=== PATIENT | male | born 1960 | race African-American/Black ===

== ENCOUNTER 2024-02-09 13:51 | Outpatient (REF) | payer OTHER, SELFPAY ==
--- OUTSIDE RECORDS SUMMARY | 2024-02-15 02:42 | XMS_ITS | Continuity of Care Document ---
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 It does not include entries that were removed or entered in error. Problem Status Onset Date Problem Type Date of Resolution Comments Source Abdominal hernia Active Condition Dec 14, 2022 Entered By: BOY DELONG Comment: Umbilical Hernia; Newly Symptomatic DEC 27: Get US of ABD Dec Entered By: BOY DELONG Comment: Consider GEN SURG Referral After US CompleteJun 27, 2023 Entered By: BOY DELONG Comment: US, ABD JUN 28: +Fat-Containing Hernia;Jun 27, 2023 Entered By: BOY DELONG Comment: PtDeejay Flanagans GEN SURG al [place] Acute bronchitis Active Condition May 14, 2022 Entered By: BOY DELONG Comment: Seen SPOPC MAR 29: Dx Bronchitis; Rx'd Abx;May 14, 2022 Entered By: BOY DELONG Comment: CXR, MAR 29 No Acute Cardio-Pulmo Disease;Apr 05, 2022 Entered By: BOY DELONG Comment: Still Has Reactive Cough (after finishing abx); Tx Symptomatically Mar Entered By: BOY DELONG Comment: CT, Thorax MAY 27 at [facility]:May 21, 2022 Entered By: BOY DELONG Comment: No Acute Pumo Processes; Some Atelectasis Present;May 21, 2022 Entered By: BOY DELONG Comment: Some Mild Interstial Thickening RML & LingulaMay 21, 2022 Entered By: BOY DELONG Comment: He Declines PULMO Consult as of MAY 27: May Choose To Go Later [place] Ambulatory ECG normal Active Condition Oct 20, 2022 Entered By: BOY DELONG Comment: EKG, OCT 27: NSR (has chest wall pain)Jun 02, 2023 Entered By: BOY DELONG Comment: ECHO (TTE) MAY 28: EF 60%; Mild LVH, Moderate Pulmonic Regurg;Jan 06, 2024 Entered By: BOY DELONG Comment: +Aortic Sclerosis; But, w/o Stenosis [place] Benign hypertension Active Condition Apr 28, 2023 Entered By: BOY DELONG Comment: US, Carotids APR 30: No Hemodynamically Signif StenosisApr 2023 Entered By: BOY DELONG Comment: US, Aorta APR 30: no AAA [place] Chronic cough Active Condition Jan Entered By: BOY DELONG Comment: Some Associ SOB; CT Thorax, JAN 28: No Signs ILD or Pulmo FibrosissNov 2023 Entered By: BOY DELONG Comment: CT, Thorax [facility] JAN 28: Neg Signs of Interstitial Lung DiseaseNov 2023 Entered By: BOY DELONG Comment: Maxilo-Fac CT [facility] JAN 28: Minimal Ethmoid/Maxillary Mucosal Thickening [place] Dyspnea Active Condition Mar 27 Entered By: BOY DELONG Comment: CXR and PFT's Done 2020 NL per pt.Apr 28, 2021 Entered By: BOY DELONG Comment: See Report CT of Thorax APR 28: Mild Interstitial Findings Apr 28, 2021 Entered By: BOY DELONG Comment: Incidental Renal & Hepatic Cysts; Get US ABD NextJun 05, 2021 Entered By: BOY DELONG Comment: Interstitial Findings c/w Post - Inflamm/Infectiou s Etio [place] Femoral acetabular impingement Active Condition Jun 10, 2023 Entered By: BOY DELONG Comment: R Side [place] Foot pain Active Condition Oct 16 Entered By: BOY DELONG Comment: Bilat Plantar Fasciitis; Bilat Pes Planus [place] Gout Active Condition Jan 05 Entered By: BOY DELONG Comment: See PM&R Addendum Note Dated NOV 28; +Crystal on Aspiration L KneeSep 2023 Entered By: BOY DELONG Comment: Rx Colchicine; Check Ur Acid at Time of Next Routine LabsSep 2023 Entered By: BOY DELONG Comment: Ur Acid Historically WNL per Labs at [facility] Housing insecurity Active Condition [facility] Hyperglycemia Active Condition Jun Entered By: BOY DELONG Comment: A1C only 5.8 as of JUN 28 [place] Low back pain Active Condition Oct Entered By: BOY DELONG Comment: Recurrent x Yrs; Not RadicularSep 2021 Entered By: BOY DELONG Comment: X-Ray, L-Spine NOV 26: Multi-Level Degen Jt. Disease/OASep 2021 Entered By: BOY DELONG Comment: Doing PT NOV 26 [place] Multiple renal cysts Active Condition Jun 05, 2021 Entered By: BOY DELONG Comment: US, ABD MAY 26: Multiple Benign-Appearing Renal CystsJun 05, 2021 Entered By: BOY DELONG Comment: also; Small Benign Hepatic Lesions [place] Nocturia Active Condition Mar 27 Entered By: BOY DELONG Comment: Bladder Outlet Syndome; Saw [facility]RO approx 2019 [place] Pain in right hip joint Active Condition Oct 13, 2022 Entered By: BOY DELONG Comment: See X-Ray Report Dated OCT 27 from [facility]: Impingement Syndrome ? [place] Pain of bilateral knee regions Active Condition Mar 27, 2021 Entered By: BOY DELONG Comment: Bone on Bone OA B/LJan 2021 Entered By: BOY DELONG Comment: PSH: Arthroscopy, L Knee (early s?)Mar 27, 2021 Entered By: BOY DELONG Comment: Gets Knee Inj's via [facility]; last seen ep 2021 Entered By: BOY DELONG Comment: X-Rays, Both Knees NOV 26: Varying Degress of OA B/LApr 2023 Entered By: BOY DELONG Comment: See Med Rehab Note, [facility] Dated MAY 27 and MAY 28Nov 2023 Entered By: BOY DELONG Comment: pending Ortho Eval FEB 27 [place] Sciatica Active Condition Feb 02 Entered By: BOY DELONG Comment: Degen Arthritis, L-Spine (X Ray Valente 2021) [place] Screening for malignant neoplasm of colon done Active Condition Mar 27, 2021 Entered By: BOY DELONG Comment: Screen Colonoscopy 2019; No CRC; +Benign PolypsMar 27, 2021 Entered By: BOY DELONG Comment: repeat 2024 [place] Diagnosis: ICD-10-CM M54.30 Sciatica, unspecified side Active Diagnosis [facility] Diagnosis: ICD-10-CM M17.0 Bilateral primary osteoarthritis of knee Active Diagnosis [facility] Diagnosis: ICD-10-CM F32.1 Major depressive disorder, single episode, moderate Active Diagnosis [facility] Diagnosis: ICD-10-CM R73.9 Hyperglycemia, unspecified Active Diagnosis [place] Diagnosis: ICD-10-CM Z59.819 Housing instability, housed unspecified Active Diagnosis [facility] Diagnosis: ICD-10-CM Z59.811 Housing instability, housed, with risk of homelessness Active Diagnosis [id number] Diagnosis: ICD-10-CM M25.859 Other specified joint disorders, unspecified hip Active Diagnosis [facility] [place] [facility] Diagnosis: ICD-10-CM Z71.89 Other specified counseling Active Diagnosis [place] Diagnosis: ICD-10-CM M25.561 Pain in right knee Active Diagnosis [facility] [place] Diagnosis: ICD-10-CM I48.11 Longstanding persistent atrial fibrillation Active Diagnosis [facility] Diagnosis: ICD-10-CM I10 Essential (primary) hypertension Active Diagnosis [facility] Diagnosis: ICD-10-CM M16.11 Unilateral primary osteoarthritis, right hip Active Diagnosis [facility] Diagnosis: ICD-10-CM M25.551 Pain in right hip Active Diagnosis [facility] [place] [facility] Diagnosis: ICD-10-CM R07.9 Chest pain, unspecified Active Diagnosis [place] Diagnosis: ICD-10-CM Z13.6 Encounter for screening for cardiovascular disorders Active Diagnosis [facility] Diagnosis: ICD-10-CM M79.651 Pain in right thigh Active Diagnosis [place] Medications Combined list of outpatient medications from Department of Defense and [facility] Affairs facilities.Medications provided include 1) outpatient medications from the last 15 months, and 2) patient-reported medications. Medication Details Route Status Patient Instructions Prescription Expires Prescription Number Last Dispense Date Ordering Provider Order Date Order Qty Source ALBUTEROL 90MCG/ACTUA T (CFC-F) INHL,ORAL,8 .5GM DOSE COUNTER INHALE 1 PUFF BY MOUTH ONCE DAILY NEEDED FOR BRONCHOS PASM RESPIR ATORY (INHAL ATION) ACTIVE 06/10/2024 [id number] BENNY DELONG 2023 1 [place] AMLODIPINE BESYLATE 10MG TAB TAKE ONE TABLET BY MOUTH ONCE DAILY FOR BLOOD PRESSURE /HEART, DO NOT TAKE WITH GRAPEFRU IT JUICE ORAL ACTIVE 01/06/2025 [id number] 4 BENNY DELONG 2023 90 [place] AMLODIPINE BESYLATE 10MG TAB TAKE ONE TABLET BY MOUTH ONCE DAILY FOR BLOOD PRESSURE /HEART, DO NOT TAKE WITH GRAPEFRU IT JUICE ORAL DISCONT INUED 04/04/2024 [id number] BENNY DELONG 2023 90 [place] AMLODIPINE BESYLATE 10MG TAB TAKE ONE TABLET BY MOUTH ONCE DAILY FOR BLOOD PRESSURE /HEART, DO NOT TAKE WITH GRAPEFRU IT JUICE ORAL DISCONT INUED 12/15/2023 [id number] BENNY DELONG 2022 90 [place] CELECOXIB 200MG CAP TAKE ONE CAPSULE BY MOUTH TWICE DAILY NEEDED FOR RHEUMATO ID ARTHRITI S ORAL ACTIVE 08/09/2024 [id number] BENNY DELONG 2023 60 [facility] CETIRIZINE HCL 10MG TAB TAKE TWO TABLETS BY MOUTH ONCE DAILY FOR ALLERGIE S ORAL ACTIVE 02/03/2025 [id number] BENNY DELONG 2023 60 [place] COLCHICINE 0.6MG TAB TAKE 2 TABLETS AT ONSET BY MOUTH ONE TIME AND TAKE 1 TABLET ONE HOUR LATER ONE TIME FOR GOUT [MAY ONLY REPEAT COURSE ONCE EVERY TWO WEEKS][T OTAL OF TWO COURSES IN 30 DAYS][6 TABLETS PER 30 DAYS] FOR GOUT [MAY ONLY REPEAT COURSE ONCE EVERY TWO WEEKS][T OTAL OF TWO COURSES IN 30 DAYS][6 TABLETS PER 30 DAYS] ORAL ACTIVE 12/27/2024 [id number] BENNY DELONG 2023 6 [place] COLCHICINE 0.6MG TAB TAKE 2 TABLETS AT ONSET BY MOUTH ONE TIME AND TAKE 1 TABLET ONE HOUR LATER ONE TIME FOR GOUT [MAY ONLY REPEAT COURSE ONCE EVERY TWO WEEKS][T OTAL OF TWO COURSES IN 30 DAYS][6 TABLETS PER 30 DAYS] FOR GOUT [MAY ONLY REPEAT COURSE ONCE EVERY TWO WEEKS][T OTAL OF TWO COURSES IN 30 DAYS][6 TABLETS PER 30 DAYS] ORAL DISCONT INUED 11/23/2024 [id number] BENNY DELONG 2023 6 [place] DOXEPIN 3MG TAB TAKE ONE TABLET BY MOUTH AT BEDTIME NEEDED FOR INSOMNIA ORAL ACTIVE 09/09/2024 [id number] ASHOK MARION 2023 30 [facility] HYALURONATE NA (DUROLANE) 20MG/ML INJ,SYRINGE ,3ML INJECT 60MG INTRA-AR TICULAR ONE TIME OSTEOART HRITIS OF THE KNEE INTRA- ARTICU LAR ACTIVE 04/01/2024 [id number] JAM MCFADDEN 2023 2 [facility] HYDROCHLORO THIAZIDE 25MG TAB TAKE ONE-HALF TABLET BY MOUTH ONCE DAILY ORAL ACTIVE 01/06/2025 [id number] 4 BENNY DELONG 2023 45 [place] HYDROCHLORO THIAZIDE 25MG TAB TAKE ONE-HALF TABLET BY MOUTH ONCE DAILY ORAL DISCONT INUED 04/04/2024 [id number] BENNY DELONG 2023 45 [place] HYDROCHLORO THIAZIDE 25MG TAB TAKE ONE-HALF TABLET BY MOUTH ONCE DAILY ORAL DISCONT INUED 12/15/2023 [id number] BENNY DELONG 2022 45 [place] LORATADINE 10MG TAB TAKE ONE TABLET BY MOUTH ONCE DAILY FOR ALLERGY ORAL DISCONT INUED BY PROVIDE R 06/10/2024 [id number] BENNY DELONG 2023 30 [place] LOSARTAN 25MG TAB TAKE ONE TABLET BY MOUTH ONCE DAILY FOR BLOOD PRESSURE /HEART ORAL ACTIVE 04/05/2024 [id number] 4 BENNY DELONG 2023 90 [place] LOSARTAN 25MG TAB TAKE ONE TABLET BY MOUTH ONCE DAILY FOR BLOOD PRESSURE /HEART ORAL DISCONT INUED 09/08/2023 [id number] BENNY DELONG 2023 90 [place] LOSARTAN 25MG TAB TAKE ONE TABLET BY MOUTH ONCE DAILY FOR BLOOD PRESSURE /HEART ORAL DISCONT INUED 08/22/2023 [id number] BALJEETBENNY HN 2023 90 [facility] LOSARTAN 25MG TAB TAKE ONE TABLET BY MOUTH ONCE DAILY FOR BLOOD PRESSURE /HEART ORAL DISCONT INUED 04/04/2024 [id number] DELONGBENNY HN 2023 30 [place] MULTIVITAMI NS CAP/TAB TAKE 1 TABLET BY MOUTH ONCE DAILY FOR VITAMIN SUPPLEME NTATION ORAL ACTIVE 10/28/2024 [id number] 4 ASHOK MARION 2023 100 [facility] SERTRALINE HCL 100MG TAB TAKE ONE-HALF TABLET BY MOUTH ONCE DAILY FOR MAJOR DEPRESSI VE DISORDER ORAL ACTIVE 10/28/2024 [id number] ASHOK MARION 2023 45 [facility] SERTRALINE HCL 100MG TAB TAKE ONE-HALF TABLET BY MOUTH ONCE DAILY FOR MAJOR DEPRESSI VE DISORDER ORAL DISCONT INUED (EDIT) 09/09/2024 [id number] ASHOK MARION 2023 15 [facility] SERTRALINE HCL 50MG TAB TAKE ONE-HALF TABLET BY MOUTH ONCE DAILY FOR MAJOR DEPRESSI VE DISORDER ORAL DISCONT INUED (EDIT) 08/05/2024 [id number] ASHOK MARION 2023 15 [facility] SILDENAFIL CITRATE 100MG TAB TAKE ONE TABLET BY MOUTH DIRECTED TAKE 1 HOUR PRIOR TO SEXUAL ACTIVITY TRY ONE HALF PILL; IF ONE HALF DOES NOT WORK THEN MAY TAKE ONE WHOLE TABLET NEXT TIME; NEVER TAKE MORE THAN ONE TABLET AT ONE TIME TAKE 1 HOUR PRIOR TO SEXUAL ACTIVITY TRY ONE HALF PILL; IF ONE HALF DOES NOT WORK THEN MAY TAKE ONE WHOLE TABLET NEXT TIME; NEVER TAKE MORE THAN ONE TABLET AT ONE TIME ORAL ACTIVE 07/25/2024 [id number] BENNY DELONG 2023 6 [place] Immunizations Combined list of available immunizations from the Department of Defense and Veterans Affairs facilities. 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 COVID-19 (PFIZER), MRNA, LNP-S, PF, 30 MCG/0.3 ML DOSE 2 2020 208 complet ed [facility] COVID-19 (PFIZER), MRNA, LNP-S, PF, 30 MCG/0.3 ML DOSE 1 2020 208 complet ed [facility] Results Combined list of recent chemistry, hematology and other laboratory results from Department of Defense and Veterans Affairs, ranging from 15 months to all on record, depending upon the facility. Order Name Results Value Reference Range Date Interpretation Specimen Comments Source MICROALB UMIN CREATINI NE RATIO PANEL MICROALBUM IN/CREATIN INE [MASS RATIO] IN URINE 13.8 mg/g 0 - 29.9 01/05 Specimen Type: URINE No comment entered. Ordering Provider: BOY DELONG Report Released Date/Time: Nov 23, 2023 08:33 AM Reporting Lab[facility] [address] [facility] [address] Performing Lab: [address] [address] [employer] MICROALB UMIN CREATINI NE RATIO PANEL MICROALBUM IN [MASS/VOLU ME] IN URINE 2.5 mg/dL 01/05 Specimen Type: URINE No comment entered. Ordering Provider: BOY DELONG Report Released Date/Time: Nov 23, 2023 08:33 AM Reporting Lab: [address] [address] Performing Lab: [address] [address] [place] MICROALB UMIN CREATINI NE RATIO PANEL CREATININE [MASS/VOLU ME] IN URINE 180.82 mg/dL 01/05 Specimen Type: URINE No comment entered. Ordering Provider: BOY DELONG Report Released Date/Time: Nov 23, 2023 08:33 AM Reporting Lab: [address] [address] Performing Lab: [address] [address] [place] URINALYS IS COLOR OF URINE Light-Ye llow 01/05 Specimen Type: URINE Comment: If Glucose = >500 and Ketones are positive, please alert the Physician. Ordering Provider: BOY DELONG Report Released Date/Time: Nov 23, 2023 08:33 AM Reporting Lab: [address] [address] Performing Lab: [address] [address] [place] URINALYS IS APPEARANCE OF URINE Clear 01/05 Specimen Type: URINE Comment: If Glucose = >500 and Ketones are positive, please alert the Physician. Ordering Provider: BOY DELONG Report Released Date/Time: Nov 23, 2023 08:33 AM Reporting Lab: [address] [address] Performing Lab: [address] [address] [place] URINALYS IS GLUCOSE [MASS/VOLU ME] IN URINE Normalmg /dL 01/05 Specimen Type: URINE Comment: If Glucose = >500 and Ketones are positive, please alert the Physician. Ordering Provider: BOY DELONG Report Released Date/Time: Nov 23, 2023 08:33 AM Reporting Lab: [facility] [address] [facility] [address] Performing Lab: [facility]AMPUSUSE[address] [address] [place] URINALYS IS KETONES [MASS/VOLU ME] IN URINE BY TEST STRIP NEGATIVE mg/dL 01/05 Specimen Type: URINE Comment: If Glucose = >500 and Ketones are positive, please alert the Physician. Ordering Provider: BOY DELONG Report Released Date/Time: Nov 23, 2023 08:33 AM Reporting Lab: [facility] [address] [address] Performing Lab: [facility] [address] [address] [place] URINALYS IS ERYTHROCYT ES [PRESENCE] IN URINE SEDIMENT BY LIGHT MICROSCOPY NEGATIVE mg/dL 01/05 Specimen Type: URINE Comment: If Glucose = >500 and Ketones are positive, please alert the Physician. Ordering Provider: BOY DELONG Report Released Date/Time: Nov 23, 2023 08:33 AM Reporting Lab: [facility] CAMPUSUSETS [address] [address] Performing Lab: [facility] CAMPUSUSE[address] [address] [place] URINALYS IS PROTEIN [MASS/VOLU ME] IN URINE BY TEST STRIP 10 mg/dL 01/05 Specimen Type: URINE Comment: If Glucose = >500 and Ketones are positive, please alert the Physician. Ordering Provider: BOY DELONG Report Released Date/Time: Nov 23, 2023 08:33 AM Reporting Lab: [facility]AMPUSUSE[address] [address] Performing Lab: [facility]ITALN [facility]AMPUSUSE[address] [address] [place] URINALYS IS NITRITE [PRESENCE] IN URINE NEGATIVE mg/dL 01/05 Specimen Type: URINE Comment: If Glucose = >500 and Ketones are positive, please alert the Physician. Ordering Provider: BOY DELONG Report Released Date/Time: Nov 23, 2023 08:33 AM Reporting Lab: [address] [address] Performing Lab: [address] [address] [place] URINALYS IS BILIRUBIN. TOTAL [PRESENCE] IN URINE NEGATIVE mg/dL 01/05 Specimen Type: URINE Comment: If Glucose = >500 and Ketones are positive, please alert the Physician. Ordering Provider: BOY DELONG Report Released Date/Time: Nov 23, 2023 08:33 AM Reporting Lab: [address] [address] Performing Lab: [address] [address] [place] URINALYS IS SPECIFIC GRAVITY OF URINE BY REFRACTOME TRY 1.024 1.016 - 1.022 01/05 H Specimen Type: URINE Comment: If Glucose = >500 and Ketones are positive, please alert the Physician. Ordering Provider: BOY DELONG Report Released Date/Time: Nov 23, 2023 08:33 AM Reporting Lab: [address] [address] Performing Lab: [address] [address] [place] URINALYS IS PH OF URINE BY TEST STRIP 5.5 5.0 - 9.0 01/05 Specimen Type: URINE Comment: If Glucose = >500 and Ketones are positive, please alert the Physician. Ordering Provider: BOY DELONG Report Released Date/Time: Nov 23, 2023 08:33 AM Reporting Lab: [address] [address] Performing Lab: [address] [address] [place] URINALYS IS UROBILINOG EN [MASS/VOLU ME] IN URINE BY TEST STRIP Normalmg /dL <2.0 - 2.0 01/05 Specimen Type: URINE Comment: If Glucose = >500 and Ketones are positive, please alert the Physician. Ordering Provider: BOY DELONG Report Released Date/Time: Nov 23, 2023 08:33 AM Reporting Lab: [facility] [address] [facility] [address] Performing Lab: [facility] [address] [facility] [address] [employer] URINALYS IS LEUKOCYTE ESTERASE [PRESENCE] IN URINE BY TEST STRIP NEGATIVE 01/05 Specimen Type: URINE Comment: If Glucose = >500 and Ketones are positive, please alert the Physician. Ordering Provider: BOY DELONG Report Released Date/Time: Nov 23, 2023 08:33 AM Reporting Lab: [address] [address] Performing Lab: [address] [address] [employer] BASIC METABOLI C PANEL (fasting ) UREA NITROGEN [MASS/VOLU ME] IN SERUM OR PLASMA 18 mg/dL 7 - 25 01/05 Specimen Type: SERUM No comment entered. Ordering Provider: BOY DELONG Report Released Date/Time: Nov 23, 2023 08:33 AM Reporting Lab: [address] [address] Performing Lab: [address] [address] [employer] BASIC METABOLI C PANEL (fasting ) GLUCOSE [MASS/VOLU ME] IN SERUM OR PLASMA 108 mg/dL 65 - 100 01/05 H Specimen Type: SERUM No comment entered. Ordering Provider: BOY DELONG Report Released Date/Time: Nov 23, 2023 08:33 AM Reporting Lab: [facility] [address] [facility] [address] Performing Lab: [address] [address] [employer] BASIC METABOLI C PANEL (fasting ) SODIUM [MOLES/VOL UME] IN SERUM OR PLASMA 140 mmol/L 135 - 145 01/05 Specimen Type: SERUM No comment entered. Ordering Provider: BOY DELONG Report Released Date/Time: Nov 23, 2023 08:33 AM Reporting Lab: [facility] [address] [facility] [address] Performing Lab: [address] [address] [place] BASIC METABOLI C PANEL (fasting ) POTASSIUM [MOLES/VOL UME] IN SERUM OR PLASMA 3.9 mmol/L 3.5 - 5.0 01/05 Specimen Type: SERUM No comment entered. Ordering Provider: BOY DELONG Report Released Date/Time: Nov 23, 2023 08:33 AM Reporting Lab: [address] [address] Performing Lab: [address] [address] [place] BASIC METABOLI C PANEL (fasting ) CHLORIDE [MOLES/VOL UME] IN SERUM OR PLASMA 111 mmol/L 100 - 110 01/05 H Specimen Type: SERUM No comment entered. Ordering Provider: BOY DELONG Report Released Date/Time: Nov 23, 2023 08:33 AM Reporting Lab: [address] [address] Performing Lab: [address] [address] [place] BASIC METABOLI C PANEL (fasting ) CARBON DIOXIDE, TOTAL [MOLES/VOL UME] IN SERUM OR PLASMA 21 meq/L 20 - 30 01/05 Specimen Type: SERUM No comment entered. Ordering Provider: BOY DELONG Report Released Date/Time: Nov 23, 2023 08:33 AM Reporting Lab: [address] [address] Performing Lab: [address] [address] [place] BASIC METABOLI C PANEL (fasting ) CREATININE [MASS/VOLU ME] IN SERUM OR PLASMA 1.13 mg/dL 0.50 - 1.40 01/05 Specimen Type: SERUM No comment entered. Ordering Provider: BOY DELONG Report Released Date/Time: Nov 23, 2023 08:33 AM Reporting Lab: [facility] [address] [facility] [address] Performing Lab: [address] [address] [place] BASIC METABOLI C PANEL (fasting ) GLOMERULAR FILTRATION RATE/1.73 SQ M.PREDICTE D [VOLUME RATE/AREA] IN SERUM, PLASMA OR BLOOD BY CREATININE -BASED FORMULA (CKD-EPI 2020) 74 mL/min 60 01/05 Specimen Type: SERUM No comment entered. Ordering Provider: BOY DELONG Report Released Date/Time: Nov 23, 2023 08:33 AM Reporting Lab: [address] [address] Performing Lab: [address] [address] [place] CALCIUM CALCIUM [MASS/VOLU ME] IN SERUM OR PLASMA 9.0 mg/dL 8.5 - 10.2 01/05 Specimen Type: SERUM No comment entered. Ordering Provider: BOY DELONG Report Released Date/Time: Nov 23, 2023 08:33 AM Reporting Lab: [address] [address] Performing Lab: [address] [address] [place] FERRITIN FERRITIN [MASS/VOLU ME] IN SERUM OR PLASMA 214 ng/mL 20 - 300 01/05 Specimen Type: SERUM No comment entered. Ordering Provider: BOY DELONG Report Released Date/Time: Nov 23, 2023 08:33 AM Reporting Lab: [address] [address] Performing Lab: [address] [address] [place] LIPID PANEL FASTING CHOLESTERO L [MASS/VOLU ME] IN SERUM OR PLASMA 168 mg/dL 01/05 Specimen Type: SERUM No comment entered. Ordering Provider: BOY DELONG Report Released Date/Time: Nov 23, 2023 08:33 AM Reporting Lab: [facility] [address] [facility] [address] Performing Lab: [facility] [address] [address] [place] LIPID PANEL FASTING TRIGLYCERI DE [MASS/VOLU ME] IN SERUM OR PLASMA 70 mg/dL 0 - 150 01/05 Specimen Type: SERUM No comment entered. Ordering Provider: BOY DELONG Report Released Date/Time: Nov 23, 2023 08:33 AM Reporting Lab: [facility] [facility] [address] [address] Performing Lab: [address] [address] [place] LIPID PANEL FASTING CHOLESTERO L IN LDL [MASS/VOLU ME] IN SERUM OR PLASMA BY CALCULATIO N 115 mg/dL 0 - 129 01/05 Specimen Type: SERUM No comment entered. Ordering Provider: BOY DELONG Report Released Date/Time: Nov 23, 2023 08:33 AM Reporting Lab: [facility] [address] [address] Performing Lab: [facility] [address] [address] [place] LIPID PANEL FASTING CHOLESTERO L.TOTAL/CH OLESTEROL IN HDL [MASS RATIO] IN SERUM OR PLASMA 4.3 01/05 Specimen Type: SERUM No comment entered. Ordering Provider: BOY DELONG Report Released Date/Time: Nov 23, 2023 08:33 AM Reporting Lab: [facility] [address] [facility] [address] Performing Lab: [facility] [address] [address] [place] LIPID PANEL FASTING CHOLESTERO L IN HDL [MASS/VOLU ME] IN SERUM OR PLASMA 39 mg/dL 40 - 60 01/05 L Specimen Type: SERUM No comment entered. Ordering Provider: BOY DELONG Report Released Date/Time: Nov 23, 2023 08:33 AM Reporting Lab: [facility]N [facility] [address] [facility] [address] Performing Lab: [facility] [address] [facility] [address] [place] LIVER FUNCTION PROTEIN [MASS/VOLU ME] IN SERUM OR PLASMA 6.8 g/dL 6.0 - 8.3 01/05 Specimen Type: SERUM No comment entered. Ordering Provider: BOY DELONG Report Released Date/Time: Nov 23, 2023 08:33 AM Reporting Lab: [facility]USE[facility] [address] [facility] [address] Performing Lab: [facility] TRN [facility] CAMPUSUSE[address] [address] [place] LIVER FUNCTION ALBUMIN [MASS/VOLU ME] IN SERUM OR PLASMA 3.9 g/dL 3.5 - 5.0 01/05 Specimen Type: SERUM No comment entered. Ordering Provider: BOY DELONG Report Released Date/Time: Nov 23, 2023 08:33 AM Reporting Lab: [facility]USUSEED[facility] [address] [facility] [address] Performing Lab: [facility] TRN [facility] CAMPUSUSETS [address] [address] [place]IVER FUNCTION ALKALINE PHOSPHATAS E [ENZYMATIC ACTIVITY/V OLUME] IN SERUM OR PLASMA 66 U/L 40 - 150 01/05 Specimen Type: SERUM No comment entered. Ordering Provider: BOY DELONG Report Released Date/Time: Nov 23, 2023 08:33 AM Reporting Lab: [facility]N [facility] [address] [facility] [address] Performing Lab: [facility] TRN [facility] CAMPUSUSETS [address] [address] [place] LIVER FUNCTION ASPARTATE AMINOTRANS FERASE [ENZYMATIC ACTIVITY/V OLUME] IN SERUM OR PLASMA 21 U/L 5 - 34 01/05 Specimen Type: SERUM No comment entered. Ordering Provider: BOY DELONG Report Released Date/Time: Nov 23, 2023 08:33 AM Reporting Lab: [facility] [address] [facility] [address] Performing Lab: [facility] [address] [address] [place] LIVER FUNCTION ALANINE AMINOTRANS FERASE [ENZYMATIC ACTIVITY/V OLUME] IN SERUM OR PLASMA 34 U/L 01/05 Specimen Type: SERUM No comment entered. Ordering Provider: BOY DELONG Report Released Date/Time: Nov 23, 2023 08:33 AM Reporting Lab: [facility] [address] [facility] [address] Performing Lab: [address] [address] [place] LIVER FUNCTION BILIRUBIN. TOTAL [MASS/VOLU ME] IN SERUM OR PLASMA 0.4 mg/dL 0.2 - 1.2 01/05 Specimen Type: SERUM No comment entered. Ordering Provider: BOY DELONG Report Released Date/Time: Nov 23, 2023 08:33 AM Reporting Lab: [address] [address] Performing Lab: [address] [address] [place] URIC ACID URATE [MASS/VOLU ME] IN SERUM OR PLASMA 5.7 mg/dL 3.5 - 7.2 01/05 Specimen Type: SERUM No comment entered. Ordering Provider: BOY DELONG Report Released Date/Time: Nov 23, 2023 08:33 AM Reporting Lab: [facility] [address] [facility] [address] Performing Lab: [address] [address] [place] VITAMIN B12 COBALAMIN (VITAMIN B12) [MASS/VOLU ME] IN SERUM OR PLASMA 636 pg/mL 200 - 900 01/05 Specimen Type: SERUM No comment entered. Ordering Provider: BOY DELONG Report Released Date/Time: Nov 23, 2023 08:33 AM Reporting Lab: [facility] [place] [facility] [address] [facility] [address] Performing Lab: [facility] [place] [facility] [address] [facility] [address] RIKA DENNIS VITAMIN D (25-OH) 25-HYDROXY VITAMIN D3 [MASS/VOLU ME] IN SERUM OR PLASMA 23 ng/mL 20 - 50 01/05 Specimen Type: SERUM No comment entered. Ordering Provider: BOY DELONG Report Released Date/Time: Nov 23, 2023 08:33 AM Reporting Lab: [facility] [place] [facility] [address] [facility] [address] Performing Lab: [facility] [place] [facility] [address] [facility] [address] RIKA DENNIS Vital Signs Combined list of inpatient and outpatient Vital Signs from Department of Defense and Veterans Affairs, ranging from 12 months to all on record, depending upon the facility. Vital Sign Value Date Comments Source SYSTOLIC BLOOD PRESSURE 130 02/03/20 15:58:31 [place] DIASTOLIC BLOOD PRESSURE 88 15:58:31 [place] WEIGHT 245.6 02/03/2024 15:58:31 [place] BMI 33kg/m2 02/03/2024 15:58:31 [place] PAIN 1 02/03/2024 15:58:31 [place] HEIGHT 72 02/03/2024 15:58:31 [place] PULSE 78 02/03/2024 15:58:31 [place] RESPIRATION 20 02/03/2024 15:58:31 [place] SYSTOLIC BLOOD PRESSURE 124 01/13/20 13:11:51 [facility] [place] [facility] DIASTOLIC BLOOD PRESSURE 70 024 13:11:51 [facility] [place] PAIN 3 01/13/2024 13:11:51 [facility] [place] [facility] SYSTOLIC BLOOD PRESSURE 101 01/06/20 24 10:15:06 [place] DIASTOLIC BLOOD PRESSURE 80 024 10:15:06 [place] PULSE OXIMETRY 95 01/06/2024 10:15:06 [place] WEIGHT 244 01/06/2024 10:15:06 [place] BMI 33kg/m2 01/06/2024 10:15:06 [place] TEMPERATURE 97 01/06/2024 10:15:06 [place] PULSE 76 01/06/2024 10:15:06 [place] RESPIRATION 18 01/06/2024 10:15:06 [place] SYSTOLIC BLOOD PRESSURE 134 06/10/19 24 11:37:12 [place] DIASTOLIC BLOOD PRESSURE 84 024 11:37:12 [place] WEIGHT 239.4 06/10/2023 11:37:12 [place] BMI 33kg/m2 06/10/2023 11:37:12 [place] TEMPERATURE 96.8 06/10/2023 11:37:12 [place] PULSE 73 06/10/2023 11:37:12 [place] SYSTOLIC BLOOD PRESSURE 130 05/23/19 24 07:41:32 [facility] [place] DIASTOLIC BLOOD PRESSURE 80 024 07:41:32 [facility] PAIN 5 05/23/2023 07:41:32 [facility] Encounters Combined list of: 1) Encounters from Department of Veterans Affairs facilities going back up to thelast 18 months. 2) Encounters from the Department of Defense facilities going back up to 280 months. Location Location Details Encounter Type Encounter Number Reason For Visit Attending Provider ADM Date DC Date Status Disposition Source [facility] Encounter [id number] 08/30 [facility] En[facility] [id number] 08/30 [facility] [place] OFF/OP EST JULY X REQ PHY/QHP [id number] Diagnos is: ICD-10- CM M79.651 Pain in right thigh<b r/> KARLOS JUSTICE IC K 08/31 [place] [facility] Encounter [id number] 08/31 [facility] Encounter [id number] 09/29 [facility] [place] OFF[place]OP EST MAY X REQ PHY/QHP [id number] Diagnos is: ICD-10- CM M25.551 Pain in right hip<br/ > RESHMA,ER IC K 09/29 [place] [facility] Out[facility] Encounter [id number] 10/08 [facility] Encounter [id number] 10/08 [facility] Out[facility] Encounter [id number] 10/11 [facility] Out[facility] Encounter [id number] 10/11 [facility] Encounter [id number] 10/18 [facility] Out[facility] Encounter [id number] 10/19 [facility] [place] OFF[place]OP EST MAY X REQ PHY/QHP [id number] Diagnos is: ICD-10- CM R07.9 Chest pain, unspeci fied
RESHMA,ER IC K 10/20 [place] [facility] Out[facility] Encounter [id number] 10/20 [facility] ELECTROCAR DIOGRAM REPORT [id number] Diagnos is: ICD-10- CM Z13.6 Encount er for screeni ng for cardiov ascular disorde rs
NESTORROCÍO Anderson Himanshu 10/20 [facility] [place] OFFICE O/P EST MOD 30-39 MIN [id number] Diagnos is: ICD-10- CM R07.9 Chest pain, unspeci fied
JILL DELONG N 10/20 [facility] [place] [facility] Outpatient Encounter [id number] 12/02 [facility] OFFICE O/P EST LOW 20-29 MIN [id number] Diagnos is: ICD-10- CM M16.11 Unilate ral primary osteoar thritis , right hip<br/ > Karlos MCFADDEN 12/07 [facility] Outpatient Encounter [id number] 12/10 [facility] Outpatient Encounter [id number] 12/10 [facility] Outpatient Encounter [id number] 12/14 [facility] EST MOD 30-39 MIN [id number] Diagnos is: ICD-10- CM I10 Essenti al (primar y) hyperte nsion<b r/> JILL DELONG N 12/14 [place] [facility] Outpatient Encounter [id number] 12/27 [facility] [place] OFF/OP EST MAY X REQ PHY/QHP [id number] Diagnos is: ICD-10- CM I10 Essenti al (primar y) hyperte nsion<b r/> STEFANO GOMEZ N 01/07 [place] [facility] OFFICE O/P EST HI 40-54 MIN [id number] Diagnos is: ICD-10- CM M25.551 Pain in right hip<br/ > SONI SMITH THI 02/02 [facility] En[facility] [id number] 02/02 [facility] Encounter [id number] 02/04 [facility] Out[facility] Encounter [id number] 03/01 [facility] OFFICE O/P EST LOW 20 MIN [id number] Diagnos is: ICD-10- CM M16.11 Unilate ral primary osteoar thritis , right hip<br/ > Karlos MCFADDEN 04/01 [facility] QNHP OL DIG ASSMT&MGMT 11- [id number] Diagnos is: ICD-10- CM M17.0 Bilater al primary osteoar thritis of knee
CRISSY BYRNE 04/01 [facility] Out[facility] En[facility] [id number] GREGORIO 04/04 [facility]P EST LOW 20 MIN [id number] Diagnos is: ICD-10- CM I10 Essenti al (primar y) hyperte nsion<b r/> JILL DELONG 04/04 [place] [facility] Outpatient Encounter [id number] 04/15 [facility] TTE W/DOPPLER COMPLETE [id number] Diagnos is: ICD-10- CM I10 Essenti al (primar y) hyperte nsion<b r/> ABDIFATAH YOON 05/12 [facility] W/DOPPLER COMPLETE [id number] Diagnos is: ICD-10- CM I48.11 Longsta nding persist ent atrial fibrill ation<b r/> Leandro BYRNES 05/15 [facility] OFFICE O/P EST LOW 20 MIN [id number] Diagnos is: ICD-10- CM M25.561 Pain in right knee
Karlos MCFADDEN 05/22 [facility] Outpatient Encounter [id number] 05/22 [facility] Outpatient Encounter [id number] 06/01 [facility] OFFICE O/P EST MOD 30 MIN [id number] Diagnos is: ICD-10- CM R73.9 Hypergl ycemia, unspeci fied
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<br/ > GABI TUCKER LIBBY O 06/20 [facility] [place] [facility] OFFICE O/P EST LOW 20 MIN [id number] Diagnos is: ICD-10- CM M25.859 Other specifi ed joint disorde rs, unspeci fied hip<br/ > Karlos MCFADDEN 06/23 [facility] Outpatient Encounter [id number] 07/04 [facility] Outpatient Encounter [id number] 07/17 [facility] PSYCH DIAGNOSTIC EVALUATION [id number] Diagnos is: ICD-10- CM F32.1 Major depress jonny disorde r, single episode , moderat e
ASHLEYLJ K 07/21 [facility] [id number] Diagnos is: ICD-10- CM M17.0 Bilater al primary osteoar thritis of knee
ABIMAEL CALL 08/02 [place] [facility] ADDL 15 MIN [id number] Diagnos is: ICD-10- CM F32.1 Major depress jonny disorde r, single episode , moderat e
ASHOK MARION 08/04 [facility] En[facility] [id number] 08/04 [facility] Encounter [id number] 08/07 [facility] Out[facility] Encounter [id number] 08/09 [facility] Out[facility] Encounter [id number] 08/10 [facility] Encounter [id number] 08/11 [facility] SELF CARE MNGMENT TRAINING [id number] Diagnos is: ICD-10- CM M17.0 Bilater al primary osteoar thritis of knee
ABIMAEL CALL 08/18 [place] [facility] En[facility] [id number]/01 [facility] Encounter [id number] 09/01 [facility] Out[facility] Encounter [id number] 09/05 [facility] MTMS BY PHARM ADDL 15 MIN [id number] Diagnos is: ICD-10- CM F32.1 Major depress jonny disorde r, single episode , moderat e
ASHOK MARION 09/08 [facility] En[facility] [id number] 09/20 [facility] En[facility] [id number] 10/06 [facility] Out[facility] Encounter [id number] 10/13 [facility] Out[facility] Encounter [id number] 10/13 [facility] Out[facility] Encounter [id number] 10/13 [facility] Encounter [id number] 10/18 [facility]counter [id number] 10/20 [facility] Out[facility] Encounter [id number] 10/23 [facility] (6[facility] HC PRO PHONE CALL 5-10 MIN [id number] Diagnos is: ICD-10- CM Z59.811 Housing instabi lity, housed, with risk of homeles sness<b r/> DIAMOND DREW 10/25 [facility]89[facility] Out[facility] Encounter [id number] 10/26 [facility] MTMS BY PHARM ADDL 15 MIN [id number] Diagnos is: ICD-10- CM F32.1 Major depress jonny disorde r, single episode , moderat e
ASHOK MARION 10/27 [facility] PT EDUCATION NOC INDIVID [id number] Diagnos is: ICD-10- CM Z59.819 Housing instabi lity, housed unspeci fied
KRISTA HESS 10/27 [facility] Out[facility] Encounter [id number] [facility] Out[facility] Encounter [id number] [facility] Out[facility] Encounter [id number] 11/13 [facility] Out[facility] Encounter [id number] [facility] OFFICE O/P EST LOW 20 MIN [id number] Diagnos is: ICD-10- CM M17.0 Bilater al primary osteoar thritis of knee
Karlos MCFADDEN 11/16 [facility] En[facility] [id number] 11/16 [facility] Out[facility] Encounter [id number] 11/22 [facility] Out[facility] Encounter [id number] 12/01 [facility] HC PRO PHONE CALL 5-10 MIN [id number] Diagnos is: ICD-10- CM Z59.819 Housing instabi lity, housed unspeci fied
KRISTA HESS 12/06 [facility] En[facility] [id number] 12/25 [facility] HC PRO PHONE CALL 5-10 MIN [id number] Diagnos is: ICD-10- CM Z59.819 Housing instabi manday, housed unspeci fied
KRISTA HESS 01/02 [facility] Out[facility] Encounter [id number] RA MIRTHA BLUM 01/04 [facility] OFFICE O/P EST MOD 30 MIN [id number] Diagnos is: ICD-10- CM R73.9 Hypergl ycemia, unspeci fied
JILL DELONG 01/05 [place] [facility] MTMS BY PHARM ADDL 15 MIN [id number] Diagnos is: ICD-10- CM F32.1 Major depress jonny disorde r, single episode , moderat e
ASHOK MARION 01/12 [facility] OFFICE O/P EST LOW 20 MIN [id number] Diagnos is: ICD-10- CM M17.0 Bilater al primary osteoar thritis of knee
Karlos MCFADDEN 01/12 [facility] Outpatient Encounter [id number] 01/22 [facility] Outpatient Encounter [id number] 1.01/23 [facility] [place] OFFICE O/P EST MOD 30 MIN [id number] Diagnos is: ICD-10- CM M54.30 Sciatic a, unspeci fied side
JILL DELONG 02/02 [place] [facility] [place] Social History Combined list of available smoking, tobacco, and other social history from Department of Defense and Veterans Affairs facilities. Social History Type Response Date Comment Sourc e Tobacco smoking status [facility] NEVER USED 06/10/19 [place] History of tobacco use MA-TOBACCO NEVER USED 05/14/2022 [place] History of tobacco use MA-TOBACCO NEVER USED 03/27/2021 [place] Plan of Care List of future care activities from Department of Veterans Affairs facilities. Additional future care activities may be listed in the Assessment and Plan section. Date/Time Care Activity Care Activity Detail Facili ty 02/17/2024 AMBULATORY - REHAB MEDICINE AMBULATORY - REHAB MEDICINE [place] 03/01/2024 AMBULATORY - MEDICINE AMBULATORY - MEDICI [place] [facility] 04/06/2024 AMBULATORY - PSYCHIATRY AMBULATORY - PSYC HIATRY [facility] 05/14/2024 AMBULATORY - MEDICINE AMBULATORY - MEDICI [place] [facility] [place] 01/13/2024 Consult Order COMMUNITY CARE-O RTHO SURGICAL Cons Control Tower Operator's Choice [facility] 02/03/2024 Consult Order PHYSICAL THERAPY /SPOPC OUTPT Cons Control Tower Operator's Choice [place] 02/10/2024 Laboratory - Director Of Physician Practices ry Order RHEUMATOID FACTOR BLOOD (SST-SERUM) [facility] 02/10/2024 Laboratory - Director Of Physician Practices ry Order HLA-B27 (QU) BLOOD ([id number]) [facility] 02/10/2024 Laboratory - Director Of Physician Practices ry Order MICHA SCREEN/TITER BLOOD (SST-GOLD) [facility] 02/10/2024 Laboratory - Director Of Physician Practices ry Order C REACTIVE PROTEIN HS (WROX) BLOOD (SST-SERUM) [facility] 02/10/2024 Laboratory - Director Of Physician Practices ry Order SED RATE, AUTOMATED BLOOD (LAV-BLOOD) [facility]
--- OUTSIDE RECORDS SUMMARY | 2024-02-15 02:42 | XMS_ITS | Encounter Summary ---
Author Name [facility] [place] [facility] [place] Address [address] [place] [address] Care Team Providers Care Subpoena Server Name Role Phone BOY DELONG Primary Care Provider Unavailabl e Insurance Providers: All historical and current Section Date Range: From patient's date of to the date document was created. This section includes the names of all active insurance providers for the patient. Insurance Provider Type of Coverage Plan Name Start of Policy Coverage End of Policy Coverage Group Number Member ID Insurance Provider's Telephone Number Policy Canales's Name Patient's Relationship to Policy Canales [employer] RX PRESCRIPT ION HEALT H [place] [facility] Mar 07, 2020 [facility] [id number] MARGARETH HONG RRYL PATIENT Selected Encounter This section includes the information on record at [place] for the Encounter. Date/Time Encounter Type Encounter Description Reason Pro vider Source Mar 01, 2023 11:40 AM Outpatient Encounter TELEPHONE/REHAB AND SUPPORT IHE Encounter Template Text not used by [place] Plan of Treatment: Future Appointments (+ 6 months) and Future Tests (+/- 45 days) The Plan of Treatment section includes future care activities for the patient from all [place] treatmentfacilities. This section includes future appointments and future orders which are active, pending or scheduled. Future Appointments This section includes appointments that were scheduled to occur 6 months from the date of the Encounter, up to a maximum of 20 appointments. The data comes from all [place] treatment facilities. Appointment Date/Time Appointment Type Appointme nt Facility Name Apr 01, 2023 11:00 AM AMBULATORY - [facility] [place] [facility] Apr 04, 2023 03:00 PM [facility] Apr 15, 2023 01:30 PM [facility]ICINE [facility] Apr 22, 2023 12:30 PM AMBULATORY - NONE [facility] [place] [facility] May 13, 2023 11:00 AM AMBULATORY - NONE [facility] [place] [facility] May 23, 2023 07:30 AM AMBULATORY - REHAB MEDICIN [facility] [place] [facility] Jun 10, 2023 11:30 AM [facility] Jun 17, 2023 08:00 AM AMBULATORY - PSYCHIATRY [facility] Jun 21, 2023 08:00 AM AMBULATORY - PSYCHIATRY [facility] Jun 24, 2023 11:00 AM AMBULATORY - NONE [facility] [place] [facility] Jun 24, 2023 11:30 AM AMBULATORY - REHAB MEDICIN [facility] [place] [facility] July 22, 2023 01:00 PM AMBULATORY - PSYCHIATRY [facility] August 03, 2023 08:00 AM AMBULATORY - REHAB [facility]ICIN [facility] August 05, 2023 09:00 AM AMBULATORY - PS[facility]IATRY [facility] [place] [facility] August 05, 2023 03:00 PM AMBULATORY - PS[facility]AT[facility] [place] [facility] Aug 11, 2023 10:40 AM AM[facility]ULATORY [facility] [place] [facility] Aug 19, 2023 10:00 AM AMBULATORY - REHAB [facility] Radiology Reports: +/- 30 days of the encounter Radiology Reports For cases when an order for radiology services may have been completed prior to the date of the Encounter, the report list includes the Radiology Reports that were completed up to 30 days before dateof the Encounter. For cases when an order for radiology services may have been completed after the date of the Encounter, the report list also includes the Radiology Reports that were completed up to30 days after date of the Encounter. The data comes from all [place] treatment [facility]. Date/Time Radiology Report Provider Source Feb 02, 2023 02:49 PM FLUOROSCOPIC MIRELA NCE FOR NEEDLE PLACEMENT: LUPILLO HONG [id number] -1960 M Exm Date: FEB 02, 2023@14:49 Req Phys: SONI SMITH Pat Loc: CWM/NO/MED REHAB/SPINE INJ (Re Img Loc: MNM/BUILDING 1 Service: Unknown (Case [id number] COMPLETE) FLUOROSCOPIC GUIDANCE FOR NEEDLE (RAD Detailed) CPT:47022 Reason for Study: Hip joint inj Clinical History: Report Status: Verified Date Reported: FEB 03, 2023 Date Verified: FEB 03, 2023 Shale Planer Operator Helper E-Sig:/IVONE/LEORA STEINBERG JR Report: Study: Pain injection of the right hip. Findings: Fluoroscopic guidance was provided to Pain Management for interventional pain injection. No dictation provided for this study. Images captured for documentation only. Total fluoroscopy time used was 6.1 seconds. Total cumulative dose is 2.55 mGy. Impression: Fluoroscopic guidance for interventional pain injection. Primary Diagnostic Code: No immediate attention required Primary Interpreting Staff: LEORA STEINBERG JR, Radiologist (Shale Planer Operator Helper) /LEORA HANSON JR [facility] Encounter Notes: All associated encounter notes This section contains the clinical notes associated to the Encounter. Date/Time Encounter Note(s) Provider Source Mar 16, 2023 08:39 AM ADDENDUM: LOCAL TITLE: Addendum STANDARD TITLE: ADDENDUM DATE OF NOTE: MAR 16, 2023@08:39:43 ENTRY DATE: MAR 16, 2023@08:39:44 AUTHOR: SARITA GREWAL EXP COSIGNER: URGENCY: STATUS: COMPLETED RTC entered /ivone/ Sarita Grewal RN Med Rehab Signed: 03/16/2023 08:39 Receipt Acknowledged By: 03/16/2023 09:02 /barbara GABRIEL ADVANCED CONCESSION MANAGER ========= --- Original Document --- 03/01/23 TELEPHONE NOTE/SPECIALTY CLINIC: called stating he was waiting for a call to set up his next appointment. Please advise on scheduling. /ivone/ ABDI ARORA CONCESSION MANAGER Signed: 03/01/2023 11:41 Receipt Acknowledged By: * AWAITING SIGNATURE * SONI SMITH 03/14/2023 ADDENDUM STATUS: COMPLETED Carlin called again requesting guidance on how to proceed with his scheduling /es/ BEVERLY PEREZ ADVANCED CONCESSION MANAGER Signed: 03/14/2023 15:24 Receipt Acknowledged By: 03/16/2023 08:39 /barbara Grewal RN Med Rehab * AWAITING SIGNATURE * JAM MCFADDEN RACHAEL M [facility] [place] [facility] Mar 14, 2023 03:23 PM ADDENDUM: LOCAL TITLE: Addendum STANDARD TITLE: ADDENDUM DATE OF NOTE: MAR 14, 2023@15:23:31 ENTRY DATE: MAR 14, 2023@15:23:32 AUTHOR: BEVERLY PEREZ COSIGNER: URGENCY: STATUS: COMPLETED Carlin called again requesting guidance on how to proceed with his scheduling /es/ BEVERLY PEREZ ADVANCED CONCESSION MANAGER Signed: 03/14/2023 15:24 Receipt Acknowledged By: 03/16/2023 08:39 /barbara Grewal RN Med Rehab 03/24/2023 13:51 /ivone/ JAM MCFADDEN [facility] ========= --- Original Document --- 03/01/23 TELEPHONE NOTE/SPECIALTY CLINIC: Carlin called stating he was waiting for a call to set up his next appointment. Please advise on scheduling. /ivone/ ABDI ARORA CONCESSION MANAGER Signed: 03/01/2023 11:41 Receipt Acknowledged By: * AWAITING SIGNATURE * SONI SMITH 03/16/2023 ADDENDUM STATUS: COMPLETED RTC entered /ivone/ Sarita Grewal RN Med Rehab Signed: 03/16/2023 08:39 Receipt Acknowledged By: 03/16/2023 09:02 /ivone/ SABRINA GABRIEL ADVANCED CONCESSION MANAGER 03/24/2023 ADDENDUM STATUS: UNSIGNED You may not VIEW this UNSIGNED Addendum. BEVERLY PREEZ [facility] [place] [facility] Mar 01, 2023 11:40 AM TELEPHONE ENCOUNTE R NOTE: LOCAL TITLE: TELEPHONE NOTE/SPECIALTY CLINIC STANDARD TITLE: TELEPHONE ENCOUNTER NOTE DATE OF NOTE: MAR 01, 2023@11:40 ENTRY DATE: MAR 01, 2023@11:40:34 AUTHOR: ABDI ARORA EXP COSIGNER: URGENCY: STATUS: COMPLETED TELEPHONE NOTE/SPECIALTY CLINIC Has ADDENDA Carlin called stating he was waiting for a call to set up his next appointment. Please advise on scheduling. /ivone/ ABDI ARORA CONCESSION MANAGER Signed: 03/01/2023 11:41 Receipt Acknowledged By: 12/23/2023 23:29 /ivone/ SONI SMITH DO SECURITY INSTALLATION SALES TECHNICIAN 03/14/2023 ADDENDUM STATUS: COMPLETED Carlin called again requesting guidance on how to proceed with his scheduling /ivone/ BEVERLY PEREZ ADVANCED CONCESSION MANAGER Signed: 03/14/2023 15:24 Receipt Acknowledged By: 03/16/2023 08:39 /ivone/ Sarita Grewal RN Med Rehab 03/24/2023 13:51 /ivone/ JAM ESPINALJessica 03/16/2023 ADDENDUM STATUS: COMPLETED RTC entered /ivone/ Sarita Grewal RN Med Rehab Signed: 03/16/2023 08:39 Receipt Acknowledged By: 03/16/2023 09:02 /ivone/ SABRINA GABRIEL ADVANCED CONCESSION MANAGER 03/24/2023 ADDENDUM STATUS: COMPLETED VVC scheduled for 04/01/23 /barbara ESPINAL,P Signed: 03/24/2023 13:52 ABDI ARORA [facility] [place] [facility]
--- OUTSIDE RECORDS SUMMARY | 2024-02-15 02:43 | XMS_ITS | Encounter Summary ---
Author Name [facility] [place] [place] Address [address] [place] [address] Care Team Providers Care Fish Agent Name Role Phone BOY DELONG Primary Care [...] RX PRESCRIPT ION HEALT H NEW [place] [facility] Mar 07, 2020 [facility] [id number] MARGARETH HONG RRYL PATIENT Selected Encounter This section includes the information on record at [place] for the Encounter. Date/Time Encounter Type Encounter Description Reason Provider Source Apr 04, 2023 03:00 PM OFFICE O/P EST LOW 20 MIN PRIMARY CARE/MEDICINE ICD-10-CM I10 Essential (primary) hypertension BOY DELONG Encounter Template Text not used by CT Assessments - Encounter Diagnoses This section includes the primary and secondary diagnoses documented for the Encounter. Date/Time Primary/Secondary Diagnosis Diagnosis Name Provider Source Apr 04, 2023 04:33 PM PRIMARY Essential (primary) hypertension BOY DELONG Plan of Treatment: Future Appointments (+ 6 months) and Future Tests (+/- 45 days) The Plan of Treatment section includes future care activities for the patient from all [place] treatmentfacilities. This section includes future appointments and future orders which are active, pending or scheduled. Future Appointments This section includes appointments that were scheduled to occur 6 months from the date of the Encounter, up to a maximum of 20 appointments. The data comes from all [place] treatment [facility]. Appointment Date/Time Appointment Type Appointme nt Facility Name Apr 15, 2023 01:30 PM AMBULATORY - MEDICINE [facility] Apr 22, 2023 12:30 PM AMBULATORY - NONE [facility] [place] [facility] May 13, 2023 11:00 AM AMBULATORY - NONE [facility] [place] [facility] May 23, 2023 07:30 AM AMBULATORY - REHAB MEDICIN E [facility] [place] [facility] Jun 10, 2023 11:30 AM AMBULATORY - MEDICINE [facility] Jun 17, 2023 08:00 AM AMBULATORY - PSYCHIATRY [facility] Jun 21, 2023 08:00 AM AMBULATORY - PSYCHIATRY [facility] Jun 24, 2023 11:00 AM AMBULATORY - NONE [facility] [place] [facility] Jun 24, 2023 11:30 AM AMBULATORY - REHAB MEDICIN E [facility] [place] [facility] July 22, 2023 01:00 PM AMBULATORY - PSYCHIATRY [facility] August 03, 2023 08:00 AM AMBULATORY - REHAB MEDICIN [facility] August 05, 2023 09:00 AM AMBULATORY - PS[facility]CHIATRY [facility] [place] [facility] August 05, 2023 03:00 PM AMBULATORY - PS[facility]CHIATRY [facility] [place] [facility] Aug 11, 2023 10:40 AM AMBULATORY - MEDICINE [facility] [place] [facility] Aug 19, 2023 10:00 AM AMBULATORY - REHAB MEDICIN [facility] Sep 09, 2023 09:30 AM AMBULATORY - PSYCHIATRY [facility] [place] [facility] Vital Signs: All taken on the encounter date This section contains inpatient and outpatient Vital Signs collected on the date of the Encounter. Date/Time Temperature Pulse Blood Pressure Respiratory Rate SP02 Pain Height Weight Body Mass Index Source Apr 04, 2023 03:41 PM 68 138/82 18 97 240 33 [place] Social History: Smoking Status (Most current) and Tobacco Use (All prior to encounter date) This section includes the most current, and the historical, smoking and tobacco- related health factors from the [place] facility where the Encounter took place. Current Smoking Status This section includes the most current smoking, or tobacco-related health factor, from the [place] facility where the Encounter took place. Date/Time Current Smoking Status Comment Matthew blankenship May 14, 2022 11:[address]-TOBACCO NEVER USED [facility] Tobacco Use History This section includes a history of the smoking, or tobacco-related health factors, that were collected on or before the date of the Encounter. The data comes from the [place] facility where the Encounter took place. Date/Time Smoking Status/Tobacco Use Comment F sabrina Mar 27, 2021 11:[address]-TOBACCO NEVER USED [facility] Radiology Reports: +/- 30 days of the [...] the Encounter. The data comes from all [place] treatment facilities. Date/Time Radiology Report Provider Source Apr 22, 2023 12:32 PM NON-INVAS. CAROTID IMAGING: LUPILLO HONG [id number] -1960 M Exm Date: APR 22, 2023@12:32 Req Phys: BOY DELONG Loc: CWM/SO/PACT 3 WH (Req'g Loc) Img Loc: ULTRASOUND Service: Unknown (Case [id number] COMPLETE) NON-INVAS. CAROTID IMAGING (US Detailed) CPT:41810 Reason for Study: HTN Clinical History: screen Report Status: Verified Date Reported: APR 24, 2023 Date Verified: APR 24, 2023 Seam Feller E-Sig: Report: NON-INVAS. CAROTID IMAGING HISTORY: Reason for Study: HTN screen. COMPARISON: No prior exams for comparison TECHNIQUE: Duplex imaging of the carotid arteries was performed at the local [place] facility utilizing grayscale, color Doppler and spectral analysis. 31 images were received by the CT National Teleradiology Program (NTP) for interpretation. FINDINGS: Velocities reported as peak systolic velocity/end-diastolic velocity (PSV/EDV). RIGHT SIDE: Plaque: There appears be mild intimal hyperplasia of the right common carotid artery. Right Proximal CCA (cm/sec): 86/20 Right Distal CCA (cm/sec): 75/22 Right External CA (cm/sec): 58 Right Proximal ICA (cm/sec): 38/11 Right Distal ICA (cm/sec): 60/21 Right Vertebral Artery: Antegrade flow. Velocity (cm/sec) = 40/14 Right ICA/CCA Ratio: 0.69 LEFT SIDE: Plaque: There appears be mild interval hypoplasia of the left common carotid artery. Left Proximal CCA (cm/sec): 65/16 Left Distal CCA (cm/sec): 66/20 Left External CA (cm/sec): 63 Left Proximal ICA (cm/sec): 45/16 Left Distal ICA (cm/sec): 75/32 Left Vertebral Artery: Antegrade flow. Velocity (cm/sec)= 44/17 Left ICA/CCA Ratio: 1.13 Impression: 1. No evidence of hemodynamically significant stenosis in the bilateral carotid and vertebral arteries as described. Consensus Panel Lafleur-Scale and Doppler US Criteria for Diagnosis of ICA Stenosis (Toby, Radiology 01/2003) Normal ICA PSV < 125 cm/sec Plaque Estimate None ICA/CCA PSV Ratio < 2.0 ICA EDV < 40 cm/sec < 50% ICA PSV < 125 cm/sec Plaque Estimate < 50% ICA/CCA PSV Ratio < 2.0 ICA EDV < 40 cm/sec 50- 69% ICA PSV 125-230 cm/sec Plaque Estimate > or = 50% ICA/CCA PSV Ratio 2.0-4.0 ICA EDV 40-100 cm/sec > or = 70%, less than near occlusion ICA PSV > 230 cm/sec Plaque Estimate > or = 50% ICA/CCA Ratio > 4.0 ICA EDV > 100 cm/sec READING PHYSICIAN: Lloyd Sanchez M.D. -[id number] 04/23/2023 19:24 [facility] National Teleradiology Program [phone] (For Medical Practitioner Use Only) Attention Patients / Veterans: If you have questions or concerns about these test results, please contact your ordering provider or primary care team. Primary Diagnostic Code: NO ALERT REQUIRED Primary Interpreting Staff: RADIOLOGY,OUTSIDE SERVICE, Staff Physician / RADIOLOGY,OUTSIDE SERVICE [facility] [place] Apr 22, 2023 12:31 PM ULTRASOUND AAA SCREENING: LUPILLO HONG [id number] -1960 M Exm Date: APR 22, 2023@12:31 Req Phys: BOY DELONG Loc: CWM/SO/PACT 3 WH (Req'g Loc) Img Loc: ULTRASOUND Service: Unknown (Case [id number] COMPLETE) ULTRASOUND AAA SCREENING (US Detailed) CPT:34766 Reason for Study: HTN Clinical History: screen Report Status: Verified Date Reported: APR 23, 2023 Date Verified: APR 23, 2023 Seam Feller E-Sig: Report: ULTRASOUND AAA SCREENING PROVIDED CLINICAL INDICATION: Reason for Study: HTN screen TECHNIQUE: Grayscale, color Doppler ultrasound images submitted for review a total of 17 images are provided COMPARISON: No prior studies available. FINDINGS: Proximal abdominal aorta measures approximately 2.6 cm in AP dimension in the sagittal plane, 2.4 x 2.2 cm in transverse dimensions. Mid abdominal aorta measures approximately 2.3 cm in AP dimension in the sagittal plane, 2.1 x 2.4 cm in transverse dimensions. Distal abdominal aorta measures approximately 2.2 cm in AP dimension in the sagittal plane, 2.2 x 2.2 cm in transverse dimensions. The right and left common iliac artery measures up to approximately 1.3 cm in diameter and 1.4 cm in diameter respectively. Impression: No evidence of abdominal aortic aneurysm identified. READING PHYSICIAN: Lloyd Sanchez M.D. -[id number] 04/23/2023 16:56 [facility] National Teleradiology Program [phone] (For Medical Practitioner Use Only) Attention Patients / Veterans: If you have questions or concerns about these test results, please contact your ordering provider or primary care team. Primary Diagnostic Code: NO ALERT REQUIRED Primary Interpreting Staff: RADIOLOGY,OUTSIDE SERVICE, Staff Physician / RADIOLOGY,OUTSIDE SERVICE [facility] Encounter Notes: All associated encounter notes This section contains the clinical notes associated to the Encounter. Date/Time Encounter Note(s) Provider Source Apr 28, 2023 09:28 AM PHYSICIAN EVERARDO Cantu NOTE: LOCAL TITLE: PA NOTE STANDARD TITLE: PHYSICIAN WEIGHT CALLER NOTE DATE OF NOTE: APR 28, 2023@09:28 ENTRY DATE: APR 28, 2023@09:28:08 AUTHOR: BOY DELONG EXP COSIGNER: URGENCY: STATUS: COMPLETED i called spoke pt discused US carotids no sign stenosis echo TTT pending /ivone/ BOY DELONG PA-C STAFF PHYSICIAN WEIGHT CALLER Signed: 04/28/2023 09:28 DELONGBOY MILES Apr 04, 2023 03:44 PM PHYSICIAN EVERARDO Cantu NOTE: LOCAL TITLE: LEANDER CARRASQUILLO STANDARD TITLE: PHYSICIAN WEIGHT CALLER NOTE DATE OF NOTE: APR 04, 2023@15:44 ENTRY DATE: APR 04, 2023@15:44:52 AUTHOR: BOY DELONG EXP COSIGNER: URGENCY: STATUS: COMPLETED S - concerned about bp being high at home all of a sudden sometimes lightheaded sbp's range from 140 - 160's O - EYES: anicteric oU NECK: no bruits no NVD LUNGS: resp full reg unlabored; CTA b/l COR: RRR, no M EXT: no LLE A/P - HTN - BP 138/82; HR 68 - cont Norvasc and HCTZ - add ARB - RN: Re-Check BP Next Week - Investigations: ECHO US of Carotids and Aorta RTC and See PCP end MAY 28 - review all the above Medication Reconciliation: Outpatient: Has the patient been taking medications as documented in the EMLR? YES: The patient has been taking medications as documented in the EMLR. Essential Medication List for Review used to complete this medication reconciliation. INCLUDED IN THIS LIST: Alphabetical list of active outpatient prescriptions dispensed from this VA (local) and dispensed from another VA or DoD facility (remote) as well as inpatient orders (local, pending and active), local clinic medications, locally documented non-VA medications, and local prescriptions that have or been discontinued in the past 90 days. - All changes in medications, including all non-VA/Herbal/OTC medications were entered into CPRS. Changes: noter - If there were any medications the patient should no longer take, they were discontinued. - The patient/caregiver was instructed to update this list, discard old lists, and take this list to the next appointment, whether with a VA or non-VA provider. /ivone/ BOY DELONG PA-C STAFF PHYSICIAN WEIGHT CALLER Signed: 04/04/2023 16:33 [facility] Apr 04, 2023 03:41 PM PREVENTIVE MEDICIN E NURSING NOTE: LOCAL TITLE: CLINICAL REMINDERS/NURSING STANDARD TITLE: PREVENTIVE MEDICINE NURSING NOTE DATE OF NOTE: APR 04, 2023@15:41 ENTRY DATE: APR 04, 2023@15:41:19 AUTHOR: SUZETTE WOO EXP COSIGNER: URGENCY: STATUS: COMPLETED BMI>30/>24.99 High Risk: Patient declines to discuss weight management. Patient declined weight discussion. Discussed revisiting at a future visit. Tdap Immunization: The patient declines to receive the recommended dose of Tdap vaccine. Immunization: TDAP Refusal Reason: PATIENT DECISION Patient refuses all immunization(s) in the TDAP group Date Documented: 04/04/23 15:45 Herpes Zoster (Shingles) Vaccine: The patient declines to receive the recommended dose of zoster (shingles) vaccine. Immunization: ZOSTER RECOMBINANT Refusal Reason: PATIENT DECISION Patient refuses all immunization(s) in the ZOSTER group Comment: Not today Date Documented: 04/04/23 15:46 /ivone/ SUZETTE WOO LPN LICENSED PRACTICAL NURSE Signed: 04/04/2023 15:46 SUZETTE WOO [facility]
--- OUTSIDE RECORDS SUMMARY | 2024-02-15 02:43 | XMS_ITS | Encounter Summary ---
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 Date/Time Encounter Type Encounter Description Reason Provider Source Apr 04, 2023 11:06 AM Outpatient Encounter TELEPHONE TRIAGE SÁNCHEZ SANCHEZ Rosibel Encounter Template Text not used by [place] Plan of Treatment: Future Appointments (+ 6 months) and Future Tests (+/- 45 days) The Plan of Treatment section includes future care activities for the patient from all [place] treatmentfacilities. This section includes future appointments and future orders which are active, pending or scheduled. Future Appointments This section includes appointments that were scheduled to occur 6 months from the date of the Encounter, up to a maximum of 20 appointments. The data comes from all [place] treatment facilities. Appointment Date/Time Appointment Type Appointme nt Facility Name Apr 15, 2023 01:30 PM AMBULATORY - MEDICINE [facility] Apr 22, 2023 12:30 PM AMBULATORY - NONE [facility] [place] [facility] May 13, 2023 11:00 AM AMBULATORY - NONE [facility] [place] [facility] May 23, 2023 07:30 AM AMBULATORY - REHAB MEDICIN E [facility] [place] [facility] Jun 10, 2023 11:30 AM AMBULATORY - MEDICINE [facility] Jun 17, 2023 08:00 AM AMBULATORY - PSYCHIATRY [facility] Jun 21, 2023 08:00 AM AMBULATORY - PSYCHIATRY [facility] Jun 24, 2023 11:00 AM AMBULATORY - NONE [facility] [place] [facility] Jun 24, 2023 11:30 AM AMBULATORY - REHAB MEDICIN E [facility] [place] [facility] July 22, 2023 01:00 PM AMBULATORY - PSYCHIATRY [facility] August 03, 2023 08:00 AM AMBULATORY - REHAB MEDICIN E [place] August 05, 2023 09:00 AM AMBULATORY - [facility]AT[facility] [place] August 05, 2023 03:00 PM AMBULATORY - [facility]AT[facility] [place] [facility] Aug 11, 2023 10:40 AM AM[facility]ULATORY [facility]ICINE [facility] [place] [facility] Aug 19, 2023 10:00 AM AMBULATORY - REHAB MEDICIN E [place] Sep 09, 2023 09:30 AM AMBULATORY - PS[facility]IATRY [facility] [place] Radiology Reports: +/- 30 days of the [...] the Encounter. The data comes from all [place] treatment [facility]. Date/Time Radiology Report Provider Source Apr 22, 2023 12:32 PM NON-INVAS. CAROTID IMAGING: LUPILLO HONG [id number] -1960 M Exm Date: APR 22, 2023@12:32 Req Phys: BOY DELONG Loc: CWM/SO/PACT 3 WH (Req'g Loc) Img Loc: ULTRASOUND Service: Unknown (Case [id number] COMPLETE) NON-INVAS. CAROTID IMAGING (US Detailed) CPT:42520 Reason for Study: HTN Clinical History: screen Report Status: Verified Date Reported: APR 24, 2023 Date Verified: APR 24, 2023 Multigrapher E-Sig: Report: NON-INVAS. CAROTID IMAGING HISTORY: Reason for Study: HTN screen. COMPARISON: No prior exams for comparison TECHNIQUE: Duplex imaging of the carotid arteries was performed at the local [place] facility utilizing grayscale, color Doppler and spectral analysis. 31 images were received by the [place] National Teleradiology Program (NTP) for interpretation. FINDINGS: [...] 100 cm/sec READING PHYSICIAN: Lloyd Sanchez M.D. -[id number] 04/23/2023 19:24 [facility] National Teleradiology Program [phone] (For Medical Practitioner Use Only) Attention Patients / Veterans: If you have questions or concerns about these test results, please contact your ordering provider or primary care team. Primary Diagnostic Code: NO ALERT REQUIRED Primary Interpreting Staff: RADIOLOGY,OUTSIDE SERVICE, Staff Physician / RADIOLOGY,OUTSIDE SERVICE [facility] Apr 22, 2023 12:31 PM ULTRASOUND AAA SCREENING: JORDAN HONGL SMILEY [id number] -1960 M Exm Date: APR 22, 2023@12:31 Req Phys: BOY DELONG Loc: CWM/SO/PACT 3 WH (Req'g Loc) Img Loc: ULTRASOUND Service: Unknown (Case [id number] COMPLETE) ULTRASOUND AAA SCREENING (US Detailed) CPT:00719 Reason for Study: HTN Clinical History: screen Report Status: Verified Date Reported: APR 23, 2023 Date Verified: APR 23, 2023 Multigrapher E-Sig: Report: ULTRASOUND AAA SCREENING PROVIDED CLINICAL [...] aneurysm identified. READING PHYSICIAN: Lloyd Sanchez M.D. -[id number] 04/23/2023 16:56 [facility] National Teleradiology Program [phone] (For Medical Practitioner Use Only) Attention Patients / Veterans: If you have questions or concerns about these test results, please contact your ordering provider or primary care team. Primary Diagnostic Code: NO ALERT REQUIRED Primary Interpreting Staff: RADIOLOGY,OUTSIDE SERVICE, Staff Physician / RADIOLOGY,OUTSIDE SERVICE [facility] Encounter Notes: All associated encounter notes This section contains the clinical notes associated to the Encounter. Date/Time Encounter Note(s) Provider Source Apr 04, 2023 11:37 AM ADDENDUM: LOCAL TITLE: Addendum STANDARD TITLE: ADDENDUM DATE OF NOTE: APR 04, 2023@11:37:32 ENTRY DATE: APR 04, 2023@11:37:33 AUTHOR: TEJA LUTZ COSIGNER: URGENCY: STATUS: COMPLETED FYI---Amlodipine & HCTZ was last dispensed 12/14/2022 for 90 days, should have been out of these medications on or around 03/12/2023 if taking as prescribed, please discuss with at todays visit. Thanks /ivone/ Teja Lutz RN Registered Nurse (RN) Signed: 04/04/2023 11:41 Receipt Acknowledged By: 04/04/2023 12:46 /ivone/ BOY DELONG PA-C STAFF PHYSICIAN PLC TECHNICIAN --- Original Document --- 04/04/23 CCC: CLINICAL TRIAGE: Patient Demographics Patient Name: LUPILLO HONG Patient Primary Address: [address] [place] [address] Patient Primary Phone: [phone] Patient : 1960 Patient Age: 62 Caller/Recipient Relation to Patient: Self Emergency Contact: KB HONG Triage Summary Conducted triage/discussed symptoms Pain Score: 0 (No Pain) Utilized the Triage Tool: Yes Chief Complaint: Blood Pressure Check System WHEN: Within 3 Days Nurse's Recommendation / WHEN: Within 3 Days System WHERE: Clinic Nurse's Recommendation / WHERE: Clinic/[facility] Patient Disposition Patient/Caregiver agrees to plan of care: Yes Nursing Plan and Disposition Referred Patient for In-Person Appt Other course(s) of action Transferred patient to Sched & Admin-Apt Generated msg to PACT/Provider Provided guidance for worsening symptoms: *Caller/Patient* advised to call facilities [place] Clinical Contact Center or seek immediate medical attention for new or worsening symptoms Nurse Summary Nurse Summary: Elijah reports HTN with home bp monitoring for the past week or so. He has no symptoms at this time although has noted intermittent lightheadedness, headaches. He states that his most recent BP today was 165/97 with HR 71. When he has a headache caffeine from coffee seems to help however he finds himself then feeling a crash afterwards. Denies taking any known stimulants but does take OTC supplements. Marvat reports taking his blood pressure medications as prescribed daily. See [facility] Triage recommendation. Marvat agrees with plan to see provider within 3 days and was hoping for today. Will alert PACT Team at this time for review. Vet agrees to continue to monitor bp and bring a log to appt. Clinical Contact Center Codes Clinic/Location: V1 CWM PHONE CCC RN TXCC Triage Complete Triage Note: Phone Triage 04 Apr 2023 15:55:37 +0000 [facility] Demographics 62 y/o Male Results CC: Blood Pressure Check Software suggested: Within 3 Days Software suggested follow-up location: Clinic, consider [facility] care Values and Measures SBP: 165 mmHg DBP: 97 mmHg Pulse: 71 bpm Duration of CC: 1 Weeks Mean Arterial Pressure: 119.7 Pulse Pressure: 68 Modified Shock Index: 0.59 Alerts 1) Is this patient being treated for diastolic hypertension? 2) Is this patient being treated for systolic hypertension? 3) This Modified Shock Index should be brought to the attention of the provider. MSI in this range has been associated with increased morbidity and mortality. Positive Responses PMH: hypertension Negative Responses Denies: HPI: blurry vision, new Denies: HPI: dizziness, new or worsening Denies: HPI: dyspnea on exertion, worse than usual during normal activities Denies: HPI: headache, severe Denies: HPI: headaches, new or worsening Denies: HPI: high blood pressure associated with use of stimulants Denies: HPI: leg swelling, new or worsening Denies: MEDS: no antihypertensive medications have been prescribed Denies: MEDS: ran out of antihypertensive medication Denies: MEDS: stimulant, nonprescription Denies: MEDS: stopped taking antihypertensive medication Denies: PMH: aneurysm Denies: PMH: clotting disorder Denies: PMH: heart attack Denies: PMH: hypertension, prior hospitalization Denies: PMH: kidney failure, receiving dialysis Denies: PMH: stroke or TIA /es/ SÁNCHEZ SANCHEZ [id number] Signed: 04/04/2023 11:06 Receipt Acknowledged By: 04/04/2023 11:36 /es/ Teja Lutz RN Registered Nurse (RN) 04/04/2023 11:46 /es/ SUZETTE WOO LPN LICENSED PRACTICAL NURSE TEJA LUTZ [facility] Apr 04, 2023 11:06 AM RN PROGRESS NOTE: LOCAL TITLE: CCC: CLINICAL TRIAGE STANDARD TITLE: RN PROGRESS NOTE DATE OF NOTE: APR 04, 2023@11:06:26 ENTRY DATE: APR 04, 2023@11:06:26 AUTHOR: SÁNCHEZ SANCHEZ EXP COSIGNER: URGENCY: STATUS: COMPLETED CCC: CLINICAL TRIAGE Has ADDENDA Patient Demographics Patient Name: LUPILLO HONG Patient Primary Address: [address] [place] [address] Patient Primary Phone: [phone] Patient : 1960 Patient Age: 62 Caller/Recipient Relation to Patient: Self Emergency Contact: KBCAESAR HONG Triage Summary Conducted triage/discussed symptoms Pain Score: 0 (No Pain) Utilized the Triage Tool: Yes Chief Complaint: Blood Pressure Check System WHEN: Within 3 Days Nurse's Recommendation / WHEN: Within 3 Days System WHERE: Clinic Nurse's Recommendation / WHERE: Clinic/[facility] Patient Disposition Patient/Caregiver agrees to plan of care: Yes Nursing Plan and Disposition Referred Patient for In-Person Appt Other course(s) of action Transferred patient to Sched & Admin-Apt Generated msg to PACT/Provider Provided guidance for worsening symptoms: *Caller/Patient* advised to call facilities [place] Clinical Contact Center or seek immediate medical attention for new or worsening symptoms Nurse Summary Nurse Summary: Vet reports HTN with home bp monitoring for the past week or so. He has no symptoms at this time although has noted intermittent lightheadedness, headaches. He states that his most recent BP today was 165/97 with HR 71. When he has a headache caffeine from coffee seems to help however he finds himself then feeling a crash afterwards. Denies taking any known stimulants but does take OTC supplements. Vet reports taking his blood pressure medications as prescribed daily. See [facility] Triage recommendation. Vet agrees with plan to see provider within 3 days and was hoping for today. Will alert PACT Team at this time for review. Vet agrees to continue to monitor bp and bring a log to appt. Clinical Contact Center Codes Clinic/Location: V1 CWM PHONE CCC RN TXCC Triage Complete Triage Note: Phone Triage 04 Apr 2023 15:55:37 +0000 [facility] Demographics 62 y/o Male Results CC: Blood Pressure Check Software suggested: Within 3 Days Software suggested follow-up location: Clinic, consider [facility] care Values and Measures SBP: 165 mmHg DBP: 97 mmHg Pulse: 71 bpm Duration of CC: 1 Weeks Mean Arterial Pressure: 119.7 Pulse Pressure: 68 Modified Shock Index: 0.59 Alerts 1) Is this patient being treated for diastolic hypertension? 2) Is this patient being treated for systolic hypertension? 3) This Modified Shock Index should be brought to the attention of the provider. MSI in this range has been associated with increased morbidity and mortality. Positive Responses PMH: hypertension Negative Responses Denies: HPI: blurry vision, new Denies: HPI: dizziness, new or worsening Denies: HPI: dyspnea on exertion, worse than usual during normal activities Denies: HPI: headache, severe Denies: HPI: headaches, new or worsening Denies: HPI: high blood pressure associated with use of stimulants Denies: HPI: leg swelling, new or worsening Denies: MEDS: no antihypertensive medications have been prescribed Denies: MEDS: ran out of antihypertensive medication Denies: MEDS: stimulant, nonprescription Denies: MEDS: stopped taking antihypertensive medication Denies: PMH: aneurysm Denies: PMH: clotting disorder Denies: PMH: heart attack Denies: PMH: hypertension, prior hospitalization Denies: PMH: kidney failure, receiving dialysis Denies: PMH: stroke or TIA /es/ SÁNCHEZ RITESH SANCHEZ [id number] Signed: 04/04/2023 11:06 Receipt Acknowledged By: 04/04/2023 11:36 /ivone/ Teja Lutz RN Registered Nurse (RN) 04/04/2023 11:46 /ivone/ SUZETTE WOO LPN LICENSED PRACTICAL NURSE 04/04/2023 ADDENDUM STATUS: COMPLETED FYI---Amlodipine & HCTZ was last dispensed 12/14/2022 for 90 days, should have been out of these medications on or around 03/12/2023 if taking as prescribed, please discuss with at todays visit. Thanks /ivone/ Teja Lutz RN Registered Nurse (RN) Signed: 04/04/2023 11:41 Receipt Acknowledged By: * AWAITING SIGNATURE * BOY DELONG DENISE JEAN [facility]
--- OUTSIDE RECORDS SUMMARY | 2024-02-15 02:43 | XMS_ITS | Encounter Summary ---
Author Name [facility] [place] Organization [facility] [place] [facility] [place] Address [address] [place] [address] Care Team Providers Care Accounts Receivable Bookkeeper Name Role Phone BOY DELONG Primary Care [...] RX PRESCRIPT ION HEALT H NEW ENGL [facility] Mar 07, 2020 [facility] [id number] MARGARETH HONG RRYL PATIENT Selected Encounter This section includes the information on record at [place] for the Encounter. Date/Time Encounter Type Encounter Description Reason Provider Source Apr 01, 2023 11:00 AM OFFICE O/P EST LOW 20 MIN PM&RS PHYSICIAN ICD-10-CM M16.11 Unilateral primary osteoarthritis, right hip REESE MCFADDEN E Encounter Template Text not used by [place] Assessments - Encounter Diagnoses This section includes the primary and secondary diagnoses documented for the Encounter. Date/Time Primary/Secondary Diagnosis Diagnosis Name Provider Source Apr 04, 2023 09:40 AM PRIMARY Unilateral primary osteoarthritis, right hip [facility]MDI [facility]ADDEN [facility] [place] [facility] Apr 04, 2023 09:40 AM SECONDARY Bilateral primary osteoarthritis of knee NNAMDI MCFADDEN [facility] [place] [facility] Plan of Treatment: Future Appointments (+ 6 months) and Future Tests (+/- 45 days) The Plan of Treatment section includes future care activities for the patient from [facility] This section includes future appointments and future orders which are active, pending or scheduled. Future Appointments This section includes appointments that were scheduled to occur 6 months from the date of the Encounter, up to a maximum of 20 appointments. The data comes from all [place] treatment facilities. Appointment Date/Time Appointment Type Appointme nt Facility Name Apr 04, 2023 03:00 PM AMBULATORY - MEDICINE [facility] Apr 15, 2023 01:30 PM [facility]ATORY - MEDICINE [facility] Apr 22, 2023 12:30 PM AMBULATORY - NONE [place] [facility] [place] [facility] May 13, 2023 11:00 AM AMBULATORY - NONE [facility] [place] [facility] May 23, 2023 07:30 AM AMBULATORY - REHAB MEDICIN E [place] [facility] [place] [facility] Jun 10, 2023 11:30 AM [facility] Jun 17, 2023 08:00 AM AMBULATORY - PSYCHIATRY [facility] Jun 21, 2023 08:00 AM AMBULATORY - PSYCHIATRY [facility] Jun 24, 2023 11:00 AM AMBULATORY - NONE [place] [facility] [place] [facility] Jun 24, 2023 11:30 AM AMBULATORY - REHAB MEDICIN E [facility] [place] [facility] July 22, 2023 01:00 PM AMBULATORY - PSYCHIATRY [facility] August 03, 2023 08:00 AM AMBULATORY - REHAB [facility]ICIN [facility] [place] August 05, 2023 09:00 AM AMBULATORY - PSYCHIATRY [facility] [place] [facility] August 05, 2023 03:00 PM AMBULATORY - PSYCHIATRY [facility] [place] [facility] Aug 11, 2023 10:40 AM AMBULATORY - MEDICINE [place] [facility] [place] [facility] Aug 19, 2023 10:00 AM AMBULATORY - REHAB MEDICIN [facility] Sep 09, 2023 09:30 AM AMBULATORY - PSYCHIATRY [place] [facility] [place] [facility] Radiology Reports: +/- 30 days of [...] the Encounter. The data comes from all [place] treatment facilities. Date/Time Radiology Report Provider Source Apr 22, 2023 12:32 PM NON-INVAS. CAROTID IMAGING: LUPILLO HONG [id number] -1960 M Exm Date: APR 22, 2023@12:32 Req Phys: DELONG,BOY [place] Loc: CWM/SO/PACT 3 WH (Req'g Loc) Img Loc: ULTRASOUND Service: Unknown (Case [id number] COMPLETE) NON-INVAS. CAROTID IMAGING (US Detailed) CPT:44757 Reason for Study: HTN Clinical History: screen Report Status: Verified Date Reported: APR 24, 2023 Date Verified: APR 24, 2023 Staff Physician E-Sig: Report: NON-INVAS. CAROTID IMAGING HISTORY: Reason for Study: HTN screen. COMPARISON: No prior exams for comparison TECHNIQUE: Duplex imaging of the carotid arteries was performed at the local [place] facility utilizing grayscale, color Doppler and spectral analysis. 31 images were received by the [facility] National Teleradiology Program (NTP) for interpretation. FINDINGS: [...] 100 cm/sec READING PHYSICIAN: Lloyd Sanchez M.D. -[phone] 04/23/2023 19:24 [facility] National Teleradiology Program [phone] (For Medical Practitioner Use Only) Attention Patients / Veterans: If you have questions or concerns about these test results, please contact your ordering provider or primary care team. Primary Diagnostic Code: NO ALERT REQUIRED Primary Interpreting Staff: RADIOLOGY,OUTSIDE SERVICE, Staff Physician / RADIOLOGY,OUTSIDE SERVICE [place] [facility] [place] [facility] Apr 22, 2023 12:31 PM ULTRASOUND AAA SCREENING: LUPILLO HONG [id number] -1960 M Ex Date: APR 22, 2023@12:31 Req Phys: BOY DELONG Loc: CWM/SO/PACT 3 WH (Req'g Loc) Img Loc: ULTRASOUND Service: Unknown (Case [id number] COMPLETE) ULTRASOUND AAA SCREENING (US Detailed) CPT:24125 Reason for Study: HTN Clinical History: screen Report Status: Verified Date Reported: APR 23, 2023 Date Verified: APR 23, 2023 Staff Physician E-Sig: Report: ULTRASOUND AAA SCREENING PROVIDED CLINICAL [...] aneurysm identified. READING PHYSICIAN: Lloyd Sanchez M.D. -[id number] 04/23/2023 16:56 [facility] National Teleradiology Program [phone] (For Medical Practitioner Use Only) Attention Patients / Veterans: If you have questions or concerns about these test results, please contact your ordering provider or primary care team. Primary Diagnostic Code: NO ALERT REQUIRED Primary Interpreting Staff: RADIOLOGY,OUTSIDE SERVICE, Staff Physician / RADIOLOGY,OUTSIDE SERVICE [facility] Encounter Notes: All associated encounter notes This section contains the clinical notes associated to the Encounter. Date/Time Encounter Note(s) Provider Source Apr 01, 2023 02:49 PM PHYSICAL MEDICINE REHAB PHYSICIAN NOTE: LOCAL TITLE: PM&R FOLLOW-UP STANDARD TITLE: PHYSICAL MEDICINE REHAB PHYSICIAN NOTE DATE OF NOTE: APR 01, 2023@14:49 ENTRY DATE: APR 01, 2023@14:49:39 AUTHOR: JAM MCFADDEN EXP COSIGNER: URGENCY: STATUS: COMPLETED PM&R FOLLOW-UP Has ADDENDA APR 01, 2023 GELYLUPILLO SMILEY is a 62 y/o MALE who presents today for follow-up of right intra-articular hip injection. [place] reports that the right hip injection was very helpful. He is not experiencing nearly the same degree of discomfort. His current pain levels are no greater than 4 out of 10 on an analog scale. He feels that he is much more capable. He is able to do his activities without a great deal of discomfort. Even finds that the knee pain due to the fairly advanced osteoarthritis is not quite as bad. His pain levels are moderate and knees. He has had partial temporary relief with corticosteroid injections for less than 2 months. He has pursued physical therapy and additionally has had bracing in the past without a great deal of relief. He went through physical therapy in the past but the majority of this was for his low back issues. We had discussed possible facet injections but he feels that he is doing quite well at current time. Knee pain comes on with walking and stair climbing. He gets an aching sensation in the parapatellar region as well as into the joint line. He occasionally will get some swelling. PMHx as obtained from Chart: Active problems - Computerized Problem List is the source for the followin. Abdominal hernia 2. Ambulatory ECG normal 3. Pain in right hip joint 4. Acute bronchitis 5. Low back pain 6. Foot pain 7. Hyperglycemia 8. Benign hypertension 9. Multiple renal cysts 10. Screening for malignant neoplasm of colon done 11. Pain of bilateral knee regions 12. Nocturia 13. Dyspnea Soc Hx: MARITAL STATUS - NEVER Spontacts FROM Oct TO Oct ALL: Patient has answered NKA MEDS: Reviewed and Reconciled ROS: Constitutional - Denies fever or chills, night sweats, or unexplained weight loss. Head/Eyes/Ears/Neck- Denies headaches, visual changes. Cardiovascular - Denies chest pain/tightness, lower extremity swelling. Respiratory - Denies shortness of breath, or cough. GI - Denies nausea, vomiting, or loss of bowel fx/control. - Denies pelvic pain or loss of bladder function. Musculoskeletal - See HPI. Neuro - Denies numbness or tingling of the extremities. Skin/integuments - Denies rashes, lesions, or skin breakdown in the extremities. All other systems reviewed and are negative. PHYSICAL EXAMINATION: Vitals in chart. GEN: WD, WN. Awake, alert, cooperative with exam. PSYCH: Good eye contact. Appropriate affect and social interaction. MUSCULOSKELETAL EXAM: [place] was seen today via video communication. He was able to arise without a great deal of difficulty. He has an antalgic gait. His lumbar extension did not seem to bother him greatly. Diagnostic Studies: X-rays available through [facility] ASSESSMENT/PLAN: Patient is a 62-year-old [place] with osteoarthritis of the right hip and bilateral knees. Given his only partial improvement with corticosteroid injections, consideration to JASSO injection will be given. He ultimately will likely require total joint replacement but does not feel ready for this at this time. Repeat intra- articular hip injection may be provided if symptoms worsen once again. Ideally injections will be no greater than every 4 months. -Submitted for dural vein to be provided to bilateral knees for moderate to severe osteoarthritis. FOLLOW-UP: Potential risks and side effects of any medication(s) prescribed today was reviewed with . Patient had many excellent questions, which I answered to the best of my ability and to patient's apparent satisfaction. MDM: _20 minutes which includes reviewing records, evaluating patient, documenting in medical record, educating, counseling and coordinating care. Medication Reconciliation: Outpatient: Has the patient been taking medications as documented in the EMLR? YES: The patient has been taking medications as documented in the EMLR. Essential Medication List for Review used to complete this medication reconciliation. INCLUDED IN THIS LIST: Alphabetical list of active outpatient prescriptions dispensed from this VA (local) and dispensed from another [place] or DoD facility (remote) as well as inpatient orders (local, pending and active), local clinic medications, locally documented non-VA medications, and local prescriptions that have or been discontinued in the past 90 days. - All changes in medications, including all non-VA/Herbal/OTC medications were entered into CPRS. - If there were any medications the patient should no longer take, they were discontinued. - The patient/caregiver was instructed to update this list, discard old lists, and take this list to the next appointment, whether with a VA or non-VA provider. Must See [place] (VV) Standard Documentation VV Clinician Resources Only: E911 (Emergency Call Relay Center): [phone] National Veterans Crisis Line - 988 then press #1. PHIL Suicide Coordinator [phone], Ext. [phone]; Back-up Ext. [phone] [address] Police, Valente VILLARREAL [phone] Introduction: Visit is being conducted by [facility]. identified with 2 identifiers: [X] Full Name [X] Date of [ ] VA ID Card Emergency Plan: confirmed and/or provided the following information in case of emergency or technology failure. PATIENT PHONE - PHONE NUMBER [CELLULAR] - NONE FOUND Is patient phone number correct, if not, enter below: 's phone number: LUPILLO HONG [address], [place], [address] [place]'s present location and address for appointment: home [place]'s emergency contact name and phone number: on file reported that location is private and safe: Yes Informed Consent: [place] informed of the risks and benefits of Telehealth video care. has the right to refuse video services. If refuses video visit, a [id number] visit will be scheduled. verbalized consent for this video visit: Yes provided consent for any other persons present for visit: N/A If yes, who and relationship to patient: Secure visit: Visit was locked for security and privacy:Yes /HIEN Vickers Signed: 04/01/2023 15:15 04/06/2023 ADDENDUM STATUS: COMPLETED JASSO used will be Dash /HIEN Vickers Signed: 04/06/2023 12:12 JAM MCFADDEN [facility]
--- OUTSIDE RECORDS SUMMARY | 2024-02-15 02:43 | XMS_ITS ---
Author Name [facility] [place] Organization [facility] [place] Address [address] [place] [address] Care Team Providers Care Director Of Business Operations Name Role Phone BOY DELONG Primary Care [...] RX PRESCRIPT ION HEALT H NEW ENGL [facility] Mar 07, 2020 [facility] [id number] MARGARETH HONG RRYL PATIENT Selected Encounter This section includes the information on record at [place] for the Encounter. Date/Time Encounter Type Encounter Description Reason Provider Source Apr 01, 2023 03:42 PM QNHP OL DIG ASSMT&MGMT 11-20 CLINICAL PHARMACY ICD-10-CM M17.0 Bilateral primary osteoarthritis of knee TEP,[place] SHANKAR IHE Encounter Template Text not used by [place] Assessments - Encounter Diagnoses This section includes the primary and secondary diagnoses documented for the Encounter. Date/Time Primary/Secondary Diagnosis Diagnosis Name Provider Source Apr 01, 2023 03:53 PM PRIMARY Bilateral primary osteoarthritis of knee TEP,[place] SHANKAR [place] [facility] [place] [facility] Plan of Treatment: Future Appointments (+ 6 months) and Future Tests (+/- 45 days) The Plan of Treatment section includes future care activities for the patient [facility] [place] [facility] This section includes future appointments and future orders which are active, pending or scheduled. Future Appointments This section includes appointments that were scheduled to occur 6 months from the date of the Encounter, up to a maximum of 20 appointments. The data comes from all [place] treatment [facility]. Appointment Date/Time Appointment Type Appointme nt Facility Name Apr 04, 2023 03:00 PM [facility]ULATORY [facility] MEDICINE [facility] Apr 15, 2023 01:30 PM AMBULATORY [facility] MEDICINE [facility] Apr 22, 2023 12:30 PM AMBULATORY - NONE [facility] [place] [facility] May 13, 2023 11:00 AM AMBULATORY - NONE [facility] [place] [facility] May 23, 2023 07:30 AM AMBULATORY - REHAB MEDICIN E [facility] [place] [facility] Jun 10, 2023 11:30 AM AMBULATORY - MEDICINE [facility] Jun 17, 2023 08:00 AM AMBULATORY - PSYCHIATRY [facility] Jun 21, 2023 08:00 AM AMBULATORY - PSYCHIATRY [facility] Jun 24, 2023 11:00 AM AMBULATORY - NONE [facility] [place] [facility] Jun 24, 2023 11:30 AM AMBULATORY - REHAB MEDICIN E [facility] [place] [facility] July 22, 2023 01:00 PM AMBULATORY - PSYCHIATRY [facility] August 03, 2023 08:00 AM [facility] August 05, 2023 09:00 AM AMBULATORY - PSYCHIATRY [facility] [place] [facility] August 05, 2023 03:00 PM AMBULATORY - PSYCHIATRY [facility] [place] [facility] Aug 11, 2023 10:40 AM AMBULATORY - MEDICINE [facility] [place] [facility] Aug 19, 2023 10:00 AM AMBULATORY - REHAB MEDICIN [facility] Sep 09, 2023 09:30 AM AMBULATORY - PSYCHIATRY [place] [facility] [place] [facility] Radiology Reports: +/- 30 days of [...] the Encounter. The data comes from all [place] treatment facilities. Date/Time Radiology Report Provider Source Apr 22, 2023 12:32 PM NON-INVAS. CAROTID IMAGING: LUPILLO HONG [id number] -1960 M Exm Date: APR 22, 2023@12:32 Req Phys: BOY DELONG Loc: CWM/SO/PACT 3 WH (Req'g Loc) Img Loc: ULTRASOUND Service: Unknown (Case [id number] COMPLETE) NON-INVAS. CAROTID IMAGING (US Detailed) CPT:78901 Reason for Study: HTN Clinical History: screen Report Status: Verified Date Reported: APR 24, 2023 Date Verified: APR 24, 2023 Forge Tender E-Sig: Report: NON-INVAS. CAROTID IMAGING HISTORY: Reason for Study: HTN screen. COMPARISON: No prior exams for comparison TECHNIQUE: Duplex imaging of the carotid arteries was performed at the local [place] facility utilizing grayscale, color Doppler and spectral analysis. 31 images were received by the [place] National Teleradiology Program (NTP) for interpretation. FINDINGS: [...] 100 cm/sec READING PHYSICIAN: Lloyd Sanchez M.D. -[id number] 04/23/2023 19:24 [facility] National Teleradiology Program [phone] (For Medical Practitioner Use Only) Attention Patients / Veterans: If you have questions or concerns about these test results, please contact your ordering provider or primary care team. Primary Diagnostic Code: NO ALERT REQUIRED Primary Interpreting Staff: RADIOLOGY,OUTSIDE SERVICE, Staff Physician / RADIOLOGY,OUTSIDE SERVICE [facility] Apr 22, 2023 12:31 PM ULTRASOUND AAA SCREENING: JORDAN HONGJoey REIS [id number] -1960 M Ex Date: APR 22, 2023@12:31 Req Phys: BOY DELONG Loc: CWM/SO/PACT 3 WH (Req'g Loc) Img Loc: ULTRASOUND Service: Unknown (Case 459 COMPLETE) ULTRASOUND AAA SCREENING (US Detailed) CPT:77021 Reason for Study: HTN Clinical History: screen Report Status: Verified Date Reported: APR 23, 2023 Date Verified: APR 23, 2023 Forge Tender E-Sig: Report: ULTRASOUND AAA SCREENING PROVIDED CLINICAL [...] aneurysm identified. READING PHYSICIAN: Lloyd Sanchez M.D. -[id number] 04/23/2023 16:56 [facility] National Teleradiology Program [phone] (For Medical Practitioner Use Only) Attention Patients / Veterans: If you have questions or concerns about these test results, please contact your ordering provider or primary care team. Primary Diagnostic Code: NO ALERT REQUIRED Primary Interpreting Staff: RADIOLOGY,OUTSIDE SERVICE, Staff Physician / RADIOLOGY,OUTSIDE SERVICE [facility] [place] Encounter Notes: All associated encounter notes This section contains the clinical notes associated to the Encounter. Date/Time Encounter Note(s) Provider Source Apr 01, 2023 03:43 PM MEDICATION MGT CONSULT: LOCAL TITLE: CONSULT REPORT/NON FORMULARY PADR STANDARD TITLE: MEDICATION MGT CONSULT DATE OF NOTE: APR 01, 2023@15:43 ENTRY DATE: APR 01, 2023@15:43:12 AUTHOR: LEELEE BYRNE EXP COSIGNER: URGENCY: STATUS: COMPLETED The medical record has been reviewed with regard to this restricted drug request. Medication requested: HYALURONATE NA (DUROLANE)20MG/ML SYR 3ML Medication indication: Bilateral Primary Osteoarthritis of Knee Medical history relevant to this request: He has left greater than right knee pain and has had it for several years. He was previously treated with intra-articular injections both of corticosteroid as well as hyaluronic acid. He continues to try to exercise and work on weight reduction. He is lost a total of 7 pounds and is doing quite nicely with that. Currently on diclofenac 1% topical gel. Previously trialed of Celebrex 200mg daily. Had PT in [place] but was mostly for lumbar pain and hip pain on 10/30/2021 but also did some knee ROM. He wears knee braces. He has advanced osteoarthritis bilaterally of the knees and even upwards of 8 years ago was told that knee replacement may be beneficial. He did have hyaluronic acid injections provided 8 years ago and then had an insurance change. The request is approved: - A documented therapeutic failure of the preferred formulary alternative(s) exists - Non-john source (e.g., bacterial fermentation): Durolane and euflexxa are not derived from john sources and can be used in patients with an allergy to john proteins - There is some evidence to suggest that patients with more advanced stages of OA and near complete loss of joint space may be less likely to benefit from this therapy CFU for Durolane: Exclusion Criteria: If the answer to ANY item below is met, then the patient should NOT receive viscosupplementation. [ ] Known hypersensitivity or allergy to hyaluronate or hylan preparations (see supplementary information) [ ] Knee joint infection, skin disease or infection in the area of the injection site Inclusion Criteria: The answers to all of the following must be fulfilled in order to meet criteria. [x] Documented symptomatic (pain/stiffness) OA of the knee which interferes with functional activities (e.g. ambulation, prolonged standing, etc.) and/or is associated with significant pain. [x] Adequate trial (e.g. 2 to 3 months) of non-pharmacologic measures, as appropriate, (e.g. cane/crutches, bracing/orthotics, weight loss, physical therapy/exercise) has not resulted in adequate improvement in pain/function. [x] Therapeutic trial of at least 3 analgesics (e.g. acetaminophen, topical capsaicin or topical NSAIDs, oral NSAIDs or duloxetine) has not resulted in adequate improvement in pain/function; or patient is unable to tolerate or is not a candidate for NSAIDs or other oral therapies. [x] Patient and/or provider have elected to continue conservative (nonsurgical) treatment for OA. /ivone/ LEELEE BYRNE, PHARM.D CLINICAL PHARMACIST PRACTITIONER Signed: 04/01/2023 15:53 LEELEE BYRNE [facility]L [facility] [place]
--- OUTSIDE RECORDS SUMMARY | 2024-02-15 02:44 | XMS_ITS ---
Author Name [facility] [place] Organization [facility] [place] [facility] [place] Address [address] [place] [address] Care Team Providers Care Manager Therapy Name Role Phone BOY DELONG Primary Care [...] RX PRESCRIPT ION HEALT H NEW ENGL [facility] Mar 07, 2020 [facility] [id number] MARGARETH HONG RRYL PATIENT Selected Encounter This section includes the information on record at [place] for the Encounter. Date/Time Encounter Type Encounter Description Reason Pro vider Source Apr 15, 2023 03:36 PM Outpatient Encounter PRIMARY CARE/MEDICINE IHE Encounter Template Text not used by [place] Plan of Treatment: Future Appointments (+ 6 months) and Future Tests (+/- 45 days) The Plan of Treatment section includes future care activities for the patient from all [place] treatmentfacilities. This section includes future appointments and future orders which are active, pending or scheduled. Future Appointments This section includes appointments that were scheduled to occur 6 months from the date of the Encounter, up to a maximum of 20 appointments. The data comes from all [place] treatment facilities. Appointment Date/Time Appointment Type Appointme nt Facility Name Apr 22, 2023 12:30 PM AMBULATORY - NONE [facility] [facility] May 13, 2023 11:00 AM AMBULATORY - NONE [facility] [place] [facility] May 23, 2023 07:30 AM AMBULATORY - REHAB MEDICIN E [facility] [place] [facility] Jun 10, 2023 11:30 AM AMBULATORY - MEDICINE [facility] Jun 17, 2023 08:00 AM AMBULATORY - PSYCHIATRY [facility] Jun 21, 2023 08:00 AM AMBULATORY - PSYCHIATRY [facility] Jun 24, 2023 11:00 AM AMBULATORY - NONE [facility] [place] [facility] Jun 24, 2023 11:30 AM AMBULATORY - REHAB MEDICIN E [facility] [place] [facility] July 22, 2023 01:00 PM AMBULATORY - PSYCHIATRY [facility] August 03, 2023 08:00 AM AMBULATORY - REHAB MEDICIN E [place] August 05, 2023 09:00 AM AMBULATORY - [facility] [place] [facility] August 05, 2023 03:00 PM AMBULATORY - PS[facility]IATRY [facility] [place] [facility] Aug 11, 2023 10:40 AM AM[facility]UL[facility] [place] [facility] Aug 19, 2023 10:00 AM AMBULATORY - REHAB [facility]IN [facility] [place] Sep 09, 2023 09:30 AM AMBULATORY - PS[facility]IATRY [facility] [place] [facility] Oct 14, 2023 09:30 AM AMBULATORY - PS[facility]CHIATRY [facility] [place] [facility] Radiology Reports: +/- 30 days of [...] the Encounter. The data comes from all [place] treatment [facility]. Date/Time Radiology Report Provider Source Apr 22, 2023 12:32 PM NON-INVAS. CAROTID IMAGING: LUPILLO HONG [id number] -1960 M Exm Date: APR 22, 2023@12:32 Req Phys: BOY DELONG Loc: CWM/SO/PACT 3 WH (Req'g Loc) Img Loc: ULTRASOUND Service: Unknown (Case [id number] COMPLETE) NON-INVAS. CAROTID IMAGING (US Detailed) CPT:87975 Reason for Study: HTN Clinical History: screen Report Status: Verified Date Reported: APR 24, 2023 Date Verified: APR 24, 2023 Bow[place] Floor Manager E-Sig: Report: NON-INVAS. CAROTID IMAGING HISTORY: Reason for Study: HTN screen. COMPARISON: No prior exams for comparison TECHNIQUE: Duplex imaging of the carotid arteries was performed at the local [place] facility utilizing grayscale, color Doppler and spectral analysis. 31 images were received by the [place] National Teleradiology Program (NTP) for interpretation. FINDINGS: [...] 100 cm/sec READING PHYSICIAN: Lloyd Sanchez M.D. -[id number] 04/23/2023 19:24 [facility] National Teleradiology Program [phone] (For Medical Practitioner Use Only) Attention Patients / Veterans: If you have questions or concerns about these test results, please contact your ordering provider or primary care team. Primary Diagnostic Code: NO ALERT REQUIRED Primary Interpreting Staff: RADIOLOGY,OUTSIDE SERVICE, Staff Physician / RADIOLOGY,OUTSIDE SERVICE [place] [facility] [place] [facility] Apr 22, 2023 12:31 PM ULTRASOUND AAA SCREENING: LUPILLO HONG [id number] -1960 M Ex Date: APR 22, 2023@12:31 Req Phys: BOY DELONG Loc: CWM/SO/PACT 3 WH (Req'g Loc) Img Loc: ULTRASOUND Service: Unknown (Case [id number] COMPLETE) ULTRASOUND AAA SCREENING (US Detailed) CPT:14157 Reason for Study: HTN Clinical History: screen Report Status: Verified Date Reported: APR 23, 2023 Date Verified: APR 23, 2023 [place] Floor Manager E-Sig: Report: ULTRASOUND AAA SCREENING PROVIDED CLINICAL [...] aneurysm identified. READING PHYSICIAN: Lloyd Sanchez M.D. -[id number] 04/23/2023 16:56 [facility] National Teleradiology Program [phone] (For Medical Practitioner Use Only) Attention Patients / Veterans: If you have questions or concerns about these test results, please contact your ordering provider or primary care team. Primary Diagnostic Code: NO ALERT REQUIRED Primary Interpreting Staff: RADIOLOGY,OUTSIDE SERVICE, Staff Physician / RADIOLOGY,OUTSIDE SERVICE [facility] Encounter Notes: All associated encounter notes This section contains the clinical notes associated to the Encounter. Date/Time Encounter Note(s) Provider Source Apr 15, 2023 03:36 PM CLERICAL NOTE: LOCAL TITLE: APPOINTMENT NO SHOW STANDARD TITLE: CLERICAL NOTE DATE OF NOTE: APR 15, 2023@15:36 ENTRY DATE: APR 15, 2023@15:36:43 AUTHOR: ANITA MANUEL COSIGNER: URGENCY: STATUS: COMPLETED Patient Name: LUPILLO HONG Patient SSN: [id number] Date and time of Appointment No show : 04/15/23 15:36 PATIENT PHONE - PHONE NUMBER [CELLULAR] - NONE FOUND Patient's medical record was reviewed. Follow-up actions were determined and initiated: Please check/complete as applies: [X]Telephoned Directly [ ]Re-scheduled for next available appt [X]Sent a N0-show letter ( must call for appointment) [ ]Other (Emergent/Overbook, etc.): Additional Comments: NO SHOW FOR NURSING APPT BP check Future Clinic Visits 04/22/2023 12:30 CWM/NO/ULTRASOUND 04/22/2023 13:00 CWM-V01 [facility] ECHO SFT PT A 05/12/2023 15:00 CWM/NO/MEDICAL REHAB B 06/10/2023 11:30 CWM/SO/PACT 3 WH 07/08/2023 11:00 CWM/SO/PACT 3 WH 09/02/2023 09:00 NHM/OPTOMETRY/BORASKI /es/ JT MANUEL [employer] Photograph Signed: 04/15/2023 15:37 JT MANUEL [place]
--- OUTSIDE RECORDS SUMMARY | 2024-02-15 02:44 | XMS_ITS | Encounter Summary ---
Author Name [facility] [place] Organization [facility] [place] Address [address] [place] [address] Care Team Providers Care Clothes Ironer Name Role Phone BOY DELONG Primary Care [...] RX PRESCRIPT ION HEALT H NEW ENGL [facility] Mar 07, 2020 [facility] [id number] MARGARETH HONG RRYL PATIENT Selected Encounter This section includes the information on record at [place] for the Encounter. Date/Time Encounter Type Encounter Description Reason Pro vider Source May 23, 2023 07:58 AM Outpatient Encounter EVENT (HISTORICAL) IHE Encounter Template Text not used by [facility] Plan of Treatment: Future Appointments (+ 6 [...] 20 appointments. The data comes from all [place] treatment facilities. Appointment Date/Time Appointment Type Appointme nt Facility Name Jun 10, 2023 11:30 AM AMBULATORY - MEDICINE [facility] Jun 17, 2023 08:00 AM AMBULATORY - PSYCHIATRY [facility] Jun 21, 2023 08:00 AM AMBULATORY - PSYCHIATRY [facility] Jun 24, 2023 11:00 AM AMBULATORY - NONE [facility] [place] [facility] Jun 24, 2023 11:30 AM AMBULATORY - REHAB MEDICIN E [facility] [place] [facility] July 22, 2023 01:00 PM AMBULATORY - PSYCHIATRY [facility] August 03, 2023 08:00 AM AMBULATORY - REHAB MEDICIN [place] August 05, 2023 09:00 AM AMBULATORY - [facility]AT[facility] [place] [facility] August 05, 2023 03:00 PM AMBULATORY - PS[facility]CHIATRY [facility] [place] [facility] Aug 11, 2023 10:40 AM AMBULATORY [facility]IC[facility] [place] [facility] Aug 19, 2023 10:00 AM AMBULATORY - REHAB MEDICIN E [place] Sep 09, 2023 09:30 AM AMBULATORY - PS[facility]IATRY [facility] [place] [facility] Oct 14, 2023 09:30 AM AMBULATORY - PS[facility]CHIATRY [facility] [place] [facility] Oct 28, 2023 10:00 AM AMBULATORY - PS[facility]CHIATRY [facility] [place] [facility] Nov 11, 2023 11:00 AM AMBULATORY - PS[facility]CHIATRY [facility] [place] [facility] Nov 14, 2023 03:00 PM AMBULATORY [facility] MEDICINE [facility] [place] [facility] Nov 17, 2023 08:00 AM AMBULATORY - MEDICINE [facility] [place] [facility] Lab Results: +/- 30 days of the encounter This section includes the Chemistry and Hematology Lab Results on record with [place] for the patient. Radiology Reports and Pathology Reports are provided separately, in subsequent sections. Lab Results This section contains the Chemistry/Hematology Results that were resulted 30 days before or 30 daysafter the date of the Encounter. Date/Time Source Result Type Result - Unit Interpretation Reference Range Comment Jun 09, 2023 08:32 AM [place] VITAMIN D (25-OH) Specimen Type: SERUM No comment entered. Ordering Provider: BOY DELONG Report Released Date/Time: Dec 14, 2022 10:56 AM Reporting Lab: [facility] [id number] [address] Performing Lab: [address] [address] VITAMIN D (25-OH) 21 ng/mL 20-50 Jun 09, 2023 08:32 AM [place] URINALYSIS Specimen Type: URINE Comment: If Glucose = >500 and Ketones are positive, please alert the Physician. Ordering Provider: BOY DELONG Report Released Date/Time: Dec 14, 2022 10:56 AM Reporting Lab: [address] [address] Performing Lab: [address] [address] UA COLOR Light-Yellow Yellow UA APPEARANCE Clear Clear UA GLUCOSE NEGATIVE mg/dL Negative UA KETONES NEGATIVE mg/dL Negative UA BLOOD NEGATIVE mg/dL Negative UA PROTEIN NEGATIVE mg/dL Negative UA NITRITE NEGATIVE mg/dL Negative UA BILIRUBIN NEGATIVE mg/dL Negative UA SPECIFIC GRAVITY 1.015 L 1.016-1.02 2 UA pH 5.5 5.0-9.0 UA UROBILINOGEN <2.0 mg/dL <2.0 UA LEUKOCYTE NEGATIVE Negative Jun 09, 2023 08:32 AM [place] VITAMIN B12 Specimen Type: SERUM No comment entered. Ordering Provider: BOY DELONG Report Released Date/Time: Dec 14, 2022 10:56 AM Reporting Lab: [address] [address] Performing Lab: [address] [address] VITAMIN B12 580 pg/mL 200-900 Jun 09, 2023 08:32 AM [place] FERRITIN Specimen Type: SERUM No comment entered. Ordering Provider: BOY DELONG Report Released Date/Time: Dec 14, 2022 10:56 AM Reporting Lab: [address] [address] Performing Lab: [address] [address] FERRITIN 199 ng/mL 20-300 Jun 09, 2023 08:32 AM [place] CBC AND DIFF (AUTO) Specimen Type: BLOOD No comment entered. Ordering Provider: BOY DELONG Report Released Date/Time: Dec 14, 2022 10:56 AM Reporting Lab: [address] [address] Performing Lab: [address] [address] WBC 4.38 10*3/uL L 4.50-11.00 RBC 5.42 10*6/uL 4.23-5.66 HGB 15.0 g/dL 12.8-17 HCT 44.9 39.2-50.4 MCV 82.8 fL 82-99 MCHC 33.4 g/dL 30.8-35.1 PLT 265 10*3/uL 140-360 RDW-CV 12.8 12.0-16.0 Butts, Abs 0.37 10*3/uL 0.30-1.10 MCH 27.7 pg 26.2-32.6 Neut % 56.0 43.7-75.8 Lymph % 31.7 14.0-42.3 Butts % 8.4 5.1-13.7 Eos % 3.0 0.4-6.8 Baso % 0.7 0.1-2.0 Neut, Abs 2.45 10*3/uL 2.20-7.60 Lymph, Abs 1.39 10*3/uL 1.00-3.20 Eos, Abs 0.13 10*3/uL 0.03-0.44 Baso, Abs 0.03 10*3/uL 0.01-0.13 Immature Gran % 0.2 0.0-0.7 Immature Gran, Abs 0.01 10*3/uL 0.00-0.06 Jun 09, 2023 08:32 AM [place] RETICULOCYTES Specimen Type: BLOOD No comment entered. Ordering Provider: BOY DELONG Report Released Date/Time: Dec 14, 2022 10:56 AM Reporting Lab: [facility] [address] [address] Performing Lab: [address] [address] RETIC % 1.1 0.6-2.0 RETIC, ABS 61.8 10*3/uL 30.0-90.0 Ret-He % 31.3 27.9-42.0 Jun 09, 2023 08:32 AM [place] HEMOGLOBIN A1C PANEL Specimen Type: BLOOD Comment: Values obtained from A1C measurements can vary. For atypical A1C assays, a reported value of 7.0 could actually be between 6.72 and 7.28 if measured by a reference method. A reported value of 9.0 could actually be between 8.73 and 9.27. Ref: http://www.ngs p.org/CAPdata. asp Ordering Provider: BOY DELONG Report Released Date/Time: Dec 14, 2022 10:56 AM Reporting Lab: [facility] [place] [address] [address] Performing Lab: [facility] [address] HEMOGLOBIN A1C 5.8 H 4.0-5.6 Jun 09, 2023 08:32 AM [place] TSH Specimen Type: SERUM No comment entered. Ordering Provider: BOY DELONG Report Released Date/Time: Dec 14, 2022 10:56 AM Reporting Lab: [place] [facility] [place] [address] [address] Performing Lab: [facility] [address] [address] TSH 2.27 u[IU]/mL 0.35-5.00 Jun 09, 2023 08:32 AM [place] PSA Specimen Type: SERUM No comment entered. Ordering Provider: BOY DELONG Report Released Date/Time: Dec 14, 2022 10:56 AM Reporting Lab: [facility] [place] [address] [address] Performing Lab: [facility] [address] PSA 2.13 ng/mL 0.00-4.00 Jun 09, 2023 08:32 AM [place] BASIC METABOLIC PANEL (fasting) Specime n Type: SERUM No comment entered. Ordering Provider: BOY DELONG Report Released Date/Time: Dec 14, 2022 10:56 AM Reporting Lab: [facility] [place] [address] [address] Performing Lab: [facility] [address] [facility] [address] UREA NITROGEN 15 mg/dL 7-25 GLUCOSE 113 mg/dL H 65-100 SODIUM 141 mmol/L 135-145 POTASSIUM 3.9 mmol/L 3.5-5.0 CHLORIDE 108 mmol/L 100-110 CO2 24 meq/L 20-30 CREATININE, Serum 1.17 mg/dL 0.50-1.40 eGFR(CKD-EPI 2020) 71 mL/min >60 Jun 09, 2023 08:32 AM [place] LIVER FUNCTION Specimen Type: SERUM No comment entered. Ordering Provider: BOY DELONG Report Released Date/Time: Dec 14, 2022 10:56 AM Reporting Lab: [address] [address] Performing Lab: [address] [address] PROTEIN,TOTAL 6.9 g/dL 6.0-8.3 ALBUMIN 4.0 g/dL 3.5-5.0 ALKALINE PHOSPHATASE 66 U/L 40-150 AST 19 U/L 5-34 ALT 27 U/L BILIRUBIN, TOTAL 0.5 mg/dL 0.2-1.2 Jun 09, 2023 08:32 AM [place] LIPID PANEL FASTING Specimen Type: SERUM No comment entered. Ordering Provider: BOY DELONG Report Released Date/Time: Dec 14, 2022 10:56 AM Reporting Lab: [address] [address] Performing Lab: [address] [address] CHOLESTEROL 173 mg/dL TRIGLYCERIDE 81 mg/dL 0-150 LDL calculated 118 mg/dL 0-129 CHOL/HDL 4.4 HDL CHOLESTEROL 39 mg/dL L 40-60 Jun 09, 2023 08:32 AM [place] CALCIUM Specimen Type: SERUM No comment entered. Ordering Provider: BOY DELONG Report Released Date/Time: Dec 14, 2022 10:56 AM Reporting Lab: [address] [address] Performing Lab: [address] [place] [address] CALCIUM 8.8 mg/dL 8.5-10.2 Jun 09, 2023 08:32 AM [place] URIC ACID Specimen Type: SERUM No comment entered. Ordering Provider: BOY DELONG Report Released Date/Time: Dec 14, 2022 10:56 AM Reporting Lab: [facility] [address] [facility] [address] Performing Lab: [address] [address] URIC ACID 5.6 mg/dL 3.5-7.2 Vital Signs: All taken on the encounter date This section contains inpatient and outpatient Vital Signs collected on the date of the Encounter. Date/Time Temperature Pulse Blood Pressure Respiratory Rate SP02 Pain Height Weight Body Mass Index Source May 23, 2023 07:41 AM 130/80 5 [facility]
--- OUTSIDE RECORDS SUMMARY | 2024-02-15 02:44 | XMS_ITS | Encounter Summary ---
Author Name [facility] [place] [facility] [place] [facility] [facility] [place] Address [address] [place] [address] Care Team Providers Care Adjunct Instructor In Economics Name Role Phone BOY DELONG Primary Care [...] OPTUM RX PRESCRIPT ION [facility]ALT [facility] Mar 07, 2020 [facility] [id number] MARGARETH HONG RRYL PATIENT Selected Encounter This section includes the information on record at [place] for the Encounter. Date/Time Encounter Type Encounter Description Reason Provider Source May 13, 2023 11:00 AM TTE W/DOPPLER COMPLETE CARDIAC ECHO ICD-10-CM I10 Essential (primary) hypertension SJ YOON Rosibel Encounter Template Text not used by [place] Assessments - Encounter Diagnoses This section includes the primary and secondary diagnoses documented for the Encounter. Date/Time Primary/Secondary Diagnosis Diagnosis Name Provider Source May 13, 2023 11:25 AM PRIMARY Essential (primary) hypertension [facility] Plan of Treatment: Future Appointments (+ 6 months) and Future Tests (+/- 45 days) The Plan of Treatment section includes future care activities for the [facility] [place] [facility] This section includes future appointments and future orders which are active, pending or scheduled. Future Appointments This section includes appointments that were scheduled to occur 6 months from the date of the Encounter, up to a maximum of 20 appointments. The data comes from all [place] treatment facilities. Appointment Date/Time Appointment Type Appointme nt Facility Name May 23, 2023 07:30 AM AMBULATORY - REHAB MEDICIN E [facility] Jun 10, 2023 11:30 AM AMBULATORY - MEDICINE [facility] Jun 17, 2023 08:00 AM AMBULATORY - PSYCHIATRY [facility] Jun 21, 2023 08:00 AM AMBULATORY - PSYCHIATRY [facility] Jun 24, 2023 11:00 AM AMBULATORY - NONE [facility] Jun 24, 2023 11:30 AM AMBULATORY - REHAB MEDICIN E [facility] July 22, 2023 01:00 PM AMBULATORY - PSYCHIATRY [facility] August 03, 2023 08:00 AM AMBULATORY - REHAB MEDICIN [facility] August 05, 2023 09:00 AM AMBULATORY - PS[facility]IATRY [facility] August 05, 2023 03:00 PM AMBULATORY - PS[facility]CHIATRY [facility] Aug 11, 2023 10:40 AM AM[facility]UL[facility]ORY [facility] Aug 19, 2023 10:00 AM AMBULATORY - REHAB MEDICIN [facility] Sep 09, 2023 09:30 AM AMBULATORY - PS[facility]CHIATRY [facility] Oct 14, 2023 09:30 AM AMBULATORY - PS[facility]CHIATRY [facility] Oct 28, 2023 10:00 AM AMBULATORY - PS[facility]IATRY [facility] Nov 11, 2023 11:00 AM AMBULATORY - PSYCHIATRY [facility] Lab Results: +/- 30 days of the encounter This section includes the Chemistry and Hematology Lab Results on record with [place] for the patient. Radiology Reports and Pathology Reports are provided separately, in subsequent sections. Lab Results This section contains the Chemistry/Hematology Results that were resulted 30 days before or 30 daysafter the date of the Encounter. Date/Time Source Result Type Result - Unit Interpretation Reference Range Comment Jun 09, 2023 08:32 AM [facility] VITAMIN D (25-OH) Specimen Type: SERUM No comment entered. Ordering Provider: BOY DELONG Report Released Date/Time: Dec 14, 2022 10:56 AM Reporting [facility] [address] [address] Performing Lab: [address] [address] VITAMIN D (25-OH) 21 ng/mL 20-50 Jun 09, 2023 08:32 AM [facility] VITAMIN B12 Specimen Type: SERUM No comment entered. Ordering Provider: BOY DELONG Report Released Date/Time: Dec 14, 2022 10:56 AM Reporting Lab: [address] [address] Performing Lab: [address] [address] VITAMIN B12 580 pg/mL 200-900 Jun 09, 2023 08:32 AM [facility] URINALYSIS Specimen Type: URINE Comment: If Glucose = >500 and Ketones are positive, please alert the Physician. Ordering Provider: BOY DELONG Report Released Date/Time: Dec 14, 2022 10:56 AM Reporting Lab: [address] [address] Performing Lab: [address] [address] UA COLOR Light-Yellow Yellow UA APPEARANCE Clear Clear UA GLUCOSE NEGATIVE mg/dL Negative UA KETONES NEGATIVE mg/dL Negative UA BLOOD NEGATIVE mg/dL Negative UA PROTEIN NEGATIVE mg/dL Negative UA NITRITE NEGATIVE mg/dL Negative UA BILIRUBIN NEGATIVE mg/dL Negative UA SPECIFIC GRAVITY 1.015 L 1.016-1.02 2 UA pH 5.5 5.0-9.0 UA UROBILINOGEN <2.0 mg/dL <2.0 UA LEUKOCYTE NEGATIVE Negative Jun 09, 2023 08:32 AM [facility] FERRITIN Specimen Type: SERUM No comment entered. Ordering Provider: BOY DELONG Report Released Date/Time: Dec 14, 2022 10:56 AM Reporting Lab: [address] [address] Performing Lab: [address] [address] FERRITIN 199 ng/mL 20-300 Jun 09, 2023 08:32 AM [facility] CBC AND DIFF (AUTO) Specimen Type: BLOOD No comment entered. Ordering Provider: BOY DELONG Report Released Date/Time: Dec 14, 2022 10:56 AM Reporting Lab: [address] [address] Performing Lab: [address] [address] WBC 4.38 10*3/uL L 4.50-11.00 RBC 5.42 10*6/uL 4.23-5.66 HGB 15.0 g/dL 12.8-17 HCT 44.9 39.2-50.4 MCV 82.8 fL 82-99 MCHC 33.4 g/dL 30.8-35.1 PLT 265 10*3/uL 140-360 RDW-CV 12.8 12.0-16.0 [place], Abs 0.37 10*3/uL 0.30-1.10 MCH 27.7 pg 26.2-32.6 Neut % 56.0 43.7-75.8 Lymph % 31.7 14.0-42.3 [place] % 8.4 5.1-13.7 Eos % 3.0 0.4-6.8 Baso % 0.7 0.1-2.0 Neut, Abs 2.45 10*3/uL 2.20-7.60 Lymph, Abs 1.39 10*3/uL 1.00-3.20 Eos, Abs 0.13 10*3/uL 0.03-0.44 Baso, Abs 0.03 10*3/uL 0.01-0.13 Immature Gran % 0.2 0.0-0.7 Immature Gran, Abs 0.01 10*3/uL 0.00-0.06 Jun 09, 2023 08:32 AM [facility] RETICULOCYTES Specimen Type: BLOOD No comment entered. Ordering Provider: BOY DELONG Report Released Date/Time: Dec 14, 2022 10:56 AM Reporting Lab: [facility] [address] Performing Lab: [facility] [address] [address] RETIC % 1.1 0.6-2.0 RETIC, ABS 61.8 10*3/uL 30.0-90.0 Ret-He % 31.3 27.9-42.0 Jun 09, 2023 08:32 AM [facility] HEMOGLOBIN A1C PANEL Specimen Type: BLOOD Comment: [...] Dec 14, 2022 10:56 AM Reporting Lab: [facility] [address] [address] Performing Lab: [facility] [address] [address] HEMOGLOBIN A1C 5.8 H 4.0-5.6 Jun 09, 2023 08:32 AM [facility] PSA Specimen Type: SERUM No comment entered. Ordering Provider: BOY DELONG Report Released Date/Time: Dec 14, 2022 10:56 AM Reporting Lab: [facility] [address] [address] Performing Lab: [facility] [address] [address] PSA 2.13 ng/mL 0.00-4.00 Jun 09, 2023 08:32 AM [facility] TSH Specimen Type: SERUM No comment entered. Ordering Provider: BOY DELONG Report Released Date/Time: Dec 14, 2022 10:56 AM Reporting Lab: [facility] [address] [address] Performing Lab: [facility] [address] [address] TSH 2.27 u[IU]/mL 0.35-5.00 Jun 09, 2023 08:32 AM [facility] BASIC METABOLIC PANEL (fasting) Specime n Type: SERUM No comment entered. Ordering Provider: BOY DELONG Report Released Date/Time: Dec 14, 2022 10:56 AM Reporting Lab: [facility] [address] [facility] [address] Performing Lab: [address] [address] UREA NITROGEN 15 mg/dL 7-25 GLUCOSE 113 mg/dL H 65-100 SODIUM 141 mmol/L 135-145 POTASSIUM 3.9 mmol/L 3.5-5.0 CHLORIDE 108 mmol/L 100-110 CO2 24 meq/L 20-30 CREATININE, Serum 1.17 mg/dL 0.50-1.40 eGFR(CKD-EPI 2020) 71 mL/min >60 Jun 09, 2023 08:32 AM [facility] LIVER FUNCTION Specimen Type: SERUM No comment entered. Ordering Provider: BOY DELONG Report Released Date/Time: Dec 14, 2022 10:56 AM Reporting Lab: [address] [address] Performing Lab: [address] [address] PROTEIN,TOTAL 6.9 g/dL 6.0-8.3 ALBUMIN 4.0 g/dL 3.5-5.0 ALKALINE PHOSPHATASE 66 U/L 40-150 AST 19 U/L 5-34 ALT 27 U/L BILIRUBIN, TOTAL 0.5 mg/dL 0.2-1.2 Jun 09, 2023 08:32 AM [facility] LIPID PANEL FASTING Specimen Type: SERUM No comment entered. Ordering Provider: BOY DELONG Report Released Date/Time: Dec 14, 2022 10:56 AM Reporting Lab: [facility] [address] [facility] [address] Performing Lab: [address] [address] CHOLESTEROL 173 mg/dL TRIGLYCERIDE 81 mg/dL 0-150 LDL calculated 118 mg/dL 0-129 CHOL/HDL 4.4 HDL CHOLESTEROL 39 mg/dL L 40-60 Jun 09, 2023 08:32 AM [facility] CALCIUM Specimen Type: SERUM No comment entered. Ordering Provider: BOY DELONG Report Released Date/Time: Dec 14, 2022 10:56 AM Reporting Lab: [address] [address] Performing Lab: [address] [address] CALCIUM 8.8 mg/dL 8.5-10.2 Jun 09, 2023 08:32 AM [facility] URIC ACID Specimen Type: SERUM No comment entered. Ordering Provider: BOY DELONG Report Released Date/Time: Dec 14, 2022 10:56 AM Reporting Lab: [address] [address] Performing Lab: [address] [address] URIC ACID 5.6 mg/dL 3.5-7.2 Radiology Reports: +/- 30 days of the [...] the Encounter. The data comes from all [facility] facilities. Date/Time Radiology Report Provider Source Apr 22, 2023 12:32 PM NON-INVAS. CAROTID IMAGING: GELYLUPILLO [id number] -1960 M Exm Date: APR 22, 2023@12:32 Req Phys: BOY DELONG Loc: CWM/SO/PACT 3 WH (Req'g Loc) Img Loc: ULTRASOUND Service: Unknown (Case [id number] COMPLETE) NON-INVAS. CAROTID IMAGING (US Detailed) CPT:77167 Reason for Study: HTN Clinical History: screen Report Status: Verified Date Reported: APR 24, 2023 Date Verified: APR 24, 2023 Procurement Specialist E-Sig: Report: NON-INVAS. CAROTID IMAGING HISTORY: Reason for Study: HTN screen. COMPARISON: No prior exams for comparison TECHNIQUE: Duplex imaging of the carotid arteries was performed at the local [place] facility utilizing grayscale, color Doppler and spectral analysis. 31 images were received by the [place] [facility] ([facility]) for interpretation. FINDINGS: [...] 100 cm/sec READING PHYSICIAN: Lloyd Sanchez M.D. -[id number] 04/23/2023 19:24 [facility] National Teleradiology Program [phone] (For Medical Practitioner Use Only) Attention Patients / Veterans: If you have questions or concerns about these test results, please contact your ordering provider or primary care team. Primary Diagnostic Code: NO ALERT REQUIRED Primary Interpreting Staff: RADIOLOGY,OUTSIDE SERVICE, Staff Physician / RADIOLOGY,OUTSIDE SERVICE [facility] Apr 22, 2023 12:31 PM ULTRASOUND AAA SCREENING: LUPILLO HONG [id number] -1960 M Exm Date: APR 22, 2023@12:31 Req Phys: BOY DELONG Loc: CWM/SO/PACT 3 WH (Req'g Loc) Img Loc: ULTRASOUND Service: Unknown (Case [id number] COMPLETE) ULTRASOUND AAA SCREENING (US Detailed) CPT:02073 Reason for Study: HTN Clinical History: screen Report Status: Verified Date Reported: APR 23, 2023 Date Verified: APR 23, 2023 Procurement Specialist E-Sig: Report: ULTRASOUND AAA SCREENING PROVIDED CLINICAL [...] aneurysm identified. READING PHYSICIAN: Lloyd Sanchez M.D. -[id number] 04/23/2023 16:56 [facility] National Teleradiology Program [phone] (For Medical Practitioner Use Only) Attention Patients / Veterans: If you have questions or concerns about these test results, please contact your ordering provider or primary care team. Primary Diagnostic Code: NO ALERT REQUIRED Primary Interpreting Staff: RADIOLOGY,OUTSIDE SERVICE, Staff Physician / RADIOLOGY,OUTSIDE SERVICE [facility] Encounter Notes: All associated encounter notes This section contains the clinical notes associated to the Encounter. Date/Time Encounter Note(s) Provider Source May 16, 2023 02:48 PM CARDIOLOGY PROCEDURE NOTE: LOCAL TITLE: CP CARDIOLOGY ECHO STANDARD TITLE: CARDIOLOGY PROCEDURE NOTE DATE OF NOTE: MAY 16, 2023@14:48:55 ENTRY DATE: MAY 16, 2023@14:48:55 AUTHOR: CLINICAL,DEVICE PRO EXP COSIGNER: URGENCY: STATUS: COMPLETED PROCEDURE SUMMARY CODE: Machine Resulted DATE/TIME PERFORMED: MAY 13, 2023@10:36:2 DOCUMENT IN VISTA IMAGING SEE FULL REPORT IN VISTA IMAGING SIGNATURE NOT REQUIRED SEE SIGNATURE IN VISTA IMAGING (XCELERA (ADULT)) AUTO-INSTRUMENT DIAGNOSIS Procedure: Interop Interop Administrative Closure: 05/16/2023 by: Clinical,Device Proxy Service CLINICAL,DEVICE PROXY SERVICE [facility] May 13, 2023 11:24 AM CARDIOLOGY DIAGNOSTIC STUDY NOTE: LOCAL TITLE: ECHOCARDIOGRAM REPORT STANDARD TITLE: CARDIOLOGY DIAGNOSTIC STUDY NOTE DATE OF NOTE: MAY 13, 2023@11:24 ENTRY DATE: MAY 13, 2023@11:24:58 AUTHOR: ABDIFATAH YOON EXP COSIGNER: URGENCY: STATUS: COMPLETED DATE ECHOCARDIOGRAM PERFOMED: May ECHOCARDIOLOGY UNDERWRITING SALES REPRESENTATIVE: HALEY Ruelas RCS Procedure was performed without incident. The Study transmitted to [facility] via DigitalChalk system for interpretation by soft sugar operator head. When interpretation is complete, results can be found under [facility]. /ivone/ TAMANNA ALLEN Signed: 05/13/2023 11:25 ABDIFATAH YOON [facility]
--- OUTSIDE RECORDS SUMMARY | 2024-02-15 02:44 | XMS_ITS | Encounter Summary ---
Author Name [facility] [place] [facility] [place] Address [address] [place] [id number] Care Team Providers Care Road Production General Manager Name Role Phone BOY DELONG Primary Care [...] [place] RX PRESCRIPT ION HEALT H [facility] Mar 07, 2020 [facility] [id number] MARGARETH HONG RRYL PATIENT Selected Encounter This section includes the information on record at [place] for the Encounter. Date/Time Encounter Type Encounter Description Reason Provider Source May 16, 2023 02:48 PM TTE W/DOPPLER COMPLETE CARDIAC ECHO ICD-10-CM I48.11 Longstanding persistent atrial fibrillation ZABRINA BYRNES IHRosibel Encounter Template Text not used by [place] Assessments - Encounter Diagnoses This section includes the primary and secondary diagnoses documented for the Encounter. Date/Time Primary/Secondary Diagnosis Diagnosis Name Provider Source May 24, 2023 10:03 AM PRIMARY Longstanding persistent atrial fibrillation DEMETRI DOSHI [facility] Plan of Treatment: Future Appointments (+ [...] 20 appointments. The data comes from all [place] treatment [facility]. Appointment Date/Time Appointment Type Appointme nt Facility Name May 23, 2023 07:30 AM AMBULATORY - REHAB MEDICIN [facility] [place] [facility] Jun 10, 2023 11:30 AM AMBULATORY - MEDICINE [facility] Jun 17, 2023 08:00 AM AMBULATORY - PSYCHIATRY [facility] Jun 21, 2023 08:00 AM AMBULATORY - PSYCHIATRY [facility] Jun 24, 2023 11:00 AM AMBULATORY - NONE [facility] [place] [facility] Jun 24, 2023 11:30 AM AMBULATORY - REHAB MEDICIN E [facility] [place] [facility] July 22, 2023 01:00 PM AMBULATORY - PSYCHIATRY [facility] August 03, 2023 08:00 AM AMBULATORY - REHAB MEDICIN [facility] August 05, 2023 09:00 AM AMBULATORY - PS[facility]CHIATRY [facility] [place] [facility] August 05, 2023 03:00 PM AMBULATORY - PSYCHIATRY [facility] [place] [facility] Aug 11, 2023 10:40 AM AMBULATORY - MEDICINE [facility] [place] [facility] Aug 19, 2023 10:00 AM AMBULATORY - REHAB MEDICIN [facility] Sep 09, 2023 09:30 AM AMBULATORY - PS[facility]IATRY [facility] [place] [facility] Oct 14, 2023 09:30 AM AMBULATORY - PS[facility]CHIATRY [facility] [place] [facility] Oct 28, 2023 10:00 AM AMBULATORY - PSYCHIATRY [facility] [place] [facility] Nov 11, 2023 11:00 AM AMBULATORY - PSYCHIATRY [facility] [place] [facility] Nov 14, 2023 03:00 PM AMBULATORY - MEDICINE [place] [facility] [place] [facility] Lab Results: +/- 30 days of the encounter This section includes the Chemistry and Hematology Lab Results on record with [place] for the patient. Radiology Reports and Pathology Reports are provided separately, in subsequent sections. Lab Results This section contains the Chemistry/Hematology Results that were resulted 30 days before or 30 daysafter the date of the Encounter. Date/Time Source Result Type Result - Unit Interpretation Reference Range Comment Jun 09, 2023 08:32 AM [facility] VITAMIN D (25-[place]) Specimen Type: SERUM No comment entered. Ordering Provider: BOY DELONG Report Released Date/Time: Dec 14, 2022 10:56 AM Reporting Lab: [address] [address] Performing Lab: [address] [address] VITAMIN D (25-OH) 21 ng/mL 20-50 Jun 09, 2023 08:32 AM [facility] URINALYSIS Specimen Type: URINE Comment: If Glucose = >500 and Ketones are positive, please alert the Physician. Ordering Provider: BOY DELONG Report Released Date/Time: Dec 14, 2022 10:56 AM Reporting Lab: [address] [address] Performing Lab: [address] [address] UA COLOR Light-Yellow Yellow UA APPEARANCE Clear Clear UA GLUCOSE NEGATIVE mg/dL Negative UA KETONES NEGATIVE mg/dL Negative UA BLOOD NEGATIVE mg/dL Negative UA PROTEIN NEGATIVE mg/dL Negative UA NITRITE NEGATIVE mg/dL Negative UA BILIRUBIN NEGATIVE mg/dL Negative UA SPECIFIC GRAVITY 1.015 L 1.016-1.02 2 UA pH 5.5 5.0-9.0 UA UROBILINOGEN <2.0 mg/dL <2.0 UA LEUKOCYTE NEGATIVE Negative Jun 09, 2023 08:32 AM [facility] VITAMIN B12 Specimen Type: SERUM No comment entered. Ordering Provider: BOY DELONG Report Released Date/Time: Dec 14, 2022 10:56 AM Reporting Lab: [address] [address] Performing Lab: [address] [address] VITAMIN B12 580 pg/mL 200-900 Jun 09, 2023 08:32 AM [facility] FERRITIN Specimen Type: SERUM No comment entered. Ordering Provider: BOY DELONG Report Released Date/Time: Dec 14, 2022 10:56 AM Reporting Lab: [facility] [address] [address] Performing Lab: [facility] [address] [address] FERRITIN 199 ng/mL 20-300 Jun 09, 2023 08:32 AM [facility] RETICULOCYTES Specimen Type: BLOOD No comment entered. Ordering Provider: BOY DELONG Report Released Date/Time: Dec 14, 2022 10:56 AM Reporting Lab: [facility] [address] [address] Performing Lab: [facility] [address] [address] RETIC % 1.1 0.6-2.0 RETIC, ABS 61.8 10*3/uL 30.0-90.0 Ret-He % 31.3 27.9-42.0 Jun 09, 2023 08:32 AM [facility] CBC AND DIFF (AUTO) Specimen Type: BLOOD No comment entered. Ordering Provider: BOY DELONG Report Released Date/Time: Dec 14, 2022 10:56 AM Reporting Lab: [facility] [address] [address] Performing Lab: [address] [address] WBC 4.38 10*3/uL L 4.50-11.00 RBC 5.42 10*6/uL 4.23-5.66 HGB 15.0 g/dL 12.8-17 HCT 44.9 39.2-50.4 MCV 82.8 fL 82-99 MCHC 33.4 g/dL 30.8-35.1 PLT 265 10*3/uL 140-360 RDW-CV 12.8 12.0-16.0 [place], Abs 0.37 10*3/uL 0.30-1.10 MCH 27.7 pg 26.2-32.6 Neut % 56.0 43.7-75.8 Lymph % 31.7 14.0-42.3 [place] % 8.4 5.1-13.7 Eos % 3.0 0.4-6.8 Baso % 0.7 0.1-2.0 Neut, Abs 2.45 10*3/uL 2.20-7.60 Lymph, Abs 1.39 10*3/uL 1.00-3.20 Eos, Abs 0.13 10*3/uL 0.03-0.44 Baso, Abs 0.03 10*3/uL 0.01-0.13 Immature Gran % 0.2 0.0-0.7 Immature Gran, Abs 0.01 10*3/uL 0.00-0.06 Jun 09, 2023 08:32 AM [facility] HEMOGLOBIN A1C PANEL Specimen Type: BLOOD Comment: Values obtained from A1C measurements can vary. For atypical A1C assays, a reported value of 7.0 could actually be between 6.72 and 7.28 if measured by a reference method. A reported value of 9.0 could actually be between 8.73 and 9.27. Ref: http://www.ngs p.org/CAPdata. asp Ordering Provider: BOY DLEONG Report Released Date/Time: Dec 14, 2022 10:56 AM Reporting Lab: [facility] [address] [address] Performing Lab: [facility] [address] HEMOGLOBIN A1C 5.8 H 4.0-5.6 Jun 09, 2023 08:32 AM [facility] PSA Specimen Type: SERUM No comment entered. Ordering Provider: BOY DELONG Report Released Date/Time: Dec 14, 2022 10:56 AM Reporting Lab: [facility] [address] [address] Performing Lab: [facility] [address] PSA 2.13 ng/mL 0.00-4.00 Jun 09, 2023 08:32 AM [facility] TSH Specimen Type: SERUM No comment entered. Ordering Provider: BOY DELONG Report Released Date/Time: Dec 14, 2022 10:56 AM Reporting Lab: [facility] [address] [address] Performing Lab: [facility] [address] [address] TSH 2.27 u[IU]/mL 0.35-5.00 Jun 09, 2023 08:32 AM [facility] LIVER FUNCTION Specimen Type: SERUM No comment entered. Ordering Provider: BOY DELONG Report Released Date/Time: Dec 14, 2022 10:56 AM Reporting Lab: [address] [address] Performing Lab: [address] [address] PROTEIN,TOTAL 6.9 g/dL 6.0-8.3 ALBUMIN 4.0 g/dL 3.5-5.0 ALKALINE PHOSPHATASE 66 U/L 40-150 AST 19 U/L 5-34 ALT 27 U/L BILIRUBIN, TOTAL 0.5 mg/dL 0.2-1.2 Jun 09, 2023 08:32 AM [facility] BASIC METABOLIC PANEL (fasting) Specime n Type: SERUM No comment entered. Ordering Provider: BOY DELONG Report Released Date/Time: Dec 14, 2022 10:56 AM Reporting Lab: [address] [address] Performing Lab: [address] [address] UREA NITROGEN 15 mg/dL 7-25 GLUCOSE 113 mg/dL H 65-100 SODIUM 141 mmol/L 135-145 POTASSIUM 3.9 mmol/L 3.5-5.0 CHLORIDE 108 mmol/L 100-110 CO2 24 meq/L 20-30 CREATININE, Serum 1.17 mg/dL 0.50-1.40 eGFR(CKD-EPI 2020) 71 mL/min >60 Jun 09, 2023 08:32 AM [facility] LIPID PANEL FASTING Specimen Type: SERUM No comment entered. Ordering Provider: BOY DELONG Report Released Date/Time: Dec 14, 2022 10:56 AM Reporting Lab: [address] [address] Performing Lab: [address] [address] CHOLESTEROL 173 mg/dL TRIGLYCERIDE 81 mg/dL 0-150 LDL calculated 118 mg/dL 0-129 CHOL/HDL 4.4 HDL CHOLESTEROL 39 mg/dL L 40-60 Jun 09, 2023 08:32 AM [facility] CALCIUM Specimen Type: SERUM No comment entered. Ordering Provider: OBY DELONG Report Released Date/Time: Dec 14, 2022 10:56 AM Reporting Lab: [address] [address] Performing Lab: [address] [address] CALCIUM 8.8 mg/dL 8.5-10.2 Jun 09, 2023 08:32 AM [facility] URIC ACID Specimen Type: SERUM No comment entered. Ordering Provider: BOY DELONG Report Released Date/Time: Dec 14, 2022 10:56 AM Reporting Lab: [address] [address] Performing Lab: [address] [address] URIC ACID 5.6 mg/dL 3.5-7.2 Radiology Reports: [...] the Encounter. The data comes from all [facility] facilities. Date/Time Radiology Report Provider Source Apr 22, 2023 12:32 PM NON-INVAS. CAROTID IMAGING: SAMEER HONGVIET REIS [id number] -1960 M Exm Date: APR 22, 2023@12:32 Req Phys: BOY DELONG Loc: CWM/SO/PACT 3 WH (Req'g Loc) Img Loc: ULTRASOUND Service: Unknown (Case [id number] COMPLETE) NON-INVAS. CAROTID IMAGING (US Detailed) CPT:63521 Reason for Study: HTN Clinical History: screen Report Status: Verified Date Reported: APR 24, 2023 Date Verified: APR 24, 2023 Precision Layout Worker E-Sig: Report: NON-INVAS. CAROTID IMAGING HISTORY: Reason for Study: HTN screen. COMPARISON: No prior exams for comparison TECHNIQUE: Duplex imaging of the carotid arteries was performed at the local [place] facility utilizing grayscale, color Doppler and spectral analysis. 31 images were received by the [place] National T[facility]ad[facility] (NTP) for interpretation. FINDINGS: [...] 100 cm/sec READING PHYSICIAN: Lloyd Sanchez M.D. -[id number] 04/23/2023 19:24 [facility] National Teleradiology Program [phone] (For Medical Practitioner Use Only) Attention Patients / Veterans: If you have questions or concerns about these test results, please contact your ordering provider or primary care team. Primary Diagnostic Code: NO ALERT REQUIRED Primary Interpreting Staff: RADIOLOGY,OUTSIDE SERVICE, Staff Physician / RADIOLOGY,OUTSIDE SERVICE [facility] Apr 22, 2023 12:31 PM ULTRASOUND AAA SCREENING: LUPILLO HONG [id number] -1960 M Exm Date: APR 22, 2023@12:31 Req Phys: BOY DELONG Loc: CWM/SO/PACT 3 WH (Req'g Loc) Img Loc: ULTRASOUND Service: Unknown (Case [id number] COMPLETE) ULTRASOUND AAA SCREENING (US Detailed) CPT:46259 Reason for Study: HTN Clinical History: screen Report Status: Verified Date Reported: APR 23, 2023 Date Verified: APR 23, 2023 Precision Layout Worker E-Sig: Report: ULTRASOUND AAA SCREENING PROVIDED CLINICAL [...] aneurysm identified. READING PHYSICIAN: Lloyd Sanchez M.D. -[id number] 04/23/2023 16:56 [facility] National Teleradiology Program [phone] (For Medical Practitioner Use Only) Attention Patients / Veterans: If you have questions or concerns about these test results, please contact your ordering provider or primary care team. Primary Diagnostic Code: NO ALERT REQUIRED Primary Interpreting Staff: RADIOLOGY,OUTSIDE SERVICE, Staff Physician / RADIOLOGY,OUTSIDE SERVICE [facility] Encounter Notes: All associated encounter notes This section contains the clinical notes associated to the Encounter. Date/Time Encounter Note(s) Provider Source May 16, 2023 02:48 PM CARDIOLOGY CONSULT : LOCAL TITLE: ECHO CONSULT STANDARD TITLE: CARDIOLOGY CONSULT DATE OF NOTE: MAY 16, 2023@14:48 ENTRY DATE: MAY 16, 2023@14:48:51 AUTHOR: Leandro BYRNES COSIGNER: URGENCY: STATUS: COMPLETED Remote echocardiogram read completed. Report available in [facility]. /[employer]one/ JAMAL STEVENSON Cardiology Attending Signed: 05/16/2023 14:49 JAMAL BYRNES [facility]
--- OUTSIDE RECORDS SUMMARY | 2024-02-15 02:44 | XMS_ITS | Encounter Summary ---
Author Name [facility] [facility] [place] Address [address] [place] [address] Care Team Providers Care Writer Editor Name Role Phone BOY DELONG Primary Care [...] OPTUM RX PRESCRIPT ION HEALT H [facility] Mar 07, 2020 [facility] [id number] MARGARETH HONG RRYL PATIENT Selected Encounter This section includes the information on record at [place] for the Encounter. Date/Time Encounter Type Encounter Description Reason Provider Source May 23, 2023 07:30 AM OFFICE O/P EST LOW 20 MIN PM&RS PHYSICIAN ICD-10-CM M25.561 Pain in right knee SOTERO EIRC E Encounter Template Text not used by [place] Assessments - Encounter Diagnoses This section includes the primary and secondary diagnoses documented for the Encounter. Date/Time Primary/Secondary Diagnosis Diagnosis Name Provider Source July 07, 2023 04:57 PM PRIMARY Pain in right knee REESE ERIC [place] [facility] [place] [facility] July 07, 2023 04:57 PM SECONDARY Pain in left knee REESE ERIC [place] [facility] [place] [facility] Plan of Treatment: Future Appointments (+ 6 months) and Future Tests (+/- 45 days) The Plan of Treatment section includes future care activities for the patient [facility] This section includes future appointments and future orders which are active, pending or scheduled. Future Appointments This section includes appointments that were scheduled to occur 6 months from the date of the Encounter, up to a maximum of 20 appointments. The data comes from all [place] treatment facilities. Appointment Date/Time Appointment Type Appointme nt Facility Name Jun 10, 2023 11:30 AM AMBULATORY - MEDICINE [facility] Jun 17, 2023 08:00 AM AMBULATORY - PSYCHIATRY [facility] Jun 21, 2023 08:00 AM AMBULATORY - PSYCHIATRY [facility] Jun 24, 2023 11:00 AM AMBULATORY - NONE [facility] [place] [facility] Jun 24, 2023 11:30 AM AMBULATORY - [facility]HAB MEDICIN [facility] [place] [facility] July 22, 2023 01:00 PM AMBULATORY - PSYCHIATRY [facility] August 03, 2023 08:00 AM AMBULATORY - REHAB MEDICIN [facility] [place] August 05, 2023 09:00 AM AMBULATORY [facility]IATRY [facility] [place] [facility] August 05, 2023 03:00 PM AMBULATORY - [facility]IATRY [facility] [place] [facility] Aug 11, 2023 10:40 AM AMBULATORY - MEDICINE [place] [facility] [place] [facility] Aug 19, 2023 10:00 AM AMBULATORY - REHAB MEDICIN [facility] Sep 09, 2023 09:30 AM AMBULATORY - PS[facility]CHIATRY [facility] [place] [facility] Oct 14, 2023 09:30 AM AMBULATORY - PS[facility]CHIATRY [facility] [place] [facility] Oct 28, 2023 10:00 AM AMBULATORY - PS[facility]CHIATRY [facility] [place] [facility] Nov 11, 2023 11:00 AM AMBULATORY - PS[facility]CHIATRY [facility] [place] [facility] Nov 14, 2023 03:00 PM AMBULATORY - MEDICINE [facility] [place] [facility] Nov 17, 2023 08:00 AM AMBULATORY - MEDICINE [place] [facility] [place] [facility] Lab Results: +/- 30 days of the encounter This section includes the Chemistry and Hematology Lab Results on record with [place] for the patient. Radiology Reports and Pathology Reports are provided separately, in subsequent sections. Lab Results This section contains the Chemistry/Hematology Results that were resulted 30 days before or 30 daysafter the date of the Encounter. Date/Time Source Result Type Result - Unit Interpretation Reference Range Comment Jun 09, 2023 08:32 AM [place] VITAMIN D (25-OH) Specimen Type: SERUM No comment entered. Ordering Provider: BOY DELONG Report Released Date/Time: Dec 14, 2022 10:56 AM Reporting Lab: [address] [address] Performing Lab: [address] [address] VITAMIN D (25-OH) 21 ng/mL 20-50 Jun 09, 2023 08:32 AM [place] URINALYSIS Specimen Type: URINE Comment: If Glucose = >500 and Ketones are positive, please alert the Physician. Ordering Provider: BOY DELONG Report Released Date/Time: Dec 14, 2022 10:56 AM Reporting Lab: [address] [address] Performing Lab: [address] [address] UA COLOR Light-Yellow Yellow UA APPEARANCE Clear Clear UA GLUCOSE NEGATIVE mg/dL Negative UA KETONES NEGATIVE mg/dL Negative UA BLOOD NEGATIVE mg/dL Negative UA PROTEIN NEGATIVE mg/dL Negative UA NITRITE NEGATIVE mg/dL Negative UA BILIRUBIN NEGATIVE mg/dL Negative UA SPECIFIC GRAVITY 1.015 L 1.016-1.02 2 UA pH 5.5 5.0-9.0 UA UROBILINOGEN <2.0 mg/dL <2.0 UA LEUKOCYTE NEGATIVE Negative Jun 09, 2023 08:32 AM [place] VITAMIN B12 Specimen Type: SERUM No comment entered. Ordering Provider: BOY DELONG Report Released Date/Time: Dec 14, 2022 10:56 AM Reporting Lab: [address] [address] Performing Lab: [address] [address] VITAMIN B12 580 pg/mL 200-900 Jun 09, 2023 08:32 AM [place] CBC AND DIFF (AUTO) Specimen Type: BLOOD No comment entered. Ordering Provider: BOY DELONG Report Released Date/Time: Dec 14, 2022 10:56 AM Reporting Lab: [facility] [address] [facility] [address] Performing Lab: [address] [address] WBC 4.38 10*3/uL L 4.50-11.00 RBC 5.42 10*6/uL 4.23-5.66 HGB 15.0 g/dL 12.8-17 HCT 44.9 39.2-50.4 MCV 82.8 fL 82-99 MCHC 33.4 g/dL 30.8-35.1 PLT 265 10*3/uL 140-360 RDW-CV 12.8 12.0-16.0 [place], Abs 0.37 10*3/uL 0.30-1.10 MCH 27.7 pg 26.2-32.6 Neut % 56.0 43.7-75.8 Lymph % 31.7 14.0-42.3 [place] % 8.4 5.1-13.7 Eos % 3.0 0.4-6.8 Baso % 0.7 0.1-2.0 Neut, Abs 2.45 10*3/uL 2.20-7.60 Lymph, Abs 1.39 10*3/uL 1.00-3.20 Eos, Abs 0.13 10*3/uL 0.03-0.44 Baso, Abs 0.03 10*3/uL 0.01-0.13 Immature Gran % 0.2 0.0-0.7 Immature Gran, Abs 0.01 10*3/uL 0.00-0.06 Jun 09, 2023 08:32 AM [place] FERRITIN Specimen Type: SERUM No comment entered. Ordering Provider: BOY DELONG Report Released Date/Time: Dec 14, 2022 10:56 AM Reporting Lab: [facility] [address] [facility] [address] Performing Lab: [address] [address] FERRITIN 199 ng/mL 20-300 Jun 09, 2023 08:32 AM [place] RETICULOCYTES Specimen Type: BLOOD No comment entered. Ordering Provider: BOY DELONG Report Released Date/Time: Dec 14, 2022 10:56 AM Reporting Lab: [facility] [address] [facility] [address] Performing Lab: [facility] [address] [address] RETIC % 1.1 0.6-2.0 RETIC, ABS 61.8 10*3/uL 30.0-90.0 Ret-He % 31.3 27.9-42.0 Jun 09, 2023 08:32 AM [place] HEMOGLOBIN A1C PANEL Specimen Type: BLOOD Comment: Values obtained from A1C measurements can vary. For atypical A1C assays, a reported value of 7.0 could actually be between 6.72 and 7.28 if measured by a reference method. A reported value of 9.0 could actually be between 8.73 and 9.27. Ref: http://www.ngs p.org/CAPdata. asp Ordering Provider: BOY DELOGN Report Released Date/Time: Dec 14, 2022 10:56 AM Reporting Lab: [facility] [address] Performing Lab: [facility] [address] [address] HEMOGLOBIN A1C 5.8 H 4.0-5.6 Jun 09, 2023 08:32 AM [place] TSH Specimen Type: SERUM No comment entered. Ordering Provider: BOY DELONG Report Released Date/Time: Dec 14, 2022 10:56 AM Reporting Lab: [facility] [address] [address] Performing Lab: [facility] [address] TSH 2.27 u[IU]/mL 0.35-5.00 Jun 09, 2023 08:32 AM [place] PSA Specimen Type: SERUM No comment entered. Ordering Provider: BOY DELONG Report Released Date/Time: Dec 14, 2022 10:56 AM Reporting Lab: [facility] [address] [address] Performing Lab: [facility] [address] [facility] [address] PSA 2.13 ng/mL 0.00-4.00 Jun 09, 2023 08:32 AM [place] LIVER FUNCTION Specimen Type: SERUM No comment entered. Ordering Provider: BOY DELONG Report Released Date/Time: Dec 14, 2022 10:56 AM Reporting Lab: [facility] [address] [facility] [address] Performing Lab: [address] [address] PROTEIN,TOTAL 6.9 g/dL 6.0-8.3 ALBUMIN 4.0 g/dL 3.5-5.0 ALKALINE PHOSPHATASE 66 U/L 40-150 AST 19 U/L 5-34 ALT 27 U/L BILIRUBIN, TOTAL 0.5 mg/dL 0.2-1.2 Jun 09, 2023 08:32 AM [place] LIPID PANEL FASTING Specimen Type: SERUM No comment entered. Ordering Provider: BOY DELONG Report Released Date/Time: Dec 14, 2022 10:56 AM Reporting Lab: [address] [address] Performing Lab: [address] [address] CHOLESTEROL 173 mg/dL TRIGLYCERIDE 81 mg/dL 0-150 LDL calculated 118 mg/dL 0-129 CHOL/HDL 4.4 HDL CHOLESTEROL 39 mg/dL L 40-60 Jun 09, 2023 08:32 AM [place] BASIC METABOLIC PANEL (fasting) Specime n Type: SERUM No comment entered. Ordering Provider: BOY DELONG Report Released Date/Time: Dec 14, 2022 10:56 AM Reporting Lab: [address] [address] Performing Lab: [address] [address] UREA NITROGEN 15 mg/dL 7-25 GLUCOSE 113 mg/dL H 65-100 SODIUM 141 mmol/L 135-145 POTASSIUM 3.9 mmol/L 3.5-5.0 CHLORIDE 108 mmol/L 100-110 CO2 24 meq/L 20-30 CREATININE, Serum 1.17 mg/dL 0.50-1.40 eGFR(CKD-EPI 2020) 71 mL/min >60 Jun 09, 2023 08:32 AM [place] CALCIUM Specimen Type: SERUM No comment entered. Ordering Provider: BOY DELONG Report Released Date/Time: Dec 14, 2022 10:56 AM Reporting Lab: [address] [address] Performing Lab: [address] [address] CALCIUM 8.8 mg/dL 8.5-10.2 Jun 09, 2023 08:32 AM [place] URIC ACID Specimen Type: SERUM No comment entered. Ordering Provider: BOY DELONG Report Released Date/Time: Dec 14, 2022 10:56 AM Reporting Lab: [address] [address] Performing Lab: [address] [address] URIC ACID 5.6 mg/dL 3.5-7.2 Vital Signs: All taken on the encounter date This section contains inpatient and outpatient Vital Signs collected on the date of the Encounter. Date/Time Temperature Pulse Blood Pressure Respiratory Rate SP02 Pain Height Weight Body Mass Index Source May 23, 2023 07:41 AM 130/80 5 [facility] Encounter Notes: All associated encounter notes This section contains the clinical notes associated to the Encounter. Date/Time Encounter Note(s) Provider Source May 23, 2023 08:02 AM PHYSICAL MEDICINE REHAB NOTE: LOCAL TITLE: PM&R BACK/JOINT PROCEDURE NOTE STANDARD TITLE: PHYSICAL MEDICINE REHAB NOTE DATE OF NOTE: MAY 23, 2023@08:02 ENTRY DATE: MAY 23, 2023@08:02:33 AUTHOR: SOTERO ERIC COSIGNER: URGENCY: STATUS: COMPLETED PROCEDURE: Bilateral intra-articular knee injection with hyluronic Acid, INDICATION: Knee pain.Osteoarthritis ANESTHESIA: None. INFORMED CONSENT: Obtained verbally, and through [facility]. [place] states the knees continue to be achy when standing for long periods of time as well as when sitting. He continues to feel crepitus at times. Pain levels can be 5 out of 10 but can also escalate to 8 out of 10. He is not doing any leg strengthening at this time. He was awaiting physical therapy but was not contacted. He is using ibuprofen as well as Celebrex and was counseled against this. He is able to use his Tylenol and Celebrex. He finds this only modestly helpful. Exam shows no effusion redness or warmth. Limited space within the medial compartment. Varus alignment. Parapatellar tenderness bilaterally left greater than right. No tenderness over the pes anserinus. Tightness within the hamstrings identified bilaterally. Range of motion is 130 degrees of flexion with terminal extension. The steps of the procedure, potential risks and benefits of the intra-articular knee injection, as well as alternatives were discussed with patient. The potential risks include, but not limited to: local injection reaction, pain, bruising/hematoma, nerve damage, adverse side effects to hyaluronic acid, infection, and swelling of the knee. Patient agreed to proceed with the injection. TIME OUT NOTE TIME:May@07:40 [place] correctly stated: [X]Full name: LUPILLO HONG [X]Last 4 of #: [id number] [X]: Oct PROVIDER NAME: Sotero Eric PA-c STAFF NAME: Mya Grewal RN Lot #: [id number] Exp: 2025-08-04 The procedure was performed with the patient in the seated position. The left knee was flexed . The anteromedial approach was performed and sterile techniques were utilized throughout today's procedure. Landmarks were palpated and the area of interest was marked. After cleaning the area with Povidone-iodine x 3, a 23G 1.5 needle and attached syringe were introduced superolaterally with 2cc of 0.9% normal saline until loss of resistance. After negative aspiration for heme, 60 mg of Durolane was injected without difficulties. The needle was withdrawn and light compression was applied with a 2x2 gauze until bleeding stopped. A band-aid was applied. The procedure was then repeated on the right knee No complications. No blood loss. The patient tolerated the procedure well without any immediate adverse side effects. Patient was instructed on the use of ice prn post injection pain/swelling. The patient was able to ambulate out of the office today, and was discharged home with instructions to monitor for any adverse reactions/side effects, and to contact me with any issues. Pre-procedure pain level: 5/10 Post-procedure pain level: 3/10 Assessment and plan: 62-year-old [place] with bilateral osteoarthritis of the knees. Durolane injected to both knees. Risks and benefits discussed prior to injection. We will reduce his activities over the next several weeks. Icing was recommended. He will inform us in the event that there is any redness swelling or warmth to the knees. He understands that it may take 4 to 6 weeks before symptoms significantly improve and it does take some time for the hyaluronic acid to be effective. VVc follow-up in 4 weeks to determine efficacy. MDM: 25 minutes Suicide Screen: C-SSRS Screening [place]-Suicide Severity Rating Scale (C-SSRS Screener) 1. Over the past month, have you wished you were or wished you could go to sleep and not wake up? No 2. Over the past month, have you had any actual thoughts of killing yourself? No 3. Over the past month, have you been thinking about how you might do this? Response not required due to responses to other questions. 4. Over the past month, have you had these thoughts and had some intention of acting on them? Response not required due to responses to other questions. 5. Over the past month, have you started to work out or worked out the details of how to kill yourself? Response not required due to responses to other questions. 6. If yes, at any time in the past month did you intend to carry out this plan? Response not required due to responses to other questions. 7. In your lifetime, have you ever done anything, started to do anything, or prepared to do anything to end your life (for example, collected pills, obtained a gun, gave away valuables, went to the roof but didn't jump)? No 8. If YES, was this within the past 3 months? Response not required due to responses to other questions. /ivone/ [facility] Signed: 05/23/2023 08:09 [facility]
--- OUTSIDE RECORDS SUMMARY | 2024-02-15 02:46 | XMS_ITS ---
Author Name [facility] [facility] [place] Address [address] [place] [address] Care Team Providers Care [employer] Manager Name Role Phone BOY DELONG Primary [...] OPTUM RX PRESCRIPT ION HEALT H [facility] Mar 07, 2020 [facility] [id number] MARGARETH HONG RRYL PATIENT Selected Encounter This section includes the information on record at [place] for the Encounter. Date/Time Encounter Type Encounter Description Reason Provider Source Jan 13, 2024 10:00 AM MTMS BY PHARM ADDL 15 [facility] - IND ICD-10-CM F32.1 Major depressive disorder, single episode, moderate PRETTY MEEHAN Rosibel Encounter Template Text not used by [place] Assessments - Encounter Diagnoses This section includes the primary and secondary diagnoses documented for the Encounter. Date/Time Primary/Secondary Diagnosis Diagnosis Name Provider Source Jan 13, 2024 10:27 AM PRIMARY Major depressive disorder, single episode, moderate PRETTY MEEHAN [facility] Plan of Treatment: Future Appointments (+ 6 months) and Future Tests (+/- 45 days) The Plan of Treatment section includes future care activities for the patient [facility] [place] [facility] This section includes future appointments and future orders which are active, pending or scheduled. Future Appointments This section includes appointments that were scheduled to occur 6 months from the date of the Encounter, up to a maximum of 20 appointments. The data comes from all [facility]. Appointment Date/Time Appointment Type Appointme nt Facility Name Feb 03, 2024 03:30 PM [facility] Feb 17, 2024 11:00 AM AMBULATORY - REHAB MEDICIN [facility] [place] Mar 01, 2024 11:00 AM [facility] Apr 06, 2024 10:00 AM AMBULATORY - PSYCHIATRY [facility] May 14, 2024 10:30 AM AMBULATORY - MEDICINE [facility] Active, Pending, and Scheduled Orders This section includes a listing of several types of active, pending, and scheduled orders, including clinic medications orders, diagnostic test orders, procedure orders and consult orders; where the start date of the order is 45 days before the date of the Encounter or 45 days after the date of theEncounter. The data comes from all [facility]. Test Date/Time Test Type Test Details Facility Name Jan 13, 2024 01:37 PM Consult Order COMMUNITY CARE-ORTHO SURGICAL Cons Research And Development Technician's Choice [facility] Feb 03, 2024 03:52 PM Consult Order PHYSICAL THERAPY/SPOPC OUTPT Cons Research And Development Technician's Choice [place] Feb 10, 2024 12:00 AM Laboratory - Chemistry Order RHEUMATOID FACTOR BLOOD (SST-SERUM) [facility] Feb 10, 2024 12:00 AM Laboratory - Chemistry Order HLA-B27 (QU) BLOOD (OOKTT-UjOsk-UCQVV) [facility] Feb 10, 2024 12:00 AM Laboratory - Chemistry Order MICHA SCREEN/TITER BLOOD (SST-GOLD) SERUM [facility] Feb 10, 2024 12:00 AM Laboratory - Chemistry Order C REACTIVE PROTEIN HS (WROX) BLOOD (SST-SERUM) [facility] Feb 10, 2024 12:00 AM Laboratory - Chemistry Order SED RATE, AUTOMATED BLOOD (LAV-BLOOD) [facility] Lab Results: +/- 30 days of the encounter This section includes the Chemistry and Hematology Lab Results on record with [place] for the patient. Radiology Reports and Pathology Reports are provided separately, in subsequent sections. Lab Results This section contains the Chemistry/Hematology Results that were resulted 30 days before or 30 daysafter the date of the Encounter. Date/Time Source Result Type Result - Unit Interpretation Reference Range Comment Jan 06, 2024 10:11 AM [place] MICROALBUMIN CREATININE RATIO PANEL Spe cimen Type: URINE No comment entered. Ordering Provider: BOY DELONG Report Released Date/Time: Nov 23, 2023 08:33 AM Reporting Lab: [address] [address] Performing Lab: [address] [address] MICROALBUMIN/C REATININE RATIO 13.8 mg/g 0-29.9 MICROALBUMIN,Q UANTITATIVE 2.5 mg/dL RR UNAVAIL CREATININE URINE 180.82 mg/dL Jan 06, 2024 10:11 AM [place] URINALYSIS Specimen Type: URINE Comment: If Glucose = >500 and Ketones are positive, please alert the Physician. Ordering Provider: BOY DELONG Report Released Date/Time: Nov 23, 2023 08:33 AM Reporting Lab: [facility] [id number] [address] Performing Lab: [address] [address] UA COLOR Light-Yellow Yellow UA APPEARANCE Clear Clear UA GLUCOSE Normal mg/dL Negative UA KETONES NEGATIVE mg/dL Negative UA BLOOD NEGATIVE mg/dL Negative UA PROTEIN 10 mg/dL Negative UA NITRITE NEGATIVE mg/dL Negative UA BILIRUBIN NEGATIVE mg/dL Negative UA SPECIFIC GRAVITY 1.024 H 1.016-1.022 UA pH 5.5 5.0-9.0 UA UROBILINOGEN Normal mg/dL <2.0 UA LEUKOCYTE NEGATIVE Negative Jan 06, 2024 09:55 AM [place] URIC ACID Specimen Type: SERUM No comment entered. Ordering Provider: BOY DELONG Report Released Date/Time: Nov 23, 2023 08:33 AM Reporting Lab: [facility] [employer] [address] Performing Lab: [address] [address] URIC ACID 5.7 mg/dL 3.5-7.2 Jan 06, 2024 09:55 AM [place] CALCIUM Specimen Type: SERUM No comment entered. Ordering Provider: BOY DELONG Report Released Date/Time: Nov 23, 2023 08:33 AM Reporting Lab: [address] [address] Performing Lab: [address] [address] CALCIUM 9.0 mg/dL 8.5-10.2 Jan 06, 2024 09:55 AM [place] BASIC METABOLIC PANEL (fasting) Specime n Type: SERUM No comment entered. Ordering Provider: BOY DELONG Report Released Date/Time: Nov 23, 2023 08:33 AM Reporting Lab: [address] [address] Performing Lab: [address] [address] UREA NITROGEN 18 mg/dL 7-25 GLUCOSE 108 mg/dL H 65-100 SODIUM 140 mmol/L 135-145 POTASSIUM 3.9 mmol/L 3.5-5.0 CHLORIDE 111 mmol/L H 100-110 CO2 21 meq/L 20-30 CREATININE, Serum 1.13 mg/dL 0.50-1.40 eGFR(CKD-EPI 2020) 74 mL/min >60 Jan 06, 2024 09:55 AM [place] LIVER FUNCTION Specimen Type: SERUM No comment entered. Ordering Provider: BOY DELONG Report Released Date/Time: Nov 23, 2023 08:33 AM Reporting Lab: [address] [address] Performing Lab: [address] [address] PROTEIN,TOTAL 6.8 g/dL 6.0-8.3 ALBUMIN 3.9 g/dL 3.5-5.0 ALKALINE PHOSPHATASE 66 U/L 40-150 AST 21 U/L 5-34 ALT 34 U/L BILIRUBIN, TOTAL 0.4 mg/dL 0.2-1.2 Jan 06, 2024 09:55 AM [place] LIPID PANEL FASTING Specimen Type: SERUM No comment entered. Ordering Provider: BOY DELONG Report Released Date/Time: Nov 23, 2023 08:33 AM Reporting Lab: [facility] [place] [facility] [address] [facility] [address] Performing Lab: [facility] [address] [facility] [address] CHOLESTEROL 168 mg/dL TRIGLYCERIDE 70 mg/dL 0-150 LDL calculated 115 mg/dL 0-129 CHOL/HDL 4.3 HDL CHOLESTEROL 39 mg/dL L 40-60 Jan 06, 2024 09:55 AM [place] VITAMIN D (25-OH) Specimen Type: SERUM No comment entered. Ordering Provider: BOY DELONG Report Released Date/Time: Nov 23, 2023 08:33 AM Reporting Lab: [facility] [address] [facility] [address] Performing Lab: [facility] [place] [facility] [address] [address] VITAMIN D (25-OH) 23 ng/mL 20-50 Jan 06, 2024 09:55 AM [place] FERRITIN Specimen Type: SERUM No comment entered. Ordering Provider: BOY DELONG Report Released Date/Time: Nov 23, 2023 08:33 AM Reporting Lab: [facility] [address] [facility] [address] Performing Lab: [facility] [address] [address] FERRITIN 214 ng/mL 20-300 Jan 06, 2024 09:55 AM [place] VITAMIN B12 Specimen Type: SERUM No comment entered. Ordering Provider: BOY DELONG Report Released Date/Time: Nov 23, 2023 08:33 AM Reporting Lab: [facility] [place] [facility] [address] [facility] [address] Performing Lab: [facility] [address] [address] VITAMIN B12 636 pg/mL 200-900 Jan 06, 2024 09:55 AM [place] PSA Specimen Type: SERUM No comment entered. Ordering Provider: BOY DELONG Report Released Date/Time: Nov 23, 2023 08:33 AM Reporting Lab: [facility] [address] [facility] [address] Performing Lab: [facility] [address] [address] PSA 1.09 ng/mL 0.00-4.00 Jan 06, 2024 09:55 AM [place] HEMOGLOBIN A1C PANEL Specimen Type: BLOOD Comment: [...] Nov 23, 2023 08:33 AM Reporting Lab: [address] [address] Performing Lab: [address] [address] HEMOGLOBIN A1C 5.5 4.0-5.6 Jan 06, 2024 09:55 AM [place] TSH Specimen Type: SERUM No comment entered. Ordering Provider: BOY DELONG Report Released Date/Time: Nov 23, 2023 08:33 AM Reporting Lab: [facility] [address] [address] Performing Lab: [address] [address] TSH 3.01 u[IU]/mL 0.35-5.00 Jan 06, 2024 09:55 AM [place] CBC AND DIFF (AUTO) Specimen Type: BLOOD No comment entered. Ordering Provider: BOY DELONG Report Released Date/Time: Nov 23, 2023 08:33 AM Reporting Lab: [facility] [address] [address] Performing Lab: [facility] [place] [id number] WBC 3.76 10*3/uL L 4.50-11.00 RBC 5.35 10*6/uL 4.23-5.66 HGB 14.6 g/dL 12.8-17 HCT 43.7 39.2-50.4 MCV 81.7 fL L 82-99 MCHC 33.4 g/dL 30.8-35.1 PLT 261 10*3/uL 140-360 RDW-CV 12.8 12.0-16.0 MONO, ABS 0.38 10*3/uL 0.30-1.10 MCH 27.3 pg 26.2-32.6 NEUT % 47.3 43.7-75.8 LYMPH % 37.2 14.0-42.3 MONO % 10.1 5.1-13.7 EOS % 4.3 0.4-6.8 BASO % 0.8 0.1-2.0 NEUT, ABS 1.78 10*3/uL L 2.20-7.60 LYMPH, ABS 1.40 10*3/uL 1.00-3.20 EOS, ABS 0.16 10*3/uL 0.03-0.44 BASO, ABS 0.03 10*3/uL 0.01-0.13 IMMATURE GRAN % 0.3 0.0-0.7 IMMATURE GRAN, ABS 0.01 10*3/uL 0.00-0.06 NRBC % 0.0 0.0-0.0 NRBC, ABS 0.00 10*3/uL 0.00-0.00 Vital Signs: All taken on the encounter date This section contains inpatient and outpatient Vital Signs collected on the date of the Encounter. Date/Time Temperature Pulse Blood Pressure Respiratory Rate SP02 Pain Height Weight Body Mass Index Source Jan 13, 2024 01:11 PM 124/70 3 [place] [facility] [facility] Radiology Reports: +/- 30 days of the [...] the Encounter. The data comes from all [place] treatment facilities. Date/Time Radiology Report Provider Source Jan 10, 2024 11:27 AM KNEE 3 VIEWS (LEFT): LUPILLO HONG [id number] -1960 M Exm Date: JAN 10, 2024@11:27 Req Phys: BALJEETBOY Azalea Loc: CWM/SO/PACT 3 WH (Req'g Loc) Img Loc: [facility]/BUILDING 1 Service: Unknown [place] [facility] [place] [address] (Case [id number] COMPLETE) KNEE 3 VIEWS (LEFT) (RAD Detailed) CPT:67475 Reason for Study: left knee pain Clinical History: any OA or joint erosions? did have gout L knee Report Status: Verified Date Reported: JAN 10, 2024 Date Verified: JAN 10, 2024 Log Driver E-Sig: Report: KNEE 3 VIEWS (LEFT) COMPARISON: Knee radiographs 11/27/2021 CLINICAL HISTORY: Left knee pain FINDINGS: Standing frontal view of bilateral knees as well as lateral and sunrise patellar views of the left knee are provided. LEFT KNEE: Moderate to severe joint space loss of the lateral portion of the patellofemoral compartment with marginal osteophytosis. Severe medial and mild lateral tibiofemoral compartment joint degeneration. No acute fracture or dislocation. No significant joint effusion. At least moderate superior and inferior patellar enthesophytes. 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 Moderate to severe proximal tib-fib joint degeneration. Overall appearance of the knee is similar to prior. RIGHT KNEE: Single frontal view of the right knee demonstrates severe medial and fwfw-wj-arwvufim lateral tibiofemoral compartment joint degeneration, similar to prior. Prominent marginal osteophytosis of the medial tibial plateau, femoral condyles and patella. There also appears to be degeneration of the proximal tib-fib joint, incompletely assessed given single view. Overall appearance of the right knee is similar to prior exam. 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 Overall findings are similar to prior. READING PHYSICIAN: Karon Blount M.D. -[phone] 01/10/2024 11:58 EST [facility] Quant the Newsradiology Program [phone] (For Medical Practitioner Use Only) Attention Patients / Veterans: If you have questions or concerns about these test results, please contact your ordering provider or primary care team. Primary Diagnostic Code: NO ALERT REQUIRED Primary Interpreting Staff: RADIOLOGY,OUTSIDE SERVICE, Staff Physician / RADIOLOGY,OUTSIDE SERVICE [facility] Jan 10, 2024 11:[address] MAXILLOFACIAL W/O CONT: LUPILLO HONG [id number] -1960 M Exm Date: JAN 10, 2024@11:15 Req Phys: BOY DELONG Loc: CWM/SO/PACT 3 WH (Req'g Loc) Img Loc: NHM/CT Service: Unknown [facility] [place], [place] [address] (Case [id number] COMPLETE) CT MAXILLOFACIAL W/O CONT (CT Detailed) CPT:35114 Reason for Study: post nasal drip Clinical History: always cleasring thraot Report Status: Verified Date Reported: JAN 10, 2024 Date Verified: JAN 10, 2024 Log Driver E-Sig: Report: MAXILLOFACIAL CT WITHOUT IV CONTRAST/CT OF THE PARANASAL SINUSES WITHOUT IV CONTRAST: INDICATION: Post nasal drip. Patient reportedly always clearing throat. TECHNIQUE: Volumetric CT acquisition through the maxillofacial structures/paranasal sinuses, with axial, coronal and sagittal reformats, was performed at the local [place] facility. 159 images were received by the [place] National Teleradiology Program (NTP) for interpretation. RADIATION DOSE (mGy*cm): 313.90 IV CONTRAST: None. COMPARISON: None relevant available. FINDINGS: Right: The right frontal sinus is hypoplastic but essentially clear. There is a probable small agger nasi cell which somewhat narrows the right frontal recess which is otherwise essentially patent. There is minimal mucosal thickening in the right ethmoid air cells. There is minimal mucosal thickening in the right maxillary sinus. The right maxillary sinus ostium and infundibulum are essentially patent. The right middle meatus and right middle nasal turbinate are unremarkable. The dominant right chamber of the sphenoid sinus and right sphenoethmoidal recess are essentially clear. The right nasal cavity is unremarkable. Left: The left frontal sinus is markedly hypoplastic but essentially clear. There is a probable small agger nasi cell which somewhat narrows the left frontal recess which is otherwise essentially patent. There is minimal mucosal thickening in the left ethmoid air cells. There is minimal mucosal thickening in the left maxillary sinus. The left maxillary sinus ostium and infundibulum are essentially patent. The left middle meatus and left middle nasal turbinate are unremarkable. The nondominant left chamber of the sphenoid sinus and left sphenoethmoidal recess are essentially clear. The left nasal cavity is unremarkable. No definite acute fracture is demonstrated in the imaged facial bones. The depth of the right olfactory fossa is approximately 5-6 mm. The depth of the left olfactory fossa is approximately 4-5 mm. The lamina papyracea, roof of the ethmoids, and planum sphenoidale are intact. There is pneumatization of the bilateral petrous apices. The included bilateral mastoid air cells are predominantly clear. The nasopharynx is unremarkable. Limited intracranial images show no hydrocephalus. Impression: Minimal mucosal thickening in the bilateral ethmoid air cells and bilateral maxillary sinuses. No definite air-fluid levels are demonstrated. Other commentary as above. READING PHYSICIAN: Boy Sun -[phone] 01/10/2024 16:06 EST [facility] Quant the Newsradiology Program [phone] (For Medical Practitioner Use Only) Attention Patients / Veterans: If you have questions or concerns about these test results, please contact your ordering provider or primary care team. Primary Diagnostic Code: NO ALERT REQUIRED Primary Interpreting Staff: RADIOLOGY,OUTSIDE SERVICE, Staff Physician / RADIOLOGY,OUTSIDE SERVICE [facility] Jan 10, 2024 11:[address] THORAX W/O CONT: LUPILLO HONG [id number] -1960 M Ex Date: JAN 10, 2024@11:15 Req Phys: BOY DELONG Loc: CWM/SO/PACT 3 WH (Req'g Loc) Img Loc: NHM/CT Service: [place] [address] (Case 84 COMPLETE) CT THORAX W/O CONT (CT Detailed) CPT:54416 Reason for Study: chest tightness Clinical History: post nasal drip coughing echo and ekg of heart neg for cardiac pathology back in may 2023 any signs interstitial lung disease? Report Status: Verified Date Reported: JAN 10, 2024 Date Verified: JAN 10, 2024 Log Driver E-Sig: Report: CT OF THE CHEST WITHOUT IV CONTRAST INDICATION: Chest tightness, post nasal drip, coughing. Assess for signs of interstitial lung disease. TECHNIQUE: Volumetric CT acquisition through the chest, with axial, coronal and sagittal reformats, was performed at the local [place] facility. 1194 images were received by the [place] National Teleradiology Program (NTP) for interpretation. RADIATION DOSE (mGy*cm): 220.70 IV CONTRAST: None. COMPARISON: Correlation is made with the abdominal sonogram on 06/24/2023, carotid Doppler ultrasound and abdominal aortic ultrasound on 04/22/2023, chest CT on 05/21/2022, plain films of the lumbosacral spine on 11/06/2021, abdominal sonogram on 05/29/[address] on 04/17/2021. FINDINGS: Minimal calcified atherosclerotic plaque is again noted in the thoracic aorta. There is ectasia/borderline fusiform aneurysmal dilatation of the ascending thoracic aorta measuring approximately 4.1 cm in AP dimension which is grossly stable since 04/17/2021. Dilatation of the main pulmonary artery is again noted measuring approximately 3.6 cm in diameter which can be seen in the setting of pulmonary arterial hypertension. Clinical correlation is recommended. There is a probable mildly enlarged para-aortic mediastinal lymph node measuring approximately 1.1 cm in short axis diameter. This is grossly similar in appearance since 04/17/2021 and is probably reactive in nature although indeterminate. There are several scattered subcentimeter mediastinal lymph nodes otherwise again identified which are entirely nonspecific but probably are reactive in nature. Evaluation for hilar lymphadenopathy is limited given the lack of administration of intravenous contrast. There is otherwise no definite bulky axillary, mediastinal, or hilar lymphadenopathy. There is no significant pericardial effusion. There is probable minimal to mild bilateral gynecomastia again noted. There is a nonspecific 5 mm pulmonary nodule in the right lower lobe along the right major fissure as seen on axial image #208 of series 8 which is essentially stable since 04/17/2021. There is a nonspecific pulmonary micronodule in the left lower lobe along the left major fissure as seen on axial image #198 of series 8 which is essentially stable since 04/17/2021. There is probable minimal to mild scattered bibasilar and peripheral bilateral subsegmental atelectasis and/or scarring again noted. There however are no definite prominent pulmonary reticular opacities with peripheral basilar predominance, peripheral traction bronchiectasis/bronchiolec tasis, groundglass pulmonary opacities, or stacked subpleural cystic spaces suggestive of honeycombing that would be highly indicative of interstitial lung disease and/or pulmonary fibrosis. There is no definite discrete pulmonary parenchymal mass or consolidation. There are no pleural effusions. There is no pneumothorax. There is a rounded fluid attenuation lesion in the right hepatic lobe measuring approximately 2.0 cm in transaxial dimension as seen on axial image #134 of series 3 which is compatible with a cyst. There is a rounded fluid attenuation lesion in the left hepatic lobe measuring approximately 1.5 cm in transaxial dimension as seen on axial image #117 of series 3 which is compatible with a cyst. These have been present since the CT of 04/17/2021. There also is a partially imaged rounded fluid attenuation lesion again noted in the upper pole of the left kidney which also probably reflects a cyst. Limited images of the upper abdomen otherwise demonstrate no gross focal abnormality. Mild generalized osteopenia is noted. Multilevel spinal degenerative change is again noted. Impression: No definite evidence for interstitial lung disease and/or pulmonary fibrosis. Minimal thoracic aortic atherosclerosis with ectasia/borderline fusiform aneurysmal dilatation of the ascending thoracic aorta measuring approximately 4.1 cm in AP dimension which is grossly stable since 04/17/2021. Dilatation of the main pulmonary artery which can be seen in the setting of pulmonary arterial hypertension. Clinical correlation is recommended. Probable mildly enlarged para-aortic mediastinal lymph node which is grossly similar in appearance since 04/17/2021 and is probably reactive in nature although indeterminate. Other findings and commentary as detailed above. READING PHYSICIAN: Boy Sun -[phone] 01/10/2024 17:01 [facility] National Teleradiology Program [phone] (For Medical Practitioner Use Only) Attention Patients / Veterans: If you have questions or concerns about these test results, please contact your ordering provider or primary care team. Primary Diagnostic Code: SIGNIFICANT ABNORMALITY, ATTN NEEDED Primary Interpreting Staff: RADIOLOGY,OUTSIDE SERVICE, Staff Physician / RADIOLOGY,OUTSIDE SERVICE [place] [facility] [place] Encounter Notes: All associated encounter notes This section contains the clinical notes associated to the Encounter. Date/Time Encounter Note(s) Provider Source Jan 13, 2024 10:07 AM PHARMACY MEDICATION MGT NOTE: LOCAL TITLE: CLINICAL PHARMACIST F/U NOTE STANDARD TITLE: PHARMACY MEDICATION MGT NOTE DATE OF NOTE: JAN 13, 2024@10:07 ENTRY DATE: JAN 13, 2024@10:08:01 AUTHOR: DIEUDONNE MEEHAN COSIGNER: URGENCY: STATUS: COMPLETED CLINICAL PHARMACIST F/U NOTE Has ADDENDA [place] [facility] (VVC) Standard Documentation [facility] Clinician Resources Only: E911 (Emergency Call Relay Center): [phone] National Veterans Crisis Line - 988 then press #1. [facility] Suicide Coordinator [phone], Ext. [phone]; Back-up Ext. [phone] [place] [employer], [place], [place] [phone] Introduction: Visit is being conducted by [place] [employer]. Marlette identified with 2 identifiers: [X] Full Name [X] Date of [ ] [place] ID Card Emergency Plan: Marlette confirmed and/or provided the following information in case of emergency or technology failure. PATIENT PHONE - PHONE NUMBER [CELLULAR] - NONE FOUND Is patient phone number correct, if not, enter below: Marlette's phone number: LUPILLO HONG [address], [place], [address] 's present location and address for appointment: at home Marlette's emergency contact name and phone number: on file Marlette reported that location is private and safe: Yes Informed Consent: Marlette informed of the risks and benefits of Telehealth video care. Marlette has the right to refuse video services. If refuses video visit, a [id number] visit will be scheduled. Marlette verbalized consent for this video visit: Yes Marlette provided consent for any other persons present for visit: No If yes, who and relationship to patient: Secure visit: Visit was locked for security and privacy:Yes -=-=-=-=-=-=-=-=-=-=-=-=-=-=- =-=-=-=-=-==-=-=-=-=-=-=-=-=- =-=-=-=-=-=-=-=-=-=-=- -=-=-=-=-=-=-=-=-=-=-=-=-=-=- =-=-=-=-=-==-=-=-=-=-=-=-=-=- =-=-=-=-=-=-=-=-=-=-=- Program: Clinical Pharmacy Provider/Medication Management Speciality: Mental Health ATTENDED BY: [X] Patient [ ] Spouse/Caregiver LENGTH OF SESSION: 30minutes -=-=-=-=-=-=-=-=-=-=-=-=-=-=- =-=-=-=-=-==-=-=-=-=-=-=-=-=- =-=-=-=-=-=-=-=-=-=-=- Name: LUPILLO HONG : Oct ID: 63yo BLACK OR MALE -=-=-=-=-=-=-=-=-=-=-=-=-=-=- =-=-=-=-=-==-=-=-=-=-=-=-=-=- =-=-=-=-=-=Subjective- Marlette was last seen on [id number] with the following pharmacotherapeutic plan: [X] No changes [ ] Discontinue: [ ] Initiate: [ ] Change the following: Treating Dx(s): MDD INTERIM HISTORY noted that pt was having difficulties w/ connecting to C appt; thus, appt was conducted via TELE. reports to be doing well. mentions that he had recently been working towardsa dress his knee pain. medications reviewed. states I feel pretty even keeled...not too high, and not too long. 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 states I want to uplift mu life...I part of my depression was working in [employer] for 25yrs. reports sleep has improved since last seeing this blog writer. endorses utilizing doxepin 3-4x/wk. agreed to completed PHQ9 screen, to be sent later today. Marlette reports the following regarding medications: -N--Y- [X][ ] Adherence/Compliance - reports that he may miss 1-2 doses of medications per week. agreed to utilizing am edication organizer [ ][X] Adverse Drug Reactions > diarrhea w/ celecoxib [ ][X] New OTC/Herbal/Supplement(s) - seamoss - black seed oil - creatine SUBSTANCE USE ASSESSMENT [ ] Denies All [ ] Nicotine [ ] Caffeine > 1/d [X] Alcohol > very infrequent d/t FH of alcoholism [X] Cannabis > slowly starting to smoke more cannabis a few puffs here and there, or edibles. 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 Chronic cough 2. Gout 3. Housing insecurity 4. Femoral acetabular impingement 5. Abdominal hernia 6. Ambulatory ECG normal 7. Pain in right hip joint 8. Acute bronchitis 9. Low back pain 10. Foot pain 11. Hyperglycemia 12. Benign hypertension 13. Multiple renal cysts 14. Screening for malignant neoplasm of colon done 15. Pain of bilateral knee regions 16. Nocturia 17. Dyspnea ALLERGIES: Patient has answered NKA Active Outpatient Medications (including Supplies): Active Outpatient Medications Status 1) ALBUTEROL 90MCG (CFC-F) 200D ORAL INHL INHALE 1 PUFF ACTIVE BY MOUTH ONCE DAILY NEEDED FOR BRONCHOSPASM 2) AMLODIPINE BESYLATE 10MG TAB TAKE ONE TABLET BY MOUTH ACTIVE (S) ONCE DAILY FOR BLOOD PRESSURE/HEART, DO NOT TAKE WITH GRAPEFRUIT JUICE 3) CELECOXIB 200MG CAP TAKE ONE CAPSULE BY MOUTH TWICE ACTIVE DAILY NEEDED FOR RHEUMATOID ARTHRITIS 4) COLCHICINE 0.6MG TAB TAKE 2 TABLETS AT ONSET BY MOUTH ACTIVE (S) ONE TIME AND TAKE 1 TABLET ONE HOUR LATER ONE TIME FOR GOUT [MAY ONLY REPEAT COURSE ONCE EVERY TWO WEEKS][TOTAL OF TWO COURSES IN 30 DAYS][6 TABLETS PER 30 DAYS] 5) DOXEPIN 3MG TAB TAKE ONE TABLET BY MOUTH AT BEDTIME ACTIVE NEEDED FOR INSOMNIA 6) HYALURONATE NA (DUROLANE)20MG/ML SYR 3ML INJECT 60MG ACTIVE INTRA-ARTICULAR ONE TIME OSTEOARTHRITIS OF THE KNEE 7) HYDROCHLOROTHIAZIDE 25MG TAB TAKE ONE-HALF TABLET BY ACTIVE MOUTH ONCE DAILY 8) LORATADINE 10MG TAB TAKE ONE TABLET BY MOUTH ONCE ACTIVE DAILY FOR ALLERGY 9) LOSARTAN 25MG TAB TAKE ONE TABLET BY MOUTH ONCE DAILY ACTIVE FOR BLOOD PRESSURE/HEART 10) MULTIVITAMIN CAP/TAB TAKE 1 TABLET BY MOUTH ONCE ACTIVE DAILY FOR VITAMIN SUPPLEMENTATION 11) SERTRALINE HCL 100MG TAB TAKE ONE-HALF TABLET BY ACTIVE MOUTH ONCE DAILY FOR MAJOR DEPRESSIVE DISORDER 12) SILDENAFIL CITRATE 100MG TAB TAKE ONE TABLET BY MOUTH ACTIVE DIRECTED TAKE 1 HOUR PRIOR TO SEXUAL ACTIVITY TRY ONE HALF PILL; IF ONE HALF DOES NOT WORK THEN MAY TAKE ONE WHOLE TABLET NEXT TIME; NEVER TAKE MORE THAN ONE TABLET AT ONE TIME Past psychiatric medications include the following: [X] Per CPRS: - sertraline (2023-current) - doxepin (2023-current) [ ] Per Patient: Vitals: Ht: 72 in [182.9 cm] (01/07/2023 13:49) Wt: 244 lb [110.68 kg] (01/06/2024 10:15) BMI: 33.2 BP: 101/80 (01/06/2024 10:15) HR: 76 (01/06/2024 10:15) Labs: CHEM 7 TREND LAB CUMULATIVE SELECTED Collection DT Spec GLUCOSE BUN CREATIN Sodium K+/Pot CL CO2 01/06/2024 09:55 SERUM 108 H 18 1.13 140 3.9 111 H 21 06/09/2023 08:32 SERUM 113 H 15 1.17 141 3.9 108 24 12/14/2022 10:25 SERUM 97 14 1.23 141 3.8 107 25 05/14/2022 09:39 SERUM 102 H 18 1.25 140 3.8 108 24 09/11/2021 12:15 SERUM 107 H 16 1.14 139 4.2 106 26 LIVER PANEL TREND Collection DT Spec AST ALT T BILI ALK TAMMIE T. PROT ALBUMIN 01/06/2024 09:55 SERUM 21 34 0.4 66 6.8 3.9 06/09/2023 08:32 SERUM 19 27 0.5 66 6.9 4.0 12/14/2022 10:25 SERUM 22 30 0.6 68 7.0 4.1 05/14/2022 09:39 SERUM 24 34 0.4 57 6.9 4.0 09/11/2021 12:15 SERUM 29 CBC TREND Collection DT Spec WBC RBC HGB HCT MCV MCH PLT 01/06/2024 09:55 BLOOD 3.76 L 5.35 14.6 43.7 81.7 L 27.3 261 11/17/2023 08:30 SYNOV 350 <3000 06/09/2023 08:32 BLOOD 4.38 L 5.42 15.0 44.9 82.8 27.7 265 12/14/2022 10:25 BLOOD 4.11 L 5.49 14.9 45.2 82.3 27.1 275 05/14/2022 09:39 BLOOD 4.02 L 5.27 14.4 43.2 82.0 27.3 248 LIPID PANEL TREND Collection DT Spec CHOL HDL CHO/HDL LDL-c TRIG 01/06/2024 09:55 SERUM 168 39 L 4.3 115 70 06/09/2023 08:32 SERUM 173 39 L 4.4 118 81 12/14/2022 10:25 SERUM 165 36 L 4.6 104 127 05/14/2022 09:39 SERUM 173 36 L 4.8 120 86 05/29/2021 10:34 SERUM 190 34 L 5.6 134 H 111 HEMOGLOBIN A1C TREND Collection DT Spec HGBA1c 01/06/2024 09:55 BLOOD 5.5 06/09/2023 08:32 BLOOD 5.8 H 12/14/2022 10:25 BLOOD 5.7 H 09/11/2021 12:15 BLOOD 5.9 H EK QTc = 433ms; NSR Estimated CrCl (based on IBW): ~73mL/min -=-=-=-=-=-=-=-=-=-=-=-=-=-=- =-=-=-=-=-==-=-=-=-=-=-=-=-=- =-=-=-=-=-=-=-=-=-=-=- ASSESSMENT The following review of all active psychotropic and PATCH WORKER-active agents is to ensure pharmacotherapy is evaluated for safety and efficacy as they relate to behaviorial and physiological changes and outcomes Pt is stable on the following regimen and requires no changes at this time MDD - sertraline 50mg daily - doxepin 3mg hs prn for sleep PLAN 1. Pharmacotherapy [X] No changes [ ] Discontinue: [ ] Initiate: [ ] Change the followin. Labs/tests: n/a 3. Consult(s) or Coordination of care: n/a 4. Other: n/a Education was provided to the regarding the above medication(s) risks, benefits, and alternatives; adverse drug reactions; expectations; and instructions for use. Findings/Plan was discussed with the patient and/or caregiver(s) whom provided verbal acknowledgement that the findings/plan was understood. The following counseling was specifically provided: [ ] Lab tests reviewed with patient [X] Instruction for management/treatment and/or follow-up [X] Importance of compliance with chosen treatment options [X] Risk Factor Reduction [ ] Other: RTC Interval: every 12weeks Next Apt: [id number] Marlette was provided blog writer's contact information and instructed to contact blog writer as needed for any changes to scheduling or concerns otherwise. Marlette is aware of actions to take if they feel unsafe, including calling the 's Crisis Line (#287); calling 911; or going to the nearest urgent care or emergency room. The is also aware of how to contact the clinic should the require additional services prior to the next appointment. Time spent on chart review, session, and documentation: 30minutes /es/ Dieudonne Meehan PharmD Clinical Pharmacist Practitioner Signed: 01/13/2024 10:54 01/17/2024 ADDENDUM STATUS: COMPLETED Assessments were sent to the via text/email. These assessments were completed by LUPILLO HONG on their own device on 01/14/2024 2:06:37 PM. PATIENT HEALTH QUESTIONNAIRE-9 (PHQ-9) The patient reported symptoms consistent with a major depressive episode. Patient reported being bothered by the following over the last 2 weeks: 1. Little interest or pleasure: More than half the days 2. Feeling down, depressed or hopeless: More than half the days 3. Trouble sleeping: More than half the days 4. Tired, low energy: More than half the days 5. Poor appetite, over-eating: More than half the days 6. Feelings of failure, guilt: More than half the days 7. Trouble concentrating: More than half the days 8. Motor retardation, agitation: Several Days 9. Thoughts better off /hurting self: Not at all PHQ-9 total score = 15 1-4 = minimal symptoms 5-9= mild symptoms 10-14= moderate symptoms 15-19= moderately severe symptoms 20-27= severe depressive symptoms The patient stated that the depressive symptoms made it somewhat difficult to work, take care of things at home, or get along with others. /ivone/ Dieudonne Everett. Aleena Meehan Clinical Pharmacist Practitioner Signed: 01/29/2024 22:37 DIEUDONNE MEEHNA [place] [facility]
--- OUTSIDE RECORDS SUMMARY | 2024-02-15 02:46 | XMS_ITS ---
Author Name [facility] Organization [facility] [place] Address [address] [place] [address] Care Team Providers Care Dye Maker Name Role Phone BOY DELONG Primary Care [...] RX PRESCRIPT ION HEALT H [facility] Mar 07, 2020 [facility] [id number] MARGARETH HONG RRYL PATIENT Selected Encounter This section includes the information on record at [place] for the Encounter. Date/Time Encounter Type Encounter Description Reason Pro vider Source Nov 11, 2023 12:00 AM Outpatient Encounter COMMUNITY CARE CONSULT IHE Encounter Template Text not used by [...] 20 appointments. The data comes from all [place] treatment facilities. Appointment Date/Time Appointment Type Appointme nt Facility Name Nov 14, 2023 03:00 PM [facility] [place] [facility] Nov 17, 2023 08:00 AM [facility] [place] [facility] Jan 06, 2024 10:00 AM [facility]UL[facility]ORY - MEDICINE [facility] Jan 10, 2024 11:15 AM AMBULATORY - NONE [facility] [place] [facility] Jan 10, 2024 11:30 AM AMBULATORY - NONE [facility] [place] [facility] Jan 13, 2024 10:00 AM AMBULATORY - PSYCHIATRY [facility] [place] [facility] Jan 13, 2024 01:00 PM [facility] MEDICINE [facility] [place] [facility] Feb 03, 2024 03:30 PM AMBULATORY - MEDICINE [facility] Feb 17, 2024 11:00 AM AMBULATORY - REHAB [facility] Mar 01, 2024 11:00 AM [facility] MEDICINE [facility] [place] [facility] Apr 06, 2024 10:00 AM AMBULATORY - [place]ATRY [place] [facility] [place] [facility] Lab Results: +/- 30 days of the encounter This section includes the Chemistry and Hematology Lab Results on record with [place] for the patient. Radiology Reports and Pathology Reports are provided separately, in subsequent sections. Lab Results This section contains the Chemistry/Hematology Results that were resulted 30 days before or 30 daysafter the date of the Encounter. Date/Time Source Result Type Result - Unit Interpretation Reference Range Comment Nov 17, 2023 08:30 AM [facility] [place] [facility] CULTURE,BODY FLUID PANEL(C.D.H) Specimen Type: SYNOVIAL FLUID Comment: Refer to CPRS: [place] Im[employer]. Display for Lab Results Ordering Provider: REESE MCFADDEN Report Released Date/Time: Nov 17, 2023 09:15 AM Reporting Lab: [place] [facility] [place] [facility] [address] [facility] [address] Performing Lab: [place] [facility] [place] [facility] [address] [facility] [address] GRAM STAIN(cdh) comment ANAEROBIC CULTURE(cdh) comment CULTURE,BODY FLUID(cdh) comment Nov 17, 2023 08:30 AM [facility] [place] [facility] GLUCOSE, SYNOVIAL (q) Specimen Type: SYNOVIAL FLUID Comment: Synovial fluid glucose values are equivalent to plasma values if obtained from a fasting patient. The difference between the plasma glucose and synovial fluid glucose value should be <10 mg/dL. Test Performed by [employer], [employer] [facility], [address] [place] [address] Rajesh Doss M.D., Ph.D., Director of Laboratories , CLIA [id number] TEST PERFORMED AT: , Ordering Provider: REESE MCFADDEN Report Released Date/Time: Nov 17, 2023 09:15 AM Reporting Lab: [facility] [address] [facility] [address] Performing Lab: [facility] [address] [address] GLUCOSE, SYNOVIAL (q) 145 mg/dL Nov 17, 2023 08:30 AM [facility] SYNOVIAL FLUID CRYSTALS PANEL Specimen Type: SYNOVIAL FLUID No comment entered. Ordering Provider: REESE MCFADDEN Report Released Date/Time: Nov 17, 2023 09:24 AM Reporting Lab: [facility] [address] [facility] [address] Performing Lab: [facility] [address] [facility] [address] CRYSTALS,BF Positive Negative MSU CRYSTALS,BF Present Negative MSU CRYSTAL EXTRA,BF Present Negative MSU CRYSTAL INTRA,BF Present Negative Nov 17, 2023 08:30 AM [facility] CELL COUNT (SYNOVIAL FLUID) Specimen Type: SYNOVIAL FLUID Comment: *CRYSTALS Not Performed: Nov 17, 2023@09:25 by [id number] *CONTRACT RUNNER Reason: see wrled [id number] for results Ordering Provider: REESE MCFADDEN Report Released Date/Time: Nov 17, 2023 09:15 AM Reporting Lab: [facility] [address] [facility] [address] Performing Lab: [facility] [address] [facility] [address] WBC 350 RBC <3000 COLOR Y VOLUME 2ml mL APPEARANCE C NUCLEATED CELL # comment 0-200 Encounter Notes: All associated encounter notes This section contains the clinical notes associated to the Encounter. Date/Time Encounter Note(s) Provider Source Nov 11, 2023 12:00 AM NONVA CONSULT: LOCAL TITLE: COMMUNITY CARE-CONSULT RESULT NOTE STANDARD TITLE: NONVA CONSULT DATE OF NOTE: NOV 11, 2023 ENTRY DATE: JAN 19, 2024@13:55:40 AUTHOR: LYNDA HUNTER EXP COSIGNER: URGENCY: STATUS: COMPLETED VistA Imaging - Scanned Document SCANNED DOCUMENT SIGNATURE NOT REQUIRED Electronically Filed: 01/19/2024 by: LYNDA GODOY [place] [facility]
--- OUTSIDE RECORDS SUMMARY | 2024-02-15 02:46 | XMS_ITS | Encounter Summary ---
Author Name [facility] [facility] [place] [facility] [place] Address [address] [place] [id number] Care Team Providers Care Head Orthopedic Team Physician Name Role Phone BOY DELONG Primary Care [...] RX PRESCRIPT ION [facility]ALT [facility] Mar 07, 2020 [facility] [id number] MARGARETH HONG RRYL PATIENT Selected Encounter This section includes the information on record at [place] for the Encounter. Date/Time Encounter Type Encounter Description Reason Provider Source Jun 10, 2023 11:30 AM OFFICE O/P EST MOD 30 MIN PRIMARY CARE/MEDICINE ICD-10-CM R73.9 Hyperglycemia, unspecified BOY DELONG Encounter Template Text not used by [place] Assessments - Encounter Diagnoses This section includes the primary and secondary diagnoses documented for the Encounter. Date/Time Primary/Secondary Diagnosis Diagnosis Name Provider Source Jun 10, 2023 01:02 PM PRIMARY Hyperglycemia, unspecified BOY DELONG Jun 10, 2023 01:02 PM SECONDARY Essential (primary) hypertension BOY DELONG Jun 10, 2023 01:02 PM SECONDARY Unspecified abdominal hernia without obstruction or gangrene BOY DELONG Plan of Treatment: Future Appointments (+ 6 months) and Future Tests (+/- 45 days) The Plan of Treatment section includes future care activities for the [facility] This section includes future appointments and future orders which are active, pending or scheduled. Future Appointments This section includes appointments that were scheduled to occur 6 months from the date of the Encounter, up to a maximum of 20 appointments. The data comes from all [facility]. Appointment Date/Time Appointment Type Appointme nt Facility Name Jun 17, 2023 08:00 AM AMBULATORY - PSYCHIATRY [facility] Jun 21, 2023 08:00 AM AMBULATORY - PSYCHIATRY [facility] Jun 24, 2023 11:00 AM AMBULATORY - NONE [facility] [place] [facility] Jun 24, 2023 11:30 AM AMBULATORY - REHAB MEDICIN E [facility] [place] [facility] July 22, 2023 01:00 PM AMBULATORY - PSYCHIATRY [facility] August 03, 2023 08:00 AM AMBULATORY - REHAB MEDICIN [facility] August 05, 2023 09:00 AM AMBULATORY - PSYCHIATRY [facility] [place] [facility] August 05, 2023 03:00 PM AMBULATORY - PSYCHIATRY [facility] [place] [facility] Aug 11, 2023 10:40 AM AMBULATORY - MEDICINE [facility] [place] [facility] Aug 19, 2023 10:00 AM AMBULATORY - REHAB MEDICIN [facility] Sep 09, 2023 09:30 AM AMBULATORY - PSYCHIATRY [facility] [place] [facility] Oct 14, 2023 09:30 AM AMBULATORY - PSYCHIATRY [facility] [place] [facility] Oct 28, 2023 10:00 AM AMBULATORY - PS[facility]IATRY [facility] [place] [facility] Nov 11, 2023 11:00 AM AMBULATORY - PSYCHIATRY [facility] [place] [facility] Nov 14, 2023 03:00 PM AMBULATORY - MEDICINE [facility] [place] [facility] Nov 17, 2023 08:00 AM AMBULATORY - MEDICINE [place] [facility] [place] [facility] Lab Results: +/- 30 days of the encounter This section includes the Chemistry and Hematology Lab Results on record with [place] for the patient. Radiology Reports and Pathology Reports are provided separately, in subsequent sections. Lab Results This section contains the Chemistry/Hematology Results that were resulted 30 days before or 30 daysafter the date of the Encounter. Date/Time Source Result Type Result - Unit Interpretation Reference Range Comment Jun 09, 2023 08:32 AM [facility] VITAMIN D (25-OH) Specimen Type: SERUM No comment entered. Ordering Provider: BOY DELONG Report Released Date/Time: Dec 14, 2022 10:56 AM Reporting Lab: [address] [address] Performing Lab: [address] [address] VITAMIN D (25-OH) 21 ng/mL 20-50 Jun 09, 2023 08:32 AM [facility] URINALYSIS Specimen Type: URINE Comment: If Glucose = >500 and Ketones are positive, please alert the Physician. Ordering Provider: BOY DELONG Report Released Date/Time: Dec 14, 2022 10:56 AM Reporting Lab: [address] [address] Performing Lab: [address] [address] UA COLOR Light-Yellow Yellow UA APPEARANCE Clear Clear UA GLUCOSE NEGATIVE mg/dL Negative UA KETONES NEGATIVE mg/dL Negative UA BLOOD NEGATIVE mg/dL Negative UA PROTEIN NEGATIVE mg/dL Negative UA NITRITE NEGATIVE mg/dL Negative UA BILIRUBIN NEGATIVE mg/dL Negative UA SPECIFIC GRAVITY 1.015 L 1.016-1.02 2 UA pH 5.5 5.0-9.0 UA UROBILINOGEN <2.0 mg/dL <2.0 UA LEUKOCYTE NEGATIVE Negative Jun 09, 2023 08:32 AM [facility] VITAMIN B12 Specimen Type: SERUM No comment entered. Ordering Provider: BOY DELONG Report Released Date/Time: Dec 14, 2022 10:56 AM Reporting Lab: [address] [address] Performing Lab: [address] [address] VITAMIN B12 580 pg/mL 200-900 Jun 09, 2023 08:32 AM [facility] CBC AND DIFF (AUTO) Specimen Type: BLOOD No comment entered. Ordering Provider: BOY DELONG Report Released Date/Time: Dec 14, 2022 10:56 AM Reporting Lab: [facility] [address] [facility] [address] Performing Lab: [facility] [address] [address] WBC 4.38 10*3/uL L 4.50-11.00 RBC 5.42 10*6/uL 4.23-5.66 HGB 15.0 g/dL 12.8-17 HCT 44.9 39.2-50.4 MCV 82.8 fL 82-99 MCHC 33.4 g/dL 30.8-35.1 PLT 265 10*3/uL 140-360 RDW-CV 12.8 12.0-16.0 Kimble, Abs 0.37 10*3/uL 0.30-1.10 MCH 27.7 pg 26.2-32.6 Neut % 56.0 43.7-75.8 Lymph % 31.7 14.0-42.3 Kimble % 8.4 5.1-13.7 Eos % 3.0 0.4-6.8 Baso % 0.7 0.1-2.0 Neut, Abs 2.45 10*3/uL 2.20-7.60 Lymph, Abs 1.39 10*3/uL 1.00-3.20 Eos, Abs 0.13 10*3/uL 0.03-0.44 Baso, Abs 0.03 10*3/uL 0.01-0.13 Immature Gran % 0.2 0.0-0.7 Immature Gran, Abs 0.01 10*3/uL 0.00-0.06 Jun 09, 2023 08:32 AM [facility] FERRITIN Specimen Type: SERUM No comment entered. Ordering Provider: BOY DELONG Report Released Date/Time: Dec 14, 2022 10:56 AM Reporting Lab: [facility] [address] [facility] [address] Performing Lab: [address] [address] FERRITIN 199 ng/mL 20-300 Jun 09, 2023 08:32 AM [facility] RETICULOCYTES Specimen Type: BLOOD No comment entered. Ordering Provider: BOY DELONG Report Released Date/Time: Dec 14, 2022 10:56 AM Reporting Lab: [facility] [address] [facility] [address] Performing [facility]: [facility] [address] [address] RETIC % 1.1 0.6-2.0 RETIC, ABS 61.8 10*3/uL 30.0-90.0 Ret-He % 31.3 27.9-42.0 Jun 09, 2023 08:32 AM [facility] HEMOGLOBIN A1C PANEL Specimen Type: BLOOD Comment: [...] Dec 14, 2022 10:56 AM Reporting Lab: [facility] [address] [address] Performing Lab: [facility] [address] HEMOGLOBIN A1C 5.8 H 4.0-5.6 Jun 09, 2023 08:32 AM [facility] TSH Specimen Type: SERUM No comment entered. Ordering Provider: BOY DELONG Report Released Date/Time: Dec 14, 2022 10:56 AM Reporting Lab: [facility] [address] [address] Performing Lab: [facility] [address] TSH 2.27 u[IU]/mL 0.35-5.00 Jun 09, 2023 08:32 AM [facility] PSA Specimen Type: SERUM No comment entered. Ordering Provider: BOY DELONG Report Released Date/Time: Dec 14, 2022 10:56 AM Reporting Lab: [facility] [address] Performing Lab: [facility] [address] PSA 2.13 ng/mL 0.00-4.00 Jun 09, 2023 08:32 AM [facility] LIVER FUNCTION Specimen Type: SERUM No comment entered. Ordering Provider: BOY DELONG Report Released Date/Time: Dec 14, 2022 10:56 AM Reporting Lab: [address] [address] Performing Lab: [address] [address] PROTEIN,TOTAL 6.9 g/dL 6.0-8.3 ALBUMIN 4.0 g/dL 3.5-5.0 ALKALINE PHOSPHATASE 66 U/L 40-150 AST 19 U/L 5-34 ALT 27 U/L BILIRUBIN, TOTAL 0.5 mg/dL 0.2-1.2 Jun 09, 2023 08:32 AM [facility] LIPID PANEL FASTING Specimen Type: SERUM No comment entered. Ordering Provider: BOY DELONG Report Released Date/Time: Dec 14, 2022 10:56 AM Reporting Lab: [address] [address] Performing Lab: [address] [address] CHOLESTEROL 173 mg/dL TRIGLYCERIDE 81 mg/dL 0-150 LDL calculated 118 mg/dL 0-129 CHOL/HDL 4.4 HDL CHOLESTEROL 39 mg/dL L 40-60 Jun 09, 2023 08:32 AM [facility] BASIC METABOLIC PANEL (fasting) Specime n Type: SERUM No comment entered. Ordering Provider: BOY DELONG Report Released Date/Time: Dec 14, 2022 10:56 AM Reporting Lab: [address] [address] Performing Lab: [address] [address] UREA NITROGEN 15 mg/dL 7-25 GLUCOSE 113 mg/dL H 65-100 SODIUM 141 mmol/L 135-145 POTASSIUM 3.9 mmol/L 3.5-5.0 CHLORIDE 108 mmol/L 100-110 CO2 24 meq/L 20-30 CREATININE, Serum 1.17 mg/dL 0.50-1.40 eGFR(CKD-EPI 2020) 71 mL/min >60 Jun 09, 2023 08:32 AM [facility] CALCIUM Specimen Type: SERUM No comment entered. Ordering Provider: BOY DELONG Report Released Date/Time: Dec 14, 2022 10:56 AM Reporting Lab: [facility] [address] [facility] [address] Performing Lab: [address] [address] CALCIUM 8.8 mg/dL 8.5-10.2 Jun 09, 2023 08:32 AM [facility] URIC ACID Specimen Type: SERUM No comment entered. Ordering Provider: BOY DELONG Report Released Date/Time: Dec 14, 2022 10:56 AM Reporting Lab: [address] [address] Performing Lab: [address] [address] URIC ACID 5.6 mg/dL 3.5-7.2 Vital Signs: All taken on the encounter date This section contains inpatient and outpatient Vital Signs collected on the date of the Encounter. Date/Time Temperature Pulse Blood Pressure Respiratory Rate SP02 Pain Height Weight Body Mass Index Source Jun 10, 2023 11:38 AM [address] [place] Jun 10, 2023 11:37 AM 96.8 73 134/84 239.4 33 [facility] Social History: Smoking Status (Most current) and Tobacco Use (All prior to encounter date) This section includes the most current, and the historical, smoking and tobacco- related health factors from the [place] facility where the Encounter took place. Current Smoking Status This section includes the most current smoking, or tobacco-related health factor, from the [place] facility where the Encounter took place. Date/Time Current Smoking Status Comment Matthew blankenship Jun 10, 2023 11:30 AM [place]-TOBACCO NEVER USED [facility] Tobacco Use History This section includes a history of the smoking, or tobacco-related health factors, that were collected on or before the date of the Encounter. The data comes from the [place] facility where the Encounter took place. Date/Time Smoking Status/Tobacco Use Comment F acility May 14, 2022 11:30 AM [place]-TOBACCO NEVER USED [facility] Mar 27, 2021 11:00 AM [facility]-TOBACCO NEVER USED [facility] Radiology Reports: +/- 30 days of the [...] the Encounter. The data comes from all [place] treatment facilities. Date/Time Radiology Report Provider Source Jun 24, 2023 10:59 AM ABDOMINAL ULTRASOUND: LUPILLO HONG [id number] -1960 M Exm Date: JUN 24, 2023@10:59 Req Phys: BOY DELONG Loc: CWM/SO/PACT 3 WH (Req'g Loc) Img Loc: ULTRASOUND Service: Unknown (Case [id number] COMPLETE) [employer] [facility] [place] ([place] Detailed) CPT:44974 Reason for Study: umbilical hernia Clinical History: need views before seeing karen trujillo Report Status: Verified Date Reported: JUN 25, 2023 Date Verified: JUN 25, 2023 Nuclear Engineer E-Sig: Report: [employer] [facility] [place] [[place]] Clinical History: Umbilical hernia. Comparison: None available. Technique: Ultrasound imaging of the umbilicus. A total of 3 Series and 9 Images are available for review. Please note that the radiologist could not be present at the examination as the study was read remotely. Findings: Targeted ultrasound was performed at the region of the umbilicus. There is a 4.5 x 4.6 x 2.6 cm oval mass in the underlying soft tissue which appears isoechoic to the adjacent fat. No internal vascularity is identified. Impression: 4.5 x 4.6 x 2.6 cm oval mass in the underlying soft tissue which appears isoechoic to the adjacent fat, suggesting a fat containing hernia. READING PHYSICIAN: Mikhail Andrews MD -[id number] 06/24/2023 23:15 PDT [facility] National Teleradiology Program [phone] (For Medical Practitioner Use Only) Attention Patients / Veterans: If you have questions or concerns about these test results, please contact your ordering provider or primary care team. Primary Diagnostic Code: NO ALERT REQUIRED Primary Interpreting Staff: RADIOLOGY,OUTSIDE SERVICE, Staff Physician / RADIOLOGY,OUTSIDE SERVICE [facility] [place] [facility] Encounter Notes: All associated encounter notes This section contains the clinical notes associated to the Encounter. Date/Time Encounter Note(s) Provider Source Jun 10, 2023 11:33 AM PHYSICIAN EVERARDO Cantu NOTE: LOCAL TITLE: LEANDER CARRASQUILLO STANDARD TITLE: PHYSICIAN BUSINESS OPERATIONS MANAGER NOTE DATE OF NOTE: JUN 10, 2023@11:33 ENTRY DATE: JUN 10, 2023@11:33:44 AUTHOR: BOY DELONG EXP COSIGNER: URGENCY: STATUS: COMPLETED S - routine re-eval O - coop A&Ox3 NAD W-N/H/D HEENT: benign NECK: no bruits not tender and no adeno LUNGS: resp full reg unlabored; CTA b/l COR: RRR, no M ABD: +umbilical hernia not tender or pustulant EXT: no LLE LABS: reviewed w/ pt A/P - 1) Hyperglycemic - FBS 113 and A1C 5.8 in JUN 28 DM II - CON: Guest Service Aide - may need meds later - eye and foot care - diet, wt 2) HTN - BP 134/84; HR 74 3) Renals Intact - eGFR 71 in JUN 28 - cont Cozaar - cont Norvasc - may use HCTZ as well 4) Arthridities, Low Back, Both Knees - uses Celebrex - saw Med Rehab MAY 28 for Knee Inj - he desires referral to PT 5) Umbilical Hernia - RADS: US of ABD - CON: GEN SURG after US Completed RTC JAN 28 - labs before Depression Screening: Perform PHQ-2 A PHQ-2 screen was performed. The score was 0 which is a negative screen for depression. Over the past two weeks, how often have you been bothered by the following problems? 1. Little interest or pleasure in doing things Not at all 2. Feeling down, depressed, or hopeless Not at all Homelessness/Food Insecurity Screen: In the past 2 months, have you been living in stable housing that you own, rent, or stay in as part of a household? Yes - Living in stable housing. Are you worried or concerned that in the next 2 months you may NOT have stable housing that you own, rent, or stay in as part of a household? No - Not worried about housing near future The [facility] reports the following: Within the past 12 months, you worried whether your food would run out before you got money to buy more. Never true Within the past 12 months, the food you bought just didn't last and you didn't have money to get more. Never true Medication Reconciliation: Outpatient: Has the patient been [...] non-VA/Herbal/OTC medications were entered into CPRS. Changes: nt - If there were any medications the patient should no longer take, they were discontinued. - The patient/caregiver was instructed to update this list, discard old lists, and take this list to the next appointment, whether with a VA or non-VA provider. Alcohol Use Screen (AUDIT-C): Alcohol Screen: SCREEN FOR ALCOHOL (AUDIT-C) An alcohol screening test (AUDIT-C) was negative (score=1). 1. How often did you have a drink containing alcohol in the past year? Consider a drink to be a 12 ounce can or bottle of regular beer, 8 ounces of malt liquor, a 5 ounce glass of table wine, or a 1.5 ounce shot of liquor (like scotch, gin, or vodka). Monthly or less 2. How many drinks containing alcohol did you have on a typical day when you were drinking in the past year? One or two drinks 3. How often did you have six or more drinks on one occasion in the past year? Never Depression Screening: Perform PHQ-2 A PHQ-2 screen was performed. The score was 0 which is a negative screen for depression. Over the past two weeks, how often have you been bothered by the following problems? 1. Little interest or pleasure in doing things Not at all 2. Feeling down, depressed, or hopeless Not at all Tobacco Use Screening: The patient has never used tobacco. /ivone/ BOY DELONG PA-C STAFF PHYSICIAN BUSINESS OPERATIONS MANAGER Signed: 06/10/2023 13:02 BOY DELONG
--- OUTSIDE RECORDS SUMMARY | 2024-02-15 02:46 | XMS_ITS ---
Author Name [facility] Address [address] [place] [address] Care Team Providers Care C.O.D. Biller Name Role Phone BOY DELONG Primary Care [...] RX PRESCRIPT ION HEALT H [facility] Mar 07, 2020 [facility] [id number] MARGARETH HONG RRYL PATIENT Selected Encounter This section includes the information on record at [place] for the Encounter. Date/Time Encounter Type Encounter Description Reason Pro vider Source Jun 02, 2023 09:34 AM Outpatient Encounter ADMIN PAT ACTIVTIES (MASNONCT) IHE Encounter Template Text not used by [place] Plan of Treatment: Future Appointments (+ 6 [...] 20 appointments. The data comes from all [place] treatment facilities. Appointment Date/Time Appointment Type Appointme nt Facility Name Jun 10, 2023 11:30 AM AMBULATORY - MEDICINE [facility] Jun 17, 2023 08:00 AM AMBULATORY - PSYCHIATRY [facility] Jun 21, 2023 08:00 AM AMBULATORY - PSYCHIATRY [facility] Jun 24, 2023 11:00 AM AMBULATORY - NONE [facility] [place] Jun 24, 2023 11:30 AM AMBULATORY - [facility]HAB MEDICIN [facility] [place] [facility] July 22, 2023 01:00 PM AMBULATORY - PSYCHIATRY [facility] August 03, 2023 08:00 AM AMBULATORY - REHAB MEDICIN E [place] August 05, 2023 09:00 AM AMBULATORY - [facility]IATRY [facility] [place] [facility] August 05, 2023 03:00 PM AMBULATORY - PSYCHIATRY [facility] [place] [facility] Aug 11, 2023 10:40 AM AM[facility]UL[facility] MEDICINE [facility] [place] [facility] Aug 19, 2023 10:00 AM AMBULATORY - REHAB MEDICIN E [place] Sep 09, 2023 09:30 AM AMBULATORY - PS[facility]CHIATRY [facility] [place] [facility] Oct 14, 2023 09:30 AM AMBULATORY - PS[facility]CHIATRY [facility] [place] [facility] Oct 28, 2023 10:00 AM AMBULATORY - PS[facility]CHIATRY [facility] [place] [facility] Nov 11, 2023 11:00 AM AMBULATORY - PS[facility]CHIATRY [facility] [place] [facility] Nov 14, 2023 03:00 PM AMBULATORY - MEDICINE [facility] [place] [facility] Nov 17, 2023 08:00 AM AMBULATORY - MEDICINE [facility] [place] [facility] Lab Results: +/- 30 days of the encounter This section includes the Chemistry and Hematology Lab Results on record with [place] for the patient. Radiology Reports and Pathology Reports are provided separately, in subsequent sections. Lab Results This section contains the Chemistry/Hematology Results that were resulted 30 days before or 30 daysafter the date of the Encounter. Date/Time Source Result Type Result - Unit Interpretation Reference Range Comment Jun 09, 2023 08:32 AM [place] VITAMIN D (25-OH) Specimen Type: SERUM No comment entered. Ordering Provider: BOY DELONG Report Released Date/Time: Dec 14, 2022 10:56 AM Reporting Lab: [address] [address] Performing Lab: [address] [address] VITAMIN D (25-OH) 21 ng/mL 20-50 Jun 09, 2023 08:32 AM [place] URINALYSIS Specimen Type: URINE Comment: If Glucose = >500 and Ketones are positive, please alert the Physician. Ordering Provider: BOY DELONG Report Released Date/Time: Dec 14, 2022 10:56 AM Reporting Lab: [address] [address] Performing Lab: [address] [address] UA COLOR Light-Yellow Yellow UA APPEARANCE Clear Clear UA GLUCOSE NEGATIVE mg/dL Negative UA KETONES NEGATIVE mg/dL Negative UA BLOOD NEGATIVE mg/dL Negative UA PROTEIN NEGATIVE mg/dL Negative UA NITRITE NEGATIVE mg/dL Negative UA BILIRUBIN NEGATIVE mg/dL Negative UA SPECIFIC GRAVITY 1.015 L 1.016-1.02 2 UA pH 5.5 5.0-9.0 UA UROBILINOGEN <2.0 mg/dL <2.0 UA LEUKOCYTE NEGATIVE Negative Jun 09, 2023 08:32 AM [place] VITAMIN B12 Specimen Type: SERUM No comment entered. Ordering Provider: BOY DELONG Report Released Date/Time: Dec 14, 2022 10:56 AM Reporting Lab: [address] [address] Performing Lab: [address] [address] VITAMIN B12 580 pg/mL 200-900 Jun 09, 2023 08:32 AM [place] CBC AND DIFF (AUTO) Specimen Type: BLOOD No comment entered. Ordering Provider: BOY DELONG Report Released Date/Time: Dec 14, 2022 10:56 AM Reporting Lab: [address] [address] Performing Lab: [address] [address] WBC 4.38 10*3/uL L 4.50-11.00 RBC 5.42 10*6/uL 4.23-5.66 HGB 15.0 g/dL 12.8-17 HCT 44.9 39.2-50.4 MCV 82.8 fL 82-99 MCHC 33.4 g/dL 30.8-35.1 PLT 265 10*3/uL 140-360 RDW-CV 12.8 12.0-16.0 Haines, Abs 0.37 10*3/uL 0.30-1.10 MCH 27.7 pg 26.2-32.6 Neut % 56.0 43.7-75.8 Lymph % 31.7 14.0-42.3 Haines % 8.4 5.1-13.7 Eos % 3.0 0.4-6.8 Baso % 0.7 0.1-2.0 Neut, Abs 2.45 10*3/uL 2.20-7.60 Lymph, Abs 1.39 10*3/uL 1.00-3.20 Eos, Abs 0.13 10*3/uL 0.03-0.44 Baso, Abs 0.03 10*3/uL 0.01-0.13 Immature Gran % 0.2 0.0-0.7 Immature Gran, Abs 0.01 10*3/uL 0.00-0.06 Jun 09, 2023 08:32 AM [place] FERRITIN Specimen Type: SERUM No comment entered. Ordering Provider: BOY DELONG Report Released Date/Time: Dec 14, 2022 10:56 AM Reporting Lab: [address] [address] Performing Lab: [address] [address] FERRITIN 199 ng/mL 20-300 Jun 09, 2023 08:32 AM [place] RETICULOCYTES Specimen Type: BLOOD No comment entered. Ordering Provider: BOY DELONG Report Released Date/Time: Dec 14, 2022 10:56 AM Reporting Lab: [address] [address] Performing Lab: [address] [address] RETIC % 1.1 0.6-2.0 RETIC, ABS 61.8 10*3/uL 30.0-90.0 Ret-He % 31.3 27.9-42.0 Jun 09, 2023 08:32 AM [place] HEMOGLOBIN A1C PANEL Specimen Type: BLOOD Comment: [...] Dec 14, 2022 10:56 AM Reporting Lab: [facility] [place] [address] [address] Performing Lab: [facility]USE[address] [address] HEMOGLOBIN A1C 5.8 H 4.0-5.6 Jun 09, 2023 08:32 AM [place] TSH Specimen Type: SERUM No comment entered. Ordering Provider: BOY DELONG Report Released Date/Time: Dec 14, 2022 10:56 AM Reporting Lab: [facility] [place] [facility] [address] [facility] [address] Performing Lab: [facility] TRN [facility]ITAL[facility] [address] [address] TSH 2.27 u[IU]/mL 0.35-5.00 Jun 09, 2023 08:32 AM [place] PSA Specimen Type: SERUM No comment entered. Ordering Provider: BOY DELONG Report Released Date/Time: Dec 14, 2022 10:56 AM Reporting Lab: [facility] [place] [facility] [address] [facility] [address] Performing Lab: [facility]ITALTRN [facility]ITALCHUSETS [address] [address] PSA 2.13 ng/mL 0.00-4.00 Jun 09, 2023 08:32 AM [place] LIVER FUNCTION Specimen Type: SERUM No comment entered. Ordering Provider: BOY DELONG Report Released Date/Time: Dec 14, 2022 10:56 AM Reporting Lab: [place] [facility] [address] [address] Performing Lab: [address] [address] PROTEIN,TOTAL 6.9 g/dL 6.0-8.3 ALBUMIN 4.0 g/dL 3.5-5.0 ALKALINE PHOSPHATASE 66 U/L 40-150 AST 19 U/L 5-34 ALT 27 U/L BILIRUBIN, TOTAL 0.5 mg/dL 0.2-1.2 Jun 09, 2023 08:32 AM [place] LIPID PANEL FASTING Specimen Type: SERUM No comment entered. Ordering Provider: BOY DELONG Report Released Date/Time: Dec 14, 2022 10:56 AM Reporting Lab: [address] [address] Performing Lab: [address] [address] CHOLESTEROL 173 mg/dL TRIGLYCERIDE 81 mg/dL 0-150 LDL calculated 118 mg/dL 0-129 CHOL/HDL 4.4 HDL CHOLESTEROL 39 mg/dL L 40-60 Jun 09, 2023 08:32 AM [place] BASIC METABOLIC PANEL (fasting) Specime n Type: SERUM No comment entered. Ordering Provider: BOY DELONG Report Released Date/Time: Dec 14, 2022 10:56 AM Reporting Lab: [address] [address] Performing Lab: [address] [address] UREA NITROGEN 15 mg/dL 7-25 GLUCOSE 113 mg/dL H 65-100 SODIUM 141 mmol/L 135-145 POTASSIUM 3.9 mmol/L 3.5-5.0 CHLORIDE 108 mmol/L 100-110 CO2 24 meq/L 20-30 CREATININE, Serum 1.17 mg/dL 0.50-1.40 eGFR(CKD-EPI 2020) 71 mL/min >60 Jun 09, 2023 08:32 AM [place] CALCIUM Specimen Type: SERUM No comment entered. Ordering Provider: BOY DELONG Report Released Date/Time: Dec 14, 2022 10:56 AM Reporting Lab: [address] [address] Performing Lab: [facility] [address] [facility] [address] CALCIUM 8.8 mg/dL 8.5-10.2 Jun 09, 2023 08:32 AM [place] URIC ACID Specimen Type: SERUM No comment entered. Ordering Provider: BOY DELONG Report Released Date/Time: Dec 14, 2022 10:56 AM Reporting Lab: [facility] [address] [facility] [address] Performing Lab: [address] [address] URIC ACID 5.6 mg/dL 3.5-7.2 Radiology Reports: [...] the Encounter. The data comes from all [facility] facilities. 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 Comparison: None [...] containing hernia. READING PHYSICIAN: Mikhail Andrews MD -[id number] 06/24/2023 23:15 PDT [facility] National Teleradiology Program [phone] (For Medical Practitioner Use Only) Attention Patients / Veterans: If you have questions or concerns about these test results, please contact your ordering provider or primary care team. Primary Diagnostic Code: NO ALERT REQUIRED Primary Interpreting Staff: RADIOLOGY,OUTSIDE SERVICE, Staff Physician / RADIOLOGY,OUTSIDE SERVICE [facility] [place] [facility] Encounter Notes: All associated encounter notes This section contains the clinical notes associated to the Encounter. Date/Time Encounter Note(s) Provider Source Jun 02, 2023 09:34 AM ADMINISTRATIVE NOT E: LOCAL TITLE: CCC: SCHEDULING ADMINISTRATION STANDARD TITLE: ADMINISTRATIVE NOTE DATE OF NOTE: JUN 02, 2023@09:34:48 ENTRY DATE: JUN 02, 2023@09:34:48 AUTHOR: JESSEE PABLO EXP COSIGNER: URGENCY: STATUS: COMPLETED CCC: SCHEDULING ADMINISTRATION Has ADDENDA Patient Demographics Patient Name: LUPILLO HONG Patient Primary Phone: [phone] Patient Primary [address] [address] [place] [address] Patient : 1960 Patient Age: 62 Call Back Number: [phone] Caller/Recipient Relation to Patient: Self Administrative Administrative Note Reason: Lab / Imaging Results Administrative Note Comments: 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 Thanks /ivone/ Imelda Lutz RN Registered Nurse (RN) Signed: 06/02/2023 10:06 JESSEE PABLO [facility]
--- OUTSIDE RECORDS SUMMARY | 2024-02-15 02:46 | XMS_ITS | Encounter Summary ---
Author Name [facility] Organization [facility] [place] Address [address] [place] [address] Care Team Providers Care Bulb Brander Name Role Phone BOY DELONG Primary Care [...] RX PRESCRIPT ION HEALT H NEW ENGL [facility] Mar 07, [address] [facility] [id number] MARAGRETH HONG RRYL PATIENT Selected Encounter This section includes the information on record at [place] for the Encounter. Date/Time Encounter Type Encounter Description Reason Pro vider Source Jan 24, 2024 08:49 AM Outpatient Encounter PRIMARY CARE/MEDICINE IHE Encounter Template Text not used by [place] Plan of Treatment: Future Appointments (+ 6 months) and Future Tests (+/- 45 days) The Plan of Treatment section includes future care activities for the patient from all [place] treatmentfacilities. This section includes future appointments and future orders which are active, pending or scheduled. Future Appointments This section includes appointments that were scheduled to occur 6 months from the date of the Encounter, up to a maximum of 20 appointments. The data comes from all [place] treatment facilities. Appointment Date/Time Appointment Type Appointme nt Facility Name Feb 03, 2024 03:30 PM AMBULATORY - MEDICINE [facility] Feb 17, 2024 11:00 AM AMBULATORY - REHAB MEDICIN E [place] Mar 01, 2024 11:00 AM AMBULATORY - MEDICINE [facility] Apr 06, 2024 10:00 AM [facility] May 14, 2024 10:30 AM AMBULATORY - MEDICINE [facility] Active, Pending, and Scheduled Orders This section includes a listing of several types of active, pending, and scheduled orders, including clinic medications orders, diagnostic test orders, procedure orders and consult orders; where the start date of the order is 45 days before the date of the Encounter or 45 days after the date of theEncounter. The data comes from all [place] treatment facilities. Test Date/Time Test Type Test Details Facility Name Jan 13, 2024 01:37 PM Consult Order COMMUNITY CARE-ORTHO SURGICAL Cons [facility] [facility] Feb 03, 2024 03:52 PM Consult Order PHYSICAL THERAPY/SPOPC OUTPT Cons [employer] [facility] [place] Feb 10, 2024 12:00 AM Laboratory - Chemistry Order RHEUMATOID FACTOR BLOOD (SST-SERUM) [facility] Feb 10, 2024 12:00 AM Laboratory - Chemistry Order MICHA SCREEN/TITER BLOOD (SST-GOLD) SERUM [facility] Feb 10, 2024 12:00 AM Laboratory - Chemistry Order HLA-B27 (QU) BLOOD (OJAQS-AiJlc-OHGBW) [facility] Feb 10, 2024 12:00 AM Laboratory - Chemistry Order C REACTIVE PROTEIN HS (WROX) BLOOD (SST-SERUM) [facility] Feb 10, 2024 12:00 AM Laboratory - Chemistry Order SED RATE, AUTOMATED BLOOD (LAV-BLOOD) [facility] Lab Results: +/- 30 days of the encounter This section includes the Chemistry and Hematology Lab Results on record with [place] for the patient. Radiology Reports and Pathology Reports are provided separately, in subsequent sections. Lab Results This section contains the Chemistry/Hematology Results that were resulted 30 days before or 30 daysafter the date of the Encounter. Date/Time Source Result Type Result - Unit Interpretation Reference Range Comment Jan 06, 2024 10:11 AM [facility] MICROALBUMIN CREATININE RATIO PANEL Spe cimen Type: URINE No comment entered. Ordering Provider: BOY DELONG Report Released Date/Time: Nov 23, 2023 08:33 AM Reporting Lab: [address] [address] Performing Lab: [address] [address] MICROALBUMIN/C REATININE RATIO 13.8 mg/g 0-29.9 MICROALBUMIN,Q UANTITATIVE 2.5 mg/dL RR UNAVAIL CREATININE URINE 180.82 mg/dL Jan 06, 2024 10:11 AM [facility] URINALYSIS Specimen Type: URINE Comment: If Glucose = >500 and Ketones are positive, please alert the Physician. Ordering Provider: BOY DELONG Report Released Date/Time: Nov 23, 2023 08:33 AM Reporting Lab: [address] [address] Performing Lab: [address] [address] UA COLOR Light-Yellow Yellow UA APPEARANCE Clear Clear UA GLUCOSE Normal mg/dL Negative UA KETONES NEGATIVE mg/dL Negative UA BLOOD NEGATIVE mg/dL Negative UA PROTEIN 10 mg/dL Negative UA NITRITE NEGATIVE mg/dL Negative UA BILIRUBIN NEGATIVE mg/dL Negative UA SPECIFIC GRAVITY 1.024 H 1.016-1.022 UA pH 5.5 5.0-9.0 UA UROBILINOGEN Normal mg/dL <2.0 UA LEUKOCYTE NEGATIVE Negative Jan 06, 2024 09:55 AM [place] CALCIUM Specimen Type: SERUM No comment entered. Ordering Provider: BOY DELONG Report Released Date/Time: Nov 23, 2023 08:33 AM Reporting Lab: [address] [address] Performing Lab: [address] [address] CALCIUM 9.0 mg/dL 8.5-10.2 Jan 06, 2024 09:55 AM [place] URIC ACID Specimen Type: SERUM No comment entered. Ordering Provider: BOY DELONG Report Released Date/Time: Nov 23, 2023 08:33 AM Reporting Lab: [address] [address] Performing Lab: [facility] [address] [facility] [address] URIC ACID 5.7 mg/dL 3.5-7.2 Jan 06, 2024 09:55 AM [place] BASIC METABOLIC PANEL (fasting) Specime n Type: SERUM No comment entered. Ordering Provider: BOY DELONG Report Released Date/Time: Nov 23, 2023 08:33 AM Reporting Lab: [facility] [address] [facility] [address] Performing Lab: [address] [address] UREA NITROGEN 18 mg/dL 7-25 GLUCOSE 108 mg/dL H 65-100 SODIUM 140 mmol/L 135-145 POTASSIUM 3.9 mmol/L 3.5-5.0 CHLORIDE 111 mmol/L H 100-110 CO2 21 meq/L 20-30 CREATININE, Serum 1.13 mg/dL 0.50-1.40 eGFR(CKD-EPI 2020) 74 mL/min >60 Jan 06, 2024 09:55 AM [place] LIPID PANEL FASTING Specimen Type: SERUM No comment entered. Ordering Provider: BOY DELONG Report Released Date/Time: Nov 23, 2023 08:33 AM Reporting Lab: [address] [address] Performing Lab: [address] [address] CHOLESTEROL 168 mg/dL TRIGLYCERIDE 70 mg/dL 0-150 LDL calculated 115 mg/dL 0-129 CHOL/HDL 4.3 HDL CHOLESTEROL 39 mg/dL L 40-60 Jan 06, 2024 09:55 AM [place] LIVER FUNCTION Specimen Type: SERUM No comment entered. Ordering Provider: BOY DELONG Report Released Date/Time: Nov 23, 2023 08:33 AM Reporting Lab: [address] [address] Performing Lab: [address] [address] PROTEIN,TOTAL 6.8 g/dL 6.0-8.3 ALBUMIN 3.9 g/dL 3.5-5.0 ALKALINE PHOSPHATASE 66 U/L 40-150 AST 21 U/L 5-34 ALT 34 U/L BILIRUBIN, TOTAL 0.4 mg/dL 0.2-1.2 Jan 06, 2024 09:55 AM [place] VITAMIN D (25-OH) Specimen Type: SERUM No comment entered. Ordering Provider: BOY DELONG Report Released Date/Time: Nov 23, 2023 08:33 AM Reporting Lab: [facility] [address] Performing Lab: [facility] [address] VITAMIN D (25-OH) 23 ng/mL 20-50 Jan 06, 2024 09:55 AM [place] FERRITIN Specimen Type: SERUM No comment entered. Ordering Provider: BOY DELONG Report Released Date/Time: Nov 23, 2023 08:33 AM Reporting Lab: [facility] [address] [address] Performing Lab: [facility] [address] [address] FERRITIN 214 ng/mL 20-300 Jan 06, 2024 09:55 AM [place] VITAMIN B12 Specimen Type: SERUM No comment entered. Ordering Provider: BOY DELONG Report Released Date/Time: Nov 23, 2023 08:33 AM Reporting Lab: [facility] [address] [address] Performing Lab: [address] [address] VITAMIN B12 636 pg/mL 200-900 Jan 06, 2024 09:55 AM [place] PSA Specimen Type: SERUM No comment entered. Ordering Provider: BOY DELONG Report Released Date/Time: Nov 23, 2023 08:33 AM Reporting Lab: [facility] [address] Performing Lab: [facility] [address] [address] PSA 1.09 ng/mL 0.00-4.00 Jan 06, 2024 09:55 AM [place] HEMOGLOBIN A1C PANEL Specimen Type: BLOOD Comment: [...] Nov 23, 2023 08:33 AM Reporting Lab: [address] [address] Performing Lab: [address] [address] HEMOGLOBIN A1C 5.5 4.0-5.6 Jan 06, 2024 09:55 AM [place] TSH Specimen Type: SERUM No comment entered. Ordering Provider: BOY DELONG Report Released Date/Time: Nov 23, 2023 08:33 AM Reporting Lab: [address] [address] Performing Lab: [address] [address] TSH 3.01 u[IU]/mL 0.35-5.00 Jan 06, 2024 09:55 AM [place] CBC AND DIFF (AUTO) Specimen Type: BLOOD No comment entered. Ordering Provider: BOY DELONG Report Released Date/Time: Nov 23, 2023 08:33 AM Reporting Lab: [address] [address] Performing Lab: [address] [address] WBC 3.76 10*3/uL L 4.50-11.00 RBC 5.35 [...] 0.0 0.0-0.0 NRBC, ABS 0.00 10*3/uL 0.00-0.00 Radiology Reports: +/- 30 days of the [...] the Encounter. The data comes from all [place] treatment facilities. Date/Time Radiology Report Provider Source Jan 10, 2024 11:27 AM KNEE 3 VIEWS (LEFT): LUPILLO HONG [id number] -1960 M Ex Date: JAN 10, 2024@11:27 Req Phys: BOY DELONG Loc: CWM/SO/PACT 3 WH (Req'g Loc) Img Loc: [facility] 1 Service: Unknown [facility] [place] [address] (Case [id number] COMPLETE) KNEE 3 VIEWS (LEFT) (RAD Detailed) CPT:36004 Reason for Study: left knee pain Clinical History: any OA or joint erosions? did have gout L knee Report Status: Verified Date Reported: JAN 10, 2024 Date Verified: JAN 10, 2024 Multiple Spindle Screw Machine Operator E-Sig: Report: KNEE 3 VIEWS (LEFT) COMPARISON: [...] the right knee demonstrates severe medial and [id number] lateral tibiofemoral compartment joint degeneration, similar to [...] to prior. READING PHYSICIAN: Karon Blount M.D. -[phone] 01/10/2024 11:58 EST [facility] National Teleradiology Program [phone] (For Medical Practitioner Use Only) Attention Patients / Veterans: If you have questions or concerns about these test results, please contact your ordering provider or primary care team. Primary Diagnostic Code: NO ALERT REQUIRED Primary Interpreting Staff: RADIOLOGY,OUTSIDE SERVICE, Staff Physician / RADIOLOGY,OUTSIDE SERVICE [facility] Jan 10, 2024 11:[address] MAXILLOFACIAL W/O CONT: GELYLUPILLOJoey REIS [id number] -1960 M [facility] Date: JAN 10, 2024@11:15 Req Phys: BOY DELONG Loc: CWM/SO/PACT 3 WH (Req'g Loc) Img Loc: [facility]/CT Service: Unknown [facility] [place], [place] [address] (Case 85 COMPLETE) CT MAXILLOFACIAL W/O CONT (CT Detailed) CPT:43408 Reason for Study: post nasal drip Clinical History: always cleasring thraot Report Status: Verified Date Reported: JAN 10, 2024 Date Verified: JAN 10, 2024 Multiple Spindle Screw Machine Operator E-Sig: Report: MAXILLOFACIAL CT WITHOUT IV CONTRAST/CT OF THE PARANASAL SINUSES WITHOUT IV CONTRAST: INDICATION: Post nasal drip. Patient reportedly always clearing throat. TECHNIQUE: Volumetric CT acquisition through the maxillofacial structures/paranasal sinuses, with axial, coronal and sagittal reformats, was performed at the local [place] facility. 159 images were received by the [place] National Teleradiology Program (NTP) for interpretation. RADIATION [...] commentary as above. READING PHYSICIAN: Boy Sun -[phone] 01/10/2024 16:06 [facility] National Teleradiology Program [phone] (For Medical Practitioner Use Only) Attention Patients / Veterans: If you have questions or concerns about these test results, please contact your ordering provider or primary care team. Primary Diagnostic Code: NO ALERT REQUIRED Primary Interpreting Staff: RADIOLOGY,OUTSIDE SERVICE, Staff Physician / RADIOLOGY,OUTSIDE SERVICE [facility] Jan 10, 2024 11:[address] THORAX W/O CONT: JORDAN HONGJoey REIS [id number] -1960 M Ex Date: JAN 10, 2024@11:15 Req Phys: BOY DELONG Loc: CWM/SO/PACT 3 WH (Req'g Loc) Img Loc: [facility]/CT Service: [place] [address] (Case 84 COMPLETE) CT THORAX W/O CONT (CT Detailed) CPT:54808 Reason for Study: chest tightness Clinical History: post nasal drip coughing echo and ekg of heart neg for cardiac pathology back in may 2023 any signs interstitial lung disease? Report Status: Verified Date Reported: JAN 10, 2024 Date Verified: JAN 10, 2024 Multiple Spindle Screw Machine Operator E-Sig: Report: CT OF THE CHEST WITHOUT IV CONTRAST INDICATION: Chest tightness, post nasal drip, coughing. Assess for signs of interstitial lung disease. TECHNIQUE: Volumetric CT acquisition through the chest, with axial, coronal and sagittal reformats, was performed at the local [place] facility. 1194 images were received by the [place] National Teleradiology Program (NTP) for interpretation. RADIATION [...] as detailed above. READING PHYSICIAN: Boy Sun -[phone] 01/10/2024 17:01 [facility] National Teleradiology Program [phone] (For Medical Practitioner Use Only) Attention Patients / Veterans: If you have questions or concerns about these test results, please contact your ordering provider or primary care team. Primary Diagnostic Code: SIGNIFICANT ABNORMALITY, ATTN NEEDED Primary Interpreting Staff: RADIOLOGY,OUTSIDE SERVICE, Staff Physician / RADIOLOGY,OUTSIDE SERVICE [place] [facility] Encounter Notes: All associated encounter notes This section contains the clinical notes associated to the Encounter. Date/Time Encounter Note(s) Provider Source Jan 24, 2024 09:40 AM ADDENDUM: LOCAL TITLE: Addendum STANDARD TITLE: ADDENDUM DATE OF NOTE: JAN 24, 2024@09:40:57 ENTRY DATE: JAN 24, 2024@09:40:58 AUTHOR: TEJA LUTZ EXP COSIGNER: URGENCY: STATUS: COMPLETED PCP would like to discuss in person, please schedule with PCP /ivone/ Teja Lutz RN Registered Nurse (RN) Signed: 01/24/2024 09:41 Receipt Acknowledged By: 01/25/2024 09:08 /ivone/ JT MANUEL Advanced Product Marketing Coordinator ========= --- Original Document --- 01/24/24 PRIMARY CARE SECURE MESSAGING: ------Original Message -------- Sent: 01/23/2024 11:16 AM ET From: LUPILLO HONG To: Chelsea DELONG_PRIMARY CARE_SPO Subject: General:cat scan hello, i would like to find out the results from my recent cat scans /ivone/ JT MANUEL Advanced Product Marketing Coordinator Signed: 01/24/2024 08:49 01/24/2024 ADDENDUM STATUS: COMPLETED Adjustment Clerk called pt to R/S f/u 01/13/24 appt which pt cxl. Patient is requesting a telephone call (instead of a F2F appt) from PCP to discuss CT Scan results and Lab work done on 01/06/24 at time of routine appt. Adjustment Clerk stated this would be up to the PCP /ivone/ JT MANUEL Advanced Product Marketing Coordinator Signed: 01/24/2024 08:58 Receipt Acknowledged By: 01/24/2024 09:42 /barbara Lutz RN Registered Nurse (RN) 01/25/2024 ADDENDUM STATUS: UNSIGNED You may not VIEW this UNSIGNED Addendum. TEJA LUTZ [place] [facility] [place] [facility] Jan 24, 2024 08:55 AM ADDENDUM: LOCAL TITLE: Addendum STANDARD TITLE: ADDENDUM DATE OF NOTE: JAN 24, 2024@08:55:04 ENTRY DATE: JAN 24, 2024@08:55:04 AUTHOR: ANITA MANUEL EXP COSIGNER: URGENCY: STATUS: COMPLETED Adjustment Clerk called pt to R/S f/u 01/13/24 appt which pt cxl. Patient is requesting a telephone call (instead of a F2F appt) from PCP to discuss CT Scan results and Lab work done on 01/06/24 at time of routine appt. Adjustment Clerk stated this would be up to the PCP /ivone/ JT MANUEL Advanced Product Marketing Coordinator Signed: 01/24/2024 08:58 Receipt Acknowledged By: 01/24/2024 09:42 /es/ Teja Lutz RN Registered Nurse (RN) ========= --- Original Document --- 01/24/24 PRIMARY CARE SECURE MESSAGING: ------Original Message -------- Sent: 01/23/2024 11:16 AM ET From: LUPILLO HONG To: Breann DELONGPRIMARY CARE_SPOPC Subject: General:cat scan [facility], i would like to find out the results from my recent cat scans /ivone/ JT MANUEL Advanced Product Marketing Coordinator Signed: 01/24/2024 08:49 01/24/2024 ADDENDUM STATUS: COMPLETED PCP would like to discuss in person, please schedule with PCP /ivone/ Teja Lutz RN Registered Nurse (RN) Signed: 01/24/2024 09:41 Receipt Acknowledged By: * AWAITING SIGNATURE * JT MANUEL CHRISTIN E S [facility] [place] [facility] Jan 24, 2024 08:49 AM PRIMARY CARE SECUR E MESSAGING: LOCAL TITLE: PRIMARY CARE SECURE MESSAGING STANDARD TITLE: PRIMARY CARE SECURE MESSAGING DATE OF NOTE: JAN 24, 2024@08:49 ENTRY DATE: JAN 24, 2024@08:49:29 AUTHOR: ANITA MANUEL EXP COSIGNER: URGENCY: STATUS: COMPLETED PRIMARY CARE SECURE MESSAGING Has ADDENDA ------Original Message -------- Sent: 01/23/2024 11:16 AM ET From: LUPILLO HONG To: Breann DELONGPRIMARY CARE_SPOPC Subject: General:cat scan [facility], i would like to find out the results from my recent cat scans /ivone/ JT MANUEL Advanced Product Marketing Coordinator Signed: 01/24/2024 08:49 01/24/2024 ADDENDUM STATUS: COMPLETED Adjustment Clerk called pt to R/S f/u 01/13/24 appt which pt cxl. Patient is requesting a telephone call (instead of a F2F appt) from PCP to discuss CT Scan results and Lab work done on 01/06/24 at time of routine appt. Adjustment Clerk stated this would be up to the PCP /ivone/ JT MANUEL Advanced Product Marketing Coordinator Signed: 01/24/2024 08:58 Receipt Acknowledged By: 01/24/2024 09:42 /ivone/ Teja Lutz, RN Registered Nurse (RN) 01/24/2024 ADDENDUM STATUS: COMPLETED PCP would like to discuss in person, please schedule with PCP /ivone/ Teja Lutz, RN Registered Nurse (RN) Signed: 01/24/2024 09:41 Receipt Acknowledged By: 01/25/2024 09:08 /ivone/ JT MANUEL Advanced Product Marketing Coordinator 01/25/2024 ADDENDUM STATUS: COMPLETED Appt scheduled 02/03/24 /ivone/ JT MANUEL Advanced Product Marketing Coordinator Signed: 01/25/2024 09:08 ANITA MANUEL CNTRL [facility]ISLAINETRHaydee [facility]
--- OUTSIDE RECORDS SUMMARY | 2024-02-15 02:46 | XMS_ITS | Encounter Summary ---
Author Name [facility] Organization [facility] [place] Address [address] [place] [address] Care Team Providers Care Track Helper Name Role Phone BOY TRUONG Primary Care Provider Unavailabl e Insurance Providers: [...] RX PRESCRIPT ION HEALT H NEW ENGL [facility] Mar 07, 2020 [facility] [id number] MARGARETH HONG RRYL PATIENT Selected Encounter This section includes the information on record at [place] for the Encounter. Date/Time Encounter Type Encounter Description Reason Pro vider Source Jan 23, 2024 03:24 PM Outpatient Encounter PRIMARY CARE/MEDICINE IHE Encounter Template Text not used by [place] Plan of Treatment: Future Appointments (+ 6 months) and Future Tests (+/- 45 days) The Plan of Treatment section includes future care activities for the patient from all [place] treatmentfacilities. This section includes future appointments and future orders which are active, pending or scheduled. Future Appointments This section includes appointments that were scheduled to occur 6 months from the date of the Encounter, up to a maximum of 20 appointments. The data comes from all [place] treatment facilities. Appointment Date/Time Appointment Type Appointme nt Facility Name Feb 03, 2024 03:30 PM AMBULATORY [facility] MEDICINE [facility] Feb 17, 2024 11:00 AM AMBULATORY - REHAB MEDICIN [facility] Mar 01, 2024 11:00 AM [place] [facility] Apr 06, 2024 10:00 AM [facility] May 14, 2024 10:30 AM AMBULATORY - MEDICINE [facility] Active, Pending, and Scheduled Orders This section includes a listing of several types of active, pending, and scheduled orders, including clinic medications orders, diagnostic test orders, procedure orders and consult orders; where the start date of the order is 45 days before the date of the Encounter or 45 days after the date of theEncounter. The data comes from all [place] treatment facilities. Test Date/Time Test Type Test Details Facility Name Jan 13, 2024 01:37 PM Consult Order COMMUNITY CARE-[facility]THO SURGICAL Cons Handtools Rep[facility] Feb 03, 2024 03:52 PM Consult Order PHYSICAL THERAPY/SPOPC OUTPT Cons [facility] Feb 10, 2024 12:00 AM Laboratory - Chemistry Order RHEUMATOID FACTOR BLOOD (SST-SERUM) [facility] Feb 10, 2024 12:00 AM Laboratory - Chemistry Order MICHA SCREEN/TITER BLOOD (SST-GOLD) SERUM [facility] Feb 10, 2024 12:00 AM Laboratory - Chemistry Order HLA-B27 (QU) BLOOD (ZKHNR-KyDaq-KDGRB) [facility] Feb 10, 2024 12:00 AM Laboratory - Chemistry Order C REACTIVE PROTEIN HS (WROX) BLOOD (SST-SERUM) [facility] Feb 10, 2024 12:00 AM Laboratory - Chemistry Order SED RATE, AUTOMATED BLOOD (LAV-BLOOD) [facility] Lab Results: +/- 30 days of the encounter This section includes the Chemistry and Hematology Lab Results on record with [place] for the patient. Radiology Reports and Pathology Reports are provided separately, in subsequent sections. Lab Results This section contains the Chemistry/Hematology Results that were resulted 30 days before or 30 daysafter the date of the Encounter. Date/Time Source Result Type Result - Unit Interpretation Reference Range Comment Jan 06, 2024 10:11 AM [facility] MICROALBUMIN CREATININE RATIO PANEL Spe cimen Type: URINE No comment entered. Ordering Provider: BOY TRUONG Report Released Date/Time: Nov 23, 2023 08:33 AM Reporting Lab: [address] [address] Performing Lab: [address] [address] MICROALBUMIN/C REATININE RATIO 13.8 mg/g 0-29.9 MICROALBUMIN,Q UANTITATIVE 2.5 mg/dL RR UNAVAIL CREATININE URINE 180.82 mg/dL Jan 06, 2024 10:11 AM [facility] URINALYSIS Specimen Type: URINE Comment: If Glucose = >500 and Ketones are positive, please alert the Physician. Ordering Provider: BOY TRUONG Report Released Date/Time: Nov 23, 2023 08:33 AM Reporting Lab: [address] [address] Performing Lab: [address] [address] UA COLOR Light-Yellow Yellow UA APPEARANCE Clear Clear UA GLUCOSE Normal mg/dL Negative UA KETONES NEGATIVE mg/dL Negative UA BLOOD NEGATIVE mg/dL Negative UA PROTEIN 10 mg/dL Negative UA NITRITE NEGATIVE mg/dL Negative UA BILIRUBIN NEGATIVE mg/dL Negative UA SPECIFIC GRAVITY 1.024 H 1.016-1.022 UA pH 5.5 5.0-9.0 UA UROBILINOGEN Normal mg/dL <2.0 UA LEUKOCYTE NEGATIVE Negative Jan 06, 2024 09:55 AM [facility] URIC ACID Specimen Type: SERUM No comment entered. Ordering Provider: BOY TRUONG Report Released Date/Time: Nov 23, 2023 08:33 AM Reporting Lab: [address] [address] Performing Lab: [address] [address] URIC ACID 5.7 mg/dL 3.5-7.2 Jan 06, 2024 09:55 AM [facility] CALCIUM Specimen Type: SERUM No comment entered. Ordering Provider: BOY TRUONG Report Released Date/Time: Nov 23, 2023 08:33 AM Reporting Lab: [address] [address] Performing Lab: [facility] [address] [facility] [address] CALCIUM 9.0 mg/dL 8.5-10.2 Jan 06, 2024 09:55 AM [facility] BASIC METABOLIC PANEL (fasting) Specime n Type: SERUM No comment entered. Ordering Provider: BOY TRUONG Report Released Date/Time: Nov 23, 2023 08:33 AM Reporting Lab: [address] [address] Performing Lab: [address] [address] UREA NITROGEN 18 mg/dL 7-25 GLUCOSE 108 mg/dL H 65-100 SODIUM 140 mmol/L 135-145 POTASSIUM 3.9 mmol/L 3.5-5.0 CHLORIDE 111 mmol/L H 100-110 CO2 21 meq/L 20-30 CREATININE, Serum 1.13 mg/dL 0.50-1.40 eGFR(CKD-EPI 2020) 74 mL/min >60 Jan 06, 2024 09:55 AM [facility] LIVER FUNCTION Specimen Type: SERUM No comment entered. Ordering Provider: BOY TRUONG Report Released Date/Time: Nov 23, 2023 08:33 AM Reporting Lab: [address] [address] Performing Lab: [address] [address] PROTEIN,TOTAL 6.8 g/dL 6.0-8.3 ALBUMIN 3.9 g/dL 3.5-5.0 ALKALINE PHOSPHATASE 66 U/L 40-150 AST 21 U/L 5-34 ALT 34 U/L BILIRUBIN, TOTAL 0.4 mg/dL 0.2-1.2 Jan 06, 2024 09:55 AM [facility] LIPID PANEL FASTING Specimen Type: SERUM No comment entered. Ordering Provider: BOY TRUONG Report Released Date/Time: Nov 23, 2023 08:33 AM Reporting Lab: [address] [address] Performing Lab: [address] [address] CHOLESTEROL 168 mg/dL TRIGLYCERIDE 70 mg/dL 0-150 LDL calculated 115 mg/dL 0-129 CHOL/HDL 4.3 HDL CHOLESTEROL 39 mg/dL L 40-60 Jan 06, 2024 09:55 AM [facility] VITAMIN D (25-OH) Specimen Type: SERUM No comment entered. Ordering Provider: BOY TRUONG Report Released Date/Time: Nov 23, 2023 08:33 AM Reporting Lab: [facility] [address] [facility] [address] Performing Lab: [facility] [address] VITAMIN D (25-OH) 23 ng/mL 20-50 Jan 06, 2024 09:55 AM [facility] FERRITIN Specimen Type: SERUM No comment entered. Ordering Provider: BOY TRUONG Report Released Date/Time: Nov 23, 2023 08:33 AM Reporting Lab: [facility] [address] [address] Performing Lab: [facility] [address] [address] FERRITIN 214 ng/mL 20-300 Jan 06, 2024 09:55 AM [facility] VITAMIN B12 Specimen Type: SERUM No comment entered. Ordering Provider: BOY TRUONG Report Released Date/Time: Nov 23, 2023 08:33 AM Reporting Lab: [facility] [address] [address] Performing Lab: [address] [address] VITAMIN B12 636 pg/mL 200-900 Jan 06, 2024 09:55 AM [facility] PSA Specimen Type: SERUM No comment entered. Ordering Provider: BOY TRUONG Report Released Date/Time: Nov 23, 2023 08:33 AM Reporting Lab: [facility] [address] Performing Lab: [facility] [address] [address] PSA 1.09 ng/mL 0.00-4.00 Jan 06, 2024 09:55 AM [facility] HEMOGLOBIN A1C PANEL Specimen Type: BLOOD Comment: Values obtained from A1C measurements can vary. For atypical A1C assays, a reported value of 7.0 could actually be between 6.72 and 7.28 if measured by a reference method. A reported value of 9.0 could actually be between 8.73 and 9.27. Ref: http://www.ngs p.org/CAPdata. asp Ordering Provider: BOY TRUONG Report Released Date/Time: Nov 23, 2023 08:33 AM Reporting Lab: [address] [address] Performing Lab: [address] [address] HEMOGLOBIN A1C 5.5 4.0-5.6 Jan 06, 2024 09:55 AM [facility] TSH Specimen Type: SERUM No comment entered. Ordering Provider: BOY TRUONG Report Released Date/Time: Nov 23, 2023 08:33 AM Reporting Lab: [address] [address] Performing Lab: [address] [address] TSH 3.01 u[IU]/mL 0.35-5.00 Jan 06, 2024 09:55 AM [facility] CBC AND DIFF (AUTO) Specimen Type: BLOOD No comment entered. Ordering Provider: BOY TRUONG Report Released Date/Time: Nov 23, 2023 08:33 AM Reporting Lab: [address] [address] Performing Lab: [address] [address] WBC 3.76 10*3/uL L 4.50-11.00 RBC 5.35 [...] the Encounter. The data comes from all [place] treatment facilities. Date/Time Radiology Report Provider Source Jan 10, 2024 11:27 AM KNEE 3 VIEWS (LEFT): LUPILLO HONG [id number] -1960 M Ex Date: JAN 10, 2024@11:27 Req Phys: BOY TRUONG Loc: CWM/SO/PACT 3 WH (Req'g Loc) Img Loc: [facility] 1 Service: Unknown [place] [facility] [place] [address] (Case [id number] COMPLETE) KNEE 3 VIEWS (LEFT) (RAD Detailed) CPT:93203 Reason for Study: left knee pain Clinical History: any OA or joint erosions? did have gout L knee Report Status: Verified Date Reported: JAN 10, 2024 Date Verified: JAN 10, 2024 Checker Cashier E-Sig: Report: KNEE 3 VIEWS (LEFT) COMPARISON: [...] the right knee demonstrates severe medial and rfbr-bq-tgruekyt lateral tibiofemoral compartment joint degeneration, similar to [...] to prior. READING PHYSICIAN: Karon Blount M.D. -[id number] 01/10/2024 11:58 EST [facility] National Teleradiology Program [phone] (For Medical Practitioner Use Only) Attention Patients / Veterans: If you have questions or concerns about these test results, please contact your ordering provider or primary care team. Primary Diagnostic Code: NO ALERT REQUIRED Primary Interpreting Staff: RADIOLOGY,OUTSIDE SERVICE, Staff Physician / RADIOLOGY,OUTSIDE SERVICE [facility] Jan 10, 2024 11:[address] MAXILLOFACIAL W/O CONT: GELYLUPILLOJoey REIS [id number] -1960 M [facility] Date: JAN 10, 2024@11:15 Req Phys: BOY TRUONG Loc: CWM/SO/PACT 3 WH (Req'g Loc) Img Loc: [facility]/CT Service: Unknown [facility] [place], [place] [address] (Case [id number] COMPLETE) CT MAXILLOFACIAL W/O CONT (CT Detailed) CPT:58055 Reason for Study: post nasal drip Clinical History: always cleasring thraot Report Status: Verified Date Reported: JAN 10, 2024 Date Verified: JAN 10, 2024 Checker Cashier E-Sig: Report: MAXILLOFACIAL CT WITHOUT IV CONTRAST/CT OF THE PARANASAL SINUSES WITHOUT IV CONTRAST: INDICATION: Post nasal drip. Patient reportedly always clearing throat. TECHNIQUE: Volumetric CT acquisition through the maxillofacial structures/paranasal sinuses, with axial, coronal and sagittal reformats, was performed at the local [place] facility. 159 images were received by the [place] National Teleradiology Program (NTP) for interpretation. RADIATION [...] demonstrated. Other commentary as above. READING PHYSICIAN: oBy Sun -[phone] 01/10/2024 16:06 [facility] National Teleradiology Program [phone] (For Medical Practitioner Use Only) Attention Patients / Veterans: If you have questions or concerns about these test results, please contact your ordering provider or primary care team. Primary Diagnostic Code: NO ALERT REQUIRED Primary Interpreting Staff: RADIOLOGY,OUTSIDE SERVICE, Staff Physician / RADIOLOGY,OUTSIDE SERVICE [facility] Jan 10, 2024 11:[address] THORAX W/O CONT: JORDAN HONGJoey REIS [id number] -1960 M Ex Date: JAN 10, 2024@11:15 Req Phys: BOY TRUONG Loc: CWM/SO/PACT 3 WH (Req'g Loc) Img Loc: [facility]/CT Service: [place] [address] (Case 84 COMPLETE) CT THORAX W/O CONT (CT Detailed) CPT:61612 Reason for Study: chest tightness Clinical History: post nasal drip coughing echo and ekg of heart neg for cardiac pathology back in may 2023 any signs interstitial lung disease? Report Status: Verified Date Reported: JAN 10, 2024 Date Verified: JAN 10, 2024 Checker Cashier E-Sig: Report: CT OF THE CHEST WITHOUT IV CONTRAST INDICATION: Chest tightness, post nasal drip, coughing. Assess for signs of interstitial lung disease. TECHNIQUE: Volumetric CT acquisition through the chest, with axial, coronal and sagittal reformats, was performed at the local [place] facility. 1194 images were received by the [place] National Teleradiology Program (NTP) for interpretation. RADIATION [...] as detailed above. READING PHYSICIAN: Boy Sun -[phone] 01/10/2024 17:01 [facility] National Teleradiology Program [phone] (For Medical Practitioner Use Only) Attention Patients / Veterans: If you have questions or concerns about these test results, please contact your ordering provider or primary care team. Primary Diagnostic Code: SIGNIFICANT ABNORMALITY, ATTN NEEDED Primary Interpreting Staff: RADIOLOGY,OUTSIDE SERVICE, Staff Physician / RADIOLOGY,OUTSIDE SERVICE [place] [facility] Encounter Notes: All associated encounter notes This section contains the clinical notes associated to the Encounter. Date/Time Encounter Note(s) Provider Source Jan 23, 2024 03:24 PM LETTERS: LOCAL TITLE: PATIENT LETTER (T) STANDARD TITLE: LETTERS DATE OF NOTE: JAN 23, 2024@15:24 ENTRY DATE: JAN 23, 2024@15:24:24 AUTHOR: ANITA MANUEL EXP COSIGNER: URGENCY: STATUS: COMPLETED DEPARTMENT OF [facility] [place] Toll Free Number Primary Care Telephone Assistance can be reached at extension [phone] [facility] scheduling can be reached at extension [phone] [facility] scheduling can be reached at ext [phone] January 23, 2024 LUPILLO HONG [address], [place], [address] [place], Our goal at the [facility] is to provide you with quality medical care. Our records indicate that you cancelled an appointment January 13, 2024 with your Primary Care Provider Boy Truong PA-C. Please call to reschedule this appointment at: [phone] Tuesday through Tuesday 8:00 am to 4:00 pm. We look forward to seeing you at your next appointment. Sincerly, Office Staff for: BOY TRUONG Primary Care Provider [facility] [address] [place] [address] T [phone] F [phone] Sincerely, Your Primary Care Team [facility] [address] [address] [place] [address] [facility] [address] [place] [address] [place] [address] [phone] [facility] [address] [facility] [place] [address] [place] [address] JT MANUEL [facility]
--- OUTSIDE RECORDS SUMMARY | 2024-02-15 02:46 | XMS_ITS ---
Author Name [facility] [place] [facility] [place] [facility] [place] Address [address] [place] [address] Care Team Providers Care Concert Pianist Name Role Phone BOY DELONG Primary Care [...] OPTUM RX PRESCRIPT ION HEALT H [facility] Mar 07, 2020 [facility] [id number] MARGARETH HONG RRYL PATIENT Selected Encounter This section includes the information on record at [place] for the Encounter. Date/Time Encounter Type Encounter Description Reason Provider Source Jan 13, 2024 01:00 PM OFFICE O/P EST LOW 20 MIN PM&RS PHYSICIAN ICD-10-CM M17.0 Bilateral primary osteoarthritis of knee NNAMDI MCFADDEN E Encounter Template Text not used by [place] Assessments - Encounter Diagnoses This section includes the primary and secondary diagnoses documented for the Encounter. Date/Time Primary/Secondary Diagnosis Diagnosis Name Provider Source Jan 13, 2024 01:46 PM PRIMARY Bilateral primary osteoarthritis of knee NNAMDI MCFADDEN [place] [facility] [place] [facility] Jan 13, 2024 01:46 PM SECONDARY Gout, unspecified NNAMDI MCFADDEN [facility] Plan of Treatment: Future Appointments (+ 6 months) and Future Tests (+/- 45 days) The Plan of Treatment section includes future care activities for the patient [facility] [place] [facility] This section includes future appointments and future orders which are active, pending or scheduled. Future Appointments This section includes appointments that were scheduled to occur 6 months from the date of the Encounter, up to a maximum of 20 appointments. The data comes from all [facility]. Appointment Date/Time Appointment Type Appointme nt Facility Name Feb 03, 2024 03:30 PM AMBULATORY - MEDICINE [facility] Feb 17, 2024 11:00 AM AMBULATORY - REHAB MEDICIN [facility] Mar 01, 2024 11:00 AM AMBULATORY - MEDICINE [facility] Apr 06, 2024 10:00 AM AMBULATORY - PSYCHIATRY [facility] May 14, 2024 10:30 AM AMBULATORY - MEDICINE [facility] Active, Pending, and Scheduled Orders This section includes a listing of several types of active, pending, and scheduled orders, including clinic medications orders, diagnostic test orders, procedure orders and consult orders; where the start date of the order is 45 days before the date of the Encounter or 45 days after the date of theEncounter. The data comes from all [facility]. Test Date/Time Test Type Test Details Facility Name Jan 13, 2024 01:37 PM Consult Order COMMUNITY CARE-ORTHO SURGICAL Cons Web Assistant's [facility] Feb 03, 2024 03:52 PM Consult Order PHYSICAL THERAPY/SPOPC OUTPT Cons Web Assistant's Choice [facility] Feb 10, 2024 12:00 AM Laboratory - Chemistry Order RHEUMATOID FACTOR BLOOD (SST-SERUM) [facility] Feb 10, 2024 12:00 AM Laboratory - Chemistry Order MICHA SCREEN/TITER BLOOD (SST-GOLD) SERUM [facility] Feb 10, 2024 12:00 AM Laboratory - Chemistry Order HLA-B27 (QU) BLOOD (WOXFU-[id number]) [facility] Feb 10, 2024 12:00 AM Laboratory - Chemistry Order C REACTIVE PROTEIN HS (WROX) BLOOD (SST-SERUM) [facility] Feb 10, 2024 12:00 AM Laboratory - Chemistry Order SED RATE, AUTOMATED BLOOD (LAV-BLOOD) [facility] Lab Results: +/- 30 days of the encounter This section includes the Chemistry and Hematology Lab Results on record with [place] for the patient. Radiology Reports and Pathology Reports are provided separately, in subsequent sections. Lab Results This section contains the Chemistry/Hematology Results that were resulted 30 days before or 30 daysafter the date of the Encounter. Date/Time Source Result Type Result - Unit Interpretation Reference Range Comment Jan 06, 2024 10:11 AM [facility] MICROALBUMIN CREATININE RATIO PANEL Spe cimen Type: URINE No comment entered. Ordering Provider: BOY DELONG Report Released Date/Time: Nov 23, 2023 08:33 AM Reporting Lab: [address] [address] Performing Lab: [address] [address] MICROALBUMIN/C REATININE RATIO 13.8 mg/g 0-29.9 MICROALBUMIN,Q UANTITATIVE 2.5 mg/dL RR UNAVAIL CREATININE URINE 180.82 mg/dL Jan 06, 2024 10:11 AM [facility] URINALYSIS Specimen Type: URINE Comment: If Glucose = >500 and Ketones are positive, please alert the Physician. Ordering Provider: BOY DELONG Report Released Date/Time: Nov 23, 2023 08:33 AM Reporting Lab: [address] [address] Performing Lab: [address] [address] UA COLOR Light-Yellow Yellow UA APPEARANCE Clear Clear UA GLUCOSE Normal mg/dL Negative UA KETONES NEGATIVE mg/dL Negative UA BLOOD NEGATIVE mg/dL Negative UA PROTEIN 10 mg/dL Negative UA NITRITE NEGATIVE mg/dL Negative UA BILIRUBIN NEGATIVE mg/dL Negative UA SPECIFIC GRAVITY 1.024 H 1.016-1.022 UA pH 5.5 5.0-9.0 UA UROBILINOGEN Normal mg/dL <2.0 UA LEUKOCYTE NEGATIVE Negative Jan 06, 2024 09:55 AM [facility] URIC ACID Specimen Type: SERUM No comment entered. Ordering Provider: BOY DELONG Report Released Date/Time: Nov 23, 2023 08:33 AM Reporting Lab: [address] [address] Performing Lab: [facility] [address] [facility] [address] URIC ACID 5.7 mg/dL 3.5-7.2 Jan 06, 2024 09:55 AM [facility] CALCIUM Specimen Type: SERUM No comment entered. Ordering Provider: BOY DELONG Report Released Date/Time: Nov 23, 2023 08:33 AM Reporting Lab: [facility] [address] [facility] [address] Performing Lab: [facility] [address] [address] CALCIUM 9.0 mg/dL 8.5-10.2 Jan 06, 2024 09:55 AM [facility] BASIC METABOLIC PANEL (fasting) Specime n Type: SERUM No comment entered. Ordering Provider: BOY DELONG Report Released Date/Time: Nov 23, 2023 08:33 AM Reporting Lab: [facility] [address] [address] Performing Lab: [facility] [address] [address] UREA NITROGEN 18 mg/dL 7-25 GLUCOSE 108 mg/dL H 65-100 SODIUM 140 mmol/L 135-145 POTASSIUM 3.9 mmol/L 3.5-5.0 CHLORIDE 111 mmol/L H 100-110 CO2 21 meq/L 20-30 CREATININE, Serum 1.13 mg/dL 0.50-1.40 eGFR(CKD-EPI 2020) 74 mL/min >60 Jan 06, 2024 09:55 AM [facility] LIVER FUNCTION Specimen Type: SERUM No comment entered. Ordering Provider: BOY DELONG Report Released Date/Time: Nov 23, 2023 08:33 AM Reporting Lab: [address] [address] Performing Lab: [address] [address] PROTEIN,TOTAL 6.8 g/dL 6.0-8.3 ALBUMIN 3.9 g/dL 3.5-5.0 ALKALINE PHOSPHATASE 66 U/L 40-150 AST 21 U/L 5-34 ALT 34 U/L BILIRUBIN, TOTAL 0.4 mg/dL 0.2-1.2 Jan 06, 2024 09:55 AM [facility] LIPID PANEL FASTING Specimen Type: SERUM No comment entered. Ordering Provider: BOY DELONG Report Released Date/Time: Nov 23, 2023 08:33 AM Reporting Lab: [facility] [address] [facility] [address] Performing Lab: [facility] [address] [facility] [address] CHOLESTEROL 168 mg/dL TRIGLYCERIDE 70 mg/dL 0-150 LDL calculated 115 mg/dL 0-129 CHOL/HDL 4.3 HDL CHOLESTEROL 39 mg/dL L 40-60 Jan 06, 2024 09:55 AM [facility] VITAMIN D (25-OH) Specimen Type: SERUM No comment entered. Ordering Provider: BOY DELONG Report Released Date/Time: Nov 23, 2023 08:33 AM Reporting Lab: [facility] [address] [facility] [address] Performing Lab: [facility]ITAL[facility]ETS [address] [address] VITAMIN D (25-OH) 23 ng/mL 20-50 Jan 06, 2024 09:55 AM [facility] FERRITIN Specimen Type: SERUM No comment entered. Ordering Provider: BOY DELONG Report Released Date/Time: Nov 23, 2023 08:33 AM Reporting Lab: [facility] [address] [facility] [address] Performing Lab: [facility]USE[address] [address] FERRITIN 214 ng/mL 20-300 Jan 06, 2024 09:55 AM [facility] VITAMIN B12 Specimen Type: SERUM No comment entered. Ordering Provider: BOY DELONG Report Released Date/Time: Nov 23, 2023 08:33 AM Reporting Lab: [facility] [address] [facility] [address] Performing Lab: [facility]USE[address] [address] VITAMIN B12 636 pg/mL 200-900 Jan 06, 2024 09:55 AM [facility] PSA Specimen Type: SERUM No comment entered. Ordering Provider: BOY DELONG Report Released Date/Time: Nov 23, 2023 08:33 AM Reporting Lab: [facility] [address] [address] Performing Lab: [address] [address] PSA 1.09 ng/mL 0.00-4.00 Jan 06, 2024 09:55 AM [facility] HEMOGLOBIN A1C PANEL Specimen Type: BLOOD Comment: [...] 23, 2023 08:33 AM Reporting Lab: [address] [address] Performing Lab: [address] [address] HEMOGLOBIN A1C 5.5 4.0-5.6 Jan 06, 2024 09:55 AM [facility] TSH Specimen Type: SERUM No comment entered. Ordering Provider: BOY EDLONG Report Released Date/Time: Nov 23, 2023 08:33 AM Reporting Lab: [address] [address] Performing Lab: [address] [address] TSH 3.01 u[IU]/mL 0.35-5.00 Jan 06, 2024 09:55 AM [facility] CBC AND DIFF (AUTO) Specimen Type: BLOOD No comment entered. Ordering Provider: BOY DELONG Report Released Date/Time: Nov 23, 2023 08:33 AM Reporting Lab: [address] [address] Performing Lab: [address] [address] WBC 3.76 10*3/uL L 4.50-11.00 RBC 5.35 [...] Jan 13, 2024 01:11 PM 124/70 3 [place] [facility] [place] [facility] [facility] Radiology Reports: +/- 30 days of the [...] the Encounter. The data comes from all [place] treatment facilities. Date/Time Radiology Report Provider Source Jan 10, 2024 11:27 AM KNEE 3 VIEWS (LEFT): LUPILLO HONG [id number] -1960 M Exm Date: JAN 10, 2024@11:27 Req Phys: BOY DELONG [place] Loc: CWM/SO/PACT 3 WH (Req'g Loc) Img Loc: [facility]/BUILDING 1 Service: Unknown [place] [facility] [place] [place] [facility] [place] [address] (Case 87 COMPLETE) KNEE 3 VIEWS (LEFT) (RAD Detailed) CPT:88188 Reason for Study: left knee pain Clinical History: any OA or joint erosions? did have gout L knee Report Status: Verified Date Reported: JAN 10, 2024 Date Verified: JAN 10, 2024 Compliance Technician E-Sig: Report: KNEE 3 VIEWS (LEFT) COMPARISON: [...] the right knee demonstrates severe medial and [id number] lateral tibiofemoral compartment joint degeneration, similar to [...] to prior. READING PHYSICIAN: Karon Blount M.D. -[phone] 01/10/2024 11:58 EST [facility] PumpUpiology Program [phone] (For Medical Practitioner Use Only) Attention Patients / Veterans: If you have questions or concerns about these test results, please contact your ordering provider or primary care team. Primary Diagnostic Code: NO ALERT REQUIRED Primary Interpreting Staff: RADIOLOGY,OUTSIDE SERVICE, Staff Physician / RADIOLOGY,OUTSIDE SERVICE [facility] Jan 10, 2024 11:[address] MAXILLOFACIAL W/O CONT: LUPILLO HONG [id number] -1960 M Exm Date: JAN 10, 2024@11:15 Req Phys: BOY DELONG Loc: CWM/SO/PACT 3 WH (Req'g Loc) Img Loc: NHM/CT Service: Unknown [facility] [place] [address] (Case 85 COMPLETE) CT MAXILLOFACIAL W/O CONT (CT Detailed) CPT:69052 Reason for Study: post nasal drip Clinical History: always cleasring thraot Report Status: Verified Date Reported: JAN 10, 2024 Date Verified: JAN 10, 2024 Compliance Technician E-Sig: Report: MAXILLOFACIAL CT WITHOUT IV CONTRAST/CT OF THE PARANASAL SINUSES WITHOUT IV CONTRAST: INDICATION: Post nasal drip. Patient reportedly always clearing throat. TECHNIQUE: Volumetric CT acquisition through the maxillofacial structures/paranasal sinuses, with axial, coronal and sagittal reformats, was performed at the local [place] facility. 159 images were received by the [place] National Teleradiology Program (NTP) for interpretation. RADIATION [...] commentary as above. READING PHYSICIAN: Boy Sun -[phone] 01/10/2024 16:06 [facility] [employer] Teleradiology Program [phone] (For Medical Practitioner Use Only) Attention Patients / Veterans: If you have questions or concerns about these test results, please contact your ordering provider or primary care team. Primary Diagnostic Code: NO ALERT REQUIRED Primary Interpreting Staff: RADIOLOGY,OUTSIDE SERVICE, Staff Physician / RADIOLOGY,OUTSIDE SERVICE [facility] Jan 10, 2024 11:[address] THORAX W/O CONT: LUPILLO HONG [id number] -1960 M Exm Date: JAN 10, 2024@11:15 Req Phys: BOY DELONG Loc: CWM/SO/PACT 3 WH (Req'g Loc) Img Loc: NHM/CT Service: Unknown [facility] [place] [address] (Case 84 COMPLETE) CT THORAX W/O CONT (CT Detailed) CPT:13562 Reason for Study: chest tightness Clinical History: post nasal drip coughing echo and ekg of heart neg for cardiac pathology back in may 2023 any signs interstitial lung disease? Report Status: Verified Date Reported: JAN 10, 2024 Date Verified: JAN 10, 2024 Compliance Technician E-Sig: Report: CT OF THE CHEST WITHOUT IV CONTRAST INDICATION: Chest tightness, post nasal drip, coughing. Assess for signs of interstitial lung disease. TECHNIQUE: Volumetric CT acquisition through the chest, with axial, coronal and sagittal reformats, was performed at the local [place] facility. 1194 images were received by the [place] National Teleradiology Program (NTP) for interpretation. RADIATION [...] as detailed above. READING PHYSICIAN: Boy Sun -[phone] 01/10/2024 17:01 [facility] National Teleradiology Program [phone] (For Medical Practitioner Use Only) Attention Patients / Veterans: If you have questions or concerns about these test results, please contact your ordering provider or primary care team. Primary Diagnostic Code: SIGNIFICANT ABNORMALITY, ATTN NEEDED Primary Interpreting Staff: RADIOLOGY,OUTSIDE SERVICE, Staff Physician / RADIOLOGY,OUTSIDE SERVICE [place] [facility] [place] [facility] Encounter Notes: All associated encounter notes This section contains the clinical notes associated to the Encounter. Date/Time Encounter Note(s) Provider Source Jan 13, 2024 01:38 PM PHYSICAL MEDICINE REHAB PHYSICIAN NOTE: LOCAL TITLE: PM&R FOLLOW-UP STANDARD TITLE: PHYSICAL MEDICINE REHAB PHYSICIAN NOTE DATE OF NOTE: JAN 13, 2024@13:38 ENTRY DATE: JAN 13, 2024@13:39:04 AUTHOR: JAM MCFADDEN COSIGNER: URGENCY: STATUS: COMPLETED PM&R FOLLOW-UP Has ADDENDA JAN 13, 2024 LUPILLO HONG is a 63 y/o MALE who presents today for follow-up of bilateral knee pain left greater than right. has significant gouty arthritis. He has taken colchicine with good effect but he continues to have a great deal of pain and stiffness in the knees. He does use Celebrex 200 mg twice daily but still has difficult time moving the knees. His range of motion continues to be more limited. His knee pain is daily. He is finding himself quite frustrated. He had suboptimal results with corticosteroid and we elected to trial Durolane. The first time seem to be helpful but the second time he did not see the same relief in fact he felt that his knee pain increased. It has been slowly getting better. He did not have any large effusion or pseudo septic reaction. Pain levels currently are 3 out of 10 but his functional levels are grossly limited. He is able to walk but rather rigidly. Physical therapy has not been terribly helpful. He is at the point that he is considering joint replacement. PMHx as obtained from Chart: Active problems [...] bilateral knee regions 16. Nocturia 17. Dyspnea Soc Hx: MARITAL STATUS - NEVER [facility] FROM Oct TO Oct ALL: Patient has [...] eye contact. Appropriate affect and social interaction. HEENT: Normocephalic, atraumatic. CVS: Extremities warm/well perfused. No lower extremity edema. PULM: Breathing unlabored, no accessory muscle use. ABD: Nondistended. EXTREMITIES: No cyanosis or edema of bilateral upper and lower extremities. MUSCULOSKELETAL EXAM: There is some femoral acetabular impingement at the hip but pain does not radiate into the knee. He has limitation in range of motion to 100 degrees of flexion with terminal extension. There is not a large effusion present. No Elias's cyst present. He has crepitus in the parapatellar region tenderness in the medial joint line. Varus alignment. No instability. Calves are soft and nontender. Diagnostic Studies: X-rays from 01/10/2024 were reviewed demonstrating severe tricompartmental arthritis. ASSESSMENT/PLAN: Patient is a previously very active 63-year-old male with tricompartmental arthritis of the knees bilaterally. Left is greater than right. Have encouraged him to avoid further injections for the time being and will refer to Dr. Urbina who had operated on the left knee in the past. He will be considered for total joint replacement. We did discuss [facility] of [facility] versus [facility] [place] would like to stay within the community. Does have family that will be available to assist in rehabilitation. FOLLOW-UP: Potential risks and side effects of any medication(s) prescribed today was reviewed with . Patient had many excellent questions, which I answered to the best of my ability and to patient's apparent satisfaction. MDM: minutes which includes reviewing records, evaluating patient, documenting in medical record, educating, counseling and coordinating care. /barbara ESPINALJessica Signed: 01/13/2024 13:46 01/13/2024 ADDENDUM STATUS: COMPLETED total time spent 25 minutes /barbara ESPINALP Signed: 01/13/2024 13:48 JAM MCFADDEN [facility]
--- OUTSIDE RECORDS SUMMARY | 2024-02-15 02:46 | XMS_ITS | Encounter Summary ---
Author Name [facility] [place] Organization [facility] [place] Address [address] [place] [address] Care Team Providers Care Outsole Flexer Name Role Phone BOY DELONG Primary Care [...] RX PRESCRIPT ION HEALT H [facility] Mar 07, 2020 [facility] [id number] MARGARETH HONG RRYL PATIENT Selected Encounter This section includes the information on record at [place] for the Encounter. Date/Time Encounter Type Encounter Description Reason Pro vider Source Jun 10, 2023 11:38 AM Outpatient Encounter PRIMARY CARE/MEDICINE IHE Encounter Template Text not used by [place] Plan of Treatment: Future Appointments (+ 6 months) and Future Tests (+/- 45 days) The Plan of Treatment section includes future care activities for the patient from all [place] treatmentfacilities. This section includes future appointments and [...] 17, 2023 08:00 AM AMBULATORY - PSYCHIATRY [facility] Jun 21, 2023 08:00 AM AMBULATORY - PSYCHIATRY [facility] Jun 24, 2023 11:00 AM AM[facility]UL[facility]ORY [facility] NONE [facility] [place] [facility] Jun 24, 2023 11:30 AM AMBULATORY - REHAB MEDICIN [facility] [place] [facility] July 22, 2023 01:00 PM AMBULATORY - PSYCHIATRY [facility] August 03, 2023 08:00 AM AMBULATORY - REHAB MEDICIN E [place] August 05, 2023 09:00 AM AMBULATORY [facility]AT[facility] [place] [facility] August 05, 2023 03:00 PM AMBULATORY [facility] PS[facility]IATRY [facility] [place] [facility] Aug 11, 2023 10:40 AM AM[facility]ULATORY [facility]ICINE [facility] [place] [facility] Aug 19, 2023 10:00 AM AMBULATORY - REHAB MEDICIN E [place] Sep 09, 2023 09:30 AM AMBULATORY - PS[facility]IAT[facility] [place] [facility] Oct 14, 2023 09:30 AM AMBULATORY [facility] PS[facility]AT[facility] [place] [facility] Oct 28, 2023 10:00 AM AMBULATORY - PS[facility]IATRY [facility] [place] [facility] Nov 11, 2023 11:00 AM AMBULATORY - PS[facility]CHIATRY [facility] [place] [facility] Nov 14, 2023 03:00 PM AMBULATORY - MEDICINE [facility] [place] [facility] Nov 17, 2023 08:00 AM AMBULATORY - MEDICINE [place] [facility] [place] [facility] Lab Results: +/- 30 days of the encounter This section includes the Chemistry and Hematology Lab Results on record with [place] for the patient. Radiology Reports and Pathology Reports are provided separately, in subsequent sections. Lab Results This section contains the Chemistry/Hematology Results that were resulted 30 days before or 30 daysafter the date of the Encounter. Date/Time Source Result Type Result - Unit Interpretation Reference Range Comment Jun 09, 2023 08:32 AM [place] VITAMIN D (25-OH) Specimen Type: SERUM No comment entered. Ordering Provider: BOY DELONG Report Released Date/Time: Dec 14, 2022 10:56 AM Reporting Lab: [facility] [place] [address] [address] Performing Lab: [address] [address] VITAMIN D (25-OH) 21 ng/mL 20-50 Jun 09, 2023 08:32 AM [place] URINALYSIS Specimen Type: URINE Comment: If Glucose = >500 and Ketones are positive, please alert the Physician. Ordering Provider: BOY DELONG Report Released Date/Time: Dec 14, 2022 10:56 AM Reporting Lab: [address] [address] Performing Lab: [address] [address] UA COLOR Light-Yellow Yellow UA APPEARANCE Clear Clear UA GLUCOSE NEGATIVE mg/dL Negative UA KETONES NEGATIVE mg/dL Negative UA BLOOD NEGATIVE mg/dL Negative UA PROTEIN NEGATIVE mg/dL Negative UA NITRITE NEGATIVE mg/dL Negative UA BILIRUBIN NEGATIVE mg/dL Negative UA SPECIFIC GRAVITY 1.015 L 1.016-1.02 2 UA pH 5.5 5.0-9.0 UA UROBILINOGEN <2.0 mg/dL <2.0 UA LEUKOCYTE NEGATIVE Negative Jun 09, 2023 08:32 AM [place] VITAMIN B12 Specimen Type: SERUM No comment entered. Ordering Provider: BOY DELONG Report Released Date/Time: Dec 14, 2022 10:56 AM Reporting Lab: [address] [address] Performing Lab: [address] [address] VITAMIN B12 580 pg/mL 200-900 Jun 09, 2023 08:32 AM [place] CBC AND DIFF (AUTO) Specimen Type: BLOOD No comment entered. Ordering Provider: BOY DELONG Report Released Date/Time: Dec 14, 2022 10:56 AM Reporting Lab: [address] [address] Performing Lab: [address] [address] WBC 4.38 10*3/uL L 4.50-11.00 RBC 5.42 10*6/uL 4.23-5.66 HGB 15.0 g/dL 12.8-17 HCT 44.9 39.2-50.4 MCV 82.8 fL 82-99 MCHC 33.4 g/dL 30.8-35.1 PLT 265 10*3/uL 140-360 RDW-CV 12.8 12.0-16.0 Finney, Abs 0.37 10*3/uL 0.30-1.10 MCH 27.7 pg 26.2-32.6 Neut % 56.0 43.7-75.8 Lymph % 31.7 14.0-42.3 Finney % 8.4 5.1-13.7 Eos % 3.0 0.4-6.8 Baso % 0.7 0.1-2.0 Neut, Abs 2.45 10*3/uL 2.20-7.60 Lymph, Abs 1.39 10*3/uL 1.00-3.20 Eos, Abs 0.13 10*3/uL 0.03-0.44 Baso, Abs 0.03 10*3/uL 0.01-0.13 Immature Gran % 0.2 0.0-0.7 Immature Gran, Abs 0.01 10*3/uL 0.00-0.06 Jun 09, 2023 08:32 AM [place] FERRITIN Specimen Type: SERUM No comment entered. Ordering Provider: BOY DELONG Report Released Date/Time: Dec 14, 2022 10:56 AM Reporting Lab: [address] [address] Performing Lab: [address] [address] FERRITIN 199 ng/mL 20-300 Jun 09, 2023 08:32 AM [place] RETICULOCYTES Specimen Type: BLOOD No comment entered. Ordering Provider: BOY DELONG Report Released Date/Time: Dec 14, 2022 10:56 AM Reporting Lab: [address] [address] Performing Lab: [address] [address] RETIC % 1.1 0.6-2.0 RETIC, ABS 61.8 10*3/uL 30.0-90.0 Ret-He % 31.3 27.9-42.0 Jun 09, 2023 08:32 AM [place] HEMOGLOBIN A1C PANEL Specimen Type: BLOOD Comment: [...] Dec 14, 2022 10:56 AM Reporting Lab: [facility] [place] [facility] [address] [facility] [address] Performing Lab: [facility] [place] [address] [address] HEMOGLOBIN A1C 5.8 H 4.0-5.6 Jun 09, 2023 08:32 AM [place] TSH Specimen Type: SERUM No comment entered. Ordering Provider: BOY DELONG Report Released Date/Time: Dec 14, 2022 10:56 AM Reporting Lab: [facility] [place] [facility] [address] [facility] [address] Performing Lab: [facility] [place] [facility] [address] [facility] [address] TSH 2.27 u[IU]/mL 0.35-5.00 Jun 09, 2023 08:32 AM [place] PSA Specimen Type: SERUM No comment entered. Ordering Provider: BOY DELONG Report Released Date/Time: Dec 14, 2022 10:56 AM Reporting Lab: [facility] [place] [facility] [address] [facility] [address] Performing Lab: [facility] [place] [address] [address] PSA 2.13 ng/mL 0.00-4.00 Jun 09, 2023 08:32 AM [place] LIVER FUNCTION Specimen Type: SERUM No comment entered. Ordering Provider: BOY DELONG Report Released Date/Time: Dec 14, 2022 10:56 AM Reporting Lab: [facility] [place] [address] [address] Performing Lab: [place] [facility] [address] [address] PROTEIN,TOTAL 6.9 g/dL 6.0-8.3 ALBUMIN 4.0 g/dL 3.5-5.0 ALKALINE PHOSPHATASE 66 U/L 40-150 AST 19 U/L 5-34 ALT 27 U/L BILIRUBIN, TOTAL 0.5 mg/dL 0.2-1.2 Jun 09, 2023 08:32 AM [place] LIPID PANEL FASTING Specimen Type: SERUM No comment entered. Ordering Provider: BOY DELONG Report Released Date/Time: Dec 14, 2022 10:56 AM Reporting Lab: [address] [address] Performing Lab: [address] [address] CHOLESTEROL 173 mg/dL TRIGLYCERIDE 81 mg/dL 0-150 LDL calculated 118 mg/dL 0-129 CHOL/HDL 4.4 HDL CHOLESTEROL 39 mg/dL L 40-60 Jun 09, 2023 08:32 AM [place] BASIC METABOLIC PANEL (fasting) Specime n Type: SERUM No comment entered. Ordering Provider: BOY DELONG Report Released Date/Time: Dec 14, 2022 10:56 AM Reporting Lab: [address] [address] Performing Lab: [address] [address] UREA NITROGEN 15 mg/dL 7-25 GLUCOSE 113 mg/dL H 65-100 SODIUM 141 mmol/L 135-145 POTASSIUM 3.9 mmol/L 3.5-5.0 CHLORIDE 108 mmol/L 100-110 CO2 24 meq/L 20-30 CREATININE, Serum 1.17 mg/dL 0.50-1.40 eGFR(CKD-EPI 2020) 71 mL/min >60 Jun 09, 2023 08:32 AM [place] CALCIUM Specimen Type: SERUM No comment entered. Ordering Provider: BOY DELONG Report Released Date/Time: Dec 14, 2022 10:56 AM Reporting Lab: [address] [address] Performing Lab: [address] [address] CALCIUM 8.8 mg/dL 8.5-10.2 Jun 09, 2023 08:32 AM [place] URIC ACID Specimen Type: SERUM No comment entered. Ordering Provider: BOY DELONG Report Released Date/Time: Dec 14, 2022 10:56 AM Reporting Lab: [facility] [address] [facility] [address] Performing Lab: [facility] [address] [facility] [address] URIC ACID 5.6 mg/dL 3.5-7.2 Radiology Reports: [...] 2023 10:59 AM ABDOMINAL ULTRASOUND: LUPILLO HONG SMILEY [id number] -1960 M Exm Date: JUN 24, 2023@10:59 Req Phys: BOY DELONG Loc: CWM/SO/PACT 3 WH (Req'g Loc) Img Loc: ULTRASOUND Service: Unknown (Case [id number] COMPLETE) Affymax ABDOMEN LTD (US Detailed) CPT:24579 Reason for Study: umbilical hernia Clinical History: need views before seeing karen trujillo Report Status: Verified Date Reported: JUN 25, 2023 Date Verified: JUN 25, 2023 Top Ironer E-Sig: Report: Affymax ABDOMEN L[employer] [PRINTSET] Clinical History: Umbilical hernia. Comparison: None [...] containing hernia. READING PHYSICIAN: Mikhail Andrews MD -[id number] 06/24/2023 23:15 PDT [facility] National Teleradiology Program [phone] (For Medical Practitioner Use Only) Attention Patients / Veterans: If you have questions or concerns about these test results, please contact your ordering provider or primary care team. Primary Diagnostic Code: NO ALERT REQUIRED Primary Interpreting Staff: RADIOLOGY,OUTSIDE SERVICE, Staff Physician / RADIOLOGY,OUTSIDE SERVICE [place] [facility] [place] [facility] Encounter Notes: All associated encounter notes This section contains the clinical notes associated to the Encounter. Date/Time Encounter Note(s) Provider Source Jun 10, 2023 11:38 AM PREVENTIVE MEDICIN E NURSING NOTE: LOCAL TITLE: CLINICAL REMINDERS/NURSING STANDARD TITLE: PREVENTIVE MEDICINE NURSING NOTE DATE OF NOTE: JUN 10, 2023@11:38 ENTRY DATE: JUN 10, 2023@11:38:44 AUTHOR: TAYLA HURD COSIGNER: URGENCY: STATUS: COMPLETED RHS Screen: RHS Screen Environmental Check Upon inquiry, the individual reports that the environment is safe to proceed. Informed Consent to Screen and Document The individual consents to proceed with screening. The individual consents to documentation of responses. PRIMARY SCREEN: In the past 12 months, how often did a current or former intimate partner (e.g., boyfriend, girlfriend, , , sexual partner): 1. Scream or curse at you Never 2. Insult or talk down to you Never 3. Threaten you with harm Never 4. Physically hurt you Never 5. Force or pressure you to have sexual contact against your will, or when you were unable to say no Never ?? The HITS tool (items 1-4 above) is US copyright protected by Emanuel Carvalho MD, and the user has full rights to use it throughout the [place] system. PRIMARY SCREEN RESULT: The Primary Screen is NEGATIVE. The individual answered never to all forms of IPV above (i.e., answered never to all 5 items) The individual accepts education and/or resources: No EDUCATION: The individual indicated readiness to learn. Education offered during this session as noted above. The individual indicated understanding by asking relevant questions and making appropriate comments. No barriers to learning were observed or identified. /ivone/ TAYLA HURD LPN LPN Signed: 06/10/2023 11:40 TAYLA HURD
--- OUTSIDE RECORDS SUMMARY | 2024-02-15 02:48 | XMS_ITS ---
Author Name [facility] [place] [facility] [place] Address [address] [place] [address] Care Team Providers Care Executive Sales Manager Name Role Phone BOY DELONG Primary [...] OPTUM RX PRESCRIPT ION HEALT H [facility] Mar 07, 2020 [facility] [id number] MARGARETH HONG RRYL PATIENT Selected Encounter This section includes the information on record at [place] for the Encounter. Date/Time Encounter Type Encounter Description Reason Provider Source August 05, 2023 09:00 AM MTMS BY PHARM ADDL 15 MIN [facility] - IND ICD-10-CM F32.1 Major depressive disorder, single episode, moderate PRETTY MEEHAN Rosibel Encounter Template Text not used by [place] Assessments - Encounter Diagnoses This section includes the primary and secondary diagnoses documented for the Encounter. Date/Time Primary/Secondary Diagnosis Diagnosis Name Provider Source August 05, 2023 09:59 AM PRIMARY Major depressive disorder, single episode, moderate [facility]EE[facility] Plan of Treatment: Future Appointments (+ 6 months) and Future Tests (+/- 45 days) The Plan of Treatment section includes future care activities for the patient from all [place] [facility]. This section includes future appointments and future orders which are active, pending or scheduled. Future Appointments This section includes appointments that were scheduled to occur 6 months from the date of the Encounter, up to a maximum of 20 appointments. The data comes from all [place] treatment facilities. Appointment Date/Time Appointment Type Appointme nt Facility Name Aug 11, 2023 10:40 AM AMBULATORY [facility] MEDICINE [facility] [place] [facility] Aug 19, 2023 10:00 [facility] Sep 09, 2023 09:30 AM AMBULATORY - PS[facility]CHIATRY [facility] [place] [facility] Oct 14, 2023 09:30 AM AMBULATORY - PS[facility]CHIATRY [facility] [place] [facility] Oct 28, 2023 10:00 AM AMBULATORY - PS[facility]CHIATRY [facility] [place] [facility] Nov 11, 2023 11:00 AM AMBULATORY - PS[facility]CHIATRY [facility] [place] [facility] Nov 14, 2023 03:00 PM AMBULATORY - MEDICINE [facility] [place] [facility] Nov 17, 2023 08:00 AM AMBULATORY - MEDICINE [place] [facility] [place] [facility] Jan 06, 2024 10:00 AM [facility]ICINE [facility] Jan 10, 2024 11:15 AM AMBULATORY - NONE [facility] [place] [facility] Jan 10, 2024 11:30 AM AMBULATORY - NONE [facility] [place] [facility] Jan 13, 2024 10:00 AM AMBULATORY - PS[facility]CHIATRY [facility] [place] [facility] Jan 13, 2024 01:00 PM AMBULATORY - MEDICINE [facility] [place] [facility] Feb 03, 2024 03:30 PM [facility] Encounter Notes: All associated encounter notes This section contains the clinical notes associated to the Encounter. Date/Time Encounter Note(s) Provider Source August 05, 2023 09:15 AM MENTAL HEALTH CONSULT: LOCAL TITLE: MENTAL HEALTH CONSULT NOTE STANDARD TITLE: MENTAL HEALTH CONSULT DATE OF NOTE: AUGUST 05, 2023@09:15 ENTRY DATE: AUGUST 05, 2023@09:16:03 AUTHOR: DIEUDONNE MEEHAN COSIGNER: URGENCY: STATUS: COMPLETED Program: Clinical Pharmacy Provider/Medication Management Speciality: Mental Health ATTENDED BY: [X] Patient [ ] Spouse/Caregiver LENGTH OF SESSION: 60minutes -=-=-=-=-=-=-=-=-=-=-=-=-=-=- =-=-=-=-=-==-=-=-=-=-=-=-=-=- =-=-=-=-=-=-=-=-=-=-=- Name: LUPILLO HONG : Oct ID: 62yo BLACK OR MALE -=-=-=-=-=-=-=-=-=-=-=-=-=-=- =-=-=-=-=-==-=-=-=-=-=-=-=-=- =-=-=-=-=-=Subjective- Treating Dx(s): MDD Interview Summary: pt w/ CC of I am a single nissa and life is stressful...the older I get, the more difficult it becomes. endorsed multiple stressors, including, job, financial, and pain all over. endorses minimal socialization. states I am trying to get my self healthier and is working towards making significant changes in his life, including better sleep and working out more again to achieve his weight goals. states I just want to feel more motivated. noted that pt is planning to begin therapy soon, but despite all the improvements he has recently made he is interested in trialing medications. mentions that he has never trialed any medications for MH in the past. discussed SSRIs and specifically sertraline. medication education provided, to which pt provided verbal understanding and agreed to the plan. Mood: down Sleep: difficulty with sleep maintenance 2/2 to stress and bladder; ~2-4 awakenings per night, most of the time does not feel rested; avg 4hrs Apetite: okay Clive reports the following regarding medications: -N--Y- [ ][X] Adherence/Compliance [ ][X] Adverse Drug Reactions > diarrhea w/ celecoxib [ ][X] New OTC/Herbal/Supplement(s) - seamoss - black seed oi - creatine SUBSTANCE USE ASSESSMENT [ ] Denies All [ ] Nicotine [ ] Caffeine > 1/d [X] Alcohol > very infrequent d/t FH of alcoholism [X] Cannabis > slowly starting to smoke more cannabis a few puffs here and there, or edibles. > 30+yrs ago, I was a pothead [ ] Other Illicit Substances -=-=-=-=-=-=-=-=-=-=-=-=-=-=- =-=-=-=-=-==-=-=-=-=-=-=-=-=- =-=-=-=-=-=-Objective- Mental Status Exam Appearance: [X] Unremarkable [X] Appropriate to season [ ] Neatly groomed [ ] Somewhat disheveled [ ] Other: Behavior Mood/Affect: [X] Appropriate [ ] Irritable [X] Normal [ ] Euphoric [ ] Pleasant [ ] Provocative [ ] Bright [ ] Depressed [ ] Anxious [ ] Frustrated [ ] Anxious [ ] Frustrated [ ] Maintained good eye contact [ ] Restricted [ ] Flat [ ] Other: [ ] Subdued [ ] Unremarkable [ ] Responsive & Congruent w/mood Energy: [ ] Other: [X] Normal [ ] Excessive [ ] Lethargic [ ] Variable Sleep: [ ] Other: [X] Normal [ ] Early awakening [ ] Sleep onset insomnia -N--Y- Orientation to: [ ] Frequent disruption [ ][X] Person [ ][X] Place Speech: [ ][X] Time [X] Normal [ ] Rapid [ ] Loud [ ] Flat [ ] Slow [ ] Soft Stream of thought: [ ] Other: [X] Normal [ ] Confused [ ] Tangential [ ] Derailed Insight/Judgment: [ ] Vague [ ] Repetitive [X] Normal [ ] Impaired [ ] No evidence of thought disorder [ ] No overt psychosis Other cognitive problems: [ ] Denies Flashbacks [X] Cognition intact [ ] Denies AH/VH [X] Logical and Linear [ ] Obsessions [ ] Paranoid/Delusions [X] Memory sufficient for interview [ ] Hallucinations: [ ] None [ ] Visuospatial [ ] Flashbacks: [ ] Attention [ ] Judgment [ ] Other: [ ] Abstraction Active problems - Computerized Problem List is the source for the followin. Femoral acetabular impingement 2. Abdominal hernia 3. Ambulatory ECG normal 4. Pain in right hip joint 5. Acute bronchitis 6. Low back pain 7. Foot pain 8. Hyperglycemia 9. Benign hypertension 10. Multiple renal cysts 11. Screening for malignant neoplasm of colon done 12. Pain of bilateral knee regions 13. Nocturia 14. Dyspnea ALLERGIES: Patient has answered NKA Active Outpatient Medications (including Supplies): Active Outpatient Medications Status 1) ALBUTEROL 90MCG (CFC-F) 200D ORAL INHL INHALE 1 PUFF ACTIVE BY MOUTH ONCE DAILY NEEDED FOR BRONCHOSPASM 2) AMLODIPINE BESYLATE 10MG TAB TAKE ONE TABLET BY MOUTH ACTIVE ONCE DAILY FOR BLOOD PRESSURE/HEART, DO NOT TAKE WITH GRAPEFRUIT JUICE 3) HYALURONATE NA (DUROLANE)20MG/ML SYR 3ML INJECT 60MG ACTIVE INTRA-ARTICULAR ONE TIME OSTEOARTHRITIS OF THE KNEE 4) HYDROCHLOROTHIAZIDE 25MG TAB TAKE ONE-HALF TABLET BY ACTIVE MOUTH ONCE DAILY 5) LORATADINE 10MG TAB TAKE ONE TABLET BY MOUTH ONCE ACTIVE DAILY FOR ALLERGY 6) LOSARTAN 25MG TAB TAKE ONE TABLET BY MOUTH ONCE DAILY ACTIVE (S) FOR BLOOD PRESSURE/HEART 7) SILDENAFIL CITRATE 100MG TAB TAKE ONE TABLET BY MOUTH ACTIVE DIRECTED TAKE 1 HOUR PRIOR TO SEXUAL ACTIVITY TRY ONE HALF PILL; IF ONE HALF DOES NOT WORK THEN MAY TAKE ONE WHOLE TABLET NEXT TIME; NEVER TAKE MORE THAN ONE TABLET AT ONE TIME Past psychiatric medications include the following: [X] Per CPRS: n/a [X] Per Patient: n/a Vitals: Ht: 72 in [182.9 cm] (01/07/2023 13:49) Wt: 239.4 lb [108.59 kg] (06/10/2023 11:37) BMI: 32.5 BP: 134/84 (06/10/2023 11:37) HR: 73 (06/10/2023 11:37) Labs: CHEM 7 TREND LAB CUMULATIVE SELECTED Collection DT Spec GLUCOSE BUN CREATIN Sodium K+/Pot CL CO2 06/09/2023 08:32 SERUM 113 H 15 1.17 141 3.9 108 24 12/14/2022 10:25 SERUM 97 14 1.23 141 3.8 107 25 05/14/2022 09:39 SERUM 102 H 18 1.25 140 3.8 108 24 09/11/2021 12:15 SERUM 107 H 16 1.14 139 4.2 106 26 05/29/2021 10:34 SERUM 118 H 14 1.27 139 3.9 106 25 LIVER PANEL TREND Collection DT Spec AST ALT T BILI ALK TAMMIE T. PROT ALBUMIN 06/09/2023 08:32 SERUM 19 27 0.5 66 6.9 4.0 12/14/2022 10:25 SERUM 22 30 0.6 68 7.0 4.1 05/14/2022 09:39 SERUM 24 34 0.4 57 6.9 4.0 09/11/2021 12:15 SERUM 29 05/29/2021 10:34 SERUM 22 29 0.7 62 7.3 4.1 CBC TREND Collection DT Spec WBC RBC HGB HCT MCV MCH PLT 06/09/2023 08:32 BLOOD 4.38 L 5.42 15.0 44.9 82.8 27.7 265 12/14/2022 10:25 BLOOD 4.11 L 5.49 14.9 45.2 82.3 27.1 275 05/14/2022 09:39 BLOOD 4.02 L 5.27 14.4 43.2 82.0 27.3 248 09/11/2021 12:15 BLOOD 3.10 L 5.24 14.1 43.0 82.1 26.9 237 05/29/2021 10:34 BLOOD 3.79 L 5.43 14.9 45.0 82.9 27.4 244 LIPID PANEL TREND Collection DT Spec CHOL HDL CHO/HDL LDL-c TRIG 06/09/2023 08:32 SERUM 173 39 L 4.4 118 81 12/14/2022 10:25 SERUM 165 36 L 4.6 104 127 05/14/2022 09:39 SERUM 173 36 L 4.8 120 86 05/29/2021 10:34 SERUM 190 34 L 5.6 134 H 111 HEMOGLOBIN A1C TREND Collection DT Spec HGBA1c 06/09/2023 08:32 BLOOD 5.8 H 12/14/2022 10:25 BLOOD 5.7 H 09/11/2021 12:15 BLOOD 5.9 H EK QTc = 433ms; NSR Estimated CrCl (based on IBW): ~73mL/min -=-=-=-=-=-=-=-=-=-=-=-=-=-=- =-=-=-=-=-==-=-=-=-=-=-=-=-=- =-=-=-=-=-=-=-=-=-=-=- ASSESSMENT The following review of all active psychotropic and GRE TUTOR-active agents is to ensure pharmacotherapy is evaluated for safety and efficacy as they relate to behaviorial and physiological changes and outcomes MDD - no previous antidepressant trials; will trial sertraline at this time PLAN 1. Pharmacotherapy [ ] No changes [ ] Discontinue: [X] Initiate: sertraline 25mg daily [ ] Change the followin. Labs/tests: n/a 3. Consult(s) or Coordination of care: n/a 4. Other: Education was provided to the regarding the [...] Reduction [ ] Other: RTC Interval: every 4-6weeks Next Apt: [id number] Clive was provided jingle writer's contact information and instructed to contact jingle writer as needed for any changes to scheduling or concerns otherwise. Clive is aware of actions to take if they feel unsafe, including calling the 's Crisis Line (#[phone]); calling 911; or going to the nearest urgent care or emergency room. The is also aware of how to contact the clinic should the require additional services prior to the next appointment. Time spent on chart review, session, and documentation: 60minutes /ivone/ Dieudonne Meehan PharmD Clinical Pharmacist Practitioner Signed: 08/12/2023 16:28 DIEUDONNE MEEHAN [place] [facility]
--- OUTSIDE RECORDS SUMMARY | 2024-02-15 02:48 | XMS_ITS ---
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 Date/Time Encounter Type Encounter Description Reason Pro vider Source Aug 08, 2023 08:09 PM Outpatient Encounter ADMIN PAT ACTIVTIES (MASNONCT) IHE [...] - MEDICINE [facility] [place] [facility] Aug 19, 2023 10:00 AM [facility] Sep 09, 2023 09:30 AM AMBULATORY - [facility]CHIATRY [facility] [place] [facility] Oct 14, 2023 09:30 AM AMBULATORY - PS[facility]CHIATRY [facility] [place] [facility] Oct 28, 2023 10:00 AM AMBULATORY - PS[facility]CHIATRY [facility] [place] [facility] Nov 11, 2023 11:00 AM AMBULATORY - PS[facility]CHIATRY [facility] [place] [facility] Nov 14, 2023 03:00 PM AMBULATORY - MEDICINE [facility] [place] [facility] Nov 17, 2023 08:00 AM AMBULATORY - MEDICINE [facility] [place] [facility] Jan 06, 2024 10:00 AM AMBULATORY - [place]IC[place] Jan 10, 2024 11:15 AM AMBULATORY - NONE [facility] [place] [facility] Jan 10, 2024 11:30 AM AMBULATORY - NONE [facility] [place] [facility] Jan 13, 2024 10:00 AM AMBULATORY - PS[facility]CHIATRY [facility] [place] [facility] Jan 13, 2024 01:00 PM AMBULATORY - MEDICINE [facility] [place] [facility] Feb 03, 2024 03:30 PM AMBULATORY - [facility]IC[place] Encounter Notes: All associated encounter notes This section contains the clinical notes associated to the Encounter. Date/Time Encounter Note(s) Provider Source Aug 08, 2023 08:09 PM PHARMACY NOTE: LOCAL TITLE: PHARMACY CUSTOMER CARE MEDICATION RENEWAL STANDARD TITLE: PHARMACY NOTE DATE OF NOTE: AUG 08, 2023@20:09 ENTRY DATE: AUG 08, 2023@20:10:06 AUTHOR: ISIS RAMOS COSIGNER: URGENCY: STATUS: COMPLETED Date: Aug Division: [facility] referred by Pharmacy Call Center for medication renewal: Non-controlled/maintenan ce medication Medications requested: [id number] CELECOXIB 200MG CAP Defer to primary care provider To be mailed . Please review and renew if appropriate. *This note was generated by [facility]/[place] [facility] Customer [facility]. If you have any questions or need assistance, do not contact this author. Please refer all questions to your local, on-site pharmacy departments. /ivone/ ISIS RAMOS CPhT Silk Washing Machine Operator, MS/Pharmacy Customer Care Signed: 08/08/2023 20:10 Receipt Acknowledged By: 08/09/2023 08:10 /es/ BOY DELONG PA-C STAFF PHYSICIAN INTEGRATION ARCHITECT 08/09/2023 09:45 /ivone/ Imelda Lutz RN Registered Nurse (RN) ISIS RAMOS [facility]
--- OUTSIDE RECORDS SUMMARY | 2024-02-15 02:48 | XMS_ITS | Encounter Summary ---
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 Date/Time Encounter Type Encounter Description Reason Pro vider Source July 18, 2023 02:26 PM Outpatient Encounter PRIMARY CARE/MEDICINE IHE Encounter Template Text not used by [place] Plan of Treatment: Future Appointments (+ 6 months) and Future Tests (+/- 45 days) The Plan of Treatment section includes future care activities for the patient from all [place] treatmentfacilities. This section includes future appointments and future orders which are active, pending or scheduled. Future Appointments This section includes appointments that were scheduled to occur 6 months from the date of the Encounter, up to a maximum of 20 appointments. The data comes from all [place] treatment facilities. Appointment Date/Time Appointment Type Appointme nt Facility Name July 22, 2023 01:00 PM AMBULATORY - [facility]ATRY [facility] August 03, 2023 08:00 AM [facility] [place] [facility] [place] August 05, 2023 09:00 AM AMBULATORY [facility]AT[facility] [place] [facility] August 05, 2023 03:00 PM AMBULATORY - [facility]IATRY [facility] [place] [facility] Aug 11, 2023 10:40 AM AMBULATORY - MEDICINE [facility] [place] [facility] Aug 19, 2023 10:00 AM [facility] [place] [facility] [place] Sep 09, 2023 09:30 AM AMBULATORY - [facility]IATRY [facility] [place] [facility] Oct 14, 2023 09:30 AM AMBULATORY - PS[facility]CHIATRY [facility] [place] [facility] Oct 28, 2023 10:00 AM AMBULATORY - PS[facility]CHIATRY [facility] [place] [facility] Nov 11, 2023 11:00 AM AMBULATORY - PS[facility]CHIATRY [facility] [place] [facility] Nov 14, 2023 03:00 PM AMBULATORY - MEDICINE [facility] [place] [facility] Nov 17, 2023 08:00 AM AMBULATORY - MEDICINE [facility] [place] [facility] Jan 06, 2024 10:00 AM AMBULATORY - MEDICINE [place] Jan 10, 2024 11:15 AM AMBULATORY - NONE [facility] [place] [facility] Jan 10, 2024 11:30 AM AMBULATORY - NONE [facility] [place] [facility] Jan 13, 2024 10:00 AM AMBULATORY - PS[facility]CHIATRY [facility] [place] [facility] Jan 13, 2024 01:00 PM AMBULATORY - MEDICINE [facility] [place] [facility] Radiology Reports: +/- 30 days of [...] the Encounter. The data comes from all [place] treatment facilities. Date/Time Radiology Report Provider Source Jun 24, 2023 10:59 AM ABDOMINAL ULTRASOUND: LUPILLO HONG [id number] -[id number] M Exm Date: JUN 24, 2023@10:59 Req Phys: BOY TRUONG Loc: CWM/SO/PACT 3 WH (Req'g Loc) Img Loc: ULTRASOUND Service: Unknown (Case [id number] COMPLETE) [facility] [employer] ([place] Detailed) CPT:10268 Reason for Study: umbilical hernia Clinical History: need views before seeing karen trujillo Report Status: Verified Date Reported: JUN 25, 2023 Date Verified: JUN 25, 2023 Athletic Trainer E-Sig: Report: [email or web address] [PRINTSET] Clinical History: Umbilical hernia. Comparison: None [...] containing hernia. READING PHYSICIAN: Mikhail Andrews MD -[id number] 06/24/2023 23:15 PDT [facility] National Teleradiology Program [phone] (For Medical Practitioner Use Only) Attention Patients / Veterans: If you have questions or concerns about these test results, please contact your ordering provider or primary care team. Primary Diagnostic Code: NO ALERT REQUIRED Primary Interpreting Staff: RADIOLOGY,OUTSIDE SERVICE, Staff Physician / RADIOLOGY,OUTSIDE SERVICE [place] [facility] Encounter Notes: All associated encounter notes This section contains the clinical notes associated to the Encounter. Date/Time Encounter Note(s) Provider Source July 25, 2023 07:04 AM PRIMARY CARE SECUR E MESSAGING: LOCAL TITLE: PRIMARY CARE SECURE MESSAGING STANDARD TITLE: PRIMARY CARE SECURE MESSAGING DATE OF NOTE: JULY 25, 2023@07:04 ENTRY DATE: JULY 25, 2023@08:04:49 AUTHOR: ANITA MANUEL COSIGNER: URGENCY: STATUS: COMPLETED ------Original Message -------- Sent: 07/22/2023 11:44 AM ET From: TEJA LUTZ To: LUPILLO HONG Subject: Medication:confidential Hi Mr Baljeet Irvin would like to speak with you before prescribing, he did leave you a message earlier this week, please let me know when you are available to talk to Mr Truong. Thanks ------Original Message -------- Sent: 07/23/2023 09:26 AM ET From: LUPILLO HONG To: BALJEETChelsea_PRIMARY CARE_[facility] Subject: Medication:confidential i am available all day on any week day. i do not have any messages from dr. truong /ivone/ JT MANUEL Advanced Fur Cutting Machine Operator Signed: 07/25/2023 08:04 Receipt Acknowledged By: 07/25/2023 08:27 /ivone/ HALEY AVILEZN,RN-BC REGISTERED NURSE (RN) for TEJA LUTZ 07/25/2023 09:02 /ivone/ BOY TRUONG PA-C STAFF PHYSICIAN LIME SLUDGE MIXER ANITA MANUEL [place] [facility] [place] [facility] July 19, 2023 03:34 PM ADDENDUM: LOCAL TITLE: Addendum STANDARD TITLE: ADDENDUM DATE OF NOTE: JULY 19, 2023@15:34:30 ENTRY DATE: JULY 19, 2023@15:34:31 AUTHOR: TEJA LUTZ EXP COSIGNER: URGENCY: STATUS: COMPLETED PCP--[place] would like you to prescribe Sildenafil for erectile dysfunction, he has not been prescribed this before. Is he a candidate? Please advise. Thanks /ivone/ Teja Lutz RN Registered Nurse (RN) Signed: 07/19/2023 15:37 Receipt Acknowledged By: 07/19/2023 15:41 /ivone/ BOY TRUONG PA-C STAFF PHYSICIAN LIME SLUDGE MIXER ========= --- Original Document --- 07/19/23 PRIMARY CARE SECURE MESSAGING: ------Original Message -------- Sent: 07/18/2023 03:35 PM ET From: TEJA LUTZ To: GELY LUPILLO REIS Subject: Medication:confidential Good Afternoon [place], [place] does carry this medication, however the Rx is usually dispensed for 6 tablets a month for 90 days, #18, so if you have a copay it would be times 3 once dispensed. Also, not everyone can take this medication. If you are interested in taking this medication I can send to Mr Truong to see if it is safe to prescribe to you. Please let me know how you wnat to procede. Thank you for your service. Teja GONSALES 3 RN ------Original Message -------- Sent: 07/19/2023 01:54 PM ET From: LUPILLO HONG To: Chelsea TRUONG_PRIMARY CARE_[facility] Subject: Medication:confidential yes i would like to procede /ivone/ JT MANUEL Advanced Fur Cutting Machine Operator Signed: 07/19/2023 15:02 Receipt Acknowledged By: * AWAITING SIGNATURE * TEJA LUTZ [place] [facility] [place] [facility] July 19, 2023 02:02 PM PRIMARY CARE SECUR E MESSAGING: LOCAL TITLE: PRIMARY CARE SECURE MESSAGING STANDARD TITLE: PRIMARY CARE SECURE MESSAGING DATE OF NOTE: JULY 19, 2023@14:02 ENTRY DATE: JULY 19, 2023@15:02:59 AUTHOR: ANITA MANUELIGNER: URGENCY: STATUS: COMPLETED PRIMARY CARE SECURE MESSAGING Has ADDENDA ------Original Message -------- Sent: 07/18/2023 03:35 PM ET From: TEJA LUTZ To: LUPILLO HONG Subject: Medication:confidential Good Afternoon [facility], [place] does carry this medication, however the Rx is usually dispensed for 6 tablets a month for 90 days, #18, so if you have a copay it would be times 3 once dispensed. Also, not everyone can take this medication. If you are interested in taking this medication I can send to Mr Truong to see if it is safe to prescribe to you. Please let me know how you wnat to procede. Thank you for your service. Teja GONSALES 3 RN ------Original Message -------- Sent: 07/19/2023 01:54 PM ET From: GELY LUPILLO REIS To: [place] TRUONG_PRIMARY CARE_[facility] Subject: Medication:confidential yes i would like to procede /ivone/ JT MANUEL Advanced Fur Cutting Machine Operator Signed: 07/19/2023 15:02 Receipt Acknowledged By: 07/22/2023 15:12 /ivone/ Teja Lutz RN Registered Nurse (RN) 07/19/2023 ADDENDUM STATUS: COMPLETED PCP-- would like you to prescribe Sildenafil for erectile dysfunction, he has not been prescribed this before. Is he a candidate? Please advise. Thanks /ivone/ Teja Lutz RN Registered Nurse (RN) Signed: 07/19/2023 15:37 Receipt Acknowledged By: 07/19/2023 15:41 /ivone/ BOY TRUONG PA-C STAFF PHYSICIAN LIME SLUDGE MIXER ANITA MANUEL [place] [facility] [place] [facility] July 18, 2023 02:26 PM PRIMARY CARE SECUR E MESSAGING: LOCAL TITLE: PRIMARY CARE SECURE MESSAGING STANDARD TITLE: PRIMARY CARE SECURE MESSAGING DATE OF NOTE: JULY 18, 2023@14:26 ENTRY DATE: JULY 18, 2023@15:26:11 AUTHOR: ANITA MANUEL EXP COSIGNER: URGENCY: STATUS: COMPLETED PRIMARY CARE SECURE MESSAGING Has ADDENDA ------Original Message -------- Sent: 07/18/2023 02:51 PM ET From: LUPILLO HONG To: [place] TRUONG_PRIMARY CARE_[facility] Subject: Medication:confidential [facility] equivalent [facility] ? /ivone/ JT MANUEL Advanced Fur Cutting Machine Operator Signed: 07/18/2023 15:26 Receipt Acknowledged By: 07/18/2023 15:37 /ivone/ Teja Lutz RN Registered Nurse (RN) 07/18/2023 ADDENDUM STATUS: COMPLETED [facility] message sent to [facility] Dipak Irvin, [place] does carry this medication, however the Rx is usually dispensed for 6 tablets a month for 90 days, #18, so if you have a copay it would be times 3 once dispensed. Also, not everyone can take this medication. If you are interested in taking this medication I can send to Mr Truong to see if it is safe to prescribe to you. Please let me know how you wnat to procede. Thank you for your service. /ivone/ Teja Lutz RN Registered Nurse (RN) Signed: 07/18/2023 15:36 [facility]EL [facility]
--- OUTSIDE RECORDS SUMMARY | 2024-02-15 02:48 | XMS_ITS | Encounter Summary ---
Author Name [facility] Organization [facility] Address [address] [place] [address] Care Team Providers Care Tobacco Blender Name Role Phone BOY DELONG Primary Care [...] RX PRESCRIPT ION HEALT H [place] Mar 07, 2020 [facility] [id number] MARGARETH HONG RRYL PATIENT Selected Encounter This section includes the information on record at ID for the Encounter. Date/Time Encounter Type Encounter Description Reason Pro vider Source Jun 17, 2023 08:00 AM Outpatient Encounter [facility] Encounter Template Text not used by ID Plan of Treatment: Future Appointments (+ 6 months) and Future Tests (+/- 45 days) The Plan of Treatment section includes future care activities for the patient from all ID treatmentfacilities. This section includes future appointments and future orders which are active, pending or scheduled. Future Appointments This section includes appointments that were scheduled to occur 6 months from the date of the Encounter, up to a maximum of 20 appointments. The data comes from all ID treatment facilities. Appointment Date/Time Appointment Type Appointme nt Facility Name Jun 21, 2023 08:00 AM AMBULATORY - PSYCHIATRY [facility] Jun 24, 2023 11:00 AM AMBULATORY - NONE [facility] [place] [facility] Jun 24, 2023 11:30 AM AMBULATORY - REHAB MEDICIN E [facility] [place] [facility] July 22, 2023 01:00 PM AMBULATORY - PSYCHIATRY [facility] August 03, 2023 08:00 AM AMBULATORY - REHAB MEDICIN E [facility] August 05, 2023 09:00 AM AMBULATORY - PS[facility]AT[facility] [place] [facility] August 05, 2023 03:00 PM AMBULATORY - PS[facility]IAT[facility] [place] [facility] Aug 11, 2023 10:40 AM AM[facility]ULATORY [facility]INE [facility] [place] [facility] Aug 19, 2023 10:00 AM AMBULATORY - REHAB MEDICIN E [facility] Sep 09, 2023 09:30 AM AMBULATORY - PS[facility]IAT[facility] [place] [facility] Oct 14, 2023 09:30 AM AMBULATORY - [facility] [place] [facility] Oct 28, 2023 10:00 AM AMBULATORY - [facility] [place] [facility] Nov 11, 2023 11:00 AM AMBULATORY - PS[facility] [place] [facility] Nov 14, 2023 03:00 PM AM[facility]ULATORY - [facility]ICINE [facility] [place] [facility] Nov 17, 2023 08:00 AM AM[facility]ULATORY - [facility]ICINE [facility] [place] [facility] Lab Results: +/- 30 days of the encounter This section includes the Chemistry and Hematology Lab Results on record with ID for the patient. Radiology Reports and Pathology Reports are provided separately, in subsequent sections. Lab Results This section contains the Chemistry/Hematology Results that were resulted 30 days before or 30 daysafter the date of the Encounter. Date/Time Source Result Type Result - Unit Interpretation Reference Range Comment Jun 09, 2023 08:32 AM [facility] VITAMIN D (25-OH) Specimen Type: SERUM No comment entered. Ordering Provider: BOY DELONG Report Released Date/Time: Dec 14, 2022 10:56 AM Reporting [facility] [address] [address] Performing Lab: [facility] [address] [address] VITAMIN D (25-OH) 21 ng/mL 20-50 Jun 09, 2023 08:32 AM [facility] URINALYSIS Specimen Type: URINE Comment: If Glucose = >500 and Ketones are positive, please alert the Physician. Ordering Provider: BOY DELONG Report Released Date/Time: Dec 14, 2022 10:56 AM Reporting Lab: [address] [address] Performing Lab: [address] [address] UA COLOR Light-Yellow Yellow UA APPEARANCE Clear Clear UA GLUCOSE NEGATIVE mg/dL Negative UA KETONES NEGATIVE mg/dL Negative UA BLOOD NEGATIVE mg/dL Negative UA PROTEIN NEGATIVE mg/dL Negative UA NITRITE NEGATIVE mg/dL Negative UA BILIRUBIN NEGATIVE mg/dL Negative UA SPECIFIC GRAVITY 1.015 L 1.016-1.02 2 UA pH 5.5 5.0-9.0 UA UROBILINOGEN <2.0 mg/dL <2.0 UA LEUKOCYTE NEGATIVE Negative Jun 09, 2023 08:32 AM [place] VITAMIN B12 Specimen Type: SERUM No comment entered. Ordering Provider: BOY DELONG Report Released Date/Time: Dec 14, 2022 10:56 AM Reporting Lab: [address] [address] Performing Lab: [place] [address] VITAMIN B12 580 pg/mL 200-900 Jun 09, 2023 08:32 AM [facility] FERRITIN Specimen Type: SERUM No comment entered. Ordering Provider: BOY DELONG Report Released Date/Time: Dec 14, 2022 10:56 AM Reporting Lab: [address] [address] Performing Lab: [address] [address] FERRITIN 199 ng/mL 20-300 Jun 09, 2023 08:32 AM [facility] [facility] CBC AND DIFF (AUTO) Specimen Type: BLOOD No comment entered. Ordering Provider: BOY DELONG Report Released Date/Time: Dec 14, 2022 10:56 AM Reporting Lab: [address] [place] [address] Performing Lab: [address] [address] WBC 4.38 10*3/uL L 4.50-11.00 RBC 5.42 10*6/uL 4.23-5.66 HGB 15.0 g/dL 12.8-17 HCT 44.9 39.2-50.4 MCV 82.8 fL 82-99 MCHC 33.4 g/dL 30.8-35.1 PLT 265 10*3/uL 140-360 RDW-CV 12.8 12.0-16.0 [place], Abs 0.37 10*3/uL 0.30-1.10 MCH 27.7 pg 26.2-32.6 Neut % 56.0 43.7-75.8 Lymph % 31.7 14.0-42.3 [place] % 8.4 5.1-13.7 Eos % 3.0 0.4-6.8 Baso % 0.7 0.1-2.0 Neut, Abs 2.45 10*3/uL 2.20-7.60 Lymph, Abs 1.39 10*3/uL 1.00-3.20 Eos, Abs 0.13 10*3/uL 0.03-0.44 Baso, Abs 0.03 10*3/uL 0.01-0.13 Immature Gran % 0.2 0.0-0.7 Immature Gran, Abs 0.01 10*3/uL 0.00-0.06 Jun 09, 2023 08:32 AM [place] RETICULOCYTES Specimen Type: BLOOD No comment entered. Ordering Provider: BOY DELONG Report Released Date/Time: Dec 14, 2022 10:56 AM Reporting Lab: [facility] [address] [facility] [address] Performing Lab: [address] [address] RETIC % 1.1 0.6-2.0 RETIC, ABS 61.8 10*3/uL 30.0-90.0 Ret-He % 31.3 27.9-42.0 Jun 09, 2023 08:32 AM [place] HEMOGLOBIN A1C PANEL Specimen Type: BLOOD Comment: [...] Dec 14, 2022 10:56 AM Reporting [facility]: [facility] [place] [address] [address] Performing Lab: [facility] [place] [address] [address] HEMOGLOBIN A1C 5.8 H 4.0-5.6 Jun 09, 2023 08:32 AM [place] TSH Specimen Type: SERUM No comment entered. Ordering Provider: BOY DELONG Report Released Date/Time: Dec 14, 2022 10:56 AM Reporting Lab: [facility] [place] [address] [address] Performing Lab: [facility] [place] [address] [address] TSH 2.27 u[IU]/mL 0.35-5.00 Jun 09, 2023 08:32 AM [place] PSA Specimen Type: SERUM No comment entered. Ordering Provider: BOY DELONG Report Released Date/Time: Dec 14, 2022 10:56 AM Reporting Lab: [facility] [place] [address] [address] Performing Lab: [facility] [place] [address] [address] PSA 2.13 ng/mL 0.00-4.00 Jun 09, 2023 08:32 AM [place] BASIC METABOLIC PANEL (fasting) Specime n Type: SERUM No comment entered. Ordering Provider: BOY DELONG Report Released Date/Time: Dec 14, 2022 10:56 AM Reporting Lab: [facility] [place] [address] [address] [facility]forming Lab: [facility] [address] UREA NITROGEN 15 mg/dL 7-25 GLUCOSE 113 mg/dL H 65-100 SODIUM 141 mmol/L 135-145 POTASSIUM 3.9 mmol/L 3.5-5.0 CHLORIDE 108 mmol/L 100-110 CO2 24 meq/L 20-30 CREATININE, Serum 1.17 mg/dL 0.50-1.40 eGFR(CKD-EPI 2020) 71 mL/min >60 Jun 09, 2023 08:32 AM [place] LIVER FUNCTION Specimen Type: SERUM No comment entered. Ordering Provider: BOY DELONG Report Released Date/Time: Dec 14, 2022 10:56 AM Reporting Lab: [facility] [address] [facility] [address] Performing Lab: [address] [address] PROTEIN,TOTAL 6.9 g/dL 6.0-8.3 ALBUMIN 4.0 g/dL 3.5-5.0 ALKALINE PHOSPHATASE 66 U/L 40-150 AST 19 U/L 5-34 ALT 27 U/L BILIRUBIN, TOTAL 0.5 mg/dL 0.2-1.2 Jun 09, 2023 08:32 AM [place] LIPID PANEL FASTING Specimen Type: SERUM No comment entered. Ordering Provider: BOY DELONG Report Released Date/Time: Dec 14, 2022 10:56 AM Reporting Lab: [facility] [address] [facility] [address] Performing Lab: [address] [address] CHOLESTEROL 173 mg/dL TRIGLYCERIDE 81 mg/dL 0-150 LDL calculated 118 mg/dL 0-129 CHOL/HDL 4.4 HDL CHOLESTEROL 39 mg/dL L 40-60 Jun 09, 2023 08:32 AM [place] CALCIUM Specimen Type: SERUM No comment entered. Ordering Provider: BOY DELONG Report Released Date/Time: Dec 14, 2022 10:56 AM Reporting Lab: [facility] [address] [facility] [address] Performing Lab: [address] [address] CALCIUM 8.8 mg/dL 8.5-10.2 Jun 09, 2023 08:32 AM [place] URIC ACID Specimen Type: SERUM No comment entered. Ordering Provider: BOY DELONG Report Released Date/Time: Dec 14, 2022 10:56 AM Reporting Lab: [facility] [address] [facility] [address] Performing Lab: [facility] [address] [facility] [address] URIC ACID 5.6 mg/dL 3.5-7.2 Social History: Smoking Status (Most current) and Tobacco Use (All prior to encounter date) This section includes the most current, and the historical, smoking and tobacco- related health factors from the ID facility where the Encounter took place. Current Smoking Status This section includes the most current smoking, or tobacco-related health factor, from the ID facility where the Encounter took place. Date/Time Current Smoking Status Comment Facil ity Jun 10, 2023 11:30 AM ID-TOBACCO NEVER USED [facility] Tobacco Use History This section includes a history of the smoking, or tobacco-related health factors, that were collected on or before the date of the Encounter. The data comes from the ID facility where the Encounter took place. Date/Time Smoking Status/Tobacco Use Comment F acility May 14, 2022 11:30 AM ID-TOBACCO NEVER USED [facility] [facility] Mar 27, 2021 11:00 AM ID-TOBACCO NEVER USED [facility] Radiology Reports: +/- 30 days of the [...] the Encounter. The data comes from all ID treatment facilities. Date/Time Radiology Report Provider Source Jun 24, 2023 10:59 AM ABDOMINAL ULTRASOUND: LUPILLO HONG [id number] -[id number] M Exm Date: JUN 24, 2023@10:59 Req Phys: BOY DELONG Loc: CWM/SO/PACT 3 [facility] (Req'g Loc) Img Loc: ULTRASOUND Service: Unknown (Case [id number] COMPLETE) ECHOGRAM ABDOMEN LTD (US Detailed) CPT:70052 Reason for Study: umbilical hernia Clinical History: need views before seeing karen trujillo Report Status: Verified Date Reported: JUN 25, 2023 Date Verified: JUN 25, 2023 Gluing Machine Offbearer E-Sig: Report: ECHOGRAM ABDOMEN LTD [PRINTSET] Clinical History: Umbilical hernia. [...] containing hernia. READING PHYSICIAN: Mikhail Andrews MD -[id number] 06/24/2023 23:15 PDT [facility] National Teleradiology Program [phone] (For Medical Practitioner Use Only) Attention Patients / Veterans: If you have questions or concerns about these test results, please contact your ordering provider or primary care team. Primary Diagnostic Code: NO ALERT REQUIRED Primary Interpreting Staff: RADIOLOGY,OUTSIDE SERVICE, Staff Physician / RADIOLOGY,OUTSIDE SERVICE [facility] Encounter Notes: All associated encounter notes This section contains the clinical notes associated to the Encounter. Date/Time Encounter Note(s) Provider Source Jun 20, 2023 09:32 AM ADDENDUM: LOCAL TITLE: Addendum STANDARD TITLE: ADDENDUM DATE OF NOTE: JUN 20, 2023@09:32:11 ENTRY DATE: JUN 20, 2023@09:32:11 AUTHOR: RAQUEL HANSEN EXP COSIGNER: URGENCY: STATUS: COMPLETED Appt marked NS and Letter Sent alerting consult accounting reconciliation clerk. /ivone/ RAQUEL HANSEN ADVANCED SENIOR PYTHON DEVELOPER Signed: 06/20/2023 09:32 Receipt Acknowledged By: 06/20/2023 10:05 /ivone/ NELLI NGUYEN Advanced Superintendent Recreation ======== --- Original Document --- 06/17/23 APPOINTMENT NO SHOW: Patient Name: LUPILLO HONG Patient SSN: [id number] Date and time of Appointment No show : 06/17/23 08:00 PATIENT PHONE - PHONE NUMBER [CELLULAR] - NONE FOUND Patient's medical record was reviewed. Follow-up actions were determined and initiated: Please check/complete as applies: [X]Telephoned Directly [ ]Re-scheduled for next available appt [X]Sent a N0-show letter ( must call for appointment) [ ]Other (Emergent/Overbook, etc.): Additional Comments: 3 VM's left regarding missed appt. He was asked to either contact the clinic or this worker if he wanted to r/s Please NS this appt and send a letter, thanks. Future Clinic Visits 06/24/2023 11:00 CWM/NO/ULTRASOUND 06/24/2023 11:30 CWM/NO/VVC/MED REHAB PROV 07/08/2023 11:00 CWM/SO/PACT 3 WH 09/02/2023 09:00 NHM/OPTOMETRY/[place] 01/06/2024 10:00 CWM/SO/PACT 3 WH /ivone/ GALILEA Guevara PILL PACKER Signed: 06/17/2023 12:45 Receipt Acknowledged By: 06/20/2023 09:32 /ivone/ RAUQEL HANSEN ADVANCED SENIOR PYTHON DEVELOPER RAQUEL HANSEN Jun 17, 2023 12:43 PM CLERICAL NOTE: LOCAL TITLE: APPOINTMENT NO SHOW STANDARD TITLE: CLERICAL NOTE DATE OF NOTE: JUN 17, 2023@12:43 ENTRY DATE: JUN 17, 2023@12:44 AUTHOR: MCKENZIE TUCKER EXP COSIGNER: URGENCY: STATUS: COMPLETED APPOINTMENT NO SHOW Has ADDENDA Patient Name: LUPILLO HONG Patient SSN: [id number] Date and time of Appointment No show : 06/17/23 08:00 PATIENT PHONE - PHONE NUMBER [CELLULAR] - NONE FOUND Patient's medical record was reviewed. Follow-up actions were determined and initiated: Please check/complete as applies: [X]Telephoned Directly [ ]Re-scheduled for next available appt [X]Sent a N0-show letter ( must call for appointment) [ ]Other (Emergent/Overbook, etc.): Additional Comments: 3 VM's left regarding missed appt. He was asked to either contact the clinic or this worker if he wanted to r/s Please NS this appt and send a letter, thanks. Future Clinic Visits 06/24/2023 11:00 CWM/NO/ULTRASOUND 06/24/2023 11:30 CWM/NO/VVC/MED REHAB PROV 07/08/2023 11:00 CWM/SO/PACT 3 WH 09/02/2023 09:00 NHM/OPTOMETRY/[place] 01/06/2024 10:00 CWM/SO/PACT 3 /ivone/ GALILEA Guevara PILL PACKER Signed: 06/17/2023 12:45 Receipt Acknowledged By: 06/20/2023 09:32 /ivone/ RAQUEL HANSEN ADVANCED SENIOR PYTHON DEVELOPER 06/20/2023 ADDENDUM STATUS: COMPLETED Appt marked NS and Letter Sent alerting consult accounting reconciliation clerk. /ivone/ RAQUEL HANSEN ADVANCED SENIOR PYTHON DEVELOPER Signed: 06/20/2023 09:32 Receipt Acknowledged By: * AWAITING SIGNATURE * NELLI NGUYEN,MCKENZIE TIDWELLFIELD
--- OUTSIDE RECORDS SUMMARY | 2024-02-15 02:48 | XMS_ITS | Encounter Summary ---
Author Name [facility] [place] [facility] [place] Address [address] [place] [address] Care Team Providers Care Survey Researcher Name Role Phone BOY DELONG Primary Care [...] OPTUM RX PRESCRIPT ION [facility]ALT [facility] Mar 07, 2020 [facility] [place] [id number] MARGARETH HONG RRYL PATIENT Selected Encounter This section includes the information on record at [place] for the Encounter. Date/Time Encounter Type Encounter Description Reason Provider Source Jun 21, 2023 08:00 AM OFF/OP EST JULY X REQ PHY/Q [facility] - IND ICD-10-CM Z71.89 Other specified counseling MCKENZIE TUCKER Encounter Template Text not used by [place] Assessments - Encounter Diagnoses This section includes the primary and secondary diagnoses documented for the Encounter. Date/Time Primary/Secondary Diagnosis Diagnosis Name Provider Source Jun 21, 2023 08:55 AM PRIMARY Other specified counseling MCKENZIE TUCKER Plan of Treatment: Future Appointments (+ 6 months) and Future Tests (+/- 45 days) The Plan of Treatment section includes future care activities for the patient [facility] [place] [facility] This section includes future appointments and future orders which are active, pending or scheduled. Future Appointments This section includes appointments that were scheduled to occur 6 months from the date of the Encounter, up to a maximum of 20 appointments. The data comes from all [place] treatment facilities. Appointment Date/Time Appointment Type Appointme nt Facility Name Jun 24, 2023 11:00 AM AMBULATORY - NONE [facility] [place] [facility] Jun 24, 2023 11:30 AM AMBULATORY - REHAB MEDICIN E [facility] [place] [facility] July 22, 2023 01:00 PM AMBULATORY - PSYCHIATRY [facility] August 03, 2023 08:00 AM AMBULATORY - REHAB MEDICIN E [place] August 05, 2023 09:00 AM AMBULATORY [facility] PS[facility]IATRY [facility] [place] [facility] August 05, 2023 03:00 PM AMBULATORY [facility]AT[facility] [place] [facility] Aug 11, 2023 10:40 AM [place] [facility] [place] [facility] Aug 19, 2023 10:00 AM AMBULATORY - REHAB MEDICIN E [place] Sep 09, 2023 09:30 AM AMBULATORY [facility] PS[facility]IATRY [facility] [place] [facility] Oct 14, 2023 09:30 AM AMBULATORY - PS[facility]IATRY [facility] [place] [facility] Oct 28, 2023 10:00 AM AMBULATORY - [facility]IATRY [facility] [place] [facility] Nov 11, 2023 11:00 AM AMBULATORY [facility]ATRY [facility] [place] [facility] Nov 14, 2023 03:00 PM AM[place] [facility] [place] [facility] Nov 17, 2023 08:00 AM AM[place]UL[place]ORY [place]INE [place] [facility] [place] [facility] Lab Results: +/- 30 days of the encounter This section includes the Chemistry and Hematology Lab Results on record with [place] for the patient. Radiology Reports and Pathology Reports are provided separately, in subsequent sections. Lab Results This section contains the Chemistry/Hematology Results that were resulted 30 days before or 30 daysafter the date of the Encounter. Date/Time Source Result Type Result - Unit Interpretation Reference Range Comment Jun 09, 2023 08:32 AM [place] VITAMIN D (25-OH) Specimen Type: SERUM No comment entered. Ordering Provider: BOY DELONG Report Released Date/Time: Dec 14, 2022 10:56 AM Reporting Lab: [address] [address] Performing Lab: [address] [address] VITAMIN D (25-OH) 21 ng/mL 20-50 Jun 09, 2023 08:32 AM [place] URINALYSIS Specimen Type: URINE Comment: If Glucose = >500 and Ketones are positive, please alert the Physician. Ordering Provider: BOY DELONG Report Released Date/Time: Dec 14, 2022 10:56 AM Reporting Lab: [address] [address] Performing Lab: [address] [address] UA COLOR Light-Yellow Yellow UA APPEARANCE Clear Clear UA GLUCOSE NEGATIVE mg/dL Negative UA KETONES NEGATIVE mg/dL Negative UA BLOOD NEGATIVE mg/dL Negative UA PROTEIN NEGATIVE mg/dL Negative UA NITRITE NEGATIVE mg/dL Negative UA BILIRUBIN NEGATIVE mg/dL Negative UA SPECIFIC GRAVITY 1.015 L 1.016-1.02 2 UA pH 5.5 5.0-9.0 UA UROBILINOGEN <2.0 mg/dL <2.0 UA LEUKOCYTE NEGATIVE Negative Jun 09, 2023 08:32 AM [place] VITAMIN B12 Specimen Type: SERUM No comment entered. Ordering Provider: BOY DELONG Report Released Date/Time: Dec 14, 2022 10:56 AM Reporting Lab: [address] [address] Performing Lab: [address] [address] VITAMIN B12 580 pg/mL 200-900 Jun 09, 2023 08:32 AM [place] CBC AND DIFF (AUTO) Specimen Type: BLOOD No comment entered. Ordering Provider: BOY DELONG Report Released Date/Time: Dec 14, 2022 10:56 AM Reporting Lab: [address] [address] Performing Lab: [address] [address] WBC 4.38 10*3/uL L 4.50-11.00 RBC 5.42 10*6/uL 4.23-5.66 HGB 15.0 g/dL 12.8-17 HCT 44.9 39.2-50.4 MCV 82.8 fL 82-99 MCHC 33.4 g/dL 30.8-35.1 PLT 265 10*3/uL 140-360 RDW-CV 12.8 12.0-16.0 Prentiss, Abs 0.37 10*3/uL 0.30-1.10 MCH 27.7 pg 26.2-32.6 Neut % 56.0 43.7-75.8 Lymph % 31.7 14.0-42.3 Prentiss % 8.4 5.1-13.7 Eos % 3.0 0.4-6.8 Baso % 0.7 0.1-2.0 Neut, Abs 2.45 10*3/uL 2.20-7.60 Lymph, Abs 1.39 10*3/uL 1.00-3.20 Eos, Abs 0.13 10*3/uL 0.03-0.44 Baso, Abs 0.03 10*3/uL 0.01-0.13 Immature Gran % 0.2 0.0-0.7 Immature Gran, Abs 0.01 10*3/uL 0.00-0.06 Jun 09, 2023 08:32 AM [place] RETICULOCYTES Specimen Type: BLOOD No comment entered. Ordering Provider: BOY DELONG Report Released Date/Time: Dec 14, 2022 10:56 AM Reporting Lab: [address] [address] [facility]: [facility] [address] [address] RETIC % 1.1 0.6-2.0 RETIC, ABS 61.8 10*3/uL 30.0-90.0 Ret-He % 31.3 27.9-42.0 Jun 09, 2023 08:32 AM [place] FERRITIN Specimen Type: SERUM No comment entered. Ordering Provider: BOY DELONG Report Released Date/Time: Dec 14, 2022 10:56 AM Reporting Lab: [facility] [address] [facility] [address] Performing Lab: [place] [facility] [place] [address] [address] FERRITIN 199 ng/mL 20-300 Jun 09, 2023 08:32 AM [place] HEMOGLOBIN A1C PANEL Specimen Type: BLOOD Comment: [...] Dec 14, 2022 10:56 AM Reporting Lab: [facility] [address] [address] Performing Lab: [facility] [address] [address] HEMOGLOBIN A1C 5.8 H 4.0-5.6 Jun 09, 2023 08:32 AM [place] TSH Specimen Type: SERUM No comment entered. Ordering Provider: BOY DELONG Report Released Date/Time: Dec 14, 2022 10:56 AM Reporting Lab: [facility] [address] Performing Lab: [facility] [address] TSH 2.27 u[IU]/mL 0.35-5.00 Jun 09, 2023 08:32 AM [place] PSA Specimen Type: SERUM No comment entered. Ordering Provider: BOY DELONG Report Released Date/Time: Dec 14, 2022 10:56 AM Reporting Lab: [facility] [address] [address] Performing Lab: [facility] [address] PSA 2.13 ng/mL 0.00-4.00 Jun 09, 2023 08:32 AM [place] LIVER FUNCTION Specimen Type: SERUM No comment entered. Ordering Provider: BOY DELONG Report Released Date/Time: Dec 14, 2022 10:56 AM Reporting Lab: [address] [address] Performing Lab: [address] [address] PROTEIN,TOTAL 6.9 g/dL 6.0-8.3 ALBUMIN 4.0 g/dL 3.5-5.0 ALKALINE PHOSPHATASE 66 U/L 40-150 AST 19 U/L 5-34 ALT 27 U/L BILIRUBIN, TOTAL 0.5 mg/dL 0.2-1.2 Jun 09, 2023 08:32 AM [place] LIPID PANEL FASTING Specimen Type: SERUM No comment entered. Ordering Provider: BOY DELONG Report Released Date/Time: Dec 14, 2022 10:56 AM Reporting Lab: [address] [address] Performing Lab: [address] [address] CHOLESTEROL 173 mg/dL TRIGLYCERIDE 81 mg/dL 0-150 LDL calculated 118 mg/dL 0-129 CHOL/HDL 4.4 HDL CHOLESTEROL 39 mg/dL L 40-60 Jun 09, 2023 08:32 AM [place] BASIC METABOLIC PANEL (fasting) Specime n Type: SERUM No comment entered. Ordering Provider: BOY DELONG Report Released Date/Time: Dec 14, 2022 10:56 AM Reporting Lab: [address] [address] Performing Lab: [address] [address] UREA NITROGEN 15 mg/dL 7-25 GLUCOSE 113 mg/dL H 65-100 SODIUM 141 mmol/L 135-145 POTASSIUM 3.9 mmol/L 3.5-5.0 CHLORIDE 108 mmol/L 100-110 CO2 24 meq/L 20-30 CREATININE, Serum 1.17 mg/dL 0.50-1.40 eGFR(CKD-EPI 2020) 71 mL/min >60 Jun 09, 2023 08:32 AM [place] CALCIUM Specimen Type: SERUM No comment entered. Ordering Provider: BOY DELONG Report Released Date/Time: Dec 14, 2022 10:56 AM Reporting Lab: [facility] [address] [facility] [address] Performing Lab: [facility] [address] [facility] [address] CALCIUM 8.8 mg/dL 8.5-10.2 Jun 09, 2023 08:32 AM [place] URIC ACID Specimen Type: SERUM No comment entered. Ordering Provider: BOY DELONG Report Released Date/Time: Dec 14, 2022 10:56 AM Reporting Lab: [facility] [address] [facility] [address] Performing Lab: [facility] [address] [facility] [address] URIC ACID 5.6 mg/dL 3.5-7.2 Social History: Smoking Status (Most current) and Tobacco Use (All prior to encounter date) This section includes the most current, and the historical, smoking and tobacco- related health factors from the [place] facility where the Encounter took place. Current Smoking Status This section includes the most current smoking, or tobacco-related health factor, from the [place] facility where the Encounter took place. Date/Time Current Smoking Status Comment Matthew ity Jun 10, 2023 11:30 [facility] [place] Tobacco Use History This section includes a history of the smoking, or tobacco-related health factors, that were collected on or before the date of the Encounter. The data comes from the [place] facility where the Encounter took place. Date/Time Smoking Status/Tobacco Use Comment F acility May 14, 2022 11:30 AM [place]-TOBACCO NEVER USED [place] Mar 27, 2021 11:00 [facility] [place] Radiology Reports: +/- 30 days of the [...] the Encounter. The data comes from all [place] treatment facilities. 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 Comparison: None [...] containing hernia. READING PHYSICIAN: Mikhail Andrews MD -[id number] 06/24/2023 23:15 PDT [facility] National Teleradiology Program [phone] (For Medical Practitioner Use Only) Attention Patients / Veterans: If you have questions or concerns about these test results, please contact your ordering provider or primary care team. Primary Diagnostic Code: NO ALERT REQUIRED Primary Interpreting Staff: RADIOLOGY,OUTSIDE SERVICE, Staff Physician / RADIOLOGY,OUTSIDE SERVICE [place] [facility] Encounter Notes: All associated encounter notes This section contains the clinical notes associated to the Encounter. Date/Time Encounter Note(s) Provider Source Jun 21, 2023 08:56 AM SOCIAL WORK CONSUL T: LOCAL TITLE: CONSULT REPORT/SOCIAL WORK STANDARD TITLE: SOCIAL WORK CONSULT DATE OF NOTE: JUN 21, 2023@08:56 ENTRY DATE: JUN 21, 2023@08:56:17 AUTHOR: MCKENZIE TUCKER EXP COSIGNER: URGENCY: STATUS: COMPLETED Please see note dated 06/20. /ivone/ GALILEA Guevara APPLIER Signed: 06/21/2023 08:56 MCKENZIE TUCKER CAROL Jun 21, 2023 08:30 AM TELEHEALTH NOTE: LOCAL TITLE: [place] [facility] CONNECT SOCIAL WORK NOTE STANDARD TITLE: TELEHEALTH NOTE DATE OF NOTE: JUN 21, 2023@08:30 ENTRY DATE: JUN 21, 2023@08:30:30 AUTHOR: MCKENZIE TUCKER EXP COSIGNER: URGENCY: STATUS: COMPLETED [facility] ([facility]) Standard Documentation [facility] Clinician Resources Only: E911 (Emergency Call Relay Center): [phone] [place] [employer] Crisis Line - 988 then press #1. [facility] Suicide Coordinator [phone], Ext. [phone]; Back-up Ext. [place] Police, PHIL Valente [phone] Introduction: Visit is being conducted by [place] [employer] [facility]. [place] identified with 2 identifiers: [X] Full Name [X] Date of [ ] [facility] ID Card Emergency Plan: [place] confirmed and/or provided the following information in case of emergency or technology failure. PATIENT PHONE - PHONE NUMBER [CELLULAR] - NONE FOUND Is patient phone number correct, if not, enter below: [place]'s phone number: s/p LUPILLO HONG [address], [place], [address] [place]'s present location and address for appointment: s/a [place]'s emergency contact name and phone number: as in chart reported that location is private and safe: Yes Informed Consent: [place] informed of the risks and benefits of Telehealth video care. [place] has the right to refuse video services. If refuses video visit, a [id number] visit will be scheduled. [place] verbalized consent for this video visit: Yes [place] provided consent for any other persons present for visit: N/A If yes, who and relationship to patient: Secure visit: Visit was locked for security and privacy: Yes Purpose of today's appt is to clarify MH request and to gather some information. I think it may be good for me to speak w someone just about what is going on, I really think that'd help me. 62 y/o, AA/m, single, employed, [employer], noncombat, . He is rated at 10% for tinnitus. 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 Financially things have been difficult, he recently fell behind 3mo in his rent and had to take from his 401K. 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 Work has been a lot more stressful. He has children (did not ask the ages), one daughter he has not spoken to for 6mos, he did not share why. Physically he has ongoing and newly developing conditions that interfere w his daily activities- now my hips are hurting, my back and knees, I don't sleep through the night bc I need to use the restroom... . The job has become more challenging bc of this. I just don't feel like doing anything, some days I have called out of work bc I was feeling depressed, I think it's depression, I am really not sure. I used to love going fishing, I haven't gone in over a year. I just started going back to the gym, I hadn't gone for a while. denies any substance abuse or addictions, but does wander if he spends too much at the [employer]. was polite and cooperative, clean cut, wearing his work shirt. Leading questions needed to be asked, he did not speak easily about himself or his situation. This is his first experience w . He is unsure about psych medications at this time- I am on so many right now I just don't know . consult placed. /ivone/ GALILEA Guevara APPLIER Signed: 06/21/2023 08:55 MCKENZIE TUCKER [place]
--- OUTSIDE RECORDS SUMMARY | 2024-02-15 02:48 | XMS_ITS | Encounter Summary ---
Author Name [facility] [place] [facility] [place] Address [address] [place] [address] Care Team Providers Care Spa Attendant Name Role Phone BOY DELONG Primary Care [...] RX PRESCRIPT ION HEALT H [place] [facility] Mar 07, 2020 [facility] [id number] MARGARETH HONG RRYL PATIENT Selected Encounter This section includes the information on record at [place] for the Encounter. Date/Time Encounter Type Encounter Description Reason Provider Source August 03, 2023 08:00 AM SELF CARE MNGMENT TRAINING PHYSICAL THERAPY ICD-10-CM M17.0 Bilateral primary osteoarthritis of knee LUISANA CHINO IHRosibel Encounter Template Text not used by [place] Assessments - Encounter Diagnoses This section includes the primary and secondary diagnoses documented for the Encounter. Date/Time Primary/Secondary Diagnosis Diagnosis Name Provider Source Aug 26, 2023 03:13 PM PRIMARY Bilateral primary osteoarthritis of knee FLETCHER CHINO Plan of Treatment: Future Appointments (+ 6 [...] Date/Time Appointment Type Appointme nt Facility Name August 05, 2023 09:00 AM AM[facility]ULATORY [facility] [place] [facility] August 05, 2023 03:00 PM AM[facility]ULATORY [facility] [place] [facility] Aug 11, 2023 10:40 AM [facility] [place] [facility] Aug 19, 2023 10:00 AM AMBULATORY - RE[facility]AB [facility] Sep 09, 2023 09:30 AM AMBULATORY [facility] [place] [facility] Oct 14, 2023 09:30 AM AMBULATORY [facility] [place] [facility] Oct 28, 2023 10:00 AM AMBUL[facility] [place] [facility] Nov 11, 2023 11:00 AM AM[facility]UL[facility] [place] [facility] Nov 14, 2023 03:00 PM [facility] [place] [facility] [facility] [place] [facility] Nov 17, 2023 08:00 AM [facility] [place] [facility] [place] [facility] Jan 06, 2024 10:00 AM AMBULATORY - MEDICINE [facility] Jan 10, 2024 11:15 AM AMBULATORY - NONE [facility] [place] [facility] Jan 10, 2024 11:30 AM AMBULATORY - NONE [facility] [place] [facility] Jan 13, 2024 10:00 AM AMBUL[facility]ORY [facility] [place] [facility] Jan 13, 2024 01:00 PM [facility] [place] [facility] [place] [facility] Feb 03, 2024 03:30 PM AMBULATORY - MEDICINE [facility] Social History: Smoking Status (Most current) and Tobacco Use (All prior to encounter date) This section includes the most current, and the historical, smoking and tobacco- related health factors from the [place] facility where the Encounter took place. Current Smoking Status This section includes the most current smoking, or tobacco-related health factor, from the [place] facility where the Encounter took place. Date/Time Current Smoking Status Comment Facil [facility]y Jun 10, 2023 11:30 AM VA-TOBACCO NEVER USED [facility] Tobacco Use History This section includes a history of the smoking, or tobacco-related health factors, that were collected on or before the date of the Encounter. The data comes from the [place] facility where the Encounter took place. Date/Time Smoking Status/Tobacco Use Comment Abi bennett May 14, 2022 11:30 AM VA-TOBACCO NEVER USED [facility] Mar 27, 2021 11:00 AM VA-TOBACCO NEVER USED [facility] Encounter Notes: All associated encounter notes This section contains the clinical notes associated to the Encounter. Date/Time Encounter Note(s) Provider Source August 03, 2023 07:23 AM PHYSICAL THERAPY C ONSULT: LOCAL TITLE: PHYSICAL THERAPY CONSULT STANDARD TITLE: PHYSICAL THERAPY CONSULT DATE OF NOTE: AUGUST 03, 2023@07:23 ENTRY DATE: AUGUST 03, 2023@07:23:40 AUTHOR: FLETCHER CHINO COSIGNER: URGENCY: STATUS: COMPLETED Initial Evaluation date: 08/03/23 Progress Note Date: 09/03/23 Treatment #: eval Treatment time: 45 Diagnosis:Bilateral Primary Osteoarthritis of Knee(ICD-10-CM M17.0) Provider:BOY DELONG PT Treatment Precautions: Patient identified by full name and date of SUBJECTIVE: History of Current injury: Patient states the they have bilateral chronic knee pain. Notes the L knee is worse than the R knee. Patient states the pain in the L knee is around the medial and lateral joint lines. Has trialed gel injections without much improvement. Patient states they have diffiulty with prolonged standing, prolonged walking, walking after sitting for longer periods of time, ascending and descending stairs. Tylenol and celebrex help with pain. Has not tried ice or heat. Patient states hx of L knee menisectomy in 20yrs ago. Patient notes a hx of R hip impingement, and some R sided sciatica symptoms primarily in the R glute. Denies majory trauma or other surgical procedures to the knees or hips. 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[id number] Patient Goal: work on exercises to avoid knee replacements, improve strength in the knees Number of days per week with pain: 09/10 SANE report Please rate your ability to use your injured area on a 0% to 100% scale, with 0% being unable to use the injured area and 100% being normal use of injured area in your daily activity: L: 60% R: 70% OBJECTIVE: Red flags: Recent Trauma - Age (50+) + Hx of Cancer - Fever/chills/night sweats - Unexplained weight loss - Recent infection - Immunosuppression- Night pain- Saddle anesthesia - Bowel/bladder dysfunction - LE neurological deficit- Psychosocial flags: mental health dx - entrenched/unhelpful beliefs about pain- clinically relevant catastrophization- signs of kinesiophobia- Gait: antalgic with decreased stance time LLE, decreased terminal knee extension in stance bilateral, L >R ROM: Knee flexion AROM L: 110* R: 120* Knee flexion PROM L: 112* R: 125* Knee Extension AROM L: -8* R: -5* Knee Extension PROM L: -5* R: -3* Ankle Dorsiflexion L: 10 R: 10 Strength: Hip flexion L: 5/5 R: 5/5 Knee extension L: 5/5 R: 5/5 Knee flexion L: 4/5 R: 4/5 Ankle DF L: 5/5 R: 5/5 Ankle INV L: 5/5 R: 5/5 Ankle EV L: 5/5 R: 5/5 Hip ER L: /5 R: /5 Hip ABD L: 4/5 R: 4/5 Hip Extension L: /5 R: /5 Glute Max: L: /5 R: /5 Hip Special Tests: SLR Sign of the Buttock SHAHRIAR Scour FADDIR ANALISA RAMON + 90/90 HS + LEG LENGTH MELE + Symptomatic knee OA: + - Age 50-58 AND BMI >/= 30 AND varus/valgus alignment OR limited passive knee extension o Strong when ruling in Palpation: mod TTP medial joint line bilateral knees Joint Mobility: Measurements for KNEE BRACE: UPPER LEin LOWER LE.5in INTERVENTIONS: Therapeutic Exercise: Mins: Manual therapy: Mins: Neuro re-ed: Mins: Other: Mins: Modalities: Mins: [] contraindication screen completed prior to modality [] skin intact pre/post modality Access Code: [email or web address] URL: [email or web address] Date: 08/03/2023 Prepared by: Fletcher Chino Exercises - Supine Hamstring Stretch with Strap - 1 x daily - 7 x weekly - 3 sets - 30 hold - Gastroc Stretch on Wall - 1 x daily - 7 x weekly - 3 sets - 30 hold - Soleus Stretch on Wall - 1 x daily - 7 x weekly - 3 sets - 30 hold - Active Straight Leg Raise with Quad Set - 1 x daily - 7 x weekly - 2-3 sets - 15-20 reps - Clamshell with Resistance - 1 x daily - 7 x weekly - 2-3 sets - 15-20 reps - Sidelying Bent Knee Lift at 45 Degrees - 1 x daily - 7 x weekly - 2-3 sets - 10-15 reps - Heat - 1-2 x daily - 7 x weekly Patient education: Mins: 25 Discussed potential etiology of symptoms with patient including potential structures involved and how this relates to exercises prescribed and POC discussing frequency and duration of services to be provided with patient verbalizing good understanding and agreement with POC. Provided written HEP to patient with therex from today reviewing proper form sets reps and frequency and safety precautions with patient verbalizing and demonstrating good understanding in clinic. Provided hinged knee brace from stock ensuring proper fit, provided verbal instruciton and demonstration for donning and doffing the brace, as well as wear schedule and care of brace. Patient verbalizes good understanding. Also discussed other options for knee braces that are more low profile with patient verbalizing interest in the bauerfiend genutrain arthritis knee brace. Measurements for this brace taken and order will be placed today. Discussed use of heat to manage their knee pain provide microwavable hot pack today. Discussed parameters and safety precautions and provided written instruction for carryover. Discussed activity/exercise recommendations discussing importance of light cardiovascular activity riding a bike or exercise bike, or using eliptical for low impact cardiovascular exercise. Discussed benefits from foam rolling and self massage with massage roller, muscle groups that would liekly be helpful to focus on. ASSESSMENT: Patient is a 62yo seen for physical therapy evaluation following referral for bilateral knee pain L > R. PMH significant for Pain in right hip joint, Acute bronchitis, Low back pain, Foot pain, Hyperglycemia, Benign hypertension, Multiple renal cysts, Pain of bilateral knee regions, Dyspnea. Patient presents with primary complaint of bilateral knee pain L > R. Pain rated 1/10 at best and current, 7/10 at worst on NPRS. Pain reported to be primarily located around the joint lines of both knees. Primary aggravating factors include prolonged standing an walking, waking on uneven surfaces, ascending/descending stairs, walking after prolonged sitting. On physical assessment, patient primary symptoms reproduced with medial joint line palpation in both knees, knee extension > flexion PROM. Additional impairments that may contribute to condition include impaired knee ROM, most notable with knee extension in both knees, impaired gluteal strength, impaired LE flexibility (quad, hip flexor, hamstring, gastroc/soleus). Based on patient hx and findings of assessment, symptoms appear most consistent with bilateral knee OA. Patient reports these symptoms impact their ability to complete their normal daily tasks like prolonged standing an walking, waking on uneven surfaces, ascending/descending stairs, walking after prolonged sitting. Patient requires skilled physical therapy services in order to address these impairments ad activity limitations and to achieve patient goal of work on exercises to avoid knee replacements, improve strength in the knees . GOALS: in 4-6weeks, patient will demonstrate: consistent carryover of HEP 5/7 days per week with patient able to independently teach back 75% of exercises 2pt decrease in pain level at worst to improve patient ability to complete most symptomatic tasks 10% improvement on SANE score to improve patient ability to complete typical daily tasks decrease in total days with pain by 2 days to improve patient QOL 5deg improvement in L knee extension ROm 10deg improvement in L knee flexion ROM 1/2 grade improvement in L hip ABD MMT PLAN: Discussed POC with patient who verbalizes agreement with skilled PT services biweekly for 4 weeks focusing on improving knee ROM, LE flexibility (quad, hip flexor, hamstring, gastroc/soleus), LE strengthening with focus on quads, hamstrings, glutes, HEP teaching and progression [x]Low impact cardio: [x]Nustep []Recumbent bike []Recumbent elliptical []TM []Manual: []STM/DTM []METs/SCS []IASTM []Joint mobilizations [x]Therex: []Progressive UQ [x]Progressive Core [x]Progressive LQ []UQ flex [] Lumbar flex [x]LQ flex [x]Foam rolling [x]Proprioception []Neuro Re-education: []Static []Dynamic []Dual-Task [x]Education: []Posture []Ergonomics [x]Bodymechanics [x]Self-care strategies [] PNE []Modalities(PRN): []Heat/Ice []Estim/Tens []Mechanical traction []K-tape [] Biofreeze /es/ FLETCHER CHINO PT, DPT PHYSICAL THERAPIST Signed: 08/03/2023 09:13 FLETCHER CHINO [facility]
--- OUTSIDE RECORDS SUMMARY | 2024-02-15 02:48 | XMS_ITS | Encounter Summary ---
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 Date/Time Encounter Type Encounter Description Reason Provider Source Jun 24, 2023 11:30 AM OFFICE O/P EST LOW 20 MIN PM&RS PHYSICIAN ICD-10-CM M25.859 Other specified joint disorders, unspecified hip REESE MCFADDEN E Encounter Template Text not used by [place] Assessments - Encounter Diagnoses This section includes the primary and secondary diagnoses documented for the Encounter. Date/Time Primary/Secondary Diagnosis Diagnosis Name Provider Source Jun 25, 2023 09:58 AM PRIMARY Other specified joint disorders, unspecified hip NNAMDI MCFADDEN [facility] Jun 25, 2023 09:58 AM SECONDARY Bilateral primary osteoarthritis of knee NNAMDI MCFADDEN [place] [facility] [place] [facility] Jun 25, 2023 09:58 AM SECONDARY Pain in left knee NNAMDI MCFADDEN [place] [facility] [place] [facility] Jun 25, 2023 09:58 AM SECONDARY Pain in right knee NNAMDI MCFADDEN [place] [facility] [place] [facility] Plan of Treatment: Future Appointments (+ 6 months) and Future Tests (+/- 45 days) The Plan of Treatment section includes future care activities for the patient [facility] [place] [facility] This section includes future appointments and future orders which are active, pending or scheduled. Future Appointments This section includes appointments that were scheduled to occur 6 months from the date of the Encounter, up to a maximum of 20 appointments. The data comes from all [place] treatment facilities. Appointment Date/Time Appointment Type Appointme nt Facility Name July 22, 2023 01:00 PM AMBULATORY - PSYCHIATRY [facility] August 03, 2023 08:00 AM AMBULATORY - REHAB [facility] August 05, 2023 09:00 AM AM[place]UL[place] [facility] [place] [facility] August 05, 2023 03:00 PM AMBULATORY [place] [facility] [place] [facility] Aug 11, 2023 10:40 AM AMBULATORY - MEDICINE [place] [facility] [place] [facility] Aug 19, 2023 10:00 AM AMBULATORY - REHAB [facility] Sep 09, 2023 09:30 AM AMBULATORY [place] [facility] [place] [facility] Oct 14, 2023 09:30 AM AMBULATORY [place] [facility] [place] [facility] Oct 28, 2023 10:00 AM AMBULATORY - [place] [facility] [place] [facility] Nov 11, 2023 11:00 AM AMBULATORY - [place] [facility] [place] [facility] Nov 14, 2023 03:00 PM AMBULATORY - [place]ICINE [place] [facility] [place] [facility] Nov 17, 2023 08:00 AM AMBULATORY [place]ICINE [place] [facility] [place] [facility] Lab Results: +/- 30 days of the encounter This section includes the Chemistry and Hematology Lab Results on record with [place] for the patient. Radiology Reports and Pathology Reports are provided separately, in subsequent sections. Lab Results This section contains the Chemistry/Hematology Results that were resulted 30 days before or 30 daysafter the date of the Encounter. Date/Time Source Result Type Result - Unit Interpretation Reference Range Comment Jun 09, 2023 08:32 AM [facility] VITAMIN D (25-OH) Specimen Type: SERUM No comment entered. Ordering Provider: BOY DELONG Report Released Date/Time: Dec 14, 2022 10:56 AM Reporting Lab: [address] [address] Performing Lab: [address] [address] VITAMIN D (25-OH) 21 ng/mL 20-50 Jun 09, 2023 08:32 AM [facility] URINALYSIS Specimen Type: URINE Comment: If Glucose = >500 and Ketones are positive, please alert the Physician. Ordering Provider: BOY DELONG Report Released Date/Time: Dec 14, 2022 10:56 AM Reporting Lab: [address] [address] Performing Lab: [address] [address] UA COLOR Light-Yellow Yellow UA APPEARANCE Clear Clear UA GLUCOSE NEGATIVE mg/dL Negative UA KETONES NEGATIVE mg/dL Negative UA BLOOD NEGATIVE mg/dL Negative UA PROTEIN NEGATIVE mg/dL Negative UA NITRITE NEGATIVE mg/dL Negative UA BILIRUBIN NEGATIVE mg/dL Negative UA SPECIFIC GRAVITY 1.015 L 1.016-1.02 2 UA pH 5.5 5.0-9.0 UA UROBILINOGEN <2.0 mg/dL <2.0 UA LEUKOCYTE NEGATIVE Negative Jun 09, 2023 08:32 AM [facility] VITAMIN B12 Specimen Type: SERUM No comment entered. Ordering Provider: BOY DELONG Report Released Date/Time: Dec 14, 2022 10:56 AM Reporting Lab: [address] [address] Performing Lab: [address] [address] VITAMIN B12 580 pg/mL 200-900 Jun 09, 2023 08:32 AM [facility] FERRITIN Specimen Type: SERUM No comment entered. Ordering Provider: BOY DELONG Report Released Date/Time: Dec 14, 2022 10:56 AM Reporting [facility]: [facility] [address] [address] Performing Lab: [facility] [address] [address] FERRITIN 199 ng/mL 20-300 Jun 09, 2023 08:32 AM [facility] RETICULOCYTES Specimen Type: BLOOD No comment entered. Ordering Provider: BOY DELONG Report Released Date/Time: Dec 14, 2022 10:56 AM Reporting Lab: [facility] [address] [address] Performing Lab: [address] [address] RETIC % 1.1 0.6-2.0 RETIC, ABS 61.8 10*3/uL 30.0-90.0 Ret-He % 31.3 27.9-42.0 Jun 09, 2023 08:32 AM [facility] CBC AND DIFF (AUTO) Specimen Type: BLOOD No comment entered. Ordering Provider: BOY DELONG Report Released Date/Time: Dec 14, 2022 10:56 AM Reporting Lab: [facility] [address] [address] Performing Lab: [address] [address] WBC 4.38 10*3/uL L 4.50-11.00 RBC 5.42 10*6/uL 4.23-5.66 HGB 15.0 g/dL 12.8-17 HCT 44.9 39.2-50.4 MCV 82.8 fL 82-99 MCHC 33.4 g/dL 30.8-35.1 PLT 265 10*3/uL 140-360 RDW-CV 12.8 12.0-16.0 Dixon, Abs 0.37 10*3/uL 0.30-1.10 MCH 27.7 pg 26.2-32.6 Neut % 56.0 43.7-75.8 Lymph % 31.7 14.0-42.3 Dixon % 8.4 5.1-13.7 Eos % 3.0 0.4-6.8 Baso % 0.7 0.1-2.0 Neut, Abs 2.45 10*3/uL 2.20-7.60 Lymph, Abs 1.39 10*3/uL 1.00-3.20 Eos, Abs 0.13 10*3/uL 0.03-0.44 Baso, Abs 0.03 10*3/uL 0.01-0.13 Immature Gran % 0.2 0.0-0.7 Immature Gran, Abs 0.01 10*3/uL 0.00-0.06 Jun 09, 2023 08:32 AM [facility] HEMOGLOBIN A1C PANEL Specimen Type: BLOOD Comment: [...] Dec 14, 2022 10:56 AM Reporting Lab: [facility] [address] [address] Performing Lab: [facility] [address] [address] HEMOGLOBIN A1C 5.8 H 4.0-5.6 Jun 09, 2023 08:32 AM [facility] PSA Specimen Type: SERUM No comment entered. Ordering Provider: BOY DELONG Report Released Date/Time: Dec 14, 2022 10:56 AM Reporting Lab: [facility] [address] [address] Performing Lab: [facility] [address] [facility] [address] PSA 2.13 ng/mL 0.00-4.00 Jun 09, 2023 08:32 AM [facility] TSH Specimen Type: SERUM No comment entered. Ordering Provider: BOY DELONG Report Released Date/Time: Dec 14, 2022 10:56 AM Reporting Lab: [facility] [address] [address] Performing Lab: [facility] [address] [address] TSH 2.27 u[IU]/mL 0.35-5.00 Jun 09, 2023 08:32 AM [facility] BASIC METABOLIC PANEL (fasting) Specime n Type: SERUM No comment entered. Ordering Provider: BOY DELONG Report Released Date/Time: Dec 14, 2022 10:56 AM Reporting Lab: [address] [address] Performing Lab: [address] [address] UREA NITROGEN 15 mg/dL 7-25 GLUCOSE 113 mg/dL H 65-100 SODIUM 141 mmol/L 135-145 POTASSIUM 3.9 mmol/L 3.5-5.0 CHLORIDE 108 mmol/L 100-110 CO2 24 meq/L 20-30 CREATININE, Serum 1.17 mg/dL 0.50-1.40 eGFR(CKD-EPI 2020) 71 mL/min >60 Jun 09, 2023 08:32 AM [facility] LIVER FUNCTION Specimen Type: SERUM No comment entered. Ordering Provider: BOY DELONG Report Released Date/Time: Dec 14, 2022 10:56 AM Reporting Lab: [address] [address] Performing Lab: [address] [address] PROTEIN,TOTAL 6.9 g/dL 6.0-8.3 ALBUMIN 4.0 g/dL 3.5-5.0 ALKALINE PHOSPHATASE 66 U/L 40-150 AST 19 U/L 5-34 ALT 27 U/L BILIRUBIN, TOTAL 0.5 mg/dL 0.2-1.2 Jun 09, 2023 08:32 AM [facility] LIPID PANEL FASTING Specimen Type: SERUM No comment entered. Ordering Provider: BOY DELONG Report Released Date/Time: Dec 14, 2022 10:56 AM Reporting Lab: [address] [address] Performing Lab: [address] [address] CHOLESTEROL 173 mg/dL TRIGLYCERIDE 81 mg/dL 0-150 LDL calculated 118 mg/dL 0-129 CHOL/HDL 4.4 HDL CHOLESTEROL 39 mg/dL L 40-60 Jun 09, 2023 08:32 AM [facility] CALCIUM Specimen Type: SERUM No comment entered. Ordering Provider: BOY DELONG Report Released Date/Time: Dec 14, 2022 10:56 AM Reporting Lab: [address] [address] Performing Lab: [address] [address] CALCIUM 8.8 mg/dL 8.5-10.2 Jun 09, 2023 08:32 AM [facility] URIC ACID Specimen Type: SERUM No comment entered. Ordering Provider: BOY DELONG Report Released Date/Time: Dec 14, 2022 10:56 AM Reporting Lab: [address] [address] Performing Lab: [address] [address] URIC ACID 5.6 mg/dL 3.5-7.2 Radiology Reports: [...] the Encounter. The data comes from all [facility] facilities. Date/Time Radiology Report Provider Source Jun 24, 2023 10:59 AM ABDOMINAL ULTRASOUND: LUPILLO HONG [id number] -[id number] M Exm Date: JUN 24, 2023@10:59 Req Phys: BOY DELONG Pat Loc: CWM/SO/PACT 3 WH (Req'g Loc) Img Loc: ULTRASOUND Service: Unknown (Case [id number] COMPLETE) [employer] (US Detailed) CPT:47562 Reason for Study: umbilical hernia Clinical History: need views before seeing karen trujillo Report Status: Verified Date Reported: JUN 25, 2023 Date Verified: JUN 25, 2023 Research Agricultural Engineer E-Sig: Report: [employer] [PR[place]] Clinical History: Umbilical hernia. [...] containing hernia. READING PHYSICIAN: Mikhail Andrews MD -[id number] 06/24/2023 23:15 PDT [facility] National Teleradiology Program [phone] (For Medical Practitioner Use Only) Attention Patients / Veterans: If you have questions or concerns about these test results, please contact your ordering provider or primary care team. Primary Diagnostic Code: NO ALERT REQUIRED Primary Interpreting Staff: RADIOLOGY,OUTSIDE SERVICE, Staff Physician / RADIOLOGY,OUTSIDE SERVICE [facility] Encounter Notes: All associated encounter notes This section contains the clinical notes associated to the Encounter. Date/Time Encounter Note(s) Provider Source Jun 24, 2023 02:18 PM PHYSICAL MEDICINE REHAB PHYSICIAN NOTE: LOCAL TITLE: PM&R FOLLOW-UP STANDARD TITLE: PHYSICAL MEDICINE REHAB PHYSICIAN NOTE DATE OF NOTE: JUN 24, 2023@14:18 ENTRY DATE: JUN 24, 2023@14:18:30 AUTHOR: JAM MCFADDEN COSIGNER: URGENCY: STATUS: COMPLETED [facility] ([facility]) Standard Documentation [facility] Clinician Resources Only: E911 (Emergency Call Relay Center): [phone] National Veterans Crisis Line - 988 then press #1. CW Suicide Coordinator [phone], Ext. [phone]; Back-up Ext. [phone] EDWARD Hoffman, Valente VILLARREAL [phone] Introduction: Visit is being conducted by [facility]. [place] identified with 2 identifiers: [X] Full Name [X] Date of [ ] VA ID Card Emergency Plan: [place] confirmed and/or provided the following information in case of emergency or technology failure. PATIENT PHONE - PHONE NUMBER [CELLULAR] - NONE FOUND Is patient phone number correct, if not, enter below: 's phone number: LUPILLO HONG [address], [place], [address] Holloway's present location and address for appointment: At [place] 's emergency contact name and phone number: on file reported that location is private and safe: Yes Informed Consent: informed of the risks and benefits of Telehealth video care. Holloway has the right to refuse video services. If refuses video visit, a arzh-ay-[id number] visit will be scheduled. Holloway verbalized consent for this video visit: Yes provided consent for any other persons present for visit: N/A If yes, who and relationship to patient: Secure visit: Visit was locked for security and privacy:Yes seen today for video communication. Reevaluation of Status post Hyaluronic injections. Hyaluronic acid injections did not provide a great deal of change in function. He was helping to have more painless days but still is experiencing discomfort with repeated activities. Sitting for long periods of time aggravates symptoms as does stair climbing and walking. Discussed goals which are to be able to finish and walk on uneven surfaces comfortably. 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 He has not been experiencing any effusions. He has ongoing aching sensation particularly with sitting for long periods of time. He has not attended physical therapy recently. We have discussed treatment options including use of off thermite bomb loader braces. He has bilateral medial compartment arthritis by x-ray which is fairly severe. He does use his neoprene brace which he finds to be helpful. Assessment and plan: Bilateral osteoarthritis of the knees. Will refer to physical therapy for strengthening of muscles around the pelvis as well as anterior tibialis. Optimize function about the ankles. Off thermite bomb loader braces to be provided by physical therapy. does not wish to consider surgical intervention as of yet. If he should decide to consider hyaluronic acid injections once again in 6 months, we can trial him with Euflexxa. Total time spent 20 minutes Medication Reconciliation: Outpatient: Has the patient been taking medications as documented in the EMLR? YES: The patient has been taking medications as documented in the EMLR. Essential Medication List for Review used to complete this medication reconciliation. INCLUDED IN THIS LIST: Alphabetical list of active outpatient prescriptions dispensed from this [place] (local) and dispensed from another VA or [...] whether with a VA or non-VA provider. Medication List: JLV Link Data on this list may not be complete. Please check JLV. Allergies/ADRs (Tool #5) FACILITY ALLERGY/ADR -------- No Remote Allergy/ADR Data available for this patient [place] [facility] [place] [facility] No Known Allergies Med. Reconciliation (Tool #1) INCLUDED IN THIS LIST: Alphabetical list of active outpatient prescriptions dispensed from this VA (local) and dispensed from another VA or DoD facility (remote) as well as inpatient orders (local pending and active), local clinic medications, locally documented non-VA medications, and local prescriptions that have or been discontinued in the past 90 days. Non-VA Meds Last Documented On: Jun 05, 2021 NOTE The display of VA prescriptions dispensed from another VA or DoD facility (remote) is limited to active outpatient prescription entries matched to National Drug File at the originating site and may not include some items such as investigational drugs, compounds, etc. NOT INCLUDED IN THIS LIST: Medications self-entered by the patient into personal health records (i.e. [employer]) are NOT included in this list. Non-VA medications documented outside this [place], remote inpatient orders (regardless of status) and remote clinic medications are NOT included in this list. The patient and provider must always discuss medications the patient is taking, regardless of where the medication was dispensed or obtained. OUTPT ALBUTEROL 90MCG (CFC-F) 200D ORAL INHL (Status = Active) INHALE 1 PUFF BY MOUTH ONCE DAILY NEEDED FOR BRONCHOSPASM Rx# [id number] Last Released: 06/10/23 Qty/Days Supply: 04/05 Rx Expiration Date: 06/10/24 Refills Remainin Indication: FOR BRONCHOSPASM OUTPT AMLODIPINE BESYLATE 10MG TAB (Status = Discontinued) TAKE ONE TABLET BY MOUTH ONCE DAILY FOR BLOOD PRESSURE/HEART, DO NOT TAKE WITH GRAPEFRUIT JUICE Rx# [id number] Last Released: 12/14/22 Qty/Days Supply: Rx Expiration Date: 12/15/23 Refills Remainin OUTPT AMLODIPINE BESYLATE 10MG TAB (Status = Active) TAKE ONE TABLET BY MOUTH ONCE DAILY FOR BLOOD PRESSURE/HEART, DO NOT TAKE WITH GRAPEFRUIT JUICE Rx# [id number] Last Released: 04/04/23 Qty/Days Supply: Rx Expiration Date: 04/04/24 Refills Remainin OUTPT DICLOFENAC NA 1% TOP GEL (Status = ) APPLY 4 GRAMS TOPICALLY FOUR TIMES A DAY FOR OSTEOARTHRITIS - USE DOSING CARD PROVIDED IN BOX Rx# [id number] Last Released: 10/13/22 Qty/Days Supply: Rx Expiration Date: 05/15/23 Refills Remainin Indication: FOR JOINT PAIN OUTPT HYALURONATE NA (DUROLANE)20MG/ML SYR 3ML (Status = Active) INJECT 60MG INTRA-ARTICULAR ONE TIME OSTEOARTHRITIS OF THE KNEE Rx# [id number] Last Released: 05/04/23 Qty/Days Supply: Rx Expiration Date: 04/01/24 Refills Remainin Indication: OSTEOARTHRITIS OF THE KNEE OUTPT HYDROCHLOROTHIAZIDE 25MG TAB (Status = Discontinued) TAKE ONE-HALF TABLET BY MOUTH ONCE DAILY Rx# [id number] Last Released: 12/14/22 Qty/Days Supply: Rx Expiration Date: 12/15/23 Refills Remainin Indication: FOR HIGH BLOOD PRESSURE OUTPT HYDROCHLOROTHIAZIDE 25MG TAB (Status = Active) TAKE ONE-HALF TABLET BY MOUTH ONCE DAILY Rx# [id number] Last Released: 04/04/23 Qty/Days Supply: Rx Expiration Date: 04/04/24 Refills Remainin Indication: FOR HIGH BLOOD PRESSURE OUTPT LORATADINE 10MG TAB (Status = Active) TAKE ONE TABLET BY MOUTH ONCE DAILY FOR ALLERGY Rx# [id number] Last Released: 06/10/23 Qty/Days Supply: Rx Expiration Date: 06/10/24 Refills Remainin Indication: FOR ALLERGY OUTPT LOSARTAN 25MG TAB (Status = Discontinued) TAKE ONE TABLET BY MOUTH ONCE DAILY FOR BLOOD PRESSURE/HEART Rx# [id number] Last Released: 05/12/23 Qty/Days Supply: Rx Expiration Date: 04/04/24 Refills Remainin Indication: FOR HIGH BLOOD PRESSURE OUTPT LOSARTAN 25MG TAB (Status = Discontinued) TAKE ONE TABLET BY MOUTH ONCE DAILY FOR BLOOD PRESSURE/HEART Rx# [id number] Last Released: 05/31/23 Qty/Days Supply: Rx Expiration Date: 08/22/23 Refills Remainin Indication: FOR HIGH BLOOD PRESSURE OUTPT LOSARTAN 25MG TAB (Status = Active/Suspended) TAKE ONE TABLET BY MOUTH ONCE DAILY FOR BLOOD PRESSURE/HEART Rx# [id number] Last Released: QtDays Supply: Rx Expiration Date: 09/08/23 Refills Remainin Indication: FOR HIGH BLOOD PRESSURE SUPPLIES PHARMACY TERMS AND POSSIBLE PATIENT ACTIONS INPT = [place] inpatient order IV = [place] intravenous medication OUTPT = [place] outpatient prescription PHARMACY POSSIBLE PATIENT TERMS EXPLANATION ACTIONS -------- --- ACTIVE A prescription that can be If you have refills, filled at the local [place] pharmacy. you may request a refill of this prescription from your VA pharmacy. CLINIC A medication you received during If you have questions a visit to a [place] clinic or about this medication emergency department. contact your [place] healthcare team. DISCONTINUED A prescription your provider has Contact your [place] stopped. It is no longer healthcare team if you available to be sent to you or need more of this picked up at the [place] pharmacy medication. window. A prescription which is too old Contact your VA to fill. This does not refer to healthcare team if you the expiration date of the need more of this medication in the container. medication. NON-VA A medication that came from If this medication someplace other than a VA information is pharmacy. This may be a incorrect or out of prescription from either the VA date, please tell your or non VA providers that was VA healthcare team. filled outside the VA. Or, it may be an [id number]-[id number] (OTC), herbal, dietary supplements or sample medication. ON HOLD An active prescription that will Contact your VA not be filled until pharmacy pharmacy when you need resolves the issue. more of this medication. PARKED An active prescription that will Contact your VA not be filled until the patient pharmacy when you need requests it. this medication. PENDING This prescription order has been If you have been sent to the pharmacy for review instructed to start and is not ready yet. this medication now, contact your VA pharmacy. SUSPENDED An active prescription that is Contact your [place] not scheduled to be filled yet. pharmacy if you need You should receive it before this medication now. you run out. ======== /es/ JAM MCFADDEN [facility] Signed: 06/24/2023 14:37 JAM MCFADDEN [place] [facility]
--- OUTSIDE RECORDS SUMMARY | 2024-02-15 02:49 | XMS_ITS | Encounter Summary ---
Author Name [place] Address [address] [place] [address] Care Team Providers Care Body Hanger Name Role Phone BOY DELONG Primary Care [...] RX PRESCRIPT ION HEALT H [place] [facility] Mar 07, 2020 [facility] [id number] MARGARETH HONG RRYL PATIENT Selected Encounter This section includes the information on record at [place] for the Encounter. Date/Time Encounter Type Encounter Description Reason Provider Source Aug 19, 2023 10:00 AM SELF CARE MNGMENT TRAINING PHYSICAL THERAPY ICD-10-CM M17.0 Bilateral primary osteoarthritis of knee LUISANA CHINO IHRosibel Encounter Template Text not used by [place] Assessments - Encounter Diagnoses This section includes the primary and secondary diagnoses documented for the Encounter. Date/Time Primary/Secondary Diagnosis Diagnosis Name Provider Source Aug 19, 2023 10:35 AM PRIMARY Bilateral primary osteoarthritis of knee FLETCHER [...] 20 appointments. The data comes from all [place] treatment facilities. Appointment Date/Time Appointment Type Appointme nt Facility Name Sep 09, 2023 09:30 AM AMBULATORY [place]ATRY [facility] [place] [facility] Oct 14, 2023 09:30 AM AMBULATORY - [facility]IATRY [facility] [place] [facility] Oct 28, 2023 10:00 AM AMBULATORY - PS[facility]IATRY [facility] [place] [facility] Nov 11, 2023 11:00 AM AMBULATORY - PS[facility]CHIATRY [facility] [place] [facility] Nov 14, 2023 03:00 PM AMBULATORY - MEDICINE [facility] [place] [facility] Nov 17, 2023 08:00 AM AMBULATORY - MEDICINE [place] [facility] [facility] Jan 06, 2024 10:00 AM AMBULATORY - MEDICINE [facility] Jan 10, 2024 11:15 AM AMBULATORY - NONE [facility] [place] [facility] Jan 10, 2024 11:30 AM AMBULATORY - NONE [facility] [place] [facility] Jan 13, 2024 10:00 AM AMBULATORY - PS[facility]CHIATRY [facility] [place] [facility] Jan 13, 2024 01:00 PM AMBULATORY - MEDICINE [facility] [place] [facility] Feb 03, 2024 03:30 PM AMBULATORY - MEDICINE [facility] Feb 17, 2024 11:00 AM AMBULATORY - REHAB [facility] [place] Social History: Smoking Status (Most current) and Tobacco Use (All prior to encounter date) This section includes the most current, and the historical, smoking and tobacco- related health factors from the [place] facility where the Encounter took place. Current Smoking Status This section includes the most current smoking, or tobacco-related health factor, from the [place] facility where the Encounter took place. Date/Time Current Smoking Status Comment Matthew blankenship Jun 10, 2023 11:30 AM [place]-TOBACCO NEVER USED [place] Tobacco Use History This section includes a history of the smoking, or tobacco-related health factors, that were collected on or before the date of the Encounter. The data comes from the [place] facility where the Encounter took place. Date/Time Smoking Status/Tobacco Use Comment F acility May 14, 2022 11:30 AM [place]-TO[place]ACCO NEVER USED [place] Mar 27, 2021 11:00 AM [place]-TO[place]ACCO NEVER USED [place] Encounter Notes: All associated encounter notes This section contains the clinical notes associated to the Encounter. Date/Time Encounter Note(s) Provider Source Aug 19, 2023 07:24 AM PHYSICAL THERAPY N OTE: LOCAL TITLE: PHYSICAL THERAPY STANDARD TITLE: PHYSICAL THERAPY NOTE DATE OF NOTE: AUG 19, 2023@07:24 ENTRY DATE: AUG 19, 2023@07:24:27 AUTHOR: FLETCHER CHINO EXP COSIGNER: URGENCY: STATUS: COMPLETED Initial Evaluation date: 08/03/23 Progress Note Date: 09/03/23 Treatment #: 1 Treatment time: 30 Diagnosis:Bilateral Primary Osteoarthritis of Knee(ICD-10-CM M17.0) Provider:BOY DELONG PT Treatment Precautions: Patient identified by full name and date of SUBJECTIVE: Patient states the knee pain has improved since eval. Has not tried any of the knee exercises yet. OBJECTIVE: INTERVENTIONS: Therapeutic Exercise: Mins: 15 nustep 5mins Standing hip abduction red band 2x15 standing gastroc strtech 2x30s Hamstring stretch with strap 2x30s SLR 15 sidelying clamshell 15reps red band Manual therapy: Mins: Neuro re-ed: Mins: Other: Mins: Modalities: Mins: [] contraindication screen completed prior to modality [] skin intact pre/post modality Access Code: [email or web address] URL: [email or web address] Date: 08/03/2023 Prepared by: Fletcher Chino Exercises [...] 1-2 x daily - 7 x weekly PATIENT EDUCATION: Mins: 10 Patient education was provided for all aspects of care during this clinical encounter. Provided updated written HEP to patient reviewing proper form sets reps and frequency and safety precautions with patient verbalizing and demonstrating good understanding during visit. Provided patient with genutrain A3 knee brace that was ordered after previous visit. Ensure proper fit of device as well as provided education for donning and doffing of this deivce, wear and care. Patient verbalizes good understanding. ASSESSMENT: Patient seen for routine follow up. provided knee brace providing education as described above; good fit and function. Provided instruction through progressions in quad and glute strenghteing exercises which were tolerated well, provided updated written HEP for carryover. PLAN: Progress as tolerated focusing on improving knee ROM, LE flexibility [...] FLETCHER CHINO PT, DPT PHYSICAL THERAPIST Signed: 08/19/2023 10:35 FLETCHER CHINO [place]
--- OUTSIDE RECORDS SUMMARY | 2024-02-15 02:49 | XMS_ITS | Encounter Summary ---
Author Name [facility] [place] Organization [place] Address [address] [place] [address] Care Team Providers Care Digital X Ray Service Engineer Name Role Phone BOY DELONG Primary Care [...] RX PRESCRIPT ION HEALT H [place] [facility] Mar 07, 2020 [facility] [phone] MARGARETH HONG RRYL PATIENT Selected Encounter This section includes the information on record at [place] for the Encounter. Date/Time Encounter Type Encounter Description Reason Pro vider Source Sep 02, 2023 08:57 AM Outpatient Encounter OPTOMETRY IHE Encounter Template Text not used by [place] Plan of Treatment: Future Appointments (+ 6 months) and Future Tests (+/- 45 days) The Plan of Treatment section includes future care activities for the patient from all [place] treatmentfacilities. This section includes future appointments and [...] AMBULATORY - [facility]IATRY [facility] [place] [facility] Oct 14, 2023 09:30 AM AMBULATORY - PS[facility]CHIATRY [facility] [place] [facility] Oct 28, 2023 10:00 AM AMBULATORY - PS[facility]CHIATRY [facility] [place] [facility] Nov 11, 2023 11:00 AM AMBULATORY - PS[facility]CHIATRY [facility] [place] [facility] Nov 14, 2023 03:00 PM AMBULATORY - MEDICINE [facility] [place] [facility] Nov 17, 2023 08:00 AM AMBULATORY - MEDICINE [facility] [place] [facility] Jan 06, 2024 10:00 AM AMBULATORY - MEDICINE [facility] Jan 10, 2024 11:15 AM AMBULATORY - NONE [facility] [place] [facility] Jan 10, 2024 11:30 AM AMBULATORY - NONE [facility] [place] [facility] Jan 13, 2024 10:00 AM AMBULATORY - PS[facility]CHIATRY [facility] [place] [facility] Jan 13, 2024 01:00 PM AMBULATORY - MEDICINE [facility] [place] [facility] Feb 03, 2024 03:30 PM AMBULATORY - MEDICINE [facility] Feb 17, 2024 11:00 AM AMBULATORY - REHAB [facility] Mar 01, 2024 11:00 AM AMBULATORY - MEDICINE [place] [facility] [place] [facility] Encounter Notes: All associated encounter notes This section contains the clinical notes associated to the Encounter. Date/Time Encounter Note(s) Provider Source Sep 02, 2023 08:57 AM ADMINISTRATIVE NOT E: LOCAL TITLE: ADMINISTRATIVE RECALL NOTE STANDARD TITLE: ADMINISTRATIVE NOTE DATE OF NOTE: SEP 02, 2023@08:57 ENTRY DATE: SEP 02, 2023@08:57:45 AUTHOR: REMEDIOS DEL CASTILLO EXP COSIGNER: URGENCY: STATUS: COMPLETED ADMINISTRATIVE RECALL NOTE Has ADDENDA RTC orders: Unable to contact patient: Attempts to contact: 1st attempt: Left voicemail 2nd attempt: Letter mailedDisposition onSep 3rd attempt: 4th attempt: /ivone/ REMEDIOS DEL CASTILLO ADVANCED BANQUET DIRECTOR Signed: 09/02/2023 08:58 09/20/2023 ADDENDUM STATUS: COMPLETED RTC pid 09/02/2023 dispositioned due to veterans failure to respond to all contact efforts per department standards. /ivone/ REMEDIOS DEL CASTILLO ADVANCED BANQUET DIRECTOR Signed: 09/20/2023 09:33 REMEDIOS DEL CASTILLO [place] [facility]
--- OUTSIDE RECORDS SUMMARY | 2024-02-15 02:49 | XMS_ITS ---
Author Name [place] Address [address] [place] [address] Care Team Providers Care Country Printer Name Role Phone BOY DELONG Primary Care [...] [facility] Mar 07, 2020 [facility] [phone] MARGARETH HONG RRYL PATIENT Selected Encounter This section includes the information on record at [place] for the Encounter. Date/Time Encounter Type Encounter Description Reason Pro vider Source Oct 14, 2023 09:30 AM Outpatient Encounter MENTAL HEALTH [facility] IHE Encounter Template Text not used by [place] Plan of Treatment: Future Appointments (+ 6 months) and Future Tests (+/- 45 days) The Plan of Treatment section includes future care activities for the patient from all [place] treatmentfacilities. This section includes future appointments and future orders which are active, pending or scheduled. Future Appointments This section includes appointments that were scheduled to occur 6 months from the date of the Encounter, up to a maximum of 20 appointments. The data comes from all [place] treatment facilities. Appointment Date/Time Appointment Type Appointme nt Facility Name Oct 28, 2023 10:00 AM AMBULATORY - PS[facility]CHIATRY [facility] [place] [facility] Nov 11, 2023 11:00 AM AMBULATORY - PS[facility]CHIATRY [facility] [place] [facility] Nov 14, 2023 03:00 PM AMBULATORY - MEDICINE [facility] [place] [facility] Nov 17, 2023 08:00 AM AMBULATORY - MEDICINE [facility] [place] [facility] Jan 06, 2024 10:00 AM AMBULATORY - MEDICINE [facility] Jan 10, 2024 11:15 AM AMBULATORY - NONE [facility] [place] [facility] Jan 10, 2024 11:30 AM AMBULATORY - NONE [facility] [place] [facility] Jan 13, 2024 10:00 AM AMBULATORY - PSYCHIATRY [facility] [place] [facility] Jan 13, 2024 01:00 PM AMBULATORY - MEDICINE [facility] [place] [facility] Feb 03, 2024 03:30 PM AMBULATORY - MEDICINE [facility] Feb 17, 2024 11:00 AM AMBULATORY - REHAB MEDICIN [facility] Mar 01, 2024 11:00 AM AMBULATORY - MEDICINE [facility] [place] [facility] Apr 06, 2024 10:00 AM AMBULATORY - PSYCHIATRY [facility] [place] [facility] Encounter Notes: All associated encounter notes This section contains the clinical notes associated to the Encounter. Date/Time Encounter Note(s) Provider Source Oct 14, 2023 09:57 AM CLERICAL NOTE: LOCAL TITLE: APPOINTMENT NO SHOW STANDARD TITLE: CLERICAL NOTE DATE OF NOTE: OCT 14, 2023@09:57 ENTRY DATE: OCT 14, 2023@09:57:08 AUTHOR: DIEUDONNE MEEHAN COSIGNER: URGENCY: STATUS: COMPLETED Patient Name: LUPILLO HONG Patient SSN: [id number] Date and time of Appointment No show : 10/14/23 09:30 PATIENT PHONE - PHONE NUMBER [CELLULAR] - NONE FOUND Patient's medical record was reviewed. Follow-up actions were determined and initiated: Please check/complete as applies: [X]Telephoned Directly [ ]Re-scheduled for next available appt [X]Sent a N0-show letter ( must call for appointment) [ ]Other (Emergent/Overbook, etc.): Additional Comments: Vet did not connect to [address] appt. called, to which pt did not respond. vague VM left to return call at [phone]. no-show letter to be sent for rescheduling purposes. Future Clinic Visits 01/06/2024 10:00 CWM/SO/PACT 3 WH /es/ Dieudonne Meehan PharmD Clinical Pharmacist Practitioner Signed: 10/14/2023 09:57 DIEUDONNE MEEHAN [place] [facility]
--- OUTSIDE RECORDS SUMMARY | 2024-02-15 02:49 | XMS_ITS | Encounter Summary ---
Author Name [place] Organization [place] Address [address] [place] [address] Care Team Providers Care Anatomic Pathology Manager Name Role Phone BOY DELONG Primary [...] RX PRESCRIPT ION HEALT H [place] [facility] Mar 07, 2020 [facility] [id number] MARGARETH HONG RRYL PATIENT Selected Encounter This section includes the information on record at [place] for the Encounter. Date/Time Encounter Type Encounter Description Reason Pro vider Source Aug 12, 2023 07:30 AM Outpatient Encounter PM&RS PHYSICIAN IHE Encounter Template Text not used by [place] Plan of Treatment: Future Appointments (+ 6 months) and Future Tests (+/- 45 days) The Plan of Treatment section includes future care activities for the patient from all [place] treatmentfacilities. This section includes future appointments and future orders which are active, pending or scheduled. Future Appointments This section includes appointments that were scheduled to occur 6 months from the date of the Encounter, up to a maximum of 20 appointments. The data comes from all [place] treatment facilities. Appointment Date/Time Appointment Type Appointme nt Facility Name Aug 19, 2023 10:00 AM [facility] Sep 09, 2023 09:30 AM [facility]IAT[facility] [place] [facility] Oct 14, 2023 09:30 AM AMBULATORY - PS[facility]IATRY [facility] [place] [facility] Oct 28, 2023 10:00 AM AMBULATORY - PS[facility]CHIATRY [facility] [place] [facility] Nov 11, 2023 11:00 AM AMBULATORY - PS[facility]CHIATRY [facility] [place] [facility] Nov 14, 2023 03:00 PM AMBULATORY - MEDICINE [facility] [place] [facility] Nov 17, 2023 08:00 AM AMBULATORY - MEDICINE [facility] [place] [facility] Jan 06, 2024 10:00 AM AMBULATORY - MEDICINE [place] [place] Jan 10, 2024 11:15 AM AMBULATORY - NONE [facility] [place] [facility] Jan 10, 2024 11:30 AM AMBULATORY - NONE [facility] [facility] Jan 13, 2024 10:00 AM AMBULATORY - PSYCHIATRY [facility] [facility] Jan 13, 2024 01:00 PM AMBULATORY - MEDICINE [facility] [facility] Feb 03, 2024 03:30 PM AMBULATORY - MEDICINE [place] [place] Encounter Notes: All associated encounter notes This section contains the clinical notes associated to the Encounter. Date/Time Encounter Note(s) Provider Source Aug 15, 2023 07:53 AM ADDENDUM: LOCAL TITLE: Addendum STANDARD TITLE: ADDENDUM DATE OF NOTE: AUG 15, 2023@07:53:03 ENTRY DATE: AUG 15, 2023@07:53:04 AUTHOR: SARITA GREWAL EXP COSIGNER: URGENCY: STATUS: COMPLETED It appears vet hasn't gotten braces yet. Had Durolane 05/22. Do you want him to come in for visit, or vvc? /ivone/ Sarita Grewal RN Med Rehab Signed: 08/15/2023 07:54 Receipt Acknowledged By: 08/15/2023 15:17 /ivone/ JAM MCFADDEN [facility] === --- Original Document --- 08/12/23 ADMINISTRATIVE NOTE: leaving message on [facility] Call Center voicemail wanting to: [x] Speak to provider (name): Jeaneth wanting to know if he can get new injections for (B) knee pain [place] last Med Rehab visit by [facility] Jun [] Schedule a new appointment/ reschedule missed appt.: [] Cancelling an existing appt. [] Other: Department: [xx] Med Rehab Vet [xx] would like [] does not need a call back regarding this matter. Call back phone number left on confirmed same as phone contact on file: Phone: /ivone/ ALFREDO LOWE PHYSICAL THERAPIST Signed: 08/12/2023 17:26 Receipt Acknowledged By: 08/15/2023 07:55 /ivone/ Sarita Grewal RN Med Rehab * AWAITING SIGNATURE * JAM MCFADDEN RACHAEL M [facility] Aug 12, 2023 05:21 PM ADMINISTRATIVE NOTE: LOCAL TITLE: ADMINISTRATIVE NOTE STANDARD TITLE: ADMINISTRATIVE NOTE DATE OF NOTE: AUG 12, 2023@17:21 ENTRY DATE: AUG 12, 2023@17:21:15 AUTHOR: DEMETRI WARE EXP COSIGNER: URGENCY: STATUS: COMPLETED ADMINISTRATIVE NOTE Has ADDENDA leaving message on [facility] Call Center voicemail wanting to: [x] Speak to provider (name): Jeaneth wanting to know if he can get new injections for (B) knee pain last Med Rehab visit by [facility] Jun [] Schedule a new appointment/ reschedule missed appt.: [] Cancelling an existing appt. [] Other: Department: [xx] Med Rehab Vet [xx] would like [] does not need a call back regarding this matter. Call back phone number left on confirmed same as phone contact on file: Phone: /ALFREDO Soto PHYSICAL THERAPIST Signed: 08/12/2023 17:26 Receipt Acknowledged By: 08/15/2023 07:55 /barbara Grewal RN Med Rehab 08/15/2023 15:18 /barbara [facility] 08/15/2023 ADDENDUM STATUS: COMPLETED It appears vet hasn't gotten braces yet. Had Durolane 05/22. Do you want him to come in for visit, or vvc? /barbara Grewal RN Med Rehab Signed: 08/15/2023 07:54 Receipt Acknowledged By: 08/15/2023 15:17 /barbara [facility] 08/15/2023 ADDENDUM STATUS: COMPLETED VVC is adequate. /barbara [facility] Signed: 08/15/2023 15:19 DEMETRI [facility] [place] [facility]
--- OUTSIDE RECORDS SUMMARY | 2024-02-15 02:49 | XMS_ITS ---
Author Name [place] Address [address] [place] [id number] Care Team Providers Care Nurse Advocate Name Role Phone BOY DELONG Primary Care [...] [place] [facility] Mar 07, 2020 [facility] [phone] MARGARETH HONG RRYL PATIENT Selected Encounter This section includes the information on record at [place] for the Encounter. Date/Time Encounter Type Encounter Description Reason Pro vider Source Oct 07, 2023 03:41 PM Outpatient Encounter [facility] I[facility] Encounter Template Text not used by [place] Plan of Treatment: Future Appointments (+ 6 months) and Future Tests (+/- 45 days) The Plan of Treatment section includes future care activities for the patient from all [place] treatmentfacilities. This section includes future appointments and future orders which are active, pending or scheduled. Future Appointments This section includes appointments that were scheduled to occur 6 months from the date of the Encounter, up to a maximum of 20 appointments. The data comes from all [place] treatment facilities. Appointment Date/Time Appointment Type Appointme nt Facility Name Oct 14, 2023 09:30 AM AMBULATORY - PSYCHIATRY [facility] [place] [facility] Oct 28, 2023 10:00 AM AMBULATORY - PSYCHIATRY [facility] [place] [facility] Nov 11, 2023 11:00 AM AMBULATORY - PSYCHIATRY [facility] [place] [facility] Nov 14, 2023 03:00 PM AMBULATORY - MEDICINE [facility] [place] [facility] Nov 17, 2023 08:00 AM AMBULATORY - MEDICINE [facility] [facility] Jan 06, 2024 10:00 AM AMBULATORY - MEDICINE [facility] Jan 10, 2024 11:15 AM AMBULATORY - NONE [facility] [place] [facility] Jan 10, 2024 11:30 AM AMBULATORY - NONE [facility] [facility] Jan 13, 2024 10:00 AM AMBULATORY - PSYCHIATRY [facility] [facility] Jan 13, 2024 01:00 PM AMBULATORY - MEDICINE [facility] [place] [facility] Feb 03, 2024 03:30 PM AMBULATORY - MEDICINE [facility] Feb 17, 2024 11:00 AM AMBULATORY - REHAB MEDICIN [facility] Mar 01, 2024 11:00 AM AMBULATORY - MEDICINE [facility] [facility] Apr 06, 2024 10:00 AM AMBULATORY - PSYCHIATRY [facility] [place] [facility] Encounter Notes: All associated encounter notes This section contains the clinical notes associated to the Encounter. Date/Time Encounter Note(s) Provider Source Oct 07, 2023 03:41 PM ADMINISTRATIVE NOTE: LOCAL TITLE: ADMINISTRATIVE NOTE STANDARD TITLE: ADMINISTRATIVE NOTE DATE OF NOTE: OCT 07, 2023@15:41 ENTRY DATE: OCT 07, 2023@15:41:54 AUTHOR: BALJIT RON EXP COSIGNER: URGENCY: STATUS: COMPLETED ADMINISTRATIVE NOTE Has ADDENDA DAYANARA received a call from who needs help with a community care referral ( or [facility]) or rather consult - he'd like to see a different provider at this point at [facility] or within the community, which ever is more likely to get him seen sooner. He'd also like to see about setting up a comp and pen re-evaluation for MH issues (depression). DAYANARA reached out to MH Team via teams for help with these requests. /ivone/ BALJIT RON ADVANCED CUSTOMER ENGAGEMENT MANAGER Signed: 10/07/2023 15:49 10/07/2023 ADDENDUM STATUS: COMPLETED DAYANARA received information that was relayed to [place] that he could contact community care to be connected with a new therapist, that he can contact Community Care for a status update. Community Care contact information provided to [place]. Also that for the review of comp and pen information, he should contact his [place] provider. This information provided to DAYANARA via teams. /ivone/ BALJIT RON ADVANCED CUSTOMER ENGAGEMENT MANAGER Signed: 10/07/2023 16:26 BALJIT RON [place] [facility]
--- OUTSIDE RECORDS SUMMARY | 2024-02-15 02:49 | XMS_ITS ---
Author Name [facility] [place] Address [address] [place] [address] Care Team Providers Care Teacher Of The Deaf Name Role Phone BOY DLEONG Primary Care Provider Unavailabl e Insurance Providers: [...] RX PRESCRIPT ION HEALT H NEW ENGL [facility] Mar 07, 2020 [facility] [id number] MARGARETH HONG RRYL PATIENT Selected Encounter This section includes the information on record at [place] for the Encounter. Date/Time Encounter Type Encounter Description Reason Pro vider Source Aug 10, 2023 01:16 PM Outpatient Encounter PHYSICAL THERAPY IHE Encounter Template Text not used by [place] Plan of Treatment: Future Appointments (+ 6 months) and Future Tests (+/- 45 days) The Plan of Treatment section includes future care activities for the patient from all [place] treatmentfacilities. This section includes future appointments and future orders which are active, pending or scheduled. Future Appointments This section includes appointments that were scheduled to occur 6 months from the date of the Encounter, up to a maximum of 20 appointments. The data comes from all [place] treatment facilities. Appointment Date/Time Appointment Type Appointme nt Facility Name Aug 11, 2023 10:40 AM AMBULATORY - MEDICINE [facility] [place] [facility] Aug 19, 2023 10:00 AM [facility] [place] Sep 09, 2023 09:30 AM AMBULATORY - PSYCHIATRY [facility] [place] [facility] Oct 14, 2023 09:30 AM AMBULATORY - PSYCHIATRY [facility] [place] [facility] Oct 28, 2023 10:00 AM AMBULATORY - PSYCHIATRY [facility] [place] [facility] Nov 11, 2023 11:00 AM AMBULATORY - PSYCHIATRY [facility] [place] [facility] Nov 14, 2023 03:00 PM AMBULATORY - MEDICINE [facility] [place] [facility] Nov 17, 2023 08:00 AM AMBULATORY - MEDICINE [facility] [place] [facility] Jan 06, 2024 10:00 AM AM[facility]ATORY - [facility]ICINE [facility] Jan 10, 2024 11:15 AM AMBULATORY - NONE [facility] [place] [facility] Jan 10, 2024 11:30 AM AMBULATORY - NONE [facility] [place] [facility] Jan 13, 2024 10:00 AM AMBULATORY - PSYCHIATRY [facility] [place] [facility] Jan 13, 2024 01:00 PM AMBULATORY - MEDICINE [facility] [place] [facility] Feb 03, 2024 03:30 PM [facility] Encounter Notes: All associated encounter notes This section contains the clinical notes associated to the Encounter. Date/Time Encounter Note(s) Provider Source Aug 10, 2023 01:16 PM PHYSICAL MEDICINE REHAB SECURE MESSAGING: LOCAL TITLE: PHYSICAL THERAPY SECURE MESSAGING STANDARD TITLE: PHYSICAL MEDICINE REHAB SECURE MESSAGING DATE OF NOTE: AUG 10, 2023@13:16 ENTRY DATE: AUG 10, 2023@14:16:10 AUTHOR: BONI SEVILLA COSIGNER: URGENCY: STATUS: COMPLETED ------Original Message - Sent: 08/10/2023 11:23 AM ET From: LUPILLO HONG To: PHYSICAL THERAPY_SPOPC! Subject: General:knee sleeve hello, i would like to know if the knee sleeve that was ordered last tue has arrived. i cannot not get through via phone to ask. i would like to come pick it up at [facility] per my discussion with the therapist... thanks ------Original Message - Sent: 08/10/2023 02:15 PM ET From: BONI SEVILLA To: LUPILLO HONG Subject: General:knee sleeve Good afternoon Lupillo, I did get your phone message. I was just waiting for today's deliveries. Unfortunately, we have not received the knee brace yet. I will call you as soon as we receive it. Thanks, Rina /ivone/ BONI SEVILLA Signed: 08/10/2023 14:16 BONI SEVILLA [place]
--- OUTSIDE RECORDS SUMMARY | 2024-02-15 02:49 | XMS_ITS | Encounter Summary ---
Author Name Department of Vetera Affairs [place] Organization [place] Address [address] [place] [address] Care Team Providers Care Server Assistant Name Role Phone BOY DELONG Primary Care [...] RX PRESCRIPT ION HEALT H [place] ENGL [facility] Mar 07, 2020 [facility] [id number] 0701 MARGARETH HONG RRYL PATIENT Selected Encounter This section includes the information on record at [place] for the Encounter. Date/Time Encounter Type Encounter Description Reason Pro vider Source Sep 02, 2023 08:58 AM Outpatient Encounter OPTOMETRY IHE Encounter Template Text not used by ID [...] AMBULATORY - PSYCHIATRY [facility] [place] [facility] Oct 14, 2023 09:30 AM AMBULATORY - PSYCHIATRY [facility] [place] [facility] Oct 28, 2023 10:00 AM AMBULATORY - PSYCHIATRY [facility] [place] [facility] Nov 11, 2023 11:00 AM AMBULATORY - PSYCHIATRY [facility] [place] [facility] Nov 14, 2023 03:00 PM AMBULATORY - MEDICINE [facility] [place] [facility] Nov 17, 2023 08:00 AM AMBULATORY - MEDICINE [facility] [place] [facility] Jan 06, 2024 10:00 AM AMBULATORY - MEDICINE [facility] Jan 10, 2024 11:15 AM AMBULATORY - NONE [facility] [place] [facility] Jan 10, 2024 11:30 AM AMBULATORY - NONE [facility] [place] [facility] Jan 13, 2024 10:00 AM AMBULATORY - PSYCHIATRY [facility] [place] [facility] Jan 13, 2024 01:00 PM AMBULATORY - MEDICINE [facility] [place] [facility] Feb 03, 2024 03:30 PM AMBULATORY - MEDICINE [facility] Feb 17, 2024 11:00 AM AMBULATORY - REHAB [facility] Mar 01, 2024 11:00 AM AMBULATORY - MEDICINE [place] [facility] [place] [facility] Encounter Notes: All associated encounter notes This section contains the clinical notes associated to the Encounter. Date/Time Encounter Note(s) Provider Source Sep 02, 2023 08:58 AM LETTERS: LOCAL TITLE: PATIENT LETTER (B) STANDARD TITLE: LETTERS DATE OF NOTE: SEP 02, 2023@08:58 ENTRY DATE: SEP 02, 2023@08:58:29 AUTHOR: REMEDIOS DEL CASTILLO EXP COSIGNER: URGENCY: STATUS: COMPLETED [facility] Toll Free Number , ext [phone] SEP 02, 20[address] HONG [address] [place] [id number] Dear LUPILLO HONG Thank you for choosing the Department of [facility] ([place]) [facility] as your primary choice for health care. As a partner in your health care, we are contacting you in writing since we have been unsuccessful in our attempts to reach you to date. We want to assure you we are doing everything possible to schedule Veterans for their [place] medical care appointments. Our records indicate you are due for an appointment in OPTOMETRY Thank you for choosing [facility] ([place]) [facility] as your primary choice for health care. As a partner in your health care, we are contacting you in writing since we have been unsuccessful in our attempts to reach you to date. We want to assure you we are doing everything possible to schedule Veterans for their [place] medical care appointments. If you would like to be seen, please contact [facility] at [phone] Ext. [phone] to schedule an appointment. Thank you for your service to our nation, and we look forward to hearing from you soon. Sincerely, [facility] [address] [facility] [address] [place] [address] [place] [address] ext. [phone] [facility] [address] [facility] [address] [place] [address] [place] [address] [phone] [facility] [address] [address] [place] [address] ext. [phone] [facility] [address] [place] [address] ext. [phone] REMEDIOS DEL CASTILLO ID [facility]
--- OUTSIDE RECORDS SUMMARY | 2024-02-15 02:49 | XMS_ITS ---
Author Name [facility] [place] Address [address] [place] [address] Care Team Providers Care Director Online Marketing Name Role Phone BOY DELONG Primary Care [...] Member ID Insurance Provider's Telephone Number Policy Acnales's Name Patient's Relationship to Policy Canales [employer]UM RX PRESCRIPT ION HEALT H [place] [facility] Mar 07, 2020 [facility] [id number] 0701 MARGARETH HONG RRYL PATIENT Selected Encounter This section includes the information on record at [place] for the Encounter. Date/Time Encounter Type Encounter Description Reason Pro vider Source Sep 06, 2023 01:55 PM Outpatient Encounter PM&RS PHYSICIAN IHE Encounter Template Text not used by [place] Plan of Treatment: Future Appointments (+ 6 months) and Future Tests (+/- 45 days) The Plan of Treatment section includes future care activities for the patient from all [place] treatmentfacilities. This section includes future appointments and future orders which are active, pending or scheduled. Future Appointments This section includes appointments that were scheduled to occur 6 months from the date of the Encounter, up to a maximum of 20 appointments. The data comes from all [place] treatment facilities. Appointment Date/Time Appointment Type Appointme nt Facility Name Sep 09, 2023 09:30 AM AMBULATORY - PSYCHIATRY [facility] [place] [facility] Oct 14, 2023 09:30 AM AMBULATORY - PSYCHIATRY [facility] [place] [facility] Oct 28, 2023 10:00 AM AMBULATORY - PSYCHIATRY [facility] [place] [facility] Nov 11, 2023 11:00 AM AMBULATORY - PSYCHIATRY [facility] [place] [facility] Nov 14, 2023 03:00 PM AMBULATORY - MEDICINE [facility] [place] [facility] Nov 17, 2023 08:00 AM AMBULATORY - MEDICINE [facility] [place] [facility] Jan 06, 2024 10:00 AM AMBULATORY - MEDICINE [facility] Jan 10, 2024 11:15 AM AMBULATORY - NONE [facility] [place] [facility] Jan 10, 2024 11:30 AM AMBULATORY - NONE [facility] [place] [facility] Jan 13, 2024 10:00 AM AMBULATORY - PSYCHIATRY [facility] [place] [facility] Jan 13, 2024 01:00 PM AMBULATORY - MEDICINE [facility] [place] [facility] Feb 03, 2024 03:30 PM [facility] Feb 17, 2024 11:00 AM AMBULATORY - REHAB [facility] Mar 01, 2024 11:00 AM AMBULATORY - MEDICINE [place] [facility] [place] [facility] Encounter Notes: All associated encounter notes This section contains the clinical notes associated to the Encounter. Date/Time Encounter Note(s) Provider Source Sep 06, 2023 01:55 PM ADMINISTRATIVE NOT E: LOCAL TITLE: ADMINISTRATIVE RECALL NOTE STANDARD TITLE: ADMINISTRATIVE NOTE DATE OF NOTE: SEP 06, 2023@13:55 ENTRY DATE: SEP 06, 2023@13:55:25 AUTHOR: SABRINA GABRIEL EXP COSIGNER: URGENCY: STATUS: COMPLETED ADMINISTRATIVE RECALL NOTE Has ADDENDA RTC orders: Unable to contact patient: Attempts to contact: 1st attempt: WILL CB 2nd attempt: Letter mailedDisposition onSep 3rd attempt: 4th attempt: /ivone/ SABRINA GABRIEL ADVANCED BREAKDOWN MAN Signed: 09/06/2023 13:55 09/20/2023 ADDENDUM STATUS: COMPLETED RTC 09/21/2023 dispositioned due to veterans failure to respond to all contact efforts per department standards. Dispositioned on 09/21/2023. /ivone/ SABRINA GABRIEL ADVANCED BREAKDOWN MAN Signed: 09/20/2023 15:36 SABRINA GABRIEL [facility] [place] [facility] Sep 06, 2023 01:55 PM LETTERS: LOCAL TITLE: PATIENT LETTER (B) STANDARD TITLE: LETTERS DATE OF NOTE: SEP 06, 2023@13:55 ENTRY DATE: SEP 06, 2023@13:56:01 AUTHOR: SABRINA GABRIEL EXP COSIGNER: URGENCY: STATUS: COMPLETED SEP 06, 2023 LUPILLO HONG [address] [place], [place] [address] Dear LUPILLO HONG Thank you for choosing the Department of [facility] ([place]) [facility] as your primary choice for health care. As a partner in your health care, we are contacting you in writing since we have been unsuccessful in our attempts to reach you to date. We want to assure you we are doing everything possible to schedule Veterans for their [place] medical care appointments. Our records indicate you are due for an appointment in MEDICAL REHAB . If you would like to be seen, please contact [facility] at ext. [phone] to schedule an appointment. Thank you for your service to our nation, and we look forward to hearing from you soon. Sincerely, [facility] [address] [facility] [address] [place] [address] [place] [address] [facility] [address] [facility] [address] [place] [address] [place] [address] ext. [phone] [facility] [address] [facility] [address] [place] [address] [place] [address] ext. [phone] SABRINA GABRIEL [facility] [place] [facility]
--- OUTSIDE RECORDS SUMMARY | 2024-02-15 02:49 | XMS_ITS | Encounter Summary ---
Author Name [facility] [place] Organization [place] Address [address] [place] [address] Care Team Providers Care Facial Operator Name Role Phone BOY DELONG Primary Care [...] NEW ENGL [facility] Mar 07, 2020 [facility] [id number] MARGARETH HONG RRYL PATIENT Selected Encounter This section includes the information on record at [place] for the Encounter. Date/Time Encounter Type Encounter Description Reason Pro vider Source Sep 21, 2023 10:08 AM Outpatient Encounter PRIMARY CARE/MEDICINE IHE Encounter Template Text not used by [place] Plan of Treatment: Future Appointments (+ 6 months) and Future Tests (+/- 45 days) The Plan of Treatment section includes future care activities for the patient from all [place] treatmentfacilities. This section includes future appointments and future orders which are active, pending or scheduled. Future Appointments This section includes appointments that were scheduled to occur 6 months from the date of the Encounter, up to a maximum of 20 appointments. The data comes from all [place] treatment facilities. Appointment Date/Time Appointment Type Appointme nt Facility Name Oct 14, 2023 09:30 AM AMBULATORY - PSYCHIATRY [facility] [place] [facility] Oct 28, 2023 10:00 AM AMBULATORY - PSYCHIATRY [facility] [place] [facility] Nov 11, 2023 11:00 AM AMBULATORY - PSYCHIATRY [facility] [place] [facility] Nov 14, 2023 03:00 PM AMBULATORY - MEDICINE [facility] [place] [facility] Nov 17, 2023 08:00 AM AMBULATORY - MEDICINE [facility] [place] [facility] Jan 06, 2024 10:00 AM AMBULATORY - MEDICINE [facility] Jan 10, 2024 11:15 AM AMBULATORY - NONE [facility] [place] [facility] Jan 10, 2024 11:30 AM AMBULATORY - NONE [facility] [place] [facility] Jan 13, 2024 10:00 AM AMBULATORY - PSYCHIATRY [facility] [place] [facility] Jan 13, 2024 01:00 PM AMBULATORY - MEDICINE [facility] [place] [facility] Feb 03, 2024 03:30 PM AMBULATORY - MEDICINE [facility] Feb 17, 2024 11:00 AM [facility] Mar 01, 2024 11:00 AM AMBULATORY - MEDICINE [place] [facility] [facility] Encounter Notes: All associated encounter notes This section contains the clinical notes associated to the Encounter. Date/Time Encounter Note(s) Provider Source Sep 21, 2023 10:08 AM PRIMARY CARE SECUR E MESSAGING: LOCAL TITLE: PRIMARY CARE SECURE MESSAGING STANDARD TITLE: PRIMARY CARE SECURE MESSAGING DATE OF NOTE: SEP 21, 2023@10:08 ENTRY DATE: SEP 21, 2023@11:08:13 AUTHOR: ANITA MANUEL EXP COSIGNER: URGENCY: STATUS: COMPLETED ------Original Message -------- Sent: 09/21/2023 09:30 AM ET From: LUPILLO HONG To: Chelsea DELONG_PRIMARY CARE_SPOPC Subject: Appointment:Appointment Inquiry 1) i had to cancel my video conference for a benefit increase last teus but i have not been contacted for a new one, i would like to schedule another one 2) i would like to change my therapist with audie street /ivone/ JT MANUEL Advanced Mobile Ui Designer Signed: 09/21/2023 11:08 Receipt Acknowledged By: 09/21/2023 11:56 /ivone/ LJ ASHLEY PSYD Clinical Psychologist ANITA MANUEL [facility]
--- OUTSIDE RECORDS SUMMARY | 2024-02-15 02:49 | XMS_ITS ---
Author Name [place] Address [address] [place] [address] Care Team Providers Care Hog Feeder Name Role Phone BOY DELONG Primary Care [...] OPTUM RX PRESCRIPT ION HEALT H NEW [facility] Mar 07, 2020 [facility] [id number] MARGARETH HONG RRYL PATIENT Selected Encounter This section includes the information on record at [place] for the Encounter. Date/Time Encounter Type Encounter Description Reason Provider Source Sep 09, 2023 09:30 AM MTMS BY PHARM ADDL 15 MIN [facility] - IND ICD-10-CM F32.1 Major depressive disorder, single episode, moderate PRETTY MEEHAN Rosibel Encounter Template Text not used by [place] Assessments - Encounter Diagnoses This section includes the primary and secondary diagnoses documented for the Encounter. Date/Time Primary/Secondary Diagnosis Diagnosis Name Provider Source Sep 09, 2023 10:55 AM PRIMARY Major depressive disorder, single episode, moderate PRETTY MEEHAN [facility] Plan of Treatment: Future Appointments (+ 6 months) and Future Tests (+/- 45 days) The Plan of Treatment section includes future care activities for the patient from [facility] [place] [facility]. This section includes future appointments and future orders which are active, pending or scheduled. Future Appointments This section includes appointments that were scheduled to occur 6 months from the date of the Encounter, up to a maximum of 20 appointments. The data comes from all [place] treatment facilities. Appointment Date/Time Appointment Type Appointme nt Facility Name Oct 14, 2023 09:30 AM AMBULATORY - PS[facility]IATRY [facility] [place] [facility] Oct 28, 2023 10:00 AM AMBULATORY - PS[facility] [place] [facility] Nov 11, 2023 11:00 AM AMBULATORY - [facility]IATRY [facility] [place] [facility] Nov 14, 2023 03:00 PM AMBULATORY [place] MEDICINE [facility] [facility] [place] [facility] Nov 17, 2023 08:00 AM AMBULATORY [place]ICINE [place] [facility] [place] [facility] Jan 06, 2024 10:00 AM AMBULATORY - MEDICINE [facility] Jan 10, 2024 11:15 AM AMBULATORY - NONE [facility] [place] [facility] Jan 10, 2024 11:30 AM AMBULATORY - NONE [facility] [place] [facility] Jan 13, 2024 10:00 AM AMBULATORY - PS[facility]CHIATRY [facility] [place] [facility] Jan 13, 2024 01:00 PM AMBULATORY - MEDICINE [place] [facility] [place] [facility] Feb 03, 2024 03:30 PM AMBULATORY - MEDICINE [facility] Feb 17, 2024 11:00 AM [facility] Mar 01, 2024 11:00 AM AMBULATORY - [place]ICINE [place] [facility] [place] [facility] Encounter Notes: All associated encounter notes This section contains the clinical notes associated to the Encounter. Date/Time Encounter Note(s) Provider Source Sep 09, 2023 09:32 AM PHARMACY MEDICATION MGT NOTE: LOCAL TITLE: CLINICAL PHARMACIST F/U NOTE STANDARD TITLE: PHARMACY MEDICATION MGT NOTE DATE OF NOTE: SEP 09, 2023@09:32 ENTRY DATE: SEP 09, 2023@09:32:33 AUTHOR: DIEUDONNE MEEHAN COSIGNER: URGENCY: STATUS: COMPLETED [facility] ([facility]VC) Standard Documentation VVC Clinician Resources Only: E911 (Emergency Call Relay Center): [phone] National Veterans Crisis Line - 988 then press #1. NEVALeandro Suicide Coordinator [phone], Ext. [phone]; Back-up Ext. [phone] [place] Police, Valente VILLARREAL [phone] Introduction: Visit is being conducted by [place] [facility]. identified with 2 identifiers: [X] Full Name [X] Date of [ ] VA ID Card Emergency Plan: [place] confirmed and/or provided the following information in case of emergency or technology failure. PATIENT PHONE - PHONE NUMBER [CELLULAR] - NONE FOUND Is patient phone number correct, if not, enter below: 's phone number: LUPILLO HONG [address], [place], [address] 's present location and address for appointment: at home 's emergency contact name and phone number: on file [place] reported that location is private and safe: Yes Informed Consent: informed of the risks and benefits of Telehealth video care. has the right to refuse video services. If refuses video visit, a gxxa-vi-[id number] visit will be scheduled. [place] verbalized consent for this video visit: Yes [...] 62yo BLACK OR MALE -=-=-=-=-=-=-=-=-=-=-=-=-=-=- =-=-=-=-=-==-=-=-=-=-=-=-=-=- =-=-=-=-=-=Subjective- [place] was last seen on [id number] with the following pharmacotherapeutic plan: [ ] No changes [ ] Discontinue: [X] Initiate: sertraline 25mg daily [ ] Change the following: Treating Dx(s): MDD INTERIM HISTORY pt reports to be doing okay. states things are status quo. reports that he has found himself to be slightly more social and a little bit more motivated since initiating sertraline. states I do feel like I have had more good days than bad ones. additionally, he is engaging in therapy services. notes that he continues to have financial stressors that affects him. notes that sleep continues to be poor. states on days I get good sleep, I feel more refreshed and focused. denies any side effects since starting sertraline. discussed titration today, as well as trialing low dose doxepin for sleep. medication education provided, to which pt provided verbal understanding and agreed to the plan. Mood: down Sleep: difficulty with sleep maintenance 2/2 to stress and bladder; ~2-4 awakenings per night, most of the time does not feel rested; avg 4hrs Apetite: okay [place] reports the following regarding medications: -N--Y- [X][ [...] [ ] Variable Sleep: [ ] Other: [ ] Normal [ ] Early awakening [ ] Sleep onset insomnia -N--Y- Orientation to: [X] Frequent disruption [ ][X] Person [ ][X] [...] ACTIVE DAILY NEEDED FOR RHEUMATOID ARTHRITIS 4) HYALURONATE NA (DUROLANE)20MG/ML SYR 3ML INJECT 60MG ACTIVE INTRA-ARTICULAR ONE TIME OSTEOARTHRITIS OF THE KNEE 5) HYDROCHLOROTHIAZIDE 25MG TAB TAKE ONE-HALF TABLET BY ACTIVE MOUTH ONCE DAILY 6) LORATADINE 10MG TAB TAKE ONE TABLET BY MOUTH ONCE ACTIVE DAILY FOR ALLERGY 7) SERTRALINE HCL 50MG TAB TAKE ONE-HALF TABLET BY MOUTH ACTIVE ONCE DAILY FOR MAJOR DEPRESSIVE DISORDER 8) SILDENAFIL CITRATE 100MG TAB TAKE ONE TABLET BY MOUTH ACTIVE DIRECTED TAKE 1 HOUR PRIOR TO SEXUAL ACTIVITY TRY ONE HALF PILL; IF ONE HALF DOES NOT WORK THEN MAY TAKE ONE WHOLE TABLET NEXT TIME; NEVER TAKE MORE THAN ONE TABLET AT ONE TIME Past psychiatric medications include the following: [X] Per CPRS: - sertraline (2023-current) [ ] Per Patient: Vitals: Ht: [...] following review of all active psychotropic and [employer] MANAGER-active agents is to ensure pharmacotherapy is evaluated for safety and efficacy as they relate to behaviorial and physiological changes and outcomes MDD - sertraline 25mg daily > tolerating; will titrate to effect * continues to have disturbances in sleep that is contributing to overall mood and motivation; will trial improving sleep quality w/ addition of ld doxepin PLAN 1. Pharmacotherapy [ ] No changes [ ] Discontinue: [X] Initiate: doxepin 3mg hs prn sleep [X] Change the following: increase sertraline to 50mg daily 2. Labs/tests: n/a 3. Consult(s) or Coordination of care: n/a 4. Other: medication organizer to be provided Education was provided to the regarding the [...] Other: RTC Interval: every 4-6weeks Next Apt: [id number] [place] was provided tag writer's contact information and instructed to contact tag writer as needed for any changes to scheduling or concerns otherwise. is aware of actions to take if they feel unsafe, including calling the 's Crisis Line (#132); calling 911; or going to the nearest urgent care or emergency room. The is also aware of how to contact the clinic should the require additional services prior to the next appointment. Time spent on chart review, session, and documentation: 30minutes /es/ Dieudonne Meehan PharmD Clinical Pharmacist Practitioner Signed: 09/09/2023 11:28 DIEUDONNE MEEHAN [facility]
--- OUTSIDE RECORDS SUMMARY | 2024-02-15 02:50 | XMS_ITS ---
Author Name [place] Address [address] [place] [address] Care Team Providers Care Brush Trimming Machine Setter Name Role Phone BOY DELONG Primary Care [...] RX PRESCRIPT ION HEALT H NEW [facility] [place] Mar 07, 2020 [facility] [id number] MARGARETH HONG RRYL PATIENT Selected Encounter This section includes the information on record at [place] for the Encounter. Date/Time Encounter Type Encounter Description Reason Pro vider Source Oct 24, 2023 01:28 PM Outpatient Encounter COMMUNITY CARE CONSULT IHE Encounter [...] AMBULATORY - PSYCHIATRY [facility] [place] [facility] Nov 11, 2023 11:00 AM AMBULATORY - PS[facility]CHIATRY [facility] [place] [facility] Nov 14, 2023 03:00 PM AMBULATORY - MEDICINE [facility] [place] [facility] Nov 17, 2023 08:00 AM AMBULATORY - MEDICINE [facility] [place] [facility] Jan 06, 2024 10:00 AM AMBULATORY - MEDICINE [facility] Jan 10, 2024 11:15 AM AMBULATORY - NONE [facility] [place] [facility] Jan 10, 2024 11:30 AM AMBULATORY - NONE [facility] [place] [facility] Jan 13, 2024 10:00 AM AMBULATORY - PS[facility]CHIATRY [facility] [place] [facility] Jan 13, 2024 01:00 PM AMBULATORY - MEDICINE [facility] [place] [facility] Feb 03, 2024 03:30 PM AMBULATORY - MEDICINE [facility] Feb 17, 2024 11:00 AM [facility] Mar 01, 2024 11:00 AM AMBULATORY - MEDICINE [facility] [place] [facility] Apr 06, 2024 10:00 AM AMBULATORY - PSYCHIATRY [facility] [place] [facility] Lab Results: +/- 30 days [...] Range Comment Nov 17, 2023 08:30 AM [facility] [place] [facility] CULTURE,BODY FLUID PANEL(C.D.H) Specimen Type: SYNOVIAL FLUID Comment: Refer to CPRS: [place] Imag. Display for Lab Results Ordering Provider: REESE MCFADDEN Report Released Date/Time: Nov 17, 2023 09:15 AM Reporting [facility] [address] [facility] [address] Performing Lab: [facility] [address] [facility] [address] GRAM STAIN(cdh) comment ANAEROBIC CULTURE(cdh) comment CULTURE,BODY FLUID(cdh) comment Nov 17, 2023 08:30 AM [facility] GLUCOSE, SYNOVIAL (q) Specimen Type: SYNOVIAL FLUID Comment: Synovial fluid glucose values are equivalent to plasma values if obtained from a fasting patient. The difference between the plasma glucose and synovial fluid glucose value should be <10 mg/dL. Test Performed by [facility], [facility], [address] [place] [address] Rajesh Doss M.D., Ph.D., Director of Laboratories , CLIA [id number] TEST PERFORMED AT: , Ordering Provider: REESE MCFADDEN Report Released Date/Time: Nov 17, 2023 09:15 AM Reporting Lab: [address] [address] Performing Lab: [facility] [address] [address] GLUCOSE, SYNOVIAL (q) 145 mg/dL Nov 17, 2023 08:30 AM [facility] SYNOVIAL FLUID CRYSTALS PANEL Specimen Type: SYNOVIAL FLUID No comment entered. Ordering Provider: REESE MCFADDEN Report Released Date/Time: Nov 17, 2023 09:24 AM Reporting Lab: [address] [address] Performing Lab: [facility] [address] [facility] [address] CRYSTALS,BF Positive Negative MSU CRYSTALS,BF Present Negative MSU CRYSTAL EXTRA,BF Present Negative MSU CRYSTAL INTRA,BF Present Negative Nov 17, 2023 08:30 AM [facility] CELL COUNT (SYNOVIAL FLUID) Specimen Type: SYNOVIAL FLUID Comment: *CRYSTALS Not Performed: Nov 17, 2023@09:25 by [id number] *TABLE OPERATOR Reason: see wrled 1544 for results Ordering Provider: REESE MCFADDEN Report Released Date/Time: Nov 17, 2023 09:15 AM Reporting Lab: [address] [address] Performing Lab[facility] [place] [facility] [address] [facility] [address] WBC 350 RBC <3000 COLOR Y VOLUME 2ml mL APPEARANCE C NUCLEATED CELL # comment 0-200 Encounter Notes: All associated encounter notes This section contains the clinical notes associated to the Encounter. Date/Time Encounter Note(s) Provider Source Oct 24, 2023 01:28 PM ADMINISTRATIVE NOTE: LOCAL TITLE: ADMINISTRATIVE NOTE STANDARD TITLE: ADMINISTRATIVE NOTE DATE OF NOTE: OCT 24, 2023@13:28 ENTRY DATE: OCT 24, 2023@13:28:34 AUTHOR: SONU ALTAMIRANO EXP COSIGNER: URGENCY: STATUS: COMPLETED [place] requesting a new CC Provider for CC-Bh Psychotherapy, please enter a new referral for the following CC Provider which agrees to suggested Provider. The [facility] Cherryjose alberto GastelumLeena [address] [place] [id number] Ind /ivone/ SONU ALTAMIRANO Signed: 10/24/2023 13:30 Receipt Acknowledged By: 10/24/2023 15:18 /ivone/ LJ ASHLEY PSYD Clinical Psychologist SONU ALTAMIRANO [facility]
--- OUTSIDE RECORDS SUMMARY | 2024-02-15 02:50 | XMS_ITS | Encounter Summary ---
Author Name [place] Address [address] [place] [address] Care Team Providers Care Logger All Round Name Role Phone BOY DELONG Primary Care [...] RX PRESCRIPT ION HEALT H NEW ENGL [facility] Mar 07, 2020 [facility] [id number] MARGARETH HONG RRYL PATIENT Selected Encounter This section includes the information on record at [place] for the Encounter. Date/Time Encounter Type Encounter Description Reason Pro vider Source Oct 14, 2023 01:32 PM Outpatient Encounter TELEPHONE TRIAGE IHE Encounter Template Text not used by [...] AMBULATORY - PS[facility]CHIATRY [facility] [place] [facility] Nov 11, 2023 11:00 AM AMBULATORY - PSYCHIATRY [facility] [place] [facility] Nov 14, 2023 03:00 PM AMBULATORY - MEDICINE [facility] [place] [facility] Nov 17, 2023 08:00 AM AMBULATORY - MEDICINE [facility] [place] [facility] Jan 06, 2024 10:00 AM AMBULATORY - MEDICINE [facility] Jan 10, 2024 11:15 AM AMBULATORY - NONE [facility] [place] [facility] Jan 10, 2024 11:30 AM AMBULATORY - NONE [facility] [place] [facility] Jan 13, 2024 10:00 AM AMBULATORY - PSYCHIATRY [facility] [place] [facility] Jan 13, 2024 01:00 PM AMBULATORY - MEDICINE [facility] [place] [facility] Feb 03, 2024 03:30 PM AMBULATORY - MEDICINE [facility] Feb 17, 2024 11:00 AM AMBULATORY - REHAB [facility] Mar 01, 2024 11:00 AM AMBULATORY - MEDICINE [facility] [place] [facility] Apr 06, 2024 10:00 AM AMBULATORY - PSYCHIATRY [facility] [place] [facility] Encounter Notes: All associated encounter notes This section contains the clinical notes associated to the Encounter. Date/Time Encounter Note(s) Provider Source Oct 14, 2023 01:32 PM RN PROGRESS NOTE: LOCAL TITLE: CCC: CLINICAL TRIAGE STANDARD TITLE: RN PROGRESS NOTE DATE OF NOTE: OCT 14, 2023@13:32:48 ENTRY DATE: OCT 14, 2023@13:32:48 AUTHOR: ARIEL CABRAL EXP COSIGNER: URGENCY: STATUS: COMPLETED Patient Demographics Patient Name: LUPILLO HONG Patient Primary Address: [address] [place] [address] Patient Primary Phone: [phone] Patient : 1960 Patient Age: 62 Current Location: home Call Back Number: verified Caller/Recipient Relation to Patient: Self Emergency Contact: KB GELY Triage Summary Conducted triage/discussed symptoms Pain Score: 2 Utilized the Triage Tool: Yes Chief Complaint: Knee Pain (one knee) System WHEN: Within 24 Hours Nurse's Recommendation / WHEN: Within 24 Hours System WHERE: Clinic Nurse's Recommendation / WHERE: Clinic/[facility] Patient Disposition Patient/Caregiver agrees to plan of care: Yes Patient WHERE: Urgent Care non-[facility] Patient WHEN: Within 24 hours Other - Patient When Disposition: was not sure he would go in to be seen Nursing Plan and Disposition Referred patient to higher level of care Instructed to go to Urgent Care (UC) Provided location of Urgent Care Center Advised of [place] UC Benefits Nurse Summary Nurse Summary: is calling to state that he twisted his left knee this week when he startled out of a sleep and fell off of his bed during the night. States his left knee is not red but is swollen and stiff with limited range of motion and pain level of 1-2. is limping when walking and has been taking Celebrex and Tylenol with some relief. Advised to be seen at the [facility] urgent care using the [place] Act: [facility] [address] [place] [address] Main number: [phone] Clinical Contact Center Codes Clinic/Location: V1 CWM PHONE BAUDILIO RN Decision Support System Output: Triage Complete Triage Date: 10/14/2023, 01:26 PM Triage Note: Decision Support Tool Used: TXCC Phone Triage 14 Oct 2023 17:24:[address] [facility] Demographics 63 y/o Male Results CC: Knee Pain (one knee) Software suggested: Within 24 Hours Software suggested follow-up location: Clinic, consider [facility] care Values and Measures Duration of CC: 3 Days Positive Responses HPI: knee swelling, with knee pain PMH: rheumatoid arthritis PSH: knee surgery, within past week VS: temperature not taken Negative Responses Denies: HPI: knee injury, within past 2 days Denies: HPI: knee pain, moderate to severe Denies: HPI: knee pain, severe Denies: HPI: knee pain, worsening Denies: HPI: leg swelling, localized below the painful knee Denies: HPI: lymph node pain, lymph node swelling, inguinal Denies: HPI: red streaks, from a spot on the knee Denies: HPI: skin erythema, knee Denies: HPI: skin lump, swollen, painful, over the knee Denies: HPI: skin swelling, knee, worsening Denies: HPI: skin tenderness, knee, worsening Denies: PMH: gout /es/ ARIEL M VISHaydee 1 BAUDILIO RN Signed: 10/14/2023 13:32 Receipt Acknowledged By: 10/14/2023 13:54 /es/ Imelda Lutz, HERMINIA Registered Nurse (RN) 10/14/2023 14:13 /es/ SUZETTE WOO LPN LICENSED PRACTICAL NURSE ARIEL CABRAL [facility]
--- OUTSIDE RECORDS SUMMARY | 2024-02-15 02:50 | XMS_ITS ---
Author Name [facility] [place] [place] Organization [place] Address [address] [place] [address] Care Team Providers Care Business Performance Specialist Name Role Phone BOY DELONG Primary Care [...] RX PRESCRIPT ION HEALT H NEW ENGL [facility] Mar 07, [address] [facility] [id number] MARGARETH HONG RRYL PATIENT Selected Encounter This section includes the information on record at [place] for the Encounter. Date/Time Encounter Type Encounter Description Reason Pro vider Source Oct 21, 2023 04:04 PM Outpatient Encounter [facility] IHE Encounter Template Text not used [...] AMBULATORY - [facility]IATRY [facility] [place] [facility] Nov 11, 2023 11:00 AM AMBULATORY - PS[facility]IATRY [facility] [place] [facility] Nov 14, 2023 03:00 PM AMBULATORY - MEDICINE [facility] [place] [facility] Nov 17, 2023 08:00 AM AMBULATORY - MEDICINE [facility] [place] [facility] Jan 06, 2024 10:00 AM AMBULATORY - MEDICINE [facility] Jan 10, 2024 11:15 AM AMBULATORY - NONE [facility] [place] [facility] Jan 10, 2024 11:30 AM AMBULATORY - NONE [facility] [place] [facility] Jan 13, 2024 10:00 AM AMBULATORY - PSYCHIATRY [facility] [place] [facility] Jan 13, 2024 01:00 PM AMBULATORY - MEDICINE [facility] [place] [facility] Feb 03, 2024 03:30 PM AMBULATORY - MEDICINE [facility] Feb 17, 2024 11:00 AM [facility] Mar 01, 2024 11:00 AM AMBULATORY - MEDICINE [facility] [place] [facility] Apr 06, 2024 10:00 AM AMBULATORY - PSYCHIATRY [facility] [place] [facility] Lab Results: +/- 30 days of the encounter This section includes the Chemistry and Hematology Lab Results on record with [place] for the patient. Radiology Reports and Pathology Reports are provided separately, in subsequent sections. Lab Results This section contains the Chemistry/Hematology Results that were resulted 30 days before or 30 daysafter the date of the Encounter. Date/Time Source Result Type Result - Unit Interpretation Reference Range Comment Nov 17, 2023 08:30 AM [facility] [place] [facility] CULTURE,BODY FLUID PANEL(C.D.H) Specimen Type: SYNOVIAL FLUID Comment: Refer to CPRS: [place] Imag. Display for Lab Results Ordering Provider: REESE MCFADDEN Report Released Date/Time: Nov 17, 2023 09:15 AM Reporting Lab: [facility] [place] [facility] [address] [facility] [address] Performing Lab: [facility] [address] [facility] [address] GRAM STAIN(cdh) comment ANAEROBIC CULTURE(cdh) comment CULTURE,BODY FLUID(cdh) comment Nov 17, 2023 08:30 AM [facility] GLUCOSE, SYNOVIAL (q) Specimen Type: SYNOVIAL FLUID Comment: Synovial fluid glucose values are equivalent to plasma values if obtained from a fasting patient. The difference between the plasma glucose and synovial fluid glucose value should be <10 mg/dL. Test Performed by [facility], [employer] [facility], [address] [place] [address] Rajesh Doss M.D., Ph.D., Director of Laboratories , CLIA [id number] TEST PERFORMED AT: , Ordering Provider: REESE MCFADDEN Report Released Date/Time: Nov 17, 2023 09:15 AM Reporting Lab: [address] [address] Performing Lab: [facility] [address] [address] GLUCOSE, SYNOVIAL (q) 145 mg/dL Nov 17, 2023 08:30 AM [facility] SYNOVIAL FLUID CRYSTALS PANEL Specimen Type: SYNOVIAL FLUID No comment entered. Ordering Provider: REESE MCFADDEN Report Released Date/Time: Nov 17, 2023 09:24 AM Reporting Lab: [address] [address] Performing Lab: [facility] [address] [facility] [address] CRYSTALS,BF Positive Negative MSU CRYSTALS,BF Present Negative MSU CRYSTAL EXTRA,BF Present Negative MSU CRYSTAL INTRA,BF Present Negative Nov 17, 2023 08:30 AM [facility] CELL COUNT (SYNOVIAL FLUID) Specimen Type: SYNOVIAL FLUID Comment: *CRYSTALS Not Performed: Nov 17, 2023@09:25 by [id number] *PRODUCTION PLANNER Reason: see wrled 0832 for results Ordering Provider: REESE MCFADDEN Report Released Date/Time: Nov 17, 2023 09:15 AM Reporting Lab: [facility] [address] Performing Lab: [facility] [address] [facility] [address] WBC 350 RBC <3000 COLOR Y VOLUME 2ml mL APPEARANCE C NUCLEATED CELL # comment 0-200 Encounter Notes: All associated encounter notes This section contains the clinical notes associated to the Encounter. Date/Time Encounter Note(s) Provider Source Oct 21, 2023 04:04 PM ADMINISTRATIVE NOT E: LOCAL TITLE: ADMINISTRATIVE NOTE STANDARD TITLE: ADMINISTRATIVE NOTE DATE OF NOTE: OCT 21, 2023@16:04 ENTRY DATE: OCT 21, 2023@16:04:30 AUTHOR: AMADA JOSUE COSIGNER: URGENCY: STATUS: COMPLETED ADMINISTRATIVE NOTE Has ADDENDA [place] is inquiring whether it would be quicker to be seen by a psychotherapist in the [facility] or at the [facility]...Currently, there is only a Community Care consult (dated July 22, 2023), but prefers the soonest available apppointment whether it be in the [facility] or in [place]. can be reached at [phone]...Pizza Delivery Driver also sent a teams message to the [facility] and [place] Consult coordinators to advise as well. /barbara JOSUE ADVANCED STAFF PHYSICIAN Signed: 10/21/2023 16:13 Receipt Acknowledged By: 10/24/2023 07:23 /ivone/ NELLI NGUYEN Advanced Radiator Repairer 10/24/2023 08:54 /es/ TIMMY DONAHUE C[facility] IN THE COMM[facility] RELATIONS 10/24/2023 08:07 /es/ LJ ASHLEY PSYD Clinical Psychologist 10/24/2023 ADDENDUM STATUS: COMPLETED Patient has a community care consult in place. MSA placed comment on consult to call with status of new community care provider. /ivone/ NELLI NGUYEN Advanced Radiator Repairer Signed: 10/24/2023 07:25 AMADA JOSUE
--- OUTSIDE RECORDS SUMMARY | 2024-02-15 02:50 | XMS_ITS | Encounter Summary ---
Author Name [facility] [place] Organization [place] Address [address] [place] [address] Care Team Providers Care Cannon Pinion Adjuster Name Role Phone BOY DELONG Primary Care [...] RX PRESCRIPT ION HEALT H NEW ENGL [facility] Mar 07, 2020 [facility] [id number] MARGARETH HONG RRYL PATIENT Selected Encounter This section includes the information on record at [place] for the Encounter. Date/Time Encounter Type Encounter Description Reason Pro vider Source Aug 11, 2023 12:00 AM Outpatient Encounter COMMUNITY [...] 20 appointments. The data comes from all [place] treatment facilities. Appointment Date/Time Appointment Type Appointme nt Facility Name Aug 19, 2023 10:00 AM AM[facility]ULATORY - [facility] Sep 09, 2023 09:30 AM AMBULATORY - PS[facility]CHIATRY [facility] [place] [facility] Oct 14, 2023 09:30 AM AMBULATORY - PS[facility]CHIATRY [facility] [place] [facility] Oct 28, 2023 10:00 AM AMBULATORY - PS[facility]CHIATRY [facility] [place] [facility] Nov 11, 2023 11:00 AM AMBULATORY - PS[facility]CHIATRY [facility] [place] [facility] Nov 14, 2023 03:00 PM AMBULATORY - MEDICINE [facility] [place] [facility] Nov 17, 2023 08:00 AM AMBULATORY - MEDICINE [facility] [place] [facility] Jan 06, 2024 10:00 AM AMBULATORY - MEDICINE [place] [place] Jan 10, 2024 11:15 AM AMBULATORY - NONE [facility] [place] [facility] Jan 10, 2024 11:30 AM AMBULATORY - NONE [facility] [place] [facility] Jan 13, 2024 10:00 AM AMBULATORY - PS[facility]CHIATRY [facility] [place] [facility] Jan 13, 2024 01:00 PM AMBULATORY - MEDICINE [facility] [place] [facility] Feb 03, 2024 03:30 PM AMBULATORY - MEDICINE [place] [place] Encounter Notes: All associated encounter notes This section contains the clinical notes associated to the Encounter. Date/Time Encounter Note(s) Provider Source Aug 11, 2023 12:00 AM NONVA CONSULT: LOCAL TITLE: COMMUNITY CARE-CONSULT RESULT NOTE STANDARD TITLE: NONVA CONSULT DATE OF NOTE: AUG 11, 2023 ENTRY DATE: OCT 15, 2023@08:44:14 AUTHOR: CHIOMA ALMANZAR EXP COSIGNER: URGENCY: STATUS: COMPLETED VistA Imaging - Scanned Document SCANNED DOCUMENT SIGNATURE NOT REQUIRED Electronically Filed: 10/15/2023 by: CHIOMA LOWERY [facility] [place] [facility]
--- OUTSIDE RECORDS SUMMARY | 2024-02-15 02:50 | XMS_ITS | Encounter Summary ---
Author Name [facility] [place] Organization [place] Address [address] [place] [address] Care Team Providers Care Cpc Coder Name Role Phone BOY DELONG Primary Care [...] RX PRESCRIPT ION HEALT H NEW ENGL [facility] Mar 07, 2020 [facility] [id number] MARGARETH HONG RRYL PATIENT Selected Encounter This section includes the information on record at [place] for the Encounter. Date/Time Encounter Type Encounter Description Reason Pro vider Source Oct 19, 2023 09:08 AM Outpatient Encounter TELEPHONE/REHAB AND SUPPORT IHE Encounter Template Text not used by [place] Plan of Treatment: Future Appointments (+ 6 months) and Future Tests (+/- 45 days) The Plan of Treatment section includes future care activities for the patient from all [place] treatmentfacilities. This section includes future appointments and future orders which are active, pending or scheduled. Future Appointments This section includes appointments that were scheduled to occur 6 months from the date of the Encounter, up to a maximum of 20 appointments. The data comes from all [place] treatment facilities. Appointment Date/Time Appointment Type Appointme nt Facility Name Oct 28, 2023 10:00 AM AMBULATORY - PS[facility]CHIATRY [facility] [place] [facility] Nov 11, 2023 11:00 AM AMBULATORY - PSYCHIATRY [facility] [place] [facility] Nov 14, 2023 03:00 PM AMBULATORY - MEDICINE [facility] [place] [facility] Nov 17, 2023 08:00 AM AMBULATORY - MEDICINE [facility] [place] [facility] Jan 06, 2024 10:00 AM AMBULATORY - MEDICINE [facility] Jan 10, 2024 11:15 AM AMBULATORY - NONE [facility] [place] [facility] Jan 10, 2024 11:30 AM AMBULATORY - NONE [facility] [place] [facility] Jan 13, 2024 10:00 AM AMBULATORY - PSYCHIATRY [facility] [place] [facility] Jan 13, 2024 01:00 PM AMBULATORY - MEDICINE [facility] [place] [facility] Feb 03, 2024 03:30 PM AMBULATORY - MEDICINE [facility] Feb 17, 2024 11:00 AM AMBULATORY - [facility] Mar 01, 2024 11:00 AM AMBULATORY - MEDICINE [facility] [place] [facility] Apr 06, 2024 10:00 AM AMBULATORY - PSYCHIATRY [facility] [place] [facility] Lab Results: +/- 30 days of the encounter This section includes the Chemistry and Hematology Lab Results on record with [place] for the patient. Radiology Reports and Pathology Reports are provided separately, in subsequent sections. Lab Results This section contains the Chemistry/Hematology Results that were resulted 30 days before or 30 daysafter the date of the Encounter. Date/Time Source Result Type Result - Unit Interpretation Reference Range Comment Nov 17, 2023 08:30 AM [place] [facility] [place] [facility] CULTURE,BODY FLUID PANEL(C.D.H) Specimen Type: SYNOVIAL FLUID Comment: Refer to CPRS: [place] Imag. Display for Lab Results Ordering Provider: REESE MCFADDEN Report Released Date/Time: Nov 17, 2023 09:15 AM Reporting Lab: [facility] [address] [facility] [address] Performing Lab: [facility] [address] [facility] [address] GRAM STAIN(cdh) comment ANAEROBIC CULTURE(cdh) comment CULTURE,BODY FLUID(cdh) comment Nov 17, 2023 08:30 AM [facility] GLUCOSE, SYNOVIAL (q) Specimen Type: SYNOVIAL FLUID Comment: Synovial fluid glucose values are equivalent to plasma values if obtained from a fasting patient. The difference between the plasma glucose and synovial fluid glucose value should be <10 mg/dL. Test Performed by [facility], [employer] [facility], [address] [place] [address] Rajesh Doss M.D., Ph.D., Director of Laboratories , CLIA [id number] TEST PERFORMED AT: , Ordering Provider: REESE MCFADDEN Report Released Date/Time: Nov 17, 2023 09:15 AM Reporting Lab: [address] [address] Performing Lab: [facility] [address] [address] GLUCOSE, SYNOVIAL (q) 145 mg/dL Nov 17, 2023 08:30 AM [facility] SYNOVIAL FLUID CRYSTALS PANEL Specimen Type: SYNOVIAL FLUID No comment entered. Ordering Provider: REESE MCFADDEN Report Released Date/Time: Nov 17, 2023 09:24 AM Reporting Lab: [facility] [address] [facility] [address] Performing Lab: [facility] [address] [facility] [address] CRYSTALS,BF Positive Negative MSU CRYSTALS,BF Present Negative MSU CRYSTAL EXTRA,BF Present Negative MSU CRYSTAL INTRA,BF Present Negative Nov 17, 2023 08:30 AM [facility] CELL COUNT (SYNOVIAL FLUID) Specimen Type: SYNOVIAL FLUID Comment: *CRYSTALS Not Performed: Nov 17, 2023@09:25 by [id number] *CLINICAL RESEARCH ANALYST Reason: see wrled 8621 for results Ordering Provider: REESE MCFADDEN Report Released Date/Time: Nov 17, 2023 09:15 AM Reporting Lab: [facility] [address] Performing Lab: [facility] [address] [facility] [address] WBC 350 RBC <3000 COLOR Y VOLUME 2ml mL APPEARANCE C NUCLEATED CELL # comment 0-200 Encounter Notes: All associated encounter notes This section contains the clinical notes associated to the Encounter. Date/Time Encounter Note(s) Provider Source Oct 19, 2023 09:08 AM TELEPHONE ENCOUNTER NOTE: LOCAL TITLE: TELEPHONE NOTE/PM&R STANDARD TITLE: TELEPHONE ENCOUNTER NOTE DATE OF NOTE: OCT 19, 2023@09:08 ENTRY DATE: OCT 19, 2023@09:08:10 AUTHOR: JAM MCFADDEN EXP COSIGNER: URGENCY: STATUS: COMPLETED Spoek to . He had a twist and fall over the weekend. Injured {left?} knee and it is feeling better. Using brace. Had bilateral JASSO injections May 28. If pain does not subside sufficiently, corticosteroid injection may be scheduled. /ivone/ JAM MCFADDEN [facility] Signed: 10/19/2023 09:11 JAM MCFADDEN [facility]
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
--- OUTSIDE RECORDS SUMMARY | 2024-02-15 02:51 | XMS_ITS | Encounter Summary ---
Author Name [place] Address [address] [place] [address] Care Team Providers Care Financial Dealers Name Role Phone BOY DELONG Primary Care [...] RX PRESCRIPT ION HEALT H [place] [facility] Mar 07, 2020 [facility] [id number] MARGARETH HONG RRYL PATIENT Selected Encounter This section includes the information on record at [place] for the Encounter. Date/Time Encounter Type Encounter Description Reason Pro vider Source Nov 11, 2023 02:06 PM Outpatient Encounter HCHV/HCMI INDIV IHE Encounter Template Text not used by [place] Plan of Treatment: Future Appointments (+ 6 months) and Future Tests (+/- 45 days) The Plan of Treatment section includes future care activities for the patient from all [place] treatmentfacilities. This section includes future appointments and future orders which are active, pending or scheduled. Future Appointments This section includes appointments that were scheduled to occur 6 months from the date of the Encounter, up to a maximum of 20 appointments. The data comes from all [place] treatment facilities. Appointment Date/Time Appointment Type Appointme nt Facility Name Nov 14, 2023 03:00 PM AMBULATORY - MEDICINE [place] [facility] [place] [facility] Nov 17, 2023 08:00 AM AMBULATORY - MEDICINE [place] [facility] [facility] Jan 06, 2024 10:00 AM AMBULATORY - MEDICINE [facility] Jan 10, 2024 11:15 AM AMBULATORY - NONE [place] [facility] [place] [facility] Jan 10, 2024 11:30 AM AMBULATORY - NONE [place] [facility] [place] [facility] Jan 13, 2024 10:00 AM AMBULATORY - PSYCHIATRY [place] [facility] [place] [facility] Jan 13, 2024 01:00 PM AMBULATORY - MEDICINE [place] C [facility] [facility] Feb 03, 2024 03:30 PM AMBULATORY - MEDICINE [facility] Feb 17, 2024 11:00 AM [facility] Mar 01, 2024 11:00 AM AMBULATORY - MEDICINE [place] [facility] [facility] Apr 06, 2024 10:00 AM AMBULATORY - PSYCHIATRY [place] [facility] [place] [facility] Lab Results: +/- 30 days of the encounter This section includes the Chemistry and Hematology Lab Results on record with [place] for the patient. Radiology Reports and Pathology Reports are provided separately, in subsequent sections. Lab Results This section contains the Chemistry/Hematology Results that were resulted 30 days before or 30 daysafter the date of the Encounter. Date/Time Source Result Type Result - Unit Interpretation Reference Range Comment Nov 17, 2023 08:30 AM [facility] CULTURE,BODY FLUID PANEL(C.D.H) Specimen Type: SYNOVIAL FLUID Comment: Refer to CPRS: [place] Imag. Display for Lab Results Ordering Provider: REESE MCFADDEN Report Released Date/Time: Nov 17, 2023 09:15 AM Reporting Lab[facility] [place] [facility] [address] [facility] [address] Performing Lab: [place] [facility] [place] [facility] [address] [facility] [address] GRAM STAIN(cdh) comment ANAEROBIC CULTURE(cdh) comment CULTURE,BODY FLUID(cdh) comment Nov 17, 2023 08:30 AM [facility] [place] [facility] GLUCOSE, SYNOVIAL (q) Specimen Type: SYNOVIAL FLUID Comment: Synovial fluid glucose values are equivalent to plasma values if obtained from a fasting patient. The difference between the plasma glucose and synovial fluid glucose value should be <10 mg/dL. Test Performed by [employer], [employer] [facility], [address] [place] [address] Rajesh Doss M.D., Ph.D., Director of Laboratories , [facility] [id number] TEST PERFORMED AT: , Ordering Provider: REESE MCFADDEN Report Released Date/Time: Nov 17, 2023 09:15 AM Reporting Lab: [facility] [address] [facility] [address] Performing Lab: [facility] [address] [address] GLUCOSE, SYNOVIAL (q) 145 mg/dL Nov 17, 2023 08:30 AM [facility] SYNOVIAL FLUID CRYSTALS PANEL Specimen Type: SYNOVIAL FLUID No comment entered. Ordering Provider: REESE MCFADDEN Report Released Date/Time: Nov 17, 2023 09:24 AM Reporting Lab: [facility] [address] [facility] [address] Performing Lab: [facility] [address] [facility] [address] CRYSTALS,BF Positive Negative MSU CRYSTALS,BF Present Negative MSU CRYSTAL EXTRA,BF Present Negative MSU CRYSTAL INTRA,BF Present Negative Nov 17, 2023 08:30 AM [facility] CELL COUNT (SYNOVIAL FLUID) Specimen Type: SYNOVIAL FLUID Comment: *CRYSTALS Not Performed: Nov 17, 2023@09:25 by [id number] *SENIOR LOAN OFFICER Reason: see wrled 8464 for results Ordering Provider: REESE MCFADDEN Report Released Date/Time: Nov 17, 2023 09:15 AM Reporting Lab: [facility] [address] [facility] [address] Performing Lab: [facility] [address] [facility] [address] WBC 350 RBC <3000 COLOR Y VOLUME 2ml mL APPEARANCE C NUCLEATED CELL # comment 0-200 Encounter Notes: All associated encounter notes This section contains the clinical notes associated to the Encounter. Date/Time Encounter Note(s) Provider Source Nov 11, 2023 02:06 PM CLERICAL NOTE: LOCAL TITLE: APPOINTMENT NO SHOW STANDARD TITLE: CLERICAL NOTE DATE OF NOTE: NOV 11, 2023@14:06 ENTRY DATE: NOV 11, 2023@14:06:52 AUTHOR: AME HESS EXP COSIGNER: URGENCY: STATUS: COMPLETED APPOINTMENT NO SHOW Has ADDENDA Patient Name: LUPILLO HONG Patient SSN: [id number] Date and time of Appointment No show : 11/11/23 14:06 PATIENT PHONE - PHONE NUMBER [CELLULAR] - NONE FOUND Patient's medical record was reviewed. Follow-up actions were determined and initiated: Please check/complete as applies: [ ]Telephoned Directly [ ]Re-scheduled for next available appt [X]Sent a N0-show letter ( must call for appointment) [ ]Other (Emergent/Overbook, etc.): Additional Comments: Vet did not show for appointment today at 1400 in [facility]. This appeals writer had left a message for Roderick Hernandez of [facility] concerning [place] and will only hear back post-11/19. Will offer to meet [place] Dec 01 at 1400 in [facility]. Future Clinic Visits 11/14/2023 15:00 CWM/NO/MED REHAB 1 PA 01/06/2024 10:00 CWM/SO/PACT 3 WH 01/13/2024 10:00 CWM/NO/VVC/MHC/CLP2 /ivone/ Ame Hess [facility], S Signed: 11/11/2023 14:36 11/14/2023 ADDENDUM STATUS: COMPLETED this appeals writer had overbooked for 1400 at [facility] on 12/01 so this appeals writer wrote Vet another letter re: coming in to clinic at 1300 instead. /ivone/ Ame Hess [facility], [place] Signed: 11/14/2023 11:22 AME HESS [place] [facility]
--- OUTSIDE RECORDS SUMMARY | 2024-02-15 02:51 | XMS_ITS | Encounter Summary ---
Author Name Department of [place] Organization [place] Address [address] [place] [address] Care Team Providers Care Coating And Baking Operator Name Role Phone BOY DELONG Primary [...] RX PRESCRIPT ION HEALT H [place] [facility] Mar 07, 2020 [facility] [id number] MARGARETH HONG RRYL PATIENT Selected Encounter This section includes the information on record at [place] for the Encounter. Date/Time Encounter Type Encounter Description Reason Pro vider Source Oct 27, 2023 11:41 AM Outpatient Encounter HCHV/HCMI INDIV IHE Encounter Template [...] AMBULATORY - PSYCHIATRY [place] [facility] [place] [facility] Nov 11, 2023 11:00 AM AMBULATORY - PSYCHIATRY [place] [facility] [place] [facility] Nov 14, 2023 03:00 PM AMBULATORY - MEDICINE [place] C [facility] [place] [facility] Nov 17, 2023 08:00 AM AMBULATORY - MEDICINE [place] C [facility] [place] [facility] Jan 06, 2024 10:00 AM AMBULATORY - MEDICINE [facility] Jan 10, 2024 11:15 AM AMBULATORY - NONE [place] [facility] [place] [facility] Jan 10, 2024 11:30 AM AMBULATORY - NONE [place] [facility] [place] [facility] Jan 13, 2024 10:00 AM AMBULATORY - PSYCHIATRY [facility] [place] [facility] Jan 13, 2024 01:00 PM AMBULATORY - MEDICINE [place] C [facility] [place] [facility] Feb 03, 2024 03:30 PM AMBULATORY - MEDICINE [facility] Feb 17, 2024 11:00 AM [facility] Mar 01, 2024 11:00 AM AMBULATORY - MEDICINE [place] C [facility] [place] [facility] Apr 06, 2024 10:00 AM AMBULATORY - PSYCHIATRY [place] [facility] [place] [facility] Lab Results: +/- 30 days [...] Range Comment Nov 17, 2023 08:30 AM [place] [facility] [place] [facility] CULTURE,BODY FLUID PANEL(C.D.H) Specimen Type: SYNOVIAL FLUID Comment: Refer to CPRS: [place] Imag. Display for Lab Results Ordering Provider: REESE MCFADDEN Report Released Date/Time: Nov 17, 2023 09:15 AM Reporting Lab: [facility] WSN [facility] [address] [facility] [address] Performing Lab: [facility] [address] [facility] [address] GRAM STAIN([facility]) comment ANAEROBIC CULTURE(cdh) comment CULTURE,BODY FLUID(cdh) comment Nov 17, 2023 08:30 AM [facility] GLUCOSE, SYNOVIAL (q) Specimen Type: SYNOVIAL FLUID Comment: Synovial fluid glucose values are equivalent to plasma values if obtained from a fasting patient. The difference between the plasma glucose and synovial fluid glucose value should be <10 mg/dL. Test Performed by [facility], Location Labs [facility], [address] [place] [address] Rajesh Doss M.D., Ph.D., Director of Laboratories , CLIA [id number] TEST PERFORMED AT: , Ordering Provider: REESE MCFADDEN Report Released Date/Time: Nov 17, 2023 09:15 AM Reporting Lab: [facility] [address] [facility] [address] Performing Lab: [facility] [address] [address] GLUCOSE, SYNOVIAL (q) 145 mg/dL Nov 17, 2023 08:30 AM [facility] SYNOVIAL FLUID CRYSTALS PANEL Specimen Type: SYNOVIAL FLUID No comment entered. Ordering Provider: REESE MCFADEDN Report Released Date/Time: Nov 17, 2023 09:24 AM Reporting Lab: [facility] [address] [facility] [address] Performing Lab: [facility] [address] [facility] [address] CRYSTALS,BF Positive Negative MSU CRYSTALS,BF Present Negative MSU CRYSTAL EXTRA,BF Present Negative MSU CRYSTAL INTRA,BF Present Negative Nov 17, 2023 08:30 AM [facility] CELL COUNT (SYNOVIAL FLUID) Specimen Type: SYNOVIAL FLUID Comment: *CRYSTALS Not Performed: Nov 17, 2023@09:25 by [id number] *CASTINGS DRAFTER Reason: see wrled 8675 for results Ordering Provider: REESE MCFADDEN Report Released Date/Time: Nov 17, 2023 09:15 AM Reporting Lab: [facility] [address] [facility] [address] Performing Lab: [place] [facility] [place] [facility] [address] [facility] [address] WBC 350 RBC <3000 COLOR Y VOLUME 2ml mL APPEARANCE C NUCLEATED CELL # comment 0-200 Encounter Notes: All associated encounter notes This section contains the clinical notes associated to the Encounter. Date/Time Encounter Note(s) Provider Source Oct 27, 2023 11:41 AM ADMINISTRATIVE NOTE: LOCAL TITLE: ADMINISTRATIVE NOTE STANDARD TITLE: ADMINISTRATIVE NOTE DATE OF NOTE: OCT 27, 2023@11:41 ENTRY DATE: OCT 27, 2023@11:41:14 AUTHOR: TONY BORJA EXP COSIGNER: URGENCY: STATUS: COMPLETED called regarding arrears in rent for approximately 3 months. He stated he went to housing court and was put on a payment plan. he stated he is unable to maintain payment plan of $5000 rental arrears and is looking for assistance. He would like to apply for 117go but was told that would not cover past expenses. He will stop by [facility] for application /es/ TONY BORJA ADVANCED WATCH DIAL STONER Signed: 10/27/2023 11:42 TONY BORJA [facility]
--- OUTSIDE RECORDS SUMMARY | 2024-02-15 02:51 | XMS_ITS | Encounter Summary ---
Author Name Department [place] Organization [place] Address [address] [place] [address] Care Team Providers Care Tax Services Intern Name Role Phone BOY DELONG Primary Care [...] PRESCRIPT ION [facility]ALT [facility] Mar 07, 2020 [facility] [id number] MARGARETH HONG RRYL PATIENT Selected Encounter This section includes the information on record at [place] for the Encounter. Date/Time Encounter Type Encounter Description Reason Provider Source Oct 26, 2023 11:00 AM HC PRO PHONE CALL 5-10 MIN TELEPHONE HCMI ICD-10-CM Z59.811 Housing instability, housed, with risk of homelessness Himanshu CHAO Encounter Template Text not used by [place] Assessments - Encounter Diagnoses This section includes the primary and secondary diagnoses documented for the Encounter. Date/Time Primary/Secondary Diagnosis Diagnosis Name Provider Source Oct 26, 2023 11:00 AM PRIMARY Housing instability, housed, with risk of homelessness ROGER CHAO [facility] ([id number]) Plan of Treatment: Future Appointments (+ 6 months) and Future Tests (+/- 45 days) The Plan of Treatment section includes future care activities for the patient from all [place] treatment[place] [facility] hospital[facility]. This section includes future appointments and future orders which are active, pending or scheduled. Future Appointments This section includes appointments that were scheduled to occur 6 months from the date of the Encounter, up to a maximum of 20 appointments. The data comes from all [place] treatment facilities. Appointment Date/Time Appointment Type Appointme nt Facility Name Oct 28, 2023 10:00 AM AMBULATORY - [facility]ATRY [facility] [place] [facility] Nov 11, 2023 11:00 AM AMBULATORY - PS[place]IATRY [place] [facility] [place] [facility] Nov 14, 2023 03:00 PM AMBULATORY - MEDICINE [place] [facility] [place] [facility] Nov 17, 2023 08:00 AM AMBULATORY - MEDICINE [place] [facility] [place] [facility] Jan 06, 2024 10:00 AM AMBULATORY - MEDICINE [facility] Jan 10, 2024 11:15 AM AMBULATORY - NONE [place] [facility] [place] [facility] Jan 10, 2024 11:30 AM AMBULATORY - NONE [place] [facility] [place] [facility] Jan 13, 2024 10:00 AM AMBULATORY - PS[place]CHIATRY [place] [facility] [place] [facility] Jan 13, 2024 01:00 PM AMBULATORY - MEDICINE [place] [facility] [place] [facility] Feb 03, 2024 03:30 PM AMBULATORY - MEDICINE [facility] Feb 17, 2024 11:00 AM AMBULATORY - REHAB [facility] Mar 01, 2024 11:00 AM AMBULATORY - MEDICINE [place] [facility] [place] [facility] Apr 06, 2024 10:00 AM AMBULATORY - PS[place]CHIATRY [place] [facility] [place] [facility] Lab Results: +/- 30 days of the encounter This section includes the Chemistry and Hematology Lab Results on record with [place] for the patient. Radiology Reports and Pathology Reports are provided separately, in subsequent sections. Lab Results This section contains the Chemistry/Hematology Results that were resulted 30 days before or 30 daysafter the date of the Encounter. Date/Time Source Result Type Result - Unit Interpretation Reference Range Comment Nov 17, 2023 08:30 AM [place] [facility] [place] [facility] CULTURE,BODY FLUID PANEL(C.D.H) Specimen Type: SYNOVIAL FLUID Comment: Refer to CPRS: [place] Imag. Display for Lab Results Ordering Provider: REESE MCFADDEN Report Released Date/Time: Nov 17, 2023 09:15 AM Reporting Lab: [facility] [address] [facility] [address] Performing Lab: [facility] [address] [facility] [address] GRAM STAIN(cdh) comment ANAEROBIC CULTURE(cdh) comment CULTURE,BODY FLUID(cdh) comment Nov 17, 2023 08:30 AM [facility] GLUCOSE, SYNOVIAL (q) Specimen Type: SYNOVIAL FLUID Comment: Synovial fluid glucose values are equivalent to plasma values if obtained from a fasting patient. The difference between the plasma glucose and synovial fluid glucose value should be <10 mg/dL. Test Performed by [facility], [facility], [address] [place] [address] Rajesh Doss M.D., Ph.D., Director of Laboratories , [place] [id number] TEST PERFORMED AT: , Ordering Provider: REESE MCFADDEN Report Released Date/Time: Nov 17, 2023 09:15 AM Reporting Lab: [address] [address] Performing Lab: [facility] [address] [address] GLUCOSE, SYNOVIAL (q) 145 mg/dL Nov 17, 2023 08:30 AM [facility] SYNOVIAL FLUID CRYSTALS PANEL Specimen Type: SYNOVIAL FLUID No comment entered. Ordering Provider: REESE MCFADDEN Report Released Date/Time: Nov 17, 2023 09:24 AM Reporting Lab: [facility] [address] [facility] [address] Performing Lab: [facility] [address] [facility] [address] CRYSTALS,BF Positive Negative MSU CRYSTALS,BF Present Negative MSU CRYSTAL EXTRA,BF Present Negative MSU CRYSTAL INTRA,BF Present Negative Nov 17, 2023 08:30 AM [facility] CELL COUNT (SYNOVIAL FLUID) Specimen Type: SYNOVIAL FLUID Comment: *CRYSTALS Not Performed: Nov 17, 2023@09:25 by [id number] *DRAPERY OPERATOR Reason: see wrled [id number] for results Ordering Provider: REESE MCFADDEN Report Released Date/Time: Nov 17, 2023 09:15 AM Reporting Lab: [facility] [address] [facility] [address] Performing Lab: [facility] [address] [facility] [address] WBC 350 RBC <3000 COLOR Y VOLUME 2ml mL APPEARANCE C NUCLEATED CELL # comment 0-200 Encounter Notes: All associated encounter notes This section contains the clinical notes associated to the Encounter. Date/Time Encounter Note(s) Provider Source Oct 26, 2023 11:18 AM TELEPHONE ENCOUNTE R NOTE: LOCAL TITLE: HOMELESS TELEPHONE CONTACT STANDARD TITLE: TELEPHONE ENCOUNTER NOTE DATE OF NOTE: OCT 26, 2023@11:18 ENTRY DATE: OCT 26, 2023@11:19:05 AUTHOR: SHRUTHI CHAO EXP COSIGNER: URGENCY: STATUS: COMPLETED Printed Circuit Boards Solder Leveler notified contacted local homeless veterans hotline. Printed Circuit Boards Solder Leveler called at number provided. reported he was 3 months behind rent (approx 5k), over income for RAFT due to 50K income for this year, his income has dropped significantly. went to satellite office and assisted with VAS application. [place] informed of [employer] [employer] as well. provided with local [facility] after his visit with O [place] denied other issues to be addressed in the call encouraged to contact va provider if further assistance needed call time 5 minutes /ivone/ JOSIAS HONEYCUTT Manager Technical Support [employer]PD Program Signed: 10/26/2023 11:22 DIAMOND CHAO [facility] ([id number])
--- OUTSIDE RECORDS SUMMARY | 2024-02-15 02:51 | XMS_ITS | Encounter Summary ---
Author Name Department of [place]a [place] Organization [place] Address [address] [place] [address] Care Team Providers Care Jacquard Plate Maker Name Role Phone BOY DELONG Primary [...] RX PRESCRIPT ION HEALT H [place] [facility] Mar 07, 2020 [facility] [id number] MARGARETH HONG RRYL PATIENT Selected Encounter This section includes the information on record at [place] for the Encounter. Date/Time Encounter Type Encounter Description Reason Pro vider Source Nov 17, 2023 08:18 AM Outpatient Encounter EVENT (HISTORICAL) IHE Encounter Template Text not used by [place] Plan of Treatment: Future Appointments (+ 6 [...] Date/Time Appointment Type Appointme nt Facility Name Jan 06, 2024 10:00 AM [facility] Jan 10, 2024 11:15 AM AMBULATORY - NONE [facility] [place] [facility] Jan 10, 2024 11:30 AM AMBULATORY - NONE [facility] [facility] Jan 13, 2024 10:00 AM AMBULATORY - PSYCHIATRY [facility] [place] [facility] Jan 13, 2024 01:00 PM AMBULATORY - MEDICINE [facility] [place] [facility] Feb 03, 2024 03:30 PM [facility] Feb 17, 2024 11:00 AM AMBULATORY - REHAB [facility] [place] Mar 01, 2024 11:00 AM AMBULATORY - MEDICINE [facility] [facility] Apr 06, 2024 10:00 AM AMBULATORY - PSYCHIATRY [facility] [place] [facility] May 14, 2024 10:30 AM AMBULATORY - MEDICINE [place] [facility] [facility] Lab Results: +/- 30 days [...] Range Comment Nov 17, 2023 08:30 AM [facility] CULTURE,BODY FLUID PANEL(C.D.H) Specimen Type: SYNOVIAL FLUID Comment: Refer to CPRS: [place] Imag. Display for Lab Results Ordering Provider: REESE MCFADDEN Report Released Date/Time: Nov 17, 2023 09:15 AM Reporting Lab: [place] [facility] [place] [facility] [address] [facility] [address] Performing Lab: [place] [facility] [facility] 30 [facility] [address] GRAM STAIN(cdh) comment ANAEROBIC CULTURE(cdh) comment CULTURE,BODY FLUID(cdh) comment Nov 17, 2023 08:30 AM [facility] [place] [facility] GLUCOSE, SYNOVIAL (q) Specimen Type: SYNOVIAL FLUID Comment: Synovial fluid glucose values are equivalent to plasma values if obtained from a fasting patient. The difference between the plasma glucose and synovial fluid glucose value should be <10 mg/dL. Test Performed by [employer], [facility], [address] [place], [place] Rajesh Doss M.D., Ph.D., Director of Laboratories , CLIA [id number] TEST PERFORMED AT: , Ordering Provider: REESE MCFADDEN Report Released Date/Time: Nov 17, 2023 09:15 AM Reporting Lab: [facility] [address] [facility] [address] Performing Lab: [facility] [address] [address] GLUCOSE, SYNOVIAL (q) 145 mg/dL Nov 17, 2023 08:30 AM [facility] SYNOVIAL FLUID CRYSTALS PANEL Specimen Type: SYNOVIAL FLUID No comment entered. Ordering Provider: REESE MCFADDEN Report Released Date/Time: Nov 17, 2023 09:24 AM Reporting Lab: [facility] [address] [facility] [address] Performing Lab: [facility] [address] [facility] [address] CRYSTALS,BF Positive Negative MSU CRYSTALS,BF Present Negative MSU CRYSTAL EXTRA,BF Present Negative MSU CRYSTAL INTRA,BF Present Negative Nov 17, 2023 08:30 AM [facility] CELL COUNT (SYNOVIAL FLUID) Specimen Type: SYNOVIAL FLUID Comment: *CRYSTALS Not Performed: Nov 17, 2023@09:25 by [id number] *ART MODEL Reason: see wrleanne [id number] for results Ordering Provider: REESE MCFADDEN Report Released Date/Time: Nov 17, 2023 09:15 AM Reporting Lab: [facility] [address] [facility] [address] Performing Lab: [facility] [address] [facility] [address] WBC 350 RBC <3000 COLOR Y VOLUME 2ml mL APPEARANCE C NUCLEATED CELL # comment 0-200
--- OUTSIDE RECORDS SUMMARY | 2024-02-15 02:51 | XMS_ITS | Encounter Summary ---
Author Name Department of [place]a [place] Address [address] [place] [address] Care Team Providers Care Hand Tapper Name Role Phone BOY DELONG Primary Care [...] ION HEALT H [place] [facility] Mar 07, 2020 [facility] [id number] MARGARETH HONG RRYL PATIENT Selected Encounter This section includes the information on record at [place] for the Encounter. Date/Time Encounter Type Encounter Description Reason Pro vider Source Nov 14, 2023 03:51 PM Outpatient Encounter PM&RS PHYSICIAN IHE Encounter Template Text not used by [place] Plan of Treatment: Future Appointments (+ 6 months) and Future Tests (+/- 45 days) The Plan of Treatment section includes future care activities for the patient from all [place] treatmentfacilities. This section includes future appointments and future orders which are active, pending or scheduled. Future Appointments This section includes appointments that were scheduled to occur 6 months from the date of the Encounter, up to a maximum of 20 appointments. The data comes from all [place] treatment facilities. Appointment Date/Time Appointment Type Appointme nt Facility Name Nov 17, 2023 08:00 AM AMBULATORY - MEDICINE [facility] [place] [facility] Jan 06, 2024 10:00 AM [facility] Jan 10, 2024 11:15 AM AMBULATORY - NONE [facility] [place] [facility] Jan 10, 2024 11:30 AM AMBULATORY - NONE [facility] [place] [facility] Jan 13, 2024 10:00 AM AMBULATORY - PSYCHIATRY [facility] [place] [facility] Jan 13, 2024 01:00 PM AMBULATORY - MEDICINE [place] [facility] [place] [facility] Feb 03, 2024 03:30 PM AMBULATORY - MEDICINE [facility] Feb 17, 2024 11:00 AM AMBULATORY - [facility]AB [facility] Mar 01, 2024 11:00 AM AMBULATORY - MEDICINE [place] [facility] [place] [facility] Apr 06, 2024 10:00 AM [facility] Lab Results: +/- 30 days of the encounter This section includes the Chemistry and Hematology Lab Results on record with [place] for the patient. Radiology Reports and Pathology Reports are provided separately, in subsequent sections. Lab Results This section contains the Chemistry/Hematology Results that were resulted 30 days before or 30 daysafter the date of the Encounter. Date/Time Source Result Type Result - Unit Interpretation Reference Range Comment Nov 17, 2023 08:30 AM [facility] CULTURE,BODY FLUID PANEL(C.D.H) Specimen Type: SYNOVIAL FLUID Comment: Refer to CPRS: [place] Imag. Display for Lab Results Ordering Provider: REESE MCFADDEN Report Released Date/Time: Nov 17, 2023 09:15 AM Reporting Lab: [facility] [place] [place] [facility] [address] [facility] [address] Performing Lab: [facility] [place] [place] [facility] [address] [facility] [address] GRAM STAIN(cdh) comment ANAEROBIC CULTURE(cdh) comment CULTURE,BODY FLUID(cdh) comment Nov 17, 2023 08:30 AM [facility] GLUCOSE, SYNOVIAL (q) Specimen Type: SYNOVIAL FLUID Comment: Synovial fluid glucose values are equivalent to plasma values if obtained from a fasting patient. The difference between the plasma glucose and synovial fluid glucose value should be <10 mg/dL. Test Performed by [facility], [facility], [address] [place], [place] Rajesh Doss M.D., Ph.D., Director of Laboratories , CLIA [id number] TEST PERFORMED AT: , Ordering Provider: REESE MCFADDEN Report Released Date/Time: Nov 17, 2023 09:15 AM Reporting Lab: [facility] [address] [facility] [address] Performing Lab: [facility] [address] [address] GLUCOSE, SYNOVIAL (q) 145 mg/dL Nov 17, 2023 08:30 AM [facility] SYNOVIAL FLUID CRYSTALS PANEL Specimen Type: SYNOVIAL FLUID No comment entered. Ordering Provider: REESE MCFADDEN Report Released Date/Time: Nov 17, 2023 09:24 AM Reporting Lab: [facility] [address] [facility] [address] Performing Lab: [facility] [address] [facility] [address] CRYSTALS,BF Positive Negative MSU CRYSTALS,BF Present Negative MSU CRYSTAL EXTRA,BF Present Negative MSU CRYSTAL INTRA,BF Present Negative Nov 17, 2023 08:30 AM [facility] CELL COUNT (SYNOVIAL FLUID) Specimen Type: SYNOVIAL FLUID Comment: *CRYSTALS Not Performed: Nov 17, 2023@09:25 by [id number] *LOSS CONTROL TECHNICIAN Reason: see wrleanne [id number] for results Ordering Provider: REESE MCFADDEN Report Released Date/Time: Nov 17, 2023 09:15 AM Reporting Lab: [facility] [address] [facility] [address] Performing Lab: [address] [address] WBC 350 RBC <3000 COLOR Y VOLUME 2ml mL APPEARANCE C NUCLEATED CELL # comment 0-200 Encounter Notes: All associated encounter notes This section contains the clinical notes associated to the Encounter. Date/Time Encounter Note(s) Provider Source Nov 14, 2023 03:51 PM TELEPHONE ENCOUNTE R NOTE: LOCAL TITLE: TELEPHONE NOTE/SPECIALTY CLINIC STANDARD TITLE: TELEPHONE ENCOUNTER NOTE DATE OF NOTE: NOV 14, 2023@15:51 ENTRY DATE: NOV 14, 2023@15:51:30 AUTHOR: SABRINA GABRIEL EXP COSIGNER: URGENCY: STATUS: COMPLETED TELEPHONE NOTE/SPECIALTY CLINIC Has ADDENDA Called to [facility] no showed appt 11/13 at 3pm. Perry has his days mixed up, thought it was for tmrw. Over the weekend he isnt sure what he did but one of his knees is swollen. Wanted to know what to do, should he get it xrayed? Is there anything that should or shouldnt be done? Would like a call back regarding this. Primary number confirmed. /barbara GABRIEL ADVANCED SHAREPOINT NET DEVELOPER Signed: 11/14/2023 15:53 Receipt Acknowledged By: 11/15/2023 07:36 /barbara Orozco LPN LPN 11/15/2023 08:23 /barbara Grewal RN Med Rehab 11/15/2023 ADDENDUM STATUS: COMPLETED scheduled for November 17, 2023 @ 0800 - /barbara Orozco LPN LPN Signed: 11/15/2023 07:38 11/15/2023 ADDENDUM STATUS: COMPLETED Called , informed him provider will evaluate knee when he is here 11/16, for the next couple of days rest, elevate, and ice it, vet apprecitive for call. /barbara Grewal RN Med Rehab Signed: 11/15/2023 08:24 [facility]INA [facility]ABRIEL [facility]
--- OUTSIDE RECORDS SUMMARY | 2024-02-15 02:51 | XMS_ITS | Encounter Summary ---
Author Name [place] Organization [place] Address [address] [place] [address] Care Team Providers Care Orthotic Technician Name Role Phone BOY DELONG Primary Care [...] RX PRESCRIPT ION HEALT H [place] [facility] Mar 07, [address] [facility] [id number] MARGARETH HONG RRYL PATIENT Selected Encounter This section includes the information on record at [place] for the Encounter. Date/Time Encounter Type Encounter Description Reason Pro vider Source August 05, 2023 12:00 PM Outpatient Encounter COMMUNITY CARE CONSULT IHE [...] MEDICINE [facility] [place] [facility] Aug 19, 2023 10:00 AM AMBULATORY - REHAB [facility] [place] Sep 09, 2023 09:30 AM AMBULATORY - PSYCHIATRY [facility] [place] [facility] Oct 14, 2023 09:30 AM AMBULATORY - PSYCHIATRY [facility] [place] [facility] Oct 28, 2023 10:00 AM AMBULATORY - PSYCHIATRY [facility] [place] [facility] Nov 11, 2023 11:00 AM AMBULATORY - PSYCHIATRY [facility] [place] [facility] Nov 14, 2023 03:00 PM AMBULATORY - MEDICINE [facility] [place] [facility] Nov 17, 2023 08:00 AM AMBULATORY - MEDICINE [facility] [place] [facility] Jan 06, 2024 10:00 AM AMBULATORY - MEDICINE [place] Jan 10, 2024 11:15 AM AMBULATORY - NONE [facility] [facility] Jan 10, 2024 11:30 AM AMBULATORY - NONE [facility] [place] [facility] Jan 13, 2024 10:00 AM AMBULATORY - PSYCHIATRY [facility] [place] [facility] Jan 13, 2024 01:00 PM AMBULATORY - MEDICINE [facility] [place] [facility] Feb 03, 2024 03:30 PM [facility] Encounter Notes: All associated encounter notes This section contains the clinical notes associated to the Encounter. Date/Time Encounter Note(s) Provider Source August 05, 2023 12:00 PM NONVA CONSULT: LOCAL TITLE: COMMUNITY CARE-CONSULT RESULT NOTE STANDARD TITLE: NONVA CONSULT DATE OF NOTE: AUGUST 05, 2023@12:00 ENTRY DATE: NOV 01, 2023@14:27:14 AUTHOR: ROSHAN BAÑUELOS EXP COSIGNER: URGENCY: STATUS: COMPLETED VistA Imaging - Scanned Document SCANNED DOCUMENT SIGNATURE NOT REQUIRED Electronically Filed: 11/01/2023 by: ROSHAN UMANZOR [place] [facility] [facility]
--- OUTSIDE RECORDS SUMMARY | 2024-02-15 02:52 | XMS_ITS ---
Author Name [facility] [place] [facility] [place] Address [address] [place] [address] Care Team Providers Care Corporate Real Estate Specialist Name Role Phone BOY DELONG Primary [...] OPTUM RX PRESCRIPT ION HEALT H NEW [facility] Mar 07, 2020 [facility] [id number] MARGARETH HONG RRYL PATIENT Selected Encounter This section includes the information on record at [place] for the Encounter. Date/Time Encounter Type Encounter Description Reason Provider Source Nov 17, 2023 08:00 AM OFFICE O/P EST LOW 20 MIN PM&RS PHYSICIAN ICD-10-CM M17.0 Bilateral primary osteoarthritis of knee NNAMDI ERIC E Encounter Template Text not used by [place] Assessments - Encounter Diagnoses This section includes the primary and secondary diagnoses documented for the Encounter. Date/Time Primary/Secondary Diagnosis Diagnosis Name Provider Source Nov 17, 2023 08:46 AM PRIMARY Bilateral primary osteoarthritis of knee NNAMDI ERIC [place] [facility] Plan of Treatment: Future Appointments (+ 6 months) and Future Tests (+/- 45 days) The Plan of Treatment section includes future care activities for the patient from [facility] [place] [facility] This section includes future appointments and [...] 06, 2024 10:00 AM AMBULATORY - MEDICINE [facility] Jan 10, 2024 11:15 AM AMBULATORY - NONE [place] [facility] [place] [facility] Jan 10, 2024 11:30 AM AMBULATORY - NONE [place] [facility] [place] [facility] Jan 13, 2024 10:00 AM AMBULATORY - PSYCHIATRY [facility] [place] [facility] Jan 13, 2024 01:00 PM AMBULATORY - MEDICINE [facility] [place] [facility] Feb 03, 2024 03:30 PM AMBULATORY - MEDICINE [facility] Feb 17, 2024 11:00 AM AMBULATORY - REHAB [facility] Mar 01, 2024 11:00 AM AMBULATORY [place]ICINE [place] [facility] [place] [facility] Apr 06, 2024 10:00 AM AMBULATORY [place]IATRY [place] [facility] [place] [facility] May 14, 2024 10:30 AM AMBULATORY - [place]ICINE [place] [facility] [place] [facility] Lab Results: +/- 30 days of [...] Range Comment Nov 17, 2023 08:30 AM [place] [facility] [place] [facility] CULTURE,BODY FLUID PANEL(C.D.H) Specimen Type: SYNOVIAL FLUID Comment: Refer to CPRS: [facility] Display for Lab Results Ordering Provider: REESE ERIC Report Released Date/Time: Nov 17, 2023 09:15 AM Reporting Lab: [facility] [address] [facility] [address] Performing Lab: [facility] [address] [facility] [address] GRAM STAIN(cdh) comment ANAEROBIC CULTURE(cdh) comment CULTURE,BODY FLUID(cdh) comment Nov 17, 2023 08:30 AM [facility] GLUCOSE, SYNOVIAL (q) Specimen Type: SYNOVIAL FLUID Comment: Synovial fluid glucose values are equivalent to plasma values if obtained from a fasting patient. The difference between the plasma glucose and synovial fluid glucose value should be <10 mg/dL. Test Performed by [facility], [facility], [address] [place] [address] Rajesh Doss M.D., Ph.D., Director of Laboratories , [place] [id number] TEST PERFORMED AT: , Ordering Provider: REESE ERIC Report Released Date/Time: Nov 17, 2023 09:15 AM Reporting Lab: [facility] [address] [facility] [address] Performing Lab: [facility] [address] [address] GLUCOSE, SYNOVIAL (q) 145 mg/dL Nov 17, 2023 08:30 AM [facility] SYNOVIAL FLUID CRYSTALS PANEL Specimen Type: SYNOVIAL FLUID No comment entered. Ordering Provider: REESE ERIC Report Released Date/Time: Nov 17, 2023 09:24 AM Reporting Lab: [facility] [address] [facility] [address] Performing Lab: [facility] [address] [facility] [address] CRYSTALS,BF Positive Negative MSU CRYSTALS,BF Present Negative MSU CRYSTAL EXTRA,BF Present Negative MSU CRYSTAL INTRA,BF Present Negative Nov 17, 2023 08:30 AM [facility] CELL COUNT (SYNOVIAL FLUID) Specimen Type: SYNOVIAL FLUID Comment: *CRYSTALS Not Performed: Nov 17, 2023@09:25 [place] [id number] *[address] [facility] ASSOCIATE JUSTICE Reason: see wrled [id number] for results Ordering Provider: REESE ERIC Report Released Date/Time: Nov 17, 2023 09:15 AM Reporting Lab: [facility] [address] [facility] [address] Performing Lab: [place] [facility] [address] [facility] [address] WBC 350 RBC <3000 COLOR Y VOLUME 2ml mL APPEARANCE C NUCLEATED CELL # comment 0-200 Encounter Notes: All associated encounter notes This section contains the clinical notes associated to the Encounter. Date/Time Encounter Note(s) Provider Source Nov 23, 2023 08:00 AM ADDENDUM: LOCAL TITLE: Addendum STANDARD TITLE: ADDENDUM DATE OF NOTE: NOV 23, 2023@08:00:50 ENTRY DATE: NOV 23, 2023@08:00:51 AUTHOR: SOTERO ERIC EXP COSIGNER: URGENCY: STATUS: COMPLETED For PCP. Aspirated and results listed. Would suggest initiating standard gout protocol for acute and chronic treatment. /ivone/ SOTERO ESPINALP Signed: 11/23/2023 08:02 Receipt Acknowledged By: 11/23/2023 08:33 /ivone/ BOY DELONG PA-C STAFF PHYSICIAN QUALITY ASSURANCE SPECIALIST --- Original Document --- 11/17/23 PM&R BACK/JOINT PROCEDURE NOTE: PROCEDURE: Bilateral intra-articular knee injection with hyluronic Acid, Durolane INDICATION: Knee pain.Osteoarthritis ANESTHESIA: None. INFORMED CONSENT: Obtained verbally, and through IMED. [place] had 2 events over the past month that elicited a great deal of discomfort. He had a fall 3 weeks ago and developed some swelling swelling subsided. Pain was primarily in the left knee. There was no twisting involved but he simply fell to the side when he misstepped. Since that time he has been having some difficulties bending the knee. The left knee and yet another episode this past weekend after walking for extended period of time had another effusion. Exam demonstrates left knee effusion, moderate. He has discomfort in flexion with limitation to 100 degrees. He has terminal extension. No instability. Severe bilateral osteoarthritis noted by x-ray. Right knee shows no effusion 130 degrees of flexion with terminal extension. No instability. The steps of the procedure, potential risks and benefits of the intra-articular knee injection, as well as alternatives were discussed with patient. The potential risks include, but not limited to: local injection reaction, pain, bruising/hematoma, nerve damage, adverse side effects to hyaluronic acid, infection, and swelling of the knee. Patient agreed to proceed with the injection. TIME OUT NOTE TIME:Nov@08:15 correctly stated: [X]Full name: LUPILLO HONG [X]Last 4 of #: [id number] [X]: Oct PROVIDER NAME: Sotero Eric PA-c STAFF NAME: Mya Grewal RN Lot #: [id number] Exp: 2026-03-06 The procedure was performed with the patient in the seated position. The Right knee was flexed . The anteromedial approach was performed and sterile techniques were utilized throughout today's procedure. Landmarks were palpated and the area of interest was marked. After cleaning the area with Povidone-iodine x 3, a 25G 1.5 needle and attached syringe were introduced superolaterally with 2cc of 1% lidocaine into the subcutaneous tissues. Needle was removed and then the 23-gauge 1 1/2 inch needle until loss of resistance. After negative aspiration for heme, 60 mg Durolane was injected without difficulties. The needle was withdrawn and light compression was applied with a 2x2 gauze until bleeding stopped. A band-aid was applied. Attention was then paid to the left knee. Moderate effusion noted. Supine positioning. 30 cc of joint fluid was aspirated and yellow no haziness noted. The last 6 cc syringe was blood-tinged likely from the lateral geniculate vessels. Then injected with 60 mg Durolane. Needle was removed and pressure applied for 2 minutes. Band-Aid then applied No complications. No blood loss. The patient tolerated the procedure well without any immediate adverse side effects. Patient was instructed on the use of ice prn post injection pain/swelling. The patient was able to ambulate out of the office today, and was discharged home with instructions to monitor for any adverse reactions/side effects, and to contact me with any issues. Pre-procedure pain level: 6/10 Post-procedure pain level: 5/10 Assessment and plan: 62-year-old with bilateral severe lateral compartment arthritis. If he does not see any significant improvement x-rays demonstrate severe enough arthritis that joint replacement would be appropriate. Postinjection instructions provided including avoidance of anti-inflammatory for 3 days. Icing and reduced activity. Risks and benefits of pseudo septic reaction discussed. MDM: 25 minutes Medication Reconciliation: Outpatient: Has the patient been taking medications as documented in the EMLR? YES: The patient has been taking medications as documented in the EMLR. Essential Medication List for Review used to complete this medication reconciliation. INCLUDED IN THIS LIST: Alphabetical list of active outpatient prescriptions dispensed from this [place] (local) and dispensed from another [place] or [place] facility (remote) as well as [...] whether with a VA or non-VA provider. JLV Link Data on this list may not be complete. Please check [employer]. Allergies/ADRs (Tool #5) FACILITY ALLERGY/ADR -------- No Remote Allergy/ADR Data available for this patient [place] [facility] [facility] [facility] No Known Allergies Med Recon NoGlossary (Tool #1) INCLUDED IN THIS LIST: Alphabetical list of active outpatient prescriptions dispensed from this [place] (local) and dispensed from another [place] or [place] facility (remote) as well as inpatient orders (local pending and active), local clinic medications, locally documented non-VA medications, and local prescriptions that have or been discontinued in the past 90 days. Non-VA Meds Last Documented On: Jun 05, 2021 NOTE The display of VA prescriptions dispensed from another [place] or [facility] facility (remote) is limited to active outpatient prescription entries matched to National Drug File at the originating site and may not include some items such as investigational drugs, compounds, etc. NOT INCLUDED IN THIS LIST: Medications self-entered by the patient into personal health records (i.e. SnapUp) are NOT included in this list. Non-VA [...] MOUTH ONCE DAILY NEEDED FOR BRONCHOSPASM Rx# [id number] Last Released: 06/10/23 Qty/Days Supply: 04/05 Rx Expiration Date: 06/10/24 Refills Remainin Indication: FOR BRONCHOSPASM OUTPT AMLODIPINE BESYLATE 10MG TAB (Status = Active) TAKE ONE TABLET BY MOUTH ONCE DAILY FOR BLOOD PRESSURE/HEART, DO NOT TAKE WITH GRAPEFRUIT JUICE Rx# [id number] Last Released: 08/09/23 Qty/Days Supply: Rx Expiration Date: 04/04/24 Refills Remainin OUTPT CELECOXIB 200MG CAP (Status = Active) TAKE ONE CAPSULE BY MOUTH TWICE DAILY NEEDED FOR RHEUMATOID ARTHRITIS Rx# [id number] Last Released: 08/11/23 Qty/Days Supply: Rx Expiration Date: 08/09/24 Refills Remainin Indication: FOR RHEUMATOID ARTHRITIS OUTPT DOXEPIN 3MG TAB (Status = Active) TAKE ONE TABLET BY MOUTH AT BEDTIME NEEDED FOR INSOMNIA Rx# [id number] Last Released: 09/19/23 Qty/Days Supply: Rx Expiration Date: 09/09/24 Refills Remainin Indication: FOR CHRONIC TROUBLE SLEEPING OUTPT HYALURONATE NA (DUROLANE)20MG/ML SYR 3ML (Status = Active) INJECT 60MG INTRA-ARTICULAR ONE TIME OSTEOARTHRITIS OF THE KNEE Rx# [id number] Last Released: 11/09/23 Qty/Days Supply: Rx Expiration Date: 04/01/24 Refills Remainin Indication: OSTEOARTHRITIS OF THE KNEE OUTPT HYDROCHLOROTHIAZIDE 25MG TAB (Status = Active) TAKE ONE-HALF TABLET BY MOUTH ONCE DAILY Rx# [id number] Last Released: 04/04/23 Qty/Days Supply: Rx Expiration Date: 04/04/24 Refills Remainin Indication: FOR HIGH BLOOD PRESSURE OUTPT LORATADINE 10MG TAB (Status = Active) TAKE ONE TABLET BY MOUTH ONCE DAILY FOR ALLERGY Rx# [id number] Last Released: 09/30/23 Qty/Days Supply: Rx Expiration Date: 06/10/24 Refills Remainin Indication: FOR ALLERGY OUTPT LOSARTAN 25MG TAB (Status = ) TAKE ONE TABLET BY MOUTH ONCE DAILY FOR BLOOD PRESSURE/HEART Rx# [id number] Last Released: 08/20/23 Qty/Days Supply: Rx Expiration Date: 09/08/23 Refills Remainin Indication: FOR HIGH BLOOD PRESSURE OUTPT MULTIVITAMIN CAP/TAB (Status = Active) TAKE 1 TABLET BY MOUTH ONCE DAILY FOR VITAMIN SUPPLEMENTATION Rx# [id number] Last Released: 11/01/23 Qty/Days Supply: Rx Expiration Date: 10/28/24 Refills Remainin Indication: FOR VITAMIN SUPPLEMENTATION OUTPT SERTRALINE HCL 100MG TAB (Status = Discontinued) TAKE ONE-HALF TABLET BY MOUTH ONCE DAILY FOR MAJOR DEPRESSIVE DISORDER Rx# [id number] Last Released: 09/15/23 Qty/Days Supply: Rx Expiration Date: 09/09/24 Refills Remainin Indication: FOR MAJOR DEPRESSIVE DISORDER OUTPT SERTRALINE HCL 100MG TAB (Status = Active) TAKE ONE-HALF TABLET BY MOUTH ONCE DAILY FOR MAJOR DEPRESSIVE DISORDER Rx# [id number] Last Released: 11/01/23 Qty/Days Supply: Rx Expiration Date: 10/28/24 Refills Remainin Indication: FOR MAJOR DEPRESSIVE DISORDER OUTPT SERTRALINE HCL 50MG TAB (Status = Discontinued) TAKE ONE-HALF TABLET BY MOUTH ONCE DAILY FOR MAJOR DEPRESSIVE DISORDER Rx# [id number] Last Released: 08/11/23 Qty/Days Supply: Rx Expiration Date: 08/05/24 Refills Remainin Indication: FOR MAJOR DEPRESSIVE DISORDER OUTPT SILDENAFIL CITRATE 100MG TAB (Status = Active) TAKE ONE TABLET BY MOUTH DIRECTED TAKE 1 HOUR PRIOR TO SEXUAL ACTIVITY TRY ONE HALF PILL; IF ONE HALF DOES NOT WORK THEN MAY TAKE ONE WHOLE TABLET NEXT TIME; NEVER TAKE MORE THAN ONE TABLET AT ONE TIME Rx# [id number] Last Released: 07/27/23 Qty/Days Supply: 09/03 Rx Expiration Date: 07/25/24 Refills Remainin Indication: FOR ERECTILE DYSFUNCTION SUPPLIES OUTPT MEDICATION ORGANIZER 7DAY/2 SLOT (Status = Active) USE 1 ORGANIZER DIRECTED DIRECTED BY PROVIDER Rx# [id number] Last Released: 09/13/23 Qty/Days Supply: Rx Expiration Date: 12/08/23 Refills Remainin /ivone/ SOTERO ERIC [facility] [place] Signed: 11/17/2023 08:46 11/23/2023 ADDENDUM STATUS: COMPLETED Knee aspirate SYNOVIAL FLUID CRYSTALS PANEL SYNOVIAL SP LB #[id number] Collection time: Nov 17, 2023@08:30 Test Name Result Units Range --------- ------ ----- ----- CRYSTALS,BF Positive Ref: Negative MSU CRYSTALS,BF Present Ref: Negative MSU CRYSTAL EXTRA,BF Present Ref: Negative MSU CRYSTAL INTRA,BF Present Ref: Negative Will inform PCP to initiate treatment for gout. He does have tricompratmental arthritis secondarily. /es/ SOTERO ERIC [facility] [place] Signed: 11/23/2023 07:59 SOTERO ERIC [place] [facility] [place] [facility] Nov 17, 2023 08:36 AM PHYSICAL MEDICINE REHAB NOTE: LOCAL TITLE: PM&R BACK/JOINT PROCEDURE NOTE STANDARD TITLE: PHYSICAL MEDICINE REHAB NOTE DATE OF NOTE: NOV 17, 2023@08:36 ENTRY DATE: NOV 17, 2023@08:36:46 AUTHOR: SOTERO ERIC EXP COSIGNER: URGENCY: STATUS: COMPLETED PM&R BACK/JOINT PROCEDURE NOTE Has ADDENDA PROCEDURE: Bilateral intra-articular knee injection with hyluronic Acid, Durolane INDICATION: Knee pain.Osteoarthritis ANESTHESIA: None. INFORMED CONSENT: Obtained verbally, and through IMED. had 2 events over the past month that elicited a great deal of discomfort. He had a fall 3 weeks ago and developed some swelling swelling subsided. Pain was primarily in the left knee. There was no twisting involved but he simply fell to the side when he misstepped. Since that time he has been having some difficulties bending the knee. The left knee and yet another episode this past weekend after walking for extended period of time had another effusion. Exam demonstrates left knee effusion, moderate. He has discomfort in flexion with limitation to 100 degrees. He has terminal extension. No instability. Severe bilateral osteoarthritis noted by x-ray. Right knee shows no effusion 130 degrees of flexion with terminal extension. No instability. The steps of the procedure, potential risks and benefits of the intra-articular knee injection, as well as alternatives were discussed with patient. The potential risks include, but not limited to: local injection reaction, pain, bruising/hematoma, nerve damage, adverse side effects to hyaluronic acid, infection, and swelling of the knee. Patient agreed to proceed with the injection. TIME OUT NOTE TIME:Nov@08:15 [place] correctly stated: [X]Full name: LUPILLO HONG [X]Last of #: [id number] [X]: Oct PROVIDER NAME: Sotero Eric PA-c STAFF NAME: Mya Grewal RN Lot #: [id number] Exp: 2026-03-06 The procedure was performed with the patient in the seated position. The Right knee was flexed . The anteromedial approach was performed and sterile techniques were utilized throughout today's procedure. Landmarks were palpated and the area of interest was marked. After cleaning the area with Povidone-iodine x 3, a 25G 1.5 needle and attached syringe were introduced superolaterally with 2cc of 1% lidocaine into the subcutaneous tissues. Needle was removed and then the 23-gauge 1 1/2 inch needle until loss of resistance. After negative aspiration for heme, 60 mg Durolane was injected without difficulties. The needle was withdrawn and light compression was applied with a 2x2 gauze until bleeding stopped. A band-aid was applied. Attention was then paid to the left knee. Moderate effusion noted. Supine positioning. 30 cc of joint fluid was aspirated and yellow no haziness noted. The last 6 cc syringe was blood-tinged likely from the lateral geniculate vessels. Then injected with 60 mg Durolane. Needle was removed and pressure applied for 2 minutes. Band-Aid then applied No complications. No blood loss. The patient tolerated the procedure well without any immediate adverse side effects. Patient was instructed on the use of ice prn post injection pain/swelling. The patient was able to ambulate out of the office today, and was discharged home with instructions to monitor for any adverse reactions/side effects, and to contact me with any issues. Pre-procedure pain level: 6/10 Post-procedure pain level: 5/10 Assessment and plan: 62-year-old with bilateral severe lateral compartment arthritis. If he does not see any significant improvement x-rays demonstrate severe enough arthritis that joint replacement would be appropriate. Postinjection instructions provided including avoidance of anti-inflammatory for 3 days. Icing and reduced activity. Risks and benefits of pseudo septic reaction discussed. MDM: 25 minutes Medication Reconciliation: Outpatient: Has the patient [...] whether with a VA or non-VA provider. JLV Link Data on this list may not be complete. Please check [facility]. Allergies/ADRs (Tool #5) FACILITY ALLERGY/ADR -------- No Remote Allergy/ADR Data available for this patient [place] [facility] [facility] No Known Allergies Med Recon NoGloary (Tool #1) INCLUDED IN THIS LIST: Alphabetical list of active outpatient prescriptions dispensed from this [place] (local) and dispensed from another [place] or [facility] facility (remote) as well as inpatient orders [...] the patient into personal health records (i.e. SnapUp) are NOT included in this list. Non-VA [...] MOUTH ONCE DAILY NEEDED FOR BRONCHOSPASM Rx# [id number] Last Released: 06/10/23 Qty/Days Supply: 04/05 Rx Expiration Date: 06/10/24 Refills Remainin Indication: FOR BRONCHOSPASM OUTPT AMLODIPINE BESYLATE 10MG TAB (Status = Active) TAKE ONE TABLET BY MOUTH ONCE DAILY FOR BLOOD PRESSURE/HEART, DO NOT TAKE WITH GRAPEFRUIT JUICE Rx# [id number] Last Released: 08/09/23 Qty/Days Supply: Rx Expiration Date: 04/04/24 Refills Remainin OUTPT CELECOXIB 200MG CAP (Status = Active) TAKE ONE CAPSULE BY MOUTH TWICE DAILY NEEDED FOR RHEUMATOID ARTHRITIS Rx# [id number] Last Released: 08/11/23 Qty/Days Supply: Rx Expiration Date: 08/09/24 Refills Remainin Indication: FOR RHEUMATOID ARTHRITIS OUTPT DOXEPIN 3MG TAB (Status = Active) TAKE ONE TABLET BY MOUTH AT BEDTIME NEEDED FOR INSOMNIA Rx# [id number] Last Released: 09/19/23 Qty/Days Supply: Rx Expiration Date: 09/09/24 Refills Remainin Indication: FOR CHRONIC TROUBLE SLEEPING OUTPT HYALURONATE NA (DUROLANE)20MG/ML SYR 3ML (Status = Active) INJECT 60MG INTRA-ARTICULAR ONE TIME OSTEOARTHRITIS OF THE KNEE Rx# [id number] Last Released: 11/09/23 Qty/Days Supply: Rx Expiration Date: 04/01/24 Refills Remainin Indication: OSTEOARTHRITIS OF THE KNEE OUTPT HYDROCHLOROTHIAZIDE 25MG TAB (Status = Active) TAKE ONE-HALF TABLET BY MOUTH ONCE DAILY Rx# [id number] Last Released: 04/04/23 Qty/Days Supply: Rx Expiration Date: 04/04/24 Refills Remainin Indication: FOR HIGH BLOOD PRESSURE OUTPT LORATADINE 10MG TAB (Status = Active) TAKE ONE TABLET BY MOUTH ONCE DAILY FOR ALLERGY Rx# [id number] Last Released: 09/30/23 Qty/Days Supply: Rx Expiration Date: 06/10/24 Refills Remainin Indication: FOR ALLERGY OUTPT LOSARTAN 25MG TAB (Status = ) TAKE ONE TABLET BY MOUTH ONCE DAILY FOR BLOOD PRESSURE/HEART Rx# [id number] Last Released: 08/20/23 Qty/Days Supply: Rx Expiration Date: 09/08/23 Refills Remainin Indication: FOR HIGH BLOOD PRESSURE OUTPT MULTIVITAMIN CAP/TAB (Status = Active) TAKE 1 TABLET BY MOUTH ONCE DAILY FOR VITAMIN SUPPLEMENTATION Rx# [id number] Last Released: 11/01/23 Qty/Days Supply: Rx Expiration Date: 10/28/24 Refills Remainin Indication: FOR VITAMIN SUPPLEMENTATION OUTPT SERTRALINE HCL 100MG TAB (Status = Discontinued) TAKE ONE-HALF TABLET BY MOUTH ONCE DAILY FOR MAJOR DEPRESSIVE DISORDER Rx# [id number] Last Released: 09/15/23 Qty/Days Supply: Rx Expiration Date: 09/09/24 Refills Remainin Indication: FOR MAJOR DEPRESSIVE DISORDER OUTPT SERTRALINE HCL 100MG TAB (Status = Active) TAKE ONE-HALF TABLET BY MOUTH ONCE DAILY FOR MAJOR DEPRESSIVE DISORDER Rx# [id number] Last Released: 11/01/23 Qty/Days Supply: Rx Expiration Date: 10/28/24 Refills Remainin Indication: FOR MAJOR DEPRESSIVE DISORDER OUTPT SERTRALINE HCL 50MG TAB (Status = Discontinued) TAKE ONE-HALF TABLET BY MOUTH ONCE DAILY FOR MAJOR DEPRESSIVE DISORDER Rx# [id number] Last Released: 08/11/23 Qty/Days Supply: Rx Expiration Date: 08/05/24 Refills Remainin Indication: FOR MAJOR DEPRESSIVE DISORDER OUTPT SILDENAFIL CITRATE 100MG TAB (Status = Active) TAKE ONE TABLET BY MOUTH DIRECTED TAKE 1 HOUR PRIOR TO SEXUAL ACTIVITY TRY ONE HALF PILL; IF ONE HALF DOES NOT WORK THEN MAY TAKE ONE WHOLE TABLET NEXT TIME; NEVER TAKE MORE THAN ONE TABLET AT ONE TIME Rx# [id number] Last Released: 07/27/23 Qty/Days Supply: 09/03 Rx Expiration Date: 07/25/24 Refills Remainin Indication: FOR ERECTILE DYSFUNCTION SUPPLIES OUTPT MEDICATION ORGANIZER 7DAY/2 SLOT (Status = Active) USE 1 ORGANIZER DIRECTED DIRECTED BY PROVIDER Rx# [id number] Last Released: 09/13/23 Qty/Days Supply: Rx Expiration Date: 12/08/23 Refills Remainin /HIEN Vickers Signed: 11/17/2023 08:46 11/23/2023 ADDENDUM STATUS: COMPLETED Knee aspirate SYNOVIAL FLUID CRYSTALS PANEL SYNOVIAL SP LB #[id number] Collection time: Nov 17, 2023@08:30 Test Name Result Units Range --------- ------ ----- ----- CRYSTALS,BF Positive Ref: Negative MSU CRYSTALS,BF Present Ref: Negative MSU CRYSTAL EXTRA,BF Present Ref: Negative MSU CRYSTAL INTRA,BF Present Ref: Negative Will inform PCP to initiate treatment for gout. He does have tricompratmental arthritis secondarily. /HIEN Vickers Signed: 11/23/2023 07:59 11/23/2023 ADDENDUM STATUS: COMPLETED For PCP. Aspirated and results listed. Would suggest initiating standard gout protocol for acute and chronic treatment. /HIEN Vickers Signed: 11/23/2023 08:02 Receipt Acknowledged By: * AWAITING SIGNATURE * BOY DELONG DANIEL L [place] [facility]
--- OUTSIDE RECORDS SUMMARY | 2024-02-15 02:52 | XMS_ITS | Encounter Summary ---
Author Name [place] Address [address] [place] [address] Care Team Providers Care Fruit Checker Name Role Phone BOY DELONG Primary Care [...] RX PRESCRIPT ION HEALT H [facility] Mar 07, 2020 [facility] [id number] MARGARETH HONG RRYL PATIENT Selected Encounter This section includes the information on record at [place] for the Encounter. Date/Time Encounter Type Encounter Description Reason Pro vider Source Nov 17, 2023 12:00 AM Outpatient Encounter EVENT (HISTORICAL) IHE Encounter [...] 2024 10:00 AM AMBULATORY - MED[facility] Jan 10, 2024 11:15 AM AM[place]UL[place]ORY [place] NONE [place] [facility] [place] [facility] Jan 10, 2024 11:30 AM AMBULATORY - NONE [place] [facility] [place] [facility] Jan 13, 2024 10:00 AM AMBULATORY - PSYCHIATRY [place] [facility] [place] [facility] Jan 13, 2024 01:00 PM AMBULATORY - MEDICINE [place] [facility] [place] [facility] Feb 03, 2024 03:30 PM AMBULATORY - MEDICINE [facility] Feb 17, 2024 11:00 AM AMBULATORY - REHAB [facility]IC[facility] Mar 01, 2024 11:00 AM AMBULATORY - MEDICINE [place] [facility] [place] [facility] Apr 06, 2024 10:00 AM AMBULATORY - PSYCHIATRY [place] [facility] [place] [facility] May 14, 2024 10:30 AM AMBULATORY - MEDICINE [place] [facility] [place] [facility] Lab Results: +/- 30 days of the encounter This section includes the Chemistry and Hematology Lab Results on record with [place] for the patient. Radiology Reports and Pathology Reports are provided separately, in subsequent sections. Lab Results This section contains the Chemistry/Hematology Results that were resulted 30 days before or 30 daysafter the date of the Encounter. Date/Time Source Result Type Result - Unit Interpretation Reference Range Comment Nov 17, 2023 08:30 [facility] CULTURE,BODY FLUID PANEL(C.D.H) Specimen Type: SYNOVIAL FLUID Comment: Refer to CPRS: [place] Imag. Display for Lab Results Ordering Provider: REESE MCFADDEN Report Released Date/Time: Nov 17, 2023 09:15 AM Reporting Lab: [place] [facility] [place] [facility] [address] [facility] [address] Performing Lab: [place] [facility] [place] [facility] [address] [facility] [address] GRAM STAIN(cdh) comment ANAEROBIC CULTURE(cdh) comment CULTURE,BODY FLUID(cdh) comment Nov 17, 2023 08:30 AM [facility] [place] [facility] GLUCOSE, SYNOVIAL (q) Specimen Type: SYNOVIAL FLUID Comment: Synovial fluid glucose values are equivalent to plasma values if obtained from a fasting patient. The difference between the plasma glucose and synovial fluid glucose value should be <10 mg/dL. Test Performed by [employer], [employer] [facility], [address] [place], [place] Rajesh Doss M.D., Ph.D., Director of Laboratories , CLIA [id number] TEST PERFORMED AT: , Ordering Provider: REESE MCFADDEN Report Released Date/Time: Nov 17, 2023 09:15 AM Reporting Lab: [facility] [address] [facility] [address] Performing Lab: [facility] [address] [address] GLUCOSE, SYNOVIAL (q) 145 mg/dL Nov 17, 2023 08:30 AM [facility] SYNOVIAL FLUID CRYSTALS PANEL Specimen Type: SYNOVIAL FLUID No comment entered. Ordering Provider: REESE MCFADDEN Report Released Date/Time: Nov 17, 2023 09:24 AM Reporting Lab: [facility] [address] [facility] [address] Performing Lab: [facility] [address] [facility] [address] CRYSTALS,BF Positive Negative MSU CRYSTALS,BF Present Negative MSU CRYSTAL EXTRA,BF Present Negative MSU CRYSTAL INTRA,BF Present Negative Nov 17, 2023 08:30 AM [facility] CELL COUNT (SYNOVIAL FLUID) Specimen Type: SYNOVIAL FLUID Comment: *CRYSTALS Not Performed: Nov 17, 2023@09:25 by [id number] *BROKE BEATER Reason: see [email or web address] [id number] for results Ordering Provider: REESE MCFADDEN Report Released Date/Time: Nov 17, 2023 09:15 AM Reporting Lab: [facility] [address] [facility] [address] Performing Lab: [address] [address] WBC 350 RBC <3000 COLOR Y VOLUME 2ml mL APPEARANCE C NUCLEATED CELL # comment 0-200 Encounter Notes: All associated encounter notes This section contains the clinical notes associated to the Encounter. Date/Time Encounter Note(s) Provider Source Nov 17, 2023 12:00 AM NONVA DIAGNOSTIC S [place] REPORT: LOCAL TITLE: NON-VA DIAGNOSTICS STANDARD TITLE: NONVA DIAGNOSTIC STUDY REPORT DATE OF NOTE: NOV 17, 2023 ENTRY DATE: NOV 21, 2023@13:51:13 AUTHOR: CLAY REED MA COSIGNER: URGENCY: STATUS: COMPLETED VistA Imaging - Scanned Document SCANNED DOCUMENT SIGNATURE NOT REQUIRED Electronically Filed: 11/21/2023 by: CLAY REED OXYGRAPH OPERATOR CLAY REED [place] [facility]
--- OUTSIDE RECORDS SUMMARY | 2024-02-15 02:54 | XMS_ITS ---
Author Name [place] Address [address] [place] [address] Care Team Providers Care Dust Collector Ore Crushing Name Role Phone BOY DELONG Primary Care [...] OPTUM RX PRESCRIPT ION HEALT H [facility] Mar 07, 2020 [facility] [id number] MARGARETH HONG RRYL PATIENT Selected Encounter This section includes the information on record at [place] for the Encounter. Date/Time Encounter Type Encounter Description Reason Provider Source Dec 07, 2023 10:31 AM HC PRO PHONE CALL 5-10 MIN TELEPHONE HCMI ICD-10-CM Z59.819 Housing instability, housed unspecified AME HESS Rosibel Encounter Template Text not used by [place] Assessments - Encounter Diagnoses This section includes the primary and secondary diagnoses documented for the Encounter. Date/Time Primary/Secondary Diagnosis Diagnosis Name Provider Source Dec 07, 2023 10:31 AM PRIMARY Housing instability, housed unspecified [facility] Plan of Treatment: Future Appointments (+ 6 months) and Future Tests (+/- 45 days) The Plan of Treatment section includes future care activities for the patient from all [place] [facility]. This section includes future appointments and future orders which are active, pending or scheduled. Future Appointments This section includes appointments that were scheduled to occur 6 months from the date of the Encounter, up to a maximum of 20 appointments. The data comes from all [facility]. Appointment Date/Time Appointment Type Appointme nt Facility Name Jan 06, 2024 10:00 AM AMBULATORY - MEDICINE [facility] Jan 10, 2024 11:15 AM AMBULATORY - NONE [place] [facility] [place] [facility] Jan 10, 2024 11:30 AM AMBULATORY - NONE [place] [facility] [place] [facility] Jan 13, 2024 10:00 AM AMBULATORY - PSYCHIATRY [place] [facility] [place] [facility] Jan 13, 2024 01:00 PM AMBULATORY - MEDICINE [place] [facility] Feb 03, 2024 03:30 PM AMBULATORY - MEDICINE [facility] Feb 17, 2024 11:00 AM AMBULATORY - REHAB MEDICIN [facility] Mar 01, 2024 11:00 AM AMBULATORY - MEDICINE [place] [facility] Apr 06, 2024 10:00 AM AMBULATORY - PSYCHIATRY [place] [facility] [place] [facility] May 14, 2024 10:30 AM AMBULATORY - MEDICINE [place] [facility] Active, Pending, and Scheduled Orders This section includes a listing of several types of active, pending, and scheduled orders, including clinic medications orders, diagnostic test orders, procedure orders and consult orders; where the start date of the order is 45 days before the date of the Encounter or 45 days after the date of theEncounter. The data comes from all [facility]. Test Date/Time Test Type Test Details Facility Name Jan 13, 2024 01:37 PM Consult Order [facility] Cons Timing Machine Operator's Choice [place] [facility] [facility] Lab Results: +/- 30 [...] Range Comment Jan 06, 2024 10:11 AM [place] MICROALBUMIN CREATININE RATIO PANEL Spe cimen Type: URINE No comment entered. Ordering Provider: BOY DELONG Report Released Date/Time: Nov 23, 2023 08:33 AM Reporting Lab: [address] [address] Performing Lab: [address] [address] MICROALBUMIN/C REATININE RATIO 13.8 mg/g 0-29.9 MICROALBUMIN,Q UANTITATIVE 2.5 mg/dL RR UNAVAIL CREATININE URINE 180.82 mg/dL Jan 06, 2024 10:11 AM [place] URINALYSIS Specimen Type: URINE Comment: If Glucose = >500 and Ketones are positive, please alert the Physician. Ordering Provider: BOY DELONG Report Released Date/Time: Nov 23, 2023 08:33 AM Reporting Lab: [address] [address] Performing Lab: [address] [address] UA COLOR Light-Yellow Yellow UA APPEARANCE Clear Clear UA GLUCOSE Normal mg/dL Negative UA KETONES NEGATIVE mg/dL Negative UA BLOOD NEGATIVE mg/dL Negative UA PROTEIN 10 mg/dL Negative UA NITRITE NEGATIVE mg/dL Negative UA BILIRUBIN NEGATIVE mg/dL Negative UA SPECIFIC GRAVITY 1.024 H 1.016-1.02 2 UA pH 5.5 5.0-9.0 UA UROBILINOGEN Normal mg/dL <2.0 UA LEUKOCYTE NEGATIVE Negative Jan 06, 2024 09:55 AM [place] URIC ACID Specimen Type: SERUM No comment entered. Ordering Provider: BOY DELONG Report Released Date/Time: Nov 23, 2023 08:33 AM Reporting Lab: [address] [address] Performing Lab: [address] [address] URIC ACID 5.7 mg/dL 3.5-7.2 Jan 06, 2024 09:55 AM [place] CALCIUM Specimen Type: SERUM No comment entered. Ordering Provider: BOY DELONG Report Released Date/Time: Nov 23, 2023 08:33 AM Reporting Lab: [facility] [address] [facility] [address] Performing Lab: [facility] [address] [facility] [address] CALCIUM 9.0 mg/dL 8.5-10.2 Jan 06, 2024 09:55 AM [place] BASIC METABOLIC PANEL (fasting) Specime n Type: SERUM No comment entered. Ordering Provider: BOY DELONG Report Released Date/Time: Nov 23, 2023 08:33 AM Reporting Lab: [facility] [address] [facility] [address] Performing Lab: [facility] [address] [facility] [address] UREA NITROGEN 18 mg/dL 7-25 GLUCOSE 108 mg/dL H 65-100 SODIUM 140 mmol/L 135-145 POTASSIUM 3.9 mmol/L 3.5-5.0 CHLORIDE 111 mmol/L H 100-110 CO2 21 meq/L 20-30 CREATININE, Serum 1.13 mg/dL 0.50-1.40 eGFR(CKD-EPI 2020) 74 mL/min >60 Jan 06, 2024 09:55 AM [place] LIPID PANEL FASTING Specimen Type: SERUM No comment entered. Ordering Provider: BOY EDLONG Report Released Date/Time: Nov 23, 2023 08:33 AM Reporting Lab: [facility] [address] [facility] [address] Performing Lab: [facility] [address] [facility] [address] CHOLESTEROL 168 mg/dL TRIGLYCERIDE 70 mg/dL 0-150 LDL calculated 115 mg/dL 0-129 CHOL/HDL 4.3 HDL CHOLESTEROL 39 mg/dL L 40-60 Jan 06, 2024 09:55 AM [place] LIVER FUNCTION Specimen Type: SERUM No comment entered. Ordering Provider: BOY EDLONG Report Released Date/Time: Nov 23, 2023 08:33 AM Reporting Lab: [facility] [address] [facility] [address] Performing Lab: [facility] [address] [address] PROTEIN,TOTAL 6.8 g/dL 6.0-8.3 ALBUMIN 3.9 g/dL 3.5-5.0 ALKALINE PHOSPHATASE 66 U/L 40-150 AST 21 U/L 5-34 ALT 34 U/L BILIRUBIN, TOTAL 0.4 mg/dL 0.2-1.2 Jan 06, 2024 09:55 AM [place] VITAMIN D (25-OH) Specimen Type: SERUM No comment entered. Ordering Provider: BOY DELONG Report Released Date/Time: Nov 23, 2023 08:33 AM Reporting Lab: [place] [facility] [address] [facility] [address] Performing Lab: [facility] [address] VITAMIN D (25-OH) 23 ng/mL 20-50 Jan 06, 2024 09:55 AM [place] FERRITIN Specimen Type: SERUM No comment entered. Ordering Provider: BOY DELONG Report Released Date/Time: Nov 23, 2023 08:33 AM Reporting Lab: [facility] [place] [facility] [address] [facility] [address] Performing Lab: [facility] [address] [address] FERRITIN 214 ng/mL 20-300 Jan 06, 2024 09:55 AM [place] VITAMIN B12 Specimen Type: SERUM No comment entered. Ordering Provider: BOY DELONG Report Released Date/Time: Nov 23, 2023 08:33 AM Reporting Lab: [facility] TR[facility] [address] [facility] [address] Performing Lab: [facility] TRN [facility] [address] [address] VITAMIN B12 636 pg/mL 200-900 Jan 06, 2024 09:55 AM [place] PSA Specimen Type: SERUM No comment entered. Ordering Provider: BOY DELONG Report Released Date/Time: Nov 23, 2023 08:33 AM Reporting Lab: [place] [facility] [address] [facility] [address] Performing Lab: [facility]TRN [facility] [address] [address] PSA 1.09 ng/mL 0.00-4.00 Jan 06, 2024 09:55 AM [place] CBC AND DIFF (AUTO) Specimen Type: BLOOD No comment entered. Ordering Provider: BOY DELONG Report Released Date/Time: Nov 23, 2023 08:33 AM Reporting Lab: [facility] [address] [facility] [address] Performing Lab: [facility] [address] [facility] [address] WBC 3.76 10*3/uL L 4.50-11.00 RBC 5.35 [...] 0.0 0.0-0.0 NRBC, ABS 0.00 10*3/uL 0.00-0.00 Jan 06, 2024 09:55 AM [place] HEMOGLOBIN A1C PANEL Specimen Type: BLOOD Comment: [...] Nov 23, 2023 08:33 AM Reporting Lab: [address] [address] Performing Lab: [address] [address] HEMOGLOBIN A1C 5.5 4.0-5.6 Jan 06, 2024 09:55 AM [place] TSH Specimen Type: SERUM No comment entered. Ordering Provider: BOY DELONG Report Released Date/Time: Nov 23, 2023 08:33 AM Reporting Lab: [address] [address] Performing Lab: [address] [address] TSH 3.01 u[IU]/mL 0.35-5.00 Nov 17, 2023 08:30 AM [facility] CULTURE,BODY FLUID PANEL(C.D.H) Specimen Type: SYNOVIAL FLUID Comment: Refer to CPRS: [place] Imag. Display for Lab Results Ordering Provider: REESE MCFADDEN Report Released Date/Time: Nov 17, 2023 09:15 AM Reporting Lab: [address] [address] Performing Lab: [address] [address] GRAM STAIN(cdh) comment ANAEROBIC CULTURE(cdh) comment CULTURE,BODY FLUID(cdh) comment Nov 17, 2023 08:30 AM [facility] GLUCOSE, SYNOVIAL (q) Specimen Type: SYNOVIAL FLUID Comment: Synovial fluid glucose values are equivalent to plasma values if obtained from a fasting patient. The difference between the plasma glucose and synovial fluid glucose value should be <10 mg/dL. Test Performed by [employer], [employer] [facility], [address] [place] [address] Rajesh Doss M.D., Ph.D., Director of Laboratories , CLIA [id number] TEST PERFORMED AT: , Ordering Provider: REESE MCFADDEN Report Released Date/Time: Nov 17, 2023 09:15 AM Reporting Lab: [facility] [address] [facility] [address] Performing Lab: [facility] [address] [address] GLUCOSE, SYNOVIAL (q) 145 mg/dL Nov 17, 2023 08:30 AM [facility] SYNOVIAL FLUID CRYSTALS PANEL Specimen Type: SYNOVIAL FLUID No comment entered. Ordering Provider: REESE MCFADDEN Report Released Date/Time: Nov 17, 2023 09:24 AM Reporting Lab: [facility] [address] [facility] [address] Performing Lab: [facility] [address] [facility] [address] CRYSTALS,BF Positive Negative MSU CRYSTALS,BF Present Negative MSU CRYSTAL EXTRA,BF Present Negative MSU CRYSTAL INTRA,BF Present Negative Nov 17, 2023 08:30 AM [facility] CELL COUNT (SYNOVIAL FLUID) Specimen Type: SYNOVIAL FLUID Comment: *CRYSTALS Not Performed: Nov 17, 2023@09:25 by [id number] *MORTGAGE CLERK Reason: see wrled [id number] for results Ordering Provider: REESE MCFADDEN Report Released Date/Time: Nov 17, 2023 09:15 AM Reporting Lab: [facility] [address] [facility] [address] Performing Lab: [facility] [address] [facility] [address] WBC 350 RBC <3000 COLOR Y VOLUME 2ml mL APPEARANCE C NUCLEATED CELL # comment 0-200 Encounter Notes: All associated encounter notes This section contains the clinical notes associated to the Encounter. Date/Time Encounter Note(s) Provider Source Dec 07, 2023 10:31 AM TELEPHONE ENCOUNTE R NOTE: LOCAL TITLE: HOMELESS TELEPHONE CONTACT STANDARD TITLE: TELEPHONE ENCOUNTER NOTE DATE OF NOTE: DEC 07, 2023@10:31 ENTRY DATE: DEC 07, 2023@10:31:57 AUTHOR: AME HESS EXP COSIGNER: URGENCY: STATUS: COMPLETED HOMELESS TELEPHONE CONTACT Duration: 7 mins Reason for Contact: Outreach Diagnoses: Homelessness, Housing &/or Economic Circumstances NOS Spoke w/ Vet. Vet said that he had missed appt. He understood that he was not eligible for VASH. I said he'd have to verify with Roderick if he was eligible for SSVF. I told him about CHAMP and what would be the benefit for applying for such, even if he may be over 80% GAMI currently. He had asked if it was worth trying to apply for subsidized housing; I told him I would send him some information on housing search materials, particular property managers where he could receive applications from and find out about availability, and places to try for one time only financial assistance w/ moving expenses, first and last and security, etc. He understood, acknowledged and thanked me. No further social work intervention atthis time by this signwriter. This signwriter will remain available to assist Vet if indicated. /ivone/ Ame Hess [facility] [place] Signed: 12/07/2023 10:36 AME HESS [place] [facility]
--- OUTSIDE RECORDS SUMMARY | 2024-02-15 02:54 | XMS_ITS ---
Author Name [facility] Address [address] [place] [address] Care Team Providers Care Vice President Of Development Name Role Phone BOY DELONG Primary Care [...] RX PRESCRIPT ION HEALT H [facility] Mar 07, 2020 [place] [id number] MARGARETH HONG RRYL PATIENT Selected Encounter This section includes the information on record at [facility] for the Encounter. Date/Time Encounter Type Encounter Description Reason Pro vider Source Dec 02, 2023 02:24 PM Outpatient Encounter [facility] Encounter Template Text not used by [place] Plan of Treatment: Future Appointments (+ 6 months) and Future Tests (+/- 45 days) The Plan of Treatment section includes future care activities for the patient from all [facility] treatmentfacilities. This section includes future appointments and future orders which are active, pending or scheduled. Future Appointments This section includes appointments that were scheduled to occur 6 months from the date of the Encounter, up to a maximum of 20 appointments. The data comes from all [facility] treatment facilities. Appointment Date/Time Appointment Type Appointme nt Facility Name Jan 06, 2024 10:00 AM AMBULATORY - MEDICINE [facility] Jan 10, 2024 11:15 AM AMBULATORY - NONE [facility] [place] [facility] Jan 10, 2024 11:30 AM AMBULATORY - NONE [facility] [place] [facility] Jan 13, 2024 10:00 AM AMBULATORY - PSYCHIATRY [facility] [place] [facility] Jan 13, 2024 01:00 PM AMBULATORY - MEDICINE [facility] [place] [facility] Feb 03, 2024 03:30 PM [facility]BULATORY - MEDICINE [facility] Feb 17, 2024 11:00 AM AMBULATORY - REHAB MEDICIN [facility] Mar 01, 2024 11:00 AM AMBULATORY - MEDICINE [facility] [place] [facility] Apr 06, 2024 10:00 AM AMBULATORY - PSYCHIATRY [facility] [place] [facility] May 14, 2024 10:30 AM [facility] Active, Pending, and Scheduled Orders This section includes a listing of several types of active, pending, and scheduled orders, including clinic medications orders, diagnostic test orders, procedure orders and consult orders; where the start date of the order is 45 days before the date of the Encounter or 45 days after the date of theEncounter. The data comes from all [facility] treatment facilities. Test Date/Time Test Type Test Details Facility Name Jan 13, 2024 01:37 PM Consult Order [facility] Cons [facility] Lab Results: +/- 30 days of the encounter This section includes the Chemistry and Hematology Lab Results on record with [place] for the patient. Radiology Reports and Pathology Reports are provided separately, in subsequent sections. Lab Results This section contains the Chemistry/Hematology Results that were resulted 30 days before or 30 daysafter the date of the Encounter. Date/Time Source Result Type Result - Unit Interpretation Reference Range Comment Nov 17, 2023 08:30 AM [facility] CULTURE,BODY FLUID PANEL(C.D.H) Specimen Type: SYNOVIAL FLUID Comment: Refer to CPRS: [place] Imag. Display for Lab Results Ordering Provider: REESE MCFADDEN Report Released Date/Time: Nov 17, 2023 09:15 AM Reporting Lab: [facility] [address] [facility] [phone] Performing Lab: [facility] [address] [facility] [address] GRAM STAIN(cdh) comment ANAEROBIC CULTURE(cdh) comment CULTURE,BODY FLUID(cdh) comment Nov 17, 2023 08:30 AM [facility] GLUCOSE, SYNOVIAL (q) Specimen Type: SYNOVIAL FLUID Comment: Synovial fluid glucose values are equivalent to plasma values if obtained from a fasting patient. The difference between the plasma glucose and synovial fluid glucose value should be <10 mg/dL. Test Performed by [facility], [facility], [address] [place] [address] Rajesh Doss M.D., Ph.D., Director of Laboratories , CLIA [id number] TEST PERFORMED AT: , Ordering Provider: REESE MCFADDEN Report Released Date/Time: Nov 17, 2023 09:15 AM Reporting Lab: [facility] [address] [facility] [address] Performing Lab: [facility] [address] [address] GLUCOSE, SYNOVIAL (q) 145 mg/dL Nov 17, 2023 08:30 AM [facility] SYNOVIAL FLUID CRYSTALS PANEL Specimen Type: SYNOVIAL FLUID No comment entered. Ordering Provider: REESE MCFADDEN Report Released Date/Time: Nov 17, 2023 09:24 AM Reporting Lab: [facility] [address] [facility] [phone] Performing Lab: [facility] [address] [facility] [address] CRYSTALS,BF Positive Negative MSU CRYSTALS,BF Present Negative MSU CRYSTAL EXTRA,BF Present Negative MSU CRYSTAL INTRA,BF Present Negative Nov 17, 2023 08:30 AM [facility] CELL COUNT (SYNOVIAL FLUID) Specimen Type: SYNOVIAL FLUID Comment: *CRYSTALS Not Performed: Nov 17, 2023@09:25 by [id number] *DIGITAL FORENSICS EXAMINER Reason: see wrled [id number] for results Ordering Provider: REESE MCFADDEN Report Released Date/Time: Nov 17, 2023 09:15 AM Reporting Lab: [facility] [address] [facility] [address] Performing Lab: [facility] [address] [facility] [phone] WBC 350 RBC <3000 COLOR Y VOLUME 2ml mL APPEARANCE C NUCLEATED CELL # comment 0-200 Encounter Notes: All associated encounter notes This section contains the clinical notes associated to the Encounter. Date/Time Encounter Note(s) Provider Source Dec 02, 2023 09:24 AM HOMELESS PROGRAM N OTE: LOCAL TITLE: HOMELESS FOLLOW-UP OUTPATIENT NOTE STANDARD TITLE: HOMELESS PROGRAM NOTE DATE OF NOTE: DEC 02, 2023@09:24 ENTRY DATE: DEC 06, 2023@09:25:02 AUTHOR: AME HESS EXP COSIGNER: URGENCY: STATUS: COMPLETED HOMELESS FOLLOW UP OUTPATIENT NOTE Vet no showed for appt. This development writer will follow up with Roderick arias [employer]. and remain available to meet w/ him prn. /ivone/ Ame Hess [facility], [facility] Signed: 12/06/2023 09:30 AME HESS [facility]
--- OUTSIDE RECORDS SUMMARY | 2024-02-15 02:55 | XMS_ITS ---
Author Name [facility] [facility] [place] Address [address] [place] [address] Care Team Providers Care Manager Orange Name Role Phone BOY DELONG Primary Care [...] [facility] Mar 07, 2020 [facility] [id number] MARGARETH HONG RRYL PATIENT Selected Encounter This section includes the information on record at [place] for the Encounter. Date/Time Encounter Type Encounter Description Reason Provider Source Jan 03, 2024 11:15 AM HC PRO PHONE CALL 5-10 MIN TELEPHONE HCMI ICD-10-CM Z59.819 Housing instability, housed unspecified [facility] H[facility] [place] Encounter Template Text not used by [place] Assessments - Encounter Diagnoses This section includes the primary and secondary diagnoses documented for the Encounter. Date/Time Primary/Secondary Diagnosis Diagnosis Name Provider Source Jan 03, 2024 11:15 AM PRIMARY Housing instability, housed unspecified [facility] Plan of Treatment: Future Appointments (+ 6 months) and Future Tests (+/- 45 days) The Plan of Treatment section includes future care activities for the patient from all [place] [facility]. This section includes future appointments and future orders which are active, pending or scheduled. Future Appointments This section includes appointments that were scheduled to occur 6 months from the date of the Encounter, up to a maximum of 20 appointments. The data comes from all [facility]. Appointment Date/Time Appointment Type Appointme nt Facility Name Jan 06, 2024 10:00 AM AMBULATORY - MEDICINE [facility] Jan 10, 2024 11:15 AM AMBULATORY - NONE [facility] [place] [facility] Jan 10, 2024 11:30 AM AMBULATORY - NONE [facility] [place] [facility] Jan 13, 2024 10:00 AM AMBULATORY [place]CHIATRY [place] [facility] [place] [facility] Jan 13, 2024 01:00 PM AM[place]UL[place]ORY [place] [facility] [place] [facility] Feb 03, 2024 03:30 PM AMBULATORY - MEDICINE [facility] Feb 17, 2024 11:00 AM AMBULATORY - REHAB MEDICIN [facility] [place] Mar 01, 2024 11:00 AM [place] [facility] [place] [facility] Apr 06, 2024 10:00 AM AMBULATORY [place]IATRY [place] [facility] [place] [facility] May 14, 2024 10:30 AM [place]ORY [place] [facility] [place] [facility] Active, Pending, and Scheduled Orders This section includes a listing of several types of active, pending, and scheduled orders, including clinic medications orders, diagnostic test orders, procedure orders and consult orders; where the start date of the order is 45 days before the date of the Encounter or 45 days after the date of theEncounter. The data comes from all [facility]. Test Date/Time Test Type Test Details Facility Name Jan 13, 2024 01:37 PM Consult Order COMMUNITY CARE-ORTHO SURGICAL Cons [employer] [place] [facility] [place] [facility] Feb 03, 2024 03:52 PM Consult Order PHYSICAL THERAPY/SPOPC OUTPT [facility] [employer] [place] Feb 10, 2024 12:00 AM Laboratory - Chemistry Order RHEUMATOID FACTOR BLOOD (SST-SERUM) [facility] Feb 10, 2024 12:00 AM Laboratory - Chemistry Order MICHA SCREEN/TITER BLOOD (SST-GOLD) SERUM [facility] Feb 10, 2024 12:00 AM Laboratory - Chemistry Order HLA-B27 (QU) BLOOD (SPIGU-YxAhc-VDELB) [facility] Feb 10, 2024 12:00 AM Laboratory - Chemistry Order C REACTIVE PROTEIN HS (WROX) BLOOD (SST-SERUM) [facility] Feb 10, 2024 12:00 AM Laboratory - Chemistry Order SED RATE, AUTOMATED BLOOD (LAV-BLOOD) [facility] Lab Results: +/- 30 days of the encounter This section includes the Chemistry and Hematology Lab Results on record with [place] for the patient. Radiology Reports and Pathology Reports are provided separately, in subsequent sections. Lab Results This section contains the Chemistry/Hematology Results that were resulted 30 days before or 30 daysafter the date of the Encounter. Date/Time Source Result Type Result - Unit Interpretation Reference Range Comment Jan 06, 2024 10:11 AM [place] MICROALBUMIN CREATININE RATIO PANEL Spe cimen Type: URINE No comment entered. Ordering Provider: BOY DELONG Report Released Date/Time: Nov 23, 2023 08:33 AM Reporting Lab: [address] [address] Performing Lab: [address] [address] MICROALBUMIN/C REATININE RATIO 13.8 mg/g 0-29.9 MICROALBUMIN,Q UANTITATIVE 2.5 mg/dL RR UNAVAIL CREATININE URINE 180.82 mg/dL Jan 06, 2024 10:11 AM [place] URINALYSIS Specimen Type: URINE Comment: If Glucose = >500 and Ketones are positive, please alert the Physician. Ordering Provider: BOY DELONG Report Released Date/Time: Nov 23, 2023 08:33 AM Reporting Lab: [facility] [employer] [address] Performing Lab: [address] [address] UA COLOR Light-Yellow Yellow UA APPEARANCE Clear Clear UA GLUCOSE Normal mg/dL Negative UA KETONES NEGATIVE mg/dL Negative UA BLOOD NEGATIVE mg/dL Negative UA PROTEIN 10 mg/dL Negative UA NITRITE NEGATIVE mg/dL Negative UA BILIRUBIN NEGATIVE mg/dL Negative UA SPECIFIC GRAVITY 1.024 H 1.016-1.022 UA pH 5.5 5.0-9.0 UA UROBILINOGEN Normal mg/dL <2.0 UA LEUKOCYTE NEGATIVE Negative Jan 06, 2024 09:55 AM [place] URIC ACID Specimen Type: SERUM No comment entered. Ordering Provider: BOY DELONG Report Released Date/Time: Nov 23, 2023 08:33 AM Reporting Lab: [facility] [address] [address] Performing Lab: [address] [address] URIC ACID 5.7 mg/dL 3.5-7.2 Jan 06, 2024 09:55 AM [place] CALCIUM Specimen Type: SERUM No comment entered. Ordering Provider: BOY DELONG Report Released Date/Time: Nov 23, 2023 08:33 AM Reporting Lab: [address] [address] Performing Lab: [address] [address] CALCIUM 9.0 mg/dL 8.5-10.2 Jan 06, 2024 09:55 AM [place] BASIC METABOLIC PANEL (fasting) Specime n Type: SERUM No comment entered. Ordering Provider: BOY DELONG Report Released Date/Time: Nov 23, 2023 08:33 AM Reporting Lab: [address] [address] Performing Lab: [address] [address] UREA NITROGEN 18 mg/dL 7-25 GLUCOSE 108 mg/dL H 65-100 SODIUM 140 mmol/L 135-145 POTASSIUM 3.9 mmol/L 3.5-5.0 CHLORIDE 111 mmol/L H 100-110 CO2 21 meq/L 20-30 CREATININE, Serum 1.13 mg/dL 0.50-1.40 eGFR(CKD-EPI 2020) 74 mL/min >60 Jan 06, 2024 09:55 AM [place] LIVER FUNCTION Specimen Type: SERUM No comment entered. Ordering Provider: BOY DELONG Report Released Date/Time: Nov 23, 2023 08:33 AM Reporting Lab: [address] [address] Performing Lab: [facility] [address] [address] PROTEIN,TOTAL 6.8 g/dL 6.0-8.3 ALBUMIN 3.9 g/dL 3.5-5.0 ALKALINE PHOSPHATASE 66 U/L 40-150 AST 21 U/L 5-34 ALT 34 U/L BILIRUBIN, TOTAL 0.4 mg/dL 0.2-1.2 Jan 06, 2024 09:55 AM [place] LIPID PANEL FASTING Specimen Type: SERUM No comment entered. Ordering Provider: BOY DELONG Report Released Date/Time: Nov 23, 2023 08:33 AM Reporting Lab: [facility] [address] [address] Performing Lab: [facility] [address] CHOLESTEROL 168 mg/dL TRIGLYCERIDE 70 mg/dL 0-150 LDL calculated 115 mg/dL 0-129 CHOL/HDL 4.3 HDL CHOLESTEROL 39 mg/dL L 40-60 Jan 06, 2024 09:55 AM [place] VITAMIN D (25-OH) Specimen Type: SERUM No comment entered. Ordering Provider: BOY DELONG Report Released Date/Time: Nov 23, 2023 08:33 AM Reporting Lab: [facility] [address] Performing Lab: [facility] [address] VITAMIN D (25-OH) 23 ng/mL 20-50 Jan 06, 2024 09:55 AM [place] FERRITIN Specimen Type: SERUM No comment entered. Ordering Provider: BOY DELONG Report Released Date/Time: Nov 23, 2023 08:33 AM Reporting Lab: [facility] [address] [address] Performing Lab: [facility] [address] FERRITIN 214 ng/mL 20-300 Jan 06, 2024 09:55 AM [place] VITAMIN B12 Specimen Type: SERUM No comment entered. Ordering Provider: BOY DELONG Report Released Date/Time: Nov 23, 2023 08:33 AM Reporting Lab: [facility] [address] [address] Performing Lab: [facility] [address] [address] VITAMIN B12 636 pg/mL 200-900 Jan 06, 2024 09:55 AM [place] CBC AND DIFF (AUTO) Specimen Type: BLOOD No comment entered. Ordering Provider: BOY DELONG Report Released Date/Time: Nov 23, 2023 08:33 AM Reporting Lab: [facility] [address] [address] Performing Lab: [address] [address] WBC 3.76 10*3/uL L 4.50-11.00 RBC 5.35 [...] 10*3/uL 0.00-0.00 Jan 06, 2024 09:55 AM [place] PSA Specimen Type: SERUM No comment entered. Ordering Provider: BOY DELONG Report Released Date/Time: Nov 23, 2023 08:33 AM Reporting Lab: [facility] [address] [address] Performing Lab: [facility] [address] [address] PSA 1.09 ng/mL 0.00-4.00 Jan 06, 2024 09:55 AM [place] HEMOGLOBIN A1C PANEL Specimen Type: BLOOD Comment: [...] Nov 23, 2023 08:33 AM Reporting Lab: [facility] [address] Performing Lab: [facility] [address] [address] HEMOGLOBIN A1C 5.5 4.0-5.6 Jan 06, 2024 09:55 AM [place] TSH Specimen Type: SERUM No comment entered. Ordering Provider: BOY DELONG Report Released Date/Time: Nov 23, 2023 08:33 AM Reporting Lab: [facility] [address] Performing Lab: [facility] [address] TSH 3.01 u[IU]/mL 0.35-5.00 Radiology Reports: +/- 30 days of the [...] the Encounter. The data comes from all [facility]. Date/Time Radiology Report Provider Source Jan 10, 2024 11:27 AM KNEE 3 VIEWS (LEFT): LUPILLO HONG [id number] -1960 M Ex Date: JAN 10, 2024@11:27 Req Phys: BOY DELONG Loc: CWM/SO/PACT 3 WH (Req'g Loc) Img Loc: [facility]/BUILDING 1 Service: [facility] [place] [facility] [place] [address] (Case [id number] COMPLETE) KNEE 3 VIEWS (LEFT) (RAD Detailed) CPT:07196 Reason for Study: left knee pain Clinical History: any OA or joint erosions? did have gout L knee Report Status: Verified Date Reported: JAN 10, 2024 Date Verified: JAN 10, 2024 Driver Recruiter E-Sig: Report: KNEE 3 VIEWS (LEFT) COMPARISON: [...] the right knee demonstrates severe medial and tkan-km-drjkjdxl lateral tibiofemoral compartment joint degeneration, similar to [...] to prior. READING PHYSICIAN: Karon Blount M.D. -[phone] 01/10/2024 11:58 EST [facility] National [employer] Program [phone] (For Medical Practitioner Use Only) Attention Patients / Veterans: If you have questions or concerns about these test results, please contact your ordering provider or primary care team. Primary Diagnostic Code: NO ALERT REQUIRED Primary Interpreting Staff: RADIOLOGY,OUTSIDE SERVICE, Staff Physician / RADIOLOGY,OUTSIDE SERVICE [facility] Jan 10, 2024 11:[address] THORAX W/O CONT: LUPILLO HONG [id number] -1960 M Exm Date: JAN 10, 2024@11:15 Req Phys: BOY DELONG [place] Loc: CWM/SO/PACT 3 WH (Req'g Loc) Img Loc: [facility]/CT Service: [place] [address] (Case 84 COMPLETE) CT THORAX W/O CONT (CT Detailed) CPT:54459 Reason for Study: chest tightness Clinical History: post nasal drip coughing echo and ekg of heart neg for cardiac pathology back in may 2023 any signs interstitial lung disease? Report Status: Verified Date Reported: JAN 10, 2024 Date Verified: JAN 10, 2024 Driver Recruiter E-Sig: Report: CT OF THE CHEST WITHOUT IV CONTRAST INDICATION: Chest tightness, post nasal drip, coughing. Assess for signs of interstitial lung disease. TECHNIQUE: Volumetric CT acquisition through the chest, with axial, coronal and sagittal reformats, was performed at the local [place] facility. 1194 images were received by the [place] National Teleradiology Program (NTP) for interpretation. RADIATION [...] as detailed above. READING PHYSICIAN: Boy Sun -[phone] 01/10/2024 17:01 [facility] [employer]iology Program [phone] (For Medical Practitioner Use Only) Attention Patients / Veterans: If you have questions or concerns about these test results, please contact your ordering provider or primary care team. Primary Diagnostic Code: SIGNIFICANT ABNORMALITY, ATTN NEEDED Primary Interpreting Staff: RADIOLOGY,OUTSIDE SERVICE, Staff Physician / RADIOLOGY,OUTSIDE SERVICE [facility] Jan 10, 2024 11:[address] MAXILLOFACIAL W/O CONT: LUPILLO HONG [id number] -1960 M Exm Date: JAN 10, 2024@11:15 Req Phys: BOY DELONG Loc: CWM/SO/PACT 3 WH (Req'g Loc) Img Loc: [place]/CT Service: [place] [address] (Case [id number] COMPLETE) CT MAXILLOFACIAL W/O CONT (CT Detailed) CPT:27311 Reason for Study: post nasal drip Clinical History: always cleasring thraot Report Status: Verified Date Reported: JAN 10, 2024 Date Verified: JAN 10, 2024 Driver Recruiter E-Sig: Report: MAXILLOFACIAL CT WITHOUT IV CONTRAST/CT OF THE PARANASAL SINUSES WITHOUT IV CONTRAST: INDICATION: Post nasal drip. Patient reportedly always clearing throat. TECHNIQUE: Volumetric CT acquisition through the maxillofacial structures/paranasal sinuses, with axial, coronal and sagittal reformats, was performed at the local [place] facility. 159 images were received by the [place] National Teleradiology Program (NTP) for interpretation. RADIATION [...] commentary as above. READING PHYSICIAN: Boy Sun -[phone] 01/10/2024 16:06 EST [facility] National Teleradiology Program [phone] (For Medical Practitioner Use Only) Attention Patients / Veterans: If you have questions or concerns about these test results, please contact your ordering provider or primary care team. Primary Diagnostic Code: NO ALERT REQUIRED Primary Interpreting Staff: RADIOLOGY,OUTSIDE SERVICE, Staff Physician / RADIOLOGY,OUTSIDE SERVICE [facility] [facility] Encounter Notes: All associated encounter notes This section contains the clinical notes associated to the Encounter. Date/Time Encounter Note(s) Provider Source Jan 03, 2024 11:15 AM TELEPHONE ENCOUNTE R NOTE: LOCAL TITLE: HOMELESS TELEPHONE CONTACT STANDARD TITLE: TELEPHONE ENCOUNTER NOTE DATE OF NOTE: JAN 03, 2024@11:15 ENTRY DATE: JAN 03, 2024@11:15:09 AUTHOR: AME HESS EXP COSIGNER: URGENCY: STATUS: COMPLETED HOMELESS TELEPHONE CONTACT Patient identification verifiers used: last 4 of SSN Duration: 10 mins Reason for Contact: Outreach Diagnoses: Homelessness, Housing &/or Economic Circumstances NOS Spoke w/ Roderick Hernandez of [employer] [facility] last week. [employer] [facility] was able to cover all of Elijah's rental arrears to bring Vet back up to speed and squared w/ landlord. Roderick wanted to notify this public relations writer of this occurrence. Thanked Roderick for info. I was in a dark hole...it's not going to happen again... Spoke w/ Elijah to review; informed Vet that if there was anything further he needed from the [facility] as far as health care to address anything like mental health symptoms or substance use patterns that may contribute to difficulties with maintaining housing, to please not hesitate to contact this public relations writer; this public relations writer shared that with Vet already being involved with care through Dr. Bull that this was positive and that she may also be a resource for getting involved w/ other types of health care at [place]. Offered Vet information on community resources that might have options for tenancy skills and/or money management classes. Marvat declined at this point saying that there was just a lack of monies to draw from to get out of rental arrears and to pay on full amnt of rent. Reminded Vet that this had not been the first time, he said, of this situation occurring where he got behind on rent, but that he can reach out if he's interested in anything further and that if it should happen again that he gets an eviction notice. Vet and this public relations writer discussed [employer]: how it is beneficial and how it operates. Vet said that he's going to continue to monitor his [employer] application in the event that he qualifies for subsidies [facility] authorities. plan: no further social work intervention from this public relations writer at this time. /ivone/ Ame Hess, [facility], [facility] Signed: 01/03/2024 11:20 Receipt Acknowledged By: 01/03/2024 21:50 /es/ SONNY NAYAK,[facility] HIM CLERK [facility]
--- OUTSIDE RECORDS SUMMARY | 2024-02-15 02:55 | XMS_ITS | Encounter Summary ---
Author Name [facility] [place] Organization [facility] [place] Address [address] [place] [address] Care Team Providers Care Stitch Bonding Machine Tender Helper Name Role Phone BOY DELONG Primary Care [...] RX PRESCRIPT ION HEALT H [facility] Mar 07, 2020 [facility] [id number] MARGARETH HONG RRYL PATIENT Selected Encounter This section includes the information on record at [place] for the Encounter. Date/Time Encounter Type Encounter Description Reason Provider Source Jan 05, 2024 02:10 PM Outpatient Encounter PM&RS PHYSICIAN SARITA GREWAL Encounter Template Text not used by MS [...] 2024 10:00 AM AMBULATORY - MEDICINE [facility] Jan 10, 2024 11:15 AM AMBULATORY - NONE [facility] [place] [facility] Jan 10, 2024 11:30 AM AMBULATORY - NONE [facility] [place] [facility] Jan 13, 2024 10:00 AM AMBULATORY - PSYCHIATRY [facility] [place] [facility] Jan 13, 2024 01:00 PM AMBULATORY - MEDICINE [facility] [place] [facility] Feb 03, 2024 03:30 PM AM[facility]ATORY - MEDICINE [facility] Feb 17, 2024 11:00 AM AMBULATORY - REHAB MEDICIN E [facility] Mar 01, 2024 11:00 AM AMBULATORY - MEDICINE [facility] [place] [facility] Apr 06, 2024 10:00 AM AMBULATORY - PSYCHIATRY [facility] [place] [facility] May 14, 2024 10:30 AM AMBULATORY - MEDICINE [facility] [place] [facility] Active, Pending, and Scheduled Orders This section includes a listing of several types of active, pending, and scheduled orders, including clinic medications orders, diagnostic test orders, procedure orders and consult orders; where the start date of the order is 45 days before the date of the Encounter or 45 days after the date of theEncounter. The data comes from all [place] treatment facilities. Test Date/Time Test Type Test Details Facility Name Jan 13, 2024 01:37 PM Consult Order COMMUNITY CARE-ORTHO SURGICAL Cons Coagulating Bath Operator's Choice [facility] [place] [facility] Feb 03, 2024 03:52 PM Consult Order PHYSICAL THERAPY/SPOPC OUTPT Cons Coagulating Bath Operator's Choice [facility] Feb 10, 2024 12:00 AM Laboratory - Chemistry Order RHEUMATOID FACTOR BLOOD (SST-SERUM) [facility] Feb 10, 2024 12:00 AM Laboratory - Chemistry Order MICHA SCREEN/TITER BLOOD (SST-GOLD) SERUM [facility] Feb 10, 2024 12:00 AM Laboratory - Chemistry Order HLA-B27 (QU) BLOOD (EQICE-EuRcq-FTEGV) [facility] Feb 10, 2024 12:00 AM Laboratory - Chemistry Order C REACTIVE PROTEIN HS (WROX) BLOOD (SST-SERUM) [facility] Feb 10, 2024 12:00 AM Laboratory - Chemistry Order SED RATE, AUTOMATED BLOOD (LAV-BLOOD) [facility] Lab Results: +/- 30 days of the encounter This section includes the Chemistry and Hematology Lab Results on record with [place] for the patient. Radiology Reports and Pathology Reports are provided separately, in subsequent sections. Lab Results This section contains the Chemistry/Hematology Results that were resulted 30 days before or 30 daysafter the date of the Encounter. Date/Time Source Result Type Result - Unit Interpretation Reference Range Comment Jan 06, 2024 10:11 AM [facility] MICROALBUMIN CREATININE RATIO PANEL Spe cimen Type: URINE No comment entered. Ordering Provider: BOY DELONG Report Released Date/Time: Nov 23, 2023 08:33 AM Reporting Lab: [address] [address] Performing Lab: [address] [address] MICROALBUMIN/C REATININE RATIO 13.8 mg/g 0-29.9 MICROALBUMIN,Q UANTITATIVE 2.5 mg/dL RR UNAVAIL CREATININE URINE 180.82 mg/dL Jan 06, 2024 10:11 AM [facility] URINALYSIS Specimen Type: URINE Comment: If Glucose = >500 and Ketones are positive, please alert the Physician. Ordering Provider: BOY DELONG Report Released Date/Time: Nov 23, 2023 08:33 AM Reporting Lab: [address] [address] Performing Lab: [address] [address] UA COLOR Light-Yellow Yellow UA APPEARANCE Clear Clear UA GLUCOSE Normal mg/dL Negative UA KETONES NEGATIVE mg/dL Negative UA BLOOD NEGATIVE mg/dL Negative UA PROTEIN 10 mg/dL Negative UA NITRITE NEGATIVE mg/dL Negative UA BILIRUBIN NEGATIVE mg/dL Negative UA SPECIFIC GRAVITY 1.024 H 1.016-1.022 UA pH 5.5 5.0-9.0 UA UROBILINOGEN Normal mg/dL <2.0 UA LEUKOCYTE NEGATIVE Negative Jan 06, 2024 09:55 AM [facility] URIC ACID Specimen Type: SERUM No comment entered. Ordering Provider: BOY DELONG Report Released Date/Time: Nov 23, 2023 08:33 AM Reporting Lab: [address] [address] Performing Lab: [facility] [address] [facility] [address] URIC ACID 5.7 mg/dL 3.5-7.2 Jan 06, 2024 09:55 AM [facility] CALCIUM Specimen Type: SERUM No comment entered. Ordering Provider: BOY DELONG Report Released Date/Time: Nov 23, 2023 08:33 AM Reporting Lab: [facility] [address] [facility] [address] Performing Lab: [facility] [address] [address] CALCIUM 9.0 mg/dL 8.5-10.2 Jan 06, 2024 09:55 AM [facility] BASIC METABOLIC PANEL (fasting) Specime n Type: SERUM No comment entered. Ordering Provider: BOY DELONG Report Released Date/Time: Nov 23, 2023 08:33 AM Reporting Lab: [facility] [address] [address] Performing Lab: [facility] [address] UREA NITROGEN 18 mg/dL 7-25 GLUCOSE 108 mg/dL H 65-100 SODIUM 140 mmol/L 135-145 POTASSIUM 3.9 mmol/L 3.5-5.0 CHLORIDE 111 mmol/L H 100-110 CO2 21 meq/L 20-30 CREATININE, Serum 1.13 mg/dL 0.50-1.40 eGFR(CKD-EPI 2020) 74 mL/min >60 Jan 06, 2024 09:55 AM [facility] LIVER FUNCTION Specimen Type: SERUM No comment entered. Ordering Provider: BOY DELONG Report Released Date/Time: Nov 23, 2023 08:33 AM Reporting Lab: [facility] [address] [address] Performing Lab: [address] [address] PROTEIN,TOTAL 6.8 g/dL 6.0-8.3 ALBUMIN 3.9 g/dL 3.5-5.0 ALKALINE PHOSPHATASE 66 U/L 40-150 AST 21 U/L 5-34 ALT 34 U/L BILIRUBIN, TOTAL 0.4 mg/dL 0.2-1.2 Jan 06, 2024 09:55 AM [facility] LIPID PANEL FASTING Specimen Type: SERUM No comment entered. Ordering Provider: BOY DELONG Report Released Date/Time: Nov 23, 2023 08:33 AM Reporting Lab: [facility]TR[facility]ITAL[facility] [address] [facility] [address] Performing Lab: [facility]ITALR[facility]ITALUSETS [facility] [address] [facility] [address] CHOLESTEROL 168 mg/dL TRIGLYCERIDE 70 mg/dL 0-150 LDL calculated 115 mg/dL 0-129 CHOL/HDL 4.3 HDL CHOLESTEROL 39 mg/dL L 40-60 Jan 06, 2024 09:55 AM [facility] VITAMIN D (25-OH) Specimen Type: SERUM No comment entered. Ordering Provider: BOY DELONG Report Released Date/Time: Nov 23, 2023 08:33 AM Reporting Lab: [facility]ITALR[facility] [address] [address] Performing Lab: [facility]ITALR[facility]ITALUSE[address] [address] VITAMIN D (25-OH) 23 ng/mL 20-50 Jan 06, 2024 09:55 AM [facility] FERRITIN Specimen Type: SERUM No comment entered. Ordering Provider: BOY DELONG Report Released Date/Time: Nov 23, 2023 08:33 AM Reporting Lab: [facility]ITALR[facility]ITALUSE[facility] [address] [facility] [address] Performing Lab: [facility]ITALR[facility]ITALUSE[address] [address] FERRITIN 214 ng/mL 20-300 Jan 06, 2024 09:55 AM [facility] VITAMIN B12 Specimen Type: SERUM No comment entered. Ordering Provider: BOY DELONG Report Released Date/Time: Nov 23, 2023 08:33 AM Reporting Lab: [facility]ITALRBEAC[facility] HOSPITALTRN [facility]OS[facility]ITALUSETS [address] [address] Performing Lab: [facility]ITALRREG[facility]ITALUSE[address] [address] VITAMIN B12 636 pg/mL 200-900 Jan 06, 2024 09:55 AM [facility] PSA Specimen Type: SERUM No comment entered. Ordering Provider: BOY DELONG Report Released Date/Time: Nov 23, 2023 08:33 AM Reporting Lab: [address] [address] Performing Lab: [address] [address] PSA 1.09 ng/mL 0.00-4.00 Jan 06, 2024 09:55 AM [facility] HEMOGLOBIN A1C PANEL Specimen Type: BLOOD Comment: [...] Nov 23, 2023 08:33 AM Reporting Lab: [address] [address] Performing Lab: [address] [address] HEMOGLOBIN A1C 5.5 4.0-5.6 Jan 06, 2024 09:55 AM [facility] CBC AND DIFF (AUTO) Specimen Type: BLOOD No comment entered. Ordering Provider: BOY DELONG Report Released Date/Time: Nov 23, 2023 08:33 AM Reporting Lab: [address] [address] Performing Lab: [address] [address] WBC 3.76 10*3/uL L 4.50-11.00 RBC 5.35 [...] 10*3/uL 0.00-0.00 Jan 06, 2024 09:55 AM [facility] TSH Specimen Type: SERUM No comment entered. Ordering Provider: BOY DELONG Report Released Date/Time: Nov 23, 2023 08:33 AM Reporting Lab: [facility] [address] [facility] [address] Performing Lab: [address] [address] TSH 3.01 u[IU]/mL 0.35-5.00 Radiology Reports: +/- [...] data comes from all [place] treatment facilities. Date/Time Radiology Report Provider Source Jan 10, 2024 11:27 AM KNEE 3 VIEWS (LEFT): JORDAN HONGJoey REIS [id number] -1960 M Exm Date: JAN 10, 2024@11:27 Req Phys: BOY DELONG Pat Loc: CWM/SO/PACT 3 WH (Req'g Loc) Img Loc: [facility] Service: Unknown [facility] [address] (Case [id number] COMPLETE) KNEE 3 VIEWS (LEFT) (RAD Detailed) CPT:51473 Reason for Study: left knee pain Clinical History: any OA or joint erosions? did have gout L knee Report Status: Verified Date Reported: JAN 10, 2024 Date Verified: JAN 10, 2024 Manufacturing Development Engineer E-Sig: Report: KNEE 3 VIEWS (LEFT) COMPARISON: [...] the right knee demonstrates severe medial and blaa-yi-pckikwuo lateral tibiofemoral compartment joint degeneration, similar to [...] to prior. READING PHYSICIAN: Karon Blount M.D. -[id number] 01/10/2024 11:58 EST [facility] National Teleradiology Program [phone] (For Medical Practitioner Use Only) Attention Patients / Veterans: If you have questions or concerns about these test results, please contact your ordering provider or primary care team. Primary Diagnostic Code: NO ALERT REQUIRED Primary Interpreting Staff: RADIOLOGY,OUTSIDE SERVICE, Staff Physician / RADIOLOGY,OUTSIDE SERVICE [facility] Jan 10, 2024 11:[address] MAXILLOFACIAL W/O CONT: LUPILLO HONG [id number] -1960 M Exm Date: JAN 10, 2024@11:15 Req Phys: DELONG,BOY Azalea Loc: CWM/SO/PACT 3 WH (Req'g Loc) Img Loc: NHM/CT Service: Unknown [facility] [place] [address] (Case [id number] COMPLETE) CT MAXILLOFACIAL W/O CONT (CT Detailed) CPT:92705 Reason for Study: post nasal drip Clinical History: always cleasring thraot Report Status: Verified Date Reported: JAN 10, 2024 Date Verified: JAN 10, 2024 Manufacturing Development Engineer E-Sig: Report: MAXILLOFACIAL CT WITHOUT IV CONTRAST/CT OF THE PARANASAL SINUSES WITHOUT IV CONTRAST: INDICATION: Post nasal drip. Patient reportedly always clearing throat. TECHNIQUE: Volumetric CT acquisition through the maxillofacial structures/paranasal sinuses, with axial, coronal and sagittal reformats, was performed at the local [place] facility. 159 images were received by the [place] National Teleradiology Program (NTP) for interpretation. RADIATION [...] commentary as above. READING PHYSICIAN: Boy Sun -[phone] 01/10/2024 16:06 [facility] Tittatradiology Program [phone] (For Medical Practitioner Use Only) Attention Patients / Veterans: If you have questions or concerns about these test results, please contact your ordering provider or primary care team. Primary Diagnostic Code: NO ALERT REQUIRED Primary Interpreting Staff: RADIOLOGY,OUTSIDE SERVICE, Staff Physician / RADIOLOGY,OUTSIDE SERVICE [facility] Jan 10, 2024 11:[address] THORAX W/O CONT: JORDAN HONGL SMILEY [id number] -1960 M Exm Date: JAN 10, 2024@11:15 Req Phys: BOY DELONG Loc: CWM/SO/PACT 3 WH (Req'g Loc) Img Loc: NHM/CT Service: [place] [address] (Case [id number] COMPLETE) CT THORAX W/O CONT (CT Detailed) CPT:69428 Reason for Study: chest tightness Clinical History: post nasal drip coughing echo and ekg of heart neg for cardiac pathology back in may 2023 any signs interstitial lung disease? Report Status: Verified Date Reported: JAN 10, 2024 Date Verified: JAN 10, 2024 Manufacturing Development Engineer E-Sig: Report: CT OF THE CHEST WITHOUT IV CONTRAST INDICATION: Chest tightness, post nasal drip, coughing. Assess for signs of interstitial lung disease. TECHNIQUE: Volumetric CT acquisition through the chest, with axial, coronal and sagittal reformats, was performed at the local [place] facility. 1194 images were received by the [place] National Teleradiology Program (NTP) for interpretation. RADIATION [...] as detailed above. READING PHYSICIAN: Boy Sun -[phone] 01/10/2024 17:01 [facility] National Teleradiology Program [phone] (For Medical Practitioner Use Only) Attention Patients / Veterans: If you have questions or concerns about these test results, please contact your ordering provider or primary care team. Primary Diagnostic Code: SIGNIFICANT ABNORMALITY, ATTN NEEDED Primary Interpreting Staff: RADIOLOGY,OUTSIDE SERVICE, Staff Physician / RADIOLOGY,OUTSIDE SERVICE [facility] Encounter Notes: All associated encounter notes This section contains the clinical notes associated to the Encounter. Date/Time Encounter Note(s) Provider Source Jan 05, 2024 02:10 PM SECURE MESSAGING: LOCAL TITLE: BACK CLINIC SECURE MESSAGING STANDARD TITLE: SECURE MESSAGING DATE OF NOTE: JAN 05, 2024@14:10 ENTRY DATE: JAN 05, 2024@14:10:55 AUTHOR: SARITA GREWAL EXP COSIGNER: URGENCY: STATUS: COMPLETED ------Original Message --------- Sent: 01/04/2024 06:52 PM ET From: LUPILLO HONG To: [facility]! Subject: Appointment:LEFT KNEE My left knee is giving me more issues. I can not walk without a limp, the swelling never fully subsides after taking the medication for gout or any other nsaids. The pain level is 6-9, and at times very weak and unable to walk or stand . this msg is for mr murphy /ivone/ Sarita Grewal RN Med Rehab Signed: 01/05/2024 14:10 SARITA GREWAL [facility]
== END 2024-02-09 13:52 | disposition home or self-care (01) ==
LOC: CF 13:51
DX: Z13.89 Encounter for screening for other disorder (principal)

== ENCOUNTER 2024-03-01 08:42 | Outpatient (REF) | payer OTHER, SELFPAY ==
--- OUTSIDE RECORDS SUMMARY | 2024-03-02 08:56 | XMS_ITS ---
Author Name [facility] [facility] [place] [facility] [place] Address [address] [place] [address] Care Team Providers Care Digester Capper Name Role Phone BOY DELONG Primary Care [...] [facility] [place] Mar 07, 2020 [facility] [id number] MARGARETH HONG RRYL PATIENT Selected Encounter This section includes the information on record at [place] for the Encounter. Date/Time Encounter Type Encounter Description Reason Provider Source Apr 01, 2023 03:42 PM QNHP OL DIG ASSMT&MGMT 11-20 CLINICAL PHARMACY ICD-10-CM M17.0 Bilateral primary osteoarthritis of knee TEP,SOPHOUS SHANKAR IHE Encounter Template Text not used by [place] Assessments - Encounter Diagnoses This section includes the primary and secondary diagnoses documented for the Encounter. Date/Time Primary/Secondary Diagnosis Diagnosis Name Provider Source Apr 01, 2023 03:53 PM PRIMARY Bilateral primary osteoarthritis of knee TEP,SOPHOUS SHANKAR [place] [facility] [place] [facility] Plan of Treatment: Future Appointments (+ 6 months) and Future Tests (+/- 45 days) The Plan of Treatment section includes future care activities for the patient from all [place] [facility]. This section includes future appointments and future orders which are active, pending or scheduled. Future Appointments This section includes appointments that were scheduled to occur 6 months from the date of the Encounter, up to a maximum of 20 appointments. The data comes from all [place] treatment [facility]. Appointment Date/Time Appointment Type Appointme nt Facility Name Apr 04, 2023 03:00 PM AM[facility]ATORY - MEDICINE [facility] Apr 15, 2023 01:30 PM [facility]ORY - MEDICINE [facility] Apr 22, 2023 12:30 PM AMBULATORY - NONE [facility] [place] [facility] May 13, 2023 11:00 AM AMBULATORY - NONE [facility] [place] [facility] May 23, 2023 07:30 AM AMBULATORY - REHAB MEDICIN E [facility] [place] [facility] Jun 10, 2023 11:30 AM AMBULATORY - MEDICINE [facility] Jun 17, 2023 08:00 AM AMBULATORY - PSYCHIATRY [facility] Jun 21, 2023 08:00 AM AMBULATORY - PSYCHIATRY [facility] Jun 24, 2023 11:00 AM AMBULATORY - NONE [facility] [place] [facility] Jun 24, 2023 11:30 AM AMBULATORY - REHAB MEDICIN E [facility] [place] [facility] July 22, 2023 01:00 PM AMBULATORY - PSYCHIATRY [facility] August 03, 2023 08:00 AM [facility] August 05, 2023 09:00 AM AMBULATORY - PSYCHIATRY [facility] [place] [facility] August 05, 2023 03:00 PM AMBULATORY - PSYCHIATRY [facility] [place] [facility] Aug 11, 2023 10:40 AM AMBULATORY - MEDICINE [facility] [place] [facility] Aug 19, 2023 10:00 AM AMBULATORY - REHAB MEDICIN [facility] Sep 09, 2023 09:30 AM AMBULATORY - PSYCHIATRY [place] [facility] [place] [facility] Radiology Reports: +/- 30 days of the [...] the Encounter. The data comes from all [place] treatment facilities. Date/Time Radiology Report Provider Source Apr 22, 2023 12:32 PM NON-INVAS. CAROTID IMAGING: LUPILLO HONG [id number] -1960 M Exm Date: APR 22, 2023@12:32 Req Phys: BOY DELONG Loc: CWM/SO/PACT 3 WH (Req'g Loc) Img Loc: ULTRASOUND Service: Unknown (Case [id number] COMPLETE) NON-INVAS. CAROTID IMAGING (US Detailed) CPT:33570 Reason for Study: HTN Clinical History: screen Report Status: Verified Date Reported: APR 24, 2023 Date Verified: APR 24, 2023 Sap Director E-Sig: Report: NON-INVAS. CAROTID IMAGING HISTORY: Reason for Study: HTN screen. COMPARISON: No prior exams for comparison TECHNIQUE: Duplex imaging of the carotid arteries was performed at the local [place] facility utilizing grayscale, color Doppler and spectral analysis. 31 images were received by the [place] National Teleradiology Program (NTP) for interpretation. FINDINGS: [...] 100 cm/sec READING PHYSICIAN: Lloyd Sanchez M.D. -[id number] 04/23/2023 19:24 [facility] National Teleradiology Program [phone] (For Medical Practitioner Use Only) Attention Patients / Veterans: If you have questions or concerns about these test results, please contact your ordering provider or primary care team. Primary Diagnostic Code: NO ALERT REQUIRED Primary Interpreting Staff: RADIOLOGY,OUTSIDE SERVICE, Staff Physician / RADIOLOGY,OUTSIDE SERVICE [facility] Apr 22, 2023 12:31 PM ULTRASOUND AAA SCREENING: JORDAN HONGJoey REIS [id number] -1960 M Ex Date: APR 22, 2023@12:31 Req Phys: BOY DELONG Loc: CWM/SO/PACT 3 WH (Req'g Loc) Img Loc: ULTRASOUND Service: Unknown (Case [id number] COMPLETE) ULTRASOUND AAA SCREENING (US Detailed) CPT:19313 Reason for Study: HTN Clinical History: screen Report Status: Verified Date Reported: APR 23, 2023 Date Verified: APR 23, 2023 Sap Director E-Sig: Report: ULTRASOUND AAA SCREENING PROVIDED CLINICAL [...] aneurysm identified. READING PHYSICIAN: Lloyd Sanchez M.D. -[id number] 04/23/2023 16:56 [facility] National Teleradiology Program [phone] (For Medical Practitioner Use Only) Attention Patients / Veterans: If you have questions or concerns about these test results, please contact your ordering provider or primary care team. Primary Diagnostic Code: NO ALERT REQUIRED Primary Interpreting Staff: RADIOLOGY,OUTSIDE SERVICE, Staff Physician / RADIOLOGY,OUTSIDE SERVICE [facility] Encounter Notes: All associated encounter notes This [...] of Celebrex 200mg daily. Had PT in [place] but was mostly for lumbar pain and [...] Signed: 04/01/2023 15:53 [facility] BYRNE [facility]
--- OUTSIDE RECORDS SUMMARY | 2024-03-02 08:56 | XMS_ITS | Encounter Summary ---
Author Name [facility] [place] Organization [facility] [place] Address [address] [place] [address] Care Team Providers Care Wool Hat Hydraulicker Name Role Phone BOY DELONG Primary Care [...] PRESCRIPT ION HEALT H NEW ENGL [facility] Mar 07, 2020 [facility] [id number] MARGARETH HONG RRYL PATIENT Selected Encounter [...] 10, 2023 11:30 AM AMBULATORY - MEDICINE [facility] Jun 17, 2023 08:00 AM AMBULATORY - PSYCHIATRY [facility] Jun 21, 2023 08:00 AM AMBULATORY - PSYCHIATRY [facility] Jun 24, 2023 11:00 AM AMBULATORY - NONE [facility] [place] [facility] Jun 24, 2023 11:30 AM AMBULATORY - REHAB MEDICIN [facility] [place] [facility] July 22, 2023 01:00 PM AMBULATORY - PSYCHIATRY [facility] August 03, 2023 08:00 AM AMBULATORY - REHAB MEDICIN [place] August 05, 2023 09:00 AM AMBULATORY - [facility]IATRY [facility] [place] [facility] August 05, 2023 03:00 PM AMBULATORY - PS[facility]IATRY [facility] [place] [facility] Aug 11, 2023 10:40 AM AM[facility]ULAT[facility]ICINE [facility] [place] [facility] Aug 19, 2023 10:00 AM AMBULATORY - REHAB MEDICIN E [place] Sep 09, 2023 09:30 AM AMBULATORY - [facility]IATRY [facility] [place] [facility] Oct 14, 2023 09:30 AM AMBULATORY - [facility] [place] [facility] Oct 28, 2023 10:00 AM AMBULATORY - PS[facility]IATRY [facility] [place] [facility] Nov 11, 2023 11:00 AM AMBULATORY - PS[facility]IATRY [facility] [place] [facility] Nov 14, 2023 03:00 PM AMBULATORY - MEDICINE [facility] [place] [facility] Nov 17, 2023 08:00 AM AMBULATORY - MEDICINE [facility] [place] [facility] Lab Results: +/- 30 days [...] Range Comment Jun 09, 2023 08:32 AM [place] VITAMIN D (25-OH) Specimen Type: SERUM No comment entered. Ordering Provider: BOY DELONG Report Released Date/Time: Dec 14, 2022 10:56 AM Reporting Lab: [place] [address] [address] Performing Lab: [address] [address] VITAMIN D (25-OH) 21 ng/mL 20-50 Jun 09, 2023 08:32 AM [place] URINALYSIS Specimen Type: URINE Comment: If Glucose = >500 and Ketones are positive, please alert the Physician. Ordering Provider: BOY DELONG Report Released Date/Time: Dec 14, 2022 10:56 AM Reporting Lab: [address] [address] Performing Lab: [address] [address] UA COLOR Light-Yellow Yellow UA APPEARANCE Clear Clear UA GLUCOSE NEGATIVE mg/dL Negative UA KETONES NEGATIVE mg/dL Negative UA BLOOD NEGATIVE mg/dL Negative UA PROTEIN NEGATIVE mg/dL Negative UA NITRITE NEGATIVE mg/dL Negative UA BILIRUBIN NEGATIVE mg/dL Negative UA SPECIFIC GRAVITY 1.015 L 1.016-1.02 2 UA pH 5.5 5.0-9.0 UA UROBILINOGEN <2.0 mg/dL <2.0 UA LEUKOCYTE NEGATIVE Negative Jun 09, 2023 08:32 AM [place] VITAMIN B12 Specimen Type: SERUM No comment entered. Ordering Provider: BOY DELONG Report Released Date/Time: Dec 14, 2022 10:56 AM Reporting Lab: [address] [address] Performing Lab: [address] [address] VITAMIN B12 580 pg/mL 200-900 Jun 09, 2023 08:32 AM [place] FERRITIN Specimen Type: SERUM No comment entered. Ordering Provider: BOY DELONG Report Released Date/Time: Dec 14, 2022 10:56 AM Reporting Lab: [address] [address] Performing Lab: [address] [address] FERRITIN 199 ng/mL 20-300 Jun 09, 2023 08:32 AM [place] RETICULOCYTES Specimen Type: BLOOD No comment entered. Ordering Provider: BOY DELONG Report Released Date/Time: Dec 14, 2022 10:56 AM Reporting Lab: [address] [address] Performing Lab: [address] [address] RETIC % 1.1 0.6-2.0 RETIC, ABS 61.8 10*3/uL 30.0-90.0 Ret-He % 31.3 27.9-42.0 Jun 09, 2023 08:32 AM [place] CBC AND DIFF (AUTO) Specimen Type: BLOOD No comment entered. Ordering Provider: BOY DELONG Report Released Date/Time: Dec 14, 2022 10:56 AM Reporting Lab: [address] [address] Performing Lab: [address] [address] WBC 4.38 10*3/uL L 4.50-11.00 RBC 5.42 10*6/uL 4.23-5.66 HGB 15.0 g/dL 12.8-17 HCT 44.9 39.2-50.4 MCV 82.8 fL 82-99 MCHC 33.4 g/dL 30.8-35.1 PLT 265 10*3/uL 140-360 RDW-CV 12.8 12.0-16.0 [place], Abs 0.37 10*3/uL 0.30-1.10 MCH 27.7 pg 26.2-32.6 Neut % 56.0 43.7-75.8 Lymph % 31.7 14.0-42.3 [place] % 8.4 5.1-13.7 Eos % 3.0 0.4-6.8 Baso % 0.7 0.1-2.0 Neut, Abs 2.45 10*3/uL 2.20-7.60 Lymph, Abs 1.39 10*3/uL 1.00-3.20 Eos, Abs 0.13 10*3/uL 0.03-0.44 Baso, Abs 0.03 10*3/uL 0.01-0.13 Immature Gran % 0.2 0.0-0.7 Immature Gran, Abs 0.01 10*3/uL 0.00-0.06 Jun 09, 2023 08:32 AM [place] HEMOGLOBIN A1C PANEL Specimen Type: BLOOD Comment: [...] Dec 14, 2022 10:56 AM Reporting Lab: [place] [facility] [place] [address] [address] Performing Lab: [place] [facility] [address] [address] HEMOGLOBIN A1C 5.8 H 4.0-5.6 Jun 09, 2023 08:32 AM [place] PSA Specimen Type: SERUM No comment entered. Ordering Provider: BOY DELONG Report Released Date/Time: Dec 14, 2022 10:56 AM Reporting Lab: [place] [facility] [facility] [address] [address] Performing Lab: [place] [facility] [place] [address] [address] PSA 2.13 ng/mL 0.00-4.00 Jun 09, 2023 08:32 AM [place] TSH Specimen Type: SERUM No comment entered. Ordering Provider: BOY DELONG Report Released Date/Time: Dec 14, 2022 10:56 AM Reporting Lab: [place] [facility] [place] [address] [address] Performing Lab: [place] [facility] [place] [address] [address] TSH 2.27 u[IU]/mL 0.35-5.00 Jun 09, 2023 08:32 AM [place] LIVER FUNCTION Specimen Type: SERUM No comment entered. Ordering Provider: BOY DELONG Report Released Date/Time: Dec 14, 2022 10:56 AM Reporting Lab: [place] [facility] [place] [address] [address] Performing Lab: [facility] [address] [address] PROTEIN,TOTAL 6.9 g/dL 6.0-8.3 ALBUMIN 4.0 g/dL 3.5-5.0 ALKALINE PHOSPHATASE 66 U/L 40-150 AST 19 U/L 5-34 ALT 27 U/L BILIRUBIN, TOTAL 0.5 mg/dL 0.2-1.2 Jun 09, 2023 08:32 AM [place] BASIC METABOLIC PANEL (fasting) Specime n Type: SERUM No comment entered. Ordering Provider: BOY DELONG Report Released Date/Time: Dec 14, 2022 10:56 AM Reporting Lab: [address] [address] Performing Lab: [address] [address] UREA NITROGEN 15 mg/dL 7-25 GLUCOSE 113 mg/dL H 65-100 SODIUM 141 mmol/L 135-145 POTASSIUM 3.9 mmol/L 3.5-5.0 CHLORIDE 108 mmol/L 100-110 CO2 24 meq/L 20-30 CREATININE, Serum 1.17 mg/dL 0.50-1.40 eGFR(CKD-EPI 2020) 71 mL/min >60 Jun 09, 2023 08:32 AM [place] LIPID PANEL FASTING Specimen Type: SERUM No comment entered. Ordering Provider: BOY DELONG Report Released Date/Time: Dec 14, 2022 10:56 AM Reporting Lab: [address] [address] Performing Lab: [address] [address] CHOLESTEROL 173 mg/dL TRIGLYCERIDE 81 mg/dL 0-150 LDL calculated 118 mg/dL 0-129 CHOL/HDL 4.4 HDL CHOLESTEROL 39 mg/dL L 40-60 Jun 09, 2023 08:32 AM [place] CALCIUM Specimen Type: SERUM No comment entered. Ordering Provider: BOY DELONG Report Released Date/Time: Dec 14, 2022 10:56 AM Reporting Lab: [address] [address] Performing Lab: [address] [place] [address] CALCIUM 8.8 mg/dL 8.5-10.2 Jun 09, 2023 08:32 AM [place] URIC ACID Specimen Type: SERUM No comment entered. Ordering Provider: BOY DELONG Report Released Date/Time: Dec 14, 2022 10:56 AM Reporting Lab: [facility] [address] [address] Performing Lab: [address] [address] URIC ACID 5.6 mg/dL 3.5-7.2 Vital Signs: All taken on the encounter date This section contains inpatient and outpatient Vital Signs collected on the date of the Encounter. Date/Time Temperature Pulse Blood Pressure Respiratory Rate SP02 Pain Height Weight Body Mass Index Source May 23, 2023 07:41 AM 130/80 5 [facility]
--- OUTSIDE RECORDS SUMMARY | 2024-03-02 08:56 | XMS_ITS | Encounter Summary ---
Author Name [facility] [place] Organization [place] Address [address] [place] [address] Care Team Providers Care Child'S Nurse Name Role Phone BOY DELONG Primary Care [...] RX PRESCRIPT ION HEALT H NEW ENGL [facility] Mar 07, 2020 [facility] [id number] MARGARETH HONG RRYL PATIENT Selected Encounter This section includes the information on record at [place] for the Encounter. Date/Time Encounter Type Encounter Description Reason Pro vider Source Apr 15, 2023 03:36 PM Outpatient Encounter PRIMARY CARE/MEDICINE IHE Encounter Template Text not used by PA Plan of Treatment: Future Appointments (+ 6 months) and Future Tests (+/- 45 days) The Plan of Treatment section includes future care activities for the patient from all [place] treatmentfacilities. This section includes future appointments and future orders which are active, pending or scheduled. Future Appointments This section includes appointments that were scheduled to occur 6 months from the date of the Encounter, up to a maximum of 20 appointments. The data comes from all [place] treatment facilities. Appointment Date/Time Appointment Type Appointme nt Facility Name Apr 22, 2023 12:30 PM AMBULATORY - NONE [facility] [place] [facility] May 13, 2023 11:00 AM AMBULATORY - NONE [facility] [place] [facility] May 23, 2023 07:30 AM AMBULATORY - REHAB MEDICIN E [facility] [place] [facility] Jun 10, 2023 11:30 AM AMBULATORY - MEDICINE [facility] Jun 17, 2023 08:00 AM AMBULATORY - PSYCHIATRY [facility] Jun 21, 2023 08:00 AM AMBULATORY - PSYCHIATRY [facility] Jun 24, 2023 11:00 AM AMBULATORY - NONE [facility] [place] [facility] Jun 24, 2023 11:30 AM AMBULATORY - REHAB MEDICIN E [facility] [place] [facility] July 22, 2023 01:00 PM AMBULATORY - PSYCHIATRY [facility] August 03, 2023 08:00 AM AMBULATORY - REHAB MEDICIN [facility] [place] August 05, 2023 09:00 AM AMBULATORY - PS[facility]CHIATRY [facility] [place] [facility] August 05, 2023 03:00 PM AMBULATORY - PS[facility]CHIATRY [facility] [place] [facility] Aug 11, 2023 10:40 AM AMBULATORY - MEDICINE [facility] [place] [facility] Aug 19, 2023 10:00 AM AMBULATORY - REHAB MEDICIN E [place] Sep 09, 2023 09:30 AM AMBULATORY - PS[facility]CHIATRY [facility] [place] [facility] Oct 14, 2023 09:30 AM AMBULATORY - PSYCHIATRY [facility] [place] [facility] Radiology Reports: +/- 30 days [...] The data comes from all [place] treatment [facility]. Date/Time Radiology Report Provider Source Apr 22, 2023 12:32 PM NON-INVAS. CAROTID IMAGING: LUPILLO HONG [id number] -1960 M Exm Date: APR 22, 2023@12:32 Req Phys: BOY DELONG Loc: CWM/SO/PACT 3 WH (Req'g Loc) Img Loc: ULTRASOUND Service: Unknown (Case [id number] COMPLETE) NON-INVAS. CAROTID IMAGING (US Detailed) CPT:75364 Reason for Study: HTN Clinical History: screen Report Status: Verified Date Reported: APR 24, 2023 Date Verified: APR 24, 2023 Program Arranger E-Sig: Report: NON-INVAS. CAROTID IMAGING HISTORY: Reason [...] 100 cm/sec READING PHYSICIAN: Lloyd Sanchez M.D. -[id number] 04/23/2023 19:[facility] National Teleradiology Program [phone] (For Medical Practitioner Use Only) Attention Patients / Veterans: If you have questions or concerns about these test results, please contact your ordering provider or primary care team. Primary Diagnostic Code: NO ALERT REQUIRED Primary Interpreting Staff: RADIOLOGY,OUTSIDE SERVICE, Staff Physician / RADIOLOGY,OUTSIDE SERVICE [facility] Apr 22, 2023 12:31 PM ULTRASOUND AAA SCREENING: LUPILLO HONG [id number] -1960 M Ex Date: APR 22, 2023@12:31 Req Phys: BOY DELONG Loc: CWM/SO/PACT 3 WH (Req'g Loc) Img Loc: ULTRASOUND Service: Unknown (Case [id number] COMPLETE) ULTRASOUND AAA SCREENING (US Detailed) CPT:07705 Reason for Study: HTN Clinical History: screen Report Status: Verified Date Reported: APR 23, 2023 Date Verified: APR 23, 2023 Program Arranger E-Sig: Report: ULTRASOUND AAA SCREENING PROVIDED CLINICAL [...] aneurysm identified. READING PHYSICIAN: Lloyd Sanchez M.D. -[id number] 04/23/2023 16:56 [facility] National Teleradiology Program [phone] (For Medical Practitioner Use Only) Attention Patients / Veterans: If you have questions or concerns about these test results, please contact your ordering provider or primary care team. Primary Diagnostic Code: NO ALERT REQUIRED Primary Interpreting Staff: RADIOLOGY,OUTSIDE SERVICE, Staff Physician / RADIOLOGY,OUTSIDE SERVICE [facility] Encounter Notes: All associated encounter notes This section contains the clinical notes associated to the Encounter. Date/Time Encounter Note(s) Provider Source Apr 15, 2023 03:36 PM CLERICAL NOTE: LOCAL TITLE: APPOINTMENT NO SHOW STANDARD TITLE: CLERICAL NOTE DATE OF NOTE: APR 15, 2023@15:36 ENTRY DATE: APR 15, 2023@15:36:43 AUTHOR: ANITA MANUEL COSIGNER: URGENCY: STATUS: COMPLETED Patient Name: LUPILLO HONG Patient SSN: [id number] Date and time of Appointment No show [...] 09/02/2023 09:00 NHM/OPTOMETRY/BORASKI /es/ JT MANUEL [employer] Interviewer Signed: 04/15/2023 15:37 JT MANUEL [place]
--- OUTSIDE RECORDS SUMMARY | 2024-03-02 08:56 | XMS_ITS ---
Author Name [facility] [place] [facility] [facility] [place] Address [address] [place] [address] Care Team Providers Care Brick Kiln Worker Name Role Phone BOY DELONG Primary Care [...] OPTUM RX PRESCRIPT ION HEALT H [facility] [place] Mar 07, 2020 [facility] [id number] MARGARETH HONG RRYL PATIENT Selected Encounter This section includes the information on record at [place] for the Encounter. Date/Time Encounter Type Encounter Description Reason Provider Source May 13, 2023 11:00 AM TTE W/DOPPLER COMPLETE CARDIAC ECHO ICD-10-CM I10 Essential (primary) hypertension SJ YOON Rosibel Encounter Template Text not used by [place] Assessments - Encounter Diagnoses This section includes the primary and secondary diagnoses documented for the Encounter. Date/Time Primary/Secondary Diagnosis Diagnosis Name Provider Source May 13, 2023 11:25 AM PRIMARY Essential (primary) hypertension [facility] [place] [facility] Plan of Treatment: Future Appointments (+ 6 months) and Future Tests (+/- 45 days) The Plan of Treatment section includes future care activities for the patient [facility] [place] [facility] This section includes future appointments and future orders which are active, pending or scheduled. Future Appointments This section includes appointments that were scheduled to occur 6 months from the date of the Encounter, up to a maximum of 20 appointments. The data comes from all [place] treatment facilities. Appointment Date/Time Appointment Type Appointme nt Facility Name May 23, 2023 07:30 AM AMBULATORY - RE[facility]AB MEDICIN [facility] [place] [facility] Jun 10, 2023 11:30 AM AMBULATORY - MEDICINE [facility] Jun 17, 2023 08:00 AM AMBULATORY - PSYCHIATRY [facility] Jun 21, 2023 08:00 AM AMBULATORY - PSYCHIATRY [facility] Jun 24, 2023 11:00 AM AMBULATORY - NONE [facility] [place] [facility] Jun 24, 2023 11:30 AM AMBULATORY - REHAB MEDICIN [facility] [place] [facility] July 22, 2023 01:00 PM AMBULATORY - PSYCHIATRY [facility] August 03, 2023 08:00 AM AMBULATORY - RE[facility]AB MEDICIN [facility] August 05, 2023 09:00 AM AMBULATORY - PS[facility]IAT[facility] [place] [facility] August 05, 2023 03:00 PM AMBULATORY - PS[facility]CHIATRY [facility] [place] [facility] Aug 11, 2023 10:40 AM [facility]UL[facility]IC[facility] [place] [facility] Aug 19, 2023 10:00 AM AMBULATORY - [facility]IN [facility] Sep 09, 2023 09:30 AM AMBULATORY - PS[facility]CHIATRY [facility] [place] [facility] Oct 14, 2023 09:30 AM AMBULATORY - PS[facility]CHIATRY [facility] [place] [facility] Oct 28, 2023 10:00 AM AMBULATORY - PSYCHIATRY [facility] [place] [facility] Nov 11, 2023 11:00 AM AMBULATORY - PS[facility]CHIATRY [facility] [place] [facility] Lab Results: +/- 30 days of the encounter This section includes the Chemistry and Hematology Lab Results on record with [place] for the patient. Radiology Reports and Pathology Reports are provided separately, in subsequent sections. Lab Results This section contains the Chemistry/Hematology Results that were resulted 30 days before or 30 daysafter the date of the Encounter. Date/Time Source Result Type Result - Unit Interpretation Reference Range Comment Jun 09, 2023 08:32 AM [facility] VITAMIN D (25-[place]) Specimen Type: SERUM No comment entered. Ordering Provider: BOY DELONG Report Released Date/Time: Dec 14, 2022 10:56 AM Reporting Lab: [address] [address] Performing Lab: [address] [address] VITAMIN D (25-[place]) 21 ng/mL 20-50 Jun 09, 2023 08:32 AM [facility] URINALYSIS Specimen Type: URINE Comment: If Glucose = >500 and Ketones are positive, please alert the Physician. Ordering Provider: BOY DELONG Report Released Date/Time: Dec 14, 2022 10:56 AM Reporting Lab: [address] [address] Performing Lab: [address] [address] UA COLOR Light-Yellow Yellow UA APPEARANCE Clear Clear UA GLUCOSE NEGATIVE mg/dL Negative UA KETONES NEGATIVE mg/dL Negative UA BLOOD NEGATIVE mg/dL Negative UA PROTEIN NEGATIVE mg/dL Negative UA NITRITE NEGATIVE mg/dL Negative UA BILIRUBIN NEGATIVE mg/dL Negative UA SPECIFIC GRAVITY 1.015 L 1.016-1.02 2 UA pH 5.5 5.0-9.0 UA UROBILINOGEN <2.0 mg/dL <2.0 UA LEUKOCYTE NEGATIVE Negative Jun 09, 2023 08:32 AM [facility] VITAMIN B12 Specimen Type: SERUM No comment entered. Ordering Provider: BOY DELONG Report Released Date/Time: Dec 14, 2022 10:56 AM Reporting Lab: [address] [phone] Performing Lab: [address] [address] VITAMIN B12 580 pg/mL 200-900 Jun 09, 2023 08:32 AM [facility] FERRITIN Specimen Type: SERUM No comment entered. Ordering Provider: BOY DELONG Report Released Date/Time: Dec 14, 2022 10:56 AM Reporting Lab: [address] [address] Performing Lab: [address] [address] FERRITIN 199 ng/mL 20-300 Jun 09, 2023 08:32 AM [facility] CBC AND DIFF (AUTO) Specimen Type: BLOOD No comment entered. Ordering Provider: BOY DELONG Report Released Date/Time: Dec 14, 2022 10:56 AM Reporting Lab: [address] [address] Performing Lab: [address] [address] WBC 4.38 10*3/uL L 4.50-11.00 RBC 5.42 10*6/uL 4.23-5.66 HGB 15.0 g/dL 12.8-17 HCT 44.9 39.2-50.4 MCV 82.8 fL 82-99 MCHC 33.4 g/dL 30.8-35.1 PLT 265 10*3/uL 140-360 RDW-CV 12.8 12.0-16.0 Anson, Abs 0.37 10*3/uL 0.30-1.10 MCH 27.7 pg 26.2-32.6 Neut % 56.0 43.7-75.8 Lymph % 31.7 14.0-42.3 Anson % 8.4 5.1-13.7 Eos % 3.0 0.4-6.8 Baso % 0.7 0.1-2.0 Neut, Abs 2.45 10*3/uL 2.20-7.60 Lymph, Abs 1.39 10*3/uL 1.00-3.20 Eos, Abs 0.13 10*3/uL 0.03-0.44 Baso, Abs 0.03 10*3/uL 0.01-0.13 Immature Gran % 0.2 0.0-0.7 Immature Gran, Abs 0.01 10*3/uL 0.00-0.06 Jun 09, 2023 08:32 AM [facility] HEMOGLOBIN A1C PANEL Specimen Type: BLOOD Comment: [...] Dec 14, 2022 10:56 AM Reporting [facility]: [facility] [address] [address] Performing Lab: [facility] [address] HEMOGLOBIN A1C 5.8 H 4.0-5.6 Jun 09, 2023 08:32 AM [facility] RETICULOCYTES Specimen Type: BLOOD No comment entered. Ordering Provider: BOY DELONG Report Released Date/Time: Dec 14, 2022 10:56 AM Reporting Lab: [facility] [address] [address] Performing Lab: [facility] [address] [address] RETIC % 1.1 0.6-2.0 RETIC, ABS 61.8 10*3/uL 30.0-90.0 Ret-He % 31.3 27.9-42.0 Jun 09, 2023 08:32 AM [facility] PSA Specimen Type: SERUM No comment entered. Ordering Provider: BOY DELONG Report Released Date/Time: Dec 14, 2022 10:56 AM Reporting Lab: [facility] [address] [address] Performing Lab: [facility] [address] [address] PSA 2.13 ng/mL 0.00-4.00 Jun 09, 2023 08:32 AM [facility] TSH Specimen Type: SERUM No comment entered. Ordering Provider: BOY DELONG Report Released Date/Time: Dec 14, 2022 10:56 AM Reporting Lab: [facility] [address] Performing Lab: [facility] [address] [address] TSH 2.27 u[IU]/mL 0.35-5.00 Jun 09, 2023 08:32 AM [facility] LIVER FUNCTION Specimen Type: SERUM No comment entered. Ordering Provider: BOY DELONG Report Released Date/Time: Dec 14, 2022 10:56 AM Reporting Lab: [address] [address] Performing Lab: [address] [address] PROTEIN,TOTAL 6.9 g/dL 6.0-8.3 ALBUMIN 4.0 g/dL 3.5-5.0 ALKALINE PHOSPHATASE 66 U/L 40-150 AST 19 U/L 5-34 ALT 27 U/L BILIRUBIN, TOTAL 0.5 mg/dL 0.2-1.2 Jun 09, 2023 08:32 AM [facility] BASIC METABOLIC PANEL (fasting) Specime n Type: SERUM No comment entered. Ordering Provider: BOY DELONG Report Released Date/Time: Dec 14, 2022 10:56 AM Reporting Lab: [address] [address] Performing Lab: [address] [address] UREA NITROGEN 15 mg/dL 7-25 GLUCOSE 113 mg/dL H 65-100 SODIUM 141 mmol/L 135-145 POTASSIUM 3.9 mmol/L 3.5-5.0 CHLORIDE 108 mmol/L 100-110 CO2 24 meq/L 20-30 CREATININE, Serum 1.17 mg/dL 0.50-1.40 eGFR(CKD-EPI 2020) 71 mL/min >60 Jun 09, 2023 08:32 AM [facility] LIPID PANEL FASTING Specimen Type: SERUM No comment entered. Ordering Provider: BOY DELONG Report Released Date/Time: Dec 14, 2022 10:56 AM Reporting Lab: [address] [address] Performing Lab: [address] [address] CHOLESTEROL 173 mg/dL TRIGLYCERIDE 81 mg/dL 0-150 LDL calculated 118 mg/dL 0-129 CHOL/HDL 4.4 HDL CHOLESTEROL 39 mg/dL L 40-60 Jun 09, 2023 08:32 AM [facility] CALCIUM Specimen Type: SERUM No comment entered. Ordering Provider: BOY DELONG Report Released Date/Time: Dec 14, 2022 10:56 AM Reporting Lab: [address] [address] Performing Lab: [address] [address] CALCIUM 8.8 mg/dL 8.5-10.2 Jun 09, 2023 08:32 AM [facility] URIC ACID Specimen Type: SERUM No comment entered. Ordering Provider: BOY DELONG Report Released Date/Time: Dec 14, 2022 10:56 AM Reporting Lab: [address] [address] Performing Lab: [address] [address] URIC ACID 5.6 mg/dL 3.5-7.2 Radiology Reports: [...] the Encounter. The data comes from all [facility] facilities. Date/Time Radiology Report Provider Source Apr 22, 2023 12:32 PM NON-INVAS. CAROTID IMAGING: GELYLUPILLO [id number] -1960 M Exm Date: APR 22, 2023@12:32 Req Phys: BOY DELONG Loc: CWM/SO/PACT 3 WH (Req'g Loc) Img Loc: ULTRASOUND Service: Unknown (Case [id number] COMPLETE) NON-INVAS. CAROTID IMAGING (US Detailed) CPT:29968 Reason for Study: HTN Clinical History: screen Report Status: Verified Date Reported: APR 24, 2023 Date Verified: APR 24, 2023 Account Relationship Manager E-Sig: Report: NON-INVAS. CAROTID IMAGING HISTORY: Reason for Study: HTN screen. COMPARISON: No prior exams for comparison TECHNIQUE: Duplex imaging of the carotid arteries was performed at the local [place] facility utilizing grayscale, color Doppler and spectral analysis. 31 images were received by the [place] [facility] ([facility]) for interpretation. FINDINGS: [...] 100 cm/sec READING PHYSICIAN: Lloyd Sanchez M.D. -[id number] 04/23/2023 19:24 [facility] National Teleradiology Program [phone] (For Medical Practitioner Use Only) Attention Patients / Veterans: If you have questions or concerns about these test results, please contact your ordering provider or primary care team. Primary Diagnostic Code: NO ALERT REQUIRED Primary Interpreting Staff: RADIOLOGY,OUTSIDE SERVICE, Staff Physician / RADIOLOGY,OUTSIDE SERVICE [facility] Apr 22, 2023 12:31 PM ULTRASOUND AAA SCREENING: LUPILLO HONG [id number] -1960 M Exm Date: APR 22, 2023@12:31 Req Phys: BOY DELONG Loc: CWM/SO/PACT 3 WH (Req'g Loc) Img Loc: ULTRASOUND Service: Unknown (Case [id number] COMPLETE) ULTRASOUND AAA SCREENING (US Detailed) CPT:81562 Reason for Study: HTN Clinical History: screen Report Status: Verified Date Reported: APR 23, 2023 Date Verified: APR 23, 2023 Account Relationship Manager E-Sig: Report: ULTRASOUND AAA SCREENING PROVIDED [...] aneurysm identified. READING PHYSICIAN: Lloyd Sanchez M.D. -[id number] 04/23/2023 16:56 [facility] National Teleradiology Program [phone] (For Medical Practitioner Use Only) Attention Patients / Veterans: If you have questions or concerns about these test results, please contact your ordering provider or primary care team. Primary Diagnostic Code: NO ALERT REQUIRED Primary Interpreting Staff: RADIOLOGY,OUTSIDE SERVICE, Staff Physician / RADIOLOGY,OUTSIDE SERVICE [facility] Encounter Notes: All associated encounter notes [...] by: Clinical,Device Proxy Service CLINICAL,DEVICE PROXY SERVICE [facility] May 13, 2023 11:24 AM CARDIOLOGY DIAGNOSTIC STUDY NOTE: LOCAL TITLE: ECHOCARDIOGRAM REPORT STANDARD TITLE: CARDIOLOGY DIAGNOSTIC STUDY NOTE DATE OF NOTE: MAY 13, 2023@11:24 ENTRY DATE: MAY 13, 2023@11:24:58 AUTHOR: ABDIFATAH YOON EXP COSIGNER: URGENCY: STATUS: COMPLETED DATE ECHOCARDIOGRAM PERFOMED: May ECHOCARDIOLOGY PACKING INSPECTOR: HALEY Ruelas RCS Procedure was performed without incident. The Study transmitted to [facility] via [employer] [facility] system for interpretation by nitriles lab technician. When interpretation is complete, results can be found under [facility]. /ivone/ TAMANNA ALLEN Signed: 05/13/2023 11:25 ABDIFATAH YOON [facility]
--- OUTSIDE RECORDS SUMMARY | 2024-03-02 08:56 | XMS_ITS | Continuity of Care Document ---
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 Role Phone [facility] Unavailable Unavailable Problems Combined list of problems [...] DELONG Comment: PtDeejay Flanagans GEN SURG al [facility]OU Acute bronchitis Active Condition May 14, 2022 Entered By: BOY DELONG Comment: Seen SPOPC MAR 29: Dx Bronchitis; Rx'd Abx;May 14, 2022 Entered By: BOY DELONG Comment: CXR, MAR 29 No Acute Cardio-Pulmo Disease;Apr 05, 2022 Entered By: BOY DELONG Comment: Still Has Reactive Cough (after finishing abx); Tx Symptomatically Mar Entered By: BOY DELONG Comment: CT, Thorax MAY 27 at [facility]:May 21, 2022 Entered By: BOY DELONG Comment: No Acute Pumo Processes; Some Atelectasis Present;May 21, 2022 Entered By: BOY DELONG Comment: Some Mild Interstial Thickening RML & LingulaMay 21, 2022 Entered By: BOY DELONG Comment: He Declines PULMO Consult as of MAY 27: May Choose To Go Later MAN[facility]OU Ambulatory ECG normal Active Condition Oct 20, 2022 Entered By: BOY DELONG Comment: EKG, OCT 27: NSR (has chest wall pain)Jun 02, 2023 Entered By: BOY DELONG Comment: ECHO (TTE) MAY 28: EF 60%; Mild LVH, Moderate Pulmonic Regurg;Jan 06, 2024 Entered By: BOY DELONG Comment: +Aortic Sclerosis; But, w/o Stenosis MANITOU Benign hypertension Active Condition Apr 28, 2023 Entered By: BOY DELONG Comment: US, Carotids APR 30: No Hemodynamically Signif StenosisApr 2023 Entered By: BOY DELONG Comment: US, Aorta APR 30: no AAA [facility] Chronic cough Active Condition Jan Entered By: BOY DELONG Comment: Some Associ SOB; CT Thorax, JAN 28: No Signs ILD or Pulmo FibrosissNov 2023 Entered By: BOY DELONG Comment: CT, Thorax [facility] JAN 28: Neg Signs of Interstitial Lung DiseaseNov 2023 Entered By: BOY DELONG Comment: Maxilo-Fac CT Mart JAN 28: Minimal Ethmoid/Maxillary Mucosal Thickening MAN[facility]OU Dyspnea Active Condition Mar 27 Entered By: [...] Findings c/w Post - Inflamm/Infectiou s Etio MAN[facility]OU Femoral acetabular impingement Active Condition Jun 10, 2023 Entered By: BOY DELONG Comment: R Side MAN[facility]OU Foot pain Active Condition Oct 16 Entered By: BOY DELONG Comment: Bilat Plantar Fasciitis; Bilat Pes Planus MAN[facility]OU Gout Active Condition Jan 05 Entered By: BOY DELONG Comment: See PM&R Addendum Note Dated NOV 28; +Crystal on Aspiration L KneeSep 2023 Entered By: BOY DELONG Comment: Rx Colchicine; Check Ur Acid at Time of Next Routine LabsSep 2023 Entered By: BOY DELONG Comment: Ur Acid Historically WNL per Labs at [facility] Housing insecurity Active Condition [facility] Hyperglycemia Active Condition Jun Entered By: BOY DELONG Comment: A1C only 5.8 as of JUN 28 [facility] Low back pain Active Condition Oct Entered By: BOY DELONG Comment: Recurrent x Yrs; Not RadicularSep 2021 Entered By: BOY DELONG Comment: X-Ray, L-Spine NOV 26: Multi-Level Degen Jt. Disease/OASep 2021 Entered By: BOY DELONG Comment: Doing PT NOV 26 [facility] Multiple renal cysts Active Condition Jun 05, 2021 Entered By: BOY DELONG Comment: US, ABD MAY 26: Multiple Benign-Appearing Renal CystsJun 05, 2021 Entered By: BOY DELONG Comment: also; Small Benign Hepatic Lesions [facility] Nocturia Active Condition Mar 27 Entered By: BOY DELONG Comment: Bladder Outlet Syndome; Saw URO approx 2019 [facility] Pain in right hip joint Active Condition Oct 13, 2022 Entered By: BOY DELONG Comment: See X-Ray Report Dated OCT 27 from [facility]: Impingement Syndrome ? [facility] Pain of bilateral knee regions Active Condition Mar 27, 2021 Entered By: BOY DELONG Comment: Bone on Bone OA B/LJan 2021 Entered By: BOY DELONG Comment: PSH: Arthroscopy, L Knee (early s?)Mar 27, 2021 Entered By: OBY DELONG Comment: Gets Knee Inj's via [facility]; last seen ep 2021 Entered By: BOY DELONG Comment: X-Rays, Both Knees NOV 26: Varying Degress of OA B/LApr 2023 Entered By: BOY DELONG Comment: See Med Rehab Note, [facility] Dated MAY 27 and MAY 28Nov 2023 Entered By: BOY DELONG Comment: pending Ortho Eval FEB 27 [facility] Sciatica Active Condition Feb 02 Entered By: BOY DELONG Comment: Degen Arthritis, L-Spine (X Ray Carlin 2021) MAN[facility] Screening for malignant neoplasm of colon done Active Condition Mar 27, 2021 Entered By: BOY DELONG Comment: Screen Colonoscopy 2019; No CRC; +Benign PolypsMar 27, 2021 Entered By: BOY DELONG Comment: repeat 2024 [facility] Diagnosis: ICD-10-CM M54.30 Sciatica, unspecified side Active Diagnosis [facility] Diagnosis: ICD-10-CM M17.0 Bilateral primary osteoarthritis of knee Active Diagnosis [facility] Diagnosis: ICD-10-CM F32.1 Major depressive disorder, single episode, moderate Active [facility] [place] Diagnosis: ICD-10-CM R73.9 Hyperglycemia, unspecified Active Diagnosis [facility] Diagnosis: ICD-10-CM Z59.819 Housing instability, housed unspecified Active Diagnosis [facility] [place] [facility] Diagnosis: ICD-10-CM Z59.811 Housing instability, housed, with risk of homelessness Active Diagnosis [id number] Diagnosis: ICD-10-CM M25.859 Other specified joint disorders, unspecified hip Active Diagnosis [facility] [place] [facility] Diagnosis: ICD-10-CM Z71.89 Other specified counseling Active Diagnosis [facility] Diagnosis: ICD-10-CM M25.561 Pain in right knee [facility] Diagnosis: ICD-10-CM I48.11 Longstanding persistent atrial fibrillation Active Diagnosis [facility] Diagnosis: ICD-10-CM I10 Essential (primary) hypertension Active [facility] Diagnosis: ICD-10-CM M16.11 Unilateral primary osteoarthritis, right hip Active [facility] Diagnosis: ICD-10-CM M25.551 Pain in right hip Active Diagnosis [facility] [place] [facility] [facility] Diagnosis: ICD-10-CM R07.9 Chest pain, unspecified Active Diagnosis [facility] Diagnosis: ICD-10-CM Z13.6 Encounter for screening for cardiovascular disorders Active Diagnosis [facility] Diagnosis: ICD-10-CM M79.651 Pain in right thigh Active Diagnosis [facility] Medications Combined list of outpatient medications from Department of Defense and [facility] Affairs facilities.Medications provided include 1) outpatient medications from the last 15 months, and 2) patient-reported medications. Medication Details Route Status Patient Instructions Prescription Expires Prescription Number Last Dispense Date Ordering Provider Order Date Order Qty Source ALBUTEROL 90MCG/ACTUA T (CFC-F) INHL,ORAL,8 .5GM DOSE COUNTER INHALE 1 PUFF BY MOUTH ONCE DAILY NEEDED FOR BRONCHOS PASM RESPIR ATORY (INHAL ATION) ACTIVE 06/10/2024 [id number] BENNY DELONG 2023 1 [place] AMLODIPINE BESYLATE 10MG TAB TAKE ONE TABLET BY MOUTH ONCE DAILY FOR BLOOD PRESSURE /HEART, DO NOT TAKE WITH GRAPEFRU IT JUICE ORAL ACTIVE 01/06/2025 [id number] BENNY DELONG 2023 90 [place] AMLODIPINE BESYLATE 10MG TAB TAKE ONE TABLET BY MOUTH ONCE DAILY FOR BLOOD PRESSURE /HEART, DO NOT TAKE WITH GRAPEFRU IT JUICE ORAL DISCONT INUED 04/04/2024 [id number] BENNY DELONG 2023 90 [place] AMLODIPINE BESYLATE 10MG TAB TAKE ONE TABLET BY MOUTH ONCE DAILY FOR BLOOD PRESSURE /HEART, DO NOT TAKE WITH GRAPEFRU IT JUICE ORAL DISCONT INUED 12/15/2023 [id number] BENNY DELONG 2022 90 [place] CELECOXIB 200MG CAP TAKE ONE CAPSULE BY MOUTH TWICE DAILY NEEDED FOR RHEUMATO ID ARTHRITI S ORAL ACTIVE 08/09/2024 [id number] BENNY DELONG 2023 60 [facility] CETIRIZINE HCL 10MG TAB TAKE TWO TABLETS BY MOUTH ONCE DAILY FOR ALLERGIE S ORAL ACTIVE 02/03/2025 [id number] BENNY DELONG 2023 60 [place] [...] TABLETS PER 30 DAYS] ORAL ACTIVE 12/27/2024 [id number] BENNY DELONG 2023 6 [place] [...] PER 30 DAYS] ORAL DISCONT INUED 11/23/2024 [id number] BENNY DELONG 2023 6 [place] DOXEPIN 3MG TAB TAKE ONE TABLET BY MOUTH AT BEDTIME NEEDED FOR INSOMNIA ORAL ACTIVE 09/09/2024 [id number] ASHOK MARION 2023 30 [facility] HYALURONATE NA (DUROLANE) 20MG/ML INJ,SYRINGE ,3ML INJECT 60MG INTRA-AR TICULAR ONE TIME OSTEOART HRITIS OF THE KNEE INTRA- ARTICU LAR ACTIVE 04/01/2024 [id number] JAM MCFADDEN 2023 2 [facility] HYDROCHLORO THIAZIDE 25MG TAB TAKE ONE-HALF TABLET BY MOUTH ONCE DAILY ORAL ACTIVE 01/06/2025 [id number] 4 BENNY DELONG 2023 45 [place] HYDROCHLORO THIAZIDE 25MG TAB TAKE ONE-HALF TABLET BY MOUTH ONCE DAILY ORAL DISCONT INUED 04/04/2024 [id number] 4 BENNY DELONG 2023 45 [place] HYDROCHLORO THIAZIDE 25MG TAB TAKE ONE-HALF TABLET BY MOUTH ONCE DAILY ORAL DISCONT INUED 12/15/2023 [id number] BENNY DELONG 2022 45 [place] LORATADINE 10MG TAB TAKE ONE TABLET BY MOUTH ONCE DAILY FOR ALLERGY ORAL DISCONT INUED BY PROVIDE R 06/10/2024 [id number] BENNY DELONG 2023 30 [place] LOSARTAN 25MG TAB TAKE ONE TABLET BY MOUTH ONCE DAILY FOR BLOOD PRESSURE /HEART ORAL ACTIVE 04/05/2024 [id number] BENNY DELONG 2023 90 [place] LOSARTAN 25MG TAB TAKE ONE TABLET BY MOUTH ONCE DAILY FOR BLOOD PRESSURE /HEART ORAL DISCONT INUED 09/08/2023 [id number] 4 BENNY DELONG 2023 90 [place] LOSARTAN 25MG TAB TAKE ONE TABLET BY MOUTH ONCE DAILY FOR BLOOD PRESSURE /HEART ORAL DISCONT INUED 08/22/2023 [id number] BALJEETBENNY HN 2023 90 [facility] LOSARTAN 25MG TAB TAKE ONE TABLET BY MOUTH ONCE DAILY FOR BLOOD PRESSURE /HEART ORAL DISCONT INUED 04/04/2024 [id number] DELONGBENNY HN 2023 30 [place] MULTIVITAMI NS CAP/TAB TAKE 1 TABLET BY MOUTH ONCE DAILY FOR VITAMIN SUPPLEME NTATION ORAL ACTIVE 10/28/2024 [id number] 4 ASHOK MARION 2023 100 [facility] SERTRALINE HCL 100MG TAB TAKE ONE-HALF TABLET BY MOUTH ONCE DAILY FOR MAJOR DEPRESSI VE DISORDER ORAL ACTIVE 10/28/2024 [id number] ASHOK MARION 2023 45 [facility] SERTRALINE HCL 100MG TAB TAKE ONE-HALF TABLET BY MOUTH ONCE DAILY FOR MAJOR DEPRESSI VE DISORDER ORAL DISCONT INUED (EDIT) 09/09/2024 [id number] ASHOK MARION 2023 15 [facility] SERTRALINE HCL 50MG TAB TAKE ONE-HALF TABLET BY MOUTH ONCE DAILY FOR MAJOR DEPRESSI VE DISORDER ORAL DISCONT INUED (EDIT) 08/05/2024 [id number] ASHOK MARION 2023 15 [facility] SILDENAFIL CITRATE [...] TABLET AT ONE TIME ORAL ACTIVE 07/25/2024 [id number] BENNY DELONG 2023 6 [place] Immunizations Combined list of available immunizations from the Department of Defense and Veterans Affairs facilities. Immunization Series Date Given Administered By Site Reaction Lot Number CVX Code Drug Technical System Analyst Status Comments Source INFLUENZA, HIGH-DOSE, TRIVALENT, PF 2023 KATHLEEN WOO LEFT DELTO ID [id number] A 135 complet ed [place] INFLUENZA, INJECTABLE, QUADRIVALENT, PRESERVATIVE FREE 2022 KATHLEEN WOON F LEFT DELTO ID [id number] A 150 complet ed [place] INFLUENZA, INJECTABLE, QUADRIVALENT, PRESERVATIVE FREE 2021 150 complet ed [place] COVID-19 (PFIZER), MRNA, LNP-S, PF, 30 MCG/0.3 ML DOSE 3 2020 208 complet ed [facility] COVID-19 (PFIZER), MRNA, LNP-S, PF, 30 MCG/0.3 ML DOSE 2 2020 208 complet ed [facility] COVID-19 (PFIZER), MRNA, LNP-S, PF, 30 MCG/0.3 ML DOSE 1 2020 208 complet ed [facility] [place] [facility] Results Combined list of recent chemistry, hematology and other laboratory results from Department of Defense and Veterans Affairs, ranging from 15 months to all on record, depending upon the facility. Order Name Results Value Reference Range Date Interpretation Specimen Comments Source HLA-B27 (QU) HLA-B27 [PRESENCE] Negative 02/15 Specimen Type: BLOOD Comment: Test Performed by [facility], [address] [place] [address] Rajesh Doss M.D., Ph.D., Director of Laboratorie s , CLIA [id number] TEST PERFORMED AT: , Ordering Provider: BOY DELONG Report Released Date/Time: Feb 03, 2024 03:52 PM Reporting Lab: [facility] [address] Performing Lab: [facility] [address] [address] [place] RHEUMATO ID FACTOR RHEUMATOID FACTOR [UNITS/VOL UME] IN SERUM BY NEPHELOMET RY <15 0 - 15 02/15 Specimen Type: SERUM No comment entered. Ordering Provider: BOY DELONG Report Released Date/Time: Feb 03, 2024 03:52 PM Reporting Lab: [facility] [address] [facility] [address] Performing Lab: [facility] [address] [facility] [address] [place] MICHA SCREEN/T ITER NUCLEAR AB [PRESENCE] IN SERUM NEG NEG <1:40 - 140 02/15 Specimen Type: SERUM Comment: 2+ Cytoplasmic staining observed. Ordering Provider: BOY DELONG Report Released Date/Time: Feb 03, 2024 03:52 PM Reporting [facility]: [facility] [address] [address] Performing Lab: [facility] [address] [facility] [address] [place] C REACTIVE PROTEIN HS (WROX) C REACTIVE PROTEIN [MASS/VOLU ME] IN SERUM OR PLASMA BY HIGH SENSITIVIT Y METHOD 6.46 mg/L 02/15 Specimen Type: SERUM Comment: Reference range changed on 08/25/10 [facility] reference ranges for ages >17 years: hsCRP in mg/L Risk According to AHA/CDC Guidelines <1.0 Lower relative cardiovascu lar risk. 1.0-3.0 Average cardiovascu lar risk. 3.1-10.0 Higher cardiovascu lar risk. Consider retesting in two weeks to exclude a benign transient elevation in the baseline CRP value secondary to infection or inflammatio n. >10.0 Persistent elevation, upon retesting, may be associated with infection and inflammatio n. Ordering Provider: BOY DELONG Report Released Date/Time: Feb 03, 2024 03:52 PM Reporting Lab: [address] [address] Performing Lab: [facility] [place] [facility] [address] [facility] [address] [place] SED RATE, AUTOMATE D ERYTHROCYT E SEDIMENTAT ION RATE BY WESTERGREN METHOD 3 mm/h 0 - 20 02/15 Specimen Type: BLOOD No comment entered. Ordering Provider: BOY DELONG Report Released Date/Time: Feb 03, 2024 03:52 PM Reporting Lab: [facility] [place] [facility] [address] [facility] [address] Performing Lab: [facility] [place] [facility] [address] [facility] [address] [place] MICROALB UMIN CREATINI NE RATIO PANEL MICROALBUM IN/CREATIN INE [MASS RATIO] IN URINE 13.8 mg/g 0 - 29.9 01/05 Specimen Type: URINE No comment entered. Ordering Provider: BOY DELONG Report Released Date/Time: Nov 23, 2023 08:33 AM Reporting Lab: [facility] [address] [facility] [address] Performing Lab: [facility] [address] [facility] [address] [place] MICROALB UMIN CREATINI NE RATIO PANEL MICROALBUM IN [MASS/VOLU ME] IN URINE 2.5 mg/dL 01/05 Specimen Type: URINE No comment entered. Ordering Provider: BOY DELONG Report Released Date/Time: Nov 23, 2023 08:33 AM Reporting Lab: [facility] [place] [facility] [address] [facility] [address] Performing Lab: [facility] [address] [facility] [address] [place] MICROALB UMIN CREATINI NE RATIO PANEL CREATININE [MASS/VOLU ME] IN URINE 180.82 mg/dL 01/05 Specimen Type: URINE No comment entered. Ordering Provider: BOY DELONG Report Released Date/Time: Nov 23, 2023 08:33 AM Reporting Lab: [facility]PUSTRN [facility] [address] [facility] [address] Performing Lab: [facility] [address] [facility] [address] [place] URINALYS IS COLOR OF URINE Light-Ye llow 01/05 Specimen Type: URINE Comment: If Glucose = >500 and Ketones are positive, please alert the Physician. Ordering Provider: BOY DELONG Report Released Date/Time: Nov 23, 2023 08:33 AM Reporting Lab: [facility] [address] [address] Performing [facility]: [facility] [address] [address] [place] URINALYS IS APPEARANCE OF URINE Clear 01/05 Specimen Type: URINE Comment: If Glucose = >500 and Ketones are positive, please alert the Physician. Ordering Provider: BOY DELONG Report Released Date/Time: Nov 23, 2023 08:33 AM Reporting Lab: [facility] [address] [address] Performing Lab: [facility] [address] [place] URINALYS IS GLUCOSE [MASS/VOLU ME] IN URINE Normalmg /dL 01/05 Specimen Type: URINE Comment: If Glucose = >500 and Ketones are positive, please alert the Physician. Ordering Provider: BOY DELONG Report Released Date/Time: Nov 23, 2023 08:33 AM Reporting Lab: [facility] [address] Performing Lab: [facility] [address] [address] [place] URINALYS IS KETONES [MASS/VOLU ME] IN URINE BY TEST STRIP NEGATIVE mg/dL 01/05 Specimen Type: URINE Comment: If Glucose = >500 and Ketones are positive, please alert the Physician. Ordering Provider: BOY DELONG Report Released Date/Time: Nov 23, 2023 08:33 AM Reporting Lab: [facility] [address] Performing Lab: [facility] [address] [place] URINALYS IS ERYTHROCYT ES [PRESENCE] IN URINE SEDIMENT BY LIGHT MICROSCOPY NEGATIVE mg/dL 01/05 Specimen Type: URINE Comment: If Glucose = >500 and Ketones are positive, please alert the Physician. Ordering Provider: BOY DELONG Report Released Date/Time: Nov 23, 2023 08:33 AM Reporting Lab: [address] [address] Performing Lab: [facility] [address] [address] [place] URINALYS IS PROTEIN [MASS/VOLU ME] IN URINE BY TEST STRIP 10 mg/dL 01/05 Specimen Type: URINE Comment: If Glucose = >500 and Ketones are positive, please alert the Physician. Ordering Provider: BOY DELONG Report Released Date/Time: Nov 23, 2023 08:33 AM Reporting Lab: [address] [address] Performing Lab: [facility] [address] [address] [place] URINALYS IS NITRITE [PRESENCE] IN URINE NEGATIVE mg/dL 01/05 Specimen Type: URINE Comment: If Glucose = >500 and Ketones are positive, please alert the Physician. Ordering Provider: BOY DELONG Report Released Date/Time: Nov 23, 2023 08:33 AM Reporting Lab: [address] [address] Performing Lab: [address] [address] [place] URINALYS IS BILIRUBIN. TOTAL [PRESENCE] IN URINE NEGATIVE mg/dL 01/05 Specimen Type: URINE Comment: If Glucose = >500 and Ketones are positive, please alert the Physician. Ordering Provider: BOY DELONG Report Released Date/Time: Nov 23, 2023 08:33 AM Reporting Lab: [address] [address] Performing Lab: [address] [place] [address] [place] URINALYS IS SPECIFIC GRAVITY OF URINE BY REFRACTOME TRY 1.024 1.016 - 1.022 01/05 H Specimen Type: URINE Comment: If Glucose = >500 and Ketones are positive, please alert the Physician. Ordering Provider: BOY DELONG Report Released Date/Time: Nov 23, 2023 08:33 AM Reporting Lab: [address] [address] Performing Lab: [address] [address] [place] URINALYS IS PH OF URINE BY TEST STRIP 5.5 5.0 - 9.0 01/05 Specimen Type: URINE Comment: If Glucose = >500 and Ketones are positive, please alert the Physician. Ordering Provider: BOY DELONG Report Released Date/Time: Nov 23, 2023 08:33 AM Reporting Lab: [address] [address] Performing Lab: [address] [address] [place] URINALYS IS UROBILINOG EN [MASS/VOLU ME] IN URINE BY TEST STRIP Normalmg /dL <2.0 - 2.0 01/05 Specimen Type: URINE Comment: If Glucose = >500 and Ketones are positive, please alert the Physician. Ordering Provider: BOY DELONG Report Released Date/Time: Nov 23, 2023 08:33 AM Reporting Lab: [address] [address] Performing Lab: [address] [address] [place] URINALYS IS LEUKOCYTE ESTERASE [PRESENCE] IN URINE BY TEST STRIP NEGATIVE 01/05 Specimen Type: URINE Comment: If Glucose = >500 and Ketones are positive, please alert the Physician. Ordering Provider: BOY DELONG Report Released Date/Time: Nov 23, 2023 08:33 AM Reporting Lab: [place] [id number] Performing Lab: [facility] [place] [facility] [address] [facility] [address] [place] URIC ACID URATE [MASS/VOLU ME] IN SERUM OR PLASMA 5.7 mg/dL 3.5 - 7.2 01/05 Specimen Type: SERUM No comment entered. Ordering Provider: BOY DELONG Report Released Date/Time: Nov 23, 2023 08:33 AM Reporting Lab: [facility] [place] [facility] [address] [facility] [address] Performing Lab: [facility] [address] [facility] [address] [place] CALCIUM CALCIUM [MASS/VOLU ME] IN SERUM OR PLASMA 9.0 mg/dL 8.5 - 10.2 01/05 Specimen Type: SERUM No comment entered. Ordering Provider: BOY DELONG Report Released Date/Time: Nov 23, 2023 08:33 AM Reporting Lab: [facility] [place] [facility] [address] [facility] [address] Performing Lab: [facility] [place] [address] [address] [place] BASIC METABOLI C PANEL (fasting ) UREA NITROGEN [MASS/VOLU ME] IN SERUM OR PLASMA 18 mg/dL 7 - 25 01/05 Specimen Type: SERUM No comment entered. Ordering Provider: BOY DELONG Report Released Date/Time: Nov 23, 2023 08:33 AM Reporting Lab: [facility] [place] [facility] [address] [facility] [address] Performing Lab: [facility] [place] [address] [address] [place] BASIC METABOLI C PANEL (fasting ) GLUCOSE [MASS/VOLU ME] IN SERUM OR PLASMA 108 mg/dL 65 - 100 01/05 H Specimen Type: SERUM No comment entered. Ordering Provider: BOY DELONG Report Released Date/Time: Nov 23, 2023 08:33 AM Reporting Lab: [facility] [place] [address] [address] Performing Lab: [facility] [place] [facility] [address] [facility] [address] [place] BASIC METABOLI C PANEL (fasting ) SODIUM [MOLES/VOL UME] IN SERUM OR PLASMA 140 mmol/L 135 - 145 01/05 Specimen Type: SERUM No comment entered. Ordering Provider: BOY DELONG Report Released Date/Time: Nov 23, 2023 08:33 AM Reporting Lab: [facility] [address] [facility] [address] Per[facility]: [facility] [address] [facility] [address] [place] BASIC METABOLI C PANEL (fasting ) POTASSIUM [MOLES/VOL UME] IN SERUM OR PLASMA 3.9 mmol/L 3.5 - 5.0 01/05 Specimen Type: SERUM No comment entered. Ordering Provider: BOY DELONG Report Released Date/Time: Nov 23, 2023 08:33 AM Reporting Lab: [address] [address] Performing Lab: [address] [address] [place] BASIC METABOLI C PANEL (fasting ) CHLORIDE [MOLES/VOL UME] IN SERUM OR PLASMA 111 mmol/L 100 - 110 01/05 H Specimen Type: SERUM No comment entered. Ordering Provider: BOY DELONG Report Released Date/Time: Nov 23, 2023 08:33 AM Reporting Lab: [facility] [address] [facility] [address] [facility]: [facility] [address] [address] [employer] LD BASIC METABOLI C PANEL (fasting ) CARBON DIOXIDE, TOTAL [MOLES/VOL UME] IN SERUM OR PLASMA 21 meq/L 20 - 30 01/05 Specimen Type: SERUM No comment entered. Ordering Provider: BOY DELONG Report Released Date/Time: Nov 23, 2023 08:33 AM Reporting Lab: [address] [address] Performing [facility]: [facility] [address] [facility] [address] [employer] BASIC METABOLI C PANEL (fasting ) CREATININE [MASS/VOLU ME] IN SERUM OR PLASMA 1.13 mg/dL 0.50 - 1.40 01/05 Specimen Type: SERUM No comment entered. Ordering Provider: BOY DELONG Report Released Date/Time: Nov 23, 2023 08:33 AM Reporting Lab: [facility] [address] [facility] [address] Performing Lab: [facility] [address] [facility] [address] [employer] BASIC METABOLI C PANEL (fasting ) GLOMERULAR FILTRATION RATE/1.73 SQ M.PREDICTE D [VOLUME RATE/AREA] IN SERUM, PLASMA OR BLOOD BY CREATININE -BASED FORMULA (CKD-EPI 2020) 74 mL/min 60 01/05 Specimen Type: SERUM No comment entered. Ordering Provider: BOY DELONG Report Released Date/Time: Nov 23, 2023 08:33 AM Reporting Lab: [facility] [address] [facility] [address] Performing Lab: [facility] [address] [facility] [address] [employer]write Vital Signs Combined list of inpatient and outpatient Vital Signs from Department of Defense and Veterans Affairs, ranging from 12 months to all on record, depending upon the facility. Vital Sign Value Date Comments Source SYSTOLIC BLOOD PRESSURE 130 02/03/20 15:58:31 [facility] DIASTOLIC BLOOD PRESSURE 88 024 15:58:31 [facility] WEIGHT 245.6 02/03/2024 15:58:31 [facility] BMI 33kg/m2 02/03/2024 15:58:31 [facility] PAIN 1 02/03/2024 15:58:31 [facility] HEIGHT 72 02/03/2024 15:58:31 [facility] PULSE 78 02/03/2024 15:58:31 [facility] RESPIRATION 20 02/03/2024 15:58:31 [facility] SYSTOLIC BLOOD PRESSURE 124 01/13/20 24 13:11:51 [facility] DIASTOLIC BLOOD PRESSURE 70 11/08/2 024 13:11:51 [facility] PAIN 3 01/13/2024 13:11:51 [facility] SYSTOLIC BLOOD PRESSURE 101 01/06/20 24 10:15:06 [facility] DIASTOLIC BLOOD PRESSURE 80 024 10:15:06 [facility] PULSE OXIMETRY 95 01/06/2024 10:15:06 [facility] WEIGHT 244 01/06/2024 10:15:06 [facility] BMI 33kg/m2 01/06/2024 10:15:06 [facility] TEMPERATURE 97 01/06/2024 10:15:06 [facility] PULSE 76 01/06/2024 10:15:06 [facility] RESPIRATION 18 01/06/2024 10:15:06 [facility] SYSTOLIC BLOOD PRESSURE 134 06/10/19 24 11:37:12 [facility] DIASTOLIC BLOOD PRESSURE 84 024 11:37:12 [facility] WEIGHT 239.4 06/10/2023 11:37:12 [facility] BMI 33kg/m2 06/10/2023 11:37:12 [facility] TEMPERATURE 96.8 06/10/2023 11:37:12 [facility] PULSE 73 06/10/2023 11:37:12 [facility] SYSTOLIC BLOOD PRESSURE 130 05/23/19 24 07:41:32 [facility] DIASTOLIC BLOOD PRESSURE [...] ADM Date DC Date Status Disposition Source [facility] LD OFF/OP EST JULY X REQ PHY/QHP [id number] Diagnos is: ICD-10- CM M79.651 Pain in right thigh<b r/> KARLOS JUSTICE IC K 08/31 [facility] Out[facility] Encounter [id number] 08/31 [facility] Encounter [id number] 09/29 [facility] [place] OFF/OP EST MAY X REQ PHY/QHP [id number] [id number] Diagnos is: ICD-10- CM M25.551 Pain in right hip<br/ > RESHMA,ER IC K 09/29 [place] [facility] Out[facility] Encounter [id number] 10/08 [facility] Encounter [id number] 10/08 [facility] Outpatient Encounter [id number] 10/11 [facility] Outpatient Encounter [id number] 10/11 [facility] Out[facility]counter [id number] 10/18 [facility] Out[facility] Encounter [id number] 10/19 [facility] [place] OFF/OP EST MAY X REQ PHY/QHP [id number] [id number] Diagnos is: ICD-10- CM R07.9 Chest pain, unspeci fied
RESHMA,ER IC K 10/20 [place] [facility] Out[facility] Encounter [id number] 10/20 [facility] DIOGRAM REPORT [id number] Diagnos is: ICD-10- CM Z13.6 Encount er for screeni ng for cardiov ascular disorde rs
ROCÍO BAEZ 10/20 [facility] [place] OFFICE O/P EST MOD 30-39 MIN [id number] Diagnos is: ICD-10- CM R07.9 Chest pain, unspeci fied
JILL DELONG N 10/20 [place] [facility] Outpatient Encounter [id number] 12/02 [facility] OFFICE O/P EST LOW 20-29 MIN [id number] Diagnos is: ICD-10- CM M16.11 Unilate ral primary osteoar thritis , right hip<br/ > Karlos MCFADDEN 12/07 [facility] Outpatient Encounter [id number] 12/10 [facility] Outpatient Encounter [id number] 12/10 [facility] Outpatient Encounter [id number] 12/14 [facility] OFF[facility] O/P EST MOD 30-39 MIN [id number] Diagnos is: ICD-10- CM I10 Essenti al (primar y) hyperte nsion<b r/> JILL DELONG 12/14 [place] [facility] Outpatient Encounter [id number] 12/27 [facility] [place] OFF/OP EST JULY X REQ PHY/QHP [id number] Diagnos is: ICD-10- CM I10 Essenti al (primar y) hyperte nsion<b r/> STEFANO GOMEZ Y N 01/07 [place] [facility] OFFICE O/P EST HI 40-54 MIN [id number] Diagnos is: ICD-10- CM M25.551 Pain in right hip<br/ > SONI SMITH THI 02/02 [facility] En[facility] [id number] 02/02 [facility] Out[facility] Encounter [id number] 02/04 [facility] Out[facility] Encounter [id number] 03/01 [facility] OFFICE O/P EST LOW 20 MIN [id number] Diagnos is: ICD-10- CM M16.11 Unilate ral primary osteoar thritis , right hip<br/ > Karlos MCFADDEN 04/01 [facility] QNHP OL DIG ASSMT&MGMT 01-24 [id number] Diagnos is: ICD-10- CM M17.0 Bilater al primary osteoar thritis of knee
CRISSY BYRNE 04/01 [facility] Out[facility] Encounter [id number] LAURABLAKELY 04/04 [facility] OFFICE O/P EST LOW 20 MIN [id number] Diagnos is: ICD-10- CM I10 Essenti al (primar y) hyperte nsion<b r/> JILL DELONG Haydee 04/04 [place] [facility] Outpatient Encounter [id number] 04/15 [facility] TTE W/DOPPLER COMPLETE [id number] Diagnos is: ICD-10- CM I10 Essenti al (primar y) hyperte nsion<b r/> ABDIFATAH YOON 05/12 [facility] TTE W/DOPPLER COMPLETE [id number] Diagnos is: ICD-10- CM I48.11 Longsta nding persist ent atrial fibrill ation<b r/> Leandro BYRNES 05/15 [facility] OFFICE O/P EST LOW 20 MIN [id number] Diagnos is: ICD-10- CM M25.561 Pain in right knee
Karlos MCFADDEN 05/22 [facility] Outpatient Encounter [id number] 05/22 [facility] Outpatient Encounter [id number] 06/01 [facility] OFFICE O/P EST MOD 30 MIN [id number] [id number] Diagnos is: ICD-10- CM R73.9 Hypergl ycemia, unspeci fied
JILL DELONG N 06/09 [facility] Outpatient Encounter [id number] 06/09 [facility] [place] Outpatient Encounter [id number] 06/16 [facility] X REQ PHY/QHP [id number] [id number] Diagnos is: ICD-10- CM Z71.89 Other specifi ed summer counselor ing<br/ > GABI TUCKER 06/20 [facility] OFFICE O/P EST LOW 20 MIN [id number] Diagnos is: ICD-10- CM M25.859 Other specifi ed joint disorde rs, unspeci fied hip<br/ > Karlos MCFADDEN 06/23 [facility] Outpatient Encounter [id number] 07/04 [facility] Outpatient Encounter [id number] 07/17 [facility] [place] PSYCH DIAGNOSTIC EVALUATION [id number] [id number] Diagnos is: ICD-10- CM F32.1 Major depress jonny disorde r, single episode , moderat e
LJ ASHLEY [facility] [id number] Diagnos is: ICD-10- CM M17.0 Bilater al primary osteoar thritis of knee
ABIMAEL CALL 08/02 [facility] MTMS BY PHARM ADDL 15 MIN [id number] Diagnos is: ICD-10- CM F32.1 Major depress jonny disorde r, single episode , moderat e
ASHOK MARION 08/04 [facility] En[facility] [id number] 08/04 [facility] Out[facility] Encounter [id number] 08/07 [facility] Out[facility] Encounter [id number] 08/09 [facility] Out[facility] Encounter [id number] 08/10 [facility] Out[facility] Encounter [id number] 08/11 [facility] SELF CARE MNGMENT TRAINING [id number] [id number] Diagnos is: ICD-10- CM M17.0 Bilater al primary osteoar thritis of knee
ABIMAEL CALL 08/18 [place] [facility] Out[facility] Encounter [id number] 09/01 [facility] Encounter [id number] 09/01 [facility] Out[facility] Encounter [id number] 09/05 [facility] MTMS BY PHARM ADDL 15 MIN [id number] Diagnos is: ICD-10- CM F32.1 Major depress jonny disorde r, single episode , moderat e
ASHOK MARION 09/08 [facility] En[facility] [id number] 09/20 [facility] Encounter [id number] 10/06 [facility] Out[facility] Encounter [id number] 10/13 [facility] Out[facility]counter [id number] 10/13 [facility] Out[facility]counter [id number] 10/13 [facility] Out[facility] Encounter [id number] 10/18 [facility] Out[facility] Encounter [id number] 10/20 [facility] Out[facility] Encounter [id number] 10/23 [facility] ([id number] HC PRO PHONE CALL 5-10 MIN [id number] Diagnos is: ICD-10- CM Z59.811 Housing instabi lity, housed, with risk of homeles sness<b r/> DIAMOND DREW 10/25 [facility][id number] Outpatient Encounter [id number] 10/26 [facility] MTMS BY PHARM ADDL 15 MIN [id number] 1. Diagnos is: ICD-10- CM F32.1 Major depress jonny disorde r, single episode , moderat e
ASHOK MARION 10/27 [facility] PT EDUCATION NOC INDIVID [id number] Diagnos is: ICD-10- CM Z59.819 Housing instabi lity, housed unspeci fied
KRISTA HESS 10/27 [facility] Out[facility] Encounter [id number]/10 [facility] Out[facility] Encounter [id number] 1.11/10 [facility] Outpatient Encounter [id number] [facility] Out[facility] Encounter [id number] 1.11/16 [facility] OFFICE O/P EST LOW 20 MIN [id number] Diagnos is: ICD-10- CM M17.0 Bilater al primary osteoar thritis of knee
Karlos MCFADDEN 11/16 [facility] Out[facility] En[facility] [id number] 11/16 [facility] Out[facility] Encounter [id number] 11/22 [facility] Outpatient Encounter [id number] 12/01 [facility] HC PRO PHONE CALL 5-10 MIN [id number] Diagnos is: ICD-10- CM Z59.819 Housing instabi lity, housed unspeci fied
DESHAWNKRISTA JOSEPH 12/06 [facility] Out[facility] En[facility] [id number] 12/25 [facility] HC PRO PHONE CALL 5-10 MIN [id number] Diagnos is: ICD-10- CM Z59.819 Housing instabi nishi, housed unspeci fied
DESHAWNKRISTA JOSEPH 01/02 [facility] Out[facility] Encounter [id number] RA MIRTHA BLUM 01/04 [facility] OFFICE O/P EST MOD 30 MIN [id number] Diagnos is: ICD-10- CM R73.9 Hypergl ycemia, unspeci fied
JILL DELONG 01/05 [place] [facility] MTMS BY PHARM ADDL 15 MIN [id number] Diagnos is: ICD-10- CM F32.1 Major depress jonny disorde r, single episode , moderat e
ASHOK MARION 01/12 [facility] OFFICE O/P EST LOW 20 MIN [id number] Diagnos is: ICD-10- CM M17.0 Bilater al primary osteoar thritis of knee
Karlos MCFADDEN 01/12 [facility] Outpatient Encounter [id number] 01/22 [facility] Outpatient Encounter [id number] 01/23 [facility] [place] OFFICE O/P EST MOD 30 MIN [id number] Diagnos is: ICD-10- CM M54.30 Sciatic a, unspeci fied side
JILL DELONG 02/02 [place] [facility] Outpatient Encounter [id number] 03/01 [facility] Social History Combined list of available smoking, tobacco, and other social history from Department of Defense and Veterans Affairs facilities. Social History Type Response Date Comment Sourc e Tobacco smoking status [facility] VA-TOBACCO NEVER USED 06/10/19 [facility] History of tobacco use PR-TOBACCO NEVER USED 05/14/2022 [facility] History of tobacco use PR-TOBACCO NEVER USED 03/27/2021 [facility] Plan of Care List of future care activities from Department of Veterans Affairs facilities. Additional future care activities may be listed in the Assessment and Plan section. Date/Time Care Activity Care Activity Detail Facili ty 04/06/2024 AMBULATORY - PSYCHIATRY AMBULATORY - PSYC HIATRY [facility] 05/14/2024 AMBULATORY - MEDICINE AMBULATORY - MEDICI [place] [facility] 02/03/2024 Consult Order PHYSICAL THERAPY /SPOPC OUTPT Cons Manager Document's Choice [facility]
--- OUTSIDE RECORDS SUMMARY | 2024-03-02 08:56 | XMS_ITS | Encounter Summary ---
Author Name [facility] [place] [facility] [place] Organization [facility] [place] Address [address] [place] [id number] Care Team Providers Care Administration Professional Name Role Phone BOY DELONG Primary Care [...] OPTUM RX PRESCRIPT ION HEALT H [facility] Mar 07, [address] [facility] [id number] MARGARETH HONG RRYL PATIENT Selected Encounter This section includes the information on record at [place] for the Encounter. Date/Time Encounter Type Encounter Description Reason Provider Source May 16, 2023 02:48 PM TTE W/DOPPLER COMPLETE CARDIAC ECHO ICD-10-CM I48.11 Longstanding persistent atrial fibrillation ZABRINA BYRNES IHRosibel Encounter Template Text not used by [place] Assessments - Encounter Diagnoses This section includes the primary and secondary diagnoses documented for the Encounter. Date/Time Primary/Secondary Diagnosis Diagnosis Name Provider Source May 24, 2023 10:03 AM PRIMARY Longstanding persistent atrial fibrillation DEMETRI DOSHI [facility] Plan of Treatment: Future Appointments (+ [...] The data comes from all [place] treatment [facility]. Appointment Date/Time Appointment Type Appointme nt Facility Name May 23, 2023 07:30 AM AMBULATORY [facility] Jun 10, 2023 11:30 AM AMBULATORY - MEDICINE [facility] Jun 17, 2023 08:00 AM AMBULATORY - PSYCHIATRY [facility] Jun 21, 2023 08:00 AM AMBULATORY - PSYCHIATRY [facility] Jun 24, 2023 11:00 AM AMBULATORY - NONE [facility] Jun 24, 2023 11:30 AM AMBULATORY - REHAB MEDICIN [facility] July 22, 2023 01:00 PM AMBULATORY - PSYCHIATRY [facility] August 03, 2023 08:00 AM AMBULATORY - REHAB MEDICIN [facility] August 05, 2023 09:00 AM AMBULATORY [facility] August 05, 2023 03:00 PM AMBULATORY - PS[facility] Aug 11, 2023 10:40 AM [facility] Aug 19, 2023 10:00 AM AMBULATORY - REHAB MEDICIN [facility] Sep 09, 2023 09:30 AM AMBUL[facility] - [facility] Oct 14, 2023 09:30 AM AMBUL[facility]ORY - PS[facility] Oct 28, 2023 10:00 AM AMBULATORY - PS[facility]AT[facility] Nov 11, 2023 11:00 AM AMBULATORY - PS[facility] Nov 14, 2023 03:00 PM AM[facility]ULATORY - MEDICINE [facility] Lab Results: +/- 30 days of the encounter This section includes the Chemistry and Hematology Lab Results on record with [place] for the patient. Radiology Reports and Pathology Reports are provided separately, in subsequent sections. Lab Results This section contains the Chemistry/Hematology Results that were resulted 30 days before or 30 daysafter the date of the Encounter. Date/Time Source Result Type Result - Unit Interpretation Reference Range Comment Jun 09, 2023 08:32 AM [facility] URINALYSIS Specimen Type: URINE Comment: If Glucose = >500 and Ketones are positive, please alert the Physician. Ordering Provider: BOY DELONG Report Released Date/Time: Dec 14, 2022 10:56 AM Reporting Lab: [address] [address] Performing Lab: [address] [address] UA COLOR Light-Yellow Yellow UA APPEARANCE Clear Clear UA GLUCOSE NEGATIVE mg/dL Negative UA KETONES NEGATIVE mg/dL Negative UA BLOOD NEGATIVE mg/dL Negative UA PROTEIN NEGATIVE mg/dL Negative UA NITRITE NEGATIVE mg/dL Negative UA BILIRUBIN NEGATIVE mg/dL Negative UA SPECIFIC GRAVITY 1.015 L 1.016-1.02 2 UA pH 5.5 5.0-9.0 UA UROBILINOGEN <2.0 mg/dL <2.0 UA LEUKOCYTE NEGATIVE Negative Jun 09, 2023 08:32 AM [facility] VITAMIN D (25-OH) Specimen Type: SERUM No comment entered. Ordering Provider: BOY DELONG Report Released Date/Time: Dec 14, 2022 10:56 AM Reporting Lab: [address] [address] Performing Lab: [address] [address] VITAMIN D (25-OH) 21 ng/mL 20-50 Jun 09, 2023 08:32 AM [facility] FERRITIN Specimen Type: SERUM No comment entered. Ordering Provider: BOY DELONG Report Released Date/Time: Dec 14, 2022 10:56 AM Reporting Lab: [address] [address] Performing Lab: [address] [address] FERRITIN 199 ng/mL 20-300 Jun 09, 2023 08:32 AM [facility] VITAMIN B12 Specimen Type: SERUM No comment entered. Ordering Provider: BOY DELONG Report Released Date/Time: Dec 14, 2022 10:56 AM Reporting Lab: [address] [address] Performing Lab: [address] [address] VITAMIN B12 580 pg/mL 200-900 Jun 09, 2023 08:32 AM [facility] HEMOGLOBIN A1C PANEL Specimen Type: BLOOD Comment: [...] Dec 14, 2022 10:56 AM Reporting Lab: [address] [address] Performing Lab: [address] [address] HEMOGLOBIN A1C 5.8 H 4.0-5.6 Jun 09, 2023 08:32 AM [facility] CBC AND DIFF (AUTO) Specimen Type: BLOOD No comment entered. Ordering Provider: BOY DELONG Report Released Date/Time: Dec 14, 2022 10:56 AM Reporting Lab: [address] [address] Performing Lab: [address] [address] WBC 4.38 10*3/uL L 4.50-11.00 RBC 5.42 10*6/uL 4.23-5.66 HGB 15.0 g/dL 12.8-17 HCT 44.9 39.2-50.4 MCV 82.8 fL 82-99 MCHC 33.4 g/dL 30.8-35.1 PLT 265 10*3/uL 140-360 RDW-CV 12.8 12.0-16.0 [place], Abs 0.37 10*3/uL 0.30-1.10 MCH 27.7 pg 26.2-32.6 Neut % 56.0 43.7-75.8 Lymph % 31.7 14.0-42.3 [place] % 8.4 5.1-13.7 Eos % 3.0 0.4-6.8 Baso % 0.7 0.1-2.0 Neut, Abs 2.45 10*3/uL 2.20-7.60 Lymph, Abs 1.39 10*3/uL 1.00-3.20 Eos, Abs 0.13 10*3/uL 0.03-0.44 Baso, Abs 0.03 10*3/uL 0.01-0.13 Immature Gran % 0.2 0.0-0.7 Immature Gran, Abs 0.01 10*3/uL 0.00-0.06 Jun 09, 2023 08:32 AM [facility] RETICULOCYTES Specimen Type: BLOOD No comment entered. Ordering Provider: BOY DELONG Report Released Date/Time: Dec 14, 2022 10:56 AM Reporting Lab: [facility] [address] [address] Performing Lab: [facility] [address] [address] RETIC % 1.1 0.6-2.0 RETIC, ABS 61.8 10*3/uL 30.0-90.0 Ret-He % 31.3 27.9-42.0 Jun 09, 2023 08:32 AM [facility] PSA Specimen Type: SERUM No comment entered. Ordering Provider: BOY DELONG Report Released Date/Time: Dec 14, 2022 10:56 AM Reporting Lab: [facility] [address] [address] Performing Lab: [facility] [address] [address] PSA 2.13 ng/mL 0.00-4.00 Jun 09, 2023 08:32 AM [facility] TSH Specimen Type: SERUM No comment entered. Ordering Provider: BOY DELONG Report Released Date/Time: Dec 14, 2022 10:56 AM Reporting Lab: [facility] [address] [address] Performing Lab: [address] [address] TSH 2.27 u[IU]/mL 0.35-5.00 Jun 09, 2023 08:32 AM [facility] BASIC METABOLIC PANEL (fasting) Specime n Type: SERUM No comment entered. Ordering Provider: BOY DELONG Report Released Date/Time: Dec 14, 2022 10:56 AM Reporting Lab: [facility] [address] [facility] [address] Performing Lab: [facility] [address] [facility] [address] UREA NITROGEN 15 mg/dL 7-25 GLUCOSE 113 mg/dL H 65-100 SODIUM 141 mmol/L 135-145 POTASSIUM 3.9 mmol/L 3.5-5.0 CHLORIDE 108 mmol/L 100-110 CO2 24 meq/L 20-30 CREATININE, Serum 1.17 mg/dL 0.50-1.40 eGFR(CKD-EPI 2020) 71 mL/min >60 Jun 09, 2023 08:32 AM [facility] LIPID PANEL FASTING Specimen Type: SERUM No comment entered. Ordering Provider: BOY DELONG Report Released Date/Time: Dec 14, 2022 10:56 AM Reporting Lab: [facility] [address] [facility] [address] Performing Lab: [facility] [address] [address] CHOLESTEROL 173 mg/dL TRIGLYCERIDE 81 mg/dL 0-150 LDL calculated 118 mg/dL 0-129 CHOL/HDL 4.4 HDL CHOLESTEROL 39 mg/dL L 40-60 Jun 09, 2023 08:32 AM [facility] LIVER FUNCTION Specimen Type: SERUM No comment entered. Ordering Provider: BOY DELONG Report Released Date/Time: Dec 14, 2022 10:56 AM Reporting Lab: [facility] [address] [facility] [address] Performing Lab: [address] [address] PROTEIN,TOTAL 6.9 g/dL 6.0-8.3 ALBUMIN 4.0 g/dL 3.5-5.0 ALKALINE PHOSPHATASE 66 U/L 40-150 AST 19 U/L 5-34 ALT 27 U/L BILIRUBIN, TOTAL 0.5 mg/dL 0.2-1.2 Jun 09, 2023 08:32 AM [facility] CALCIUM Specimen Type: SERUM No comment entered. Ordering Provider: BOY DELONG Report Released Date/Time: Dec 14, 2022 10:56 AM Reporting Lab: [address] [address] Performing Lab: [address] [address] CALCIUM 8.8 mg/dL 8.5-10.2 Jun 09, 2023 08:32 AM [facility] URIC ACID Specimen Type: SERUM No comment entered. Ordering Provider: BOY DELONG Report Released Date/Time: Dec 14, 2022 10:56 AM Reporting Lab: [address] [address] Performing Lab: [address] [address] URIC ACID 5.6 mg/dL 3.5-7.2 Radiology Reports: [...] the Encounter. The data comes from all [facility] facilities. Date/Time Radiology Report Provider Source Apr 22, 2023 12:32 PM NON-INVAS. CAROTID IMAGING: SAMEER HONGVIET REIS [id number] -1960 M Exm Date: APR 22, 2023@12:32 Req Phys: BOY DEOLNG Loc: CWM/SO/PACT 3 WH (Req'g Loc) Img Loc: ULTRASOUND Service: Unknown (Case [id number] COMPLETE) NON-INVAS. CAROTID IMAGING (US Detailed) CPT:92076 Reason for Study: HTN Clinical History: screen Report Status: Verified Date Reported: APR 24, 2023 Date Verified: APR 24, 2023 Hydroblaster E-Sig: Report: NON-INVAS. CAROTID IMAGING HISTORY: Reason for Study: HTN screen. COMPARISON: No prior exams for comparison TECHNIQUE: Duplex imaging of the carotid arteries was performed at the local [place] facility utilizing grayscale, color Doppler and spectral analysis. 31 images were received by the [place] National Teleradiology Program (NTP) for interpretation. FINDINGS: [...] 100 cm/sec READING PHYSICIAN: Lloyd Sanchez M.D. -[id number] 04/23/2023 19:24 [facility] National Teleradiology Program [phone] (For Medical Practitioner Use Only) Attention Patients / Veterans: If you have questions or concerns about these test results, please contact your ordering provider or primary care team. Primary Diagnostic Code: NO ALERT REQUIRED Primary Interpreting Staff: RADIOLOGY,OUTSIDE SERVICE, Staff Physician / RADIOLOGY,OUTSIDE SERVICE [facility] Apr 22, 2023 12:31 PM ULTRASOUND AAA SCREENING: LUPILLO HONG [id number] -1960 M Exm Date: APR 22, 2023@12:31 Req Phys: BOY DELONG Loc: CWM/SO/PACT 3 WH (Req'g Loc) Img Loc: ULTRASOUND Service: Unknown (Case [id number] COMPLETE) ULTRASOUND AAA SCREENING (US Detailed) CPT:84157 Reason for Study: HTN Clinical History: screen Report Status: Verified Date Reported: APR 23, 2023 Date Verified: APR 23, 2023 Hydroblaster E-Sig: Report: ULTRASOUND AAA SCREENING PROVIDED CLINICAL [...] aneurysm identified. READING PHYSICIAN: Lloyd Sanchez M.D. -[id number] 04/23/2023 16:56 [facility] National Teleradiology Program [phone] (For Medical Practitioner Use Only) Attention Patients / Veterans: If you have questions or concerns about these test results, please contact your ordering provider or primary care team. Primary Diagnostic Code: NO ALERT REQUIRED Primary Interpreting Staff: RADIOLOGY,OUTSIDE SERVICE, Staff Physician / RADIOLOGY,OUTSIDE SERVICE [facility] Encounter Notes: All associated encounter notes This section contains the clinical notes associated to the Encounter. Date/Time Encounter Note(s) Provider Source May 16, 2023 02:48 PM CARDIOLOGY CONSULT : LOCAL TITLE: ECHO CONSULT STANDARD TITLE: CARDIOLOGY CONSULT DATE OF NOTE: MAY 16, 2023@14:48 ENTRY DATE: MAY 16, 2023@14:48:51 AUTHOR: Leandro BYRNES COSIGNER: URGENCY: STATUS: COMPLETED Remote echocardiogram read completed. Report available in [employer]. /ivone/ JAMAL STEVENSON Cardiology Attending Signed: 05/16/2023 14:49 JAMAL BYRNES [facility]
--- OUTSIDE RECORDS SUMMARY | 2024-03-02 08:56 | XMS_ITS ---
Author Name [facility] [place] Organization [place] Address [address] [place] [address] Care Team Providers Care Senior Benefits Specialist Name Role Phone BOY DELONG Primary [...] ION HEALT H [place] Mar 07, 2020 [facility] [id number] MARGARETH HONG RRYL PATIENT Selected Encounter This section includes the information on record at [place] for the Encounter. Date/Time Encounter Type Encounter Description Reason Provider Source Apr 04, 2023 11:06 AM Outpatient Encounter TELEPHONE TRIAGE SÁNCHEZ SANCHEZ Rosibel Encounter Template Text not used by [place] [...] 2023 01:30 PM AMBULATORY - MEDICINE [facility] Apr 22, 2023 12:30 PM AMBULATORY - NONE [facility] May 13, 2023 11:00 AM AMBULATORY - NONE [facility] [place] [facility] May 23, 2023 07:30 AM AMBULATORY - REHAB MEDICIN [facility] [place] Jun 10, 2023 11:30 AM [facility] - [facility]IC[facility] Jun 17, 2023 08:00 AM AMBULATORY - PSYCHIATRY [facility] Jun 21, 2023 08:00 AM AMBULATORY - PSYCHIATRY [facility] Jun 24, 2023 11:00 AM AMBULATORY - NONE [facility] [place] [facility] Jun 24, 2023 11:30 AM AMBULATORY - REHAB MEDICIN [facility] [place] [facility] July 22, 2023 01:00 PM AMBULATORY - PSYCHIATRY [facility] August 03, 2023 08:00 AM AMBULATORY - REHAB MEDICIN [facility] August 05, 2023 09:00 AM AMBULATORY - PS[facility]AT[facility] [place] [facility] August 05, 2023 03:00 PM AMBULATORY - PS[facility]IATRY [facility] [place] [facility] Aug 11, 2023 10:40 AM [facility]INE [facility] [place] [facility] Aug 19, 2023 10:00 AM AMBULATORY - REHAB MEDICIN [facility] [place] Sep 09, 2023 09:30 AM AMBULATORY - PS[facility]CHIATRY [facility] [place] Radiology Reports: +/- 30 days [...] the Encounter. The data comes from all [place] treatment [facility]. Date/Time Radiology Report Provider Source Apr 22, 2023 12:32 PM NON-INVAS. CAROTID IMAGING: LUPILLO HONG [id number] -1960 M Exm Date: APR 22, 2023@12:32 Req Phys: BOY DELONG Loc: CWM/SO/PACT 3 WH (Req'g Loc) Img Loc: ULTRASOUND Service: Unknown (Case 460 COMPLETE) NON-INVAS. CAROTID IMAGING (US Detailed) CPT:87096 Reason for Study: HTN Clinical History: screen Report Status: Verified Date Reported: APR 24, 2023 Date Verified: APR 24, 2023 Proctologist E-Sig: Report: NON-INVAS. CAROTID IMAGING HISTORY: Reason for Study: HTN screen. COMPARISON: No prior exams for comparison TECHNIQUE: Duplex imaging of the carotid arteries was performed at the local [place] facility utilizing grayscale, color Doppler and spectral analysis. 31 images were received by the [place] National Teleradiology Program (NTP) for interpretation. FINDINGS: [...] 100 cm/sec READING PHYSICIAN: Lloyd Sanchez M.D. -[id number] 04/23/2023 19:24 [facility] National Teleradiology Program [phone] (For Medical Practitioner Use Only) Attention Patients / Veterans: If you have questions or concerns about these test results, please contact your ordering provider or primary care team. Primary Diagnostic Code: NO ALERT REQUIRED Primary Interpreting Staff: RADIOLOGY,OUTSIDE SERVICE, Staff Physician / RADIOLOGY,OUTSIDE SERVICE [facility] [place] [facility] Apr 22, 2023 12:31 PM ULTRASOUND AAA SCREENING: JORDAN HONGL SMILEY [id number] -1960 M Exm Date: APR 22, 2023@12:31 Req Phys: BOY DELONG Loc: CWM/SO/PACT 3 WH (Req'g Loc) Img Loc: ULTRASOUND Service: Unknown (Case 459 COMPLETE) ULTRASOUND AAA SCREENING (US Detailed) CPT:58848 Reason for Study: HTN Clinical History: screen Report Status: Verified Date Reported: APR 23, 2023 Date Verified: APR 23, 2023 Proctologist E-Sig: Report: ULTRASOUND AAA SCREENING PROVIDED CLINICAL [...] aneurysm identified. READING PHYSICIAN: Lloyd Sanchez M.D. -[id number] 04/23/2023 16:56 [facility] National Teleradiology Program [phone] (For Medical Practitioner Use Only) Attention Patients / Veterans: If you have questions or concerns about these test results, please contact your ordering provider or primary care team. Primary Diagnostic Code: NO ALERT REQUIRED Primary Interpreting Staff: RADIOLOGY,OUTSIDE SERVICE, Staff Physician / RADIOLOGY,OUTSIDE SERVICE [facility] Encounter Notes: All associated encounter notes [...] 12:46 /ivone/ BOY DELONG PA-C STAFF PHYSICIAN SALARY AND WAGE ADMINISTRATOR --- Original Document --- 04/04/23 [facility]: CLINICAL TRIAGE: Patient Demographics Patient Name: LUPILLO HONG Patient Primary Address: [address] [place] [address] Patient Primary Phone: [phone] Patient : 1960 Patient Age: 62 Caller/Recipient Relation to Patient: Self Emergency Contact: KB HONG Triage Summary Conducted triage/discussed symptoms Pain Score: 0 (No Pain) Utilized the Triage Tool: Yes Chief Complaint: Blood Pressure Check System WHEN: Within 3 Days Nurse's Recommendation / WHEN: Within 3 Days System WHERE: Clinic Nurse's Recommendation / WHERE: [facility] Patient Disposition Patient/Caregiver agrees to plan of care: Yes Nursing Plan and Disposition Referred Patient for In-Person Appt Other course(s) of action Transferred patient to Sched & Admin-Apt Generated msg to PACT/Provider Provided guidance for worsening symptoms: *Caller/Patient* advised to call facilities [place] Clinical Contact Center or seek immediate medical [...] blood pressure medications as prescribed daily. See [facility] Triage recommendation. Marvat agrees with plan to see provider within 3 days and was hoping for today. Will alert PACT Team at this time for review. Vet agrees to continue to monitor bp and bring a log to appt. Clinical Contact Center Codes Clinic/Location: V1 CWM PHONE CCC RN TXCC Triage Complete Triage Note: Phone Triage 04 Apr 2023 15:55:37 +0000 [facility] Demographics 62 y/o Male Results CC: Blood Pressure Check Software suggested: Within 3 Days Software suggested follow-up location: Clinic[facility] Values and Measures SBP: 165 mmHg [...] PMH: stroke or TIA /es/ SÁNCHEZ SANCHEZ [id number] Signed: 04/04/2023 11:06 Receipt Acknowledged By: 04/04/2023 11:36 /es/ Teja Lutz RN Registered Nurse (RN) 04/04/2023 11:46 /es/ SUZETTE WOO LPN LICENSED PRACTICAL NURSE TEJA LUTZ [facility] Apr 04, 2023 11:06 AM RN PROGRESS NOTE: LOCAL TITLE: CCC: CLINICAL TRIAGE STANDARD TITLE: RN PROGRESS NOTE DATE OF NOTE: APR 04, 2023@11:06:26 ENTRY DATE: APR 04, 2023@11:06:26 AUTHOR: SÁNCHEZ SANCHEZ EXP COSIGNER: URGENCY: STATUS: COMPLETED CCC: CLINICAL TRIAGE Has ADDENDA Patient Demographics Patient Name: LUPILLO HONG Patient Primary Address: [address] [place] [address] Patient Primary Phone: [phone] Patient : 1960 Patient Age: 62 Caller/Recipient Relation to Patient: Self Emergency Contact: KBCAESAR HONG Triage Summary Conducted triage/discussed symptoms Pain Score: 0 (No Pain) Utilized the Triage Tool: Yes Chief Complaint: Blood Pressure Check System WHEN: Within 3 Days Nurse's Recommendation / WHEN: Within 3 Days System WHERE: Clinic Nurse's Recommendation / WHERE: [facility] Patient Disposition Patient/Caregiver agrees to plan of care: Yes Nursing Plan and Disposition Referred Patient for In-Person Appt Other course(s) of action Transferred patient to Sched & Admin-Apt Generated msg to PACT/Provider Provided guidance for worsening symptoms: *Caller/Patient* advised to call facilities [place] Clinical Contact Center or seek immediate medical [...] blood pressure medications as prescribed daily. See [facility] Triage recommendation. Vet agrees with plan to see provider within 3 days and was hoping for today. Will alert PACT Team at this time for review. Vet agrees to continue to monitor bp and bring a log to appt. Clinical Contact Center Codes Clinic/Location: V1 [facility]WM PHONE CCC RN TXCC Triage Complete Triage Note: Phone Triage 04 Apr 2023 15:55:37 +0000 [facility] Demographics 62 y/o Male Results CC: Blood Pressure Check Software suggested: Within 3 Days Software suggested follow-up location: [facility] Values and Measures SBP: 165 mmHg [...] stroke or TIA /es/ SÁNCHEZ RITESH SANCHEZ [id number] Signed: 04/04/2023 11:06 Receipt Acknowledged By: 04/04/2023 [...] SIGNATURE * BOY DELONG DENISE JEAN [facility]
--- OUTSIDE RECORDS SUMMARY | 2024-03-02 08:56 | XMS_ITS | Encounter Summary ---
Author Name [facility] [place] Address [address] [place] [address] Care Team Providers Care Trailer Tank Truck Driver Name Role Phone BOY DELONG Primary Care [...] RX PRESCRIPT ION HEALT H NEW [facility] Mar 07, 2020 [employer] [facility] [id number] MARGARETH HONG RRYL PATIENT Selected Encounter This section includes the information on record at [place] for the Encounter. Date/Time Encounter Type Encounter Description Reason Provider Source May 23, 2023 07:30 AM OFFICE O/P EST LOW 20 MIN PM&RS PHYSICIAN ICD-10-CM M25.561 Pain in right knee SOTERO ERIC E Encounter Template Text not used by [place] Assessments - Encounter Diagnoses This section includes the primary and secondary diagnoses documented for the Encounter. Date/Time Primary/Secondary Diagnosis Diagnosis Name Provider Source July 07, 2023 04:57 PM PRIMARY Pain in right knee REESE ERIC [place] [facility] [place] [facility] July 07, 2023 04:57 PM SECONDARY Pain in left knee REESE ERIC [place] [facility] [place] [facility] Plan of Treatment: Future Appointments (+ 6 months) and Future Tests (+/- 45 days) The Plan of Treatment section includes future care activities for the patient from [facility] [place] [facility]. This section includes future appointments and [...] 2023 08:00 AM AMBULATORY - PSYCHIATRY [facility] Jun 21, 2023 08:00 AM AMBULATORY - PSYCHIATRY [facility] Jun 24, 2023 11:00 AM AMBULATORY - NONE [facility] [place] [facility] Jun 24, 2023 11:30 AM AMBULATORY - REHAB MEDICIN E [facility] [place] [facility] July 22, 2023 01:00 PM AMBULATORY - PSYCHIATRY [facility] August 03, 2023 08:00 AM AMBULATORY - REHAB MEDICIN E [facility] August 05, 2023 09:00 AM AMBULATORY - PS[facility]IATRY [facility] [place] [facility] August 05, 2023 03:00 PM AMBULATORY - PS[facility]CHIATRY [facility] [place] [facility] Aug 11, 2023 10:40 AM AMBULATORY - MEDICINE [place] [facility] [place] [facility] Aug 19, 2023 10:00 AM AMBULATORY - REHAB MEDICIN [facility] Sep 09, 2023 09:30 AM AMBULATORY - PS[facility]CHIATRY [facility] [place] [facility] Oct 14, 2023 09:30 AM AMBULATORY - PS[facility]CHIATRY [facility] [place] [facility] Oct 28, 2023 10:00 AM AMBULATORY - PS[facility]CHIATRY [facility] [place] [facility] Nov 11, 2023 11:00 AM AMBULATORY - PS[facility]CHIATRY [facility] [place] [facility] Nov 14, 2023 03:00 PM AMBULATORY - MEDICINE [place] [facility] [place] [facility] Nov 17, 2023 08:00 AM AMBULATORY - MEDICINE [place] [facility] [place] [facility] Lab Results: +/- 30 days of the encounter This section includes the Chemistry and Hematology Lab Results on record with [place] for the patient. Radiology Reports and Pathology Reports are provided separately, in subsequent sections. Lab Results This section contains the Chemistry/Hematology Results that were resulted 30 days before or 30 daysafter the date of the Encounter. Date/Time Source Result Type Result - Unit Interpretation Reference Range Comment Jun 09, 2023 08:32 AM [facility] URINALYSIS Specimen Type: URINE Comment: If Glucose = >500 and Ketones are positive, please alert the Physician. Ordering Provider: BOY DELONG Report Released Date/Time: Dec 14, 2022 10:56 AM Reporting Lab: [address] [address] Performing Lab: [address] [address] UA COLOR Light-Yellow Yellow UA APPEARANCE Clear Clear UA GLUCOSE NEGATIVE mg/dL Negative UA KETONES NEGATIVE mg/dL Negative UA BLOOD NEGATIVE mg/dL Negative UA PROTEIN NEGATIVE mg/dL Negative UA NITRITE NEGATIVE mg/dL Negative UA BILIRUBIN NEGATIVE mg/dL Negative UA SPECIFIC GRAVITY 1.015 L 1.016-1.02 2 UA pH 5.5 5.0-9.0 UA UROBILINOGEN <2.0 mg/dL <2.0 UA LEUKOCYTE NEGATIVE Negative Jun 09, 2023 08:32 AM [facility] VITAMIN D (25-OH) Specimen Type: SERUM No comment entered. Ordering Provider: BOY DELONG Report Released Date/Time: Dec 14, 2022 10:56 AM Reporting Lab: [address] [address] Performing Lab: [address] [address] VITAMIN D (25-OH) 21 ng/mL 20-50 Jun 09, 2023 08:32 AM [facility] VITAMIN B12 Specimen Type: SERUM No comment entered. Ordering Provider: BOY DELONG Report Released Date/Time: Dec 14, 2022 10:56 AM Reporting Lab: [address] [address] Performing Lab: [address] [address] VITAMIN B12 580 pg/mL 200-900 Jun 09, 2023 08:32 AM [facility] FERRITIN Specimen Type: SERUM No comment entered. Ordering Provider: BOY DELONG Report Released Date/Time: Dec 14, 2022 10:56 AM Reporting Lab: [address] [address] Performing Lab: [address] [address] FERRITIN 199 ng/mL 20-300 Jun 09, 2023 08:32 AM [facility] RETICULOCYTES Specimen Type: BLOOD No comment entered. Ordering Provider: BOY DELONG Report Released Date/Time: Dec 14, 2022 10:56 AM Reporting Lab: [address] [address] Performing Lab: [address] [address] RETIC % 1.1 0.6-2.0 RETIC, ABS 61.8 10*3/uL 30.0-90.0 Ret-He % 31.3 27.9-42.0 Jun 09, 2023 08:32 AM [facility] CBC AND DIFF (AUTO) Specimen Type: BLOOD No comment entered. Ordering Provider: BOY DELONG Report Released Date/Time: Dec 14, 2022 10:56 AM Reporting [facility]: [facility] [address] [address] Performing Lab: [address] [address] WBC 4.38 10*3/uL L 4.50-11.00 RBC 5.42 10*6/uL 4.23-5.66 HGB 15.0 g/dL 12.8-17 HCT 44.9 39.2-50.4 MCV 82.8 fL 82-99 MCHC 33.4 g/dL 30.8-35.1 PLT 265 10*3/uL 140-360 RDW-CV 12.8 12.0-16.0 Lasalle, Abs 0.37 10*3/uL 0.30-1.10 MCH 27.7 pg 26.2-32.6 Neut % 56.0 43.7-75.8 Lymph % 31.7 14.0-42.3 Lasalle % 8.4 5.1-13.7 Eos % 3.0 0.4-6.8 Baso % 0.7 0.1-2.0 Neut, Abs 2.45 10*3/uL 2.20-7.60 Lymph, Abs 1.39 10*3/uL 1.00-3.20 Eos, Abs 0.13 10*3/uL 0.03-0.44 Baso, Abs 0.03 10*3/uL 0.01-0.13 Immature Gran % 0.2 0.0-0.7 Immature Gran, Abs 0.01 10*3/uL 0.00-0.06 Jun 09, 2023 08:32 AM [facility] PSA Specimen Type: SERUM No comment entered. Ordering Provider: BOY DELONG Report Released Date/Time: Dec 14, 2022 10:56 AM Reporting Lab: [address] [address] Performing Lab: [address] [address] PSA 2.13 ng/mL 0.00-4.00 Jun 09, 2023 08:32 AM [facility] HEMOGLOBIN A1C PANEL Specimen Type: BLOOD Comment: [...] Dec 14, 2022 10:56 AM Reporting Lab: [address] [address] Performing Lab: [address] [address] HEMOGLOBIN A1C 5.8 H 4.0-5.6 Jun 09, 2023 08:32 AM [facility] TSH Specimen Type: SERUM No comment entered. Ordering Provider: BOY DELONG Report Released Date/Time: Dec 14, 2022 10:56 AM Reporting Lab: [address] [address] [facility]forming [facility]: [facility] [address] [facility] [address] TSH 2.27 u[IU]/mL 0.35-5.00 Jun 09, 2023 08:32 AM [facility] BASIC METABOLIC PANEL (fasting) Specime n Type: SERUM No comment entered. Ordering Provider: BOY DELONG Report Released Date/Time: Dec 14, 2022 10:56 AM Reporting Lab: [facility] [address] [address] Performing Lab: [facility] [address] [address] UREA NITROGEN 15 mg/dL 7-25 GLUCOSE 113 mg/dL H 65-100 SODIUM 141 mmol/L 135-145 POTASSIUM 3.9 mmol/L 3.5-5.0 CHLORIDE 108 mmol/L 100-110 CO2 24 meq/L 20-30 CREATININE, Serum 1.17 mg/dL 0.50-1.40 eGFR(CKD-EPI 2020) 71 mL/min >60 Jun 09, 2023 08:32 AM [facility] LIPID PANEL FASTING Specimen Type: SERUM No comment entered. Ordering Provider: BOY DELONG Report Released Date/Time: Dec 14, 2022 10:56 AM Reporting Lab: [facility] [address] [address] Performing Lab: [facility] [address] [address] CHOLESTEROL 173 mg/dL TRIGLYCERIDE 81 mg/dL 0-150 LDL calculated 118 mg/dL 0-129 CHOL/HDL 4.4 HDL CHOLESTEROL 39 mg/dL L 40-60 Jun 09, 2023 08:32 AM [facility] CALCIUM Specimen Type: SERUM No comment entered. Ordering Provider: BOY DELONG Report Released Date/Time: Dec 14, 2022 10:56 AM Reporting Lab: [facility] [address] [address] Performing Lab: [facility] [address] CALCIUM 8.8 mg/dL 8.5-10.2 Jun 09, 2023 08:32 AM [facility] LIVER FUNCTION Specimen Type: SERUM No comment entered. Ordering Provider: BOY DELONG Report Released Date/Time: Dec 14, 2022 10:56 AM Reporting Lab: [address] [address] Performing Lab: [address] [address] PROTEIN,TOTAL 6.9 g/dL 6.0-8.3 ALBUMIN 4.0 g/dL 3.5-5.0 ALKALINE PHOSPHATASE 66 U/L 40-150 AST 19 U/L 5-34 ALT 27 U/L BILIRUBIN, TOTAL 0.5 mg/dL 0.2-1.2 Jun 09, 2023 08:32 AM [facility] URIC ACID Specimen Type: SERUM No comment entered. Ordering Provider: BOY DELONG Report Released Date/Time: Dec 14, 2022 10:56 AM Reporting Lab: [address] [address] Performing Lab: [address] [address] URIC ACID 5.6 mg/dL 3.5-7.2 Vital Signs: All taken on the encounter date This section contains inpatient and outpatient Vital Signs collected on the date of the Encounter. Date/Time Temperature Pulse Blood Pressure Respiratory Rate SP02 Pain Height Weight Body Mass Index Source May 23, 2023 07:41 AM 130/80 5 [facility] Encounter Notes: All associated encounter notes This section contains the clinical notes associated to the Encounter. Date/Time Encounter Note(s) Provider Source May 23, 2023 08:02 AM PHYSICAL MEDICINE REHAB NOTE: LOCAL TITLE: PM&R BACK/JOINT PROCEDURE NOTE STANDARD TITLE: PHYSICAL MEDICINE REHAB NOTE DATE OF NOTE: MAY 23, 2023@08:02 ENTRY DATE: MAY 23, 2023@08:02:33 AUTHOR: SOTERO ERIC EXP COSIGNER: URGENCY: STATUS: COMPLETED PROCEDURE: Bilateral intra-articular knee injection with hyluronic Acid, INDICATION: Knee pain.Osteoarthritis ANESTHESIA: None. INFORMED CONSENT: Obtained verbally, and through IMED. [place] states the knees continue to be achy [...] with the injection. TIME OUT NOTE TIME:May@07:40 [place] correctly stated: [X]Full name: LUPILLO HONG [X]Last 4 of #: [id number] [X]: Oct PROVIDER NAME: Sotero Eric PA-c STAFF NAME: Mya Grewal RN Lot #: [id number] Exp: 2025-08-04 The procedure was performed with [...] pain level: 3/10 Assessment and plan: 62-year-old [place] with bilateral osteoarthritis of the knees. Durolane [...] MDM: 25 minutes Suicide Screen: C-SSRS Screening [place]-Suicide Severity Rating Scale (C-SSRS Screener) 1. Over [...] responses to other questions. /ivone/ [facility] Signed: 05/23/2023 08:09 [facility] ERIC [place] [facility]
--- OUTSIDE RECORDS SUMMARY | 2024-03-02 08:56 | XMS_ITS | Encounter Summary ---
Author Name [facility] [place] Address [address] [place] [id number] Care Team Providers Care Deputy Sheriff Civil Division Name Role Phone BOY DELONG Primary Care [...] RX PRESCRIPT ION HEALT H [facility] Mar 07, 2020 [facility] [id number] MARGARETH HONG RRYL PATIENT Selected Encounter This section includes the information on record at [place] for the Encounter. Date/Time Encounter Type Encounter Description Reason Provider Source Apr 04, 2023 03:00 PM OFFICE O/P EST LOW 20 MIN PRIMARY CARE/MEDICINE ICD-10-CM I10 Essential (primary) hypertension BOY DELONG Encounter Template Text not used by [place] [...] The data comes from all [place] treatment [facility]. Appointment Date/Time Appointment Type Appointme nt Facility Name Apr 15, 2023 01:30 PM AMBULATORY - MEDICINE [facility] Apr 22, 2023 12:30 PM AMBULATORY - NONE [facility] [place] [facility] May 13, 2023 11:00 AM AMBULATORY - NONE [facility] [place] [facility] May 23, 2023 07:30 AM AMBULATORY - REHAB MEDICIN E [facility] [place] [facility] Jun 10, 2023 11:30 AM AMBULATORY - MEDICINE [facility] Jun 17, 2023 08:00 AM AMBULATORY - PSYCHIATRY [facility] Jun 21, 2023 08:00 AM AMBULATORY - PSYCHIATRY [facility] Jun 24, 2023 11:00 AM AMBULATORY - NONE [facility] [place] [facility] Jun 24, 2023 11:30 AM AMBULATORY - REHAB MEDICIN E [facility] [place] [facility] July 22, 2023 01:00 PM AMBULATORY - PSYCHIATRY [facility] August 03, 2023 08:00 AM AMBULATORY - REHAB MEDICIN [facility] August 05, 2023 09:00 AM AMBULATORY - PSYCHIATRY [facility] [place] [facility] August 05, 2023 03:00 PM AMBULATORY - PSYCHIATRY [facility] [place] [facility] Aug 11, 2023 10:40 AM AMBULATORY - MEDICINE [place] [facility] [place] [facility] Aug 19, 2023 10:00 AM AMBULATORY - REHAB MEDICIN E [place] Sep 09, 2023 09:30 AM AMBULATORY - PS[facility]CHIATRY [facility] [place] [facility] Vital Signs: All taken on the encounter [...] Matthew blankenship May 14, 2022 11:30 AM [place]-TO[place]AC[place] NEVER USED [place] Tobacco Use History This section includes a history of the smoking, or tobacco-related health factors, that were collected on or before the date of the Encounter. The data comes from the [place] facility where the Encounter took place. Date/Time Smoking Status/Tobacco Use Comment F sabrina Mar 27, 2021 11:00 AM [place]-TOBACCO NEVER USED [place] Radiology Reports: +/- 30 days of the [...] 12:32 PM NON-INVAS. CAROTID IMAGING: LUPILLO HONG [id number] -1960 M Exm Date: APR 22, 2023@12:32 Req Phys: BOY DELONG Loc: CWM/SO/PACT 3 WH (Req'g Loc) Img Loc: ULTRASOUND Service: Unknown (Case [id number] COMPLETE) NON-INVAS. CAROTID IMAGING (US Detailed) CPT:82482 Reason for Study: HTN Clinical History: screen Report Status: Verified Date Reported: APR 24, 2023 Date Verified: APR 24, 2023 Field Contractor E-Sig: Report: NON-INVAS. CAROTID IMAGING HISTORY: Reason for Study: HTN screen. COMPARISON: No prior exams for comparison TECHNIQUE: Duplex imaging of the carotid arteries was performed at the local [place] facility utilizing grayscale, color Doppler and spectral analysis. 31 images were received by the [place] National Teleradiology Program (NTP) for interpretation. FINDINGS: [...] 100 cm/sec READING PHYSICIAN: Lloyd Sanchez M.D. -[id number] 04/23/2023 19:24 [facility] National Teleradiology Program [phone] (For Medical Practitioner Use Only) Attention Patients / Veterans: If you have questions or concerns about these test results, please contact your ordering provider or primary care team. Primary Diagnostic Code: NO ALERT REQUIRED Primary Interpreting Staff: RADIOLOGY,OUTSIDE SERVICE, Staff Physician / RADIOLOGY,OUTSIDE SERVICE [place] [facility] [place] [facility] Apr 22, 2023 12:31 PM ULTRASOUND AAA SCREENING: LUPILLO HONG [id number] -1960 M Exm Date: APR 22, 2023@12:31 Req Phys: BOY DELONG Loc: CWM/SO/PACT 3 WH (Req'g Loc) Img Loc: ULTRASOUND Service: Unknown (Case [id number] COMPLETE) ULTRASOUND AAA SCREENING (US Detailed) CPT:99128 Reason for Study: HTN Clinical History: screen Report Status: Verified Date Reported: APR 23, 2023 Date Verified: APR 23, 2023 Field Contractor E-Sig: Report: ULTRASOUND AAA SCREENING PROVIDED CLINICAL [...] aneurysm identified. READING PHYSICIAN: Lloyd Sanchez M.D. -[id number] 04/23/2023 16:56 [facility] National Teleradiology Program [phone] (For Medical Practitioner Use Only) Attention Patients / Veterans: If you have questions or concerns about these test results, please contact your ordering provider or primary care team. Primary Diagnostic Code: NO ALERT REQUIRED Primary Interpreting Staff: RADIOLOGY,OUTSIDE SERVICE, Staff Physician / RADIOLOGY,OUTSIDE SERVICE [facility] Encounter Notes: All associated encounter notes This section contains the clinical notes associated to the Encounter. Date/Time Encounter Note(s) Provider Source Apr 28, 2023 09:28 AM PHYSICIAN EVERARDO Cantu NOTE: LOCAL TITLE: PA NOTE STANDARD TITLE: PHYSICIAN LABOR RELATIONS OFFICER NOTE DATE OF NOTE: APR 28, 2023@09:28 ENTRY DATE: APR 28, 2023@09:28:08 AUTHOR: BOY DELONG EXP COSIGNER: URGENCY: STATUS: COMPLETED i called spoke pt discused US carotids no sign stenosis echo TTT pending /ivone/ BOY DELONG PA-C STAFF PHYSICIAN LABOR RELATIONS OFFICER Signed: 04/28/2023 09:28 DELONGBOY MILES Apr 04, 2023 03:44 PM PHYSICIAN EVERARDO Cantu NOTE: LOCAL TITLE: LEANDER CARRASQUILLO STANDARD TITLE: PHYSICIAN LABOR RELATIONS OFFICER NOTE DATE OF NOTE: APR 04, 2023@15:44 [...] provider. /ivone/ BOY DELONG PA-C STAFF PHYSICIAN LABOR RELATIONS OFFICER Signed: 04/04/2023 16:33 BALJEETBOY Apr 04, 2023 03:41 PM PREVENTIVE MEDICIN [...] PRACTICAL NURSE Signed: 04/04/2023 15:46 SUZETTE WOO [place]
--- OUTSIDE RECORDS SUMMARY | 2024-03-02 08:56 | XMS_ITS ---
Author Name [facility] [place] Address [address] [place] [address] Care Team Providers Care Seat Pack Inspector Name Role Phone BOY DELONG Primary Care [...] RX PRESCRIPT ION HEALT H [facility] Mar 07, 2020 [facility] [id number] MARGARETH HONG RRYL PATIENT Selected Encounter This section includes the information on record at [place] for the Encounter. Date/Time Encounter Type Encounter Description Reason Provider Source Apr 01, 2023 11:00 AM OFFICE O/P EST LOW 20 MIN PM&RS PHYSICIAN ICD-10-CM M16.11 Unilateral primary osteoarthritis, right hip REESE MCFADDEN E Encounter Template Text not used by [place] Assessments - Encounter Diagnoses This section includes the primary and secondary diagnoses documented for the Encounter. Date/Time Primary/Secondary Diagnosis Diagnosis Name Provider Source Apr 04, 2023 09:40 AM PRIMARY Unilateral primary osteoarthritis, right hip NNAMDI MCFADDEN [facility] Apr 04, 2023 09:40 AM SECONDARY Bilateral primary osteoarthritis of knee NNAMDI MCFADDEN [facility] [place] [facility] Plan of Treatment: Future Appointments (+ 6 months) and Future Tests (+/- 45 days) The Plan of Treatment section includes future care [facility] This section includes future appointments and future orders which are active, pending or scheduled. Future Appointments This section includes appointments that were scheduled to occur 6 months from the date of the Encounter, up to a maximum of 20 appointments. The data comes from all [place] treatment facilities. Appointment Date/Time Appointment Type Appointme nt Facility Name Apr 04, 2023 03:00 PM [facility]ULATORY [facility]ICINE [facility] Apr 15, 2023 01:30 PM [facility]ORY - MEDICINE [facility] Apr 22, 2023 12:30 PM AMBULATORY - NONE [facility] [place] [facility] May 13, 2023 11:00 AM AMBULATORY - NONE [facility] [place] [facility] May 23, 2023 07:30 AM AMBULATORY - REHAB MEDICIN [facility] [place] [facility] Jun 10, 2023 11:30 AM [facility] Jun 17, 2023 08:00 AM AMBULATORY - PSYCHIATRY [facility] Jun 21, 2023 08:00 AM AMBULATORY - PSYCHIATRY [facility] Jun 24, 2023 11:00 AM AMBULATORY - NONE [facility] [place] [facility] Jun 24, 2023 11:30 AM AMBULATORY - REHAB MEDICIN [facility] [place] [facility] July 22, 2023 01:00 PM AMBULATORY - PSYCHIATRY [facility] August 03, 2023 08:00 AM AMBULATORY - REHAB MEDICIN [facility] August 05, 2023 09:00 AM AMBULATORY - PS[facility]CHIATRY [facility] [place] [facility] August 05, 2023 03:00 PM AMBULATORY - PSYCHIATRY [facility] [place] [facility] Aug 11, 2023 10:40 AM AMBULATORY - MEDICINE [facility] [place] [facility] Aug 19, 2023 10:00 AM AMBULATORY - REHAB MEDICIN [facility] Sep 09, 2023 09:30 AM AMBULATORY - PS[facility]CHIATRY [facility] [place] [facility] Radiology Reports: +/- 30 days of [...] the Encounter. The data comes from all [place] treatment facilities. Date/Time Radiology Report Provider Source Apr 22, 2023 12:32 PM NON-INVAS. CAROTID IMAGING: LUPILLO HONG [id number] -1960 M Exm Date: APR 22, 2023@12:32 Req Phys: DELONG,BOY [place] Loc: CWM/SO/PACT 3 WH (Req'g Loc) Img Loc: ULTRASOUND Service: Unknown (Case [id number] COMPLETE) NON-INVAS. CAROTID IMAGING (US Detailed) CPT:51939 Reason for Study: HTN Clinical History: screen Report Status: Verified Date Reported: APR 24, 2023 Date Verified: APR 24, 2023 Medical Engineer E-Sig: Report: NON-INVAS. CAROTID IMAGING HISTORY: Reason for Study: HTN screen. COMPARISON: No prior exams for comparison TECHNIQUE: Duplex imaging of the carotid arteries was performed at the local [place] facility utilizing grayscale, color Doppler and spectral [...] 100 cm/sec READING PHYSICIAN: Lloyd Sanchez M.D. -[id number] 04/23/2023 19:24 [facility] National Teleradiology Program [phone] (For Medical Practitioner Use Only) Attention Patients / Veterans: If you have questions or concerns about these test results, please contact your ordering provider or primary care team. Primary Diagnostic Code: NO ALERT REQUIRED Primary Interpreting Staff: RADIOLOGY,OUTSIDE SERVICE, Staff Physician / RADIOLOGY,OUTSIDE SERVICE [facility] [place] [facility] Apr 22, 2023 12:31 PM ULTRASOUND AAA SCREENING: LUPILLO HONG [id number] -1960 M Ex Date: APR 22, 2023@12:31 Req Phys: BOY DELONG Loc: CWM/SO/PACT 3 WH (Req'g Loc) Img Loc: ULTRASOUND Service: Unknown (Case [id number] COMPLETE) ULTRASOUND AAA SCREENING (US Detailed) CPT:29066 Reason for Study: HTN Clinical History: screen Report Status: Verified Date Reported: APR 23, 2023 Date Verified: APR 23, 2023 Medical Engineer E-Sig: Report: ULTRASOUND AAA SCREENING PROVIDED CLINICAL [...] aneurysm identified. READING PHYSICIAN: Lloyd Sanchez M.D. -[id number] 04/23/2023 16:56 [facility] National Teleradiology Program [phone] (For Medical Practitioner Use Only) Attention Patients / Veterans: If you have questions or concerns about these test results, please contact your ordering provider or primary care team. Primary Diagnostic Code: NO ALERT REQUIRED Primary Interpreting Staff: RADIOLOGY,OUTSIDE SERVICE, Staff Physician / RADIOLOGY,OUTSIDE SERVICE [facility] Encounter Notes: All associated encounter notes [...] for follow-up of right intra-articular hip injection. Edwards reports that the right hip injection was [...] Dyspnea Soc Hx: MARITAL STATUS - NEVER [id number].inc FROM Oct TO Oct ALL: Patient has [...] Appropriate affect and social interaction. MUSCULOSKELETAL EXAM: Edwards was seen today via video communication. He was able to arise without a great deal of difficulty. He has an antalgic gait. His lumbar extension did not seem to bother him greatly. Diagnostic Studies: X-rays available through [place] ASSESSMENT/PLAN: Patient is a 62-year-old Edwards with osteoarthritis of the right hip and [...] this [facility] (local) and dispensed from another [place] or [facility]D facility (remote) as well as [...] whether with a VA or non-VA provider. [employer] (VV) Standard Documentation VV Clinician Resources Only: E911 (Emergency Call Relay Center): [phone] National Veterans Crisis Line - 988 then press #1. PHIL Suicide Coordinator [phone], Ext. [phone]; Back-up Ext. [phone] [place] Police, Valente VILLARREAL [phone] Introduction: Visit is being conducted by [facility]. identified with 2 identifiers: [X] Full Name [X] Date of [ ] VA ID Card Emergency Plan: confirmed and/or provided the following information in case of emergency or technology failure. PATIENT PHONE - PHONE NUMBER [CELLULAR] - NONE FOUND Is patient phone number correct, if not, enter below: 's phone number: LUPILLO HONG [address], [place], [address] Edwards's present location and address for appointment: home Edwards's emergency contact name and phone number: on file reported that location is private and safe: Yes Informed Consent: Edwards informed of the risks and benefits of Telehealth video care. has the right to refuse video services. If refuses video visit, a [id number] visit will be scheduled. verbalized consent for this video visit: Yes provided consent for any other persons present for visit: N/A If yes, who and relationship to patient: Secure visit: Visit was locked for security and privacy:Yes /HIEN Vickers Signed: 04/01/2023 15:15 04/06/2023 ADDENDUM STATUS: COMPLETED JASSO used will be Dash /HIEN Vickers Signed: 04/06/2023 12:12 JAM MCFADDEN [facility] [place]
--- OUTSIDE RECORDS SUMMARY | 2024-03-02 08:57 | XMS_ITS ---
Author Name [facility] Organization [facility] [place] Address [address] [place] [address] Care Team Providers Care Senior Director Creative Services Name Role Phone BOY DELONG Primary Care [...] PRESCRIPT ION HEALT H [facility] Mar 07, 2020 [facility] [id number] MARGARETH HONG RRYL PATIENT Selected Encounter This section includes the information on record at [place] for the Encounter. Date/Time Encounter Type Encounter Description Reason Provider Source Jan 13, 2024 10:00 AM MTMS BY PHARM ADDL 15 [facility] - IND ICD-10-CM F32.1 Major depressive disorder, single episode, moderate PRETTY MEEHAN Rosibel Encounter Template Text not used by DC Assessments - Encounter Diagnoses This section includes the primary and secondary diagnoses documented for the Encounter. Date/Time Primary/Secondary Diagnosis Diagnosis Name Provider Source Jan 13, 2024 10:27 AM PRIMARY Major depressive disorder, single episode, moderate PRETTY MEEHAN [facility] Plan of Treatment: Future Appointments (+ 6 months) and Future Tests (+/- 45 days) The Plan of Treatment section includes future care activities for the [facility] This section includes future appointments and future orders which are active, pending or scheduled. Future Appointments This section includes appointments that were scheduled to occur 6 months from the date of the Encounter, up to a maximum of 20 appointments. The data comes from all [place] treatment facilities. Appointment Date/Time Appointment Type Appointme nt Facility Name Feb 03, 2024 03:30 PM AMBULATORY - MEDICINE [facility] Mar 01, 2024 11:00 AM AMBULATORY - MEDICINE [place] [facility] Apr 06, 2024 10:00 AM [facility] May 14, 2024 10:30 AM [facility] Active, Pending, and Scheduled Orders This section includes a listing of several types of active, pending, and scheduled orders, including clinic medications orders, diagnostic test orders, procedure orders and consult orders; where the start date of the order is 45 days before the date of the Encounter or 45 days after the date of theEncounter. The data comes from all [facility]. Test Date/Time Test Type Test Details Facility Name Jan 13, 2024 01:37 PM Consult Order COMMUNITY CARE-ORTHO SURGICAL Cons Barrel Charrer [facility] [facility] Feb 03, 2024 03:52 PM Consult Order PHYSICAL T HERAPY/SPOPC OUTPT Cons Barrel Char[facility] Lab Results: +/- 30 days of the encounter This section includes the Chemistry and Hematology Lab Results on record with DC for the patient. Radiology Reports and Pathology Reports are provided separately, in subsequent sections. Lab Results This section contains the Chemistry/Hematology Results that were resulted 30 days before or 30 daysafter the date of the Encounter. Date/Time Source Result Type Result - Unit Interpretation Reference Range Comment Jan 06, 2024 10:11 AM [facility] MICROALBUMIN CREATININE RATIO PANEL Spe cimen Type: URINE No comment entered. Ordering Provider: BOY DELONG Report Released Date/Time: Nov 23, 2023 08:33 AM Reporting Lab: [facility] [facility] [address] [facility] [address] Performing Lab: [facility] [address] [address] [address] MICROALBUMIN/C REATININE RATIO 13.8 mg/g 0-29.9 MICROALBUMIN,Q UANTITATIVE 2.5 mg/dL RR UNAVAIL CREATININE URINE 180.82 mg/dL Jan 06, 2024 10:11 AM [facility] URINALYSIS Specimen Type: URINE Comment: If Glucose = >500 and Ketones are positive, please alert the Physician. Ordering Provider: BOY DELONG Report Released Date/Time: Nov 23, 2023 08:33 AM Reporting Lab: [address] [address] Performing Lab: [address] [address] UA COLOR Light-Yellow Yellow UA APPEARANCE Clear Clear UA GLUCOSE Normal mg/dL Negative UA KETONES NEGATIVE mg/dL Negative UA BLOOD NEGATIVE mg/dL Negative UA PROTEIN 10 mg/dL Negative UA NITRITE NEGATIVE mg/dL Negative UA BILIRUBIN NEGATIVE mg/dL Negative UA SPECIFIC GRAVITY 1.024 H 1.016-1.022 UA pH 5.5 5.0-9.0 UA UROBILINOGEN Normal mg/dL <2.0 UA LEUKOCYTE NEGATIVE Negative Jan 06, 2024 09:55 AM [facility] URIC ACID Specimen Type: SERUM No comment entered. Ordering Provider: BOY DELONG Report Released Date/Time: Nov 23, 2023 08:33 AM Reporting Lab: [address] [address] Performing Lab: [address] [address] URIC ACID 5.7 mg/dL 3.5-7.2 Jan 06, 2024 09:55 AM [facility] BASIC METABOLIC PANEL (fasting) Specime n Type: SERUM No comment entered. Ordering Provider: BOY DELONG Report Released Date/Time: Nov 23, 2023 08:33 AM Reporting Lab: [address] [address] Performing Lab: [address] [address] UREA NITROGEN 18 mg/dL 7-25 GLUCOSE 108 mg/dL H 65-100 SODIUM 140 mmol/L 135-145 POTASSIUM 3.9 mmol/L 3.5-5.0 CHLORIDE 111 mmol/L H 100-110 CO2 21 meq/L 20-30 CREATININE, Serum 1.13 mg/dL 0.50-1.40 eGFR(CKD-EPI 2020) 74 mL/min >60 Jan 06, 2024 09:55 AM [facility] CALCIUM Specimen Type: SERUM No comment entered. Ordering Provider: BOY DELONG Report Released Date/Time: Nov 23, 2023 08:33 AM Reporting Lab: [facility] [address] [facility] [address] Performing Lab: [address] [address] CALCIUM 9.0 mg/dL 8.5-10.2 Jan 06, 2024 09:55 AM [facility] LIVER FUNCTION Specimen Type: SERUM No comment entered. Ordering Provider: BOY DELONG Report Released Date/Time: Nov 23, 2023 08:33 AM Reporting Lab: [address] [address] Performing Lab: [address] [address] PROTEIN,TOTAL 6.8 g/dL 6.0-8.3 ALBUMIN 3.9 g/dL 3.5-5.0 ALKALINE PHOSPHATASE 66 U/L 40-150 AST 21 U/L 5-34 ALT 34 U/L BILIRUBIN, TOTAL 0.4 mg/dL 0.2-1.2 Jan 06, 2024 09:55 AM [facility] LIPID PANEL FASTING Specimen Type: SERUM No comment entered. Ordering Provider: BOY DELONG Report Released Date/Time: Nov 23, 2023 08:33 AM Reporting Lab: [address] [address] Performing Lab: [address] [address] CHOLESTEROL 168 mg/dL TRIGLYCERIDE 70 mg/dL 0-150 LDL calculated 115 mg/dL 0-129 CHOL/HDL 4.3 HDL CHOLESTEROL 39 mg/dL L 40-60 Jan 06, 2024 09:55 AM [facility] VITAMIN D (25-OH) Specimen Type: SERUM No comment entered. Ordering Provider: BOY DELONG Report Released Date/Time: Nov 23, 2023 08:33 AM Reporting Lab: [facility] [address] [facility] [facility] [address] Performing Lab: [place] [facility] [address] [facility] [address] VITAMIN D (25-OH) 23 ng/mL 20-50 Jan 06, 2024 09:55 AM [facility] FERRITIN Specimen Type: SERUM No comment entered. Ordering Provider: BOY DELONG Report Released Date/Time: Nov 23, 2023 08:33 AM Reporting Lab: [facility] [address] [facility] [facility] [address] Performing Lab: [facility] [address] [address] FERRITIN 214 ng/mL 20-300 Jan 06, 2024 09:55 AM [facility] VITAMIN B12 Specimen Type: SERUM No comment entered. Ordering Provider: BOY DELONG Report Released Date/Time: Nov 23, 2023 08:33 AM Reporting Lab: [facility] [address] [facility] [address] Performing Lab: [facility] [address] [facility] [facility] [address] VITAMIN B12 636 pg/mL 200-900 Jan 06, 2024 09:55 AM [facility] PSA Specimen Type: SERUM No comment entered. Ordering Provider: BOY DELONG Report Released Date/Time: Nov 23, 2023 08:33 AM Reporting Lab: [facility] [address] [facility] [address] Performing Lab: [facility] [place] [address] [address] PSA 1.09 ng/mL 0.00-4.00 Jan 06, 2024 09:55 AM [facility] CBC AND DIFF (AUTO) Specimen Type: BLOOD No comment entered. Ordering Provider: BOY DELONG Report Released Date/Time: Nov 23, 2023 08:33 AM Reporting Lab: [place] [facility] [place] [address] [address] Performing Lab: [facility] [address] [facility] [facility] [address] WBC 3.76 10*3/uL L 4.50-11.00 RBC 5.35 [...] 10*3/uL 0.00-0.00 Jan 06, 2024 09:55 AM [facility] HEMOGLOBIN A1C PANEL Specimen Type: BLOOD Comment: [...] Nov 23, 2023 08:33 AM Reporting Lab: [address] [address] Performing Lab: [facility] [address] [facility] [address] HEMOGLOBIN A1C 5.5 4.0-5.6 Jan 06, 2024 09:55 AM [facility] TSH Specimen Type: SERUM No comment entered. Ordering Provider: BOY DELONG Report Released Date/Time: Nov 23, 2023 08:33 AM Reporting Lab: [address] [address] Performing Lab: [address] [address] TSH 3.01 u[IU]/mL 0.35-5.00 Vital Signs: All taken on the encounter date This section contains inpatient and outpatient Vital Signs collected on the date of the Encounter. Date/Time Temperature Pulse Blood Pressure Respiratory Rate SP02 Pain Height Weight Body Mass Index Source Jan 13, 2024 01:11 PM 124/70 3 [facility] Radiology Reports: +/- 30 days of [...] the Encounter. The data comes from all [place] treatment facilities. Date/Time Radiology Report Provider Source Jan 10, 2024 11:27 AM KNEE 3 VIEWS (LEFT): LUPILLO HONG [id number] -1960 M Exm Date: JAN 10, 2024@11:27 Req Phys: BOY DELONG Loc: CWM/SO/PACT 3 WH (Req'g Loc) Img Loc: [facility] [place] Service: [place] [address] (Case [id number] COMPLETE) KNEE 3 VIEWS (LEFT) (RAD Detailed) CPT:59786 Reason for Study: left knee pain Clinical History: any OA or joint erosions? did have gout L knee Report Status: Verified Date Reported: JAN 10, 2024 Date Verified: JAN 10, 2024 Bereavement Coordinator E-Sig: Report: KNEE 3 VIEWS (LEFT) COMPARISON: [...] the right knee demonstrates severe medial and vkog-ci-irdiakie lateral tibiofemoral compartment joint degeneration, similar to [...] to prior. READING PHYSICIAN: Karon Blount M.D. -[id number] 01/10/2024 11:58 EST [facility] National Teleradiology Program [phone] (For Medical Practitioner Use Only) Attention Patients / Veterans: If you have questions or concerns about these test results, please contact your ordering provider or primary care team. Primary Diagnostic Code: NO ALERT REQUIRED Primary Interpreting Staff: RADIOLOGY,OUTSIDE SERVICE, Staff Physician / RADIOLOGY,OUTSIDE SERVICE [facility] Jan 10, 2024 11:[address] THORAX W/O CONT: LUPILLO HONG [id number] -1960 M [facility] Date: JAN 10, 2024@11:15 Req Phys: BOY DELONG Loc: CWM/SO/PACT 3 WH (Req'g Loc) Img Loc: [facility]/CT Service: Unknown [facility] [place] [address] (Case 84 COMPLETE) CT THORAX W/O CONT (CT Detailed) CPT:13194 Reason for Study: chest tightness Clinical History: post nasal drip coughing echo and ekg of heart neg for cardiac pathology back in may 2023 any signs interstitial lung disease? Report Status: Verified Date Reported: JAN 10, 2024 Date Verified: JAN 10, 2024 Bereavement Coordinator E-Sig: Report: CT OF THE CHEST WITHOUT IV CONTRAST INDICATION: Chest tightness, post nasal drip, coughing. Assess for signs of interstitial lung disease. TECHNIQUE: Volumetric CT acquisition through the chest, with axial, coronal and sagittal reformats, was performed at the local [place] facility. 1194 images were received by the [place] National Teleradiology Program (NTP) for interpretation. RADIATION [...] as detailed above. READING PHYSICIAN: Boy Sun -[id number] 01/10/2024 17:01 [facility]iology Program [phone] (For Medical Practitioner Use Only) Attention Patients / Veterans: If you have questions or concerns about these test results, please contact your ordering provider or primary care team. Primary Diagnostic Code: SIGNIFICANT ABNORMALITY, ATTN NEEDED Primary Interpreting Staff: RADIOLOGY,OUTSIDE SERVICE, Staff Physician / RADIOLOGY,OUTSIDE SERVICE [facility] Jan 10, 2024 11:[address] MAXILLOFACIAL W/O CONT: LUPILLO HONG [id number] -1960 M Exm Date: JAN 10, 2024@11:15 Req Phys: BOY DELONG Loc: CWM/SO/PACT 3 WH (Req'g Loc) Img Loc: [facility]/CT Service: Unknown [facility] [place] [address] (Case 85 COMPLETE) CT MAXILLOFACIAL W/O CONT (CT Detailed) CPT:27228 Reason for Study: post nasal drip Clinical History: always cleasring thraot Report Status: Verified Date Reported: JAN 10, 2024 Date Verified: JAN 10, 2024 Bereavement Coordinator E-Sig: Report: MAXILLOFACIAL CT WITHOUT IV CONTRAST/CT OF THE PARANASAL SINUSES WITHOUT IV CONTRAST: INDICATION: Post nasal drip. Patient reportedly always clearing throat. TECHNIQUE: Volumetric CT acquisition through the maxillofacial structures/paranasal sinuses, with axial, coronal and sagittal reformats, was performed at the local [place] facility. 159 images were received by the [place] National Teleradiology Program (NTP) for interpretation. RADIATION [...] commentary as above. READING PHYSICIAN: Boy Sun -[id number] 01/10/2024 16:06 [facility] National Teleradiology Program [phone] (For Medical Practitioner Use Only) Attention Patients / Veterans: If you have questions or concerns about these test results, please contact your ordering provider or primary care team. Primary Diagnostic Code: NO ALERT REQUIRED Primary Interpreting Staff: RADIOLOGY,OUTSIDE SERVICE, Staff Physician / RADIOLOGY,OUTSIDE SERVICE [facility] Encounter Notes: All associated encounter [...] MEEHAN COSIGNER: URGENCY: STATUS: COMPLETED CLINICAL PHARMACIST ALEXIA F/U NOTE Has ADDENDA [employer] ([facility]) Standard Documentation [facility] Clinician Resources Only: E911 (Emergency Call Relay Center): [phone] [place] [facility] Crisis Line - 498 then press #1. PHIL Suicide Coordinator [phone], Ext. [phone]; Back-up Ext. [phone] PHIL Mejias Leeds [phone] Introduction: Visit is being conducted by [facility]. identified with 2 identifiers: [X] Full Name [X] Date of [ ] [facility] ID Card Emergency Plan: [facility] confirmed and/or provided the following information in case of emergency or technology failure. PATIENT PHONE - PHONE NUMBER [CELLULAR] - NONE FOUND Is patient phone number correct, if not, enter below: Preemption's phone number: LUPILLO HONG [address], [place], [address] 's present location and address for appointment: at home 's emergency contact name and phone number: on file Preemption reported that location is private and safe: Yes Informed Consent: informed of the risks and benefits of Telehealth video care. has the right to refuse video services. If refuses video visit, a [id number] visit will be scheduled. Preemption verbalized consent for this video visit: Yes [...] 63yo BLACK OR MALE -=-=-=-=-=-=-=-=-=-=-=-=-=-=- =-=-=-=-=-==-=-=-=-=-=-=-=-=- =-=-=-=-=-=Subjective- Preemption was last seen on [id number] with the following pharmacotherapeutic plan: [X] No changes [ ] Discontinue: [ ] Initiate: [ ] Change the following: Treating Dx(s): MDD INTERIM HISTORY noted that pt was having difficulties w/ connecting to [facility] appt; thus, appt was conducted via TELE. [...] part of my depression was working in [employer] for 25yrs. reports sleep has improved since last seeing this junior technical writer. endorses utilizing doxepin 3-4x/wk. agreed to completed PHQ9 screen, to be sent later today. reports the following regarding medications: -N--Y- [X][ [...] following review of all active psychotropic and LOGGER ALL ROUND-active agents is to ensure pharmacotherapy is evaluated [...] Other: RTC Interval: every 12weeks Next Apt: [id number]@1000 Preemption was provided junior technical writer's contact information and instructed to contact junior technical writer as needed for any changes to scheduling or concerns otherwise. Preemption is aware of actions to take if they feel unsafe, including calling the Pre[facility]'s Crisis Line (#006); calling 911; or going to the nearest urgent care or emergency room. The is also aware of how to contact the clinic should the require additional services prior to the next appointment. Time spent on chart review, session, and documentation: 30minutes /es/ Dieudonne Meehan, DianeD Clinical Pharmacist Practitioner Signed: 01/13/2024 10:54 01/17/2024 [...] or get along with others. /ivone/ Dieudonne Meehan PharmD Clinical Pharmacist Practitioner Signed: 01/29/2024 22:37 DIEUDONNE MEEHAN [facility]
--- OUTSIDE RECORDS SUMMARY | 2024-03-02 08:57 | XMS_ITS | Encounter Summary ---
Author Name [facility] [place] Organization [facility] [place] Address [address] [place] [address] Care Team Providers Care Historic Sites Registrar Name Role Phone BOY DELONG Primary Care [...] RX PRESCRIPT ION HEALT H [facility] Mar 07, 2020 [facility] [id number] MARGARETH HONG RRYL PATIENT Selected Encounter This section includes the information on record at [place] for the Encounter. Date/Time Encounter Type Encounter Description Reason Provider Source Feb 03, 2024 03:30 PM OFFICE O/P EST MOD 30 MIN PRIMARY CARE/MEDICINE ICD-10-CM M54.30 Sciatica, unspecified side BOY DELONG Encounter Template Text not used by [place] Assessments - Encounter Diagnoses This section includes the primary and secondary diagnoses documented for the Encounter. Date/Time Primary/Secondary Diagnosis Diagnosis Name Provider Source Feb 03, 2024 04:05 PM PRIMARY Sciatica, unspecified side BOY DELONG Feb 03, 2024 04:05 PM SECONDARY Bilateral primary osteoarthritis of knee BOY DELONG Feb 03, 2024 04:05 PM SECONDARY Chronic ethmoidal sinusitis BOY DELONG Plan of Treatment: Future Appointments (+ 6 months) and Future Tests (+/- 45 days) The Plan of Treatment section includes future care activities for the patient [facility] This section includes future appointments and future orders which are active, pending or scheduled. Future Appointments This section includes appointments that were scheduled to occur 6 months from the date of the Encounter, up to a maximum of 20 appointments. The data comes from all [facility]. Appointment Date/Time Appointment Type Appointme nt Facility Name Mar 01, 2024 11:00 AM AMBULATORY - MEDICINE [facility] Apr 06, 2024 10:00 AM AMBULATORY - PSYCHIATRY [facility] May 14, 2024 10:30 AM AMBULATORY MEDICINE [facility] Active, Pending, and Scheduled Orders This section includes a listing of several types of active, pending, and scheduled orders, including clinic medications orders, diagnostic test orders, procedure orders and consult orders; where the start date of the order is 45 days before the date of the Encounter or 45 days after the date of theEncounter. The data comes from all [facility]. Test Date/Time Test Type Test Details Facility Name Jan 13, 2024 01:37 PM Consult Order COMMUNITY CARE-ORTHO SURGICAL Cons Welfare [facility] Feb 03, 2024 03:52 PM Consult Order PHYSICAL T HERAPY/SPOPC OUTPT Cons Welfare [facility] Lab Results: +/- 30 days of the [...] Result - Unit Interpretation Reference Range Comment Feb 16, 2024 11:13 AM [place] HLA-B27 (QU) Specimen Type: BLOOD Comment: Test Performed by Keerthi Patricia, [facility], [address] [place] [address] Rajesh Doss M.D., Ph.D., Director of Laboratories , CLIA [id number] TEST PERFORMED AT: , Ordering Provider: BOY DELONG Report Released Date/Time: Feb 03, 2024 03:52 PM Reporting Lab: [facility]N [facility] [address] [facility] [address] Performing Lab: [facility]OSPITALN [facility]OSPITALUSETS [facility] [address] [address] HLA-B27 Negative Negative Feb 16, 2024 11:13 AM [place] RHEUMATOID FACTOR Specimen Type: SERUM No comment entered. Ordering Provider: BOY DELONG Report Released Date/Time: Feb 03, 2024 03:52 PM Reporting Lab: [facility] [address] [facility] [address] Performing Lab: [facility] [address] [facility] [address] RHEUMATOID FACTOR <15 0-15 Feb 16, 2024 11:13 AM [place] MICHA SCREEN/TITER Specimen Type: SERUM Comment: 2+ Cytoplasmic staining observed. Ordering Provider: BOY DELONG Report Released Date/Time: Feb 03, 2024 03:52 PM Reporting Lab: [facility] [address] [facility] [address] Performing Lab: [facility]USE[facility] [address] [facility] [address] MICHA SCREEN NEG NEG <1:40 Feb 16, 2024 11:13 AM [place] C REACTIVE PROTEIN HS (WROX) Specimen T ype: SERUM Comment: Reference range changed on 08/25/10 [facility] reference ranges for ages >17 years: hsCRP in mg/L Risk According to AHA/CDC Guidelines <1.0 Lower relative cardiovascular risk. 1.0-3.0 Average cardiovascular risk. 3.1-10.0 Higher cardiovascular risk. Consider retesting in two weeks to exclude a benign transient elevation in the baseline CRP value secondary to infection or inflammation. >10.0 Persistent elevation, upon retesting, may be associated with infection and inflammation. Ordering Provider: BOY DELONG Report Released Date/Time: Feb 03, 2024 03:52 PM Reporting Lab: [facility] [address] [facility] [address] Performing Lab: [facility] [address] [facility] [address] C REACTIVE PROTEIN HS (WROX) 6.46 mg/L See eval. Feb 16, 2024 11:13 AM [place] SED RATE, AUTOMATED Specimen Type: BLOOD No comment entered. Ordering Provider: BOY DELONG Report Released Date/Time: Feb 03, 2024 03:52 PM Reporting Lab: [address] [address] Performing Lab: [address] [address] SED RATE, AUTOMATED 3 mm/h 0-20 Jan 06, 2024 10:11 AM [place] MICROALBUMIN CREATININE RATIO PANEL Spe cimen Type: URINE No comment entered. Ordering Provider: BOY DELONG Report Released Date/Time: Nov 23, 2023 08:33 AM Reporting Lab: [address] [address] Performing Lab: [address] [address] MICROALBUMIN/C REATININE RATIO 13.8 mg/g 0-29.9 MICROALBUMIN,Q UANTITATIVE 2.5 mg/dL RR UNAVAIL CREATININE URINE 180.82 mg/dL Jan 06, 2024 10:11 AM [place] URINALYSIS Specimen Type: URINE Comment: If Glucose = >500 and Ketones are positive, please alert the Physician. Ordering Provider: BOY DELONG Report Released Date/Time: Nov 23, 2023 08:33 AM Reporting Lab: [address] [address] Performing Lab: [address] [address] UA COLOR Light-Yellow Yellow UA APPEARANCE Clear Clear UA GLUCOSE Normal mg/dL Negative UA KETONES NEGATIVE mg/dL Negative UA BLOOD NEGATIVE mg/dL Negative UA PROTEIN 10 mg/dL Negative UA NITRITE NEGATIVE mg/dL Negative UA BILIRUBIN NEGATIVE mg/dL Negative UA SPECIFIC GRAVITY 1.024 H 1.016-1.02 2 UA pH 5.5 5.0-9.0 UA UROBILINOGEN Normal mg/dL <2.0 UA LEUKOCYTE NEGATIVE Negative Jan 06, 2024 09:55 AM [place] URIC ACID Specimen Type: SERUM No comment entered. Ordering Provider: BOY DELONG Report Released Date/Time: Nov 23, 2023 08:33 AM Reporting Lab: [facility]ITALR[facility]OSPITALN [facility]ITALUSE[facility] [address] [facility] [address] Performing Lab: [facility]ITALR[facility]OS[facility]ITALN [facility]ITALUSE[facility] [address] [facility] [address] URIC ACID 5.7 mg/dL 3.5-7.2 Jan 06, 2024 09:55 AM [place] CALCIUM Specimen Type: SERUM No comment entered. Ordering Provider: BOY DELONG Report Released Date/Time: Nov 23, 2023 08:33 AM Reporting Lab: [facility]ITALUSE[facility] [address] [facility] [address] Performing Lab: [facility] [address] [address] CALCIUM 9.0 mg/dL 8.5-10.2 Jan 06, 2024 09:55 AM [place] BASIC METABOLIC PANEL (fasting) Specime n Type: SERUM No comment entered. Ordering Provider: BOY DELONG Report Released Date/Time: Nov 23, 2023 08:33 AM Reporting Lab: [facility] [address] [facility] [address] Performing Lab: [facility]ITALUSEST[facility] [address] [facility] [address] UREA NITROGEN 18 mg/dL 7-25 GLUCOSE 108 mg/dL H 65-100 SODIUM 140 mmol/L 135-145 POTASSIUM 3.9 mmol/L 3.5-5.0 CHLORIDE 111 mmol/L H 100-110 CO2 21 meq/L 20-30 CREATININE, Serum 1.13 mg/dL 0.50-1.40 eGFR(CKD-EPI 2020) 74 mL/min >60 Jan 06, 2024 09:55 AM [place] LIVER FUNCTION Specimen Type: SERUM No comment entered. Ordering Provider: BOY DELONG Report Released Date/Time: Nov 23, 2023 08:33 AM Reporting Lab: [facility] [address] [facility] [address] Performing Lab: [address] [address] PROTEIN,TOTAL 6.8 g/dL 6.0-8.3 ALBUMIN 3.9 g/dL 3.5-5.0 ALKALINE PHOSPHATASE 66 U/L 40-150 AST 21 U/L 5-34 ALT 34 U/L BILIRUBIN, TOTAL 0.4 mg/dL 0.2-1.2 Jan 06, 2024 09:55 AM [place] LIPID PANEL FASTING Specimen Type: SERUM No comment entered. Ordering Provider: BOY DELONG Report Released Date/Time: Nov 23, 2023 08:33 AM Reporting Lab: [place] [facility] [facility] [address] [facility] [address] Performing Lab: [facility]OSPITALRUAB HOSPITALTRN [facility] HOSPITALUSETS [address] [address] CHOLESTEROL 168 mg/dL TRIGLYCERIDE 70 mg/dL 0-150 LDL calculated 115 mg/dL 0-129 CHOL/HDL 4.3 HDL CHOLESTEROL 39 mg/dL L 40-60 Jan 06, 2024 09:55 AM [place] VITAMIN D (25-OH) Specimen Type: SERUM No comment entered. Ordering Provider: BOY DELONG Report Released Date/Time: Nov 23, 2023 08:33 AM Reporting Lab: [facility] HOSPITALRL TRN [facility] HOSPITALUSETS [facility] [address] [facility] [address] Performing Lab: [facility] HOSPITALRL TRN [facility] HOSPITALUSE[address] [address] VITAMIN D (25-OH) 23 ng/mL 20-50 Jan 06, 2024 09:55 AM [place] FERRITIN Specimen Type: SERUM No comment entered. Ordering Provider: BOY DELONG Report Released Date/Time: Nov 23, 2023 08:33 AM Reporting Lab: [facility]OSPITALRUAB HOSPITALTRN [facility] HOSPITALUSETS [facility] [address] [facility] [address] Performing Lab: [facility]PITALRUSA [facility] UN[facility]ITY HOSPITALN [facility] HOSPITALUSETS [address] [address] FERRITIN 214 ng/mL 20-300 Jan 06, 2024 09:55 AM [place] VITAMIN B12 Specimen Type: SERUM No comment entered. Ordering Provider: BOY DELONG Report Released Date/Time: Nov 23, 2023 08:33 AM Reporting Lab: [facility]OSPITALRUAB HOSPITALTRN [facility] HOSPITALUSETS [address] [address] Performing Lab: [facility] [address] [address] VITAMIN B12 636 pg/mL 200-900 Jan 06, 2024 09:55 AM [place] PSA Specimen Type: SERUM No comment entered. Ordering Provider: BOY DELONG Report Released Date/Time: Nov 23, 2023 08:33 AM Reporting Lab: [address] [address] Performing Lab: [address] [address] PSA 1.09 ng/mL 0.00-4.00 Jan 06, 2024 09:55 AM [place] CBC AND DIFF (AUTO) Specimen Type: BLOOD No comment entered. Ordering Provider: BOY DELONG Report Released Date/Time: Nov 23, 2023 08:33 AM Reporting Lab: [address] [address] Performing Lab: [address] [address] WBC 3.76 10*3/uL L 4.50-11.00 RBC 5.35 [...] 10*3/uL 0.00-0.00 Jan 06, 2024 09:55 AM [place] HEMOGLOBIN A1C PANEL Specimen Type: BLOOD Comment: Values obtained from A1C measurements can vary. For atypical A1C assays, a reported value of 7.0 could actually be between 6.72 and 7.28 if measured by a reference method. A reported value of 9.0 could actually be between 8.73 and 9.27. Ref: http://www.ngsp .org/CAPdata.as p Ordering Provider: BOY DELONG Report Released Date/Time: Nov 23, 2023 08:33 AM Reporting Lab: [address] [address] Performing Lab: [address] [address] HEMOGLOBIN A1C 5.5 4.0-5.6 Jan 06, 2024 09:55 AM [place] TSH Specimen Type: SERUM No comment entered. Ordering Provider: BOY DELONG Report Released Date/Time: Nov 23, 2023 08:33 AM Reporting Lab: [address] [address] Performing Lab: [address] [address] TSH 3.01 u[IU]/mL 0.35-5.00 Vital Signs: All taken on the encounter date This section contains inpatient and outpatient Vital Signs collected on the date of the Encounter. Date/Time Temperature Pulse Blood Pressure Respiratory Rate SP02 Pain Height Weight Body Mass Index Source Feb 03, 2024 03:59 PM 97 [place] Feb 03, 2024 03:58 PM 78 130/88 20 1 72 245.6 33 [place] Social History: Smoking Status (Most current) and Tobacco Use (All prior to encounter date) This section includes the most current, and the historical, smoking and tobacco- related health factors from the [place] facility where the Encounter took place. Current Smoking Status This section includes the most current smoking, or tobacco-related health factor, from the [place] facility where the Encounter took place. Date/Time Current Smoking Status Comment Matthew blankenship Jun 10, 2023 11:30 AM [facility] NEVER USED [place] Tobacco Use History This section includes a history of the smoking, or tobacco-related health factors, that were collected on or before the date of the Encounter. The data comes from the [place] facility where the Encounter took place. Date/Time Smoking Status/Tobacco Use Comment F acility May 14, 2022 11:30 AM [facility]-TO[facility] NEVER USED [place] Mar 27, 2021 11:00 AM [place]-TO[facility]ACCO NEVER USED [place] Radiology Reports: +/- 30 days of the [...] 2024 11:27 AM KNEE 3 VIEWS (LEFT): SAMEER HONGRYL SMILEY [id number] -1960 M Ex Date: JAN 10, 2024@11:27 Req Phys: BOY DELONG Loc: CWM/SO/PACT 3 WH (Req'g Loc) Im Loc: [facility] 1 Service: [place] [address] (Case [id number] COMPLETE) KNEE 3 VIEWS (LEFT) (RAD Detailed) CPT:28464 Reason for Study: left knee pain Clinical History: any OA or joint erosions? did have gout L knee Report Status: Verified Date Reported: JAN 10, 2024 Date Verified: JAN 10, 2024 [place] [employer] Supervisor E-Sig: Report: KNEE 3 VIEWS (LEFT) COMPARISON: [...] the right knee demonstrates severe medial and [id number] lateral tibiofemoral compartment joint degeneration, similar to [...] to prior. READING PHYSICIAN: Karon Blount M.D. -[phone] 01/10/2024 11:58 EST [facility] National Teleradiology Program [phone] (For Medical Practitioner Use Only) Attention Patients / Veterans: If you have questions or concerns about these test results, please contact your ordering provider or primary care team. Primary Diagnostic Code: NO ALERT REQUIRED Primary Interpreting Staff: RADIOLOGY,OUTSIDE SERVICE, Staff Physician / RADIOLOGY,OUTSIDE SERVICE [facility] Jan 10, 2024 11:[address] MAXILLOFACIAL W/O CONT: LUPILLO HONG [id number] -1960 M Ex Date: JAN 10, 2024@11:15 Req Phys: BOY DELONG Loc: CWM/SO/PACT 3 WH (Req'g Loc) Img Loc: [facility]/CT Service: [place] [facility] [place] [address] (Case [id number] COMPLETE) CT MAXILLOFACIAL W/O CONT (CT Detailed) CPT:61002 Reason for Study: post nasal drip Clinical History: always cleasring thraot Report Status: Verified Date Reported: JAN 10, 2024 Date Verified: JAN 10, 2024 [place] [employer] Supervisor E-Sig: Report: MAXILLOFACIAL CT WITHOUT IV CONTRAST/CT [...] commentary as above. READING PHYSICIAN: Boy Sun -[phone] 01/10/2024 16:06 [facility] National Teleradiology Program [phone] (For Medical Practitioner Use Only) Attention Patients / Veterans: If you have questions or concerns about these test results, please contact your ordering provider or primary care team. Primary Diagnostic Code: NO ALERT REQUIRED Primary Interpreting Staff: RADIOLOGY,OUTSIDE SERVICE, Staff Physician / RADIOLOGY,OUTSIDE SERVICE [facility] Jan 10, 2024 11:[address] THORAX W/O CONT: LUPILLO HONG [id number] -1960 M Exm Date: JAN 10, 2024@11:15 Req Phys: BALJEETBOY [place] Loc: CWM/SO/PACT 3 WH (Req'g Loc) Img Loc: [facility]/CT Service: Unknown [facility] [place] [address] (Case 84 COMPLETE) CT THORAX W/O CONT (CT Detailed) CPT:87313 Reason for Study: chest tightness Clinical History: post nasal drip coughing echo and ekg of heart neg for cardiac pathology back in may 2023 any signs interstitial lung disease? Report Status: Verified Date Reported: JAN 10, 2024 Date Verified: JAN 10, 2024 [place] [employer] Supervisor E-Sig: Report: CT OF THE CHEST WITHOUT [...] as detailed above. READING PHYSICIAN: Boy Sun -[phone] 01/10/2024 17:01 EST [facility] [employer] Teleradiology [facility] [phone] (For Medical Practitioner Use Only) Attention Patients / Veterans: If you have questions or concerns about these test results, please contact your ordering provider or primary care team. Primary Diagnostic Code: SIGNIFICANT ABNORMALITY, ATTN NEEDED Primary Interpreting Staff: RADIOLOGY,OUTSIDE SERVICE, Staff Physician / RADIOLOGY,OUTSIDE SERVICE [place] [facility] Encounter Notes: All associated encounter notes This section contains the clinical notes associated to the Encounter. Date/Time Encounter Note(s) Provider Source Feb 03, 2024 03:59 PM PREVENTIVE MEDICIN E NURSING NOTE: LOCAL TITLE: CLINICAL REMINDERS/NURSING STANDARD TITLE: PREVENTIVE MEDICINE NURSING NOTE DATE OF NOTE: FEB 03, 2024@15:59 ENTRY DATE: FEB 03, 2024@15:59:41 AUTHOR: DRE PEREIRA EXP KENNEDYIGNER: URGENCY: STATUS: COMPLETED Nursing Clinical Reminders not due this visit. /ivone/ DRE PEREIRA LPN LPN Signed: 02/03/2024 16:00 DRE PEREIRA [place] Feb 03, 2024 03:46 PM PHYSICIAN ASSISTAN T NOTE: LOCAL TITLE: PA NOTE STANDARD TITLE: PHYSICIAN TEXTILE BROKER NOTE DATE OF NOTE: FEB 03, 2024@15:46 ENTRY DATE: FEB 03, 2024@15:46:06 AUTHOR: BOY DELONG EXP KENNEDYIGNER: URGENCY: STATUS: COMPLETED S - here to review labs, rads O - LABS: reviewed w/ pt RADS: reviewed w/ pt A/P - Degen Arthritis L-Spine and Sciatica (X-Ray of L-Spine Done [place]2021) - CON: PT OA, Both Knees - CON: Ortho Eval pending Any Rheumatologic Reason for Diffuse Arthralgias? - LABS: Rheum-Oriented Labs Chronic Rhino-Sinusitis - RADS: Maxilo-Fac CT Valente DEC 28: Minimal Mucosal Thickening CT of Lungs DEC 28 [place] Neg for Intersitial Lung Disease or Identifiable Restrictive Processes - cont Anti-Histamine - cont Flonase Luis Felipe Inh RTC JULY 29 - labs before Medication Reconciliation: Outpatient: Has the patient been taking medications as documented in the EMLR? YES: The patient has been taking medications as documented in the EMLR. Essential Medication List for Review used to complete this medication reconciliation. INCLUDED IN THIS LIST: Alphabetical list of active outpatient prescriptions dispensed from this [place] (local) and dispensed from another [place] or [facility] facility (remote) as well as inpatient orders [...] provider. /ivone/ BOY DELONG PA-C STAFF PHYSICIAN TEXTILE BROKER Signed: 02/03/2024 16:07 BOY DELONG
--- OUTSIDE RECORDS SUMMARY | 2024-03-02 08:57 | XMS_ITS ---
Author Name [facility] [place] [facility] [place] Organization [facility] [place] Address [address] [place] [address] Care Team Providers Care Scenario Writer Name Role Phone BOY TRUONG Primary Care [...] [facility] Mar 07, 2020 [facility] [id number] MARGARETH HONG RRYL PATIENT Selected Encounter [...] 2024 03:30 PM AMBULATORY - MEDICINE [facility] Mar 01, 2024 11:00 AM [facility] [place] [facility] Apr 06, 2024 10:00 AM [facility] [place]I[facility] [facility] May 14, 2024 10:30 AM AMBULATORY - MEDICINE [facility] NTRL [facility] Active, Pending, and Scheduled Orders This section includes a listing of several types of active, pending, and scheduled orders, including clinic medications orders, diagnostic test orders, procedure orders and consult orders; where the start date of the order is 45 days before the date of the Encounter or 45 days after the date of theEncounter. The data comes from all [place] treatment facilities. Test Date/Time Test Type Test Details Facility Name Jan 13, 2024 01:37 PM Consult Order COMMUNITY CARE-ORTHO SURGICAL Cons Environmental Engineering Assistant's [facility] Feb 03, 2024 03:52 PM Consult Order PHYSICAL T HERAPY/SPOPC OUTPT Cons Environmental Engineering Assistant's Choice [facility] Lab Results: +/- 30 days of the [...] Range Comment Feb 16, 2024 11:13 AM [facility] HLA-B27 (QU) Specimen Type: BLOOD Comment: Test Performed by [facility], [facility], [address] [place] [address] Rajesh Doss M.D., Ph.D., Director of Laboratories , CLIA [id number] TEST PERFORMED AT: , Ordering Provider: BOY TRUONG Report Released Date/Time: Feb 03, 2024 03:52 PM Reporting Lab: [facility] [address] [facility] [address] Performing Lab: [facility] [address] [address] HLA-B27 Negative Negative Feb 16, 2024 11:13 AM [facility] RHEUMATOID FACTOR Specimen Type: SERUM No comment entered. Ordering Provider: BOY TRUONG Report Released Date/Time: Feb 03, 2024 03:52 PM Reporting Lab: [facility] [address] [facility] [address] Performing Lab: [facility] [address] [facility] [address] RHEUMATOID FACTOR <15 0-15 Feb 16, 2024 11:13 AM [facility] MICHA SCREEN/TITER Specimen Type: SERUM Comment: 2+ Cytoplasmic staining observed. Ordering Provider: BOY TRUONG Report Released Date/Time: Feb 03, 2024 03:52 PM Reporting Lab: [address] [address] Performing Lab: [address] [address] MICHA SCREEN NEG NEG <1:40 Feb 16, 2024 11:13 AM [facility] C REACTIVE PROTEIN HS (WROX) Specimen T ype: SERUM Comment: Reference range changed on 08/25/10 [facility] reference ranges for ages >17 years: hsCRP in mg/L Risk According to AHA/CDC Guidelines <1.0 Lower relative cardiovascular risk. 1.0-3.0 Average cardiovascular risk. 3.1-10.0 Higher cardiovascular risk. Consider retesting in two weeks to exclude a benign transient elevation in the baseline CRP value secondary to infection or inflammation. >10.0 Persistent elevation, upon retesting, may be associated with infection and inflammation. Ordering Provider: BOY TRUONG Report Released Date/Time: Feb 03, 2024 03:52 PM Reporting Lab: [address] [address] Performing Lab: [facility] [address] [facility] [address] C REACTIVE PROTEIN HS (WROX) 6.46 mg/L See eval. Feb 16, 2024 11:13 AM [facility] SED RATE, AUTOMATED Specimen Type: BLOOD No comment entered. Ordering Provider: BOY TRUONG Report Released Date/Time: Feb 03, 2024 03:52 PM Reporting Lab: [address] [address] Performing Lab: [address] [address] SED RATE, AUTOMATED 3 mm/h 0-20 Jan 06, 2024 10:11 AM [facility] MICROALBUMIN CREATININE RATIO PANEL Spe cimen Type: URINE No comment entered. Ordering Provider: BOY TRUONG Report Released Date/Time: Nov 23, 2023 08:33 AM Reporting Lab: [address] [address] Performing Lab: [address] [address] MICROALBUMIN/C REATININE RATIO 13.8 mg/g 0-29.9 MICROALBUMIN,Q UANTITATIVE 2.5 mg/dL RR UNAVAIL CREATININE URINE 180.82 mg/dL Jan 06, 2024 10:11 AM [facility] URINALYSIS Specimen Type: URINE Comment: If Glucose = >500 and Ketones are positive, please alert the Physician. Ordering Provider: BOY TRUONG Report Released Date/Time: Nov 23, 2023 08:33 AM Reporting Lab: [address] [address] Performing Lab: [address] [address] UA COLOR Light-Yellow Yellow UA APPEARANCE Clear Clear UA GLUCOSE Normal mg/dL Negative UA KETONES NEGATIVE mg/dL Negative UA BLOOD NEGATIVE mg/dL Negative UA PROTEIN 10 mg/dL Negative UA NITRITE NEGATIVE mg/dL Negative UA BILIRUBIN NEGATIVE mg/dL Negative UA SPECIFIC GRAVITY 1.024 H 1.016-1.02 2 UA pH 5.5 5.0-9.0 UA UROBILINOGEN Normal mg/dL <2.0 UA LEUKOCYTE NEGATIVE Negative Jan 06, 2024 09:55 AM [facility] URIC ACID Specimen Type: SERUM No comment entered. Ordering Provider: BOY TRUONG Report Released Date/Time: Nov 23, 2023 08:33 AM Reporting Lab: [address] [address] Performing Lab: [address] [address] URIC ACID 5.7 mg/dL 3.5-7.2 Jan 06, 2024 09:55 AM [facility] CALCIUM Specimen Type: SERUM No comment entered. Ordering Provider: BOY TRUONG Report Released Date/Time: Nov 23, 2023 08:33 AM Reporting Lab: [facility] [address] [facility] [address] Performing Lab: [facility] [address] [facility] [address] CALCIUM 9.0 mg/dL 8.5-10.2 Jan 06, 2024 09:55 AM [facility] BASIC METABOLIC PANEL (fasting) Specime n Type: SERUM No comment entered. Ordering Provider: BOY TRUONG Report Released Date/Time: Nov 23, 2023 08:33 AM Reporting Lab: [facility] [address] [facility] [address] Performing Lab: [address] [address] UREA NITROGEN 18 mg/dL 7-25 GLUCOSE 108 mg/dL H 65-100 SODIUM 140 mmol/L 135-145 POTASSIUM 3.9 mmol/L 3.5-5.0 CHLORIDE 111 mmol/L H 100-110 CO2 21 meq/L 20-30 CREATININE, Serum 1.13 mg/dL 0.50-1.40 eGFR(CKD-EPI 2020) 74 mL/min >60 Jan 06, 2024 09:55 AM [facility] LIPID PANEL FASTING Specimen Type: SERUM No comment entered. Ordering Provider: BOY TRUONG Report Released Date/Time: Nov 23, 2023 08:33 AM Reporting Lab: [facility] [address] [facility] [address] Performing Lab: [address] [address] CHOLESTEROL 168 mg/dL TRIGLYCERIDE 70 mg/dL 0-150 LDL calculated 115 mg/dL 0-129 CHOL/HDL 4.3 HDL CHOLESTEROL 39 mg/dL L 40-60 Jan 06, 2024 09:55 AM [facility] LIVER FUNCTION Specimen Type: SERUM No comment entered. Ordering Provider: BOY TRUONG Report Released Date/Time: Nov 23, 2023 08:33 AM Reporting Lab: [facility] [address] [facility] [address] Performing Lab: [facility] [address] [facility] [address] PROTEIN,TOTAL 6.8 g/dL 6.0-8.3 ALBUMIN 3.9 g/dL 3.5-5.0 ALKALINE PHOSPHATASE 66 U/L 40-150 AST 21 U/L 5-34 ALT 34 U/L BILIRUBIN, TOTAL 0.4 mg/dL 0.2-1.2 Jan 06, 2024 09:55 AM [facility] VITAMIN D (25-OH) Specimen Type: SERUM No comment entered. Ordering Provider: BOY TRUONG Report Released Date/Time: Nov 23, 2023 08:33 AM Reporting Lab: [facility] [address] Performing Lab: [facility] [address] [address] VITAMIN D (25-OH) 23 ng/mL 20-50 Jan 06, 2024 09:55 AM [facility] FERRITIN Specimen Type: SERUM No comment entered. Ordering Provider: BOY TRUONG Report Released Date/Time: Nov 23, 2023 08:33 AM Reporting Lab: [facility] [address] [facility] [address] Performing Lab: [facility] [address] [address] FERRITIN 214 ng/mL 20-300 Jan 06, 2024 09:55 AM [facility] VITAMIN B12 Specimen Type: SERUM No comment entered. Ordering Provider: BOY TRUONG Report Released Date/Time: Nov 23, 2023 08:33 AM Reporting Lab: [facility] [address] [facility] [address] Performing Lab: [facility]ITAL[facility]ITAL[facility]ETS [address] [address] VITAMIN B12 636 pg/mL 200-900 Jan 06, 2024 09:55 AM [facility] PSA Specimen Type: SERUM No comment entered. Ordering Provider: BOY TRUONG Report Released Date/Time: Nov 23, 2023 08:33 AM Reporting Lab: [facility] [address] [address] Performing Lab: [address] [address] PSA 1.09 ng/mL 0.00-4.00 Jan 06, 2024 09:55 AM [facility] CBC AND DIFF (AUTO) Specimen Type: BLOOD No comment entered. Ordering Provider: BOY TRUONG Report Released Date/Time: Nov 23, 2023 08:33 AM Reporting Lab: [address] [address] Performing Lab: [address] [address] WBC 3.76 10*3/uL L 4.50-11.00 RBC 5.35 [...] 10*3/uL 0.00-0.00 Jan 06, 2024 09:55 AM [facility] HEMOGLOBIN A1C PANEL Specimen Type: BLOOD Comment: Values obtained from A1C measurements can vary. For atypical A1C assays, a reported value of 7.0 could actually be between 6.72 and 7.28 if measured by a reference method. A reported value of 9.0 could actually be between 8.73 and 9.27. Ref: http://www.ngsp .org/CAPdata.as p Ordering Provider: BOY TRUONG Report Released Date/Time: Nov 23, 2023 08:33 AM Reporting Lab: [address] [address] Performing Lab: [address] [address] HEMOGLOBIN A1C 5.5 4.0-5.6 Jan 06, 2024 09:55 AM [facility] TSH Specimen Type: SERUM No comment entered. Ordering Provider: BOY TRUONG Report Released Date/Time: Nov 23, 2023 08:33 AM Reporting Lab: [address] [address] Performing Lab: [address] [address] TSH 3.01 u[IU]/mL 0.35-5.00 Radiology Reports: +/- [...] the Encounter. The data comes from all [place] treatment facilities. Date/Time Radiology Report Provider Source Jan 10, 2024 11:27 AM KNEE 3 VIEWS (LEFT): GELYLUPILLO [id number] -1960 M Ex Date: JAN 10, 2024@11:27 Req Phys: BOY TRUONG Loc: CWM/SO/PACT 3 WH (Req'g Loc) Img Loc: [facility]BUILDING 1 Service: [place] [address] (Case [id number] COMPLETE) KNEE 3 VIEWS (LEFT) (RAD Detailed) CPT:51370 Reason for Study: left knee pain Clinical History: any OA or joint erosions? did have gout L knee Report Status: Verified Date Reported: JAN 10, 2024 Date Verified: JAN 10, 2024 Community Health Educator E-Sig: Report: KNEE 3 VIEWS (LEFT) COMPARISON: [...] the right knee demonstrates severe medial and cxuc-io-icyjrggu lateral tibiofemoral compartment joint degeneration, similar to [...] are similar to prior. READING PHYSICIAN: Karon lBount M.D. -[phone] 01/10/2024 11:58 EST [facility] National Teleradiology Program [phone] (For Medical Practitioner Use Only) Attention Patients / Veterans: If you have questions or concerns about these test results, please contact your ordering provider or primary care team. Primary Diagnostic Code: NO ALERT REQUIRED Primary Interpreting Staff: RADIOLOGY,OUTSIDE SERVICE, Staff Physician / RADIOLOGY,OUTSIDE SERVICE [place] [facility] [facility] Jan 10, 2024 11:[address] MAXILLOFACIAL W/O CONT: LUPILLO HONG [id number] -1960 M Exm Date: JAN 10, 2024@11:15 Req Phys: BOY TRUONG Loc: CWM/SO/PACT 3 WH (Req'g Loc) Img Loc: [facility]/CT Service: Unknown [place] [facility] [place] [address] (Case [id number] COMPLETE) CT MAXILLOFACIAL W/O CONT (CT Detailed) CPT:07678 Reason for Study: post nasal drip Clinical History: always cleasring thraot Report Status: Verified Date Reported: JAN 10, 2024 Date Verified: JAN 10, 2024 Community Health Educator E-Sig: Report: MAXILLOFACIAL CT WITHOUT IV CONTRAST/CT OF THE PARANASAL SINUSES WITHOUT IV CONTRAST: INDICATION: Post nasal drip. Patient reportedly always clearing throat. TECHNIQUE: Volumetric CT acquisition through the maxillofacial structures/paranasal sinuses, with axial, coronal and sagittal reformats, was performed at the local [place] facility. 159 images were received by the [place] National Teleradiology Program (NTP) for interpretation. RADIATION [...] commentary as above. READING PHYSICIAN: Boy Sun -[phone] 01/10/2024 16:06 EST [facility] National Teleradiology Program [phone] (For Medical Practitioner Use Only) Attention Patients / Veterans: If you have questions or concerns about these test results, please contact your ordering provider or primary care team. Primary Diagnostic Code: NO ALERT REQUIRED Primary Interpreting Staff: RADIOLOGY,OUTSIDE SERVICE, Staff Physician / RADIOLOGY,OUTSIDE SERVICE [facility] Jan 10, 2024 11:[address] THORAX W/O CONT: LUPILLO HONG [id number] -1960 M Exm Date: JAN 10, 2024@11:15 Req Phys: BOY TURONG Loc: CWM/SO/PACT 3 WH (Req'g Loc) Img Loc: [facility]/CT Service: [place] [address] (Case 84 COMPLETE) CT THORAX W/O CONT (CT Detailed) CPT:94649 Reason for Study: chest tightness Clinical History: post nasal drip coughing echo and ekg of heart neg for cardiac pathology back in may 2023 any signs interstitial lung disease? Report Status: Verified Date Reported: JAN 10, 2024 Date Verified: JAN 10, 2024 Community Health Educator E-Sig: Report: CT OF THE CHEST WITHOUT IV CONTRAST INDICATION: Chest tightness, post nasal drip, coughing. Assess for signs of interstitial lung disease. TECHNIQUE: Volumetric CT acquisition through the chest, with axial, coronal and sagittal reformats, was performed at the local [place] facility. 1194 images were received by the [place] National Teleradiology Program (NTP) for interpretation. RADIATION [...] as detailed above. READING PHYSICIAN: Boy Sun -[phone] 01/10/2024 17:01 [facility] National Teleradiology Program [phone] (For Medical Practitioner Use Only) Attention Patients / Veterans: If you have questions or concerns about these test results, please contact your ordering provider or primary care team. Primary Diagnostic Code: SIGNIFICANT ABNORMALITY, ATTN NEEDED Primary Interpreting Staff: RADIOLOGY,OUTSIDE SERVICE, Staff Physician / RADIOLOGY,OUTSIDE SERVICE [facility] Encounter Notes: All associated encounter notes This section contains the clinical notes associated to the Encounter. Date/Time Encounter Note(s) Provider Source Jan 23, 2024 03:24 PM LETTERS: LOCAL TITLE: PATIENT LETTER (T) STANDARD TITLE: LETTERS DATE OF NOTE: JAN 23, 2024@15:24 ENTRY DATE: JAN 23, 2024@15:24:24 AUTHOR: ANITA MANUELIGNER: URGENCY: STATUS: COMPLETED [employer] [facility] Toll Free Number Primary Care Telephone Assistance can be reached at extension [phone] [facility] scheduling can be reached at extension [phone] [facility] scheduling can be reached at ext [phone] January 23, 2024 LUPILLO HONG [address] [place], [place], [address] [place], Our goal at the [facility] is to provide you with quality medical care. Our records indicate that you cancelled an appointment January 13, 2024 with your Primary Care Provider Boy Truong PA-C. Please call to reschedule this appointment at: [phone] Tuesday through Tuesday 8:00 am to 4:00 pm. We look forward to seeing you at your next appointment. Sincerly, Office Staff for: BOY TRUONG Primary Care Provider [facility] [address] [place] [address] T [phone] F [phone] Sincerely, Your Primary Care Team [facility] [address] [address] [place] [address] [facility] [address] [place] [address] [place] [address] [phone] [facility] [address] [facility] [place] [phone] [place] [address] JT MANUEL [facility]
--- OUTSIDE RECORDS SUMMARY | 2024-03-02 08:57 | XMS_ITS ---
Author Name [facility] [facility] [place] Address [address] [place] [address] Care Team Providers Care Manager Retirement Name Role Phone BOY DELONG Primary Care [...] RX PRESCRIPT ION HEALT H [facility] Mar 07, 2020 [facility] [id number] MARGARETH HONG RRYL PATIENT Selected Encounter This section includes the information on record at [place] for the Encounter. Date/Time Encounter Type Encounter Description Reason Pro vider Source Jun 02, 2023 09:34 AM Outpatient Encounter ADMIN PAT ACTIVTIES ([facility]) [facility] Encounter Template Text not used by [place] Plan of Treatment: Future Appointments (+ 6 [...] 17, 2023 08:00 AM AMBULATORY - PSYCHIATRY [facility] Jun 21, 2023 08:00 AM AMBULATORY - PSYCHIATRY [facility] Jun 24, 2023 11:00 AM AMBULATORY - NONE [facility] [place] [facility] Jun 24, 2023 11:30 AM AMBULATORY - [facility]AB [facility]IN [facility] [place] [facility] July 22, 2023 01:00 PM AMBULATORY - PSYCHIATRY [facility] August 03, 2023 08:00 AM AMBULATORY - REHAB MEDICIN [facility] [place] August 05, 2023 09:00 AM AMBUL[facility]ORY [facility] [place] [facility] August 05, 2023 03:00 PM AMBULAT[facility] [place] [facility] Aug 11, 2023 10:40 AM AMBULATORY - MEDICINE [facility] [place] [facility] Aug 19, 2023 10:00 AM AMBULATORY - REHAB MEDICIN E [place] Sep 09, 2023 09:30 AM AMBULATORY - [facility] [place] [facility] Oct 14, 2023 09:30 AM [...] [facility] [facility] Lab Results: +/- 30 days [...] Range Comment Jun 09, 2023 08:32 AM [place] VITAMIN D (25-OH) Specimen Type: SERUM No comment entered. Ordering Provider: BOY DELONG Report Released Date/Time: Dec 14, 2022 10:56 AM Reporting Lab: [address] [address] Performing Lab: [address] [address] VITAMIN D (25-OH) 21 ng/mL 20-50 Jun 09, 2023 08:32 AM [place] URINALYSIS Specimen Type: URINE Comment: If Glucose = >500 and Ketones are positive, please alert the Physician. Ordering Provider: BOY DELONG Report Released Date/Time: Dec 14, 2022 10:56 AM Reporting Lab: [address] [address] Performing Lab: [address] [address] UA COLOR Light-Yellow Yellow UA APPEARANCE Clear Clear UA GLUCOSE NEGATIVE mg/dL Negative UA KETONES NEGATIVE mg/dL Negative UA BLOOD NEGATIVE mg/dL Negative UA PROTEIN NEGATIVE mg/dL Negative UA NITRITE NEGATIVE mg/dL Negative UA BILIRUBIN NEGATIVE mg/dL Negative UA SPECIFIC GRAVITY 1.015 L 1.016-1.02 2 UA pH 5.5 5.0-9.0 UA UROBILINOGEN <2.0 mg/dL <2.0 UA LEUKOCYTE NEGATIVE Negative Jun 09, 2023 08:32 AM [place] VITAMIN B12 Specimen Type: SERUM No comment entered. Ordering Provider: BOY DELONG Report Released Date/Time: Dec 14, 2022 10:56 AM Reporting Lab: [address] [address] Performing Lab: [address] [address] VITAMIN B12 580 pg/mL 200-900 Jun 09, 2023 08:32 AM [place] FERRITIN Specimen Type: SERUM No comment entered. Ordering Provider: BOY DELONG Report Released Date/Time: Dec 14, 2022 10:56 AM Reporting Lab: [address] [address] Performing Lab: [address] [address] FERRITIN 199 ng/mL 20-300 Jun 09, 2023 08:32 AM [place] CBC AND DIFF (AUTO) Specimen Type: BLOOD No comment entered. Ordering Provider: BOY DELONG Report Released Date/Time: Dec 14, 2022 10:56 AM Reporting Lab: [address] [address] Performing Lab: [address] [address] WBC 4.38 10*3/uL L 4.50-11.00 RBC 5.42 10*6/uL 4.23-5.66 HGB 15.0 g/dL 12.8-17 HCT 44.9 39.2-50.4 MCV 82.8 fL 82-99 MCHC 33.4 g/dL 30.8-35.1 PLT 265 10*3/uL 140-360 RDW-CV 12.8 12.0-16.0 [place], Abs 0.37 10*3/uL 0.30-1.10 MCH 27.7 pg 26.2-32.6 Neut % 56.0 43.7-75.8 Lymph % 31.7 14.0-42.3 [place] % 8.4 5.1-13.7 Eos % 3.0 0.4-6.8 Baso % 0.7 0.1-2.0 Neut, Abs 2.45 10*3/uL 2.20-7.60 Lymph, Abs 1.39 10*3/uL 1.00-3.20 Eos, Abs 0.13 10*3/uL 0.03-0.44 Baso, Abs 0.03 10*3/uL 0.01-0.13 Immature Gran % 0.2 0.0-0.7 Immature Gran, Abs 0.01 10*3/uL 0.00-0.06 Jun 09, 2023 08:32 AM [place] RETICULOCYTES Specimen Type: BLOOD No comment entered. Ordering Provider: BOY DELONG Report Released Date/Time: Dec 14, 2022 10:56 AM Reporting Lab: [facility] [address] [facility] [address] Performing Lab: [address] [address] RETIC % 1.1 0.6-2.0 RETIC, ABS 61.8 10*3/uL 30.0-90.0 Ret-He % 31.3 27.9-42.0 Jun 09, 2023 08:32 AM [place] HEMOGLOBIN A1C PANEL Specimen Type: BLOOD Comment: [...] Dec 14, 2022 10:56 AM Reporting Lab: [facility] [address] Performing Lab: [facility] [address] [address] HEMOGLOBIN A1C 5.8 H 4.0-5.6 Jun 09, 2023 08:32 AM [place] TSH Specimen Type: SERUM No comment entered. Ordering Provider: BOY DELONG Report Released Date/Time: Dec 14, 2022 10:56 AM Reporting Lab: [facility] [address] Performing Lab: [facility] [address] [address] TSH 2.27 u[IU]/mL 0.35-5.00 Jun 09, 2023 08:32 AM [place] PSA Specimen Type: SERUM No comment entered. Ordering Provider: BOY DELONG Report Released Date/Time: Dec 14, 2022 10:56 AM Reporting Lab: [facility]ATRN [place] [address] Performing Lab: [facility] [address] PSA 2.13 ng/mL 0.00-4.00 Jun 09, 2023 08:32 AM [place] BASIC METABOLIC PANEL (fasting) Specime n Type: SERUM No comment entered. Ordering Provider: BOY DELONG Report Released Date/Time: Dec 14, 2022 10:56 AM Reporting Lab: [facility] [address] [address] Performing Lab: [address] [address] UREA NITROGEN 15 mg/dL 7-25 GLUCOSE 113 mg/dL H 65-100 SODIUM 141 mmol/L 135-145 POTASSIUM 3.9 mmol/L 3.5-5.0 CHLORIDE 108 mmol/L 100-110 CO2 24 meq/L 20-30 CREATININE, Serum 1.17 mg/dL 0.50-1.40 eGFR(CKD-EPI 2020) 71 mL/min >60 Jun 09, 2023 08:32 AM [place] LIPID PANEL FASTING Specimen Type: SERUM No comment entered. Ordering Provider: BOY DELONG Report Released Date/Time: Dec 14, 2022 10:56 AM Reporting Lab: [address] [address] Performing Lab: [address] [address] CHOLESTEROL 173 mg/dL TRIGLYCERIDE 81 mg/dL 0-150 LDL calculated 118 mg/dL 0-129 CHOL/HDL 4.4 HDL CHOLESTEROL 39 mg/dL L 40-60 Jun 09, 2023 08:32 AM [place] LIVER FUNCTION Specimen Type: SERUM No comment entered. Ordering Provider: BOY DELONG Report Released Date/Time: Dec 14, 2022 10:56 AM Reporting Lab: [address] [address] Performing Lab: [address] [address] PROTEIN,TOTAL 6.9 g/dL 6.0-8.3 ALBUMIN 4.0 g/dL 3.5-5.0 ALKALINE PHOSPHATASE 66 U/L 40-150 AST 19 U/L 5-34 ALT 27 U/L BILIRUBIN, TOTAL 0.5 mg/dL 0.2-1.2 Jun 09, 2023 08:32 AM [place] URIC ACID Specimen Type: SERUM No comment entered. Ordering Provider: BOY DELONG Report Released Date/Time: Dec 14, 2022 10:56 AM Reporting Lab: [address] [address] Performing Lab: [facility] [address] [facility] [address] URIC ACID 5.6 mg/dL 3.5-7.2 Jun 09, 2023 08:32 AM [place] CALCIUM Specimen Type: SERUM No comment entered. Ordering Provider: BOY DELONG Report Released Date/Time: Dec 14, 2022 10:56 AM Reporting Lab: [facility] [address] [facility] [address] Performing Lab: [address] [address] CALCIUM 8.8 mg/dL 8.5-10.2 Radiology Reports: +/- 30 days of the [...] the Encounter. The data comes from all [facility] facilities. Date/Time Radiology Report Provider Source Jun 24, 2023 10:59 AM ABDOMINAL ULTRASOUND: JORDAN HONGL SMILEY [id number] -1960 M Exm Date: JUN 24, 2023@10:59 Req Phys: BOY DELONG Loc: CWM/SO/PACT 3 WH (Req'g Loc) Img Loc: ULTRASOUND Service: Unknown (Case [id number] COMPLETE) [facility] ABDOMEN [facility] ([place] Detailed) CPT:86836 Reason for Study: umbilical hernia Clinical History: need views before seeing karen trujillo Report Status: Verified Date Reported: JUN 25, 2023 Date Verified: JUN 25, 2023 Echo Vasc Tech E-Sig: Report: [facility] ABDOMEN [facility] [[place]] Clinical History: Umbilical hernia. Comparison: None [...] containing hernia. READING PHYSICIAN: Mikhail Andrews MD -[id number] 06/24/2023 23:15 PDT [facility] National Teleradiology Program [phone] (For Medical Practitioner Use Only) Attention Patients / Veterans: If you have questions or concerns about these test results, please contact your ordering provider or primary care team. Primary Diagnostic Code: NO ALERT REQUIRED Primary Interpreting Staff: RADIOLOGY,OUTSIDE SERVICE, Staff Physician / RADIOLOGY,OUTSIDE SERVICE [place] [facility] [place] [facility] Encounter [...] Patient Name: LUPILLO HONG Patient Primary Phone: [phone] Patient Primary [address]: [address] [place] [address] Patient : 1960 Patient Age: 62 Call Back Number: [phone] Caller/Recipient Relation to Patient: Self Administrative Administrative Note Reason: Lab / Imaging Results Administrative Note Comments: Vet calling in requesting results from echo as he hasn't heard from anyone yet /ivone/ JESSEE VALDOVINOS 1 [facility] Signed: 06/02/2023 09:34 Receipt Acknowledged By: 06/02/2023 10:06 /ivone/ Imelda Lutz RN Registered Nurse (RN) 06/02/2023 10:45 /ivone/ SUZETTE WOO LPN LICENSED PRACTICAL NURSE 06/02/2023 ADDENDUM STATUS: COMPLETED Results printed, given to PCP to call with results. Thanks /ivone/ Imelda Lutz RN Registered Nurse (RN) Signed: 06/02/2023 10:06 JESSEE PALBO [facility]
--- OUTSIDE RECORDS SUMMARY | 2024-03-02 08:57 | XMS_ITS | Encounter Summary ---
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 May 14, 2024 10:30 AM AMBULATORY - MEDICINE [facility] NTRL WSN [facility] Active, Pending, and Scheduled Orders This section includes a listing of several types of active, pending, and scheduled orders, including clinic medications orders, diagnostic test orders, procedure orders and consult orders; where the start date of the order is 45 days before the date of the Encounter or 45 days after the date of theEncounter. The data comes from all [place] treatment facilities. Test Date/Time Test Type Test Details Facility Name Jan 13, 2024 01:37 PM Consult Order COMMUNITY CARE-ORTHO SURGICAL Cons Information Technology [facility] Feb 03, 2024 03:52 PM Consult Order PHYSICAL T HERAPY/SPOPC OUTPT Cons Information Technology Director's Choice [facility] Lab Results: +/- 30 days of the encounter This section includes the Chemistry and Hematology Lab Results on record with [place] for the patient. Radiology Reports and Pathology Reports are provided separately, in subsequent sections. Lab Results This section contains the Chemistry/Hematology Results that were resulted 30 days before or 30 daysafter the date of the Encounter. Date/Time Source Result Type Result - Unit Interpretation Reference Range Comment Feb 16, 2024 11:13 AM [facility] HLA-B27 (QU) Specimen Type: BLOOD Comment: Test Performed by [employer] [employer] [facility], [address] [place] [address] Rajesh Doss M.D., Ph.D., Director of Laboratories , CLIA [id number] TEST PERFORMED AT: , Ordering Provider: BOY DELONG Report Released Date/Time: Feb 03, 2024 03:52 PM Reporting Lab: [facility] [address] [facility] [address] Performing Lab: [facility] [address] [address] HLA-B27 Negative Negative Feb 16, 2024 11:13 AM [facility] RHEUMATOID FACTOR Specimen Type: SERUM No comment entered. Ordering Provider: BOY DELONG Report Released Date/Time: Feb 03, 2024 03:52 PM Reporting Lab: [facility] [address] [facility] [address] Performing Lab: [facility] [address] [facility] [address] RHEUMATOID FACTOR <15 0-15 Feb 16, 2024 11:13 AM [facility] MICHA SCREEN/TITER Specimen Type: SERUM Comment: 2+ Cytoplasmic staining observed. Ordering Provider: BOY DELONG Report Released Date/Time: Feb 03, 2024 03:52 PM Reporting Lab: [address] [address] Performing Lab: [address] [address] MICHA SCREEN NEG NEG <1:40 Feb 16, 2024 11:13 AM [facility] C REACTIVE PROTEIN HS (WROX) Specimen T ype: SERUM Comment: Reference range changed on 08/25/10 [facility] reference ranges for ages >17 years: [...] Feb 03, 2024 03:52 PM Reporting Lab: [address] [address] Performing Lab: [facility] [address] [facility] [address] C REACTIVE PROTEIN HS (WROX) 6.46 mg/L See eval. Feb 16, 2024 11:13 AM [facility] SED RATE, AUTOMATED Specimen Type: BLOOD No comment entered. Ordering Provider: OBY DELONG Report Released Date/Time: Feb 03, 2024 03:52 PM Reporting Lab: [address] [address] Performing Lab: [address] [address] SED RATE, AUTOMATED 3 mm/h 0-20 Jan 06, 2024 10:11 AM [facility] MICROALBUMIN CREATININE RATIO PANEL Spe cimen Type: URINE No comment entered. Ordering Provider: BOY DELONG Report Released Date/Time: Nov 23, 2023 08:33 AM Reporting Lab: [address] [address] Performing Lab: [address] [address] MICROALBUMIN/C REATININE RATIO 13.8 mg/g 0-29.9 MICROALBUMIN,Q UANTITATIVE 2.5 mg/dL RR UNAVAIL CREATININE URINE 180.82 mg/dL Jan 06, 2024 10:11 AM [facility] URINALYSIS Specimen Type: URINE Comment: If Glucose = >500 and Ketones are positive, please alert the Physician. Ordering Provider: BOY DELONG Report Released Date/Time: Nov 23, 2023 08:33 AM Reporting Lab: [address] [address] Performing Lab: [address] [address] UA COLOR Light-Yellow Yellow UA APPEARANCE Clear Clear UA GLUCOSE Normal mg/dL Negative UA KETONES NEGATIVE mg/dL Negative UA BLOOD NEGATIVE mg/dL Negative UA PROTEIN 10 mg/dL Negative UA NITRITE NEGATIVE mg/dL Negative UA BILIRUBIN NEGATIVE mg/dL Negative UA SPECIFIC GRAVITY 1.024 H 1.016-1.02 2 UA pH 5.5 5.0-9.0 UA UROBILINOGEN Normal mg/dL <2.0 UA LEUKOCYTE NEGATIVE Negative Jan 06, 2024 09:55 AM [facility] URIC ACID Specimen Type: SERUM No comment entered. Ordering Provider: BOY DELONG Report Released Date/Time: Nov 23, 2023 08:33 AM Reporting Lab: [address] [address] Performing Lab: [address] [address] URIC ACID 5.7 mg/dL 3.5-7.2 Jan 06, 2024 09:55 AM [facility] BASIC METABOLIC PANEL (fasting) Specime n Type: SERUM No comment entered. Ordering Provider: BOY DELONG Report Released Date/Time: Nov 23, 2023 08:33 AM Reporting Lab: [facility] [address] [facility] [address] Performing Lab: [facility] [address] [facility] [address] UREA NITROGEN 18 mg/dL 7-25 GLUCOSE 108 mg/dL H 65-100 SODIUM 140 mmol/L 135-145 POTASSIUM 3.9 mmol/L 3.5-5.0 CHLORIDE 111 mmol/L H 100-110 CO2 21 meq/L 20-30 CREATININE, Serum 1.13 mg/dL 0.50-1.40 eGFR(CKD-EPI 2020) 74 mL/min >60 Jan 06, 2024 09:55 AM [facility] CALCIUM Specimen Type: SERUM No comment entered. Ordering Provider: BOY DELONG Report Released Date/Time: Nov 23, 2023 08:33 AM Reporting Lab: [facility] [address] [facility] [address] Performing Lab: [facility] [address] [facility] [address] CALCIUM 9.0 mg/dL 8.5-10.2 Jan 06, 2024 09:55 AM [facility] LIVER FUNCTION Specimen Type: SERUM No comment entered. Ordering Provider: BOY DELONG Report Released Date/Time: Nov 23, 2023 08:33 AM Reporting Lab: [facility] [address] [facility] [address] Performing Lab: [facility] [address] [address] PROTEIN,TOTAL 6.8 g/dL 6.0-8.3 ALBUMIN 3.9 g/dL 3.5-5.0 ALKALINE PHOSPHATASE 66 U/L 40-150 AST 21 U/L 5-34 ALT 34 U/L BILIRUBIN, TOTAL 0.4 mg/dL 0.2-1.2 Jan 06, 2024 09:55 AM [facility] LIPID PANEL FASTING Specimen Type: SERUM No comment entered. Ordering Provider: BOY DELONG Report Released Date/Time: Nov 23, 2023 08:33 AM Reporting Lab: [place] [facility] [address] [facility] [address] Performing Lab: [place] [facility] [address] [facility] [address] CHOLESTEROL 168 mg/dL TRIGLYCERIDE 70 mg/dL 0-150 LDL calculated 115 mg/dL 0-129 CHOL/HDL 4.3 HDL CHOLESTEROL 39 mg/dL L 40-60 Jan 06, 2024 09:55 AM [facility] VITAMIN D (25-OH) Specimen Type: SERUM No comment entered. Ordering Provider: BOY DELONG Report Released Date/Time: Nov 23, 2023 08:33 AM Reporting Lab: [place] [facility] [address] [facility] [address] Per[facility]: [facility] [address] [address] VITAMIN D (25-OH) 23 ng/mL 20-50 Jan 06, 2024 09:55 AM [facility] FERRITIN Specimen Type: SERUM No comment entered. Ordering Provider: BOY DELONG Report Released Date/Time: Nov 23, 2023 08:33 AM Reporting Lab: [facility] [address] [facility] [address] Performing Lab: [facility] [address] [address] FERRITIN 214 ng/mL 20-300 Jan 06, 2024 09:55 AM [facility] VITAMIN B12 Specimen Type: SERUM No comment entered. Ordering Provider: BOY DELONG Report Released Date/Time: Nov 23, 2023 08:33 AM Reporting Lab: [place] [facility] [address] [facility] [address] Performing Lab: [facility] [address] [address] VITAMIN B12 636 pg/mL 200-900 Jan 06, 2024 09:55 AM [facility] PSA Specimen Type: SERUM No comment entered. Ordering Provider: BOY DELONG Report Released Date/Time: Nov 23, 2023 08:33 AM Reporting Lab: [place] [facility] [address] [address] Performing Lab: [address] [address] PSA 1.09 ng/mL 0.00-4.00 Jan 06, 2024 09:55 AM [facility] CBC AND DIFF (AUTO) Specimen Type: BLOOD No comment entered. Ordering Provider: BOY DELONG Report Released Date/Time: Nov 23, 2023 08:33 AM Reporting Lab: [address] [address] Performing Lab: [address] [address] WBC 3.76 10*3/uL L 4.50-11.00 RBC 5.35 [...] 10*3/uL 0.00-0.00 Jan 06, 2024 09:55 AM [facility] HEMOGLOBIN A1C PANEL Specimen Type: BLOOD Comment: [...] Nov 23, 2023 08:33 AM Reporting Lab: [address] [address] Performing Lab: [address] [address] HEMOGLOBIN A1C 5.5 4.0-5.6 Jan 06, 2024 09:55 AM [facility] TSH Specimen Type: SERUM No comment entered. Ordering Provider: BOY DELONG Report Released Date/Time: Nov 23, 2023 08:33 AM Reporting Lab: [address] [address] Performing Lab: [address] [address] TSH 3.01 u[IU]/mL 0.35-5.00 Radiology Reports: +/- [...] the Encounter. The data comes from all [place] treatment facilities. Date/Time Radiology Report Provider Source Jan 10, 2024 11:27 AM KNEE 3 VIEWS (LEFT): GELYLUPILLO [id number] -1960 M Ex Date: JAN 10, 2024@11:27 Req Phys: BOY DELONG Loc: CWM/SO/PACT 3 WH (Req'g Loc) Img Loc: [facility]/BUILDING 1 Service: [place] [address] (Case [id number] COMPLETE) KNEE 3 VIEWS (LEFT) (RAD Detailed) CPT:27664 Reason for Study: left knee pain Clinical History: any OA or joint erosions? did have gout L knee Report Status: Verified Date Reported: JAN 10, 2024 Date Verified: JAN 10, 2024 [employer] Technician E-Sig: Report: KNEE 3 VIEWS (LEFT) [...] the right knee demonstrates severe medial and [id number] lateral tibiofemoral compartment joint degeneration, similar to [...] to prior. READING PHYSICIAN: Karon Blount M.D. -[id number] 01/10/2024 11:58 EST [facility] National Teleradiology Program [phone] (For Medical Practitioner Use Only) Attention Patients / Veterans: If you have questions or concerns about these test results, please contact your ordering provider or primary care team. Primary Diagnostic Code: NO ALERT REQUIRED Primary Interpreting Staff: RADIOLOGY,OUTSIDE SERVICE, Staff Physician / RADIOLOGY,OUTSIDE SERVICE [place] [facility] Jan 10, 2024 11:[address] THORAX W/O CONT: LUPILLO HONG [id number] -1960 M Exm Date: JAN 10, 2024@11:15 Req Phys: BOY DELONG Loc: CWM/SO/PACT 3 WH (Req'g Loc) Img Loc: [facility]/CT Service: [place] [facility] [place] [address] (Case 84 COMPLETE) CT THORAX W/O CONT (CT Detailed) CPT:33367 Reason for Study: chest tightness Clinical History: post nasal drip coughing echo and ekg of heart neg for cardiac pathology back in may 2023 any signs interstitial lung disease? Report Status: Verified Date Reported: JAN 10, 2024 Date Verified: JAN 10, 2024 [employer]tron[employer] Technician E-Sig: Report: CT OF THE CHEST WITHOUT IV CONTRAST INDICATION: Chest tightness, post nasal drip, coughing. Assess for signs of interstitial lung disease. TECHNIQUE: Volumetric CT acquisition through the chest, with axial, coronal and sagittal reformats, was performed at the local [place] facility. 1194 images were received by the [place] National Teleradiology Program (NTP) for interpretation. RADIATION [...] as detailed above. READING PHYSICIAN: Boy Sun -[id number] 01/10/2024 17:01 National Teleradiology Program [phone] (For Medical Practitioner Use Only) Attention Patients / Veterans: If you have questions or concerns about these test results, please contact your ordering provider or primary care team. Primary Diagnostic Code: SIGNIFICANT ABNORMALITY, ATTN NEEDED Primary Interpreting Staff: RADIOLOGY,OUTSIDE SERVICE, Staff Physician / RADIOLOGY,OUTSIDE SERVICE [facility] Jan 10, 2024 11:[address] MAXILLOFACIAL W/O CONT: LUPILLO HONG [id number] -1960 M Exm Date: JAN 10, 2024@11:15 Req Phys: BOY DELONG Loc: CWM/SO/PACT 3 WH (Req'g Loc) Img Loc: [facility]/CT Service: Unknown [place] [address] (Case [id number] COMPLETE) CT MAXILLOFACIAL W/O CONT (CT Detailed) CPT:63804 Reason for Study: post nasal drip Clinical History: always cleasring thraot Report Status: Verified Date Reported: JAN 10, 2024 Date Verified: JAN 10, 2024 [employer]tron[employer] Technician E-Sig: Report: MAXILLOFACIAL CT WITHOUT IV CONTRAST/CT OF THE PARANASAL SINUSES WITHOUT IV CONTRAST: INDICATION: Post nasal drip. Patient reportedly always clearing throat. TECHNIQUE: Volumetric CT acquisition through the maxillofacial structures/paranasal sinuses, with axial, coronal and sagittal reformats, was performed at the local [place] facility. 159 images were received by the [place] National Teleradiology Program (NTP) for interpretation. RADIATION [...] commentary as above. READING PHYSICIAN: Boy Sun -[phone] 01/10/2024 16:06 National Teleradiology Program [phone] (For Medical Practitioner Use Only) Attention Patients / Veterans: If you have questions or concerns about these test results, please contact your ordering provider or primary care team. Primary Diagnostic Code: NO ALERT REQUIRED Primary Interpreting Staff: RADIOLOGY,OUTSIDE SERVICE, Staff Physician / RADIOLOGY,OUTSIDE SERVICE [facility] Encounter Notes: All associated encounter notes [...] 01/24/2024 09:41 Receipt Acknowledged By: 01/25/2024 09:08 /barbara MANUEL Advanced Answering Service Agent ========= --- Original Document --- 01/24/24 PRIMARY CARE SECURE MESSAGING: ------Original Message -------- Sent: 01/23/2024 11:16 AM ET From: LUPILLO HONG To: Chelsea DELONG_PRIMARY CARE_[facility] Subject: General:cat scan hello, i would like to find out the results from my recent cat scans /ivone/ JT MANUEL Advanced Answering Service Agent Signed: 01/24/2024 08:49 01/24/2024 ADDENDUM STATUS: COMPLETED Worm Sorter called pt to R/S f/u 01/13/24 appt which pt cxl. Patient is requesting a telephone call (instead of a F2F appt) from PCP to discuss CT Scan results and Lab work done on 01/06/24 at time of routine appt. Worm Sorter stated this would be up to the PCP /ivone/ JT MANUEL Advanced Answering Service Agent Signed: 01/24/2024 08:58 Receipt Acknowledged By: 01/24/2024 09:42 /ivone/ Teja Lutz RN Registered Nurse (RN) 01/25/2024 ADDENDUM STATUS: UNSIGNED You may not VIEW this UNSIGNED Addendum. TEJA LUTZ [facility] [place] [facility] Jan 24, 2024 08:55 AM ADDENDUM: LOCAL TITLE: Addendum STANDARD TITLE: ADDENDUM DATE OF NOTE: JAN 24, 2024@08:55:04 ENTRY DATE: JAN 24, 2024@08:55:04 AUTHOR: ANITA MANUEL COSIGNER: URGENCY: STATUS: COMPLETED Worm Sorter called pt to R/S f/u 01/13/24 appt which pt cxl. Patient is requesting a telephone call (instead of a F2F appt) from PCP to discuss CT Scan results and Lab work done on 01/06/24 at time of routine appt. Worm Sorter stated this would be up to the PCP /ivone/ JT MANUEL Advanced Answering Service Agent Signed: 01/24/2024 08:58 Receipt Acknowledged By: 01/24/2024 09:42 /ivone/ Teja Lutz RN Registered Nurse (RN) ========= --- Original Document --- 01/24/24 PRIMARY CARE SECURE MESSAGING: ------Original Message -------- Sent: 01/23/2024 11:16 AM ET From: LUPILLO HONG To: Chelsea DELONG_PRIMARY CARE_[facility] Subject: General:cat scan [facility], i would like to find out the results from my recent cat scans /ivone/ JT MANUEL Advanced Answering Service Agent Signed: 01/24/2024 08:49 01/24/2024 ADDENDUM STATUS: COMPLETED PCP would like to discuss in person, please schedule with PCP /ivone/ Teja Lutz RN Registered Nurse (RN) Signed: 01/24/2024 09:41 Receipt Acknowledged By: * AWAITING SIGNATURE * JT MANUEL CHRISTIN E S [place] [facility] [place] [facility] Jan 24, 2024 [...] LUPILLO HONG To: Chelsea DELONG_PRIMARY CARE_[facility] Subject: General:cat scan jasmyn, i would like to find out the results from my recent cat scans /ivone/ JT MANUEL Advanced Answering Service Agent Signed: 01/24/2024 08:49 01/24/2024 ADDENDUM STATUS: COMPLETED Worm Sorter called pt to R/S f/u 01/13/24 appt which pt cxl. Patient is requesting a telephone call (instead of a F2F appt) from PCP to discuss CT Scan results and Lab work done on 01/06/24 at time of routine appt. Worm Sorter stated this would be up to the PCP /ivone/ JT MANUEL Advanced Answering Service Agent Signed: 01/24/2024 08:58 Receipt Acknowledged By: 01/24/2024 09:42 /ivone/ Teja Lutz RN Registered Nurse (RN) 01/24/2024 ADDENDUM STATUS: COMPLETED PCP would like to discuss in person, please schedule with PCP /ivone/ Teja Lutz RN Registered Nurse (RN) Signed: 01/24/2024 09:41 Receipt Acknowledged By: 01/25/2024 09:08 /barbara MANUEL Advanced Answering Service Agent 01/25/2024 ADDENDUM STATUS: COMPLETED Appt scheduled 02/03/24 /barbara MANUEL Advanced Answering Service Agent Signed: 01/25/2024 09:08 ANITA MANUEL CNTRL [facility]
--- OUTSIDE RECORDS SUMMARY | 2024-03-02 08:57 | XMS_ITS | Encounter Summary ---
Author Name [facility] Organization [facility] [place] [facility] [place] Address [address] [place] [id number] Care Team Providers Care Color Repairer Name Role Phone BOY DELONG Primary [...] ION HEALT [facility] Mar 07, 2020 [facility] [id number] MARGARETH HONG RRYL PATIENT Selected Encounter This section includes the information on record at [place] for the Encounter. Date/Time Encounter Type Encounter Description Reason Provider Source Jun 10, 2023 11:30 AM OFFICE O/P EST MOD 30 MIN PRIMARY CARE/MEDICINE ICD-10-CM R73.9 Hyperglycemia, unspecified BOY DELONG Encounter Template Text not used by [place] Assessments - Encounter Diagnoses This section includes [...] care activities for the patient from all [place] [facility]. This section includes future appointments and future orders which are active, pending or scheduled. Future Appointments This section includes appointments that were scheduled to occur 6 months from the date of the Encounter, up to a maximum of 20 appointments. The data comes from all [facility]. Appointment Date/Time Appointment Type Appointme nt Facility Name Jun 17, 2023 08:00 AM AMBULATORY - PSYCHIATRY [facility] Jun 21, 2023 08:00 AM AMBULATORY - PSYCHIATRY [facility] Jun 24, 2023 11:00 AM AMBULATORY - NONE [facility] [place] [facility] Jun 24, 2023 11:30 AM AMBULATORY - REHAB MEDICIN E [facility] [place] [facility] July 22, 2023 01:00 PM AMBULATORY - PSYCHIATRY [facility] August 03, 2023 08:00 AM AMBULATORY - REHAB MEDICIN [facility] August 05, 2023 09:00 AM AMBULATORY - PS[facility]CHIATRY [facility] [place] [facility] August 05, 2023 03:00 PM AMBULATORY - PS[facility]CHIATRY [facility] [place] [facility] Aug 11, 2023 10:40 AM AMBULATORY - MEDICINE [place] [facility] [place] [facility] Aug 19, 2023 10:00 AM AMBULATORY - REHAB MEDICIN [facility] Sep 09, 2023 09:30 AM AMBULATORY - PS[facility]CHIATRY [facility] [place] [facility] Oct 14, 2023 09:30 AM AMBULATORY - PS[facility]CHIATRY [facility] [place] [facility] Oct 28, 2023 10:00 AM AMBULATORY - [facility]ATRY [facility] [place] [facility] Nov 11, 2023 11:00 AM AMBULATORY - PS[facility]CHIATRY [facility] [place] [facility] Nov 14, 2023 03:00 PM AMBULATORY - MEDICINE [place] [facility] [place] [facility] Nov 17, 2023 08:00 AM AMBULATORY - MEDICINE [place] [facility] [place] [facility] Lab Results: +/- 30 days of the encounter This section includes the Chemistry and Hematology Lab Results on record with [place] for the patient. Radiology Reports and Pathology Reports are provided separately, in subsequent sections. Lab Results This section contains the Chemistry/Hematology Results that were resulted 30 days before or 30 daysafter the date of the Encounter. Date/Time Source Result Type Result - Unit Interpretation Reference Range Comment Jun 09, 2023 08:32 AM REFORM VITAMIN D (25-OH) Specimen Type: SERUM No comment entered. Ordering Provider: BOY DELONG Report Released Date/Time: Dec 14, 2022 10:56 AM Reporting Lab: [address] [address] Performing Lab: [address] [phone] VITAMIN D (25-OH) 21 ng/mL 20-50 Jun 09, 2023 08:32 AM REFORM URINALYSIS Specimen Type: URINE Comment: If Glucose = >500 and Ketones are positive, please alert the Physician. Ordering Provider: BOY DELONG Report Released Date/Time: Dec 14, 2022 10:56 AM Reporting Lab: [address] [address] Performing Lab: [address] [address] UA COLOR Light-Yellow Yellow UA APPEARANCE Clear Clear UA GLUCOSE NEGATIVE mg/dL Negative UA KETONES NEGATIVE mg/dL Negative UA BLOOD NEGATIVE mg/dL Negative UA PROTEIN NEGATIVE mg/dL Negative UA NITRITE NEGATIVE mg/dL Negative UA BILIRUBIN NEGATIVE mg/dL Negative UA SPECIFIC GRAVITY 1.015 L 1.016-1.02 2 UA pH 5.5 5.0-9.0 UA UROBILINOGEN <2.0 mg/dL <2.0 UA LEUKOCYTE NEGATIVE Negative Jun 09, 2023 08:32 AM REFORM VITAMIN B12 Specimen Type: SERUM No comment entered. Ordering Provider: BOY DELONG Report Released Date/Time: Dec 14, 2022 10:56 AM Reporting Lab: [address] [phone] Performing Lab: [address] [address] VITAMIN B12 580 pg/mL 200-900 Jun 09, 2023 08:32 AM REFORM FERRITIN Specimen Type: SERUM No comment entered. Ordering Provider: BOY DELONG Report Released Date/Time: Dec 14, 2022 10:56 AM Reporting [facility] [address] [address] Performing Lab: [facility] [address] [address] FERRITIN 199 ng/mL 20-300 Jun 09, 2023 08:32 AM REFORM RETICULOCYTES Specimen Type: BLOOD No comment entered. Ordering Provider: BOY DELONG Report Released Date/Time: Dec 14, 2022 10:56 AM Reporting Lab: [facility] [address] [address] Performing Lab: [facility] [address] [address] RETIC % 1.1 0.6-2.0 RETIC, ABS 61.8 10*3/uL 30.0-90.0 Ret-He % 31.3 27.9-42.0 Jun 09, 2023 08:32 AM REFORM CBC AND DIFF (AUTO) Specimen Type: BLOOD No comment entered. Ordering Provider: BOY DELONG Report Released Date/Time: Dec 14, 2022 10:56 AM Reporting Lab: [facility] [address] [address] Performing Lab: [facility] [address] [address] WBC 4.38 10*3/uL L 4.50-11.00 RBC 5.42 10*6/uL 4.23-5.66 HGB 15.0 g/dL 12.8-17 HCT 44.9 39.2-50.4 MCV 82.8 fL 82-99 MCHC 33.4 g/dL 30.8-35.1 PLT 265 10*3/uL 140-360 RDW-CV 12.8 12.0-16.0 [place], Abs 0.37 10*3/uL 0.30-1.10 MCH 27.7 pg 26.2-32.6 Neut % 56.0 43.7-75.8 Lymph % 31.7 14.0-42.3 [place] % 8.4 5.1-13.7 Eos % 3.0 0.4-6.8 Baso % 0.7 0.1-2.0 Neut, Abs 2.45 10*3/uL 2.20-7.60 Lymph, Abs 1.39 10*3/uL 1.00-3.20 Eos, Abs 0.13 10*3/uL 0.03-0.44 Baso, Abs 0.03 10*3/uL 0.01-0.13 Immature Gran % 0.2 0.0-0.7 Immature Gran, Abs 0.01 10*3/uL 0.00-0.06 Jun 09, 2023 08:32 AM REFORM PSA Specimen Type: SERUM No comment entered. Ordering Provider: BOY DELONG Report Released Date/Time: Dec 14, 2022 10:56 AM Reporting Lab: [facility] [address] [address] Performing Lab: [address] [address] PSA 2.13 ng/mL 0.00-4.00 Jun 09, 2023 08:32 AM REFORM HEMOGLOBIN A1C PANEL Specimen Type: BLOOD Comment: [...] Dec 14, 2022 10:56 AM Reporting Lab: [facility] [address] [address] Performing Lab: [address] [address] HEMOGLOBIN A1C 5.8 H 4.0-5.6 Jun 09, 2023 08:32 AM REFORM TSH Specimen Type: SERUM No comment entered. Ordering Provider: BOY DELONG Report Released Date/Time: Dec 14, 2022 10:56 AM Reporting Lab: [address] [phone] Performing Lab: [address] [address] TSH 2.27 u[IU]/mL 0.35-5.00 Jun 09, 2023 08:32 AM REFORM BASIC METABOLIC PANEL (fasting) Specime n Type: SERUM No comment entered. Ordering Provider: BOY DELONG Report Released Date/Time: Dec 14, 2022 10:56 AM Reporting Lab: [address] [address] Performing Lab: [address] [address] UREA NITROGEN 15 mg/dL 7-25 GLUCOSE 113 mg/dL H 65-100 SODIUM 141 mmol/L 135-145 POTASSIUM 3.9 mmol/L 3.5-5.0 CHLORIDE 108 mmol/L 100-110 CO2 24 meq/L 20-30 CREATININE, Serum 1.17 mg/dL 0.50-1.40 eGFR(CKD-EPI 2020) 71 mL/min >60 Jun 09, 2023 08:32 AM REFORM LIVER FUNCTION Specimen Type: SERUM No comment entered. Ordering Provider: BOY DELONG Report Released Date/Time: Dec 14, 2022 10:56 AM Reporting Lab: [address] [address] Performing Lab: [address] [address] PROTEIN,TOTAL 6.9 g/dL 6.0-8.3 ALBUMIN 4.0 g/dL 3.5-5.0 ALKALINE PHOSPHATASE 66 U/L 40-150 AST 19 U/L 5-34 ALT 27 U/L BILIRUBIN, TOTAL 0.5 mg/dL 0.2-1.2 Jun 09, 2023 08:32 AM REFORM LIPID PANEL FASTING Specimen Type: SERUM No comment entered. Ordering Provider: BOY DELONG Report Released Date/Time: Dec 14, 2022 10:56 AM Reporting Lab: [address] [address] Performing Lab: [address] [address] CHOLESTEROL 173 mg/dL TRIGLYCERIDE 81 mg/dL 0-150 LDL calculated 118 mg/dL 0-129 CHOL/HDL 4.4 HDL CHOLESTEROL 39 mg/dL L 40-60 Jun 09, 2023 08:32 AM REFORM CALCIUM Specimen Type: SERUM No comment entered. Ordering Provider: OBY DELONG Report Released Date/Time: Dec 14, 2022 10:56 AM Reporting Lab: [address] [address] Performing Lab: [address] [address] CALCIUM 8.8 mg/dL 8.5-10.2 Jun 09, 2023 08:32 AM REFORM URIC ACID Specimen Type: SERUM No comment entered. Ordering Provider: BOY DELONG Report Released Date/Time: Dec 14, 2022 10:56 AM Reporting Lab: [address] [address] Performing Lab: [address] [address] URIC ACID 5.6 mg/dL 3.5-7.2 Vital Signs: All taken on the encounter date This section contains inpatient and outpatient Vital Signs collected on the date of the Encounter. Date/Time Temperature Pulse Blood Pressure Respiratory Rate SP02 Pain Height Weight Body Mass Index Source Jun 10, 2023 11:38 AM [address] [place] Jun 10, 2023 11:37 AM 96.8 73 134/84 239.4 33 [facility] Social History: Smoking Status (Most current) and Tobacco Use (All prior to encounter date) This section includes the most current, and the historical, smoking and tobacco- related health factors from the [place] facility where the Encounter took place. Current Smoking Status This section includes the most current smoking, or tobacco-related health factor, from the [place] facility where the Encounter took place. Date/Time Current Smoking Status Comment Matthew blankenship Jun 10, 2023 11:30 AM [place]-TOBACCO NEVER USED [facility] Tobacco Use History This section includes a history of the smoking, or tobacco-related health factors, that were collected on or before the date of the Encounter. The data comes from the [place] facility where the Encounter took place. Date/Time Smoking Status/Tobacco Use Comment F acility May 14, 2022 11:30 AM [place]-TOBACCO NEVER USED REFORM Mar 27, 2021 11:00 AM [facility]-TOBACCO NEVER USED [facility] Radiology Reports: +/- 30 days of the [...] the Encounter. The data comes from all [place] treatment facilities. Date/Time Radiology Report Provider Source Jun 24, 2023 10:59 AM ABDOMINAL ULTRASOUND: LUPILLO HONG [id number] -1960 M Exm Date: JUN 24, 2023@10:59 Req Phys: BOY DELONG Loc: CWM/SO/PACT 3 WH (Req'g Loc) Img Loc: ULTRASOUND Service: Unknown (Case [id number] COMPLETE) [employer] [facility] ([place] Detailed) CPT:20183 Reason for Study: umbilical hernia Clinical History: need views before seeing karen trujillo Report Status: Verified Date Reported: JUN 25, 2023 Date Verified: JUN 25, 2023 Typewriter Assembler E-Sig: Report: [employer] [facility] [[place]] Clinical History: Umbilical hernia. Comparison: None [...] containing hernia. READING PHYSICIAN: Mikhail Andrews MD -[id number] 06/24/2023 23:15 PDT [facility] National Telerad[facility] Program [phone] (For Medical Practitioner Use Only) Attention Patients / Veterans: If you have questions or concerns about these test results, please contact your ordering provider or primary care team. Primary Diagnostic Code: NO ALERT REQUIRED Primary Interpreting Staff: RADIOLOGY,OUTSIDE SERVICE, Staff Physician / RADIOLOGY,OUTSIDE SERVICE [place] [facility] [place] [facility] Encounter Notes: All associated encounter notes This section contains the clinical notes associated to the Encounter. Date/Time Encounter Note(s) Provider Source Jun 10, 2023 11:33 AM PHYSICIAN EVERARDO Cantu NOTE: LOCAL TITLE: LEANDER CARRASQUILLO STANDARD TITLE: PHYSICIAN RUNNING RIGGER NOTE DATE OF NOTE: JUN 10, 2023@11:33 [...] in JUN 28 DM II - CON: Cuffer - may need meds later - eye [...] Not worried about housing near future [facility] reports the following: Within the past 12 [...] tobacco. /ivone/ BOY DELONG PA-C STAFF PHYSICIAN RUNNING RIGGER Signed: 06/10/2023 13:02 BOY DELONG
--- OUTSIDE RECORDS SUMMARY | 2024-03-02 08:57 | XMS_ITS ---
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 Date/Time Encounter Type Encounter Description Reason Provider Source Jan 13, 2024 01:00 PM OFFICE O/P EST LOW 20 MIN PM&RS PHYSICIAN ICD-10-CM M17.0 Bilateral primary osteoarthritis of knee NNAMDI MCFADDEN E Encounter Template Text not used by [place] Assessments - Encounter Diagnoses This section includes the primary and secondary diagnoses documented for the Encounter. Date/Time Primary/Secondary Diagnosis Diagnosis Name Provider Source Jan 13, 2024 01:46 PM PRIMARY Bilateral primary osteoarthritis of knee NNAMDI MCFADDEN [place] [facility] [facility] Jan 13, 2024 01:46 PM SECONDARY Gout, unspecified NNAMDI MCFADDEN [facility] Plan of Treatment: Future Appointments (+ 6 months) and Future Tests (+/- 45 days) The Plan of Treatment section includes future care activities for the patient from all [place] [facility] This section includes future appointments and future orders which are active, pending or scheduled. Future Appointments This section includes appointments that were scheduled to occur 6 months from the date of the Encounter, up to a maximum of 20 appointments. The data comes from all [facility] facilities. Appointment Date/Time Appointment Type Appointme nt Facility Name Feb 03, 2024 03:30 PM [facility] Mar 01, 2024 11:00 AM AM[facility]ULATORY - MEDICINE [facility] Apr 06, 2024 10:00 AM AMBULATORY - PSYCHIATRY [facility] May 14, 2024 10:30 AM AMBULATORY [...] of theEncounter. The data comes from all [facility]. Test Date/Time Test Type Test Details Facility Name Jan 13, 2024 01:37 PM Consult Order COMMUNITY CARE-ORTHO SURGICAL Cons Rn [facility] Feb 03, 2024 03:52 PM Consult Order PHYSICAL T HERAPY/SPOPC OUTPT Cons Rn Appeals[facility] Choice [facility] Lab Results: +/- 30 days of the encounter This section includes the Chemistry and Hematology Lab Results on record with [place] for the patient. Radiology Reports and Pathology Reports are provided separately, in subsequent sections. Lab Results This section contains the Chemistry/Hematology Results that were resulted 30 days before or 30 daysafter the date of the Encounter. Date/Time Source Result Type Result - Unit Interpretation Reference Range Comment Jan 06, 2024 10:11 AM [facility] MICROALBUMIN CREATININE RATIO PANEL Spe cimen Type: URINE No comment entered. Ordering Provider: BOY DELONG Report Released Date/Time: Nov 23, 2023 08:33 AM Reporting Lab: [facility] [address] [address] Performing Lab: [facility] [address] [address] MICROALBUMIN/C REATININE RATIO 13.8 mg/g 0-29.9 MICROALBUMIN,Q UANTITATIVE 2.5 mg/dL RR UNAVAIL CREATININE URINE 180.82 mg/dL Jan 06, 2024 10:11 AM [facility] URINALYSIS Specimen Type: URINE Comment: If Glucose = >500 and Ketones are positive, please alert the Physician. Ordering Provider: BOY DELONG Report Released Date/Time: Nov 23, 2023 08:33 AM Reporting Lab: [address] [address] Performing Lab: [address] [address] UA COLOR Light-Yellow Yellow UA APPEARANCE Clear Clear UA GLUCOSE Normal mg/dL Negative UA KETONES NEGATIVE mg/dL Negative UA BLOOD NEGATIVE mg/dL Negative UA PROTEIN 10 mg/dL Negative UA NITRITE NEGATIVE mg/dL Negative UA BILIRUBIN NEGATIVE mg/dL Negative UA SPECIFIC GRAVITY 1.024 H 1.016-1.022 UA pH 5.5 5.0-9.0 UA UROBILINOGEN Normal mg/dL <2.0 UA LEUKOCYTE NEGATIVE Negative Jan 06, 2024 09:55 AM [facility] URIC ACID Specimen Type: SERUM No comment entered. Ordering Provider: BOY DELONG Report Released Date/Time: Nov 23, 2023 08:33 AM Reporting Lab: [address] [address] Performing Lab: [address] [address] URIC ACID 5.7 mg/dL 3.5-7.2 Jan 06, 2024 09:55 AM [facility] CALCIUM Specimen Type: SERUM No comment entered. Ordering Provider: BOY DELONG Report Released Date/Time: Nov 23, 2023 08:33 AM Reporting Lab: [address] [address] Performing Lab: [address] [address] CALCIUM 9.0 mg/dL 8.5-10.2 Jan 06, 2024 09:55 AM [facility] BASIC METABOLIC PANEL (fasting) Specime n Type: SERUM No comment entered. Ordering Provider: BOY DELONG Report Released Date/Time: Nov 23, 2023 08:33 AM Reporting Lab: [facility] [address] [address] Performing Lab: [address] [address] UREA NITROGEN 18 mg/dL 7-25 GLUCOSE 108 mg/dL H 65-100 SODIUM 140 mmol/L 135-145 POTASSIUM 3.9 mmol/L 3.5-5.0 CHLORIDE 111 mmol/L H 100-110 CO2 21 meq/L 20-30 CREATININE, Serum 1.13 mg/dL 0.50-1.40 eGFR(CKD-EPI 2020) 74 mL/min >60 Jan 06, 2024 09:55 AM [facility] LIVER FUNCTION Specimen Type: SERUM No comment entered. Ordering Provider: BOY DELONG Report Released Date/Time: Nov 23, 2023 08:33 AM Reporting Lab: [address] [address] Performing Lab: [address] [address] PROTEIN,TOTAL 6.8 g/dL 6.0-8.3 ALBUMIN 3.9 g/dL 3.5-5.0 ALKALINE PHOSPHATASE 66 U/L 40-150 AST 21 U/L 5-34 ALT 34 U/L BILIRUBIN, TOTAL 0.4 mg/dL 0.2-1.2 Jan 06, 2024 09:55 AM [facility] LIPID PANEL FASTING Specimen Type: SERUM No comment entered. Ordering Provider: BOY DELONG Report Released Date/Time: Nov 23, 2023 08:33 AM Reporting Lab: [address] [address] Performing Lab: [address] [address] CHOLESTEROL 168 mg/dL TRIGLYCERIDE 70 mg/dL 0-150 LDL calculated 115 mg/dL 0-129 CHOL/HDL 4.3 HDL CHOLESTEROL 39 mg/dL L 40-60 Jan 06, 2024 09:55 AM [facility] VITAMIN D (25-OH) Specimen Type: SERUM No comment entered. Ordering Provider: BOY DELONG Report Released Date/Time: Nov 23, 2023 08:33 AM Reporting Lab: [place] [facility] [address] [address] Performing [facility]: [facility] [place] [facility] [address] [address] VITAMIN D (25-OH) 23 ng/mL 20-50 Jan 06, 2024 09:55 AM [facility] FERRITIN Specimen Type: SERUM No comment entered. Ordering Provider: BOY DELONG Report Released Date/Time: Nov 23, 2023 08:33 AM Reporting Lab: [place] [facility] [address] [address] Performing [facility]: [facility] [place] [facility] [address] [address] FERRITIN 214 ng/mL 20-300 Jan 06, 2024 09:55 AM [facility] VITAMIN B12 Specimen Type: SERUM No comment entered. Ordering Provider: BOY DELONG Report Released Date/Time: Nov 23, 2023 08:33 AM Reporting Lab: [place] [facility] [address] [address] Performing [facility]: [facility] [address] [address] VITAMIN B12 636 pg/mL 200-900 Jan 06, 2024 09:55 AM [facility] PSA Specimen Type: SERUM No comment entered. Ordering Provider: BOY DELONG Report Released Date/Time: Nov 23, 2023 08:33 AM Reporting Lab: [place] [facility] [place] [facility] [address] [address] Performing [facility]: [facility] [place] [facility] [address] [address] PSA 1.09 ng/mL 0.00-4.00 Jan 06, 2024 09:55 AM [facility] HEMOGLOBIN A1C PANEL Specimen Type: BLOOD Comment: [...] Nov 23, 2023 08:33 AM Reporting Lab: [address] [address] Performing Lab: [address] [address] HEMOGLOBIN A1C 5.5 4.0-5.6 Jan 06, 2024 09:55 AM [facility] CBC AND DIFF (AUTO) Specimen Type: BLOOD No comment entered. Ordering Provider: BOY DELONG Report Released Date/Time: Nov 23, 2023 08:33 AM Reporting Lab: [address] [address] Performing Lab: [address] [address] WBC 3.76 10*3/uL L 4.50-11.00 RBC 5.35 [...] 10*3/uL 0.00-0.00 Jan 06, 2024 09:55 AM [facility] TSH Specimen Type: SERUM No comment entered. Ordering Provider: BOY DELONG Report Released Date/Time: Nov 23, 2023 08:33 AM Reporting Lab: [facility] [address] [address] Performing Lab: [address] [address] TSH 3.01 u[IU]/mL 0.35-5.00 Vital Signs: All taken on the encounter date This section contains inpatient and outpatient Vital Signs collected on the date of the Encounter. Date/Time Temperature Pulse Blood Pressure Respiratory Rate SP02 Pain Height Weight Body Mass Index Source Jan 13, 2024 01:11 PM 124/70 3 [facility] Radiology Reports: +/- 30 days of [...] AM KNEE 3 VIEWS (LEFT): LUPILLO HONG [id number] -1960 M Ex Date: JAN 10, 2024@11:27 Req Phys: BOY DELONG Pat Loc: CWM/SO/PACT 3 WH (Req'g Loc) Img Loc: [facility] 1 Service: [place] [address] (Case [id number] COMPLETE) KNEE 3 VIEWS (LEFT) (RAD Detailed) CPT:00053 Reason for Study: left knee pain Clinical History: any OA or joint erosions? did have gout L knee Report Status: Verified Date Reported: JAN 10, 2024 Date Verified: JAN 10, 2024 Pallet Stone Positioner E-Sig: Report: KNEE 3 VIEWS (LEFT) COMPARISON: [...] the right knee demonstrates severe medial and [id number] lateral tibiofemoral compartment joint degeneration, similar to [...] to prior. READING PHYSICIAN: Karon Blount M.D. -[id number] 01/10/2024 11:58 EST [facility] National Teleradiology Program [phone] (For Medical Practitioner Use Only) Attention Patients / Veterans: If you have questions or concerns about these test results, please contact your ordering provider or primary care team. Primary Diagnostic Code: NO ALERT REQUIRED Primary Interpreting Staff: RADIOLOGY,OUTSIDE SERVICE, Staff Physician / RADIOLOGY,OUTSIDE SERVICE [facility] Jan 10, 2024 11:[address] MAXILLOFACIAL W/O CONT: LUPILLO HONG [id number] -1960 M Exm Date: JAN 10, 2024@11:15 Req Phys: BOY DELONG Loc: CWM/SO/PACT 3 WH (Req'g Loc) Img Loc: [facility]/CT Service: Unknown [place] [address] (Case [id number] COMPLETE) CT MAXILLOFACIAL W/O CONT (CT Detailed) CPT:00801 Reason for Study: post nasal drip Clinical History: always cleasring thraot Report Status: Verified Date Reported: JAN 10, 2024 Date Verified: JAN 10, 2024 Pallet Stone Positioner E-Sig: Report: MAXILLOFACIAL CT WITHOUT IV CONTRAST/CT OF THE PARANASAL SINUSES WITHOUT IV CONTRAST: INDICATION: Post nasal drip. Patient reportedly always clearing throat. TECHNIQUE: Volumetric CT acquisition through the maxillofacial structures/paranasal sinuses, with axial, coronal and sagittal reformats, was performed at the local [place] facility. 159 images were received by the [place] National Teleradiology Program (NTP) for interpretation. RADIATION [...] commentary as above. READING PHYSICIAN: Boy Sun -[phone] 01/10/2024 16:06 [facility] National Teleradiology Program [phone] (For Medical Practitioner Use Only) Attention Patients / Veterans: If you have questions or concerns about these test results, please contact your ordering provider or primary care team. Primary Diagnostic Code: NO ALERT REQUIRED Primary Interpreting Staff: RADIOLOGY,OUTSIDE SERVICE, Staff Physician / RADIOLOGY,OUTSIDE SERVICE [facility] Jan 10, 2024 11:[address] THORAX W/O CONT: LUPILLO HONG [id number] -1960 M Exm Date: JAN 10, 2024@11:15 Req Phys: BOY DELONG Loc: CWM/SO/PACT 3 WH (Req'g Loc) Img Loc: [facility]/CT Service: [place] [address] (Case [id number] COMPLETE) CT THORAX W/O CONT (CT Detailed) CPT:67492 Reason for Study: chest tightness Clinical History: post nasal drip coughing echo and ekg of heart neg for cardiac pathology back in may 2023 any signs interstitial lung disease? Report Status: Verified Date Reported: JAN 10, 2024 Date Verified: JAN 10, 2024 Pallet Stone Positioner E-Sig: Report: CT OF THE CHEST WITHOUT IV CONTRAST INDICATION: Chest tightness, post nasal drip, coughing. Assess for signs of interstitial lung disease. TECHNIQUE: Volumetric CT acquisition through the chest, with axial, coronal and sagittal reformats, was performed at the local [place] facility. 1194 images were received by the [place] National Teleradiology Program (NTP) for interpretation. RADIATION [...] as detailed above. READING PHYSICIAN: Boy Sun -[phone] 01/10/2024 17:01 [facility] National Teleradiology Program [phone] (For Medical Practitioner Use Only) Attention Patients / Veterans: If you have questions or concerns about these test results, please contact your ordering provider or primary care team. Primary Diagnostic Code: SIGNIFICANT ABNORMALITY, ATTN NEEDED Primary Interpreting Staff: RADIOLOGY,OUTSIDE SERVICE, Staff Physician / RADIOLOGY,OUTSIDE SERVICE [facility] Encounter Notes: All associated encounter notes This section contains the clinical notes associated to the Encounter. Date/Time Encounter Note(s) Provider Source Jan 13, 2024 01:38 PM PHYSICAL MEDICINE REHAB PHYSICIAN NOTE: LOCAL TITLE: PM&R FOLLOW-UP STANDARD TITLE: PHYSICAL MEDICINE REHAB PHYSICIAN NOTE DATE OF NOTE: JAN 13, 2024@13:38 ENTRY DATE: JAN 13, 2024@13:39:04 AUTHOR: JAM MCFADDEN EXP COSIGNER: URGENCY: STATUS: COMPLETED PM&R FOLLOW-UP Has ADDENDA JAN 13, 2024 GELYLUPILLO SMILEY is a 63 y/o MALE who presents today for follow-up of bilateral knee pain left greater than right. [place] has significant gouty arthritis. He has taken [...] Dyspnea Soc Hx: MARITAL STATUS - NEVER indeni FROM Oct TO Oct ALL: Patient has [...] discuss option of community care versus [facility]. would like to stay within the community. [...] medical record, educating, counseling and coordinating care. /HIEN Vickers Signed: 01/13/2024 13:46 01/13/2024 ADDENDUM STATUS: COMPLETED total time spent 25 minutes /HIEN Vickers Signed: 01/13/2024 13:48 JAM MCFADDEN [place] [facility]
--- OUTSIDE RECORDS SUMMARY | 2024-03-02 08:57 | XMS_ITS | Encounter Summary ---
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 The data comes from all [place] treatment facilities. Appointment Date/Time Appointment Type Appointme nt Facility Name Nov 14, 2023 03:00 PM AMBULATORY [facility] MEDICINE [place] [facility] [place] [place] [facility] Nov 17, 2023 08:00 AM AMBULATORY - MEDICINE [place] [facility] [place] [place] [facility] Jan 06, 2024 10:00 AM [facility]UL[facility]ORY - MEDICINE [facility] Jan 10, 2024 11:15 [...] AMBULATORY - MEDICINE [facility] Mar 01, 2024 11:00 AM AMBULATORY - MEDICINE [place] [facility] Apr 06, 2024 10:00 AM AMBULATORY - PSYCHIATRY [place] [facility] [facility] Lab Results: +/- 30 days of [...] Range Comment Nov 17, 2023 08:30 AM [facility] CULTURE,BODY FLUID PANEL(C.D.H) Specimen Type: SYNOVIAL FLUID Comment: Refer to CPRS: [place] Imag. Display for Lab Results Ordering Provider: REESE MCFADDEN Report Released Date/Time: Nov 17, 2023 09:15 AM Reporting Lab: [place] [facility] [facility] [address] [address] Performing Lab: [place] [facility] [facility] [address] [facility] [address] GRAM STAIN(cdh) comment ANAEROBIC CULTURE(cdh) comment CULTURE,BODY FLUID(cdh) comment Nov 17, 2023 08:30 AM [facility] [place] [facility] GLUCOSE, SYNOVIAL (q) Specimen Type: SYNOVIAL FLUID Comment: Synovial fluid glucose values are equivalent to plasma values if obtained from a fasting patient. The difference between the plasma glucose and synovial fluid glucose value should be <10 mg/dL. Test Performed by [employer] [place], [employer] [facility], [address] [place] [address] Rajesh Doss M.D., Ph.D., Director of Laboratories , CLIA [id number] TEST PERFORMED AT: , Ordering Provider: REESE MCFADDEN Report Released Date/Time: Nov 17, 2023 09:15 AM Reporting Lab: [facility] [address] [address] Performing Lab: [facility] [address] [address] GLUCOSE, SYNOVIAL (q) 145 mg/dL Nov 17, 2023 08:30 AM [facility] SYNOVIAL FLUID CRYSTALS PANEL Specimen Type: SYNOVIAL FLUID No comment entered. Ordering Provider: REESE MCFADDEN Report Released Date/Time: Nov 17, 2023 09:24 AM Reporting Lab: [facility] [address] [facility] [address] Performing Lab: [facility] [address] [facility] [address] CRYSTALS,BF Positive Negative MSU CRYSTALS,BF Present Negative MSU CRYSTAL EXTRA,BF Present Negative MSU CRYSTAL INTRA,BF Present Negative Nov 17, 2023 08:30 AM [facility] CELL COUNT (SYNOVIAL FLUID) Specimen Type: SYNOVIAL FLUID Comment: *CRYSTALS Not Performed: Nov 17, 2023@09:25 by [id number] *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
--- OUTSIDE RECORDS SUMMARY | 2024-03-02 08:58 | XMS_ITS | Encounter Summary ---
Author Name [facility] [place] Organization [facility] [place] Address [address] [place] [address] Care Team Providers Care Scientific Programmer Analyst Name Role Phone BOY DELONG Primary Care [...] RX PRESCRIPT ION HEALT H NEW ENGL [facility] Mar 07, 2020 [facility] [id number] MARGARETH HONG RRYL PATIENT Selected Encounter This section includes the information on record at [place] for the Encounter. Date/Time Encounter Type Encounter Description Reason Pro vider Source Jul 05, 2023 06:53 AM Outpatient Encounter PRIMARY CARE/MEDICINE IHE Encounter [...] 08:00 AM AMBULATORY - REHAB MEDICIN E [place] August 05, 2023 09:00 AM [facility] [place] [facility] August 05, 2023 03:00 PM AMBULATORY [facility] [place] [facility] Aug 11, 2023 10:40 AM [facility] [place] [facility] Aug 19, 2023 10:00 AM AMBULATORY - REHAB MEDICIN E [place] Sep 09, 2023 09:30 AM AMBULATORY [facility] [place] [facility] Oct 14, 2023 09:30 AM AMBUL[facility]ORY [facility] [place] [facility] Oct 28, 2023 10:00 AM [facility] [place] [facility] Nov 11, 2023 11:00 AM [facility] Nov 14, 2023 03:00 PM [facility] Nov 17, 2023 08:00 AM [facility] [place] [facility] Lab Results: +/- 30 days [...] Range Comment Jun 09, 2023 08:32 AM [place] VITAMIN D (25-OH) Specimen Type: SERUM No comment entered. Ordering Provider: BOY DELONG Report Released Date/Time: Dec 14, 2022 10:56 AM Reporting Lab: [facility] [address] [address] Performing Lab: [facility] [address] [address] VITAMIN D (25-OH) 21 ng/mL 20-50 Jun 09, 2023 08:32 AM [place] URINALYSIS Specimen Type: URINE Comment: If Glucose = >500 and Ketones are positive, please alert the Physician. Ordering Provider: BOY DELONG Report Released Date/Time: Dec 14, 2022 10:56 AM Reporting Lab: [address] [address] Performing Lab: [address] [address] UA COLOR Light-Yellow Yellow UA APPEARANCE Clear Clear UA GLUCOSE NEGATIVE mg/dL Negative UA KETONES NEGATIVE mg/dL Negative UA BLOOD NEGATIVE mg/dL Negative UA PROTEIN NEGATIVE mg/dL Negative UA NITRITE NEGATIVE mg/dL Negative UA BILIRUBIN NEGATIVE mg/dL Negative UA SPECIFIC GRAVITY 1.015 L 1.016-1.02 2 UA pH 5.5 5.0-9.0 UA UROBILINOGEN <2.0 mg/dL <2.0 UA LEUKOCYTE NEGATIVE Negative Jun 09, 2023 08:32 AM [place] VITAMIN B12 Specimen Type: SERUM No comment entered. Ordering Provider: BOY DELONG Report Released Date/Time: Dec 14, 2022 10:56 AM Reporting Lab: [address] [address] Performing Lab: [address] [address] VITAMIN B12 580 pg/mL 200-900 Jun 09, 2023 08:32 AM [place] FERRITIN Specimen Type: SERUM No comment entered. Ordering Provider: BOY DELONG Report Released Date/Time: Dec 14, 2022 10:56 AM Reporting Lab: [address] [address] Performing Lab: [address] [address] FERRITIN 199 ng/mL 20-300 Jun 09, 2023 08:32 AM [place] CBC AND DIFF (AUTO) Specimen Type: BLOOD No comment entered. Ordering Provider: BOY DELONG Report Released Date/Time: Dec 14, 2022 10:56 AM Reporting Lab: [address] [address] Performing Lab: [address] [address] WBC 4.38 10*3/uL L 4.50-11.00 RBC 5.42 10*6/uL 4.23-5.66 HGB 15.0 g/dL 12.8-17 HCT 44.9 39.2-50.4 MCV 82.8 fL 82-99 MCHC 33.4 g/dL 30.8-35.1 PLT 265 10*3/uL 140-360 RDW-CV 12.8 12.0-16.0 Kershaw, Abs 0.37 10*3/uL 0.30-1.10 MCH 27.7 pg 26.2-32.6 Neut % 56.0 43.7-75.8 Lymph % 31.7 14.0-42.3 Kershaw % 8.4 5.1-13.7 Eos % 3.0 0.4-6.8 Baso % 0.7 0.1-2.0 Neut, Abs 2.45 10*3/uL 2.20-7.60 Lymph, Abs 1.39 10*3/uL 1.00-3.20 Eos, Abs 0.13 10*3/uL 0.03-0.44 Baso, Abs 0.03 10*3/uL 0.01-0.13 Immature Gran % 0.2 0.0-0.7 Immature Gran, Abs 0.01 10*3/uL 0.00-0.06 Jun 09, 2023 08:32 AM [place] HEMOGLOBIN A1C PANEL Specimen Type: BLOOD Comment: [...] Dec 14, 2022 10:56 AM Reporting Lab: [address] [address] Performing Lab: [address] [address] HEMOGLOBIN A1C 5.8 H 4.0-5.6 Jun 09, 2023 08:32 AM [place] RETICULOCYTES Specimen Type: BLOOD No comment entered. Ordering Provider: BOY DELONG Report Released Date/Time: Dec 14, 2022 10:56 AM Reporting Lab: [facility] [address] [address] Performing Lab: [facility] [address] [address] RETIC % 1.1 0.6-2.0 RETIC, ABS 61.8 10*3/uL 30.0-90.0 Ret-He % 31.3 27.9-42.0 Jun 09, 2023 08:32 AM [place] PSA Specimen Type: SERUM No comment entered. Ordering Provider: BOY DELONG Report Released Date/Time: Dec 14, 2022 10:56 AM Reporting Lab: [facility] [address] Performing Lab: [facility] [address] [address] PSA 2.13 ng/mL 0.00-4.00 Jun 09, 2023 08:32 AM [place] TSH Specimen Type: SERUM No comment entered. Ordering Provider: BOY DELONG Report Released Date/Time: Dec 14, 2022 10:56 AM Reporting Lab: [facility] [address] [address] Performing Lab: [facility] [address] TSH 2.27 u[IU]/mL 0.35-5.00 Jun 09, 2023 08:32 AM [place] LIVER FUNCTION Specimen Type: SERUM No comment entered. Ordering Provider: BOY DELONG Report Released Date/Time: Dec 14, 2022 10:56 AM Reporting Lab: [facility] [address] Performing Lab: [facility] [address] PROTEIN,TOTAL 6.9 g/dL 6.0-8.3 ALBUMIN 4.0 g/dL 3.5-5.0 ALKALINE PHOSPHATASE 66 U/L 40-150 AST 19 U/L 5-34 ALT 27 U/L BILIRUBIN, TOTAL 0.5 mg/dL 0.2-1.2 Jun 09, 2023 08:32 AM [place] BASIC METABOLIC PANEL (fasting) Specime n Type: SERUM No comment entered. Ordering Provider: BOY DELONG Report Released Date/Time: Dec 14, 2022 10:56 AM Reporting Lab: [facility] [address] [address] Performing Lab: [address] [address] UREA NITROGEN 15 mg/dL 7-25 GLUCOSE 113 mg/dL H 65-100 SODIUM 141 mmol/L 135-145 POTASSIUM 3.9 mmol/L 3.5-5.0 CHLORIDE 108 mmol/L 100-110 CO2 24 meq/L 20-30 CREATININE, Serum 1.17 mg/dL 0.50-1.40 eGFR(CKD-EPI 2020) 71 mL/min >60 Jun 09, 2023 08:32 AM [place] LIPID PANEL FASTING Specimen Type: SERUM No comment entered. Ordering Provider: BOY DELONG Report Released Date/Time: Dec 14, 2022 10:56 AM Reporting Lab: [facility] [address] [address] Performing Lab: [address] [address] CHOLESTEROL 173 mg/dL TRIGLYCERIDE 81 mg/dL 0-150 LDL calculated 118 mg/dL 0-129 CHOL/HDL 4.4 HDL CHOLESTEROL 39 mg/dL L 40-60 Jun 09, 2023 08:32 AM [place] CALCIUM Specimen Type: SERUM No comment entered. Ordering Provider: BOY DELONG Report Released Date/Time: Dec 14, 2022 10:56 AM Reporting Lab: [facility] [address] [address] Performing Lab: [address] [address] CALCIUM 8.8 mg/dL 8.5-10.2 Jun 09, 2023 08:32 AM [place] URIC ACID Specimen Type: SERUM No comment entered. Ordering Provider: BOY DELONG Report Released Date/Time: Dec 14, 2022 10:56 AM Reporting Lab: [facility] [address] [address] Performing Lab: [place] [facility] [address] [address] URIC ACID 5.6 mg/dL 3.5-7.2 Radiology Reports: [...] the Encounter. The data comes from all [place] treatment facilities. Date/Time Radiology Report Provider Source Jun 24, 2023 10:59 AM ABDOMINAL ULTRASOUND: GELYLUPILLO [id number] -[id number] M Exm Date: JUN 24, 2023@10:59 Req Phys: BOY DELONG Loc: CWM/SO/PACT 3 WH (Req'g Loc) Img Loc: ULTRASOUND Service: Unknown (Case [id number] COMPLETE) [facility] ([place] Detailed) CPT:92370 Reason for Study: umbilical hernia Clinical History: need views before seeing karen trujillo Report Status: Verified Date Reported: JUN 25, 2023 Date Verified: JUN 25, 2023 Seismic Survey Assistant E-Sig: Report: [facility] [PRINTSET] Clinical History: Umbilical hernia. Comparison: None [...] containing hernia. READING PHYSICIAN: Mikhail Andrews MD -[id number] 06/24/2023 23:15 PDT [facility] National Teleradiology Program [phone] (For Medical Practitioner Use Only) Attention Patients / Veterans: If you have questions or concerns about these test results, please contact your ordering provider or primary care team. Primary Diagnostic Code: NO ALERT REQUIRED Primary Interpreting Staff: RADIOLOGY,OUTSIDE SERVICE, Staff Physician / RADIOLOGY,OUTSIDE SERVICE [facility] Encounter Notes: All associated encounter notes This section contains the clinical notes associated to the Encounter. Date/Time Encounter Note(s) Provider Source Jul 05, 2023 06:53 AM PRIMARY CARE DovetailUR E MESSAGING: LOCAL TITLE: PRIMARY CARE SECURE MESSAGING STANDARD TITLE: PRIMARY CARE SECURE MESSAGING DATE OF NOTE: JUL 05, 2023@06:53 ENTRY DATE: JUL 05, 2023@07:53:02 AUTHOR: ANITA MANUEL EXP COSIGNER: URGENCY: STATUS: COMPLETED PRIMARY CARE SECURE MESSAGING Has ADDENDA ------Original Message -------- Sent: 07/04/2023 03:53 PM ET From: LUPILLO HONG To: Chelsea DELONG_PRIMARY CARE_SPOPC Subject: General:knee braces when will i receive the 2 knee braces i was prescribed by at the [facility] approx 2 weeks ago ? do i need to schedule a fitting first ? i have not been contacted about them. /ivone/ JT MANUEL Advanced Quality Control Inspector Heading Signed: 07/05/2023 07:53 Receipt Acknowledged By: 07/05/2023 08:53 /ivone/ Imelda Lutz RN Registered Nurse (RN) 07/05/2023 ADDENDUM STATUS: COMPLETED [facility] message sent to . Good Morning [place], The knee braces will be given to you by Physical Therapy at your appointment on 07/22/23 @ 10:30. If you think you need them sooner, you can call Physical Therapy to move your appointment up. [phone] ext [phone]. Thank you for your services. /ivone/ Imelda Lutz RN Registered Nurse (RN) Signed: 07/05/2023 08:53 ANITA MANUEL [facility]
--- OUTSIDE RECORDS SUMMARY | 2024-03-02 08:58 | XMS_ITS | Encounter Summary ---
Author Name [facility] [place] Organization [facility] [place] Address [address] [place] [address] Care Team Providers Care Supervisor Small Appliance Assembly Name Role Phone BOY DELONG Primary Care [...] ENGL [facility] Mar 07, 2020 [facility] [id number] MARGARETH HONG RRYL PATIENT Selected Encounter This section includes the information on record at [place] for the Encounter. Date/Time Encounter Type Encounter Description Reason Provider Source August 03, 2023 08:00 AM SELF CARE MNGMENT TRAINING PHYSICAL THERAPY ICD-10-CM M17.0 Bilateral primary osteoarthritis of knee LUISANA CHINO IHRosibel Encounter Template Text not used by [place] [...] - PSYCHIATRY [facility] [place] [facility] August 05, 2023 03:00 PM AMBULATORY - PS[facility]IATRY [facility] [place] [facility] Aug 11, 2023 10:40 AM AMBULATORY - MEDICINE [facility] [place] [facility] Aug 19, 2023 10:00 AM AMBULATORY - REHAB [facility] Sep 09, 2023 09:30 AM AMBULATORY - PS[facility]IATRY [facility] [place] [facility] Oct 14, 2023 09:30 AM AMBULATORY - PS[facility]IATRY [facility] [place] [facility] Oct 28, 2023 10:00 AM AMBULATORY - PS[facility]IATRY [facility] [place] [facility] Nov 11, 2023 11:00 AM AMBULATORY - PS[facility]IATRY [facility] [place] [facility] Nov 14, 2023 03:00 PM AMBULATORY - MEDICINE [place] [facility] [place] [facility] Nov 17, 2023 08:00 AM AMBULATORY - MEDICINE [place] [facility] [place] [facility] Jan 06, 2024 10:00 AM AMBULATORY - MEDICINE [facility] Jan 10, 2024 11:15 AM AMBULATORY - NONE [facility] [place] [facility] Jan 10, 2024 11:30 AM AMBULATORY - NONE [facility] [place] [facility] Jan 13, 2024 10:00 AM AMBULATORY - PS[facility]CHIATRY [facility] [place] [facility] Jan 13, 2024 01:00 PM AMBULATORY - MEDICINE [place] [facility] [place] [facility] Feb 03, 2024 03:30 PM AMBULATORY - MEDICINE [facility] Social History: Smoking Status (Most current) and Tobacco Use (All prior to encounter date) This section includes the most current, and the historical, smoking and tobacco- related health factors from the [place] facility where the Encounter took place. Current Smoking Status This section includes the most current smoking, or tobacco-related health factor, from the [place] facility where the Encounter took place. Date/Time Current Smoking Status Comment Facil ity Jun 10, 2023 11:30 AM VA-TOBACCO NEVER USED [place] Tobacco Use History This section includes a history of the smoking, or tobacco-related health factors, that were collected on or before the date of the Encounter. The data comes from the [place] facility where the Encounter took place. 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
--- OUTSIDE RECORDS SUMMARY | 2024-03-02 08:58 | XMS_ITS ---
Author Name [facility] [place] [facility] [place] Address [address] [place] [address] Care Team Providers Care Boarding Specialist Name Role Phone BOY DELONG Primary [...] RX PRESCRIPT ION HEALT H NEW ENGL [facility] Mar 07, 2020 [facility] [id number] MARGARETH HONG RRYL PATIENT Selected Encounter This section includes the information on record at [place] for the Encounter. Date/Time Encounter Type Encounter Description Reason Pro vider Source Aug 08, 2023 08:09 PM Outpatient Encounter ADMIN PAT ACTIVTIES (MASNONCT) IHE Encounter Template Text not used by [place] Plan of Treatment: Future Appointments (+ 6 [...] data comes from all [place] treatment facilities. Appointment Date/Time Appointment Type Appointme nt Facility Name Aug 11, 2023 10:40 AM AMBULATORY [facility] [place] [facility] Aug 19, 2023 10:00 AM [facility] Sep 09, 2023 09:30 AM [facility] [place] [facility] Oct 14, 2023 09:30 AM AMBULATORY [facility] [place] [facility] Oct 28, 2023 10:00 AM AM[facility]ULATORY [facility] [place] [facility] Nov 11, 2023 11:00 AM AMBULATORY [facility] [place] [facility] Nov 14, 2023 03:00 PM AM[facility]ULATORY [facility] [facility] Nov 17, 2023 08:00 AM AMBULATORY [facility] MED[facility] [facility] Jan 06, 2024 10:00 AM AMBULATORY - MEDICINE [place] Jan 10, 2024 11:15 AM AMBULATORY - NONE [facility] [place] [facility] Jan 10, 2024 11:30 AM AMBULATORY - NONE [facility] [place] [facility] Jan 13, 2024 10:00 AM AMBULATORY [facility]RY [facility] [place] [facility] Jan 13, 2024 01:00 PM AMBULATORY - MEDICINE [facility] [facility] Feb 03, 2024 03:30 PM [...] COSIGNER: URGENCY: STATUS: COMPLETED Date: Aug Division: [facility] referred by Pharmacy Call Center for medication renewal: Non-controlled/maintenan ce medication Medications requested: [id number] CELECOXIB 200MG CAP Defer to primary care provider To be mailed . Please review and renew if appropriate. *This note was generated by [facility] Customer Care. If you have any questions or need assistance, do not contact this author. Please refer all questions to your local, on-site pharmacy departments. /ivone/ ISIS RAMOS CPhT Loss Prevention Detective, [place]/Pharmacy Customer Care Signed: 08/08/2023 20:10 Receipt Acknowledged By: 08/09/2023 08:10 /es/ BOY DELONG PA-C STAFF PHYSICIAN BATTERY ASSEMBLER PLASTIC 08/09/2023 09:45 /ivone/ Imelda Lutz RN Registered Nurse (RN) [facility]
--- OUTSIDE RECORDS SUMMARY | 2024-03-02 08:58 | XMS_ITS | Encounter Summary ---
Author Name [facility] [place] Organization [facility] [place] Address [address] [place] [address] Care Team Providers Care Paper Bag Making Machinist Name Role Phone BOY TRUONG Primary Care [...] RX PRESCRIPT ION HEALT H [facility] Mar 07, 2020 [facility] [phone] MARGARETH HONG RRYL PATIENT Selected Encounter This section includes the information on record at [place] for the Encounter. Date/Time Encounter Type Encounter Description Reason Pro vider Source July 18, 2023 02:26 PM Outpatient Encounter PRIMARY CARE/MEDICINE IHE Encounter Template Text not used by [place] Plan of Treatment: Future Appointments (+ 6 months) and Future Tests (+/- 45 days) The Plan of Treatment section includes future care activities for the patient from all [place] treatmentfacilities. This section includes future appointments and future orders which are active, pending or scheduled. Future Appointments This section includes appointments that were scheduled to occur 6 months from the date of the Encounter, up to a maximum of 20 appointments. The data comes from all [place] treatment facilities. Appointment Date/Time Appointment Type Appointme nt Facility Name July 22, 2023 01:00 PM AMBULATORY - PSYCHIATRY [facility] August 03, 2023 08:00 AM AMBULATORY - REHAB [facility]IC[facility] [place] August 05, 2023 09:00 AM [facility] August 05, 2023 03:00 PM [facility] Aug 11, 2023 10:40 AM [facility] Aug 19, 2023 10:00 AM AMBULATORY - REHAB [facility]ICIN [facility] [place] Sep 09, 2023 09:30 AM AM[facility] Oct 14, 2023 09:30 AM [facility] Oct 28, 2023 10:00 AM [facility] Nov 11, 2023 11:00 AM AM[facility] Nov 14, 2023 03:00 PM [facility] Nov 17, 2023 08:00 AM [facility] Jan 06, 2024 10:00 AM AMBULATORY - MEDICINE [place] Jan 10, 2024 11:15 AM AMBULATORY - NONE [facility] Jan 10, 2024 11:30 AM [facility] NONE [facility] Jan 13, 2024 10:00 AM AM[facility] Jan 13, 2024 01:00 PM [facility] Radiology Reports: +/- 30 days of the [...] the Encounter. The data comes from all [place] treatment facilities. Date/Time Radiology Report Provider Source Jun 24, 2023 10:59 AM ABDOMINAL ULTRASOUND: LUPILLO HONG [id number] -1960 M Exm Date: JUN 24, 2023@10:59 Req Phys: BOY TRUONG Loc: CWM/SO/PACT 3 WH (Req'g Loc) Img Loc: ULTRASOUND Service: Unknown (Case 264 COMPLETE) [email or web address] ABDOMEN [place] [facility] ([place] Detailed) CPT:12611 Reason for Study: umbilical hernia Clinical History: need views before seeing karen trujillo Report Status: Verified Date Reported: JUN 25, 2023 Date Verified: JUN 25, 2023 Continuous Improvement Coordinator E-Sig: Report: Network Hardware Resale [PRINTSET] Clinical History: Umbilical hernia. Comparison: None [...] containing hernia. READING PHYSICIAN: Mikhail Andrews MD -[id number] 06/24/2023 23:15 PDT [facility] National Teleradiology Program [phone] (For Medical Practitioner Use Only) Attention Patients / Veterans: If you have questions or concerns about these test results, please contact your ordering provider or primary care team. Primary Diagnostic Code: NO ALERT REQUIRED Primary Interpreting Staff: RADIOLOGY,OUTSIDE SERVICE, Staff Physician / RADIOLOGY,OUTSIDE SERVICE [place] [facility] Encounter Notes: All associated [...] from dr. truong /ivone/ JT MANUEL Advanced Geophysics Teacher Signed: 07/25/2023 08:04 Receipt Acknowledged By: 07/25/2023 08:27 /ivone/ HALEY AVILEZN,RN-BC REGISTERED NURSE (RN) for TEJA LUTZ 07/25/2023 09:02 /ivone/ BOY TRUONG PA-C STAFF PHYSICIAN CRAYON SAWYER ANITA MANUEL [place] [facility] July 19, 2023 03:34 PM ADDENDUM: LOCAL TITLE: Addendum STANDARD TITLE: ADDENDUM DATE OF NOTE: JULY 19, 2023@15:34:30 ENTRY DATE: JULY 19, 2023@15:34:31 AUTHOR: TEJA LUTZ EXP COSIGNER: URGENCY: STATUS: COMPLETED PCP--[facility] would like you to prescribe Sildenafil for erectile dysfunction, he has not been prescribed this before. Is he a candidate? Please advise. Thanks /ivone/ Teja Lutz RN Registered Nurse (RN) Signed: 07/19/2023 15:37 Receipt Acknowledged By: 07/19/2023 15:41 /ivone/ BOY TRUONG PA-C STAFF PHYSICIAN CRAYON SAWYER ========= --- Original Document --- 07/19/23 PRIMARY CARE SECURE MESSAGING: ------Original Message -------- Sent: 07/18/2023 03:35 PM ET From: TEJA LUTZ To: GELY LUPILLO REIS Subject: Medication:confidential Good Afternoon [place], The [place] does carry this medication, however the Rx [...] ET From: LUPILLO HONG To: Chelsea TRUONG_PRIMARY CARE_[facility] Subject: Medication:confidential yes i would like to procede /ivone/ JT MANUEL Advanced Geophysics Teacher Signed: 07/19/2023 15:02 Receipt Acknowledged By: * AWAITING SIGNATURE * TEJA LUTZ [place] N [place] [facility] July 19, 2023 02:02 PM PRIMARY CARE [...] Subject: Medication:confidential Good Afternoon [facility], The [place] does carry this medication, however the Rx [...] From: GELY LUPILLO REIS To: Chelsea TRUONG_PRIMARY CARE_[facility] Subject: Medication:confidential yes i would like to procede /ivone/ JT MANUEL Advanced Geophysics Teacher Signed: 07/19/2023 15:02 Receipt Acknowledged By: 07/22/2023 [...] 15:41 /ivone/ BOY TRUONG PA-C STAFF PHYSICIAN CRAYON SAWYER ANITA MANUEL [place] [facility] July 18, 2023 02:26 PM PRIMARY CARE SECUR E MESSAGING: LOCAL TITLE: PRIMARY CARE SECURE MESSAGING STANDARD TITLE: PRIMARY CARE SECURE MESSAGING DATE OF NOTE: JULY 18, 2023@14:26 ENTRY DATE: JULY 18, 2023@15:26:11 AUTHOR: ANITA MANUEL EXP COSIGNER: URGENCY: STATUS: COMPLETED PRIMARY CARE SECURE MESSAGING Has ADDENDA ------Original Message -------- Sent: 07/18/2023 02:51 PM ET From: LUPILLO HONG To: Chelsea TRUONG_PRIMARY CARE_[facility] Subject: Medication:confidential [facility] equivalent med ? /ivone/ JT MANUEL Advanced Geophysics Teacher Signed: 07/18/2023 15:26 Receipt Acknowledged By: 07/18/2023 15:37 /ivone/ Teja Lutz RN Registered Nurse (RN) 07/18/2023 ADDENDUM STATUS: COMPLETED [facility] message sent to [facility] Dipak Irvin, The [place] does carry this medication, however the Rx [...] Nurse (RN) Signed: 07/18/2023 15:36 ANITA MANUEL [place] [facility]
--- OUTSIDE RECORDS SUMMARY | 2024-03-02 08:58 | XMS_ITS ---
Author Name [facility] [place] Organization [facility] [place] Address [address] [place] [address] Care Team Providers Care Pile Header Name Role Phone BOY DELONG Primary Care [...] OPTUM RX PRESCRIPT ION HEALT H [facility] Mar 07, 2020 [facility] [id number] MARGARETH HONG RRYL PATIENT Selected Encounter This section includes the information on record at [place] for the Encounter. Date/Time Encounter Type Encounter Description Reason Provider Source August 05, 2023 09:00 AM MTMS BY PHARM ADDL 15 MIN [facility] - IND ICD-10-CM F32.1 Major depressive disorder, single episode, moderate PRETTY MEEHAN Rosibel Encounter Template Text not used by [place] Assessments - Encounter Diagnoses This section includes the primary and secondary diagnoses documented for the Encounter. Date/Time Primary/Secondary Diagnosis Diagnosis Name Provider Source August 05, 2023 09:59 AM PRIMARY Major depressive disorder, single episode, moderate PRETTY MEEHAN [facility] Plan of Treatment: Future Appointments (+ 6 months) and Future Tests (+/- 45 days) The Plan of Treatment section includes future care activities for the patient from all [place] [facility] This section includes future appointments and future orders which are active, pending or scheduled. Future Appointments This section includes appointments that were scheduled to occur 6 months from the date of the Encounter, up to a maximum of 20 appointments. The data comes from all [place] treatment facilities. Appointment Date/Time Appointment Type Appointme nt Facility Name Aug 11, 2023 10:40 AM [facility]ORY [facility] Aug 19, 2023 10:00 AM [facility] Sep 09, 2023 09:30 AM [facility] Oct 14, 2023 09:30 AM AMBULATORY [facility] Oct 28, 2023 10:00 AM AMBULATORY - [facility] Nov 11, 2023 11:00 AM AMBULATORY - [facility] Nov 14, 2023 03:00 PM AMBULATORY [facility] MEDICINE [facility] Nov 17, 2023 08:00 AM AMBULATORY - MEDICINE [place] [facility] Jan 06, 2024 10:00 AM AM[facility]ULATORY - MEDICINE [facility] Jan 10, 2024 11:15 AM AMBULATORY - NONE [facility] Jan 10, 2024 11:30 AM AMBULATORY - NONE [facility] Jan 13, 2024 10:00 AM AMBULATORY - PS[facility]RY [facility] Jan 13, 2024 01:00 PM AMBULATORY [facility] MEDICINE [facility] Feb 03, 2024 03:30 PM AMBULATORY - MEDICINE [facility]NOTE 2[facility]I [facility] Encounter Notes: All associated encounter notes [...] not feel rested; avg 4hrs Apetite: okay [place] reports the following regarding medications: -N--Y- [ [...] following review of all active psychotropic and BODY SPECIALIST-active agents is to ensure pharmacotherapy is evaluated [...] Other: RTC Interval: every 4-6weeks Next Apt: [id number] [place] was provided creative services writer's contact information and instructed to contact creative services writer as needed for any changes to scheduling or concerns otherwise. [place] is aware of actions to take if they feel unsafe, including calling the 's Crisis Line (#775); calling 911; or going to the nearest urgent care or emergency room. The is also aware of how to contact the clinic should the require additional services prior to the next appointment. Time spent on chart review, session, and documentation: 60minutes /ivone/ Dieudonne Meehan PharmD Clinical Pharmacist Practitioner Signed: 08/12/2023 16:28 DIEUDONNE MEEHAN [place] [facility]
--- OUTSIDE RECORDS SUMMARY | 2024-03-02 08:58 | XMS_ITS | Encounter Summary ---
Author Name Department [place] Organization [place] Address [address] [place] [address] Care Team Providers Care In Home Caregiver Name Role Phone BOY DELONG Primary Care [...] OPTUM RX PRESCRIPT ION HEALT H [facility] Mar 07, 2020 [facility] [id number] MARGARETH HONG RRYL PATIENT Selected Encounter This section includes the information on record at [place] for the Encounter. Date/Time Encounter Type Encounter Description Reason Provider Source Jun 21, 2023 08:00 AM OFF/OP EST JULY X REQ PHY/Q [facility] - IND ICD-10-CM Z71.89 Other specified counseling MCKENZIE TUCKER Encounter Template Text not used by [place] Assessments - Encounter Diagnoses This section includes the primary and secondary diagnoses documented for the Encounter. Date/Time Primary/Secondary Diagnosis Diagnosis Name Provider Source Jun 21, 2023 08:55 AM PRIMARY Other specified counseling MCKENZIE TUCKER Plan of Treatment: Future Appointments (+ 6 months) and Future Tests (+/- 45 days) The Plan of Treatment section includes future care activities for the patient from all [place] [facility] This section includes future appointments [...] AMBULATORY - NONE [facility] [place] [facility] Jun 24, 2023 11:30 AM AMBULATORY - [facility]HAB MEDICIN [facility] [place] [facility] July 22, 2023 01:00 PM AMBULATORY - PSYCHIATRY [facility] August 03, 2023 08:00 AM AMBULATORY - REHAB MEDICIN E [place] August 05, 2023 09:00 AM AMBULATORY - PS[facility]CHIATRY [facility] [place] [facility] August 05, 2023 03:00 PM AMBULATORY - PS[facility]CHIATRY [facility] [place] [facility] Aug 11, 2023 10:40 AM AMBULATORY - MEDICINE [place] [facility] [place] [facility] Aug 19, 2023 10:00 AM AMBULATORY - REHAB MEDICIN E [place] Sep 09, 2023 09:30 AM AMBULATORY - PS[facility]CHIATRY [facility] [place] [facility] Oct 14, 2023 09:30 AM AMBULATORY - PS[facility]CHIATRY [facility] [place] [facility] Oct 28, 2023 10:00 AM AMBULATORY - PS[facility]CHIATRY [facility] [place] [facility] Nov 11, 2023 11:00 AM AMBULATORY - PS[facility]CHIATRY [facility] [place] [facility] Nov 14, 2023 03:00 PM AMBULATORY - MEDICINE [place] [facility] [place] [facility] Nov 17, 2023 08:00 AM AMBULATORY - MEDICINE [place] [facility] [place] [facility] Lab Results: +/- 30 days [...] Range Comment Jun 09, 2023 08:32 AM [place] VITAMIN D (25-OH) Specimen Type: SERUM No comment entered. Ordering Provider: BOY DELONG Report Released Date/Time: Dec 14, 2022 10:56 AM Reporting Lab: [address] [address] Performing Lab: [address] [address] VITAMIN D (25-OH) 21 ng/mL 20-50 Jun 09, 2023 08:32 AM [place] URINALYSIS Specimen Type: URINE Comment: If Glucose = >500 and Ketones are positive, please alert the Physician. Ordering Provider: BOY DELONG Report Released Date/Time: Dec 14, 2022 10:56 AM Reporting Lab: [address] [address] Performing Lab: [address] [address] UA COLOR Light-Yellow Yellow UA APPEARANCE Clear Clear UA GLUCOSE NEGATIVE mg/dL Negative UA KETONES NEGATIVE mg/dL Negative UA BLOOD NEGATIVE mg/dL Negative UA PROTEIN NEGATIVE mg/dL Negative UA NITRITE NEGATIVE mg/dL Negative UA BILIRUBIN NEGATIVE mg/dL Negative UA SPECIFIC GRAVITY 1.015 L 1.016-1.02 2 UA pH 5.5 5.0-9.0 UA UROBILINOGEN <2.0 mg/dL <2.0 UA LEUKOCYTE NEGATIVE Negative Jun 09, 2023 08:32 AM [place] VITAMIN B12 Specimen Type: SERUM No comment entered. Ordering Provider: BOY DELONG Report Released Date/Time: Dec 14, 2022 10:56 AM Reporting Lab: [address] [address] Performing Lab: [address] [address] VITAMIN B12 580 pg/mL 200-900 Jun 09, 2023 08:32 AM [place] FERRITIN Specimen Type: SERUM No comment entered. Ordering Provider: BOY DELONG Report Released Date/Time: Dec 14, 2022 10:56 AM Reporting Lab: [address] [address] Performing Lab: [address] [address] FERRITIN 199 ng/mL 20-300 Jun 09, 2023 08:32 AM [place] CBC AND DIFF (AUTO) Specimen Type: BLOOD No comment entered. Ordering Provider: BOY DELONG Report Released Date/Time: Dec 14, 2022 10:56 AM Reporting Lab: [facility] [address] [address] Performing Lab: [facility] [address] [address] WBC 4.38 10*3/uL L 4.50-11.00 RBC 5.42 10*6/uL 4.23-5.66 HGB 15.0 g/dL 12.8-17 HCT 44.9 39.2-50.4 MCV 82.8 fL 82-99 MCHC 33.4 g/dL 30.8-35.1 PLT 265 10*3/uL 140-360 RDW-CV 12.8 12.0-16.0 Sioux, Abs 0.37 10*3/uL 0.30-1.10 MCH 27.7 pg 26.2-32.6 Neut % 56.0 43.7-75.8 Lymph % 31.7 14.0-42.3 [place] % 8.4 5.1-13.7 Eos % 3.0 0.4-6.8 Baso % 0.7 0.1-2.0 Neut, Abs 2.45 10*3/uL 2.20-7.60 Lymph, Abs 1.39 10*3/uL 1.00-3.20 Eos, Abs 0.13 10*3/uL 0.03-0.44 Baso, Abs 0.03 10*3/uL 0.01-0.13 Immature Gran % 0.2 0.0-0.7 Immature Gran, Abs 0.01 10*3/uL 0.00-0.06 Jun 09, 2023 08:32 AM [place] RETICULOCYTES Specimen Type: BLOOD No comment entered. Ordering Provider: BOY DELONG Report Released Date/Time: Dec 14, 2022 10:56 AM Reporting Lab: [facility] [address] [address] Performing Lab: [facility] [address] [address] RETIC % 1.1 0.6-2.0 RETIC, ABS 61.8 10*3/uL 30.0-90.0 Ret-He % 31.3 27.9-42.0 Jun 09, 2023 08:32 AM [place] HEMOGLOBIN A1C PANEL Specimen Type: BLOOD Comment: [...] Dec 14, 2022 10:56 AM Reporting Lab: [place] [facility] [place] [id number] Performing Lab: [facility] [place] [address] HEMOGLOBIN A1C 5.8 H 4.0-5.6 Jun 09, 2023 08:32 AM [place] TSH Specimen Type: SERUM No comment entered. Ordering Provider: BOY DELONG Report Released Date/Time: Dec 14, 2022 10:56 AM Reporting Lab: [place] [facility] [address] Performing Lab: [place] [facility] TSH 2.27 u[IU]/mL 0.35-5.00 Jun 09, 2023 08:32 AM [place] PSA Specimen Type: SERUM No comment entered. Ordering Provider: BOY DELONG Report Released Date/Time: Dec 14, 2022 10:56 AM Reporting Lab: [place] [facility] [place] [phone] Performing Lab: [place] [facility] [place] [address] PSA 2.13 ng/mL 0.00-4.00 Jun 09, 2023 08:32 AM [place] BASIC METABOLIC PANEL (fasting) Specime n Type: SERUM No comment entered. Ordering Provider: BOY DELONG Report Released Date/Time: Dec 14, 2022 10:56 AM Reporting Lab: [address] [address] Performing Lab: [address] [address] UREA NITROGEN 15 mg/dL 7-25 GLUCOSE 113 mg/dL H 65-100 SODIUM 141 mmol/L 135-145 POTASSIUM 3.9 mmol/L 3.5-5.0 CHLORIDE 108 mmol/L 100-110 CO2 24 meq/L 20-30 CREATININE, Serum 1.17 mg/dL 0.50-1.40 eGFR(CKD-EPI 2020) 71 mL/min >60 Jun 09, 2023 08:32 AM [place] LIPID PANEL FASTING Specimen Type: SERUM No comment entered. Ordering Provider: BOY DELONG Report Released Date/Time: Dec 14, 2022 10:56 AM Reporting Lab: [address] [address] Performing Lab: [address] [address] CHOLESTEROL 173 mg/dL TRIGLYCERIDE 81 mg/dL 0-150 LDL calculated 118 mg/dL 0-129 CHOL/HDL 4.4 HDL CHOLESTEROL 39 mg/dL L 40-60 Jun 09, 2023 08:32 AM [place] LIVER FUNCTION Specimen Type: SERUM No comment entered. Ordering Provider: BOY DELONG Report Released Date/Time: Dec 14, 2022 10:56 AM Reporting Lab: [address] [address] Performing Lab: [address] [address] PROTEIN,TOTAL 6.9 g/dL 6.0-8.3 ALBUMIN 4.0 g/dL 3.5-5.0 ALKALINE PHOSPHATASE 66 U/L 40-150 AST 19 U/L 5-34 ALT 27 U/L BILIRUBIN, TOTAL 0.5 mg/dL 0.2-1.2 Jun 09, 2023 08:32 AM [place] URIC ACID Specimen Type: SERUM No comment entered. Ordering Provider: BOY DELONG Report Released Date/Time: Dec 14, 2022 10:56 AM Reporting Lab: [facility] [address] [address] Performing Lab: [facility] [address] [address] URIC ACID 5.6 mg/dL 3.5-7.2 Jun 09, 2023 08:32 AM [place] CALCIUM Specimen Type: SERUM No comment entered. Ordering Provider: BOY DELONG Report Released Date/Time: Dec 14, 2022 10:56 AM Reporting Lab: [facility] [address] [address] Performing Lab: [facility] [address] [address] CALCIUM 8.8 mg/dL 8.5-10.2 Social History: Smoking Status (Most current) and Tobacco Use (All prior to encounter date) This section includes the most current, and the historical, smoking and tobacco- related health factors from the [place] facility where the Encounter took place. Current Smoking Status This section includes the most current smoking, or tobacco-related health factor, from the [place] facility where the Encounter took place. Date/Time Current Smoking Status Comment Matthew ity Jun 10, 2023 11:30 [facility] [place] Tobacco Use History This section includes a history of the smoking, or tobacco-related health factors, that were collected on or before the date of the Encounter. The data comes from the [place] facility where the Encounter took place. Date/Time Smoking Status/Tobacco Use Comment F acility May 14, 2022 11:30 AM [place]-TOBACCO NEVER USED [place] Mar 27, 2021 11:00 AM [facility] [place] Radiology Reports: +/- 30 days of the [...] 2023 10:59 AM ABDOMINAL ULTRASOUND: LUPILLO HONG [id number] -1960 M Exm Date: JUN 24, 2023@10:59 Req Phys: BOY DELONG Loc: CWM/SO/PACT 3 WH (Req'g Loc) Img Loc: ULTRASOUND Service: Unknown (Case 264 COMPLETE) [employer] ABDOMEN [employer] ([place] Detailed) CPT:36987 Reason for Study: umbilical hernia Clinical History: need views before seeing karen trujillo Report Status: Verified Date Reported: JUN 25, 2023 Date Verified: JUN 25, 2023 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 Comparison: None [...] containing hernia. READING PHYSICIAN: Mikhail Andrews MD -[id number] 06/24/2023 23:15 PDT [facility] National Teleradiology Program [phone] (For Medical Practitioner Use Only) Attention Patients / Veterans: If you have questions or concerns about these test results, please contact your ordering provider or primary care team. Primary Diagnostic Code: NO ALERT REQUIRED Primary Interpreting Staff: RADIOLOGY,OUTSIDE SERVICE, Staff Physician / RADIOLOGY,OUTSIDE SERVICE [place] [facility] Encounter Notes: All associated encounter notes [...] see note dated 06/20. /ivone/ GALILEA Guevara ELEMENTARY VOCAL MUSIC TEACHER Signed: 06/21/2023 08:56 MCKENZIE TUCKER CAROL Jun 21, 2023 08:30 AM TELEHEALTH NOTE: LOCAL TITLE: [place] VIDEO CONNECT SOCIAL WORK NOTE STANDARD TITLE: TELEHEALTH NOTE DATE OF NOTE: JUN 21, 2023@08:30 ENTRY DATE: JUN 21, 2023@08:30:30 AUTHOR: MCKENZIE TUCKER EXP COSIGNER: URGENCY: STATUS: COMPLETED [facility] (VVC) Standard Documentation VVC Clinician Resources Only: E911 (Emergency Call Relay Center): [phone] [place] [employer] Crisis Line - 988 then press #1. [facility] Suicide Coordinator [phone], Ext. [phone]; Back-up Ext. [phone] [place] Police, [place] [phone] Introduction: Visit is being conducted by [place] [employer]. Bangs identified with 2 identifiers: [X] Full Name [X] Date of [ ] VA ID Card Emergency Plan: Bangs confirmed and/or provided the following information in case of emergency or technology failure. PATIENT PHONE - PHONE NUMBER [CELLULAR] - NONE FOUND Is patient phone number correct, if not, enter below: Bangs's phone number: s/p LUPILLO HONG [address], [place], [address] Bangs's present location and address for appointment: s/a Bangs's emergency contact name and phone number: as in chart reported that location is private and safe: Yes Informed Consent: Bangs informed of the risks and benefits of Telehealth video care. Bangs has the right to refuse video services. If refuses video visit, a [id number] visit will be scheduled. 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 Financially things have been difficult, he recently [...] if he spends too much at the cas[employer]igenta. was polite and cooperative, clean cut, wearing his work shirt. Leading questions needed to be asked, he did not speak easily about himself or his situation. This is his first experience w . He is unsure about psych medications at this time- I am on so many right now I just don't know . consult placed. /ivone/ GALILEA Guevara ELEMENTARY VOCAL MUSIC TEACHER Signed: 06/21/2023 08:55 MCKENZIE TUCKER [place]
--- OUTSIDE RECORDS SUMMARY | 2024-03-02 08:58 | XMS_ITS | Encounter Summary ---
Author Name [facility] [place] Address [address] [place] [address] Care Team Providers Care Tourist Home Keeper Name Role Phone BOY DELONG Primary Care [...] RX PRESCRIPT ION HEALT H NEW ENGL [facility] Mar 07, 2020 [facility] [id number] MARGARETH HONG RRYL PATIENT Selected Encounter This section includes the information on record at [place] for the Encounter. Date/Time Encounter Type Encounter Description Reason Pro vider Source Jun 17, 2023 08:00 AM Outpatient Encounter [facility] Encounter Template Text not used by [place] [...] AMBULATORY - NONE [facility] [place] [facility] Jun 24, 2023 11:30 AM AMBULATORY - [facility]AB MEDICIN [facility] [place] [facility] July 22, 2023 01:00 PM AMBULATORY - PS[facility]ATRY [facility] August 03, 2023 08:00 AM AMBULATORY - [facility]IC[facility] August 05, 2023 09:00 AM AM[facility] [place] [facility] August 05, 2023 03:00 PM AMBULATORY - PS[facility]ATRY [facility] [place] [facility] Aug 11, 2023 10:40 AM AM[facility]ULAT[facility]ICINE [facility] [place] [facility] Aug 19, 2023 10:00 AM AMBULATORY - REHAB MEDICIN E [facility] Sep 09, 2023 09:30 AM AMBULATORY [facility] [place] [facility] Oct 14, 2023 09:30 AM AMBULATORY [facility] PS[facility]IATRY [facility] [place] [facility] Oct 28, 2023 10:00 AM AMBULATORY - PS[facility]CHIATRY [facility] [place] [facility] Nov 11, 2023 11:00 AM AMBULATORY - PS[facility]IATRY [facility] [place] [facility] Nov 14, 2023 03:00 PM AMBULATORY [facility] MEDICINE [facility] [place] [facility] Nov 17, 2023 08:00 AM AMBULATORY - MEDICINE [facility] [place] [facility] Lab Results: +/- 30 days of the encounter This section includes the Chemistry and Hematology Lab Results on record with [place] for the patient. Radiology Reports and Pathology Reports are provided separately, in subsequent sections. Lab Results This section contains the Chemistry/Hematology Results that were resulted 30 days before or 30 daysafter the date of the Encounter. Date/Time Source Result Type Result - Unit Interpretation Reference Range Comment Jun 09, 2023 08:32 AM [facility] VITAMIN D (25-OH) Specimen Type: SERUM No comment entered. Ordering Provider: BOY DELONG Report Released Date/Time: Dec 14, 2022 10:56 AM Reporting Lab: [facility] [address] [address] Performing Lab: [facility] [address] [address] VITAMIN D (25-OH) 21 ng/mL 20-50 Jun 09, 2023 08:32 AM [facility] URINALYSIS Specimen Type: URINE Comment: If Glucose = >500 and Ketones are positive, please alert the Physician. Ordering Provider: BOY DELONG Report Released Date/Time: Dec 14, 2022 10:56 AM Reporting Lab: [address] [address] Performing Lab: [address] [address] UA COLOR Light-Yellow Yellow UA APPEARANCE Clear Clear UA GLUCOSE NEGATIVE mg/dL Negative UA KETONES NEGATIVE mg/dL Negative UA BLOOD NEGATIVE mg/dL Negative UA PROTEIN NEGATIVE mg/dL Negative UA NITRITE NEGATIVE mg/dL Negative UA BILIRUBIN NEGATIVE mg/dL Negative UA SPECIFIC GRAVITY 1.015 L 1.016-1.02 2 UA pH 5.5 5.0-9.0 UA UROBILINOGEN <2.0 mg/dL <2.0 UA LEUKOCYTE NEGATIVE Negative Jun 09, 2023 08:32 AM [facility] VITAMIN B12 Specimen Type: SERUM No comment entered. Ordering Provider: BOY DELONG Report Released Date/Time: Dec 14, 2022 10:56 AM Reporting Lab: [address] [address] Performing Lab: [place] [address] VITAMIN B12 580 pg/mL 200-900 Jun 09, 2023 08:32 AM [facility] FERRITIN Specimen Type: SERUM No comment entered. Ordering Provider: BOY DELONG Report Released Date/Time: Dec 14, 2022 10:56 AM Reporting Lab: [address] [address] Performing Lab: [address] [address] FERRITIN 199 ng/mL 20-300 Jun 09, 2023 08:32 AM [facility] CBC AND DIFF (AUTO) Specimen Type: BLOOD No comment entered. Ordering Provider: BOY DELONG Report Released Date/Time: Dec 14, 2022 10:56 AM Reporting Lab: [address] [place] [address] Performing Lab: [address] [address] WBC 4.38 10*3/uL L 4.50-11.00 RBC 5.42 10*6/uL 4.23-5.66 HGB 15.0 g/dL 12.8-17 HCT 44.9 39.2-50.4 MCV 82.8 fL 82-99 MCHC 33.4 g/dL 30.8-35.1 PLT 265 10*3/uL 140-360 RDW-CV 12.8 12.0-16.0 [place], Abs 0.37 10*3/uL 0.30-1.10 MCH 27.7 pg 26.2-32.6 Neut % 56.0 43.7-75.8 Lymph % 31.7 14.0-42.3 [place] % 8.4 5.1-13.7 Eos % 3.0 0.4-6.8 Baso % 0.7 0.1-2.0 Neut, Abs 2.45 10*3/uL 2.20-7.60 Lymph, Abs 1.39 10*3/uL 1.00-3.20 Eos, Abs 0.13 10*3/uL 0.03-0.44 Baso, Abs 0.03 10*3/uL 0.01-0.13 Immature Gran % 0.2 0.0-0.7 Immature Gran, Abs 0.01 10*3/uL 0.00-0.06 Jun 09, 2023 08:32 AM [facility] RETICULOCYTES Specimen Type: BLOOD No comment entered. Ordering Provider: BOY DELONG Report Released Date/Time: Dec 14, 2022 10:56 AM Reporting Lab: [facility] [address] [facility] [address] Performing Lab: [address] [address] RETIC % 1.1 0.6-2.0 RETIC, ABS 61.8 10*3/uL 30.0-90.0 Ret-He % 31.3 27.9-42.0 Jun 09, 2023 08:32 AM [facility] HEMOGLOBIN A1C PANEL Specimen Type: BLOOD Comment: [...] 14, 2022 10:56 AM Reporting Lab: [facility] [place] [address] [address] Performing [facility]: [facility] [place] [address] [address] HEMOGLOBIN A1C 5.8 H 4.0-5.6 Jun 09, 2023 08:32 AM [facility] TSH Specimen Type: SERUM No comment entered. Ordering Provider: BOY DELONG Report Released Date/Time: Dec 14, 2022 10:56 AM Reporting Lab: [facility] [place] [address] [address] Performing [facility]: [facility] [place] [address] [address] TSH 2.27 u[IU]/mL 0.35-5.00 Jun 09, 2023 08:32 AM [facility] PSA Specimen Type: SERUM No comment entered. Ordering Provider: BOY DELONG Report Released Date/Time: Dec 14, 2022 10:56 AM Reporting Lab: [facility] [place] [address] [address] Performing Lab: [facility] [place] [address] [address] PSA 2.13 ng/mL 0.00-4.00 Jun 09, 2023 08:32 AM [facility] BASIC METABOLIC PANEL (fasting) Specime n Type: SERUM No comment entered. Ordering Provider: BOY DELONG Report Released Date/Time: Dec 14, 2022 10:56 AM Reporting Lab: [facility] [place] [address] [address] Performing Lab: [facility] [address] UREA NITROGEN 15 mg/dL 7-25 GLUCOSE 113 mg/dL H 65-100 SODIUM 141 mmol/L 135-145 POTASSIUM 3.9 mmol/L 3.5-5.0 CHLORIDE 108 mmol/L 100-110 CO2 24 meq/L 20-30 CREATININE, Serum 1.17 mg/dL 0.50-1.40 eGFR(CKD-EPI 2020) 71 mL/min >60 Jun 09, 2023 08:32 AM [facility] LIPID PANEL FASTING Specimen Type: SERUM No comment entered. Ordering Provider: BOY DELONG Report Released Date/Time: Dec 14, 2022 10:56 AM Reporting Lab: [address] [address] Performing Lab: [address] [address] CHOLESTEROL 173 mg/dL TRIGLYCERIDE 81 mg/dL 0-150 LDL calculated 118 mg/dL 0-129 CHOL/HDL 4.4 HDL CHOLESTEROL 39 mg/dL L 40-60 Jun 09, 2023 08:32 AM [facility] LIVER FUNCTION Specimen Type: SERUM No comment entered. Ordering Provider: BOY DELONG Report Released Date/Time: Dec 14, 2022 10:56 AM Reporting Lab: [address] [address] Performing Lab: [address] [address] PROTEIN,TOTAL 6.9 g/dL 6.0-8.3 ALBUMIN 4.0 g/dL 3.5-5.0 ALKALINE PHOSPHATASE 66 U/L 40-150 AST 19 U/L 5-34 ALT 27 U/L BILIRUBIN, TOTAL 0.5 mg/dL 0.2-1.2 Jun 09, 2023 08:32 AM [facility] URIC ACID Specimen Type: SERUM No comment entered. Ordering Provider: BOY DELONG Report Released Date/Time: Dec 14, 2022 10:56 AM Reporting Lab: [address] [address] Performing Lab: [address] [address] URIC ACID 5.6 mg/dL 3.5-7.2 Jun 09, 2023 08:32 AM [facility] CALCIUM Specimen Type: SERUM No comment entered. Ordering Provider: BOY DELONG Report Released Date/Time: Dec 14, 2022 10:56 AM Reporting Lab: [facility] [address] [facility] [address] Performing Lab: [facility] [address] [facility] [address] CALCIUM 8.8 mg/dL 8.5-10.2 Social History: Smoking [...] Facil ity Jun 10, 2023 11:30 AM [place]-TOBACCO NEVER USED [facility] Tobacco Use History This section includes a history of the smoking, or tobacco-related health factors, that were collected on or before the date of the Encounter. The data comes from the [place] facility where the Encounter took place. Date/Time Smoking Status/Tobacco Use Comment F acility May 14, 2022 11:30 AM [place]-TOBACCO NEVER USED [facility] Mar 27, 2021 11:00 AM [place]-TOBACCO NEVER USED [facility] Radiology Reports: +/- 30 days of the [...] 2023 10:59 AM ABDOMINAL ULTRASOUND: LUPILLO HONG [id number] -1960 M Exm Date: JUN 24, 2023@10:59 Req Phys: BOY DELONG Loc: CWM/SO/PACT 3 WH (Req'g Loc) Img Loc: ULTRASOUND Service: Unknown (Case 264 COMPLETE) [employer] (US Detailed) CPT:96865 Reason for Study: umbilical hernia Clinical History: need views before seeing karen trujillo Report Status: Verified Date Reported: JUN 25, 2023 Date Verified: JUN 25, 2023 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 READING PHYSICIAN: Mikhail Andrews MD -[id number] 06/24/2023 23:[address] [facility] National Teleradiology Program [phone] (For Medical Practitioner Use Only) Attention Patients / Veterans: If you have questions or concerns about these test results, please contact your ordering provider or primary care team. Primary Diagnostic Code: NO ALERT REQUIRED Primary Interpreting Staff: RADIOLOGY,OUTSIDE SERVICE, Staff Physician / RADIOLOGY,OUTSIDE SERVICE [facility] Encounter Notes: All associated encounter notes This section contains the clinical notes associated to the Encounter. Date/Time Encounter Note(s) Provider Source Jun 20, 2023 09:32 AM ADDENDUM: LOCAL TITLE: Addendum STANDARD TITLE: ADDENDUM DATE OF NOTE: JUN 20, 2023@09:32:11 ENTRY DATE: JUN 20, 2023@09:32:11 AUTHOR: RAQUEL HANSEN EXP COSIGNER: URGENCY: STATUS: COMPLETED Appt marked NS and Letter Sent alerting consult layaway clerk. /ivone/ RAQUEL HANSEN ADVANCED COMPUTER FORENSIC SPECIALIST Signed: 06/20/2023 09:32 Receipt Acknowledged By: 06/20/2023 10:05 /ivone/ NELLI NGUYEN Advanced Patient Scheduler ======== --- Original Document --- 06/17/23 APPOINTMENT NO SHOW: Patient Name: LUPILLO HONG Patient SSN: [id number] Date and time of Appointment No show [...] 10:00 CWM/SO/PACT 3 WH /ivone/ GALILEA Guevara ART APPRAISER Signed: 06/17/2023 12:45 Receipt Acknowledged By: 06/20/2023 09:32 /ivone/ RAQUEL HANSEN ADVANCED COMPUTER FORENSIC SPECIALIST RAQUEL HANSEN Jun 17, 2023 12:43 PM CLERICAL NOTE: LOCAL TITLE: APPOINTMENT NO SHOW STANDARD TITLE: CLERICAL NOTE DATE OF NOTE: JUN 17, 2023@12:43 ENTRY DATE: JUN 17, 2023@12:44 AUTHOR: MCKENZIE TUCKER EXP COSIGNER: URGENCY: STATUS: COMPLETED APPOINTMENT NO SHOW Has ADDENDA Patient Name: LUPILLO HONG Patient SSN: [id number] Date and time of Appointment No show [...] 01/06/2024 10:00 CWM/SO/PACT 3 /ivone/ GALILEA Guevara ART APPRAISER Signed: 06/17/2023 12:45 Receipt Acknowledged By: 06/20/2023 09:32 /ivone/ RAQUEL HANSEN ADVANCED COMPUTER FORENSIC SPECIALIST 06/20/2023 ADDENDUM STATUS: COMPLETED Appt marked NS and Letter Sent alerting consult layaway clerk. /ivone/ RAQUEL HANSEN ADVANCED COMPUTER FORENSIC SPECIALIST Signed: 06/20/2023 09:32 Receipt Acknowledged By: * AWAITING SIGNATURE * NELLI GNUYEN,MCKENZIE TIDWELLFIELD
--- OUTSIDE RECORDS SUMMARY | 2024-03-02 08:58 | XMS_ITS | Encounter Summary ---
Author Name [place] Address [address] [place] [address] Care Team Providers Care Partner Alliance Manager Name Role Phone BOY DELONG Primary [...] RX PRESCRIPT ION HEALT H NEW ENGL [facility] Mar 07, 2020 [facility] [id number] MARGARETH HONG RRYL PATIENT Selected Encounter [...] activities for the patient from all [place] treatmentfacilities. This section includes future appointments and [...] 17, 2023 08:00 AM AMBULATORY - PSYCHIATRY [facility] Jun 21, 2023 08:00 AM AMBULATORY - PSYCHIATRY [facility] Jun 24, 2023 11:00 AM AMBULATORY - NONE [facility] [place] [facility] Jun 24, 2023 11:30 AM AMBULATORY - REHAB MEDICIN E [facility] [place] [facility] July 22, 2023 01:00 PM AMBULATORY - PSYCHIATRY [facility] August 03, 2023 08:00 AM AMBULATORY - [place] MEDICIN [place] August 05, 2023 09:00 AM AMBULATORY - PS[facility]IATRY [facility] [place] [facility] August 05, 2023 03:00 PM AMBULATORY - PS[facility]CHIATRY [facility] [place] [facility] Aug 11, 2023 10:40 AM AMBULATORY [facility] MEDICINE [facility] [place] [facility] Aug 19, 2023 10:00 AM AMBULATORY - REHAB MEDICIN E [place] Sep 09, 2023 09:30 AM AMBULATORY - PS[facility]IATRY [facility] [place] [facility] Oct 14, 2023 09:30 AM AMBULATORY - PS[facility]CHIATRY [facility] [place] [facility] Oct 28, 2023 10:00 AM AMBULATORY - PS[facility]CHIATRY [facility] [place] [facility] Nov 11, 2023 11:00 AM AMBULATORY - PS[facility]CHIATRY [facility] [place] [facility] Nov 14, 2023 03:00 PM AMBULATORY - MEDICINE [facility] [place] [facility] Nov 17, 2023 08:00 AM AMBULATORY - MEDICINE [facility] [place] [facility] Lab Results: +/- 30 days of [...] Range Comment Jun 09, 2023 08:32 AM [place] VITAMIN D (25-OH) Specimen Type: SERUM No comment entered. Ordering Provider: BOY DELONG Report Released Date/Time: Dec 14, 2022 10:56 AM Reporting Lab: [facility] [place] [address] [address] Performing Lab: [address] [address] VITAMIN D (25-OH) 21 ng/mL 20-50 Jun 09, 2023 08:32 AM [place] URINALYSIS Specimen Type: URINE Comment: If Glucose = >500 and Ketones are positive, please alert the Physician. Ordering Provider: BOY DELONG Report Released Date/Time: Dec 14, 2022 10:56 AM Reporting Lab: [address] [address] Performing Lab: [address] [address] UA COLOR Light-Yellow Yellow UA APPEARANCE Clear Clear UA GLUCOSE NEGATIVE mg/dL Negative UA KETONES NEGATIVE mg/dL Negative UA BLOOD NEGATIVE mg/dL Negative UA PROTEIN NEGATIVE mg/dL Negative UA NITRITE NEGATIVE mg/dL Negative UA BILIRUBIN NEGATIVE mg/dL Negative UA SPECIFIC GRAVITY 1.015 L 1.016-1.02 2 UA pH 5.5 5.0-9.0 UA UROBILINOGEN <2.0 mg/dL <2.0 UA LEUKOCYTE NEGATIVE Negative Jun 09, 2023 08:32 AM [place] VITAMIN B12 Specimen Type: SERUM No comment entered. Ordering Provider: BOY DELONG Report Released Date/Time: Dec 14, 2022 10:56 AM Reporting Lab: [address] [address] Performing Lab: [address] [address] VITAMIN B12 580 pg/mL 200-900 Jun 09, 2023 08:32 AM [place] FERRITIN Specimen Type: SERUM No comment entered. Ordering Provider: BOY DELONG Report Released Date/Time: Dec 14, 2022 10:56 AM Reporting Lab: [address] [address] Performing Lab: [address] [address] FERRITIN 199 ng/mL 20-300 Jun 09, 2023 08:32 AM [place] RETICULOCYTES Specimen Type: BLOOD No comment entered. Ordering Provider: BOY DELONG Report Released Date/Time: Dec 14, 2022 10:56 AM Reporting Lab: [address] [address] Performing Lab: [address] [address] RETIC % 1.1 0.6-2.0 RETIC, ABS 61.8 10*3/uL 30.0-90.0 Ret-He % 31.3 27.9-42.0 Jun 09, 2023 08:32 AM [place] CBC AND DIFF (AUTO) Specimen Type: BLOOD No comment entered. Ordering Provider: BOY DELONG Report Released Date/Time: Dec 14, 2022 10:56 AM Reporting Lab: [address] [address] Performing Lab: [address] [address] WBC 4.38 10*3/uL L 4.50-11.00 RBC 5.42 10*6/uL 4.23-5.66 HGB 15.0 g/dL 12.8-17 HCT 44.9 39.2-50.4 MCV 82.8 fL 82-99 MCHC 33.4 g/dL 30.8-35.1 PLT 265 10*3/uL 140-360 RDW-CV 12.8 12.0-16.0 [place], Abs 0.37 10*3/uL 0.30-1.10 MCH 27.7 pg 26.2-32.6 Neut % 56.0 43.7-75.8 Lymph % 31.7 14.0-42.3 [place] % 8.4 5.1-13.7 Eos % 3.0 0.4-6.8 Baso % 0.7 0.1-2.0 Neut, Abs 2.45 10*3/uL 2.20-7.60 Lymph, Abs 1.39 10*3/uL 1.00-3.20 Eos, Abs 0.13 10*3/uL 0.03-0.44 Baso, Abs 0.03 10*3/uL 0.01-0.13 Immature Gran % 0.2 0.0-0.7 Immature Gran, Abs 0.01 10*3/uL 0.00-0.06 Jun 09, 2023 08:32 AM [place] PSA Specimen Type: SERUM No comment entered. Ordering Provider: BOY DELONG Report Released Date/Time: Dec 14, 2022 10:56 AM Reporting Lab: [place] [facility] [place] [facility] [address] [facility] [address] Performing Lab: [facility] [address] [facility] [address] PSA 2.13 ng/mL 0.00-4.00 Jun 09, 2023 08:32 AM [place] HEMOGLOBIN A1C PANEL Specimen Type: BLOOD Comment: [...] Dec 14, 2022 10:56 AM Reporting Lab: [facility] [place] [address] [address] Performing Lab: [facility] [address] HEMOGLOBIN A1C 5.8 H 4.0-5.6 Jun 09, 2023 08:32 AM [place] TSH Specimen Type: SERUM No comment entered. Ordering Provider: BOY DEOLNG Report Released Date/Time: Dec 14, 2022 10:56 AM Reporting Lab: [facility] [place] [facility] [address] [facility] [address] Performing Lab: [facility] [address] [address] TSH 2.27 u[IU]/mL 0.35-5.00 Jun 09, 2023 08:32 AM [place] BASIC METABOLIC PANEL (fasting) Specime n Type: SERUM No comment entered. Ordering Provider: BOY DELONG Report Released Date/Time: Dec 14, 2022 10:56 AM Reporting Lab: [facility] [place] [address] [address] Performing Lab: [facility] [address] [facility] [address] UREA NITROGEN 15 mg/dL 7-25 GLUCOSE 113 mg/dL H 65-100 SODIUM 141 mmol/L 135-145 POTASSIUM 3.9 mmol/L 3.5-5.0 CHLORIDE 108 mmol/L 100-110 CO2 24 meq/L 20-30 CREATININE, Serum 1.17 mg/dL 0.50-1.40 eGFR(CKD-EPI 2020) 71 mL/min >60 Jun 09, 2023 08:32 AM [place] LIVER FUNCTION Specimen Type: SERUM No comment entered. Ordering Provider: BOY DELONG Report Released Date/Time: Dec 14, 2022 10:56 AM Reporting Lab: [address] [address] Performing Lab: [address] [address] PROTEIN,TOTAL 6.9 g/dL 6.0-8.3 ALBUMIN 4.0 g/dL 3.5-5.0 ALKALINE PHOSPHATASE 66 U/L 40-150 AST 19 U/L 5-34 ALT 27 U/L BILIRUBIN, TOTAL 0.5 mg/dL 0.2-1.2 Jun 09, 2023 08:32 AM [place] LIPID PANEL FASTING Specimen Type: SERUM No comment entered. Ordering Provider: BOY DELONG Report Released Date/Time: Dec 14, 2022 10:56 AM Reporting Lab: [address] [address] Performing Lab: [address] [address] CHOLESTEROL 173 mg/dL TRIGLYCERIDE 81 mg/dL 0-150 LDL calculated 118 mg/dL 0-129 CHOL/HDL 4.4 HDL CHOLESTEROL 39 mg/dL L 40-60 Jun 09, 2023 08:32 AM [place] CALCIUM Specimen Type: SERUM No comment entered. Ordering Provider: BOY DELONG Report Released Date/Time: Dec 14, 2022 10:56 AM Reporting Lab: [address] [address] Performing Lab: [address] [address] CALCIUM 8.8 mg/dL 8.5-10.2 Jun 09, 2023 08:32 AM [place] URIC ACID Specimen Type: SERUM No comment entered. Ordering Provider: BOY DELONG Report Released Date/Time: Dec 14, 2022 10:56 AM Reporting Lab: [facility] [address] [facility] [address] Performing Lab: [facility] [address] [facility] [address] URIC ACID 5.6 mg/dL 3.5-7.2 Radiology Reports: [...] the Encounter. The data comes from all [place] treatment facilities. Date/Time Radiology Report Provider Source Jun 24, 2023 10:59 AM ABDOMINAL ULTRASOUND: LUPILLO HONG SMILEY [id number] -1960 M Exm Date: JUN 24, 2023@10:59 Req Phys: BOY DELONG Loc: CWM/SO/PACT 3 WH (Req'g Loc) Img Loc: ULTRASOUND Service: Unknown (Case 264 COMPLETE) [employer] ([place] Detailed) CPT:48062 Reason for Study: umbilical hernia Clinical History: need views before seeing karen trujillo Report Status: Verified Date Reported: JUN 25, 2023 Date Verified: JUN 25, 2023 Tobacco Flavorer E-Sig: Report: [employer] [PRINTSET] Clinical History: Umbilical hernia. [...] containing hernia. READING PHYSICIAN: Mikhail Andrews MD -[id number] 06/24/2023 23:15 PDT [facility] National Teleradiology Program [phone] (For Medical Practitioner Use Only) Attention Patients / Veterans: If you have questions or concerns about these test results, please contact your ordering provider or primary care team. Primary Diagnostic Code: NO ALERT REQUIRED Primary Interpreting Staff: RADIOLOGY,OUTSIDE SERVICE, Staff Physician / RADIOLOGY,OUTSIDE SERVICE [place] [facility] [place] [facility] Encounter Notes: All associated encounter notes This [...] full rights to use it throughout the [place] system. PRIMARY SCREEN RESULT: The Primary Screen [...]
--- OUTSIDE RECORDS SUMMARY | 2024-03-02 08:58 | XMS_ITS | Encounter Summary ---
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 Date/Time Encounter Type Encounter Description Reason Provider Source July 22, 2023 01:00 PM PSYCH DIAGNOSTIC EVALUATION MENTAL [facility] - IND ICD-10-CM F32.1 Major depressive disorder, single episode, moderate LJ ASHLEY Rosibel Encounter Template Text not used by [place] Assessments - Encounter Diagnoses This section includes the primary and secondary diagnoses documented for the Encounter. Date/Time Primary/Secondary Diagnosis Diagnosis Name Provider Source July 22, 2023 01:53 PM PRIMARY Major depressive disorder, single episode, moderate LJ ASHLEY CAROL Plan of Treatment: Future Appointments (+ 6 months) and Future Tests (+/- 45 days) The Plan of Treatment section includes future care activities for the patient from all [place] treatmentfacilities. This section includes future appointments and future orders which are active, pending or scheduled. Future Appointments This section includes appointments that were scheduled to occur 6 months from the date of the Encounter, up to a maximum of 20 appointments. The data comes from all [place] treatment facilities. Appointment Date/Time Appointment Type Appointme nt Facility Name August 03, 2023 08:00 AM AMBULATORY - REHAB [facility] August 05, 2023 09:00 AM AMBULATORY - [place]IATRY [place] [facility] [place] [facility] August 05, 2023 03:00 PM AMBULATORY [place] [facility]ATRY [facility] [place] [facility] Aug 11, 2023 10:40 AM AMBULATORY - MEDICINE [place] [facility] [place] [facility] Aug 19, 2023 10:00 AM AMBULATORY - RE[facility]AB [facility] Sep 09, 2023 09:30 AM AMBULATORY - PS[facility]CHIATRY [facility] [place] [facility] Oct 14, 2023 09:30 AM AMBULATORY - PS[place]IATRY [place] [facility] [place] [facility] Oct 28, 2023 10:00 AM AMBULATORY - PS[facility]CHIATRY [facility] [place] [facility] Nov 11, 2023 11:00 AM AMBULATORY - PS[facility]CHIATRY [facility] [place] [facility] Nov 14, 2023 03:00 PM AMBULATORY - MEDICINE [place] [facility] [place] [facility] Nov 17, 2023 08:00 AM AMBULATORY - MEDICINE [place] [facility] [place] [facility] Jan 06, 2024 10:00 AM AMBULATORY - MEDICINE [facility] Jan 10, 2024 11:15 AM AMBULATORY - NONE [facility] [place] [facility] Jan 10, 2024 11:30 AM AMBULATORY - NONE [facility] [place] [facility] Jan 13, 2024 10:00 AM AMBULATORY - PS[facility]CHIATRY [facility] [place] [facility] Jan 13, 2024 01:00 PM AMBULATORY [place] MEDICINE [place] [facility] [place] [facility] Social History: Smoking Status (Most current) and Tobacco Use (All prior to encounter date) This section includes the most current, and the historical, smoking and tobacco- related health factors from the [place] facility where the Encounter took place. Current Smoking Status This section includes the most current smoking, or tobacco-related health factor, from the [place] facility where the Encounter took place. Date/Time Current Smoking Status Comment Matthew blankenship Jun 10, 2023 11:30 AM VA-TOBACCO NEVER USED [place] Tobacco Use History This section includes a history of the smoking, or tobacco-related health factors, that were collected on or before the date of the Encounter. The data comes from the [place] facility where the Encounter took place. Date/Time Smoking Status/Tobacco Use Comment F acility May 14, 2022 11:30 AM [place]-TOBACCO NEVER USED [place] Mar 27, 2021 11:00 AM [place]-TOBACCO NEVER USED [place] Radiology Reports: +/- 30 days of the [...] the Encounter. The data comes from all [place] treatment facilities. 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 Comparison: None [...] containing hernia. READING PHYSICIAN: Mikhail Andrews MD -[id number] 06/24/2023 23:15 PDT [facility] National Teleradiology Program [phone] (For Medical Practitioner Use Only) Attention Patients / Veterans: If you have questions or concerns about these test results, please contact your ordering provider or primary care team. Primary Diagnostic Code: NO ALERT REQUIRED Primary Interpreting Staff: RADIOLOGY,OUTSIDE SERVICE, Staff Physician / RADIOLOGY,OUTSIDE SERVICE [place] [facility] [place] [facility] Encounter Notes: All associated encounter notes This section contains the clinical notes associated to the Encounter. Date/Time Encounter Note(s) Provider Source July 22, 2023 01:26 PM PSYCHOLOGY NOTE: LOCAL TITLE: PSYCHOLOGY NOTE STANDARD TITLE: PSYCHOLOGY NOTE DATE OF NOTE: JULY 22, 2023@13:26 ENTRY DATE: JULY 22, 2023@13:26:58 AUTHOR: LJ ASHLEY COSIGNER: URGENCY: STATUS: COMPLETED Suicide Screen: C-SSRS Screening [place]-Suicide Severity Rating Scale (C-SSRS Screener) 1. Over [...] required due to responses to other questions. HOMICIDE ASSESSMENT I. SCREENING ASSESSMENT OF DANGER TO OTHERS: 1. Have you ever tried to seriously harm someone else in the past? No 2. During the past six months have you had any thoughts about harming someone else? No 3. NO significant current risk of harm to others (both items 1 and 2 no ). /es/ LJ ASHLEY PSYD Clinical Psychologist Signed: 07/22/2023 13:55 Receipt Acknowledged By: 08/08/2023 17:31 /es/ JOSIAS CARDONA Suicide Hazardous Materials Driver LJ ASHLEY [place] July 22, 2023 12:59 PM MENTAL HEALTH CONS ULT: LOCAL TITLE: CONSULT REPORT/UNIFORM OUTPATIENT MENTAL HEALTH ASS STANDARD TITLE: MENTAL HEALTH CONSULT DATE OF NOTE: JULY 22, 2023@12:59 ENTRY DATE: JULY 22, 2023@12:59:34 AUTHOR: LJ ASHLEY EXP COSIGNER: URGENCY: STATUS: COMPLETED [facility] [employer] (VVC) Standard Documentation [facility] Clinician Resources Only: E911 (Emergency Call Relay Center): [phone] National Veterans Crisis Line - 988 then press #1. [facility] Suicide Coordinator [phone], Ext. [phone]; Back-up Ext. [phone] [place] PHIL [place] [phone] Introduction: Visit is being conducted by [employer]. identified with 2 identifiers: [X] Full Name [X] Date of [ ] VA ID Card Emergency Plan: confirmed and/or provided the following information in case of emergency or technology failure. PATIENT PHONE - PHONE NUMBER [CELLULAR] - NONE FOUND Is patient phone number correct, if not, enter below: [place]'s phone number: LUPILLO MONROE [address], [place], [address] 's present location and address for appointment: Home [place]'s emergency contact name and phone number: see chart [place] reported that location is private and safe: Yes Informed Consent: informed of the risks and benefits of Telehealth video care. [place] has the right to refuse video services. If refuses video visit, a [id number] visit will be scheduled. [place] verbalized consent for this video visit: Yes [place] provided consent for any other persons present for visit: N/A If yes, who and relationship to patient: Secure visit: Visit was locked for security and privacy:Yes INFORMED CONSENT TO PARTICIPATE IN ASSESSMENT: At beginning of session reviewed rights and limits of confidentiality, mandatory reporting situations, duty to warn and protect, [place] Warning, (if treatment team finds patient to be an acute danger to himself or others, that this information could be relayed to a court of law and presented to a sexual health physician), and [facility] access for active duty service members. Provided Suicide Prevention Hotline number, and other contact numbers as necessary. Uniform Outpatient Mental Health Assessment I. IDENTIFYING INFORMATION: LUPILLO MONROE Oct [phone] SERVICE CONNECTED % - 10 MARITAL STATUS - NEVER Referral source: Dot Goetz Present at time of intake: [place] [X] Family member [ ] Supportive person(s) Name: Language Preference:Jordanian Language Spoken:Jordanian II. PRESENTING SITUATION: A. What brings you into Mental Health at this time: life in general is just a lot that I have to handle ; He reported that he would like to talk to someone about it He stated that he has been experiencing depression for the past 10 years. He endorsed experiencing a depressed mood, anhedonia, low energy/fatigue, hypersomnia, concentration issues, and feelings of worthlessness. He also stated that he has gained weight as a result of eating sweets, which he eats to cope with his mood. B. What are some of your goals for treatment: He indicated that he was interested in talking with someone about his stressors. C. What are some of your strengths: D. What are the obstacles or challenges preventing you from meeting your goals?: III: ASSESSMENT: A. Do you have concerns about past or current mental health symptoms or problems: Yes [X] No [ ] If yes, please describe: please see above How do you see these concerns impacting past and current quality of life (School, Work, Family, Housing, Finances, Social life, Legal): B. Have you previously been involved in Mental Health treatment: Yes [ ] No [X] If yes, please check all that apply and describe: [ ] Hospitalizations (when, where, etc.): Denied [ ] Medication trials (what, when, doses, etc.): Denied [ ] Therapy trials (type, when, etc.): Denied C. Do you have concerns about current or past substance use: Yes [ ] No [X] If yes, please identify 's primary and secondary substances of choice: ALCOHOL Age of onset: 17 Method of aquiring substance: Means of use: oral Pattern of use: Duration (how long have you been using for the most recent episode): Frequency: once or twice a month Amount: it might be a beer...it might be a mixed drink Last use: 3 weeks ago maybe What was you longest period of sobriety?: Check all that apply with respect to this substance: Depending on how many boxes were checked above, indicate the severity level: Regarding the motivation for treatment, estimate 's stage of change with respect to this substance: Which withdrawl symptoms have you had when you tried to stop using substance? CANNABIS Age of onset: 17 Method of aquiring substance: Means of use: Oral; inhalation Pattern of use: Duration (how long have you been using for the most recent episode): Frequency: once in a while every couple of months Amount: I only need a couple of puffs...maybe an edible Last use: two weeks ago maybe What was you longest period of sobriety?: Check all that apply with respect to this substance: Depending on how many boxes were checked above, indicate the severity level: Regarding the motivation for treatment, estimate 's stage of change with respect to this substance: Which withdrawl symptoms have you had when you tried to stop using substance? IV: PERSONAL HISTORY/INFORMATION: A. Biological/Social History (including: relevant developmental history, family of origin, sexual/physical/emotional traumas, cultural factors, applicable sexual history): He related that he was born in [place], [place] and raised primarily in [place], [place]. He stated that he was raised by his mother. He reported that he has a younger brother. He denied any history of sexual/physical/emotional abuse. He indicated that he has never been . He stated that he has 3 daughters. B. History (including actual duties, combat/war zone duty, trauma exposure, exposure to environmental contaminants): He related that he served in the [employer] from [id number]. 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 He denied serving in a combat/war zone. 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 C. What provides you with sense of value or quality of life: I try to be a good father; I just try to be a good person D. What are some accomplishments that you feel a sense of pride about: all my daughters are college graduates; I'm not homeless; I'm pretty self-sufficient E. What brings you enjoyment: I like to fish; I like to exercise; I like listening to music; I'm a person who likes to laugh F. Are you comfortable with your current living arrangement (Have you ever been homelessness or at risk for homelessness): He related that he is able to pay his rent, although it has been getting more financially difficult to do so G. What are your social or community Supports, your healthy or positive relationships: I know a lot of people I can talk to but I don't really talk to anyone. If I have to talk to someone it would be family members H: What is your educational history or current goals: high school grad I. 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 Do you have a legal history (incarcerations, probation, parole, divorce, child custody issues): I had a stint in penitentiary for lack of child support payment but that was 3 days, 2 days...probably in the K. What is your level of anabaptism or spiritual fulfillment: I'm Islam L. How do you culturally identify? Can you anticipate any particular cultural on treatment? M. Is there anybody you would like involved in the planning or delivery of your care: N. Do you have concerns for your safety or the safety of others (domestic violence, abuse/neglect, etc): Denied O. Have you ever been in a situation where you felt you were taken advantage of or exploited, particularly by someone in a position of power? P. Income source: He stated that he works a job, and he is 10% [place] V. PHYSICAL HEALTH SCREENING A. Do you have any past or current medical concerns: Yes [X] No [ ] Active Problem Femoral acetabular impingement M25. 06/10/2023 BOY DELONG Abdominal hernia K46.9 06/27/2023 BALJEETBOY Ambulatory ECG normal R69. 06/02/2023 DELONGBOY MILES Pain in right hip joint M25.551 10/13/2022 BALJEET,BOY Acute bronchitis J20.9 05/21/2022 BALJEET,BOY Low back pain M54.50 11/10/2021 BALJEET,BOY Foot pain M79.673 10/16/2021 BALJEET,BOY Hyperglycemia R73.9 06/10/2023 BALJEET,BOY Benign hypertension I10. 06/10/2023 BALJEET,BOY Multiple renal cysts R69. 06/05/2021 BOY DELONG Screening for malignant neoplasm of 03/27/2021 BALJEET,BOY Pain of bilateral knee regions M25. 06/10/2023 BALJEET,BOY Nocturia R35.1 03/27/2021 BALJEET,BOY Dyspnea R06.00 06/05/2021 BOY DELONG Other medical problems not listed above: B. 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 Nutritional screening - Have you experienced any of the following: Food Allergies? No, describe: Significant (+/- 10lbs) gain or loss in the last three months? Yes, describe: He stated that he has gained weight ( I tend to eat my feelings ) Decrease in food intake/appetite? No, describe: Notable Dental problems? No, describe: Significant change in eating habits (purging, restricting, etc.)? No, describe: E. How do you see these concerns impacting on past and current quality of life (School, Work, Family, Housing, Finances, Social life, Legal, etc): Active Outpatient Medications (including Supplies): ALBUTEROL 90MCG (CFC-F) 200D ORAL INHL INHALE 1 PUFF BY ACTIVE MOUTH ONCE DAILY NEEDED FOR BRONCHOSPASM AMLODIPINE BESYLATE 10MG TAB TAKE ONE TABLET BY MOUTH ONCE ACTIVE DAILY FOR BLOOD PRESSURE/HEART, DO NOT TAKE WITH GRAPEFRUIT JUICE HYALURONATE NA (DUROLANE)20MG/ML SYR 3ML INJECT 60MG ACTIVE INTRA-ARTICULAR ONE TIME OSTEOARTHRITIS OF THE KNEE HYDROCHLOROTHIAZIDE 25MG TAB TAKE ONE-HALF TABLET BY MOUTH ACTIVE ONCE DAILY LORATADINE 10MG TAB TAKE ONE TABLET BY MOUTH ONCE DAILY ACTIVE FOR ALLERGY LOSARTAN 25MG TAB TAKE ONE TABLET BY MOUTH ONCE DAILY FOR ACTIVE (S) BLOOD PRESSURE/HEART : MENTAL STATUS / SUBJECTIVE COMPLAINTS: (check all that apply): Appearance:Unremarkable, Neatly groomed Behavior:Appropriate, Maintained good eye contact Mood/Affect:Other: try to keep it at a baseline Energy:Normal Sleep:Frequent disruption Orientation: Oriented to person: Yes Oriented to place: Yes Oriented to time: Yes Stream of thought:Denies Auditory/Visual Hallucinations Speech:Normal Insight / Judgment:Normal Other cognitive problems:None Relevant Observations, other notes: : DSM5 DIAGNOSES: Major Depressive Disorder, Moderate (ICD-10-CM F32.1) VII: SUMMARY AND IMPRESSIONS: Mr. Monroe is a 62-year-old [employer] [place] who was referred to the clinic by Dot Goetz. It is likely that he meets criteria for Major Depressive Disorder at this time. [place] stated that he was interested in individual psychotherapy as well as scheduling a psychiatric medication evaluation. He was also provided with information regarding the Peer Support Group and encouraged to attend group when his work schedule allows. would benefit from psychotherapy to obtain support and coping skills (e.g., CBT interventions; behavioral activation; cognitive restructuring/reframing; mindfulness/relaxation exercises). IX: NEXT STEPS: A: How can we work to meet your goals: stated that he was interested in undersigned placing a CC consult for individual psychotherapy. He also indicated that he would like to schedule a psychiatric medication evaluation. B: What would you like to see happen next: He was informed that the consults will be placed. C: Recommendations: would benefit from psychotherapy to obtain support and coping skills (e.g., CBT interventions; behavioral activation; cognitive restructuring/reframing; mindfulness/relaxation exercises). /ivone/ LJ ASHLEY PSYD Clinical Psychologist Signed: 07/22/2023 13:54 LJ ASHLEY
--- OUTSIDE RECORDS SUMMARY | 2024-03-02 08:58 | XMS_ITS | Encounter Summary ---
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 Date/Time Encounter Type Encounter Description Reason Pro vider Source Aug 10, 2023 01:16 PM Outpatient Encounter PHYSICAL THERAPY IHE Encounter Template Text not used by [place] Plan of Treatment: Future Appointments (+ 6 months) and Future Tests (+/- 45 days) The Plan of Treatment section includes future care activities for the patient from all [place] treatmentfacilities. This section includes future appointments and future orders which are active, pending or scheduled. Future Appointments This section includes appointments that were scheduled to occur 6 months from the date of the Encounter, up to a maximum of 20 appointments. The data comes from all [place] treatment facilities. Appointment Date/Time Appointment Type Appointme nt Facility Name Aug 11, 2023 10:40 AM AMBULATORY - MEDICINE [facility] [place] [facility] Aug 19, 2023 10:00 [facility] Sep 09, 2023 09:30 AM AMBULATORY - PSYCHIATRY [facility] [place] [facility] Oct 14, 2023 09:30 AM AMBULATORY - PSYCHIATRY [facility] [place] [facility] Oct 28, 2023 10:00 AM AMBULATORY - PSYCHIATRY [facility] [place] [facility] Nov 11, 2023 11:00 AM AMBULATORY - PSYCHIATRY [facility] [place] [facility] Nov 14, 2023 03:00 PM AMBULATORY - MEDICINE [facility] [place] [facility] Nov 17, 2023 08:00 AM AMBULATORY - MEDICINE [facility] [place] [facility] Jan 06, 2024 10:00 AM AMBULATORY - MEDICINE [facility] Jan 10, 2024 11:15 AM AMBULATORY - NONE [facility] [place] [facility] Jan 10, 2024 11:30 AM AMBULATORY - NONE [facility] [place] [facility] Jan 13, 2024 10:00 AM AMBULATORY - PSYCHIATRY [facility] [place] [facility] Jan 13, 2024 01:00 PM AMBULATORY - MEDICINE [facility] [place] [facility] Feb 03, 2024 03:30 PM [facility] Encounter Notes: All associated encounter [...] BONI SEVILLA Signed: 08/10/2023 14:16 BONI SEVILLA CASSAN[place]A
--- OUTSIDE RECORDS SUMMARY | 2024-03-02 08:58 | XMS_ITS ---
Author Name [facility] [place] Organization [place] Address [address] [place] [address] Care Team Providers Care Manager Staffing Name Role Phone BOY DELONG Primary Care [...] PRESCRIPT ION HEALT H NEW [facility] Mar 07, [address] [facility] [id number] MARGARETH HONG RRYL PATIENT Selected Encounter This section includes the information on record at [place] for the Encounter. Date/Time Encounter Type Encounter Description Reason Provider Source Jun 24, 2023 11:30 AM OFFICE O/P EST LOW 20 MIN PM&RS PHYSICIAN ICD-10-CM M25.859 Other specified joint disorders, unspecified hip REESE MCFADDEN E Encounter Template Text not used by [place] Assessments - Encounter Diagnoses This section includes the primary and secondary diagnoses documented for the Encounter. Date/Time Primary/Secondary Diagnosis Diagnosis Name Provider Source Jun 25, 2023 09:58 AM PRIMARY Other specified joint disorders, unspecified hip [facility] Jun 25, 2023 09:58 AM SECONDARY Bilateral primary osteoarthritis of knee NNAMDI MCFADDEN [place] [facility] [place] [facility] Jun 25, 2023 09:58 AM SECONDARY Pain in left knee NNAMDI MCFADDEN [place] [facility] [place] [facility] Jun 25, 2023 09:58 AM SECONDARY Pain in right knee NNAMDI MCFADDEN [place] [facility] [place] [facility] Plan of Treatment: Future Appointments (+ 6 months) and Future Tests (+/- 45 days) The Plan of Treatment section includes future care activities for the patient from all [place] [facility] This section includes future appointments [...] 03, 2023 08:00 AM AMBULATORY - REHAB [facility] August 05, 2023 09:00 AM AMBULATORY - PSYCHIATRY [place] [facility] [place] [facility] August 05, 2023 03:00 PM AMBULATORY - PSYCHIATRY [place] [facility] [place] [facility] Aug 11, 2023 10:40 AM AMBULATORY - MEDICINE [place] [facility] [place] [facility] Aug 19, 2023 10:00 AM AMBULATORY - REHAB [facility] Sep 09, 2023 09:30 AM AMBULATORY - PSYCHIATRY [place] [facility] [place] [facility] Oct 14, 2023 09:30 AM AMBULATORY - PSYCHIATRY [place] [facility] [place] [facility] Oct 28, 2023 10:00 AM AMBULATORY - PSYCHIATRY [place] [facility] [place] [facility] Nov 11, 2023 11:00 AM AMBULATORY - PSYCHIATRY [facility] [place] [facility] Nov 14, 2023 03:00 PM AMBULATORY - MEDICINE [place] [facility] [place] [facility] Nov 17, 2023 08:00 AM AMBULATORY - MEDICINE [place] [facility] [place] [facility] Lab Results: +/- 30 days [...] Range Comment Jun 09, 2023 08:32 AM [facility] URINALYSIS Specimen Type: URINE Comment: If Glucose = >500 and Ketones are positive, please alert the Physician. Ordering Provider: BOY DELONG Report Released Date/Time: Dec 14, 2022 10:56 AM Reporting Lab: [address] [address] Performing Lab: [address] [address] UA COLOR Light-Yellow Yellow UA APPEARANCE Clear Clear UA GLUCOSE NEGATIVE mg/dL Negative UA KETONES NEGATIVE mg/dL Negative UA BLOOD NEGATIVE mg/dL Negative UA PROTEIN NEGATIVE mg/dL Negative UA NITRITE NEGATIVE mg/dL Negative UA BILIRUBIN NEGATIVE mg/dL Negative UA SPECIFIC GRAVITY 1.015 L 1.016-1.02 2 UA pH 5.5 5.0-9.0 UA UROBILINOGEN <2.0 mg/dL <2.0 UA LEUKOCYTE NEGATIVE Negative Jun 09, 2023 08:32 AM [facility] VITAMIN D (25-OH) Specimen Type: SERUM No comment entered. Ordering Provider: BOY DELONG Report Released Date/Time: Dec 14, 2022 10:56 AM Reporting Lab: [address] [address] Performing Lab: [address] [address] VITAMIN D (25-OH) 21 ng/mL 20-50 Jun 09, 2023 08:32 AM [facility] VITAMIN B12 Specimen Type: SERUM No comment entered. Ordering Provider: BOY DELONG Report Released Date/Time: Dec 14, 2022 10:56 AM Reporting Lab: [address] [address] Performing Lab: [address] [address] VITAMIN B12 580 pg/mL 200-900 Jun 09, 2023 08:32 AM [facility] FERRITIN Specimen Type: SERUM No comment entered. Ordering Provider: BOY DELONG Report Released Date/Time: Dec 14, 2022 10:56 AM Reporting [facility]: [facility] [address] [address] Performing Lab: [facility] [address] [address] FERRITIN 199 ng/mL 20-300 Jun 09, 2023 08:32 AM [facility] RETICULOCYTES Specimen Type: BLOOD No comment entered. Ordering Provider: BOY DELONG Report Released Date/Time: Dec 14, 2022 10:56 AM Reporting Lab: [facility] [address] [address] Performing Lab: [address] [address] RETIC % 1.1 0.6-2.0 RETIC, ABS 61.8 10*3/uL 30.0-90.0 Ret-He % 31.3 27.9-42.0 Jun 09, 2023 08:32 AM [facility] CBC AND DIFF (AUTO) Specimen Type: BLOOD No comment entered. Ordering Provider: BOY DELONG Report Released Date/Time: Dec 14, 2022 10:56 AM Reporting Lab: [facility] [address] [address] Performing Lab: [address] [address] WBC 4.38 10*3/uL L 4.50-11.00 RBC 5.42 [...] 10*3/uL 0.00-0.06 Jun 09, 2023 08:32 AM [facility] PSA Specimen Type: SERUM No comment entered. Ordering Provider: BOY DELONG Report Released Date/Time: Dec 14, 2022 10:56 AM Reporting Lab: [facility] [address] [address] Performing Lab: [address] [address] PSA 2.13 ng/mL 0.00-4.00 Jun 09, 2023 08:32 AM [facility] HEMOGLOBIN A1C PANEL Specimen Type: BLOOD Comment: [...] Dec 14, 2022 10:56 AM Reporting Lab: [facility] [address] [address] Performing Lab: [address] [address] HEMOGLOBIN A1C 5.8 H 4.0-5.6 Jun 09, 2023 08:32 AM [facility] TSH Specimen Type: SERUM No comment entered. Ordering Provider: BOY DELONG Report Released Date/Time: Dec 14, 2022 10:56 AM Reporting Lab: [facility] [address] [address] Performing Lab: [address] [address] TSH 2.27 u[IU]/mL 0.35-5.00 Jun 09, 2023 08:32 AM [facility] BASIC METABOLIC PANEL (fasting) Specime n Type: SERUM No comment entered. Ordering Provider: BOY DELONG Report Released Date/Time: Dec 14, 2022 10:56 AM Reporting Lab: [facility] [address] [facility] [address] Performing Lab: [facility] [address] [facility] [address] UREA NITROGEN 15 mg/dL 7-25 GLUCOSE 113 mg/dL H 65-100 SODIUM 141 mmol/L 135-145 POTASSIUM 3.9 mmol/L 3.5-5.0 CHLORIDE 108 mmol/L 100-110 CO2 24 meq/L 20-30 CREATININE, Serum 1.17 mg/dL 0.50-1.40 eGFR(CKD-EPI 2020) 71 mL/min >60 Jun 09, 2023 08:32 AM [facility] LIPID PANEL FASTING Specimen Type: SERUM No comment entered. Ordering Provider: BOY DELONG Report Released Date/Time: Dec 14, 2022 10:56 AM Reporting Lab: [facility] [address] [facility] [address] Performing Lab: [address] [address] CHOLESTEROL 173 mg/dL TRIGLYCERIDE 81 mg/dL 0-150 LDL calculated 118 mg/dL 0-129 CHOL/HDL 4.4 HDL CHOLESTEROL 39 mg/dL L 40-60 Jun 09, 2023 08:32 AM [facility] CALCIUM Specimen Type: SERUM No comment entered. Ordering Provider: BOY DELONG Report Released Date/Time: Dec 14, 2022 10:56 AM Reporting Lab: [address] [address] Performing Lab: [address] [address] CALCIUM 8.8 mg/dL 8.5-10.2 Jun 09, 2023 08:32 AM [facility] LIVER FUNCTION Specimen Type: SERUM No comment entered. Ordering Provider: BOY DELONG Report Released Date/Time: Dec 14, 2022 10:56 AM Reporting Lab: [address] [address] Performing Lab: [address] [address] PROTEIN,TOTAL 6.9 g/dL 6.0-8.3 ALBUMIN 4.0 g/dL 3.5-5.0 ALKALINE PHOSPHATASE 66 U/L 40-150 AST 19 U/L 5-34 ALT 27 U/L BILIRUBIN, TOTAL 0.5 mg/dL 0.2-1.2 Jun 09, 2023 08:32 AM [facility] URIC ACID Specimen Type: SERUM No comment entered. Ordering Provider: BOY DELONG Report Released Date/Time: Dec 14, 2022 10:56 AM Reporting Lab: [address] [address] Performing Lab: [address] [address] URIC ACID 5.6 mg/dL 3.5-7.2 Radiology Reports: [...] Encounter. The data comes from all [facility] facilities. Date/Time Radiology Report Provider Source Jun 24, 2023 10:59 AM ABDOMINAL ULTRASOUND: LUPILLO HONG [id number] -1960 M Exm Date: JUN 24, 2023@10:59 Req Phys: BOY DELONG Pat Loc: CWM/SO/PACT 3 WH (Req'g Loc) Img Loc: ULTRASOUND Service: Unknown (Case [id number] COMPLETE) [employer] (US Detailed) CPT:97815 Reason for Study: umbilical hernia Clinical History: need views before seeing karen trujillo Report Status: Verified Date Reported: JUN 25, 2023 Date Verified: JUN 25, 2023 Seed Cutter E-Sig: Report: [employer]BD[employer] [PRINTSET] Clinical History: Umbilical hernia. [...] containing hernia. READING PHYSICIAN: Mikhail Andrews MD -[id number] 06/24/2023 23:15 PDT [facility] National Teleradiology Program [phone] (For Medical Practitioner Use Only) Attention Patients / Veterans: If you have questions or concerns about these test results, please contact your ordering provider or primary care team. Primary Diagnostic Code: NO ALERT REQUIRED Primary Interpreting Staff: RADIOLOGY,OUTSIDE SERVICE, Staff Physician / RADIOLOGY,OUTSIDE SERVICE [facility] Encounter Notes: All associated encounter notes This section contains the clinical notes associated to the Encounter. Date/Time Encounter Note(s) Provider Source Jun 24, 2023 02:18 PM PHYSICAL MEDICINE REHAB PHYSICIAN NOTE: LOCAL TITLE: PM&R FOLLOW-UP STANDARD TITLE: PHYSICAL MEDICINE REHAB PHYSICIAN NOTE DATE OF NOTE: JUN 24, 2023@14:18 ENTRY DATE: JUN 24, 2023@14:18:30 AUTHOR: JAM MCFADDEN COSIGNER: URGENCY: STATUS: COMPLETED [facility] (VVC) Standard Documentation [facility] Clinician Resources Only: E911 (Emergency Call Relay Center): [phone] National Veterans Crisis Line - 988 then press #1. CW Suicide Coordinator [phone], Ext. [phone]; Back-up Ext. [phone] EDWARD Hoffman, Valente VILLARREAL [phone] Introduction: Visit is being conducted by [employer]. Kennard identified with 2 identifiers: [X] Full Name [X] Date of [ ] VA ID Card Emergency Plan: Kennard confirmed and/or provided the following information in case of emergency or technology failure. PATIENT PHONE - PHONE NUMBER [CELLULAR] - NONE FOUND Is patient phone number correct, if not, enter below: 's phone number: LUPILLO HNOG [address], [place], [address] Kennard's present location and address for appointment: At [place] 's emergency contact name and phone number: on file reported that location is private and safe: Yes Informed Consent: informed of the risks and benefits of Telehealth video care. Kennard has the right to refuse video services. If refuses video visit, a [id number] visit will be scheduled. Kennard verbalized consent for this video visit: Yes [...] discussed treatment options including use of off skip loader braces. He has bilateral medial compartment arthritis by x-ray which is fairly severe. He does use his neoprene brace which he finds to be helpful. Assessment and plan: Bilateral osteoarthritis of the knees. Will refer to physical therapy for strengthening of muscles around the pelvis as well as anterior tibialis. Optimize function about the ankles. Off skip loader braces to be provided by physical [...] of active outpatient prescriptions dispensed from this [place] (local) and dispensed from another VA or [...] Remote Allergy/ADR Data available for this patient [place] [facility] [place] [facility] No Known Allergies [...] the patient into personal health records (i.e. [employer]) are NOT included in this list. Non-VA medications documented outside this [place], remote inpatient orders (regardless of status) and remote clinic medications are NOT included in this list. The patient and provider must always discuss medications the patient is taking, regardless of where the medication was dispensed or obtained. OUTPT ALBUTEROL 90MCG (CFC-F) 200D ORAL INHL (Status = Active) INHALE 1 PUFF BY MOUTH ONCE DAILY NEEDED FOR BRONCHOSPASM Rx# [id number] Last Released: 06/10/23 Qty/Days Supply: 04/05 Rx Expiration Date: 06/10/24 Refills Remainin Indication: FOR BRONCHOSPASM OUTPT AMLODIPINE BESYLATE 10MG TAB (Status = Discontinued) TAKE ONE TABLET BY MOUTH ONCE DAILY FOR BLOOD PRESSURE/HEART, DO NOT TAKE WITH [employer] JUICE Rx# [id number] Last Released: 12/14/22 Qty/Days Supply: Rx Expiration Date: 12/15/23 Refills Remainin OUTPT AMLODIPINE BESYLATE 10MG TAB (Status = Active) TAKE ONE TABLET BY MOUTH ONCE DAILY FOR BLOOD PRESSURE/HEART, DO NOT TAKE WITH GRAPEFRUIT JUICE Rx# [id number] Last Released: 04/04/23 Qty/Days Supply: Rx Expiration Date: 04/04/24 Refills Remainin OUTPT DICLOFENAC NA 1% TOP GEL (Status = ) APPLY 4 GRAMS TOPICALLY FOUR TIMES A DAY FOR OSTEOARTHRITIS - USE DOSING CARD PROVIDED IN BOX Rx# [id number] Last Released: 10/13/22 Qty/Days Supply: Rx Expiration Date: 05/15/23 Refills Remainin Indication: FOR JOINT PAIN OUTPT HYALURONATE NA (DUROLANE)20MG/ML SYR 3ML (Status = Active) INJECT 60MG INTRA-ARTICULAR ONE TIME OSTEOARTHRITIS OF THE KNEE Rx# [id number] Last Released: 05/04/23 Qty/Days Supply: Rx Expiration Date: 04/01/24 Refills Remainin Indication: OSTEOARTHRITIS OF THE KNEE OUTPT HYDROCHLOROTHIAZIDE 25MG TAB (Status = Discontinued) TAKE ONE-HALF TABLET BY MOUTH ONCE DAILY Rx# [id number] Last Released: 12/14/22 Qty/Days Supply: Rx Expiration Date: 12/15/23 Refills Remainin Indication: FOR HIGH BLOOD PRESSURE OUTPT HYDROCHLOROTHIAZIDE 25MG TAB (Status = Active) TAKE ONE-HALF TABLET BY MOUTH ONCE DAILY Rx# [id number] Last Released: 04/04/23 Qty/Days Supply: Rx Expiration Date: 04/04/24 Refills Remainin Indication: FOR HIGH BLOOD PRESSURE OUTPT LORATADINE 10MG TAB (Status = Active) TAKE ONE TABLET BY MOUTH ONCE DAILY FOR ALLERGY Rx# [id number] Last Released: 06/10/23 Qty/Days Supply: Rx Expiration Date: 06/10/24 Refills Remainin Indication: FOR ALLERGY OUTPT LOSARTAN 25MG TAB (Status = Discontinued) TAKE ONE TABLET BY MOUTH ONCE DAILY FOR BLOOD PRESSURE/HEART Rx# [id number] Last Released: 05/12/23 Qty/Days Supply: Rx Expiration Date: 04/04/24 Refills Remainin Indication: FOR HIGH BLOOD PRESSURE OUTPT LOSARTAN 25MG TAB (Status = Discontinued) TAKE ONE TABLET BY MOUTH ONCE DAILY FOR BLOOD PRESSURE/HEART Rx# [id number] Last Released: 05/31/23 Qty/Days Supply: Rx Expiration Date: 08/22/23 Refills Remainin Indication: FOR HIGH BLOOD PRESSURE OUTPT LOSARTAN 25MG TAB (Status = Active/Suspended) TAKE ONE TABLET BY MOUTH ONCE DAILY FOR BLOOD PRESSURE/HEART Rx# [id number] Last Released: QtDays Supply: Rx Expiration Date: 09/08/23 Refills Remainin Indication: FOR HIGH BLOOD PRESSURE SUPPLIES PHARMACY TERMS AND POSSIBLE PATIENT ACTIONS INPT = [place] inpatient order IV = VA intravenous medication OUTPT = [place] outpatient prescription PHARMACY POSSIBLE PATIENT TERMS EXPLANATION ACTIONS -------- --- ACTIVE A prescription that can be If you have refills, filled at the local [place] pharmacy. you may request a refill of this prescription from your VA pharmacy. CLINIC A medication you received during If you have questions a visit to a [place] clinic or about this medication emergency department. contact your [place] healthcare team. DISCONTINUED A prescription your provider has Contact your [place] stopped. It is no longer healthcare team if you available to be sent to you or need more of this picked up at the [place] pharmacy medication. window. A prescription which is [...] the VA. Or, it may be an bunk-oge-kkmngck (OTC), herbal, dietary supplements or sample medication. [...] An active prescription that is Contact your [place] not scheduled to be filled yet. pharmacy if you need You should receive it before this medication now. you run out. ======== /es/ JAM MCFADDEN [facility] Signed: 06/24/2023 14:37 JAM MCFADDEN [facility]
--- OUTSIDE RECORDS SUMMARY | 2024-03-02 08:59 | XMS_ITS | Encounter Summary ---
Author Name Department of [place] Organization [place] Address [address] [place] [address] Care Team Providers Care Ash Handler Name Role Phone BOY DELONG Primary Care [...] PRESCRIPT ION HEALT H NEW ENGL [facility] Mar 07, 2020 [facility] [id number] MARGARETH HONG RRYL PATIENT Selected Encounter This section includes the information on record at [place] for the Encounter. Date/Time Encounter Type Encounter Description Reason Pro vider Source Sep 02, 2023 08:57 AM Outpatient Encounter OPTOMETRY IHE Encounter Template Text not used by [place] Plan of Treatment: Future Appointments (+ 6 months) and Future Tests (+/- 45 days) The Plan of Treatment section includes future care activities for the patient from all [place] treatmentfacilities. This section includes future appointments and future orders which are active, pending or scheduled. Future Appointments This section includes appointments that were scheduled to occur 6 months from the date of the Encounter, up to a maximum of 20 appointments. The data comes from all [place] treatment facilities. Appointment Date/Time Appointment Type Appointme nt Facility Name Sep 09, 2023 09:30 AM AMBULATORY - PSYCHIATRY [facility] [place] [facility] Oct 14, 2023 09:30 AM AMBULATORY - PSYCHIATRY [facility] [place] [facility] Oct 28, 2023 10:00 AM AMBULATORY - PSYCHIATRY [facility] [place] [facility] Nov 11, 2023 11:00 AM AMBULATORY - PSYCHIATRY [facility] [place] [facility] Nov 14, 2023 03:00 PM AMBULATORY - MEDICINE [facility] [place] [facility] Nov 17, 2023 08:00 AM AMBULATORY - MEDICINE [facility] [place] [facility] Jan 06, 2024 10:00 AM AMBULATORY - MEDICINE [facility] Jan 10, 2024 11:15 AM AMBULATORY - NONE [facility] [place] [facility] Jan 10, 2024 11:30 AM AMBULATORY - NONE [facility] [place] [facility] Jan 13, 2024 10:00 AM AMBULATORY - PSYCHIATRY [facility] [place] [facility] Jan 13, 2024 01:00 PM AMBULATORY - MEDICINE [facility] [place] [facility] Feb 03, 2024 03:30 PM AMBULATORY - MEDICINE [facility] Mar 01, 2024 11:00 AM AMBULATORY - MEDICINE [facility] [place] [facility] Encounter Notes: All associated encounter [...] Letter mailedDisposition onSep 3rd attempt: 4th attempt: /barbara DEL CASTILLO [employer] Signed: 09/02/2023 08:58 09/20/2023 ADDENDUM STATUS: COMPLETED RTC pid 09/02/2023 dispositioned due to veterans failure to respond to all contact efforts per department standards. /barbara DEL CASTILLO [employer] Signed: 09/20/2023 09:33 REMEDIOS DEL CASTILLO [place] [facility]
--- OUTSIDE RECORDS SUMMARY | 2024-03-02 08:59 | XMS_ITS | Encounter Summary ---
Author Name [facility] [place] Organization [place] Address [address] [place] [address] Care Team Providers Care Tilt Tray Driver Name Role Phone BOY DELONG Primary [...] RX PRESCRIPT ION HEALT H [place] [facility] Mar 07, 2020 [facility] [id number] MARGARETH HONG RRYL PATIENT Selected Encounter [...] activities for the patient from all [place] treatmentfacilities. This section includes future appointments and [...] 19, 2023 10:00 [facility] Sep 09, 2023 09:30 AM AMBULATORY - [...] [facility] [place] [facility] Nov 17, 2023 08:00 AM AMBULATORY - MEDICINE [facility] [place] [facility] Jan 06, 2024 10:00 AM AMBULATORY - MEDICINE [place] [place] Jan 10, 2024 11:15 AM AMBULATORY - NONE [facility] [place] [facility] Jan 10, 2024 11:30 AM AMBULATORY - NONE [facility] [place] [facility] Jan 13, 2024 10:00 AM AMBULATORY - PSYCHIATRY [facility] [place] [facility] Jan 13, 2024 01:00 PM AMBULATORY - MEDICINE [facility] [place] [facility] Feb 03, 2024 03:30 PM [...] Acknowledged By: 08/15/2023 15:17 /ivone/ JAM MCFADDEN [facility] === --- Original Document --- 08/12/23 ADMINISTRATIVE NOTE: leaving message on [facility] Call Center voicemail wanting to: [x] Speak to provider (name): Jeaneth wanting to know if he can get new injections for (B) knee pain [place] last Med Rehab visit by [facility] Jun [] Schedule a new [...] JAM MCFADDEN RACHAEL M [facility] Aug 12, 2023 05:21 PM ADMINISTRATIVE NOTE: LOCAL TITLE: ADMINISTRATIVE NOTE STANDARD TITLE: ADMINISTRATIVE NOTE DATE OF NOTE: AUG 12, 2023@17:21 ENTRY DATE: AUG 12, 2023@17:21:15 AUTHOR: DEMETRI WARE EXP COSIGNER: URGENCY: STATUS: COMPLETED ADMINISTRATIVE NOTE Has ADDENDA leaving message on [facility] Call Center voicemail wanting to: [x] Speak to provider (name): Jeaneth wanting to know if he can get new injections for (B) knee pain last Med Rehab visit by [facility] Jun [] Schedule a new [...] Grewal RN Med Rehab 08/15/2023 15:18 /barbara ESPINAL,[facility] 08/15/2023 ADDENDUM STATUS: COMPLETED It appears vet hasn't gotten braces yet. Had Durolane 05/22. Do you want him to come in for visit, or vvc? /barbara Grewal RN Med Rehab Signed: 08/15/2023 07:54 Receipt Acknowledged By: 08/15/2023 15:17 /barbara ESPINAL,[facility] 08/15/2023 ADDENDUM STATUS: COMPLETED VVC is adequate. /barbara ESPINAL,[facility] Signed: 08/15/2023 15:19 DEMETRI WARE [facility] [place] [facility]
--- OUTSIDE RECORDS SUMMARY | 2024-03-02 08:59 | XMS_ITS | Encounter Summary ---
Author Name Department of Vetera Affairs ([place]) Organization Department of Vetera Affairs ([place]) Address [address] [place] [address] Care Team Providers Care Amortization Schedule Clerk Name Role Phone BOY DELONG Primary Care [...] [facility] Mar 07, 2020 [facility] [id number] MARGARETH HONG RRYL PATIENT Selected Encounter This section includes the information on record at MD for the Encounter. Date/Time Encounter Type Encounter Description Reason Provider Source Aug 19, 2023 10:00 AM SELF CARE MNGMENT TRAINING PHYSICAL THERAPY ICD-10-CM M17.0 Bilateral primary osteoarthritis of knee LUISANA CHINO IHRosibel Encounter Template Text not used by MD Assessments - Encounter Diagnoses This section includes the primary and secondary diagnoses documented for the Encounter. Date/Time Primary/Secondary Diagnosis Diagnosis Name Provider Source Aug 19, 2023 10:35 AM PRIMARY Bilateral primary osteoarthritis of knee FLETCHRE CHINO Plan of Treatment: Future Appointments (+ [...] 20 appointments. The data comes from all MD treatment facilities. Appointment Date/Time Appointment Type Appointme nt Facility Name Sep 09, 2023 09:30 AM AMBULATORY - PS[facility]CHIATRY [facility] [place] [facility] Oct 14, 2023 09:30 AM AMBULATORY - PSYCHIATRY [facility] [place] [facility] Oct 28, 2023 10:00 AM AMBULATORY - PSYCHIATRY [facility] [place] [facility] Nov 11, 2023 11:00 AM AMBULATORY - PSYCHIATRY [facility] [place] [facility] Nov 14, 2023 03:00 PM AMBULATORY - MEDICINE [place] [facility] [place] [facility] Nov 17, 2023 08:00 AM AMBULATORY - MEDICINE [place] [facility] [place] [facility] Jan 06, 2024 10:00 AM AMBULATORY - MEDICINE [facility] Jan 10, 2024 11:15 AM AMBULATORY - NONE [facility] [place] [facility] Jan 10, 2024 11:30 AM AMBULATORY - NONE [facility] [place] [facility] Jan 13, 2024 10:00 AM AMBULATORY - PSYCHIATRY [facility] [place] [facility] Jan 13, 2024 01:00 PM AMBULATORY - MEDICINE [place] [facility] [place] [facility] Feb 03, 2024 03:30 PM AMBULATORY - MEDICINE [facility] Social History: Smoking Status (Most current) and Tobacco Use (All prior to encounter date) This section includes the most current, and the historical, smoking and tobacco- related health factors from the MD facility where the Encounter took place. Current Smoking Status This section includes the most current smoking, or tobacco-related health factor, from the MD facility where the Encounter took place. Date/Time Current Smoking Status Comment Matthew dongy Jun 10, 2023 11:30 AM MD-TOBACCO NEVER USED [facility] Tobacco Use History This section includes a history of the smoking, or tobacco-related health factors, that were collected on or before the date of the Encounter. The data comes from the MD facility where the Encounter took place. Date/Time Smoking Status/Tobacco Use Comment F acility May 14, 2022 11:30 AM VA-TOBACCO NEVER USED [facility] Mar 27, 2021 11:00 AM VA-TOBACCO NEVER USED [facility] Encounter Notes: All associated encounter notes This [...] [] skin intact pre/post modality Access Code: [email or web address] URL: [email or web address] Date: 08/03/2023 Prepared by: Fletcher Chino Exercises [...] PHYSICAL THERAPIST Signed: 08/19/2023 10:35 FLETCHER CHINO [facility]
--- OUTSIDE RECORDS SUMMARY | 2024-03-02 08:59 | XMS_ITS | Encounter Summary ---
Author Name Department [place] Organization [place] Address [address] [place] [address] Care Team Providers Care An/Ssn 2 4 Operator Name Role Phone BOY DELONG Primary [...] RX PRESCRIPT ION HEALT H NEW ENGL [facility] Mar 07, 2020 [facility] [id number] MARGARETH HONG RRYL PATIENT Selected Encounter This section includes the information on record at [place] for the Encounter. Date/Time Encounter Type Encounter Description Reason Pro vider Source Sep 02, 2023 08:58 AM Outpatient Encounter OPTOMETRY IHE Encounter Template Text not used by [place] Plan of Treatment: Future Appointments (+ 6 months) and Future Tests (+/- 45 days) The Plan of Treatment section includes future care activities for the patient from all [place] treatmentfacilities. This section includes future appointments and [...] AMBULATORY - PS[facility]CHIATRY [facility] [place] [facility] Oct 14, 2023 09:30 AM AMBULATORY - PSYCHIATRY [facility] [place] [facility] Oct 28, 2023 10:00 AM AMBULATORY - PSYCHIATRY [facility] [place] [facility] Nov 11, 2023 11:00 AM AMBULATORY - PSYCHIATRY [facility] [place] [facility] Nov 14, 2023 03:00 PM AMBULATORY - MEDICINE [facility] [place] [facility] Nov 17, 2023 08:00 AM AMBULATORY - MEDICINE [facility] [place] [facility] Jan 06, 2024 10:00 AM AM[facility]ULATORY [facility]INE [facility] Jan 10, 2024 11:15 AM AMBULATORY - NONE [facility] [place] [facility] Jan 10, 2024 11:30 AM AMBULATORY - NONE [facility] [place] [facility] Jan 13, 2024 10:00 AM AMBULATORY - PSYCHIATRY [facility] [place] [facility] Jan 13, 2024 01:00 PM AMBULATORY - MEDICINE [facility] [place] [facility] Feb 03, 2024 03:30 PM [facility] Mar 01, 2024 11:00 AM AMBULATORY - MEDICINE [place] [facility] [place] [facility] Encounter Notes: All associated encounter notes This section contains the clinical notes associated to the Encounter. Date/Time Encounter Note(s) Provider Source Sep 02, 2023 08:58 AM LETTERS: LOCAL TITLE: PATIENT LETTER (B) STANDARD TITLE: LETTERS DATE OF NOTE: SEP 02, 2023@08:58 ENTRY DATE: SEP 02, 2023@08:58:29 AUTHOR: REMEDIOS DEL CASTILLO EXP COSIGNER: URGENCY: STATUS: COMPLETED [facility] Toll Free Number , ext [phone] SEP 02, 2023 LUPILLO HONG [address] [place] [place] [address] Dear LUPILLO HONG Thank you for choosing the Department of [facility] ([place]) [facility] as your primary choice for health care. As a partner in your health care, we are contacting you in writing since we have been unsuccessful in our attempts to reach you to date. We want to assure you we are doing everything possible to schedule Veterans for their [place] medical care appointments. Our records indicate you are due for an appointment in OPTOMETRY Thank you for choosing [facility] ([place]) [facility] as your primary choice for health care. As a partner in your health care, we are contacting you in writing since we have been unsuccessful in our attempts to reach you to date. We want to assure you we are doing everything possible to schedule Veterans for their [place] medical care appointments. If you would like to be seen, please contact [facility] at [phone] Ext. [phone] to schedule an appointment. Thank you for your service to our nation, and we look forward to hearing from you soon. Sincerely, [facility] [address] [facility] [address] [place] [address] [place] [address] ext. [phone] [facility] [address] [facility] [address] [place] [address] [place] [address] [phone] [facility] [address] [address] [place] [address] ext. [phone] [facility] [address] [place] [address] ext. [phone] [facility]EDIOS DEL [facility]STILL[facility] [place] [facility]
--- OUTSIDE RECORDS SUMMARY | 2024-03-02 09:00 | XMS_ITS | Encounter Summary ---
Author Name Department of Vetera Affairs ([place]) Organization Department of [place] ([place] Address [address] [place] [address] Care Team Providers Care Garment Mender Name Role Phone BOY DELONG Primary Care [...] PRESCRIPT ION HEALT H NEW ENGL [facility] Mar 07, 2020 [facility] [id number] 0701 MARGARETH HONG RRYL PATIENT Selected Encounter This section includes the information on record at [place] for the Encounter. Date/Time Encounter Type Encounter Description Reason Pro vider Source Oct 14, 2023 01:17 PM Outpatient Encounter PM&RS PHYSICIAN IHE Encounter Template Text not used by VA Plan of Treatment: Future Appointments (+ 6 months) and Future Tests (+/- 45 days) The Plan of Treatment section includes future care activities for the patient from all [place] treatmentfacilities. This section includes future appointments and future orders which are active, pending or scheduled. Future Appointments This section includes appointments that were scheduled to occur 6 months from the date of the Encounter, up to a maximum of 20 appointments. The data comes from all [place] treatment facilities. Appointment Date/Time Appointment Type Appointme nt Facility Name Oct 28, 2023 10:00 AM AMBULATORY - PSYCHIATRY [facility] [place] [facility] Nov 11, 2023 11:00 AM AMBULATORY - PSYCHIATRY [facility] [place] [facility] Nov 14, 2023 03:00 PM AMBULATORY - MEDICINE [facility] [place] [facility] Nov 17, 2023 08:00 AM AMBULATORY - MEDICINE [facility] [place] [facility] Jan 06, 2024 10:00 AM AMBULATORY - MEDICINE [facility] Jan 10, 2024 11:15 AM AMBULATORY - NONE [facility] [place] [facility] Jan 10, 2024 11:30 AM AMBULATORY - NONE [facility] [place] [facility] Jan 13, 2024 10:00 AM AMBULATORY - PSYCHIATRY [facility] [place] [facility] Jan 13, 2024 01:00 PM AMBULATORY - MEDICINE [place] [facility] [place] [facility] Feb 03, 2024 03:30 PM AMBULATORY - MEDICINE [facility] Mar 01, 2024 11:00 AM AMBULATORY - MEDICINE [place] [facility] [place] [facility] Apr 06, 2024 10:00 AM AMBULATORY - PSYCHIATRY [facility] [place] [facility] Encounter Notes: All associated encounter notes This section contains the clinical notes associated to the Encounter. Date/Time Encounter Note(s) Provider Source Oct 14, 2023 01:17 PM TELEPHONE ENCOUNTE R NOTE: LOCAL TITLE: TELEPHONE NOTE/SPECIALTY CLINIC STANDARD TITLE: TELEPHONE ENCOUNTER NOTE DATE OF NOTE: OCT 14, 2023@13:17 ENTRY DATE: OCT 14, 2023@13:17:42 AUTHOR: LYNDA REILLY EXP COSIGNER: URGENCY: STATUS: COMPLETED TELEPHONE NOTE/SPECIALTY CLINIC Has ADDENDA twisted his left knee a few days ago, swollen pretty bad and pretty stiff. He has not seen primary care, transferring to triage. [place] would still appreciate a call from Sotero Eric. PH: [phone] /ivone/ LYNDA REILLY LEAD PRICING ANALYST Signed: 10/14/2023 13:20 Receipt Acknowledged By: 10/17/2023 09:33 /ivone/ Mya Grewal RN Med Rehab 10/19/2023 09:00 /ivone/ SOTERO ERIC PAC,[facility] 10/17/2023 ADDENDUM STATUS: COMPLETED Left message /es/ Mya Grewal RN Med Rehab Signed: 10/17/2023 09:33 LYNDA REILLY [facility]
--- OUTSIDE RECORDS SUMMARY | 2024-03-02 09:00 | XMS_ITS ---
Author Name [place] Address [address] [place] [address] Care Team Providers Care Striker Out Name Role Phone BOY DELONG Primary Care [...] RX PRESCRIPT ION HEALT H NEW ENGL [facility] Mar 07, 2020 [facility] [id number] MARGARETH HONG RRYL PATIENT Selected Encounter [...] 20 appointments. The data comes from all [place] treatment facilities. Appointment Date/Time Appointment Type Appointme nt Facility Name Oct 28, 2023 10:00 AM AMBULATORY - PSYCHIATRY [facility] [place] [facility] Nov 11, 2023 11:00 AM AMBULATORY - PSYCHIATRY [facility] [place] [facility] Nov 14, 2023 03:00 PM AMBULATORY - MEDICINE [facility] [place] [facility] Nov 17, 2023 08:00 AM AMBULATORY - MEDICINE [facility] [place] [facility] Jan 06, 2024 10:00 AM AMBULATORY - MEDICINE [facility] Jan 10, 2024 11:15 AM AMBULATORY - NONE [facility] [place] [facility] Jan 10, 2024 11:30 AM AMBULATORY - NONE [facility] [place] [facility] Jan 13, 2024 10:00 AM AMBULATORY - PSYCHIATRY [facility] [place] [facility] Jan 13, 2024 01:00 PM AMBULATORY - MEDICINE [facility] [place] [facility] Feb 03, 2024 03:30 PM AMBULATORY - MEDICINE [facility] Mar 01, 2024 11:00 AM AMBULATORY - MEDICINE [place] [facility] [place] [facility] Apr 06, 2024 10:00 AM AMBULATORY - PSYCHIATRY [facility] [place] [facility] Lab Results: +/- 30 days of [...] Range Comment Nov 17, 2023 08:30 AM [place] [facility] [place] [facility] CULTURE,BODY FLUID PANEL(C.D.H) Specimen Type: SYNOVIAL FLUID Comment: Refer to CPRS: [place] Imag. Display for Lab Results Ordering Provider: REESE MCFADDEN Report Released Date/Time: Nov 17, 2023 09:15 AM Reporting Lab: [place] [facility] [place] [facility] [address] [facility] [address] Performing Lab: [facility] [address] [facility] [address] GRAM STAIN(cdh) comment ANAEROBIC CULTURE(cdh) comment CULTURE,BODY FLUID(cdh) comment Nov 17, 2023 08:30 AM [facility] [place] [facility] GLUCOSE, SYNOVIAL (q) Specimen Type: SYNOVIAL FLUID Comment: Synovial fluid glucose values are equivalent to plasma values if obtained from a fasting patient. The difference between the plasma glucose and synovial fluid glucose value should be <10 mg/dL. Test Performed by [facility], [facility], [address] [place] [address] Rajesh Doss M.D., Ph.D., Director of Laboratories , [place] [id number] TEST PERFORMED AT: , Ordering Provider: REESE MCFADDEN Report Released Date/Time: Nov 17, 2023 09:15 AM Reporting Lab: [address] [address] Performing Lab: [facility] [address] [address] GLUCOSE, SYNOVIAL (q) 145 mg/dL Nov 17, 2023 08:30 AM [facility] SYNOVIAL FLUID CRYSTALS PANEL Specimen Type: SYNOVIAL FLUID No comment entered. Ordering Provider: REESE MCFADDEN Report Released Date/Time: Nov 17, 2023 09:24 AM Reporting Lab: [facility] [address] [facility] [address] Performing Lab: [facility] [address] [facility] [address] CRYSTALS,BF Positive Negative MSU CRYSTALS,BF Present Negative MSU CRYSTAL EXTRA,BF Present Negative MSU CRYSTAL INTRA,BF Present Negative Nov 17, 2023 08:30 AM [facility] CELL COUNT (SYNOVIAL FLUID) Specimen Type: SYNOVIAL FLUID Comment: *CRYSTALS Not Performed: Nov 17, 2023@09:25 by [id number] *SALES STOCK ASSOCIATE Reason: see wrled 9028 for results Ordering Provider: REESE MCFADDEN Report Released Date/Time: Nov 17, 2023 09:15 AM Reporting Lab: [facility] [address] [facility] [address] Performing Lab: [facility] [address] WBC 350 RBC <3000 COLOR Y VOLUME [...] SONU ALTAMIRANO EXP COSIGNER: URGENCY: STATUS: COMPLETED [place] requesting a new CC Provider for CC-Bh Psychotherapy, please enter a new referral for the following CC Provider which agrees to suggested Provider. [facility] Cherry Stern [address] [place] [id number] Ind /ivone/ SONU ALTAMIRANO Signed: 10/24/2023 13:30 Receipt Acknowledged By: 10/24/2023 15:18 /ivone/ LJ ASHLEY PSYD Clinical Psychologist SONU ALTAMIRANO CN[facility]
--- OUTSIDE RECORDS SUMMARY | 2024-03-02 09:00 | XMS_ITS | Encounter Summary ---
Author Name [place] Organization [place] Address [address] [place] [address] Care Team Providers Care Rotary Bar Operator Name Role Phone BOY DELONG Primary [...] ENGL [facility] Mar 07, 2020 [facility] [phone] MARGARETH HONG RRYL PATIENT Selected Encounter [...] 10:00 AM AMBULATORY - REHAB [facility]IC[place] Sep 09, 2023 09:30 AM AMBULATORY - PSYCHIATRY [facility] [place] [facility] Oct 14, 2023 09:30 AM AMBULATORY - PSYCHIATRY [facility] [facility] Oct 28, 2023 10:00 AM AMBULATORY - PSYCHIATRY [facility] [facility] Nov 11, 2023 11:00 AM AMBULATORY - PSYCHIATRY [facility] [facility] Nov 14, 2023 03:00 PM AMBULATORY - MEDICINE [place] [facility] [place] [facility] Nov 17, 2023 08:00 AM AMBULATORY - MEDICINE [place] [facility] [place] [facility] Jan 06, 2024 10:00 AM AMBULATORY - MEDICINE [place] Jan 10, 2024 11:15 AM AMBULATORY - NONE [place] [facility] [place] [facility] Jan 10, 2024 11:30 AM AMBULATORY - NONE [place] [facility] [facility] Jan 13, 2024 10:00 AM AMBULATORY - PSYCHIATRY [facility] [facility] Jan 13, 2024 01:00 PM AMBULATORY - MEDICINE [place] [facility] [place] [facility] Feb 03, 2024 03:30 PM [...] REQUIRED Electronically Filed: 10/15/2023 by: CHIOMA LOWERY [place] [facility] [facility]
--- OUTSIDE RECORDS SUMMARY | 2024-03-02 09:00 | XMS_ITS ---
Author Name [place] Address [address] [place] [address] Care Team Providers Care Stage Driver Name Role Phone BOY DELONG Primary [...] RX PRESCRIPT ION HEALT H NEW ENGL [facility] Mar 07, 2020 [facility] [id number] MARGARETH HONG RRYL PATIENT Selected Encounter This section includes the information on record at [place] for the Encounter. Date/Time Encounter Type Encounter Description Reason Pro vider Source Oct 21, 2023 04:04 PM Outpatient Encounter [facility] IHE Encounter Template Text not used [...] AMBULATORY - PSYCHIATRY [facility] [place] [facility] Nov 11, 2023 11:00 AM AMBULATORY - PSYCHIATRY [facility] [facility] Nov 14, 2023 03:00 PM AMBULATORY - MEDICINE [facility] [place] [facility] Nov 17, 2023 08:00 AM AMBULATORY - MEDICINE [facility] [place] [facility] Jan 06, 2024 10:00 AM AMBULATORY - MEDICINE [facility] Jan 10, 2024 11:15 AM AMBULATORY - NONE [place] [facility] [place] [facility] Jan 10, 2024 11:30 AM AMBULATORY - NONE [facility] [place] [facility] Jan 13, 2024 10:00 AM AMBULATORY - PSYCHIATRY [facility] [facility] Jan 13, 2024 01:00 PM AMBULATORY - MEDICINE [facility] [place] [facility] Feb 03, 2024 03:30 PM AMBULATORY - MEDICINE [facility] Mar 01, 2024 11:00 AM AMBULATORY - MEDICINE [facility] [place] [facility] Apr 06, 2024 10:00 AM AMBULATORY - PSYCHIATRY [facility] [facility] Lab [...] Range Comment Nov 17, 2023 08:30 AM [place] [facility] [place] [facility] CULTURE,BODY FLUID PANEL(C.D.H) Specimen Type: SYNOVIAL FLUID Comment: Refer to CPRS: [place] Imag. Display for Lab Results Ordering Provider: REESE MCFADDEN Report Released Date/Time: Nov 17, 2023 09:15 AM Reporting Lab: [place] [facility] [place] [facility] [address] [facility] [address] Performing Lab: [facility] [address] [facility] [address] GRAM STAIN(cdh) comment ANAEROBIC CULTURE(cdh) comment CULTURE,BODY FLUID(cdh) comment Nov 17, 2023 08:30 AM [facility] GLUCOSE, SYNOVIAL (q) Specimen Type: SYNOVIAL FLUID Comment: Synovial fluid glucose values are equivalent to plasma values if obtained from a fasting patient. The difference between the plasma glucose and synovial fluid glucose value should be <10 mg/dL. Test Performed by [facility], [facility], [address] [place] [address] Rajesh Doss M.D., Ph.D., Director of Laboratories , [place] [id number] TEST PERFORMED AT: , Ordering Provider: REESE MCFADDEN Report Released Date/Time: Nov 17, 2023 09:15 AM Reporting Lab: [address] [address] Performing Lab: [facility] [address] [address] GLUCOSE, SYNOVIAL (q) 145 mg/dL Nov 17, 2023 08:30 AM [facility] SYNOVIAL FLUID CRYSTALS PANEL Specimen Type: SYNOVIAL FLUID No comment entered. Ordering Provider: REESE MCFADDEN Report Released Date/Time: Nov 17, 2023 09:24 AM Reporting Lab: [facility] [address] [facility] [address] Performing Lab: [facility] [address] [facility] [place] [address] CRYSTALS,BF Positive Negative MSU CRYSTALS,BF Present Negative MSU CRYSTAL EXTRA,BF Present Negative MSU CRYSTAL INTRA,BF Present Negative Nov 17, 2023 08:30 AM [facility] CELL COUNT (SYNOVIAL FLUID) Specimen Type: SYNOVIAL FLUID Comment: *CRYSTALS Not Performed: Nov 17, 2023@09:25 by [id number] *RETAIL DEPARTMENT RESET Reason: see wrled [id number] for results Ordering Provider: REESE MCFADDEN Report Released Date/Time: Nov 17, 2023 09:15 AM Reporting Lab: [address] [address] Performing Lab: [address] [place] [address] WBC 350 RBC <3000 COLOR Y VOLUME [...] URGENCY: STATUS: COMPLETED ADMINISTRATIVE NOTE Has ADDENDA is inquiring whether it would be quicker to be seen by a psychotherapist in the [facility] or at the [facility]...Currently, there is only a [facility] Care consult (dated July 22, 2023), but prefers the soonest available apppointment whether it be in the [facility] or in [place]. [place] can be reached at [phone]...Seed Corn Production Manager also sent a teams message to the Counts Include [address] [facility] and [place] Consult coordinators to advise as well. /ivone/ AMADA JOSUE [employer] CONTROL [employer] WARNING SYSTEMS Signed: 10/21/2023 16:13 Receipt Acknowledged By: 10/24/2023 07:23 /ivone/ NELLI NGUYEN Advanced Photocomposition Keyboard Operator 10/24/2023 08:54 /es/ TIMMY DONAHUE CARE IN THE COMMUNITY RELATIONS 10/24/2023 08:07 /es/ LJ ASHLEY PSYD Clinical Psychologist 10/24/2023 ADDENDUM STATUS: COMPLETED Patient has a community care consult in place. [email or web address] placed comment on consult to call with status of new community care provider. /ivone/ NELLI NGUYEN Advanced Photocomposition Keyboard Operator Signed: 10/24/2023 07:25 AMADA JOSUE
--- OUTSIDE RECORDS SUMMARY | 2024-03-02 09:00 | XMS_ITS ---
Author Name Department [place] Organization [place] Address [address] [place] [address] Care Team Providers Care Pipe Coverer Helper Name Role Phone BOY DELONG Primary [...] [facility] Mar 07, 2020 [facility] [phone] MARGARETH HONG RRYL PATIENT Selected Encounter This section includes the information on record at [place] for the Encounter. Date/Time Encounter Type Encounter Description Reason Pro vider Source Oct 14, 2023 09:30 AM Outpatient Encounter [facility] IHE Encounter Template Text not used [...] PSYCHIATRY [facility] [place] [facility] Nov 11, 2023 11:00 AM AMBULATORY - PSYCHIATRY [facility] [place] [facility] Nov 14, 2023 03:00 PM AMBULATORY - MEDICINE [facility] [place] [facility] Nov 17, 2023 08:00 AM AMBULATORY - MEDICINE [facility] [place] [facility] Jan 06, 2024 10:00 AM AMBULATORY - MEDICINE [facility] Jan 10, 2024 11:15 AM AMBULATORY - NONE [facility] [place] [facility] Jan 10, 2024 11:30 AM AMBULATORY - NONE [facility] [place] [facility] Jan 13, 2024 10:00 AM AMBULATORY - PSYCHIATRY [facility] [place] [facility] Jan 13, 2024 01:00 PM AMBULATORY - MEDICINE [facility] [place] [facility] Feb 03, 2024 03:30 PM AMBULATORY - MEDICINE [facility] Mar 01, 2024 11:00 AM AMBULATORY - MEDICINE [place] [facility] [place] [facility] Apr 06, 2024 10:00 AM AMBULATORY - PSYCHIATRY [facility] [place] [facility] Encounter Notes: All associated encounter notes This section contains the clinical notes associated to the Encounter. Date/Time Encounter Note(s) Provider Source Oct 14, 2023 09:57 AM CLERICAL NOTE: LOCAL TITLE: APPOINTMENT NO SHOW STANDARD TITLE: CLERICAL NOTE DATE OF NOTE: OCT 14, 2023@09:57 ENTRY DATE: OCT 14, 2023@09:57:08 AUTHOR: DIEUDONNE MEEHAN COSIGNER: URGENCY: STATUS: COMPLETED Patient Name: LUPILLO HONG Patient SSN: [id number] Date and time of Appointment No show : 10/14/23 09:30 PATIENT PHONE - PHONE NUMBER [CELLULAR] - NONE FOUND Patient's medical record was reviewed. Follow-up actions were determined and initiated: Please check/complete as applies: [X]Telephoned Directly [ ]Re-scheduled for next available appt [X]Sent a N0-show letter ( must call for appointment) [ ]Other (Emergent/Overbook, etc.): Additional Comments: Vet did not connect to [address] [facility] appt. called, to which pt did not respond. vague VM left to return call at [phone]. no-show letter to be sent for rescheduling purposes. Future Clinic Visits 01/06/2024 10:00 CWM/SO/PACT 3 WH /es/ Dieudonne Meehan PharmD Clinical Pharmacist Practitioner Signed: 10/14/2023 09:57 DIEUDONNE MEEHAN [facility]
--- OUTSIDE RECORDS SUMMARY | 2024-03-02 09:00 | XMS_ITS ---
Author Name Department of Vetera Affairs ([place]) Organization Department of Vetera Affairs [place] Address [address] [place] [address] Care Team Providers Care Scrub Nurse Name Role Phone BOY DELONG Primary [...] PRESCRIPT ION HEALT H NEW ENGL [facility] Mar 07, 2020 [facility] [id number] MARGARETH HONG RRYL PATIENT Selected Encounter This section includes the information on record at [place] for the Encounter. Date/Time Encounter Type Encounter Description Reason Pro vider Source Oct 07, 2023 03:41 PM Outpatient Encounter MENTAL HEALTH [facility] IHE Encounter Template Text not used by MD Plan of Treatment: Future Appointments (+ 6 months) and Future Tests (+/- 45 days) The Plan of Treatment section includes future care activities for the patient from all [place] treatmentfacilities. This section includes future appointments and [...] AMBULATORY - PSYCHIATRY [facility] [place] [facility] Oct 28, 2023 10:00 AM AMBULATORY - PSYCHIATRY [facility] [place] [facility] Nov 11, 2023 11:00 AM AMBULATORY - PSYCHIATRY [facility] [place] [facility] Nov 14, 2023 03:00 PM AMBULATORY - MEDICINE [facility] [place] [facility] Nov 17, 2023 08:00 AM AMBULATORY - MEDICINE [facility] [place] [facility] Jan 06, 2024 10:00 AM AMBULATORY - MEDICINE [facility] Jan 10, 2024 11:15 AM AMBULATORY - NONE [facility] [place] [facility] Jan 10, 2024 11:30 AM AMBULATORY - NONE [facility] [place] [facility] Jan 13, 2024 10:00 AM AMBULATORY - PSYCHIATRY [facility] [place] [facility] Jan 13, 2024 01:00 PM AMBULATORY - MEDICINE [facility] [place] [facility] Feb 03, 2024 03:30 PM AMBULATORY - MEDICINE [facility] Mar 01, 2024 11:00 AM AMBULATORY - MEDICINE [facility] [facility] Apr 06, 2024 10:00 AM AMBULATORY - PSYCHIATRY [facility] [place] [facility] Encounter Notes: All associated encounter [...] with these requests. /ivone/ BALJIT RON ADVANCED FLOOR INSTALLER Signed: 10/07/2023 15:49 10/07/2023 ADDENDUM STATUS: COMPLETED MAXA received information that was relayed to [place] that he could contact community care to be connected with a new therapist, that he can contact [facility] for a status update. [facility] contact information provided to [place]. Also that for the review of comp and pen information, he should contact his [place] provider. This information provided to DAYANARA via teams. /ivone/ BALJIT RON ADVANCED FLOOR INSTALLER Signed: 10/07/2023 16:26 BALJIT RON [place] [facility]
--- OUTSIDE RECORDS SUMMARY | 2024-03-02 09:00 | XMS_ITS | Encounter Summary ---
Author Name Department of [place] Organization Department [place] Address [address] [place] [address] Care Team Providers Care Motor Carrier Inspector Name Role Phone BOY DELONG Primary [...] [facility]ALT [facility] Mar 07, 2020 [facility] [phone] MARGARETH HONG RRYL PATIENT Selected Encounter This section includes the information on record at [place] for the Encounter. Date/Time Encounter Type Encounter Description Reason Provider Source Oct 26, 2023 11:00 AM HC PRO PHONE CALL 5-10 MIN TELEPHONE HCMI ICD-10-CM Z59.811 Housing instability, housed, with risk of homelessness Himanshu CHAO Encounter Template Text not used by [place] Assessments - Encounter Diagnoses This section includes the primary and secondary diagnoses documented for the Encounter. Date/Time Primary/Secondary Diagnosis Diagnosis Name Provider Source Oct 26, 2023 11:00 AM PRIMARY Housing instability, housed, with risk of homelessness [facility] ([id number]) Plan of Treatment: Future Appointments (+ 6 months) and Future Tests (+/- 45 days) The Plan of Treatment section includes future care activities for the patient from all [place] treatmentfacape fear/harnett healthities. This section includes future appointments and future [...] 28, 2023 10:00 AM AMBULATORY - PSYCHIATRY [place] [facility] [place] [facility] Nov 11, 2023 11:00 AM AMBULATORY - PSYCHIATRY [place] [facility] [place] [facility] Nov 14, 2023 03:00 PM AMBULATORY - MEDICINE [place] [facility] [place] [facility] Nov 17, 2023 08:00 AM AMBULATORY - MEDICINE [place] [facility] [place] [facility] Jan 06, 2024 10:00 AM AMBULATORY - MEDICINE [facility] Jan 10, 2024 11:15 AM AMBULATORY - NONE [place] [facility] [place] [facility] Jan 10, 2024 11:30 AM AMBULATORY - NONE [place] [facility] [place] [facility] Jan 13, 2024 10:00 AM AMBULATORY - PSYCHIATRY [place] [facility] [place] [facility] Jan 13, 2024 01:00 PM AMBULATORY - MEDICINE [place] [facility] [place] [facility] Feb 03, 2024 03:30 PM AMBULATORY - MEDICINE [facility] Mar 01, 2024 11:00 AM AMBULATORY - MEDICINE [place] [facility] [place] [facility] Apr 06, 2024 10:00 AM AMBULATORY - PSYCHIATRY [place] [facility] [place] [facility] Lab Results: +/- 30 days of the encounter This section includes the Chemistry and Hematology Lab Results on record with [place] for the patient. Radiology Reports and Pathology Reports are provided separately, in subsequent sections. Lab Results This section contains the Chemistry/Hematology Results that were resulted 30 days before or 30 daysafter the date of the Encounter. Date/Time Source Result Type Result - Unit Interpretation Reference Range Comment Nov 17, 2023 08:30 AM [place] [facility] [facility] CULTURE,BODY FLUID PANEL(C.D.H) Specimen Type: SYNOVIAL FLUID Comment: Refer to CPRS: [place] Imag. Display for Lab Results Ordering Provider: REESE MCFADDEN Report Released Date/Time: Nov 17, 2023 09:15 AM Reporting Lab: [facility] [place] [address] [facility] [id number] Performing Lab: [facility] [place] [address] [facility] [address] GRAM STAIN(cdh) comment ANAEROBIC CULTURE(cdh) comment CULTURE,BODY FLUID(cdh) comment Nov 17, 2023 08:30 AM [facility] [place] GLUCOSE, SYNOVIAL (q) Specimen Type: SYNOVIAL FLUID Comment: Synovial fluid glucose values are equivalent to plasma values if obtained from a fasting patient. The difference between the plasma glucose and synovial fluid glucose value should be <10 mg/dL. Test Performed by NurigeneKeerthi, fav.or.it [facility], [address] [place] [address] Rajesh Doss M.D., Ph.D., Director of Laboratories , [facility] [id number] TEST PERFORMED AT: , Ordering Provider: REESE MCFADDEN Report Released Date/Time: Nov 17, 2023 09:15 AM Reporting Lab: [facility] [place] [address] [facility] [address] Performing Lab: [facility] [place] [address] [address] GLUCOSE, SYNOVIAL (q) 145 mg/dL Nov 17, 2023 08:30 AM [facility] [place] SYNOVIAL FLUID CRYSTALS PANEL Specimen Type: SYNOVIAL FLUID No comment entered. Ordering Provider: REESE MCFADDEN Report Released Date/Time: Nov 17, 2023 09:24 AM Reporting Lab: [facility] [place] [address] [facility] [address] Performing Lab: [facility] [place] [address] [facility] [address] CRYSTALS,BF Positive Negative MSU CRYSTALS,BF Present Negative MSU CRYSTAL EXTRA,BF Present Negative MSU CRYSTAL INTRA,BF Present Negative Nov 17, 2023 08:30 AM [facility] [place] CELL COUNT (SYNOVIAL FLUID) Specimen Type: SYNOVIAL FLUID Comment: *CRYSTALS Not Performed: Nov 17, 2023@09:25 by [id number] *MACHINE SORTER Reason: see wrled [id number] for results Ordering Provider: REESE MCFADDEN Report Released Date/Time: Nov 17, 2023 09:15 AM Reporting Lab: [facility] [address] [facility] [address] Performing Lab: [facility] [place] [address] [facility] [address] WBC 350 RBC <3000 COLOR Y VOLUME [...] SHRUTHI CHAO EXP COSIGNER: URGENCY: STATUS: COMPLETED Cardiology Nurse notified [place] contacted local homeless veterans hotline. Cardiology Nurse called at number provided. [place] reported he was 3 months behind rent (approx 5k), over income for RAFT due to 50K income for this year, his income has dropped significantly. [place] went to satellite office and assisted with [facility] application. informed of O as well. [place] provided with local [facility] after his visit with [facility] denied other issues to be addressed in the call [place] encouraged to contact va provider if further assistance needed call time 5 minutes /ivone/ JOSIAS HONEYCUTT Car Parker GPD Program Signed: 10/26/2023 11:22 [facility] ([id number])
--- OUTSIDE RECORDS SUMMARY | 2024-03-02 09:00 | XMS_ITS | Encounter Summary ---
Author Name Department of [place] Organization Department [place] Address [address] [place] [address] Care Team Providers Care Political Worker Name Role Phone BOY DELONG Primary [...] PRESCRIPT ION HEALT H NEW ENGL [facility] Mar 07, 2020 [facility] [phone] MARGARETH HONG RRYL PATIENT Selected Encounter This section includes the information on record at [place] for the Encounter. Date/Time Encounter Type Encounter Description Reason Pro vider Source Sep 21, 2023 10:08 AM Outpatient Encounter PRIMARY CARE/MEDICINE IHE Encounter Template Text not used by [place] Plan of Treatment: Future Appointments (+ 6 months) and Future Tests (+/- 45 days) The Plan of Treatment section includes future care activities for the patient from all [place] treatmentfacilities. This section includes future appointments and [...] AMBULATORY - PSYCHIATRY [facility] [place] [facility] Oct 28, 2023 10:00 AM AMBULATORY - PSYCHIATRY [facility] [place] [facility] Nov 11, 2023 11:00 AM AMBULATORY - PSYCHIATRY [facility] [place] [facility] Nov 14, 2023 03:00 PM AMBULATORY - MEDICINE [facility] [place] [facility] Nov 17, 2023 08:00 AM AMBULATORY - MEDICINE [facility] C [facility] [place] [facility] Jan 06, 2024 10:00 AM AMBULATORY - MEDICINE [facility] Jan 10, 2024 11:15 AM AMBULATORY - NONE [place] [facility] [facility] Jan 10, 2024 11:30 AM AMBULATORY - NONE [facility] [facility] Jan 13, 2024 10:00 AM AMBULATORY - PSYCHIATRY [facility] [facility] Jan 13, 2024 01:00 PM AMBULATORY - MEDICINE [place] C [facility] [place] [facility] Feb 03, 2024 03:30 PM AMBULATORY - MEDICINE [facility] Mar 01, 2024 11:00 AM AMBULATORY - MEDICINE [place] C [place]TRL [place] [facility] Encounter Notes: All associated encounter [...] with audie street /ivone/ JT MANUEL Advanced Coal Mill Operator Signed: 09/21/2023 11:08 Receipt Acknowledged By: 09/21/2023 11:56 /ivone/ LJ ASHLEY PSYD Clinical Psychologist ANITA MANUEL [facility]
--- OUTSIDE RECORDS SUMMARY | 2024-03-02 09:00 | XMS_ITS | Encounter Summary ---
Author Name Department of [place] Organization [place] Address [address] [place] [address] Care Team Providers Care Banquet Server Name Role Phone BOY DELONG Primary [...] RX PRESCRIPT ION HEALT H NEW ENGL [facility] Mar 07, 2020 [facility] [id number] MARGARETH HONG RRYL PATIENT Selected Encounter [...] [place]L [place] [facility] Jan 06, 2024 10:00 AM AMBULATORY - MEDICINE [facility] Jan 10, 2024 11:15 AM AMBULATORY - NONE [place] [facility] [place] [facility] Jan 10, 2024 11:30 AM AMBULATORY - NONE [place] [facility] [facility] Jan 13, 2024 10:00 AM AMBULATORY - PSYCHIATRY [facility] [facility] Jan 13, 2024 01:00 PM AMBULATORY - MEDICINE [place] [facility] [place] [facility] Feb 03, 2024 03:30 PM AMBULATORY - MEDICINE [facility] Mar 01, 2024 11:00 AM AMBULATORY - MEDICINE [place] [facility] [place] [facility] Encounter Notes: All associated encounter [...] attempt: 4th attempt: /ivone/ SABRINA GABRIEL ADVANCED EMERGENCY ROOM NURSE Signed: 09/06/2023 13:55 09/20/2023 ADDENDUM STATUS: COMPLETED RTC 09/21/2023 dispositioned due to veterans failure to respond to all contact efforts per department standards. Dispositioned on 09/21/2023. /ivone/ SABRINA GABRIEL ADVANCED EMERGENCY ROOM NURSE Signed: 09/20/2023 15:36 SABRINA GABRIEL [facility]N [facility] Sep 06, 2023 01:55 PM LETTERS: LOCAL TITLE: PATIENT LETTER (B) STANDARD TITLE: LETTERS DATE OF NOTE: SEP 06, 2023@13:55 ENTRY DATE: SEP 06, 2023@13:56:01 AUTHOR: SABRINA GABRIEL EXP COSIGNER: URGENCY: STATUS: COMPLETED SEP 06, 2023 LUPILLO HONG [address] [facility] [place] [address] Dear LUPILLO HONG Thank you for choosing the [facility] ([place]) [facility] as your primary choice for health care. As a partner in your health care, we are contacting you in writing since we have been unsuccessful in our attempts to reach you to date. We want to assure you we are doing everything possible to schedule Veterans for their [place] medical care appointments. Our records indicate you are due for an appointment in MEDICAL REHAB . If you would like to be seen, please contact [facility] at ext. [phone] to schedule an appointment. Thank you for your service to our nation, and we look forward to hearing from you soon. Sincerely, [facility] [address] [facility] [address] [place] [address] [place] [address] [facility] [address] [facility] [address] [place] [address] [place] [address] ext. [phone] [facility] [address] [facility] [address] [place] [address] [place] [address] ext. [phone] SABRINA GABRIEL [place] CNTR [facility]
--- OUTSIDE RECORDS SUMMARY | 2024-03-02 09:00 | XMS_ITS | Encounter Summary ---
Author Name Department [place] Organization [place] Address [address] [place] [address] Care Team Providers Care Slurry Plant Operator Name Role Phone BOY DELONG Primary [...] [facility] Mar 07, 2020 [facility] [id number] MARGARETH HONG RRYL PATIENT Selected Encounter [...] AMBULATORY - PSYCHIATRY [place] [facility] [facility] Nov 11, 2023 11:00 AM AMBULATORY - PSYCHIATRY [facility] [place] [facility] Nov 14, 2023 03:00 PM AMBULATORY - MEDICINE [place] C [facility] [place] [facility] Nov 17, 2023 08:00 AM AMBULATORY - MEDICINE [place] [facility] [place] [facility] Jan 06, 2024 10:00 AM AMBULATORY - MEDICINE [facility] Jan 10, 2024 11:15 AM AMBULATORY - NONE [place] [facility] [place] [facility] Jan 10, 2024 11:30 AM AMBULATORY - NONE [place] [facility] [place] [facility] Jan 13, 2024 10:00 AM AMBULATORY - PSYCHIATRY [facility] [place] [facility] Jan 13, 2024 01:00 PM AMBULATORY - MEDICINE [place] C [facility] [place] [facility] Feb 03, 2024 03:30 PM AMBULATORY - MEDICINE [facility] Mar 01, 2024 11:00 AM AMBULATORY - MEDICINE [place] C [place] [facility] Apr 06, 2024 10:00 AM AMBULATORY - PSYCHIATRY [place] [facility] [place] [facility] Encounter Notes: All associated encounter notes This section contains the clinical notes associated to the Encounter. Date/Time Encounter Note(s) Provider Source Oct 14, 2023 01:32 PM RN PROGRESS NOTE: LOCAL TITLE: CCC: CLINICAL TRIAGE STANDARD TITLE: RN PROGRESS NOTE DATE OF NOTE: OCT 14, 2023@13:32:48 ENTRY DATE: OCT 14, 2023@13:32:48 AUTHOR: ARIEL CABRAL COSIGNER: URGENCY: STATUS: COMPLETED Patient Demographics Patient Name: LUPILLO HONG Patient Primary Address: [address] [place] [id number] Patient Primary Phone: [phone] Patient : 1960 Patient Age: 62 Current Location: home Call Back Number: verified Caller/Recipient Relation to Patient: Self Emergency Contact: KBCAESAR HONG Triage Summary Conducted triage/discussed symptoms Pain Score: 2 Utilized the Triage Tool: Yes Chief Complaint: Knee Pain (one knee) System WHEN: Within 24 Hours Nurse's Recommendation / WHEN: Within 24 Hours System WHERE: Clinic Nurse's Recommendation / WHERE: Clinic/[facility] Patient Disposition Patient/Caregiver agrees to plan of care: Yes Patient WHERE: Urgent Care non-VA Patient WHEN: Within 24 hours Other - Patient When Disposition: was not sure he would go in to be seen Nursing Plan and Disposition Referred patient to higher level of care Instructed to go to Urgent Care (UC) Provided location of Urgent Care Center Advised of [place] Act UC Benefits Nurse Summary Nurse Summary: is calling to state that he twisted his left knee this week when he startled out of a sleep and fell off of his bed during the night. States his left knee is not red but is swollen and stiff with limited range of motion and pain level of 1-2. [place] is limping when walking and has been taking Celebrex and Tylenol with some relief. Advised to be seen at the [facility] urgent care using the [place] Act: [facility] [address] [place] [phone] Main number: [phone] Clinical Contact Center Codes Clinic/Location: V1 CWM PHONE BAUDILIO RN Decision Support System Output: Triage Complete Triage Date: 10/14/2023, 01:26 PM Triage Note: Decision Support Tool Used: TXCC Phone Triage 14 Oct 2023 17:24:41 +0000 [facility] Demographics 63 y/o Male Results CC: Knee Pain (one knee) Software suggested: Within 24 Hours Software suggested follow-up location: Clinic, consider [facility] care Values and Measures Duration of CC: [...] worsening Denies: PMH: gout /es/ ARIEL [facility] BAUDILIO RN Signed: 10/14/2023 13:32 Receipt Acknowledged By: 10/14/2023 13:54 /es/ Imelda Lutz, RN Registered Nurse (RN) 10/14/2023 14:13 /es/ SUZETTE WOO LPN LICENSED PRACTICAL NURSE ARIEL [facility]AL [facility]
--- OUTSIDE RECORDS SUMMARY | 2024-03-02 09:00 | XMS_ITS ---
Author Name Department [place] Organization [place] Address [address] [place] [address] Care Team Providers Care Surgeon Chief Name Role Phone BOY DELONG Primary Care [...] RX PRESCRIPT ION HEALT H [place] [facility] Mar 07, 2020 [facility] [id number] MARGARETH HONG RRYL PATIENT Selected Encounter [...] AMBULATORY - PSYCHIATRY [place] [facility] [place] [facility] Nov 11, 2023 11:00 AM AMBULATORY - PSYCHIATRY [facility] [place] [facility] Nov 14, 2023 03:00 PM AMBULATORY - MEDICINE [place] [facility] [place] [facility] Nov 17, 2023 08:00 AM AMBULATORY - MEDICINE [place] [facility] [place] [facility] Jan 06, 2024 10:00 AM AMBULATORY - MEDICINE [facility] Jan 10, 2024 11:15 AM AMBULATORY - NONE [place] [facility] [place] [facility] Jan 10, 2024 11:30 AM AMBULATORY - NONE [place] [facility] [place] [place] [facility] Jan 13, 2024 10:00 AM AMBULATORY - PSYCHIATRY [facility] [place] [facility] Jan 13, 2024 01:00 PM AMBULATORY - MEDICINE [place] [facility] [place] [facility] Feb 03, 2024 03:30 PM AMBULATORY - MEDICINE [facility] Mar 01, 2024 11:00 AM AMBULATORY - MEDICINE [place] [facility] [place] [facility] Apr 06, 2024 10:00 AM AMBULATORY - PSYCHIATRY [place] [facility] [place] [facility] Lab Results: +/- 30 days of the [...] Range Comment Nov 17, 2023 08:30 AM [place] [facility] [place] [facility] CULTURE,BODY FLUID PANEL(C.D.H) Specimen Type: SYNOVIAL FLUID Comment: Refer to CPRS: [place] Imag. Display for Lab Results Ordering Provider: REESE MCFADDEN Report Released Date/Time: Nov 17, 2023 09:15 AM Reporting Lab: [place] [facility] [place] [facility] [address] [facility] [address] Performing Lab: [facility] [address] [facility] [address] GRAM STAIN(cdh) comment ANAEROBIC CULTURE(cdh) comment CULTURE,BODY FLUID(cdh) comment Nov 17, 2023 08:30 AM [facility] GLUCOSE, SYNOVIAL (q) Specimen Type: SYNOVIAL FLUID Comment: Synovial fluid glucose values are equivalent to plasma values if obtained from a fasting patient. The difference between the plasma glucose and synovial fluid glucose value should be <10 mg/dL. Test Performed by [facility], [facility], [address] [place] [address] Rajesh Doss M.D., Ph.D., Director of Laboratories , CLIA [id number] TEST PERFORMED AT: , Ordering Provider: REESE MCFADDEN Report Released Date/Time: Nov 17, 2023 09:15 AM Reporting Lab: [address] [address] Performing Lab: [facility] [address] [address] GLUCOSE, SYNOVIAL (q) 145 mg/dL Nov 17, 2023 08:30 AM [facility] SYNOVIAL FLUID CRYSTALS PANEL Specimen Type: SYNOVIAL FLUID No comment entered. Ordering Provider: REESE MCFADDEN Report Released Date/Time: Nov 17, 2023 09:24 AM Reporting Lab: [facility] [address] [facility] [address] Performing Lab: [facility] [address] [facility] [address] CRYSTALS,BF Positive Negative MSU CRYSTALS,BF Present Negative MSU CRYSTAL EXTRA,BF Present Negative MSU CRYSTAL INTRA,BF Present Negative Nov 17, 2023 08:30 AM [facility] CELL COUNT (SYNOVIAL FLUID) Specimen Type: SYNOVIAL FLUID Comment: *CRYSTALS Not Performed: Nov 17, 2023@09:25 by [id number] *CORRECTIONAL CLASSIFICATION COUNSELOR Reason: see wrled 5596 for results Ordering Provider: REESE MCFADDEN Report Released Date/Time: Nov 17, 2023 09:15 AM Reporting Lab: [address] [address] Performing Lab: [place] [address] [facility] [address] WBC 350 RBC <3000 COLOR Y VOLUME [...] injection may be scheduled. /ivone/ JAM MCFADDEN PAC,P Signed: 10/19/2023 09:11 JAM MCFADDEN [place] [facility]
--- OUTSIDE RECORDS SUMMARY | 2024-03-02 09:00 | XMS_ITS ---
Author Name Department [place] Address [address] [place] [address] Care Team Providers Care Mechanics Handyman Name Role Phone BOY DELONG Primary Care [...] OPTUM RX PRESCRIPT ION HEALT H [facility] Mar 07, 2020 [facility] [phone] MARGARETH HONG RRYL PATIENT Selected Encounter This section includes the information on record at [place] for the Encounter. Date/Time Encounter Type Encounter Description Reason Provider Source Sep 09, 2023 09:30 AM MTMS BY PHARM ADDL 15 [facility] - IND ICD-10-CM F32.1 Major depressive disorder, single episode, moderate PRETTY MEEHAN Rosibel Encounter Template Text not used by [place] Assessments - Encounter Diagnoses This section includes the primary and secondary diagnoses documented for the Encounter. Date/Time Primary/Secondary Diagnosis Diagnosis Name Provider Source Sep 09, 2023 10:55 AM PRIMARY Major depressive disorder, single episode, moderate [facility]AN [facility] Plan of Treatment: Future Appointments (+ 6 months) and Future Tests (+/- 45 days) The Plan of Treatment section includes future care activities for the patient from all [facility]. This section includes future appointments and future orders which are active, pending or scheduled. Future Appointments This section includes appointments that were scheduled to occur 6 months from the date of the Encounter, up to a maximum of 20 appointments. The data comes from all [place] treatment facilities. Appointment Date/Time Appointment Type Appointme nt Facility Name Oct 14, 2023 09:30 AM AMBULATORY - PSYCHIATRY [facility] [place] [facility] Oct 28, 2023 10:00 AM AMBULATORY - PSYCHIATRY [facility] [place] [facility] Nov 11, 2023 11:00 AM AMBULATORY - PSYCHIATRY [place] [facility] [place] [facility] Nov 14, 2023 03:00 PM AMBULATORY - MEDICINE [place] [facility] [place] [facility] Nov 17, 2023 08:00 AM AMBULATORY - MEDICINE [place] [place] [facility] Jan 06, 2024 10:00 AM AMBULATORY - MEDICINE [facility] Jan 10, 2024 11:15 AM AMBULATORY - NONE [place] [facility] [place] [facility] Jan 10, 2024 11:30 AM AMBULATORY - NONE [place] [facility] [place] [facility] Jan 13, 2024 10:00 AM AMBULATORY - PSYCHIATRY [place] [facility] [place] [facility] Jan 13, 2024 01:00 PM AMBULATORY - MEDICINE [place] [place] [facility] Feb 03, 2024 03:30 PM AMBULATORY - MEDICINE [facility] Mar 01, 2024 11:00 AM AMBULATORY - MEDICINE [place] [place] [facility] Encounter Notes: All associated encounter [...] Resources Only: E911 (Emergency Call Relay Center): [phone] National Veterans Crisis Line - 988 then press #1. PHIL Suicide Coordinator [phone], Ext. [phone]; Back-up Ext. [phone] [place] Police, Valente VILLARREAL [phone] Introduction: Visit is being conducted by [place] [employer]. [place] identified with 2 identifiers: [X] Full Name [X] Date of [ ] VA ID Card Emergency Plan: [place] confirmed and/or provided the following information in case of emergency or technology failure. PATIENT PHONE - PHONE NUMBER [CELLULAR] - NONE FOUND Is patient phone number correct, if not, enter below: [place]'s phone number: LUPILLO HONG [address], [place], [address] 's present location and address for appointment: at home 's emergency contact name and phone number: on file [place] reported that location is private and safe: Yes Informed Consent: [place] informed of the risks and benefits of Telehealth video care. [place] has the right to refuse video services. If refuses video visit, a [id number] visit will be scheduled. verbalized consent for this video visit: Yes [place] provided consent for any other persons present [...] 62yo BLACK OR MALE -=-=-=-=-=-=-=-=-=-=-=-=-=-=- =-=-=-=-=-==-=-=-=-=-=-=-=-=- =-=-=-=-=-=Subjective- [place] was last seen on [id number] with [...] not feel rested; avg 4hrs Apetite: okay reports the following regarding medications: -N--Y- [X][ [...] following review of all active psychotropic and MEDICARE SALES EXECUTIVE-active agents is to ensure pharmacotherapy is evaluated [...] Other: RTC Interval: every 4-6weeks Next Apt: [id number] [place] was provided group underwriter's contact information and instructed to contact group underwriter as needed for any changes to scheduling or concerns otherwise. [place] is aware of actions to take if they feel unsafe, including calling the 's Crisis Line (#403); calling 911; or going to the nearest urgent care or emergency room. The is also aware of how to contact the clinic should the require additional services prior to the next appointment. Time spent on chart review, session, and documentation: 30minutes /es/ Dieudonne Meehan PharmD Clinical Pharmacist Practitioner Signed: 09/09/2023 11:28 DIEUDONNE MEEHAN [facility]
--- OUTSIDE RECORDS SUMMARY | 2024-03-02 09:01 | XMS_ITS | Encounter Summary ---
Author Name Department of [place] Organization [place] Address [address] [place] [address] Care Team Providers Care Re Etcher Name Role Phone BOY DELONG Primary [...] PRESCRIPT ION HEALT H [place] [facility] Mar 07, 2020 [facility] [id number] MARGARETH HONG RRYL PATIENT Selected Encounter [...] 17, 2023 08:00 AM AMBULATORY - MEDICINE [place] [facility] Jan 06, 2024 10:00 AM AMBULATORY - MEDICINE [facility] Jan 10, 2024 11:15 AM AMBULATORY - NONE [place] [facility] [place] [facility] Jan 10, 2024 11:30 AM AMBULATORY - NONE [place] [facility] [place] [facility] Jan 13, 2024 10:00 AM AMBULATORY - PSYCHIATRY [place] [facility] [place] [facility] Jan 13, 2024 01:00 PM AMBULATORY - MEDICINE [place] C [place] [facility] Feb 03, 2024 03:30 PM AMBULATORY - MEDICINE [facility] Mar 01, 2024 11:00 AM AMBULATORY - MEDICINE [place] C [place] [facility] Apr 06, 2024 10:00 AM [facility]UL[facility] Lab Results: +/- 30 days [...] Range Comment Nov 17, 2023 08:30 AM [facility] [place] CULTURE,BODY FLUID PANEL(C.D.H) Specimen Type: SYNOVIAL FLUID Comment: Refer to CPRS: [place] Imag. Display for Lab Results Ordering Provider: REESE MCFADDEN Report Released Date/Time: Nov 17, 2023 09:15 AM Reporting Lab: [facility] [address] [facility] [address] Performing Lab: [facility] [address] [facility] [address] GRAM STAIN(cdh) comment ANAEROBIC CULTURE(cdh) comment CULTURE,BODY FLUID(cdh) comment Nov 17, 2023 08:30 AM [facility] [place] GLUCOSE, SYNOVIAL (q) Specimen Type: SYNOVIAL FLUID Comment: Synovial fluid glucose values are equivalent to plasma values if obtained from a fasting patient. The difference between the plasma glucose and synovial fluid glucose value should be <10 mg/dL. Test Performed by [facility], [address] [place], [place] Rajesh Doss M.D., Ph.D., Director of Laboratories , CLIA [id number] TEST PERFORMED AT: , Ordering Provider: REESE MCFADDEN Report Released Date/Time: Nov 17, 2023 09:15 AM Reporting Lab: [facility]TR[facility] [address] [facility] [address] Performing Lab: [facility]ITALRCR[facility]N [facility] [address] [address] GLUCOSE, SYNOVIAL (q) 145 mg/dL Nov 17, 2023 08:30 AM [facility] SYNOVIAL FLUID CRYSTALS PANEL Specimen Type: SYNOVIAL FLUID No comment entered. Ordering Provider: REESE MCFADDEN Report Released Date/Time: Nov 17, 2023 09:24 AM Reporting Lab: [facility]ITALRELI[facility]ITALTRN [facility] [address] [facility] [address] Performing Lab: [facility]ITALRE[facility]ITALTRN [facility] [address] [facility] [address] CRYSTALS,BF Positive Negative MSU CRYSTALS,BF Present Negative MSU CRYSTAL EXTRA,BF Present Negative MSU CRYSTAL INTRA,BF Present Negative Nov 17, 2023 08:30 AM [facility] CELL COUNT (SYNOVIAL FLUID) Specimen Type: SYNOVIAL FLUID Comment: *CRYSTALS Not Performed: Nov 17, 2023@09:25 by [id number] *CAKE PULLER Reason: see wrled 4300 for results Ordering Provider: REESE MCFADDEN Report Released Date/Time: Nov 17, 2023 09:15 AM Reporting Lab: [facility]ITALRELI[facility]ITALTRN [facility] [address] [facility] [address] Performing Lab: [facility]OSPITALRCROSSBRIDGE BE[facility]IOR[facility] HEALTHN [facility]CAREUSETS [address] [address] WBC 350 RBC <3000 COLOR Y VOLUME [...] RS no showed appt 11/13 at 3pm. Clemons has his days mixed up, thought it was for tmrw. Over the weekend he isnt sure what he did but one of his knees is swollen. Wanted to know what to do, should he get it xrayed? Is there anything that should or shouldnt be done? Would like a call back regarding this. Primary number confirmed. /barbara GABRIEL ADVANCED DIRECTOR MEDICAL SAFETY Signed: 11/14/2023 15:53 Receipt Acknowledged By: 11/15/2023 07:36 /barbara Orozco LPN LPN 11/15/2023 08:23 /barbara Grewal RN Med Rehab 11/15/2023 ADDENDUM STATUS: COMPLETED Clemons scheduled for November 17, 2023 @ 0800 - /barbara Orozco LPN LPN Signed: 11/15/2023 07:38 11/15/2023 ADDENDUM STATUS: COMPLETED Called , informed him provider will evaluate knee when he is here 11/16, for the next couple of days rest, elevate, and ice it, vet apprecitive for call. /barbara Grewal RN Med Rehab Signed: 11/15/2023 08:24 SABRINA GABRIEL [facility]
--- OUTSIDE RECORDS SUMMARY | 2024-03-02 09:01 | XMS_ITS | Encounter Summary ---
Author Name Department of Vetera Affairs [place] Organization Department of [place] Address [address] [place] [address] Care Team Providers Care Mortician Helper Name Role Phone BOY DELONG Primary [...] RX PRESCRIPT ION HEALT H [place] [facility] Mar 07, 2020 [facility] [id number] MARGARETH HONG RRYL PATIENT Selected Encounter [...] 2024 10:00 AM AMBULATORY - MEDICINE [facility] Jan 10, 2024 11:15 AM AMBULATORY - NONE [place] [facility] [place] [facility] Jan 10, 2024 11:30 AM AMBULATORY - NONE [place] [facility] [facility] Jan 13, 2024 10:00 AM AMBULATORY - PSYCHIATRY [place] [facility] [place] [facility] Jan 13, 2024 01:00 PM AMBULATORY - MEDICINE [place] [facility] Feb 03, 2024 03:30 PM [facility] Mar 01, 2024 11:00 AM AMBULATORY - MEDICINE [place] [facility] Apr 06, 2024 10:00 AM AMBULATORY - PSYCHIATRY [place] [facility] [place] [facility] May 14, 2024 10:30 AM AMBULATORY - MEDICINE [place] [facility] Lab Results: +/- 30 days [...] Nov 17, 2023 08:30 AM [facility] CULTURE,BODY FLUID PANEL(C.D.H) Specimen Type: SYNOVIAL FLUID Comment: Refer to CPRS: [place] Imag. Display for Lab Results Ordering Provider: REESE MCFADDEN Report Released Date/Time: Nov 17, 2023 09:15 AM Reporting Lab: [place] [facility] [address] [facility] [address] Performing Lab: [place] [facility] [address] [facility] [address] GRAM STAIN(cdh) comment ANAEROBIC CULTURE(cdh) comment CULTURE,BODY FLUID(cdh) comment Nov 17, 2023 08:30 AM [facility] GLUCOSE, SYNOVIAL (q) Specimen Type: SYNOVIAL FLUID Comment: Synovial fluid glucose values are equivalent to plasma values if obtained from a fasting patient. The difference between the plasma glucose and synovial fluid glucose value should be <10 mg/dL. Test Performed by [facility], [address] [place], [place] Rajesh Doss M.D., Ph.D., Director of Laboratories , CLIA [id number] TEST PERFORMED AT: , Ordering Provider: REESE MCFADDEN Report Released Date/Time: Nov 17, 2023 09:15 AM Reporting Lab: [facility] [address] [facility] [address] Performing Lab: [facility] [address] [facility], [address] [place] [address] GLUCOSE, SYNOVIAL (q) 145 mg/dL Nov 17, 2023 08:30 AM [facility] SYNOVIAL FLUID CRYSTALS PANEL Specimen Type: SYNOVIAL FLUID No comment entered. Ordering Provider: REESE MCFADDEN Report Released Date/Time: Nov 17, 2023 09:24 AM Reporting Lab: [facility]ITAL[facility]TR[facility] [address] [facility] [address] Performing Lab: [facility] [address] [facility] [address] CRYSTALS,BF Positive Negative MSU CRYSTALS,BF Present Negative MSU CRYSTAL EXTRA,BF Present Negative MSU CRYSTAL INTRA,BF Present Negative Nov 17, 2023 08:30 AM [facility] CELL COUNT (SYNOVIAL FLUID) Specimen Type: SYNOVIAL FLUID Comment: *CRYSTALS Not Performed: Nov 17, 2023@09:25 by [id number] *BATCH BLENDER Reason: see wrled 3108 for results Ordering Provider: REESE MCFADDEN Report Released Date/Time: Nov 17, 2023 09:15 AM Reporting Lab: [facility]ITAL[facility] [address] [facility] [address] Performing Lab: [facility]ITALUSETS [address] [address] WBC 350 RBC <3000 COLOR Y VOLUME 2ml mL APPEARANCE C NUCLEATED CELL # comment [id number] Encounter Notes: All associated encounter notes This section contains the clinical notes associated to the Encounter. Date/Time Encounter Note(s) Provider Source Nov 17, 2023 12:00 AM NONVA DIAGNOSTIC S BENJADY REPORT: LOCAL TITLE: NON-VA DIAGNOSTICS STANDARD TITLE: NONVA DIAGNOSTIC STUDY REPORT DATE OF NOTE: NOV 17, 2023 ENTRY DATE: NOV 21, 2023@13:51:13 AUTHOR: CLAY REED MA EXP COSIGNER: URGENCY: STATUS: COMPLETED VistA Imaging - Scanned Document SCANNED DOCUMENT SIGNATURE NOT REQUIRED Electronically Filed: 11/21/2023 by: CLAY REED PATHOLOGY LAB TECHNICIAN CLAY REED [place] [facility]
--- OUTSIDE RECORDS SUMMARY | 2024-03-02 09:01 | XMS_ITS ---
Author Name [facility] [place] Address [address] [place] [address] Care Team Providers Care Defective Cigarette Slitter Name Role Phone BOY DELONG Primary Care [...] RX PRESCRIPT ION HEALT H [facility] Mar 07, 2020 [facility] [id number] MARGARETH HONG RRYL PATIENT Selected Encounter This section includes the information on record at [place] for the Encounter. Date/Time Encounter Type Encounter Description Reason Pro vider Source Nov 23, 2023 02:08 PM Outpatient Encounter HUD/VASH INDIV IHE Encounter Template Text not used by [place] Plan of Treatment: Future Appointments (+ 6 months) and Future Tests (+/- 45 days) The Plan of Treatment section includes future care activities for the patient from all [place] treatmentfacilities. This section includes future appointments and future orders which are active, pending or scheduled. Future Appointments This section includes appointments that were scheduled to occur 6 months from the date of the Encounter, up to a maximum of 20 appointments. The data comes from all [place] treatment facilities. Appointment Date/Time Appointment Type Appointme nt Facility Name Jan 06, 2024 10:00 AM AMBULATORY - MEDICINE [facility] Jan 10, 2024 11:15 AM AMBULATORY - NONE [facility] [place] [facility] Jan 10, 2024 11:30 AM AMBULATORY - NONE [facility] [place] [facility] Jan 13, 2024 10:00 AM AMBULATORY - PSYCHIATRY [facility] [place] [facility] Jan 13, 2024 01:00 PM AMBULATORY - MEDICINE [facility] [place] [facility] Feb 03, 2024 03:30 PM AMBULATORY - MEDICINE [facility] Mar 01, 2024 11:00 AM AMBULATORY - MEDICINE [facility] [place] [facility] Apr 06, 2024 10:00 AM AMBULATORY - PSYCHIATRY [facility] [place] [facility] May 14, 2024 10:30 AM AMBULATORY - MEDICINE [facility] [place] [facility] Lab Results: +/- 30 days of the encounter This section includes the Chemistry and Hematology Lab Results on record with [facility] for the patient. Radiology Reports and Pathology Reports are provided separately, in subsequent sections. Lab Results This section contains the Chemistry/Hematology Results that were resulted 30 days before or 30 daysafter the date of the Encounter. Date/Time Source Result Type Result - Unit Interpretation Reference Range Comment Nov 17, 2023 08:30 AM [facility] [place] [facility] CULTURE,BODY FLUID PANEL(C.D.H) Specimen Type: SYNOVIAL FLUID Comment: Refer to CPRS: [place] Imag. Display for Lab Results Ordering Provider: REESE MCFADDEN Report Released Date/Time: Nov 17, 2023 09:15 AM Reporting Lab: [facility] [place] [facility] [address] [facility] [address] Performing Lab: [facility] [place] [facility] [address] [facility] [address] GRAM STAIN(cdh) comment ANAEROBIC CULTURE(cdh) comment CULTURE,BODY FLUID(cdh) comment Nov 17, 2023 08:30 AM [facility] [place] [facility] GLUCOSE, SYNOVIAL (q) Specimen Type: SYNOVIAL FLUID Comment: Synovial fluid glucose values are equivalent to plasma values if obtained from a fasting patient. The difference between the plasma glucose and synovial fluid glucose value should be <10 mg/dL. Test Performed by Dustin Patriciatilly, [facility], [address] [place], [place] Rajesh Doss M.D., Ph.D., Director of Laboratories , CLIA [id number] TEST PERFORMED AT: , Ordering Provider: REESE MCFADDEN Report Released Date/Time: Nov 17, 2023 09:15 AM Reporting Lab: [facility] [place] [facility] [address] [facility] [address] Performing Lab: [facility] [address] [facility], [address] [place] [address] GLUCOSE, SYNOVIAL (q) 145 mg/dL Nov 17, 2023 08:30 AM [facility] SYNOVIAL FLUID CRYSTALS PANEL Specimen Type: SYNOVIAL FLUID No comment entered. Ordering Provider: REESE MCFADDEN Report Released Date/Time: Nov 17, 2023 09:24 AM Reporting Lab: [facility] [place] [facility] [address] [facility] [address] Performing Lab: [facility]PITALRSHELBY [facility] CENTERTRN [facility]ITALUSETS [facility] [address] [facility] [address] CRYSTALS,BF Positive Negative MSU CRYSTALS,BF Present Negative MSU CRYSTAL EXTRA,BF Present Negative MSU CRYSTAL INTRA,BF Present Negative Nov 17, 2023 08:30 AM [facility]N [facility]ITAL[facility] CELL COUNT (SYNOVIAL FLUID) Specimen Type: SYNOVIAL FLUID Comment: *CRYSTALS Not Performed: Nov 17, 2023@09:25 by [id number] *WELL DRILL OPERATOR Reason: see wrled [id number] for results Ordering Provider: REESE MCFADDEN Report Released Date/Time: Nov 17, 2023 09:15 AM Reporting Lab: [facility]PITALRSHELBY [facility]ENTERTRN [facility] HOSPITALUSETS [facility] [address] [facility] [address] Performing Lab: [facility]N [facility]OSPITALUSETS [facility] [address] [facility] [address] WBC 350 RBC <3000 COLOR Y VOLUME 2ml mL APPEARANCE C NUCLEATED CELL # comment 0-200 Encounter Notes: All associated encounter notes This section contains the clinical notes associated to the Encounter. Date/Time Encounter Note(s) Provider Source Nov 23, 2023 02:15 PM ADDENDUM: LOCAL TITLE: Addendum STANDARD TITLE: ADDENDUM DATE OF NOTE: NOV 23, 2023@14:15:21 ENTRY DATE: NOV 23, 2023@14:15:21 AUTHOR: ALEXX NAYAK EXP COSIGNER: URGENCY: STATUS: COMPLETED SW called [place] and let him know that he is overincome. SW let him know that he can continue working with the outreach team. /es/ JOSIAS NICHOLE [employer]KE LININGS Signed: 11/23/2023 14:17 Receipt Acknowledged By: 11/24/2023 16:47 /es/ Ame Hess [facility], [facility] --- Original Document --- 11/23/23 [facility] REFERRAL/PRESCREENING: Diagnosis: Lack of Housing Length of visit: N/A Referred to [facility] on this date: Oct Referral Source: Ame Hess is applying alone. is currently staying: [place] is being evicted from his apartment. ELIGIBILITY STATUS: [place] is not eligible for [facility] (specify reason) is over income (specify income):Aproximatly $4,508 a month. /es/ JOSIAS NICHOLE [employer] Signed: 11/23/2023 14:13 Receipt Acknowledged By: 11/24/2023 16:42 /es/ Ame Hess [facility], [facility] SONNY NAYAKFIELD Nov 23, 2023 02:09 PM HOMELESS PROGRAM N OTE: LOCAL TITLE: [facility] REFERRAL/PRESCREENING STANDARD TITLE: HOMELESS PROGRAM NOTE DATE OF NOTE: NOV 23, 2023@14:09 ENTRY DATE: NOV 23, 2023@14:09:08 AUTHOR: ALEXX NAYAK EXP COSIGNER: URGENCY: STATUS: COMPLETED [facility] REFERRAL/PRESCREENING Has ADDENDA Diagnosis: Lack of Housing Length of visit: N/A Referred to [facility] on this date: Oct Referral Source: Ame Hess [place] is applying alone. [place] is currently staying: is being evicted from his apartment. ELIGIBILITY STATUS: [place] is not eligible for [facility] (specify reason) [place] is over income (specify income):Aproximatly $4,508 a month. /es/ SONNY NAYAKNYU [facility] COATER BRAKE LININGS Signed: 11/23/2023 14:13 Receipt Acknowledged By: 11/24/2023 16:42 /es/ Ame Hess [facility] 11/23/2023 ADDENDUM STATUS: COMPLETED SW called and let him know that he is overincome. SW let him know that he can continue working with the outreach team. /es/ SONNY NAYAKSURVEY DATA TECHNICIAN [facility] COATER BRAKE LININGS Signed: 11/23/2023 14:17 Receipt Acknowledged By: * AWAITING SIGNATURE * AME HESS [place]
--- OUTSIDE RECORDS SUMMARY | 2024-03-02 09:01 | XMS_ITS ---
Author Name [facility] [place] Organization [facility] [place] Address [address] [place] [address] Care Team Providers Care Nuclear Plant Operator Name Role Phone BOY DELONG [...] OPTUM RX PRESCRIPT ION HEALT H [facility] Mar 07, 2020 [facility] [id number] MARGARETH HONG RRYL PATIENT Selected Encounter This section includes the information on record at [place] for the Encounter. Date/Time Encounter Type Encounter Description Reason Provider Source Dec 07, 2023 10:31 AM HC PRO PHONE CALL 5-10 MIN TELEPHONE HCMI ICD-10-CM Z59.819 Housing instability, housed unspecified AME HESS Rosibel Encounter Template Text not used by [place] Assessments - Encounter Diagnoses This section includes the primary and secondary diagnoses documented for the Encounter. Date/Time Primary/Secondary Diagnosis Diagnosis Name Provider Source Dec 07, 2023 10:31 AM PRIMARY Housing instability, housed unspecified [facility] Plan of Treatment: Future Appointments (+ 6 months) and Future Tests (+/- 45 days) The Plan of Treatment section includes future care activities for the patient [facility] [place] [facility] This section includes future appointments [...] 10, 2024 11:15 AM AMBULATORY - NONE [place] [facility] [place] [facility] Jan 10, 2024 11:30 AM AMBULATORY - NONE [place] [facility] [place] [facility] Jan 13, 2024 10:00 AM AMBULATORY - PSYCHIATRY [place] [facility] [place] [facility] Jan 13, 2024 01:00 PM AMBULATORY - MEDICINE [place] [facility] [place] [facility] Feb 03, 2024 03:30 PM AMBULATORY - MEDICINE [facility] Mar 01, 2024 11:00 AM AMBULATORY - MEDICINE [place] [facility] Apr 06, 2024 10:00 AM AMBULATORY - PSYCHIATRY [place] [facility] [place] [facility] May 14, 2024 10:30 AM AMBULATORY - MEDICINE [place] [facility] [place] [place] [facility] Active, Pending, and Scheduled Orders This [...] PM Consult Order [facility] Cons [employer] [place] [facility] [place] [facility] Lab Results: +/- 30 days of [...] Range Comment Jan 06, 2024 10:11 AM [place] MICROALBUMIN CREATININE RATIO PANEL Spe cimen Type: URINE No comment entered. Ordering Provider: BOY DELONG Report Released Date/Time: Nov 23, 2023 08:33 AM Reporting Lab: [facility] [address] [facility] [address] Performing Lab: [address] [address] MICROALBUMIN/C REATININE RATIO 13.8 mg/g 0-29.9 MICROALBUMIN,Q UANTITATIVE 2.5 mg/dL RR UNAVAIL CREATININE URINE 180.82 mg/dL Jan 06, 2024 10:11 AM [place] URINALYSIS Specimen Type: URINE Comment: If Glucose = >500 and Ketones are positive, please alert the Physician. Ordering Provider: BOY DELONG Report Released Date/Time: Nov 23, 2023 08:33 AM Reporting Lab: [address] [address] Performing Lab: [address] [address] UA COLOR Light-Yellow Yellow UA APPEARANCE Clear Clear UA GLUCOSE Normal mg/dL Negative UA KETONES NEGATIVE mg/dL Negative UA BLOOD NEGATIVE mg/dL Negative UA PROTEIN 10 mg/dL Negative UA NITRITE NEGATIVE mg/dL Negative UA BILIRUBIN NEGATIVE mg/dL Negative UA SPECIFIC GRAVITY 1.024 H 1.016-1.02 2 UA pH 5.5 5.0-9.0 UA UROBILINOGEN Normal mg/dL <2.0 UA LEUKOCYTE NEGATIVE Negative Jan 06, 2024 09:55 AM [place] URIC ACID Specimen Type: SERUM No comment entered. Ordering Provider: BOY DELONG Report Released Date/Time: Nov 23, 2023 08:33 AM Reporting Lab: [address] [address] Performing Lab: [address] [address] URIC ACID 5.7 mg/dL 3.5-7.2 Jan 06, 2024 09:55 AM [place] CALCIUM Specimen Type: SERUM No comment entered. Ordering Provider: BOY DELONG Report Released Date/Time: Nov 23, 2023 08:33 AM Reporting Lab: [facility] [address] [facility] [address] Performing Lab: [facility] [address] [facility] [address] CALCIUM 9.0 mg/dL 8.5-10.2 Jan 06, 2024 09:55 AM [place] BASIC METABOLIC PANEL (fasting) Specime n Type: SERUM No comment entered. Ordering Provider: BOY DELONG Report Released Date/Time: Nov 23, 2023 08:33 AM Reporting Lab: [facility] [address] [facility] [address] Performing Lab: [address] [address] UREA NITROGEN 18 mg/dL 7-25 GLUCOSE 108 mg/dL H 65-100 SODIUM 140 mmol/L 135-145 POTASSIUM 3.9 mmol/L 3.5-5.0 CHLORIDE 111 mmol/L H 100-110 CO2 21 meq/L 20-30 CREATININE, Serum 1.13 mg/dL 0.50-1.40 eGFR(CKD-EPI 2020) 74 mL/min >60 Jan 06, 2024 09:55 AM [place] LIVER FUNCTION Specimen Type: SERUM No comment entered. Ordering Provider: BOY DELONG Report Released Date/Time: Nov 23, 2023 08:33 AM Reporting Lab: [address] [address] Performing Lab: [address] [address] PROTEIN,TOTAL 6.8 g/dL 6.0-8.3 ALBUMIN 3.9 g/dL 3.5-5.0 ALKALINE PHOSPHATASE 66 U/L 40-150 AST 21 U/L 5-34 ALT 34 U/L BILIRUBIN, TOTAL 0.4 mg/dL 0.2-1.2 Jan 06, 2024 09:55 AM [place] LIPID PANEL FASTING Specimen Type: SERUM No comment entered. Ordering Provider: BOY DELONG Report Released Date/Time: Nov 23, 2023 08:33 AM Reporting Lab: [address] [address] Performing Lab: [address] [place] [address] CHOLESTEROL 168 mg/dL TRIGLYCERIDE 70 mg/dL 0-150 LDL calculated 115 mg/dL 0-129 CHOL/HDL 4.3 HDL CHOLESTEROL 39 mg/dL L 40-60 Jan 06, 2024 09:55 AM [place] VITAMIN D (25-OH) Specimen Type: SERUM No comment entered. Ordering Provider: BOY DELONG Report Released Date/Time: Nov 23, 2023 08:33 AM Reporting Lab: [place] [facility] [facility] [address] [facility] [address] Performing Lab: [place] CNTR [facility] [address] [address] VITAMIN D (25-OH) 23 ng/mL 20-50 Jan 06, 2024 09:55 AM [place] FERRITIN Specimen Type: SERUM No comment entered. Ordering Provider: BOY DELONG Report Released Date/Time: Nov 23, 2023 08:33 AM Reporting Lab: [facility] [address] [address] Performing Lab: [place] [facility] [address] [address] FERRITIN 214 ng/mL 20-300 Jan 06, 2024 09:55 AM [place] VITAMIN B12 Specimen Type: SERUM No comment entered. Ordering Provider: BOY DELONG Report Released Date/Time: Nov 23, 2023 08:33 AM Reporting Lab: [place] [facility] TRN [facility] [address] [address] Performing Lab: [facility]TRN [facility]ENTERUSE[address] [address] VITAMIN B12 636 pg/mL 200-900 Jan 06, 2024 09:55 AM [place] PSA Specimen Type: SERUM No comment entered. Ordering Provider: BOY DELONG Report Released Date/Time: Nov 23, 2023 08:33 AM Reporting Lab: [place] [facility] [address] [address] Performing Lab: [facility]TRN [facility]ENTERUSE[address] [address] PSA 1.09 ng/mL 0.00-4.00 Jan 06, 2024 09:55 AM [place] CBC AND DIFF (AUTO) Specimen Type: BLOOD No comment entered. Ordering Provider: BOY DELONG Report Released Date/Time: Nov 23, 2023 08:33 AM Reporting Lab: [facility] [address] [facility] [address] Performing Lab: [facility] [address] [facility] [address] WBC 3.76 10*3/uL L 4.50-11.00 RBC 5.35 [...] 10*3/uL 0.00-0.00 Jan 06, 2024 09:55 AM [place] HEMOGLOBIN A1C PANEL Specimen Type: BLOOD Comment: [...] Nov 23, 2023 08:33 AM Reporting Lab: [facility] [address] [facility] [address] Performing Lab: [address] [address] HEMOGLOBIN A1C 5.5 4.0-5.6 Jan 06, 2024 09:55 AM [place] TSH Specimen Type: SERUM No comment entered. Ordering Provider: BOY DELONG Report Released Date/Time: Nov 23, 2023 08:33 AM Reporting Lab: [address] [address] Performing Lab: [address] [address] TSH 3.01 u[IU]/mL 0.35-5.00 Nov 17, 2023 08:30 AM [facility] CULTURE,BODY FLUID PANEL(C.D.H) Specimen Type: SYNOVIAL FLUID Comment: Refer to CPRS: [place] Imag. Display for Lab Results Ordering Provider: REESE MCFADDEN Report Released Date/Time: Nov 17, 2023 09:15 AM Reporting Lab: [facility] [address] [facility] [address] Performing Lab: [facility] [address] [facility] [address] GRAM STAIN(cdh) comment ANAEROBIC CULTURE(cdh) comment CULTURE,BODY FLUID(cdh) comment Nov 17, 2023 08:30 AM [facility] GLUCOSE, SYNOVIAL (q) Specimen Type: SYNOVIAL FLUID Comment: Synovial fluid glucose values are equivalent to plasma values if obtained from a fasting patient. The difference between the plasma glucose and synovial fluid glucose value should be <10 mg/dL. Test Performed by [place], [facility], [address] [place] [address] Rajesh Doss M.D., Ph.D., Director of Laboratories , [facility] [id number] TEST PERFORMED AT: , Ordering Provider: REESE MCFADDEN Report Released Date/Time: Nov 17, 2023 09:15 AM Reporting Lab: [facility] [address] [facility] [address] Performing Lab: [facility] [address] [facility], [address] [place] [address] GLUCOSE, SYNOVIAL (q) 145 mg/dL Nov 17, 2023 08:30 AM [facility] SYNOVIAL FLUID CRYSTALS PANEL Specimen Type: SYNOVIAL FLUID No comment entered. Ordering Provider: REESE MCFADDEN Report Released Date/Time: Nov 17, 2023 09:24 AM Reporting Lab: [facility] [address] [facility] [address] Performing Lab: [facility]ENTERUSEBRONXCARE [facility] [address] [facility] [address] CRYSTALS,BF Positive Negative MSU CRYSTALS,BF Present Negative MSU CRYSTAL EXTRA,BF Present Negative MSU CRYSTAL INTRA,BF Present Negative Nov 17, 2023 08:30 AM [facility] CELL COUNT (SYNOVIAL FLUID) Specimen Type: SYNOVIAL FLUID Comment: *CRYSTALS Not Performed: Nov 17, 2023@09:25 by [id number] *COLLAR TACKER Reason: see alexis [id number] for results Ordering Provider: REESE MCFADDEN Report Released Date/Time: Nov 17, 2023 09:15 AM Reporting Lab: [facility] [address] [facility] [address] Performing Lab: [facility]ENTERUSEBRONXCARE [facility] [address] [facility] [address] WBC 350 RBC <3000 COLOR Y VOLUME [...] social work intervention atthis time by this board writer. This board writer will remain available to assist Vet if indicated. /ivone/ Ame Hess [facility], [facility] Signed: 12/07/2023 10:36 AME HESS [facility]
--- OUTSIDE RECORDS SUMMARY | 2024-03-02 09:01 | XMS_ITS | Encounter Summary ---
Author Name Department [place] Organization [place] Address [address] [place] [address] Care Team Providers Care Freelance Makeup Artist Name Role Phone BOY DELONG Primary Care [...] RX PRESCRIPT ION HEALT H NEW [facility] Mar 07, 2020 [facility] [id number] MARGARETH HONG RRYL PATIENT Selected Encounter [...] AMBULATORY - PSYCHIATRY [place] [facility] [facility] Nov 11, 2023 11:00 AM AMBULATORY - PSYCHIATRY [place] [facility] [place] [facility] Nov 14, 2023 03:00 PM AMBULATORY - MEDICINE [place] [facility] [place] [facility] Nov 17, 2023 08:00 AM AMBULATORY - MEDICINE [place] [facility] [place] [facility] Jan 06, 2024 10:00 AM [facility]BULATORY - MEDICINE [facility] Jan 10, 2024 11:15 AM AMBULATORY - NONE [place] [facility] [place] [facility] Jan 10, 2024 11:30 AM AMBULATORY - NONE [place] [facility] [place] [facility] Jan 13, 2024 10:00 AM AMBULATORY - PSYCHIATRY [place] [facility] [place] [facility] Jan 13, 2024 01:00 PM AMBULATORY - MEDICINE [place] [facility] [place] [facility] Feb 03, 2024 03:30 PM AMBULATORY - MEDICINE [facility] Mar 01, 2024 11:00 AM AMBULATORY - MEDICINE [place] [facility] [place] [facility] Apr 06, 2024 10:00 AM AMBULATORY - PSYCHIATRY [place] [facility] [place] [facility] Lab Results: +/- 30 days of the encounter This section includes the Chemistry and Hematology Lab Results on record with [place] for the patient. Radiology Reports and Pathology Reports are provided separately, in subsequent sections. Lab Results This section contains the Chemistry/Hematology Results that were resulted 30 days before or 30 daysafter the date of the Encounter. Date/Time Source Result Type Result - Unit Interpretation Reference Range Comment Nov 17, 2023 08:30 AM [place] [facility] [place] [facility] CULTURE,BODY FLUID PANEL(C.D.H) Specimen Type: SYNOVIAL FLUID Comment: Refer to CPRS: [place] Imag. Display for Lab Results Ordering Provider: REESE MCFADDEN Report Released Date/Time: Nov 17, 2023 09:15 AM Reporting Lab: [facility] [address] [facility] [address] Performing Lab: [facility] [address] [facility] [address] GRAM STAIN(cdh) comment ANAEROBIC CULTURE(cdh) comment CULTURE,BODY FLUID(cdh) comment Nov 17, 2023 08:30 AM [facility] GLUCOSE, SYNOVIAL (q) Specimen Type: SYNOVIAL FLUID Comment: Synovial fluid glucose values are equivalent to plasma values if obtained from a fasting patient. The difference between the plasma glucose and synovial fluid glucose value should be <10 mg/dL. Test Performed by [employer], [facility], [address] [place] [address] Rajesh Doss M.D., Ph.D., Director of Laboratories , CLIA [id number] TEST PERFORMED AT: , Ordering Provider: REESE MCFADDEN Report Released Date/Time: Nov 17, 2023 09:15 AM Reporting Lab: [address] [address] Performing Lab: [facility] [address] [address] GLUCOSE, SYNOVIAL (q) 145 mg/dL Nov 17, 2023 08:30 AM [facility] SYNOVIAL FLUID CRYSTALS PANEL Specimen Type: SYNOVIAL FLUID No comment entered. Ordering Provider: REESE MCFADDEN Report Released Date/Time: Nov 17, 2023 09:24 AM Reporting Lab: [facility] [address] [facility] [address] Performing Lab: [facility] [address] [facility] [address] CRYSTALS,BF Positive Negative MSU CRYSTALS,BF Present Negative MSU CRYSTAL EXTRA,BF Present Negative MSU CRYSTAL INTRA,BF Present Negative Nov 17, 2023 08:30 AM [facility] CELL COUNT (SYNOVIAL FLUID) Specimen Type: SYNOVIAL FLUID Comment: *CRYSTALS Not Performed: Nov 17, 2023@09:25 by [id number] *FREEZER OPERATOR Reason: see wrled 2333 for results Ordering Provider: REESE MCFADDEN Report Released Date/Time: Nov 17, 2023 09:15 AM Reporting Lab: [address] [address] Performing Lab: [facility] [address] [facility] [address] WBC 350 RBC <3000 COLOR Y VOLUME [...] TONY BORJA EXP COSIGNER: URGENCY: STATUS: COMPLETED [place] called regarding arrears in rent for approximately 3 months. He stated he went to housing court and was put on a payment plan. he stated he is unable to maintain payment plan of $5000 rental arrears and is looking for assistance. He would like to apply for [employer] voucher but was told that would not cover past expenses. He will stop by [facility] for application /es/ TONY BORJA ADVANCED RANGE MOUNTER Signed: 10/27/2023 11:42 TONY BORJA [place] [facility]
--- OUTSIDE RECORDS SUMMARY | 2024-03-02 09:01 | XMS_ITS ---
Author Name Department of [place] Address [address] [place] [address] Care Team Providers Care Whiskey Proof Reader Name Role Phone BOY DELONG Primary Care [...] RX PRESCRIPT ION HEALT H NEW EN[place] [facility] Mar 07, 2020 [facility] [id number] MARGARETH HONG RRYL PATIENT Selected Encounter [...] 2024 10:00 AM AMBULATORY - MEDICINE [facility] Jan 10, 2024 11:15 AM AMBULATORY - NONE [place] [facility] [place] [facility] Jan 10, 2024 11:30 AM AMBULATORY - NONE [place] [facility] [place] [facility] Jan 13, 2024 10:00 AM AMBULATORY - PSYCHIATRY [place] [facility] [place] [facility] Jan 13, 2024 01:00 PM AMBULATORY - MEDICINE [place] C [place] [facility] Feb 03, 2024 03:30 PM [facility] Mar 01, 2024 11:00 AM AMBULATORY - MEDICINE [place] [facility] Apr 06, 2024 10:00 AM AMBULATORY - PSYCHIATRY [place] [facility] May 14, 2024 10:30 AM AMBULATORY - MEDICINE [place] [facility] Active, Pending, and Scheduled Orders This section includes a listing of several types of active, pending, and scheduled orders, including clinic medications orders, diagnostic test orders, procedure orders and consult orders; where the start date of the order is 45 days before the date of the Encounter or 45 days after the date of theEncounter. The data comes from all [place] treatment facilities. Test Date/Time Test Type Test Details Facility Name Jan 13, 2024 01:37 PM Consult Order [facility] Cons Business Programmer's Choice [facility] Lab Results: +/- 30 days of [...] Range Comment Nov 17, 2023 08:30 AM [facility] CULTURE,BODY FLUID PANEL(C.D.H) Specimen Type: SYNOVIAL FLUID Comment: Refer to CPRS: [place] Imag. Display for Lab Results Ordering Provider: REESE MCFADDEN Report Released Date/Time: Nov 17, 2023 09:15 AM Reporting Lab: [facility] [address] [facility] [address] Performing Lab: [facility] [address] [facility] [address] GRAM STAIN(cdh) comment ANAEROBIC CULTURE(cdh) comment CULTURE,BODY FLUID(cdh) comment Nov 17, 2023 08:30 AM [facility] GLUCOSE, SYNOVIAL (q) Specimen Type: SYNOVIAL FLUID Comment: Synovial fluid glucose values are equivalent to plasma values if obtained from a fasting patient. The difference between the plasma glucose and synovial fluid glucose value should be <10 mg/dL. Test Performed by [employer], [facility], [address] [place] [address] Rajesh Doss M.D., Ph.D., Director of Laboratories , CLIA [id number] TEST PERFORMED AT: , Ordering Provider: REESE MCFADDEN Report Released Date/Time: Nov 17, 2023 09:15 AM Reporting Lab: [facility] [address] [facility] [address] Performing Lab: [facility] [address] [address] GLUCOSE, SYNOVIAL (q) 145 mg/dL Nov 17, 2023 08:30 AM [facility] SYNOVIAL FLUID CRYSTALS PANEL Specimen Type: SYNOVIAL FLUID No comment entered. Ordering Provider: REESE MCFADDEN Report Released Date/Time: Nov 17, 2023 09:24 AM Reporting Lab: [facility] [address] [facility] [address] Performing Lab: [facility] [address] [facility] [address] CRYSTALS,BF Positive Negative MSU CRYSTALS,BF Present Negative MSU CRYSTAL EXTRA,BF Present Negative MSU CRYSTAL INTRA,BF Present Negative Nov 17, 2023 08:30 AM [facility] CELL COUNT (SYNOVIAL FLUID) Specimen Type: SYNOVIAL FLUID Comment: *CRYSTALS Not Performed: Nov 17, 2023@09:25 by [id number] *ANTIQUE AUTO MUSEUM MAINTENANCE WORKER Reason: see wrled [id number] for results Ordering Provider: REESE MCFADDEN Report Released Date/Time: Nov 17, 2023 09:15 AM Reporting Lab: [facility] [address] [facility] [address] Performing Lab: [facility] [address] [facility] [address] WBC 350 RBC <3000 COLOR Y VOLUME [...] NOTE Vet no showed for appt. This hand sign writer will follow up with Roderick arias [employer]. and remain available to meet w/ him prn. /ivone/ Ame Hess, [facility], [facility] Signed: 12/06/2023 09:30 AME HESS [facility]
--- OUTSIDE RECORDS SUMMARY | 2024-03-02 09:01 | XMS_ITS | Encounter Summary ---
Author Name Department [place] Organization [place] Address [address] [place] [address] Care Team Providers Care Brake Lining Curer Name Role Phone BOY DELONG Primary Care [...] ENGL [facility] Mar 07, 2020 [facility] [id number] MARGARETH HONG RRYL PATIENT Selected Encounter This section includes the information on record at [place] for the Encounter. Date/Time Encounter Type Encounter [...] 20 appointments. The data comes from all [place] treatment facilities. Appointment Date/Time Appointment Type Appointme nt Facility Name Aug 11, 2023 10:40 AM AMBULATORY - MEDICINE [place] [facility] Aug 19, 2023 10:00 AM AMBULATORY - REHAB MEDICIN [facility] [place] Sep 09, 2023 09:30 AM AMBULATORY - PSYCHIATRY [place] [facility] [place] [facility] Oct 14, 2023 09:30 AM AMBULATORY - PSYCHIATRY [place] [facility] [place] [facility] Oct 28, 2023 10:00 AM AMBULATORY [...] 2024 03:30 PM [facility] Encounter Notes: All associated encounter notes [...] REQUIRED Electronically Filed: 11/01/2023 by: ROSHAN UMANZOR [place] [facility] [facility]
--- OUTSIDE RECORDS SUMMARY | 2024-03-02 09:01 | XMS_ITS | Encounter Summary ---
Author Name Department of [place]a [place] Address [address] [place] [address] Care Team Providers Care Telegraphic Typewriter Operator Name Role Phone BOY DELONG Primary [...] ENGL [facility] Mar 07, 2020 [facility] [id number] MARGARETH HONG RRYL PATIENT Selected Encounter This section includes the information on record at [place] for the Encounter. Date/Time Encounter Type Encounter Description Reason Pro vider Source Nov 17, 2023 08:18 AM Outpatient Encounter EVENT (HISTORICAL) IHE Encounter Template Text not used by [place] Plan of Treatment: Future Appointments (+ 6 [...] 20 appointments. The data comes from all [place] treatment facilities. Appointment Date/Time Appointment Type Appointme nt Facility Name Jan 06, 2024 10:00 AM AMBULATORY - MEDICINE [facility] Jan 10, 2024 11:15 AM AMBULATORY - NONE [place] [facility] [place] [facility] Jan 10, 2024 11:30 AM AMBULATORY - NONE [place] [facility] [place] [facility] Jan 13, 2024 10:00 AM AMBULATORY - PSYCHIATRY [facility] [place] [facility] Jan 13, 2024 01:00 PM AMBULATORY - MEDICINE [place] [facility] Feb 03, 2024 03:30 PM [facility] Mar 01, 2024 11:00 AM AMBULATORY - MEDICINE [place] [facility] Apr 06, 2024 10:00 AM AMBULATORY - PSYCHIATRY [place] [facility] May 14, 2024 10:30 AM AMBULATORY - MEDICINE [place] [facility] Lab Results: +/- 30 days of the encounter This section includes the Chemistry and Hematology Lab Results on record with [place] for the patient. Radiology Reports and Pathology Reports are provided separately, in subsequent sections. Lab Results This section contains the Chemistry/Hematology Results that were resulted 30 days before or 30 daysafter the date of the Encounter. Date/Time Source Result Type Result - Unit Interpretation Reference Range Comment Nov 17, 2023 08:30 AM [facility] CULTURE,BODY FLUID PANEL(C.D.H) Specimen Type: SYNOVIAL FLUID Comment: Refer to CPRS: [place] Imag. Display for Lab Results Ordering Provider: REESE MCFADDEN Report Released Date/Time: Nov 17, 2023 09:15 AM Reporting Lab: [place] [facility] [address] [facility] [address] Performing Lab: [place] [facility] [address] [facility] [address] GRAM STAIN(cdh) comment ANAEROBIC CULTURE(cdh) comment CULTURE,BODY FLUID(cdh) comment Nov 17, 2023 08:30 AM [facility] GLUCOSE, SYNOVIAL (q) Specimen Type: SYNOVIAL FLUID Comment: Synovial fluid glucose values are equivalent to plasma values if obtained from a fasting patient. The difference between the plasma glucose and synovial fluid glucose value should be <10 mg/dL. Test Performed by [facility], [address] [place], [place] Rajesh Doss M.D., Ph.D., Director of Laboratories , CLIA [id number] TEST PERFORMED AT: , Ordering Provider: REESE MCFADDEN Report Released Date/Time: Nov 17, 2023 09:15 AM Reporting Lab: [facility] [place] [facility] [address] [facility] [address] Performing Lab: [facility] [place] [facility] [address] [facility], [address] [place] [address] GLUCOSE, SYNOVIAL (q) 145 mg/dL Nov 17, 2023 08:30 AM [facility] SYNOVIAL FLUID CRYSTALS PANEL Specimen Type: SYNOVIAL FLUID No comment entered. Ordering Provider: REESE MCFADDEN Report Released Date/Time: Nov 17, 2023 09:24 AM Reporting Lab: [facility] [place] [facility] [address] [facility] [address] Performing Lab: [facility] [place] [facility] [address] [facility] [address] CRYSTALS,BF Positive Negative MSU CRYSTALS,BF Present Negative MSU CRYSTAL EXTRA,BF Present Negative MSU CRYSTAL INTRA,BF Present Negative Nov 17, 2023 08:30 AM [facility] CELL COUNT (SYNOVIAL FLUID) Specimen Type: SYNOVIAL FLUID Comment: *CRYSTALS Not Performed: Nov 17, 2023@09:25 by [id number] *FIELD PROJECT MANAGER Reason: see wrled 7312 for results Ordering Provider: REESE MCFADDEN Report Released Date/Time: Nov 17, 2023 09:15 AM Reporting Lab: [facility] [place] [facility] [address] [facility] [address] Performing Lab: [facility]TONTRN [facility] [address] [facility] [address] WBC 350 RBC <3000 COLOR Y VOLUME 2ml mL APPEARANCE C NUCLEATED CELL # comment [phone]
--- OUTSIDE RECORDS SUMMARY | 2024-03-02 09:01 | XMS_ITS | Encounter Summary ---
Author Name Department [place] Organization [place] Address [address] [place] [address] Care Team Providers Care Senior It Specialist Name Role Phone BOY DELONG Primary [...] OPTUM RX PRESCRIPT ION HEALT H [facility] Mar 07, 2020 [facility] [id number] MARGARETH HONG RRYL PATIENT Selected Encounter This section includes the information on record at [place] for the Encounter. Date/Time Encounter Type Encounter Description Reason Provider Source Oct 28, 2023 10:00 AM [facility] BY PHARM ADDL [facility] - IND ICD-10-CM F32.1 Major depressive disorder, single episode, moderate PRETTY MEEHAN Rosibel Encounter Template Text not used by [place] Assessments - Encounter Diagnoses This section includes the primary and secondary diagnoses documented for the Encounter. Date/Time Primary/Secondary Diagnosis Diagnosis Name Provider Source Oct 31, 2023 10:26 AM PRIMARY Major depressive disorder, single episode, moderate [facility]Y M[facility]HAN [facility] Plan of Treatment: Future Appointments (+ 6 months) and Future Tests (+/- 45 days) The Plan of Treatment section includes future care activities for the patient from all [place] treatmentvencor hospital. This section includes future appointments [...] 11, 2023 11:00 AM AMBULATORY - PSYCHIATRY [place] [facility] Nov 14, 2023 03:00 PM AMBULATORY - MEDICINE [place] C [place] [facility] Nov 17, 2023 08:00 AM AMBULATORY - MEDICINE [place] C [place] [facility] Jan 06, 2024 10:00 AM AMBULATORY - MEDICINE [facility] Jan 10, 2024 11:15 AM AMBULATORY - NONE [place] [facility] Jan 10, 2024 11:30 AM AMBULATORY NONE [place] [facility] Jan 13, 2024 10:00 AM AMBULATORY - PSYCHIATRY [place] [facility] Jan 13, 2024 01:00 PM AMBULATORY - MEDICINE [place] C [place] [facility] Feb 03, 2024 03:30 PM AMBULATORY - MEDICINE [facility] Mar 01, 2024 11:00 AM AMBULATORY - MEDICINE [place] C [place] [facility] Apr 06, 2024 10:00 AM AMBUL[facility] Lab Results: +/- 30 days of [...] 2023 08:30 AM [place] [facility] [facility] CULTURE,BODY FLUID PANEL(C.D.H) Specimen Type: SYNOVIAL FLUID Comment: Refer to CPRS: [place] Imag. Display for Lab Results Ordering Provider: REESE MCFADDEN Report Released Date/Time: Nov 17, 2023 09:15 AM Reporting Lab: [facility] [address] [facility] [address] Performing Lab: [facility] [address] [facility] [address] GRAM STAIN(cdh) comment ANAEROBIC CULTURE(cdh) comment CULTURE,BODY FLUID(cdh) comment Nov 17, 2023 08:30 AM [facility] GLUCOSE, SYNOVIAL (q) Specimen Type: SYNOVIAL FLUID Comment: Synovial fluid glucose values are equivalent to plasma values if obtained from a fasting patient. The difference between the plasma glucose and synovial fluid glucose value should be <10 mg/dL. Test Performed by [facility], [facility] [place] [place], [address] [place] [address] Rajesh Doss M.D., Ph.D., Director of Laboratories , CLIA [id number] TEST PERFORMED AT: , Ordering Provider: REESE MCFADDEN Report Released Date/Time: Nov 17, 2023 09:15 AM Reporting Lab: [facility] [address] [facility] [address] Performing Lab: [place] [id number] [address] GLUCOSE, SYNOVIAL (q) 145 mg/dL Nov 17, 2023 08:30 AM [facility] SYNOVIAL FLUID CRYSTALS PANEL Specimen Type: SYNOVIAL FLUID No comment entered. Ordering Provider: RESEE MCFADDEN Report Released Date/Time: Nov 17, 2023 09:24 AM Reporting Lab: [facility] [address] [facility] [address] Performing Lab: [facility] [address] [facility] [address] CRYSTALS,BF Positive Negative MSU CRYSTALS,BF Present Negative MSU CRYSTAL EXTRA,BF Present Negative MSU CRYSTAL INTRA,BF Present Negative Nov 17, 2023 08:30 AM [facility] CELL COUNT (SYNOVIAL FLUID) Specimen Type: SYNOVIAL FLUID Comment: *CRYSTALS Not Performed: Nov 17, 2023@09:25 by [id number] *TUBE MAN Reason: see wrled 7414 for results Ordering Provider: REESE MCFADDEN Report Released Date/Time: Nov 17, 2023 09:15 AM Reporting Lab: [facility] [address] [facility] [address] Performing Lab: [facility] [address] [facility] [address] WBC 350 RBC <3000 COLOR Y VOLUME [...] Resources Only: E911 (Emergency Call Relay Center): [phone] [facility] Crisis Line - 988 then press #1. [facility] Suicide Coordinator [phone], Ext. [phone]; Back-up Ext. [phone] [place] Police, [place] Val[place] [phone] Introduction: Visit is being conducted by [place] [employer]. identified with 2 identifiers: [X] Full Name [X] Date of [ ] [place] ID Card Emergency Plan: [place] confirmed and/or provided the following information in case of emergency or technology failure. PATIENT PHONE - PHONE NUMBER [CELLULAR] - NONE FOUND Is patient phone number correct, if not, enter below: [facility] [place]'s phone number: LUPILLO HONG [address], [place], [address] 's present location and address for appointment: at home 's emergency contact name and phone number: on file [place] reported that location is private and safe: Yes Informed Consent: [facility] [place] informed of the risks and benefits of Telehealth video care. has the right to refuse video services. If refuses video visit, a [id number] visit will be scheduled. [place] verbalized consent for this video visit: Yes [place] provided consent for any other persons present [...] 62yo BLACK OR MALE -=-=-=-=-=-=-=-=-=-=-=-=-=-=- =-=-=-=-=-==-=-=-=-=-=-=-=-=- =-=-=-=-=-=Subjective- [place] was last seen on [id number] with the [...] regimen. mentions plan to start therapy soon. [place] reports the following regarding medications: -N--Y- [X][ [...] following review of all active psychotropic and ADULT REMEDIAL EDUCATION INSTRUCTOR-active agents is to ensure pharmacotherapy is evaluated [...] every 8-12weeks Next Apt: TBD was provided appeals writer's contact information and instructed to contact appeals writer as needed for any changes to scheduling or concerns otherwise. [place] is aware of actions to take if they feel unsafe, including calling the 's Crisis Line (#[phone]); calling 911; or going to the nearest urgent care or emergency room. The is also aware of how to contact the clinic should the require additional services prior to the next appointment. Time spent on chart review, session, and documentation: 30minutes /es/ Dieudonne Meehan PharmD Clinical Pharmacist Practitioner Signed: 10/31/2023 10:54 DIEUDONNE MEEHAN [facility]
--- OUTSIDE RECORDS SUMMARY | 2024-03-02 09:01 | XMS_ITS | Encounter Summary ---
Author Name [facility] [place] Address [address] [place] [address] Care Team Providers Care Paper Reclaiming Machine Operator Name Role Phone BOY DELONG Primary [...] OPTUM RX PRESCRIPT ION HEALT H [facility] Mar 07, 2020 [facility] [id number] MARGARETH HONG RRYL PATIENT Selected Encounter This section includes the information on record at [place] for the Encounter. Date/Time Encounter Type Encounter Description Reason Provider Source Nov 17, 2023 08:00 AM OFFICE O/P EST LOW 20 MIN PM&RS PHYSICIAN ICD-10-CM M17.0 Bilateral primary osteoarthritis of knee NNAMDI ERIC E Encounter Template Text not used by [place] Assessments - Encounter Diagnoses This section includes the primary and secondary diagnoses documented for the Encounter. Date/Time Primary/Secondary Diagnosis Diagnosis Name Provider Source Nov 17, 2023 08:46 AM PRIMARY Bilateral primary osteoarthritis of knee NNAMDI ERIC [place] [facility] [place] [facility] Plan of Treatment: Future Appointments (+ 6 months) and Future Tests (+/- 45 days) The Plan of Treatment section includes future care activities for the patient from all [place] [facility]. This section includes future appointments and [...] 10, 2024 11:15 AM AMBULATORY - NONE [place] [facility] [place] [facility] Jan 10, 2024 11:30 AM AMBULATORY - NONE [facility] [place] [facility] Jan 13, 2024 10:00 AM AMBULATORY - PSYCHIATRY [place] [facility] [place] [facility] Jan 13, 2024 01:00 PM AMBULATORY - MEDICINE [place] [facility] [place] [facility] Feb 03, 2024 03:30 PM AMBULATORY - MEDICINE [facility] Mar 01, 2024 11:00 AM AMBULATORY - MEDICINE [place] [facility] [place] [facility] Apr 06, 2024 10:00 AM AMBULATORY - PSYCHIATRY [facility] [place] [facility] May 14, 2024 10:30 AM AMBULATORY - MEDICINE [place] [facility] [place] [facility] Lab Results: +/- 30 days of [...] 2023 08:30 AM [place] [facility] [place] [facility] CULTURE,BODY FLUID PANEL(C.D.H) Specimen Type: SYNOVIAL FLUID Comment: Refer to CPRS: [place] [employer] Display for Lab Results Ordering Provider: REESE ERIC Report Released Date/Time: Nov 17, 2023 09:15 AM Reporting Lab: [facility] [address] [facility] [address] [facility]forming Lab: [facility] [address] [facility] [address] GRAM STAIN(cdh) comment ANAEROBIC CULTURE(cdh) comment CULTURE,BODY FLUID(cdh) comment Nov 17, 2023 08:30 AM [facility] GLUCOSE, SYNOVIAL (q) Specimen Type: SYNOVIAL FLUID Comment: Synovial fluid glucose values are equivalent to plasma values if obtained from a fasting patient. The difference between the plasma glucose and synovial fluid glucose value should be <10 mg/dL. Test Performed by [facility], [facility], [address] [place] [address] Rajesh Doss M.D., Ph.D., Director of Laboratories , CLIA [id number] TEST PERFORMED AT: , Ordering Provider: REESE ERIC Report Released Date/Time: Nov 17, 2023 09:15 AM Reporting Lab: [address] [address] Performing Lab: [facility] [address] [address] GLUCOSE, SYNOVIAL (q) 145 mg/dL Nov 17, 2023 08:30 AM [facility] SYNOVIAL FLUID CRYSTALS PANEL Specimen Type: SYNOVIAL FLUID No comment entered. Ordering Provider: REESE ERIC Report Released Date/Time: Nov 17, 2023 09:24 AM Reporting Lab: [address] [address] Performing Lab: [facility] [address] [facility] [address] CRYSTALS,BF Positive Negative MSU CRYSTALS,BF Present Negative MSU CRYSTAL EXTRA,BF Present Negative MSU CRYSTAL INTRA,BF Present Negative Nov 17, 2023 08:30 AM [facility] CELL COUNT (SYNOVIAL FLUID) Specimen Type: SYNOVIAL FLUID Comment: *CRYSTALS Not Performed: Nov 17, 2023@09:25 by [id number] *STEAMBOAT INSPECTOR Reason: see wrled [id number] for results Ordering Provider: REESE ERIC Report Released Date/Time: Nov 17, 2023 09:15 AM Reporting Lab: [address] [address] Performing Lab: [facility] [address] [facility] [address] WBC 350 RBC <3000 COLOR Y VOLUME [...] for acute and chronic treatment. /ivone/ SOTERO ESPINALJessica Signed: 11/23/2023 08:02 Receipt Acknowledged By: 11/23/2023 08:33 /ivone/ BOY DELONG PA-C STAFF PHYSICIAN MAT LINKER --- Original Document --- 11/17/23 PM&R BACK/JOINT PROCEDURE NOTE: PROCEDURE: Bilateral intra-articular knee injection with hyluronic Acid, Durolane INDICATION: Knee pain.Osteoarthritis ANESTHESIA: None. INFORMED CONSENT: Obtained verbally, and through IM[facility]. [place] had 2 events over the past month [...] STAFF NAME: Mya Grewal RN Lot #: [id number] Exp: 2026-03-06 The procedure was performed with [...] of active outpatient prescriptions dispensed from this [place] (local) and dispensed from another [place] or [facility] facility (remote) as well as inpatient orders [...] list may not be complete. Please check JLfitaborate. Allergies/ADRs (Tool #5) FACILITY ALLERGY/ADR -------- No Remote Allergy/ADR Data available for this patient [place] [facility] [place] [facility] No Known Allergies Med [facility] (Tool #1) INCLUDED IN THIS LIST: Alphabetical list of active outpatient prescriptions dispensed from this [facility] (local) and dispensed from another [place] or [facility] facility (remote) as well as [...] the patient into personal health records (i.e. Xymogen) are NOT included in this list. Non-VA medications documented outside this [place], remote inpatient orders (regardless of status) and remote clinic medications are NOT included in this list. The patient and provider must always discuss medications the patient is taking, regardless of where the medication was dispensed or obtained. OUTPT ALBUTEROL 90MCG ([facility]) 200D ORAL INHL (Status = Active) INHALE 1 PUFF BY MOUTH ONCE DAILY NEEDED FOR BRONCHOSPASM Rx# [id number] Last Released: 06/10/23 Qty/Days Supply: 04/05 Rx Expiration Date: 06/10/24 Refills Remainin Indication: FOR BRONCHOSPASM OUTPT AMLODIPINE BESYLATE 10MG TAB (Status = Active) TAKE ONE TABLET BY MOUTH ONCE DAILY FOR BLOOD PRESSURE/HEART, DO NOT TAKE WITH GRAPEFRUIT JUICE Rx# [id number] Last Released: 08/09/23 Qty/Days Supply: Rx Expiration Date: 04/04/24 Refills Remainin OUTPT CELECOXIB 200MG CAP (Status = Active) TAKE ONE CAPSULE BY MOUTH TWICE DAILY NEEDED FOR RHEUMATOID ARTHRITIS Rx# [id number] Last Released: 08/11/23 Qty/Days Supply: Rx Expiration Date: 08/09/24 Refills Remainin Indication: FOR RHEUMATOID ARTHRITIS OUTPT DOXEPIN 3MG TAB (Status = Active) TAKE ONE TABLET BY MOUTH AT BEDTIME NEEDED FOR INSOMNIA Rx# [id number] Last Released: 09/19/23 Qty/Days Supply: Rx Expiration Date: 09/09/24 Refills Remainin Indication: FOR CHRONIC TROUBLE SLEEPING OUTPT HYALURONATE NA (DUROLANE)20MG/ML SYR 3ML (Status = Active) INJECT 60MG INTRA-ARTICULAR ONE TIME OSTEOARTHRITIS OF THE KNEE Rx# [id number] Last Released: 11/09/23 Qty/Days Supply: Rx Expiration Date: 04/01/24 Refills Remainin Indication: OSTEOARTHRITIS OF THE KNEE OUTPT HYDROCHLOROTHIAZIDE 25MG TAB (Status = Active) TAKE ONE-HALF TABLET BY MOUTH ONCE DAILY Rx# [id number] Last Released: 04/04/23 Qty/Days Supply: Rx Expiration Date: 04/04/24 Refills Remainin Indication: FOR HIGH BLOOD PRESSURE OUTPT LORATADINE 10MG TAB (Status = Active) TAKE ONE TABLET BY MOUTH ONCE DAILY FOR ALLERGY Rx# [id number] Last Released: 09/30/23 Qty/Days Supply: Rx Expiration Date: 06/10/24 Refills Remainin Indication: FOR ALLERGY OUTPT LOSARTAN 25MG TAB (Status = ) TAKE ONE TABLET BY MOUTH ONCE DAILY FOR BLOOD PRESSURE/HEART Rx# [id number] Last Released: 08/20/23 Qty/Days Supply: Rx Expiration Date: 09/08/23 Refills Remainin Indication: FOR HIGH BLOOD PRESSURE OUTPT MULTIVITAMIN CAP/TAB (Status = Active) TAKE 1 TABLET BY MOUTH ONCE DAILY FOR VITAMIN SUPPLEMENTATION Rx# [id number] Last Released: 11/01/23 Qty/Days Supply: Rx Expiration Date: 10/28/24 Refills Remainin Indication: FOR VITAMIN SUPPLEMENTATION OUTPT SERTRALINE HCL 100MG TAB (Status = Discontinued) TAKE ONE-HALF TABLET BY MOUTH ONCE DAILY FOR MAJOR DEPRESSIVE DISORDER Rx# [id number] Last Released: 09/15/23 Qty/Days Supply: Rx Expiration Date: 09/09/24 Refills Remainin Indication: FOR MAJOR DEPRESSIVE DISORDER OUTPT SERTRALINE HCL 100MG TAB (Status = Active) TAKE ONE-HALF TABLET BY MOUTH ONCE DAILY FOR MAJOR DEPRESSIVE DISORDER Rx# [id number] Last Released: 11/01/23 Qty/Days Supply: Rx Expiration Date: 10/28/24 Refills Remainin Indication: FOR MAJOR DEPRESSIVE DISORDER OUTPT SERTRALINE HCL 50MG TAB (Status = Discontinued) TAKE ONE-HALF TABLET BY MOUTH ONCE DAILY FOR MAJOR DEPRESSIVE DISORDER Rx# [id number] Last Released: 08/11/23 Qty/Days Supply: Rx Expiration [...] THAN ONE TABLET AT ONE TIME Rx# [id number] Last Released: 07/27/23 Qty/Days Supply: 09/03 Rx Expiration Date: 07/25/24 Refills Remainin Indication: FOR ERECTILE DYSFUNCTION SUPPLIES OUTPT MEDICATION ORGANIZER 7DAY/2 SLOT (Status = Active) USE 1 ORGANIZER DIRECTED DIRECTED BY PROVIDER Rx# [id number] Last Released: 09/13/23 Qty/Days Supply: Rx Expiration Date: 12/08/23 Refills Remainin /HIEN Vickers Signed: 11/17/2023 08:46 11/23/2023 ADDENDUM STATUS: COMPLETED Knee aspirate SYNOVIAL FLUID CRYSTALS PANEL SYNOVIAL SP LB #[id number] Collection time: Nov 17, 2023@08:30 Test Name Result Units Range --------- ------ ----- ----- CRYSTALS,BF Positive Ref: Negative MSU CRYSTALS,BF Present Ref: Negative MSU CRYSTAL EXTRA,BF Present Ref: Negative MSU CRYSTAL INTRA,BF Present Ref: Negative Will inform PCP to initiate treatment for gout. He does have tricompratmental arthritis secondarily. /HIEN Vickers Signed: 11/23/2023 07:59 SOTERO ERIC [facility] [place] [facility] Nov 17, 2023 [...] correctly stated: [X]Full name: LUPILLO HONG [X]Last #: [id number] [X]: Oct PROVIDER NAME: Sotero Eric PA-c STAFF NAME: Mya Grewal RN Lot #: [id number] Exp: 2026-03-06 The procedure was performed with [...] this [facility] (local) and dispensed from another [place] or [facility] facility (remote) as well as [...] Remote Allergy/ADR Data available for this patient [place] [facility] [place] [facility] No Known Allergies Med Recon NoGloary (Tool #1) INCLUDED IN THIS LIST: Alphabetical list of active outpatient prescriptions dispensed from this [place] (local) and dispensed from another [place] or [facility] facility (remote) as well as [...] the patient into personal health records (i.e. Xymogen) are NOT included in this list. Non-VA medications documented outside this [place], remote inpatient orders (regardless of status) and remote clinic medications are NOT included in this list. The patient and provider must always discuss medications the patient is taking, regardless of where the medication was dispensed or obtained. OUTPT ALBUTEROL 90MCG ([facility]) 200D ORAL INHL (Status = Active) INHALE 1 PUFF BY MOUTH ONCE DAILY NEEDED FOR BRONCHOSPASM Rx# [id number] Last Released: 06/10/23 Qty/Days Supply: 04/05 Rx Expiration Date: 06/10/24 Refills Remainin Indication: FOR BRONCHOSPASM OUTPT AMLODIPINE BESYLATE 10MG TAB (Status = Active) TAKE ONE TABLET BY MOUTH ONCE DAILY FOR BLOOD PRESSURE/HEART, DO NOT TAKE WITH GRAPEFRUIT JUICE Rx# [id number] Last Released: 08/09/23 Qty/Days Supply: Rx Expiration Date: 04/04/24 Refills Remainin OUTPT CELECOXIB 200MG CAP (Status = Active) TAKE ONE CAPSULE BY MOUTH TWICE DAILY NEEDED FOR RHEUMATOID ARTHRITIS Rx# [id number] Last Released: 08/11/23 Qty/Days Supply: Rx Expiration Date: 08/09/24 Refills Remainin Indication: FOR RHEUMATOID ARTHRITIS OUTPT DOXEPIN 3MG TAB (Status = Active) TAKE ONE TABLET BY MOUTH AT BEDTIME NEEDED FOR INSOMNIA Rx# [id number] Last Released: 09/19/23 Qty/Days Supply: Rx Expiration Date: 09/09/24 Refills Remainin Indication: FOR CHRONIC TROUBLE SLEEPING OUTPT HYALURONATE NA (DUROLANE)20MG/ML SYR 3ML (Status = Active) INJECT 60MG INTRA-ARTICULAR ONE TIME OSTEOARTHRITIS OF THE KNEE Rx# [id number] Last Released: 11/09/23 Qty/Days Supply: Rx Expiration Date: 04/01/24 Refills Remainin Indication: OSTEOARTHRITIS OF THE KNEE OUTPT HYDROCHLOROTHIAZIDE 25MG TAB (Status = Active) TAKE ONE-HALF TABLET BY MOUTH ONCE DAILY Rx# [id number] Last Released: 04/04/23 Qty/Days Supply: Rx Expiration Date: 04/04/24 Refills Remainin Indication: FOR HIGH BLOOD PRESSURE OUTPT LORATADINE 10MG TAB (Status = Active) TAKE ONE TABLET BY MOUTH ONCE DAILY FOR ALLERGY Rx# [id number] Last Released: 09/30/23 Qty/Days Supply: Rx Expiration Date: 06/10/24 Refills Remainin Indication: FOR ALLERGY OUTPT LOSARTAN 25MG TAB (Status = ) TAKE ONE TABLET BY MOUTH ONCE DAILY FOR BLOOD PRESSURE/HEART Rx# [id number] Last Released: 08/20/23 Qty/Days Supply: Rx Expiration Date: 09/08/23 Refills Remainin Indication: FOR HIGH BLOOD PRESSURE OUTPT MULTIVITAMIN CAP/TAB (Status = Active) TAKE 1 TABLET BY MOUTH ONCE DAILY FOR VITAMIN SUPPLEMENTATION Rx# [id number] Last Released: 11/01/23 Qty/Days Supply: Rx Expiration Date: 10/28/24 Refills Remainin Indication: FOR VITAMIN SUPPLEMENTATION OUTPT SERTRALINE HCL 100MG TAB (Status = Discontinued) TAKE ONE-HALF TABLET BY MOUTH ONCE DAILY FOR MAJOR DEPRESSIVE DISORDER Rx# [id number] Last Released: 09/15/23 Qty/Days Supply: Rx Expiration Date: 09/09/24 Refills Remainin Indication: FOR MAJOR DEPRESSIVE DISORDER OUTPT SERTRALINE HCL 100MG TAB (Status = Active) TAKE ONE-HALF TABLET BY MOUTH ONCE DAILY FOR MAJOR DEPRESSIVE DISORDER Rx# [id number] Last Released: 11/01/23 Qty/Days Supply: Rx Expiration Date: 10/28/24 Refills Remainin Indication: FOR MAJOR DEPRESSIVE DISORDER OUTPT SERTRALINE HCL 50MG TAB (Status = Discontinued) TAKE ONE-HALF TABLET BY MOUTH ONCE DAILY FOR MAJOR DEPRESSIVE DISORDER Rx# [id number] Last Released: 08/11/23 Qty/Days Supply: Rx Expiration [...] THAN ONE TABLET AT ONE TIME Rx# [id number] Last Released: 07/27/23 Qty/Days Supply: 09/03 Rx Expiration Date: 07/25/24 Refills Remainin Indication: FOR ERECTILE DYSFUNCTION SUPPLIES OUTPT MEDICATION ORGANIZER 7DAY/2 SLOT (Status = Active) USE 1 ORGANIZER DIRECTED DIRECTED BY PROVIDER Rx# [id number] Last Released: 09/13/23 Qty/Days Supply: Rx Expiration Date: 12/08/23 Refills Remainin /HIEN Vickers Signed: 11/17/2023 08:46 11/23/2023 ADDENDUM STATUS: COMPLETED Knee aspirate SYNOVIAL FLUID CRYSTALS PANEL SYNOVIAL SP LB #[id number] Collection time: Nov 17, 2023@08:30 Test Name [...] AWAITING SIGNATURE * BOY DELONG DANIEL L [facility]
--- OUTSIDE RECORDS SUMMARY | 2024-03-02 09:01 | XMS_ITS ---
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 Date/Time Encounter Type Encounter Description Reason Provider Source Oct 28, 2023 02:26 PM PT EDUCATION NOC INDIVID HCHV/HCMI INDIV ICD-10-CM Z59.819 Housing instability, housed unspecified AME HESS Rosibel Encounter Template Text not used by [place] Assessments - Encounter Diagnoses This section includes the primary and secondary diagnoses documented for the Encounter. Date/Time Primary/Secondary Diagnosis Diagnosis Name Provider Source Oct 30, 2023 02:34 PM PRIMARY Housing instability, housed unspecified AME HESS [facility] [place] [facility] Plan of Treatment: Future Appointments (+ 6 months) and Future Tests (+/- 45 days) The Plan of Treatment section includes future care activities for the patient from all [place] treatmentfacilities. This section includes future appointments and future orders which are active, pending or scheduled. Future Appointments This section includes appointments that were scheduled to occur 6 months from the date of the Encounter, up to a maximum of 20 appointments. The data comes from all [place] treatment facilities. Appointment Date/Time Appointment Type Appointme nt Facility Name Nov 11, 2023 11:00 AM AMBULATORY - PSYCHIATRY [place] [facility] [place] [facility] Nov 14, 2023 03:00 PM AMBULATORY - MEDICINE [place] [facility] [place] [facility] Nov 17, 2023 08:00 AM AMBULATORY - MEDICINE [place] [facility] [place] [facility] Jan 06, 2024 10:00 AM AMBULATORY - MEDICINE [facility] Jan 10, 2024 11:15 AM AMBULATORY - NONE [place] [facility] [place] [facility] Jan 10, 2024 11:30 AM AMBULATORY - NONE [place] [facility] [place] [facility] Jan 13, 2024 10:00 AM AMBULATORY - PSYCHIATRY [place] [facility] [place] [facility] Jan 13, 2024 01:00 PM AMBULATORY - MEDICINE [place] [facility] [place] [facility] Feb 03, 2024 03:30 PM AMBULATORY - MEDICINE [facility] Mar 01, 2024 11:00 AM [facility] [place] [facility] Apr 06, 2024 10:00 AM [facility] Lab Results: +/- 30 days of the [...] Range Comment Nov 17, 2023 08:30 AM [facility] CULTURE,BODY FLUID PANEL(C.D.H) Specimen Type: SYNOVIAL FLUID Comment: Refer to CPRS: [place] Imag. Display for Lab Results Ordering Provider: REESE MCFADDEN Report Released Date/Time: Nov 17, 2023 09:15 AM Reporting Lab: [facility] [place] [facility] [address] [facility] [facility] [address] Performing Lab: [facility] [address] [facility] [id number] GRAM STAIN(cdh) comment ANAEROBIC CULTURE(cdh) comment CULTURE,BODY FLUID(cdh) comment Nov 17, 2023 08:30 AM [facility] GLUCOSE, SYNOVIAL (q) Specimen Type: SYNOVIAL FLUID Comment: Synovial fluid glucose values are equivalent to plasma values if obtained from a fasting patient. The difference between the plasma glucose and synovial fluid glucose value should be <10 mg/dL. Test Performed by [facility], [address] [place] [address] Rajesh Doss M.D., Ph.D., Director of Laboratories , CLIA [id number] TEST PERFORMED AT: , Ordering Provider: REESE MCFADDEN Report Released Date/Time: Nov 17, 2023 09:15 AM Reporting Lab: [facility] [address] [facility] [facility] [address] Performing Lab: [facility] [address] [address] GLUCOSE, SYNOVIAL (q) 145 mg/dL Nov 17, 2023 08:30 AM [facility] SYNOVIAL FLUID CRYSTALS PANEL Specimen Type: SYNOVIAL FLUID No comment entered. Ordering Provider: REESE MCFADDEN Report Released Date/Time: Nov 17, 2023 09:24 AM Reporting Lab: [facility] [address] [facility] [facility] [address] Performing Lab: [facility] [address] [address] CRYSTALS,BF Positive Negative MSU CRYSTALS,BF Present Negative MSU CRYSTAL EXTRA,BF Present Negative MSU CRYSTAL INTRA,BF Present Negative Nov 17, 2023 08:30 AM [facility] CELL COUNT (SYNOVIAL FLUID) Specimen Type: SYNOVIAL FLUID Comment: *CRYSTALS Not Performed: Nov 17, 2023@09:25 by [id number] *MANAGER LIGHTING Reason: see wrled 1255 for results Ordering Provider: REESE MCFADDEN Report Released Date/Time: Nov 17, 2023 09:15 AM Reporting Lab: [facility] [address] [facility] [address] Performing Lab: [place] [facility] [address] [facility] [address] WBC 350 RBC <3000 COLOR Y VOLUME 2ml mL APPEARANCE C NUCLEATED CELL # comment 0-200 Encounter Notes: All associated encounter notes This section contains the clinical notes associated to the Encounter. Date/Time Encounter Note(s) Provider Source Oct 30, 2023 02:26 PM HOMELESS PROGRAM N OTE: LOCAL TITLE: HOMELESS OUTREACH STANDARD TITLE: HOMELESS PROGRAM NOTE DATE OF NOTE: OCT 30, 2023@14:26 ENTRY DATE: OCT 30, 2023@14:26:33 AUTHOR: AME HESS COSIGNER: URGENCY: STATUS: COMPLETED HOMELESS OUTREACH Has ADDENDA HOMELESS OUTREACH Patient identification verifiers used:Full Name, , Full SSN Duration: 1 hour Reason for Contact: Outreach Diagnoses: Homelessness, Housing &/or Economic Circumstances NOS Provided all documents to complete VASH application. Understands he may be over income for VASH. Started [employer] today. Not eligible for [facility]. Can't get caught up on back rent owed to [employer] via [employer]. Elijah spoken with Roderick and gave this proposal manager writer permission to talk to Roderick. Elijah said that he rec'd legal algaaciq re: matter. Elijah said that his income fluctuates but he's been making less and less since the beginning of the pandemic. He had a daughter move out and she graduated in July. He pays on utlities, cable, car insurance, phone, gas, and food and maxed out credit cards and 401K. 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 It's all I know. Gets commission and his hourly minimum wage rolled into one weekly payment. in past 15 years he's had non- payment of rent, notice to quit, or summons provided to him 7x by [employer]. I can't do it this time. A & O x3. Pleasant, cooperative, organized, focused, partcipatory, engaged, motivated. Experiencing acute stressor in terms of housing which he has had difficulty affording. Understands he could be over income for [facility] and that I could meet w/ him about [facility] housing units and [facility] that he could apply for but that would be lengthy in processing time. plan: see [employer]et on Nov 10 in the afternoon. submitted VAS application. Assessment/Intake Form VA staff member completing assessment (first and last name): Ame Hess [place] Site (3-digit [facility] code plus 2-digit suffix, if any): 631 Date of assessment (mm/dd/yy): 10/28/2023 Site Code: 631 1. Leroy's name: Lupillo Monroe 2. Social Security number: [id number] 3. Date of (mm/dd/yy): 1960 4. Gender Male May Pre-engagement Screening be skipped? Yes 5. Does the Leroy want assistance with any of the following areas? a. Housing b. Financial Hardship c. Legal d. Access to Healthcare e. Mental Health Concerns and Substance Abuse f. Self Endangerment g. Civilian Adjustment 6. Will the assessment interview be completed? Yes a. If no, please indicate main reason b. If no, are immediate Non-VA homeless services required? c. If yes, Which Non-VA homeless service is required 1. Non-VA Emergency Room (medical or psychiatric) 2. Non-VA detoxification services 3. Non-VA mental health or substance abuse services 4. Non-VA medical services 5. Non-VA social vocational assistance 6. Non-VA housing 7. Non-VA Income Resources 8. Other (specify) d. May we contact you at a later date? 7. What race do you most strongly identify with? Black or 8. What ethnicity do you most strongly identify with? Non-/Non- 9. What is your current marital status? Never 10. How many children under the age of 18 do you have? Include biological children, adopted children, stepchildren, and foster children 0 a. How many of them are in your legal custody (full or joint custody)? 11. How many full years of formal education do you have? (if refused to answer code N) N 12. Identify the years in which you entered and from service (favor the longest period of time served; if equal time in two separate episodes, favor a combat era over a non-combat era). a. What year did you enter service? 1980 b. What year did you separate from service? 1984 13. In which branch of the did you serve the longest? [employer] 14. 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 Have you served on active duty in the armed forces of the [place]? 15. What was the rank status of your longest service? Enlisted 16. What was the highest rank you achieved during your tour(s) of duty? 3 17. Are you currently serving in the on active duty or active in the Reserves or National Guard? No 18. Did you serve in the theatre of operations for any of the following conflicts? This item asks about service within the geographic proximity of the conflict, not participation in combat. a. World War II No b. Malay War No c. Vietnam War No d. Urdu Pitt[place] War (Operation Desert Storm) No e. [place] (Operation Enduring Columbus) No f. [place] (Operation Ivorian [place]) No g. [place] (Operation [place] Joan) No h. Other peace-keeping operations or interventions (such as [place], [place], [place], [place], [place]) No 19. Did you ever receive hostile or friendly fire in a combat zone? No 20. Where were you residing prior to today (ask the where he/she slept last night)? Housing rented by , no ongoing housing subsidy Specify subsidy type: 21. Over the past 30 days, did you spend at least one night in a place not meant for habitation (e.g., a vehicle, an abandoned building, bus/train/subway station/airport or anywhere outside)? No 21a. How long did you stay in the location where you were residing prior to today (location where he/she slept last night, item 20)? One year or longer 22. What is the zip code of the location where the was residing prior to today (if unknown, use current location)? [id number] 23. Are you living with others at this location? No 23a. spouse/significant other? 23b. children under 18 (list number)? 23c. related adults (list number)? 23d. unrelated adults (list number) 23e. What is your relationship to the head of household at that location? 24. Housing stability: How would you describe your current housing situation? Unstably housed/at risk of losing housing 25. How long have you been homeless? 26. What is the total number of times you have been homeless on the street, in Emergency Halfway (ES), or Safe Haven (SH) in the past three years? 0 26a. How many months in total have you been homeless in the past three years? NOTE: If a is homeless for any part of a given month, round up and count that period as one month of homelessness. 27. What is the total amount of time, if any, that you have spent in correction or halfway during your lifetime? Interviewer omitted item 28. Which best describes your employment pattern in the last 3 years? Full-time employment 29. How many days did you work for pay in the past 30 days? Count participation in CWT/SE as days worked. 20 30. Did you receive any money in the past 30 days? Yes a. Employment (include CWT/SE): 2,500 b. Compensation for service connected psychiatric condition 0 c. Compensation for other service connected condition 0 d. Non-service connected pension 0 e. Correction income from Social Security 0 f. Pension from a former job 0 g. Supplemental Security Income (SSI) 0 h. Social Security Disability Income (SSDI) 0 i. Private disability insurance 0 j. Worker's compensation 0 k. Unemployment insurance 0 l. Temporary Assistance for Needy Families (TANF) or similar local program 0 m. General Assistance (GA) or similar local program 0 n. Child support 0 o. Alimony or other spousal support 0 p. All other sources (do not include food stamps) 0 Total Amount $2,500 31. Did you receive any non-veloz benefits in the past 30 days?If yes, select each category Yes a. Medicaid health insurance program or similar local program Yes b. Medicare health insurance program or similar local program No c. Temporary Rental Assistance No d. Homeless Prevention and Rapid Re-housing Program (HPRP) Funds No e. Leroy Service Organizations No f. [facility] Children[facility] Insurance Program or similar local program No g. Supplemental Nutrition Assistance Program (SNAP) or Food Daniels No h. Special Supplemental Nutrition Program for Women, Infants and Children (WIC) No i. Temporary Assistance for Needy Families (TANF) or similar local program Director Volunteer Services Services No j. Temporary Assistance for Needy Families (TANF) or similar local program Transportation Services No k. Other [facility]-funded services No l. Bus, subway, train or cab voucher No m. SSI/SSDI Outreach, Access and Recovery (SOAR) No o. Other No 32. Do you have any significant outstanding debts? Yes a. housing loans No b. student loans No c. other loans (personal, auto, etc) No d. credit card debt Yes e. child support No f. alimony No g. medical expenses (self or dependents) No h. fines or other legal obligations No i. outstanding tax bills No j. other (specify) No 33. Do you currently have a international sales representative payee or fiduciary? No 34. In the past 30 days, would you say your physical health has been: Fair 34a. In the past six months, how many times have you been to the emergency department/room? 0 34b. In the past six months, how many times have you been hospitalized as an inpatient, including hospitalizations in a mental health hospital? 0 35. How would you describe the health of your teeth and gums? Good 36. Has a doctor or nurse ever told you that you have any of the following medical conditions? a. HIV/AIDS No b. Hepatitis C No c. Tuberculosis (TB) or + PPD No d. Chronic Obstructive Pulmonary Disease (COPD) No e. Heart disease No f. Stroke No g. Diabetes No h. Seizures No i. Chronic pain No j. Liver disease, Cirrhosis, or End-Stage Liver Disease No k. Kidney Disease/End-stage Renal Disease No l. History of frostbite, immersion foot or hypothermia (Specify) No m. Cancer No n. History of Heat Stroke/Heat Exhaustion No o. Developmental Disability No p. Other (Specify) Yes arthritis 36p. Is this Leroy a homeless individual with a disabling condition based on one or more of the following: A physical, mental, or emotional impairment, including an impairment caused by alcohol or drug abuse, post-traumatic stress disorder, or brain injury that: (1) Is expected to be long-continuing or of indefinite duration; (2) Substantially impedes the individual's ability to live independently; and (3) Could be improved by the provision of more suitable housing conditions? No 37. Do you use tobacco products? Interviewer omitted item 38. In the past 30 days, how many days did you drink ANY alcohol? 3 39. In the past 30 days, how many days did you have at least 5 drinks (if you are a man) or at least 4 drinks (if you are a woman)? 0 40. In the past 30 days, how many days did you use any illegal/street drugs or abuse any prescription medications? 0 41. In the past 30 days, how much were you bothered by cravings or urges to drink alcohol or use drugs? Not at all 42. Have you ever received professional treatment for alcohol or other substance use disorder? Interviewer omitted item 43. Have you ever been hospitalized for a psychiatric problem? (do not include residential treatment or hospitalization for substance use problem) No 44. Have you been attacked or beaten up since you've become homeless? No 45. Have you threatened to or tried to harm yourself or anyone else in the last year? No 46. Does anybody force you or trick you to do things you do not want to do? No 47. Do you ever do things that may be considered to be risky like exchange sex for money, run drugs for someone, have unprotected sex with someone you don't know, share a needle, or anything like that? No 48. Which of the following treatment concerns apply to this Leroy? a. Alcohol use disorder No b. Drug use disorder No c. Gambling problem or pathological gambling No d. Schizophrenia No e. Other psychotic disorder No f. Bipolar disorder No g. related PTSD No h. Non- related PTSD No i. Anxiety disorder No j. Affective disorder (including depression) Yes k. Adjustment disorder Yes l. Nicotine dependence No m. Organic brain syndrome No n. Personality disorder No o. Other psychiatric disorder No 49a. Does this Leroy need psychiatric treatment at this time? No 49b. Is the Leroy interested and willing to participate in psychiatric treatment? 50a. Does this Leroy need substance abuse treatment at this time? No 50b. Is the interested and willing to participate in substance abuse treatment? 51a. Does this need medical treatment at this time? No 51b. Is the Leroy interested and willing to participate in medical treatment? 52a. Does this need case management? Yes 52b. Is the interested and willing to participate in case management treatment? Yes 53a. Does the need assistance with family problems? No 53b. Is the interested and willing to participate in treatment for family problems? 54. Is this a danger to self or others? No 55. Is this Leroy in danger from others (e.g., gang violence, fleeing domestic violence)? No /ivone/ Ame Hess [facility] [place] Signed: 10/30/2023 14:34 10/30/2023 ADDENDUM STATUS: COMPLETED [facility] application submitted. /ivone/ Ame Hess [facility] S Signed: 10/30/2023 15:06 AME HESS [facility]
--- OUTSIDE RECORDS SUMMARY | 2024-03-02 09:01 | XMS_ITS | Encounter Summary ---
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 Date/Time Encounter Type Encounter Description Reason Pro vider Source Nov 11, 2023 02:06 PM Outpatient Encounter HCHV/HCMI INDIV IHE Encounter Template Text not used by OR Plan of Treatment: Future Appointments (+ 6 [...] - MEDICINE [facility] [place] [facility] Nov 17, 2023 08:00 AM AMBULATORY - MEDICINE [facility] [place] [facility] Jan 06, 2024 10:00 AM AMBULATORY - MEDICINE [facility] Jan 10, 2024 11:15 AM AMBULATORY - NONE [facility] [place] [facility] Jan 10, 2024 11:30 AM AMBULATORY - NONE [facility] [place] [facility] Jan 13, 2024 10:00 AM AMBULATORY - [facility]CHIATRY [facility] [place] [facility] Jan 13, 2024 01:00 PM AMBULATORY - MEDICINE [facility] [place] [facility] Feb 03, 2024 03:30 PM AMBULATORY - MEDICINE [facility] Mar 01, 2024 11:00 AM AMBULATORY - MEDICINE [facility] [place] [facility] Apr 06, 2024 10:00 AM AMBULATORY - PSYCHIATRY [place] [facility] [place] [facility] Lab Results: +/- 30 days of the encounter This section includes the Chemistry and Hematology Lab Results on record with OR for the patient. Radiology Reports and Pathology Reports are provided separately, in subsequent sections. Lab Results This section contains the Chemistry/Hematology Results that were resulted 30 days before or 30 daysafter the date of the Encounter. Date/Time Source Result Type Result - Unit Interpretation Reference Range Comment Nov 17, 2023 08:30 AM [facility] CULTURE,BODY FLUID PANEL(C.D.H) Specimen Type: SYNOVIAL FLUID Comment: Refer to CPRS: Thompson Imag. Display for Lab Results Ordering Provider: REESE MCFADDEN Report Released Date/Time: Nov 17, 2023 09:15 AM Reporting Lab: [place] [facility] [place] [facility] [address] [facility] [address] Performing Lab: [place] [facility] [place] [facility] [address] [facility] [address] GRAM STAIN(cdh) comment ANAEROBIC CULTURE(cdh) comment CULTURE,BODY FLUID(cdh) comment Nov 17, 2023 08:30 AM [facility] [place] [facility] GLUCOSE, SYNOVIAL (q) Specimen Type: SYNOVIAL FLUID Comment: Synovial fluid glucose values are equivalent to plasma values if obtained from a fasting patient. The difference between the plasma glucose and synovial fluid glucose value should be <10 mg/dL. Test Performed by [facility], [address] [place] [address] Rajesh Doss M.D., Ph.D., Director of Laboratories , CLIA [id number] TEST PERFORMED AT: , Ordering Provider: REESE MCFADDEN Report Released Date/Time: Nov 17, 2023 09:15 AM Reporting Lab: [facility] [address] [facility] [address] Performing Lab: [facility] [address] [address] GLUCOSE, SYNOVIAL (q) 145 mg/dL Nov 17, 2023 08:30 AM [facility] SYNOVIAL FLUID CRYSTALS PANEL Specimen Type: SYNOVIAL FLUID No comment entered. Ordering Provider: REESE MCFADDEN Report Released Date/Time: Nov 17, 2023 09:24 AM Reporting Lab: [facility] [address] [facility] [address] Performing Lab: [facility] [address] [facility] [address] CRYSTALS,BF Positive Negative MSU CRYSTALS,BF Present Negative MSU CRYSTAL EXTRA,BF Present Negative MSU CRYSTAL INTRA,BF Present Negative Nov 17, 2023 08:30 AM [facility] CELL COUNT (SYNOVIAL FLUID) Specimen Type: SYNOVIAL FLUID Comment: *CRYSTALS Not Performed: Nov 17, 2023@09:25 by [id number] *X [employer] Reason: see wrled [id number] for results Ordering Provider: REESE MCFADDEN Report Released Date/Time: Nov 17, 2023 09:15 AM Reporting Lab: [facility] [address] [facility] [address] Performing Lab: [facility] [address] [facility] [address] WBC 350 RBC <3000 COLOR Y VOLUME [...] DATE: NOV 11, 2023@14:06:52 AUTHOR: AME HESS COSIGNER: URGENCY: STATUS: COMPLETED APPOINTMENT NO SHOW Has ADDENDA Patient Name: LUPILLO HONG Patient SSN: [id number] Date and time of Appointment No show [...] show for appointment today at 1400 in [facility]. This rewriter had left a message for Roderick Hernandez of web care [employer] concerning [facility] and will only hear back post-11/19. Will offer to meet [facility] Dec 01 at 1400 in [facility]. Future Clinic Visits 11/14/2023 15:00 CWM/NO/MED REHAB 1 PA 01/06/2024 10:00 CWM/SO/PACT 3 WH 01/13/2024 10:00 CWM/NO/VVC/MHC/CLP2 /ivone/ Ame Hess [facility], S Signed: 11/11/2023 14:36 11/14/2023 ADDENDUM STATUS: COMPLETED this rewriter had overbooked for 1400 at [facility] on 12/01 so this rewriter wrote Vet another letter re: coming in to clinic at 1300 instead. /ivone/ Ame Hess [facility], S Signed: 11/14/2023 11:22 AME HESS [facility]
--- OUTSIDE RECORDS SUMMARY | 2024-03-02 09:01 | XMS_ITS | Encounter Summary ---
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 Date/Time Encounter Type Encounter Description Reason Pro vider Source IHE Encounter Template Text not used by [place]
--- OUTSIDE RECORDS SUMMARY | 2024-03-02 09:02 | XMS_ITS | Encounter Summary ---
Author Name Department of Vetera ns Affairs ([place]) Organization Department of Veter[place] Address [address] [place] [address] Care Team Providers Care Health Informatics Specialist Name Role Phone BOY DELONG Primary [...] RX PRESCRIPT ION HEALT H [facility] Mar 07, 2020 [facility] [phone] MARGARETH HONG RRYL PATIENT Selected Encounter This section includes the information on record at OR for the Encounter. Date/Time Encounter Type Encounter Description Reason Pro vider Source Dec 26, 2023 06:56 PM Outpatient Encounter ADMIN PAT ACTIVTIES (MASNONCT) [...] 2024 10:00 AM [facility] Jan 10, 2024 11:15 AM AMBULATORY - NONE [facility] [place] [facility] Jan 10, 2024 11:30 AM AMBULATORY - NONE [facility] [place] [facility] Jan 13, 2024 10:00 AM AMBULATORY - PSYCHIATRY [facility] [facility] Jan 13, 2024 01:00 PM AMBULATORY - MEDICINE [facility] [place] [facility] Feb 03, 2024 03:30 PM [facility] Mar 01, 2024 11:00 AM AMBULATORY - MEDICINE [facility] [place] [facility] Apr 06, 2024 10:00 AM AMBULATORY - PSYCHIATRY [facility] [facility] May 14, 2024 10:30 AM AMBULATORY - MEDICINE [place] [facility] [place] [facility] Active, Pending, and Scheduled Orders This section includes a listing of several types of active, pending, and scheduled orders, including clinic medications orders, diagnostic test orders, procedure orders and consult orders; where the start date of the order is 45 days before the date of the Encounter or 45 days after the date of theEncounter. The data comes from all [place] treatment facilities. Test Date/Time Test Type Test Details Facility Name Jan 13, 2024 01:37 PM Consult Order COMM[facility]ITY CARE-[facility]THO SURGICAL Cons Cartoon Designer's Choice [facility] [place] [facility] Feb 03, 2024 03:52 PM Consult Order PHYSICAL T HERAPY/SPOPC OUTPT Cons Cartoon Designer's Choice [facility] Lab Results: +/- 30 days of the [...] Range Comment Jan 06, 2024 10:11 AM [facility] MICROALBUMIN CREATININE RATIO PANEL Spe cimen Type: URINE No comment entered. Ordering Provider: BOY DELONG Report Released Date/Time: Nov 23, 2023 08:33 AM Reporting Lab: [place] [address] [address] [address] Performing Lab: [address] [address] MICROALBUMIN/C REATININE RATIO 13.8 mg/g 0-29.9 MICROALBUMIN,Q UANTITATIVE 2.5 mg/dL RR UNAVAIL CREATININE URINE 180.82 mg/dL Jan 06, 2024 10:11 AM [facility] [facility] URINALYSIS Specimen Type: URINE Comment: If Glucose = >500 and Ketones are positive, please alert the Physician. Ordering Provider: BOY DELONG Report Released Date/Time: Nov 23, 2023 08:33 AM Reporting Lab: [address] [address] Performing Lab: [address] [address] UA COLOR Light-Yellow Yellow UA APPEARANCE Clear Clear UA GLUCOSE Normal mg/dL Negative UA KETONES NEGATIVE mg/dL Negative UA BLOOD NEGATIVE mg/dL Negative UA PROTEIN 10 mg/dL Negative UA NITRITE NEGATIVE mg/dL Negative UA BILIRUBIN NEGATIVE mg/dL Negative UA SPECIFIC GRAVITY 1.024 H 1.016-1.022 UA pH 5.5 5.0-9.0 UA UROBILINOGEN Normal mg/dL <2.0 UA LEUKOCYTE NEGATIVE Negative Jan 06, 2024 09:55 AM [facility] URIC ACID Specimen Type: SERUM No comment entered. Ordering Provider: BOY DELONG Report Released Date/Time: Nov 23, 2023 08:33 AM Reporting Lab: [address] [address] Performing Lab: [address] [address] URIC ACID 5.7 mg/dL 3.5-7.2 Jan 06, 2024 09:55 AM [place] CALCIUM Specimen Type: SERUM No comment entered. Ordering Provider: BOY DELONG Report Released Date/Time: Nov 23, 2023 08:33 AM Reporting Lab: [address] [address] Performing Lab: [address] [address] CALCIUM 9.0 mg/dL 8.5-10.2 Jan 06, 2024 09:55 AM [place] [place] BASIC METABOLIC PANEL (fasting) Specime n Type: SERUM No comment entered. Ordering Provider: BOY DELONG Report Released Date/Time: Nov 23, 2023 08:33 AM Reporting Lab: [facility] [address] [facility] [address] Performing Lab: [address] [address] UREA NITROGEN 18 mg/dL 7-25 GLUCOSE 108 mg/dL H 65-100 SODIUM 140 mmol/L 135-145 POTASSIUM 3.9 mmol/L 3.5-5.0 CHLORIDE 111 mmol/L H 100-110 CO2 21 meq/L 20-30 CREATININE, Serum 1.13 mg/dL 0.50-1.40 eGFR(CKD-EPI 2020) 74 mL/min >60 Jan 06, 2024 09:55 AM [place] LIVER FUNCTION Specimen Type: SERUM No comment entered. Ordering Provider: BOY DELONG Report Released Date/Time: Nov 23, 2023 08:33 AM Reporting Lab: [facility] [address] [facility] [address] Performing Lab: [address] [address] PROTEIN,TOTAL 6.8 g/dL 6.0-8.3 ALBUMIN 3.9 g/dL 3.5-5.0 ALKALINE PHOSPHATASE 66 U/L 40-150 AST 21 U/L 5-34 ALT 34 U/L BILIRUBIN, TOTAL 0.4 mg/dL 0.2-1.2 Jan 06, 2024 09:55 AM [place] LIPID PANEL FASTING Specimen Type: SERUM No comment entered. Ordering Provider: BOY DELONG Report Released Date/Time: Nov 23, 2023 08:33 AM Reporting Lab: [facility] [address] [facility] [address] Performing Lab: [address] [address] CHOLESTEROL 168 mg/dL TRIGLYCERIDE 70 mg/dL 0-150 LDL calculated 115 mg/dL 0-129 CHOL/HDL 4.3 HDL CHOLESTEROL 39 mg/dL L 40-60 Jan 06, 2024 09:55 AM [place] VITAMIN D (25-OH) Specimen Type: SERUM No comment entered. Ordering Provider: BOY DELONG Report Released Date/Time: Nov 23, 2023 08:33 AM Reporting Lab: [place] [facility] [facility] [address] [facility] [address] Performing Lab: [facility] [address] [facility] [address] VITAMIN D (25-OH) 23 ng/mL 20-50 Jan 06, 2024 09:55 AM [place] FERRITIN Specimen Type: SERUM No comment entered. Ordering Provider: BOY DELONG Report Released Date/Time: Nov 23, 2023 08:33 AM Reporting Lab: [facility] [place] [facility] [address] [facility] [address] Performing Lab: [facility]RN [facility] [address] [address] FERRITIN 214 ng/mL 20-300 Jan 06, 2024 09:55 AM [place] VITAMIN B12 Specimen Type: SERUM No comment entered. Ordering Provider: BOY DELONG Report Released Date/Time: Nov 23, 2023 08:33 AM Reporting Lab: [facility] [address] [facility] [address] Performing Lab: [facility]OM[facility]RN [facility] [address] [facility] [address] VITAMIN B12 636 pg/mL 200-900 Jan 06, 2024 09:55 AM [place] PSA Specimen Type: SERUM No comment entered. Ordering Provider: BOY DELONG Report Released Date/Time: Nov 23, 2023 08:33 AM Reporting Lab: [facility] [address] [facility] [address] Performing Lab: [facility]RN [facility] [address] [facility] [address] PSA 1.09 ng/mL 0.00-4.00 Jan 06, 2024 09:55 AM [place] CBC AND DIFF (AUTO) Specimen Type: BLOOD No comment entered. Ordering Provider: BOY DELONG Report Released Date/Time: Nov 23, 2023 08:33 AM Reporting Lab: [place] [facility] [address] [place] [address] Performing Lab: [facility] [address] [facility] [address] WBC 3.76 10*3/uL L 4.50-11.00 RBC 5.35 [...] 10*3/uL 0.00-0.00 Jan 06, 2024 09:55 AM [place] HEMOGLOBIN A1C PANEL Specimen Type: BLOOD Comment: [...] 23, 2023 08:33 AM Reporting Lab: [facility] [address] [address] Performing Lab: [address] [address] HEMOGLOBIN A1C 5.5 4.0-5.6 Jan 06, 2024 09:55 AM [place] TSH Specimen Type: SERUM No comment entered. Ordering Provider: BOY DELONG Report Released Date/Time: Nov 23, 2023 08:33 AM Reporting Lab: [address] [address] Performing Lab: [address] [address] TSH 3.01 u[IU]/mL 0.35-5.00 Radiology Reports: +/- [...] the Encounter. The data comes from all [place] treatment facilities. Date/Time Radiology Report Provider Source Jan 10, 2024 11:27 AM KNEE 3 VIEWS (LEFT): JORDAN HONGJoey REIS [id number] -1960 M Exm Date: JAN 10, 2024@11:27 Req Phys: BOY DELONG Pat Loc: CWM/SO/PACT 3 WH (Req'g Loc) Im Loc: [facility] Service: [place] [address] (Case [id number] COMPLETE) KNEE 3 VIEWS (LEFT) (RAD Detailed) CPT:42980 Reason for Study: left knee pain Clinical History: any OA or joint erosions? did have gout L knee Report Status: Verified Date Reported: JAN 10, 2024 Date Verified: JAN 10, 2024 Cleaner And Preparer E-Sig: Report: KNEE 3 VIEWS (LEFT) COMPARISON: [...] the right knee demonstrates severe medial and hukd-sg-[id number] lateral tibiofemoral compartment joint degeneration, similar to [...] to prior. READING PHYSICIAN: Karon Blount M.D. -[id number] 01/10/2024 11:58 EST [facility] National Teleradiology Program [phone] (For Medical Practitioner Use Only) Attention Patients / Veterans: If you have questions or concerns about these test results, please contact your ordering provider or primary care team. Primary Diagnostic Code: NO ALERT REQUIRED Primary Interpreting Staff: RADIOLOGY,OUTSIDE SERVICE, Staff Physician / RADIOLOGY,OUTSIDE SERVICE [facility] Jan 10, 2024 11:[address] MAXILLOFACIAL W/O CONT: LUPILLO HONG [id number] -1960 M Ex Date: JAN 10, 2024@11:15 Req Phys: BOY DELONG Loc: CWM/SO/PACT 3 WH (Req'g Loc) Img Loc: [facility]/CT Service: Unknown [facility] [place] [address] (Case [id number] COMPLETE) CT MAXILLOFACIAL W/O CONT (CT Detailed) CPT:81693 Reason for Study: post nasal drip Clinical History: always cleasring thraot Report Status: Verified Date Reported: JAN 10, 2024 Date Verified: JAN 10, 2024 Cleaner And Preparer E-Sig: Report: MAXILLOFACIAL CT WITHOUT IV CONTRAST/CT OF THE PARANASAL SINUSES WITHOUT IV CONTRAST: INDICATION: Post nasal drip. Patient reportedly always clearing throat. TECHNIQUE: Volumetric CT acquisition through the maxillofacial structures/paranasal sinuses, with axial, coronal and sagittal reformats, was performed at the local [place] facility. 159 images were received by the [place] National Teleradiology Program (NTP) for interpretation. RADIATION [...] commentary as above. READING PHYSICIAN: Boy Sun -[id number] 01/10/2024 16:06 [facility] National Teleradiology Program [phone] (For Medical Practitioner Use Only) Attention Patients / Veterans: If you have questions or concerns about these test results, please contact your ordering provider or primary care team. Primary Diagnostic Code: NO ALERT REQUIRED Primary Interpreting Staff: RADIOLOGY,OUTSIDE SERVICE, Staff Physician / RADIOLOGY,OUTSIDE SERVICE [facility] Jan 10, 2024 11:[address] THORAX W/O CONT: LUPILLO HONG [id number] -1960 M Exm Date: JAN 10, 2024@11:15 Req Phys: BOY DELONG Loc: CWM/SO/PACT 3 WH (Req'g Loc) Img Loc: NHM/CT Service: Unknown [facility] [address] (Case 84 COMPLETE) CT THORAX W/O CONT (CT Detailed) CPT:52221 Reason for Study: chest tightness Clinical History: post nasal drip coughing echo and ekg of heart neg for cardiac pathology back in may 2023 any signs interstitial lung disease? Report Status: Verified Date Reported: JAN 10, 2024 Date Verified: JAN 10, 2024 Cleaner And Preparer E-Sig: Report: CT OF THE CHEST WITHOUT IV CONTRAST INDICATION: Chest tightness, post nasal drip, coughing. Assess for signs of interstitial lung disease. TECHNIQUE: Volumetric CT acquisition through the chest, with axial, coronal and sagittal reformats, was performed at the local [place] facility. 1194 images were received by the [place] National Teleradiology Program (NTP) for interpretation. RADIATION [...] as detailed above. READING PHYSICIAN: Boy Sun -[phone] 01/10/2024 17:01 EST [facility] National Teleradiology Program [phone] (For Medical Practitioner Use Only) Attention Patients / Veterans: If you have questions or concerns about these test results, please contact your ordering provider or primary care team. Primary Diagnostic Code: SIGNIFICANT ABNORMALITY, ATTN NEEDED Primary Interpreting Staff: RADIOLOGY,OUTSIDE SERVICE, Staff Physician / RADIOLOGY,OUTSIDE SERVICE [facility] Encounter Notes: All associated encounter notes This section contains the clinical notes associated to the Encounter. Date/Time Encounter Note(s) Provider Source Dec 26, 2023 06:56 PM PHARMACY NOTE: LOCAL TITLE: PHARMACY CUSTOMER CARE MEDICATION RENEWAL STANDARD TITLE: PHARMACY NOTE DATE OF NOTE: DEC 26, 2023@18:56 ENTRY DATE: DEC 26, 2023@18:56:59 AUTHOR: JAMES NUNO COSIGNER: URGENCY: STATUS: COMPLETED Date: Dec Division: [facility] referred by Pharmacy Call Center for medication renewal: Non-controlled/maintenance medication Medications requested: [id number] COLCHICINE 0.6MG TAB Defer to primary care provider To be mailed . Please review and renew if appropriate. *This note was generated by [facility]/[place] Pharmacy Customer Care. If you have any questions or need assistance, do not contact this author. Please refer all questions to your local, on-site pharmacy departments. /ivone/ JAMES NUNO CPhT Senior Market Research Analyst, [place]/Pharmacy Customer Care Signed: 12/26/2023 18:57 Receipt Acknowledged By: 12/27/2023 08:25 /ivone/ BOY DELONG PA-C STAFF PHYSICIAN CHEMISTRY LABORATORY TECHNICIAN 12/27/2023 08:15 /es/ Imelda Lutz, RN Registered Nurse (RN) JAMES NUNO [facility]
--- OUTSIDE RECORDS SUMMARY | 2024-03-02 09:02 | XMS_ITS | Encounter Summary ---
Author Name [facility] Organization [facility] [place] Address [address] [place] [address] Care Team Providers Care Ecmo Specialist Name Role Phone BOY DELONG Primary [...] RX PRESCRIPT ION HEALT H NEW ENGL [facility] Mar 07, 2020 [facility] [id number] MARGARETH HONG RRYL PATIENT Selected Encounter This section includes the information on record at [place] for the Encounter. Date/Time Encounter Type Encounter Description Reason Provider Source Jan 05, 2024 02:10 PM Outpatient Encounter PM&RS PHYSICIAN SARITA GREWAL Encounter Template Text not used by [place] [...] AMBULATORY - NONE [facility] Jan 10, 2024 11:30 AM AMBULATORY - NONE [facility] [place] [facility] Jan 13, 2024 10:00 AM AMBULATORY - PSYCHIATRY [facility] [place] [facility] Jan 13, 2024 01:00 PM AMBULATORY [facility] MEDICINE [facility] [place] [facility] Feb 03, 2024 03:30 PM AMBULATORY - MEDICINE [facility] Mar 01, 2024 11:00 AM AMBULATORY - MEDICINE [facility] [place] [facility] Apr 06, 2024 10:00 AM AMBULATORY - PS[facility]CHIATRY [facility] [place] [facility] May 14, 2024 10:30 AM AMBULATORY - MEDICINE [place] [facility] [place] [facility] Active, Pending, and Scheduled Orders This section includes a listing of several types of active, pending, and scheduled orders, including clinic medications orders, diagnostic test orders, procedure orders and consult orders; where the start date of the order is 45 days before the date of the Encounter or 45 days after the date of theEncounter. The data comes from all [place] treatment facilities. Test Date/Time Test Type Test Details Facility Name Jan 13, 2024 01:37 PM Consult Order COMMUNITY CARE-ORTHO SURGICAL Cons Special Effects Designer's Choice [place] [facility] [place] [facility] Feb 03, 2024 03:52 PM Consult Order PHYSICAL T HERAPY/SPOPC OUTPT Cons [facility] Lab Results: +/- 30 days of the [...] Range Comment Jan 06, 2024 10:11 AM [facility] MICROALBUMIN CREATININE RATIO PANEL Spe cimen Type: URINE No comment entered. Ordering Provider: BOY DELONG Report Released Date/Time: Nov 23, 2023 08:33 AM Reporting Lab: [place] [facility] [place] [address] [address] Performing Lab: [facility] [address] [facility] [address] MICROALBUMIN/C REATININE RATIO 13.8 mg/g 0-29.9 MICROALBUMIN,Q UANTITATIVE 2.5 mg/dL RR UNAVAIL CREATININE URINE 180.82 mg/dL Jan 06, 2024 10:11 AM [place] URINALYSIS Specimen Type: URINE Comment: If Glucose = >500 and Ketones are positive, please alert the Physician. Ordering Provider: BOY DELONG Report Released Date/Time: Nov 23, 2023 08:33 AM Reporting Lab: [address] [address] Performing Lab: [address] [address] UA COLOR Light-Yellow Yellow UA APPEARANCE Clear Clear UA GLUCOSE Normal mg/dL Negative UA KETONES NEGATIVE mg/dL Negative UA BLOOD NEGATIVE mg/dL Negative UA PROTEIN 10 mg/dL Negative UA NITRITE NEGATIVE mg/dL Negative UA BILIRUBIN NEGATIVE mg/dL Negative UA SPECIFIC GRAVITY 1.024 H 1.016-1.022 UA pH 5.5 5.0-9.0 UA UROBILINOGEN Normal mg/dL <2.0 UA LEUKOCYTE NEGATIVE Negative Jan 06, 2024 09:55 AM [place] URIC ACID Specimen Type: SERUM No comment entered. Ordering Provider: BOY DELONG Report Released Date/Time: Nov 23, 2023 08:33 AM Reporting Lab: [address] [address] Performing Lab: [address] [address] URIC ACID 5.7 mg/dL 3.5-7.2 Jan 06, 2024 09:55 AM [place] BASIC METABOLIC PANEL (fasting) Specime n Type: SERUM No comment entered. Ordering Provider: BOY DELONG Report Released Date/Time: Nov 23, 2023 08:33 AM Reporting Lab: [address] [address] Performing Lab: [address] [address] UREA NITROGEN 18 mg/dL 7-25 GLUCOSE 108 mg/dL H 65-100 SODIUM 140 mmol/L 135-145 POTASSIUM 3.9 mmol/L 3.5-5.0 CHLORIDE 111 mmol/L H 100-110 CO2 21 meq/L 20-30 CREATININE, Serum 1.13 mg/dL 0.50-1.40 eGFR(CKD-EPI 2020) 74 mL/min >60 Jan 06, 2024 09:55 AM [place] CALCIUM Specimen Type: SERUM No comment entered. Ordering Provider: BOY DELONG Report Released Date/Time: Nov 23, 2023 08:33 AM Reporting Lab: [address] [address] Performing Lab: [address] [address] CALCIUM 9.0 mg/dL 8.5-10.2 Jan 06, 2024 09:55 AM [place] LIVER FUNCTION Specimen Type: SERUM No comment entered. Ordering Provider: BOY DELONG Report Released Date/Time: Nov 23, 2023 08:33 AM Reporting Lab: [address] [address] Performing Lab: [address] [address] PROTEIN,TOTAL 6.8 g/dL 6.0-8.3 ALBUMIN 3.9 g/dL 3.5-5.0 ALKALINE PHOSPHATASE 66 U/L 40-150 AST 21 U/L 5-34 ALT 34 U/L BILIRUBIN, TOTAL 0.4 mg/dL 0.2-1.2 Jan 06, 2024 09:55 AM [place] LIPID PANEL FASTING Specimen Type: SERUM No comment entered. Ordering Provider: BOY DELONG Report Released Date/Time: Nov 23, 2023 08:33 AM Reporting Lab: [address] [address] Performing Lab: [address] [address] CHOLESTEROL 168 mg/dL TRIGLYCERIDE 70 mg/dL 0-150 LDL calculated 115 mg/dL 0-129 CHOL/HDL 4.3 HDL CHOLESTEROL 39 mg/dL L 40-60 Jan 06, 2024 09:55 AM [place] VITAMIN D (25-OH) Specimen Type: SERUM No comment entered. Ordering Provider: BOY DELONG Report Released Date/Time: Nov 23, 2023 08:33 AM Reporting Lab: [place] [facility] [place] [facility] [address] [facility] [address] Performing Lab: [facility] [address] [facility] [address] VITAMIN D (25-OH) 23 ng/mL 20-50 Jan 06, 2024 09:55 AM [place] FERRITIN Specimen Type: SERUM No comment entered. Ordering Provider: BOY DELONG Report Released Date/Time: Nov 23, 2023 08:33 AM Reporting Lab: [facility] [address] [facility] [address] Performing Lab: [facility] [address] [address] FERRITIN 214 ng/mL 20-300 Jan 06, 2024 09:55 AM [place] VITAMIN B12 Specimen Type: SERUM No comment entered. Ordering Provider: BOY DELONG Report Released Date/Time: Nov 23, 2023 08:33 AM Reporting Lab: [facility] [address] [facility] [address] Performing Lab: [facility] [address] [facility] [address] VITAMIN B12 636 pg/mL 200-900 Jan 06, 2024 09:55 AM [place] PSA Specimen Type: SERUM No comment entered. Ordering Provider: BOY DELONG Report Released Date/Time: Nov 23, 2023 08:33 AM Reporting Lab: [facility] [place] [facility] [address] [facility] [address] Performing Lab: [facility] [address] [facility] [address] PSA 1.09 ng/mL 0.00-4.00 Jan 06, 2024 09:55 AM [place] CBC AND DIFF (AUTO) Specimen Type: BLOOD No comment entered. Ordering Provider: BOY DELONG Report Released Date/Time: Nov 23, 2023 08:33 AM Reporting Lab: [facility] [address] [facility] [address] Performing Lab[facility] [address] [facility] [address] WBC 3.76 10*3/uL L 4.50-11.00 RBC 5.35 [...] 10*3/uL 0.00-0.00 Jan 06, 2024 09:55 AM [place] HEMOGLOBIN A1C PANEL Specimen Type: BLOOD Comment: [...] 08:33 AM Reporting Lab: [facility] [address] [address] Performing Lab: [address] [address] HEMOGLOBIN A1C 5.5 4.0-5.6 Jan 06, 2024 09:55 AM [place] TSH Specimen Type: SERUM No comment entered. Ordering Provider: BOY DELONG Report Released Date/Time: Nov 23, 2023 08:33 AM Reporting Lab: [address] [address] Performing Lab: [address] [address] TSH 3.01 u[IU]/mL 0.35-5.00 Radiology Reports: +/- [...] KNEE 3 VIEWS (LEFT): JORDAN HONGJoey REIS [id number] -1960 M Ex Date: JAN 10, 2024@11:27 Req Phys: BOY DELONG Pat Loc: CWM/SO/PACT 3 WH (Req'g Loc) Img Loc: [facility] Service: [place] [address] (Case [id number] COMPLETE) KNEE 3 VIEWS (LEFT) (RAD Detailed) CPT:86062 Reason for Study: left knee pain Clinical History: any OA or joint erosions? did have gout L knee Report Status: Verified Date Reported: JAN 10, 2024 Date Verified: JAN 10, 2024 Side Trimmer E-Sig: Report: KNEE 3 VIEWS (LEFT) COMPARISON: [...] the right knee demonstrates severe medial and [id number] lateral tibiofemoral compartment joint degeneration, similar to [...] to prior. READING PHYSICIAN: Karon Blount M.D. -[phone] 01/10/2024 11:58 EST [facility] [employer] Program [phone] (For Medical Practitioner Use Only) Attention Patients / Veterans: If you have questions or concerns about these test results, please contact your ordering provider or primary care team. Primary Diagnostic Code: NO ALERT REQUIRED Primary Interpreting Staff: RADIOLOGY,OUTSIDE SERVICE, Staff Physician / RADIOLOGY,OUTSIDE SERVICE [facility] Jan 10, 2024 11:[address] MAXILLOFACIAL W/O CONT: LUPILLO HONG [id number] -1960 M Ex Date: JAN 10, 2024@11:15 Req Phys: BOY DELONG Loc: CWM/SO/PACT 3 WH (Req'g Loc) Img Loc: [facility]/CT Service: Unknown [facility] [place] [address] (Case [id number] COMPLETE) CT MAXILLOFACIAL W/O CONT (CT Detailed) CPT:58763 Reason for Study: post nasal drip Clinical History: always cleasring thraot Report Status: Verified Date Reported: JAN 10, 2024 Date Verified: JAN 10, 2024 Side Trimmer E-Sig: Report: MAXILLOFACIAL CT WITHOUT IV CONTRAST/CT [...] commentary as above. READING PHYSICIAN: Boy Sun -[phone] 01/10/2024 16:06 [facility] National Teleradiology Program [phone] (For Medical Practitioner Use Only) Attention Patients / Veterans: If you have questions or concerns about these test results, please contact your ordering provider or primary care team. Primary Diagnostic Code: NO ALERT REQUIRED Primary Interpreting Staff: RADIOLOGY,OUTSIDE SERVICE, Staff Physician / RADIOLOGY,OUTSIDE SERVICE [facility] Jan 10, 2024 11:[address] THORAX W/O CONT: LUPILLO HONG [id number] -1960 M Exm Date: JAN 10, 2024@11:15 Req Phys: BOY DELONG Loc: CWM/SO/PACT 3 WH (Req'g Loc) Img Loc: [facility]/CT Service: Unknown [facility] [place] [address] (Case [id number] COMPLETE) CT THORAX W/O CONT (CT Detailed) CPT:52253 Reason for Study: chest tightness Clinical History: post nasal drip coughing echo and ekg of heart neg for cardiac pathology back in may 2023 any signs interstitial lung disease? Report Status: Verified Date Reported: JAN 10, 2024 Date Verified: JAN 10, 2024 Side Trimmer E-Sig: Report: CT OF THE CHEST WITHOUT [...] as detailed above. READING PHYSICIAN: Boy Sun -[phone] 01/10/2024 17:01 EST [facility] [employer] [phone] (For Medical Practitioner Use Only) Attention Patients / Veterans: If you have questions or concerns about these test results, please contact your ordering provider or primary care team. Primary Diagnostic Code: SIGNIFICANT ABNORMALITY, ATTN NEEDED Primary Interpreting Staff: RADIOLOGY,OUTSIDE SERVICE, Staff Physician / RADIOLOGY,OUTSIDE SERVICE [facility] Encounter Notes: All associated encounter notes [...] PM ET From: LUPILLO HONG To: [facility]! Subject: Appointment:LEFT KNEE My left knee is [...] Med Rehab Signed: 01/05/2024 14:10 SARITA GREWAL [facility]
--- OUTSIDE RECORDS SUMMARY | 2024-03-02 09:02 | XMS_ITS | Encounter Summary ---
Author Name [facility] [place] [facility] [place] [facility] [place] Address [address] [place] [id number] Care Team Providers Care Bucket Chucker Name Role Phone BOY DELONG Primary Care [...] RX PRESCRIPT ION HEALT H NEW ENGL [facility] Mar 07, 2020 [facility] [id number] MARGARETH HONG RRYL PATIENT Selected Encounter This section includes the information on record at [place] for the Encounter. Date/Time Encounter Type Encounter Description Reason Provider Source Jan 06, 2024 10:00 AM OFFICE O/P EST MOD 30 MIN PRIMARY CARE/MEDICINE ICD-10-CM R73.9 Hyperglycemia, unspecified BOY DELONG Encounter Template Text not used by [place] Assessments - Encounter Diagnoses This section includes the primary and secondary diagnoses documented for the Encounter. Date/Time Primary/Secondary Diagnosis Diagnosis Name Provider Source Jan 06, 2024 10:39 AM PRIMARY Hyperglycemia, unspecified BOY DELONG [facility] Jan 06, 2024 10:39 AM SECONDARY Encounter for immunization MARGARET WOO [facility] Jan 06, 2024 10:39 AM SECONDARY Essential (primary) hypertension BOY DELONG [facility] Jan 06, 2024 10:39 AM SECONDARY Pain in left knee BOY DELONG Jan 06, 2024 10:39 AM SECONDARY Pain in right knee BOY DELONG Plan of Treatment: Future Appointments (+ 6 months) and Future Tests (+/- 45 days) The Plan of Treatment section includes future care activities for the [facility] [place] [facility] This section includes future appointments and future orders which are active, pending or scheduled. Future Appointments This section includes appointments that were scheduled to occur 6 months from the date of the Encounter, up to a maximum of 20 appointments. The data comes from all [place] treatment facilities. Appointment Date/Time Appointment Type Appointme nt Facility Name Jan 10, 2024 11:15 AM AMBULATORY - NONE [place] [facility] [place] [facility] Jan 10, 2024 11:30 AM AMBULATORY - NONE [facility] [place] [facility] Jan 13, 2024 10:00 AM AMBULATORY - PSYCHIATRY [facility] [place] [facility] Jan 13, 2024 01:00 PM AMBULATORY - MEDICINE [place] [facility] [place] [facility] Feb 03, 2024 03:30 PM AMBULATORY - MEDICINE [facility] Mar 01, 2024 11:00 AM AMBULATORY - MEDICINE [place] [facility] [place] [facility] Apr 06, 2024 10:00 AM AMBULATORY - PS[place]CHIATRY [facility] [place] [facility] May 14, 2024 10:30 AM AMBULATORY - MEDICINE [place] [facility] [place] [facility] Active, Pending, and Scheduled Orders This section includes a listing of several types of active, pending, and scheduled orders, including clinic medications orders, diagnostic test orders, procedure orders and consult orders; where the start date of the order is 45 days before the date of the Encounter or 45 days after the date of theEncounter. The data comes from all [place] treatment [facility]. Test Date/Time Test Type Test Details Facility Name Jan 13, 2024 01:37 PM Consult Order COMMUNITY CARE-ORTHO SURGICAL Cons Engine Repairer's Choice [facility] [place] [facility] Feb 03, 2024 03:52 PM Consult Order PHYSICAL T HERAPY/SPOPC OUTPT Cons [employer] Choice [facility] Lab Results: +/- 30 days of the encounter This section includes the Chemistry and Hematology Lab Results on record with [place] for the patient. Radiology Reports and Pathology Reports are provided separately, in subsequent sections. Lab Results This section contains the Chemistry/Hematology Results that were resulted 30 days before or 30 daysafter the date of the Encounter. Date/Time Source Result Type Result - Unit Interpretation Reference Range Comment Jan 06, 2024 10:11 AM [facility] MICROALBUMIN CREATININE RATIO PANEL Spe cimen Type: URINE No comment entered. Ordering Provider: BOY DELONG Report Released Date/Time: Nov 23, 2023 08:33 AM Reporting Lab: [address] [address] Performing Lab: [address] [address] MICROALBUMIN/C REATININE RATIO 13.8 mg/g 0-29.9 MICROALBUMIN,Q UANTITATIVE 2.5 mg/dL RR UNAVAIL CREATININE URINE 180.82 mg/dL Jan 06, 2024 10:11 AM [facility] URINALYSIS Specimen Type: URINE Comment: If Glucose = >500 and Ketones are positive, please alert the Physician. Ordering Provider: BOY DELONG Report Released Date/Time: Nov 23, 2023 08:33 AM Reporting Lab: [address] [address] Performing Lab: [address] [address] UA COLOR Light-Yellow Yellow UA APPEARANCE Clear Clear UA GLUCOSE Normal mg/dL Negative UA KETONES NEGATIVE mg/dL Negative UA BLOOD NEGATIVE mg/dL Negative UA PROTEIN 10 mg/dL Negative UA NITRITE NEGATIVE mg/dL Negative UA BILIRUBIN NEGATIVE mg/dL Negative UA SPECIFIC GRAVITY 1.024 H 1.016-1.022 UA pH 5.5 5.0-9.0 UA UROBILINOGEN Normal mg/dL <2.0 UA LEUKOCYTE NEGATIVE Negative Jan 06, 2024 09:55 AM [facility] URIC ACID Specimen Type: SERUM No comment entered. Ordering Provider: BOY DELONG Report Released Date/Time: Nov 23, 2023 08:33 AM Reporting Lab: [address] [address] Performing Lab: [address] [address] URIC ACID 5.7 mg/dL 3.5-7.2 Jan 06, 2024 09:55 AM [facility] BASIC METABOLIC PANEL (fasting) Specime n Type: SERUM No comment entered. Ordering Provider: BOY DELONG Report Released Date/Time: Nov 23, 2023 08:33 AM Reporting Lab: [facility] [address] [facility] [address] Performing Lab: [facility] [address] [facility] [address] UREA NITROGEN 18 mg/dL 7-25 GLUCOSE 108 mg/dL H 65-100 SODIUM 140 mmol/L 135-145 POTASSIUM 3.9 mmol/L 3.5-5.0 CHLORIDE 111 mmol/L H 100-110 CO2 21 meq/L 20-30 CREATININE, Serum 1.13 mg/dL 0.50-1.40 eGFR(CKD-EPI 2020) 74 mL/min >60 Jan 06, 2024 09:55 AM [facility] CALCIUM Specimen Type: SERUM No comment entered. Ordering Provider: BOY DELONG Report Released Date/Time: Nov 23, 2023 08:33 AM Reporting Lab: [facility] [address] [facility] [address] Performing Lab: [address] [address] CALCIUM 9.0 mg/dL 8.5-10.2 Jan 06, 2024 09:55 AM [facility] LIVER FUNCTION Specimen Type: SERUM No comment entered. Ordering Provider: BOY DELONG Report Released Date/Time: Nov 23, 2023 08:33 AM Reporting Lab: [facility] [address] [facility] [address] Performing Lab: [address] [address] PROTEIN,TOTAL 6.8 g/dL 6.0-8.3 ALBUMIN 3.9 g/dL 3.5-5.0 ALKALINE PHOSPHATASE 66 U/L 40-150 AST 21 U/L 5-34 ALT 34 U/L BILIRUBIN, TOTAL 0.4 mg/dL 0.2-1.2 Jan 06, 2024 09:55 AM [facility] LIPID PANEL FASTING Specimen Type: SERUM No comment entered. Ordering Provider: BOY DELONG Report Released Date/Time: Nov 23, 2023 08:33 AM Reporting Lab: [facility] [address] [facility] [address] Performing Lab: [facility] [address] [facility] [address] CHOLESTEROL 168 mg/dL TRIGLYCERIDE 70 mg/dL 0-150 LDL calculated 115 mg/dL 0-129 CHOL/HDL 4.3 HDL CHOLESTEROL 39 mg/dL L 40-60 Jan 06, 2024 09:55 AM [facility] VITAMIN D (25-OH) Specimen Type: SERUM No comment entered. Ordering Provider: BOY DELONG Report Released Date/Time: Nov 23, 2023 08:33 AM Reporting Lab: [facility] [address] [facility] [address] Performing Lab: [facility] [address] [address] VITAMIN D (25-OH) 23 ng/mL 20-50 Jan 06, 2024 09:55 AM [facility] FERRITIN Specimen Type: SERUM No comment entered. Ordering Provider: BOY DELONG Report Released Date/Time: Nov 23, 2023 08:33 AM Reporting Lab: [facility] [address] [facility] [address] Performing Lab: [facility] [address] FERRITIN 214 ng/mL 20-300 Jan 06, 2024 09:55 AM [facility] VITAMIN B12 Specimen Type: SERUM No comment entered. Ordering Provider: BOY DELONG Report Released Date/Time: Nov 23, 2023 08:33 AM Reporting Lab: [facility] [address] [facility] [address] Performing Lab: [facility] [address] [address] VITAMIN B12 636 pg/mL 200-900 Jan 06, 2024 09:55 AM [facility] PSA Specimen Type: SERUM No comment entered. Ordering Provider: BOY DELONG Report Released Date/Time: Nov 23, 2023 08:33 AM Reporting Lab: [facility] [place] [facility] [address] [facility] [address] Performing Lab: [facility] [address] [facility] [address] PSA 1.09 ng/mL 0.00-4.00 Jan 06, 2024 09:55 AM [facility] CBC AND DIFF (AUTO) Specimen Type: BLOOD No comment entered. Ordering Provider: BOY DELONG Report Released Date/Time: Nov 23, 2023 08:33 AM Reporting Lab: [facility] [address] [facility] [address] Performing Lab: [facility] [address] [address] WBC 3.76 10*3/uL L 4.50-11.00 RBC 5.35 [...] 10*3/uL 0.00-0.00 Jan 06, 2024 09:55 AM [facility] HEMOGLOBIN A1C PANEL Specimen Type: BLOOD Comment: [...] Nov 23, 2023 08:33 AM Reporting Lab: [facility] [address] Performing Lab: [address] [address] HEMOGLOBIN A1C 5.5 4.0-5.6 Jan 06, 2024 09:55 AM [facility] TSH Specimen Type: SERUM No comment entered. Ordering Provider: BOY DELONG Report Released Date/Time: Nov 23, 2023 08:33 AM Reporting Lab: [facility] [address] [facility] [address] Performing Lab: [facility] [address] [facility] [address] TSH 3.01 u[IU]/mL 0.35-5.00 Vital Signs: All taken on the encounter date This section contains inpatient and outpatient Vital Signs collected on the date of the Encounter. Date/Time Temperature Pulse Blood Pressure Respiratory Rate SP02 Pain Height Weight Body Mass Index Source Jan 06, 2024 10:15 AM 97 76 101/80 18 95 244 33 [facility] IELD Immunizations: All administered on the encounter date This section contains immunizations associated to the Encounter. Immunization Series Date Issued Reaction Comments INFLUENZA, HIGH-DOSE, TRIVALENT, PF Jan 05 Social History: Smoking Status (Most current) and Tobacco Use (All prior to encounter date) This section includes the most current, and the historical, smoking and tobacco- related health factors from the [place] facility where the Encounter took place. Current Smoking Status This section includes the most current smoking, or tobacco-related health factor, from the [place] facility where the Encounter took place. Date/Time Current Smoking Status Comment Matthew blankenship Jun 10, 2023 11:30 AM [place]-TOBACCO NEVER USED [facility] Tobacco Use History This section includes a history of the smoking, or tobacco-related health factors, that were collected on or before the date of the Encounter. The data comes from the [place] facility where the Encounter took place. Date/Time Smoking Status/Tobacco Use Comment F sabrina May 14, 2022 11:30 AM [place]-TOBACCO NEVER USED [facility] Mar 27, 2021 11:00 AM [place]-TOBACCO NEVER USED [facility] Radiology Reports: +/- 30 days of the [...] the Encounter. The data comes from all [place] treatment facilities. Date/Time Radiology Report Provider Source Jan 10, 2024 11:27 AM KNEE 3 VIEWS (LEFT): GELYLUPILLOVIET REIS [id number] -1960 M Ex Date: JAN 10, 2024@11:27 Req Phys: BOY DELONG Loc: CWM/SO/PACT 3 WH (Req'g Loc) Img Loc: [facility] 1 Service: [facility] [place] [address] (Case [id number] COMPLETE) KNEE 3 VIEWS (LEFT) (RAD Detailed) CPT:50540 Reason for Study: left knee pain Clinical History: any OA or joint erosions? did have gout L knee Report Status: Verified Date Reported: JAN 10, 2024 Date Verified: JAN 10, 2024 Appliance Worker E-Sig: Report: KNEE 3 VIEWS (LEFT) COMPARISON: [...] the right knee demonstrates severe medial and [id number] lateral tibiofemoral compartment joint degeneration, similar to [...] are similar to prior. READING PHYSICIAN: Karon Bloutn M.D. -[id number] 01/10/2024 11:58 EST [facility] National Teleradiology Program [phone] (For Medical Practitioner Use Only) Attention Patients / Veterans: If you have questions or concerns about these test results, please contact your ordering provider or primary care team. Primary Diagnostic Code: NO ALERT REQUIRED Primary Interpreting Staff: RADIOLOGY,OUTSIDE SERVICE, Staff Physician / RADIOLOGY,OUTSIDE SERVICE [facility] Jan 10, 2024 11:[address] MAXILLOFACIAL W/O CONT: GELYLUPILLOVIET REIS [id number] -1960 M Ex Date: JAN 10, 2024@11:15 Req Phys: BOY DELONG Loc: CWM/SO/PACT 3 WH (Req'g Loc) Img Loc: [facility]/CT Service: [place] [address] (Case [id number] COMPLETE) CT MAXILLOFACIAL W/O CONT (CT Detailed) CPT:11897 Reason for Study: post nasal drip Clinical History: always cleasring thraot Report Status: Verified Date Reported: JAN 10, 2024 Date Verified: JAN 10, 2024 Appliance Worker E-Sig: Report: MAXILLOFACIAL CT WITHOUT IV CONTRAST/CT OF THE PARANASAL SINUSES WITHOUT IV CONTRAST: INDICATION: Post nasal drip. Patient reportedly always clearing throat. TECHNIQUE: Volumetric CT acquisition through the maxillofacial structures/paranasal sinuses, with axial, coronal and sagittal reformats, was performed at the local [place] facility. 159 images were received by the [place] National Teleradiology Program (NTP) for interpretation. RADIATION [...] commentary as above. READING PHYSICIAN: Boy Sun -[phone] 01/10/2024 16:[address] [facility] National Teleradiology Program [phone] (For Medical Practitioner Use Only) Attention Patients / Veterans: If you have questions or concerns about these test results, please contact your ordering provider or primary care team. Primary Diagnostic Code: NO ALERT REQUIRED Primary Interpreting Staff: RADIOLOGY,OUTSIDE SERVICE, Staff Physician / RADIOLOGY,OUTSIDE SERVICE [facility] Jan 10, 2024 11:[address] THORAX W/O CONT: LUPILLO HONG [id number] -1960 M Exm Date: JAN 10, 2024@11:15 Req Phys: BOY DELONG Loc: CWM/SO/PACT 3 WH (Req'g Loc) Img Loc: [facility]/CT Service: Unknown [facility] [place] [address] (Case [id number] COMPLETE) CT THORAX W/O CONT (CT Detailed) CPT:46504 Reason for Study: chest tightness Clinical History: post nasal drip coughing echo and ekg of heart neg for cardiac pathology back in may 2023 any signs interstitial lung disease? Report Status: Verified Date Reported: JAN 10, 2024 Date Verified: JAN 10, 2024 Appliance Worker E-Sig: Report: CT OF THE CHEST WITHOUT IV CONTRAST INDICATION: Chest tightness, post nasal drip, coughing. Assess for signs of interstitial lung disease. TECHNIQUE: Volumetric CT acquisition through the chest, with axial, coronal and sagittal reformats, was performed at the local [place] facility. 1194 images were received by the [place] National Teleradiology Program (NTP) for interpretation. RADIATION [...] as detailed above. READING PHYSICIAN: Boy Sun -[phone] 01/10/2024 17:[address] [facility] National Teleradiology Program [phone] (For Medical Practitioner Use Only) Attention Patients / Veterans: If you have questions or concerns about these test results, please contact your ordering provider or primary care team. Primary Diagnostic Code: SIGNIFICANT ABNORMALITY, ATTN NEEDED Primary Interpreting Staff: RADIOLOGY,OUTSIDE SERVICE, Staff Physician / RADIOLOGY,OUTSIDE SERVICE [facility] Encounter Notes: All associated encounter notes This section contains the clinical notes associated to the Encounter. Date/Time Encounter Note(s) Provider Source Jan 06, 2024 10:11 AM PREVENTIVE MEDICIN E NURSING NOTE: LOCAL TITLE: CLINICAL REMINDERS/NURSING STANDARD TITLE: PREVENTIVE MEDICINE NURSING NOTE DATE OF NOTE: JAN 06, 2024@10:11 ENTRY DATE: JAN 06, 2024@10:11:56 AUTHOR: SUZETTE WOO EXP COSIGNER: URGENCY: STATUS: COMPLETED Advance Directive Screen MH AD: Patient does not have a completed advance directive on file at any facility, [place] or outside. S/he is not interested in completing one at this time. The patient received education about Advance Directives and written notification of his/her rights. BMI>30/>24.99 High Risk: Patient declines to discuss weight management. Patient declined weight discussion. Discussed revisiting at a future visit. Influenza Immunization: Influenza, High-Dose, Trivalent, Preservative Free (Fluzone-Syringe) Administered: INFLUENZA, HIGH-DOSE, TRIVALENT, PF Date Administered: Jan 06, 2024 10:00 Advanced Manufacturing Consultant: SANOFI PASTEUR Lot: [id number] Exp Date: Sep 03, [address] [facility]: [phone] Admin Route/Site: INTRAMUSCULAR/LEFT DELTOID Dosage: 0.5mL Vaccine Information Statement(s): INFLUENZA(FLU) VACC(INACTIVATED OR RECOMBINANT)VIS Oct 10, 2020 ([place]) Order By: Policy Administered By: Suzette Woo The Influenza Vaccine Information Statement (VIS) was reviewed with the patient/caregiver which lists the benefits and risks of the vaccine and the risks of not receiving the Influenza vaccine. The patient/caregiver denied any prior severe reaction to this vaccine or its components or a severe allergic reaction, such as anaphylaxis, to any vaccine or any injectable therapy. The patient/caregiver gave verbal consent to receive the vaccine. Tdap Immunization: The patient declines to receive the recommended dose of Tdap vaccine. Immunization: TDAP Refusal Reason: PATIENT DECISION Patient refuses all immunization(s) in the TDAP group Date Documented: 01/06/24 10:27 Sexual Orientation: The patient thinks of their sexual orientation as: Straight or Heterosexual Hepatitis A Vaccine for High Risk: Patient declines/refuses Hepatitis A immunization Immunization: HEP A, UNSPECIFIED FORMULATION Refusal Reason: PATIENT DECISION Patient refuses all immunization(s) in the HepA group Date Documented: 01/06/24 10:25 Herpes Zoster (Shingles) Vaccine: The patient declines to receive the recommended dose of zoster (shingles) vaccine. Immunization: ZOSTER RECOMBINANT Refusal Reason: PATIENT DECISION Patient refuses all immunization(s) in the ZOSTER group Date Documented: 01/06/24 10:25 HIV Screening: Patient has been offered HIV testing and has declined. I have explained that HIV testing is recommended for all adults, even if all risk factors are absent. The patient was educated on the risk of delayed screening. Hepatitis C Testing: Patient declines HCV lab test. COVID-19 Immunization: Refused Moderna Monovalent COVID-19 vaccine Immunization: COVID-19 (MODERNA), MRNA, LNP-S, PF, 50 MCG/0.5 ML (AGES 12+ YEARS) Refusal Reason: PATIENT DECISION Patient refuses all immunization(s) in the COVID-19 group Date Documented: 01/06/24 10:26 /ivone/ SUZETTE WOO LPN LICENSED PRACTICAL NURSE Signed: 01/06/2024 10:28 SUZETTE WOO [facility] Jan 06, 2024 10:11 AM PHYSICIAN ASSISTKELSI T NOTE: LOCAL TITLE: PA NOTE STANDARD TITLE: PHYSICIAN MEDICAL ASSOCIATE NOTE DATE OF NOTE: JAN 06, 2024@10:11 ENTRY DATE: JAN 06, 2024@10:11:45 AUTHOR: BOY DELONG COSIGNER: URGENCY: STATUS: COMPLETED S - routine re-eval O - HEENT: Throat - +erythema; no petechiae NECK: not tender and no adeno LUNGS: resp full reg unlabored; CTA b/l COR: RRR, no M ABD: soft, not tenderness EXT: no LLE A/P - 1) HTN - BP 140/70 - cont HCTZ - cont Cozaar - cont Norvasc 2) Gout, L Knee per [facility] L Knee Aspirated NOV 28 at [place] OA, L Knee? - Minimal Relief of L Knee Pain Thus - RADS: L Knee (OA or Jt. Erosions?) 3) Post-Nasal Drip; Sinus JASSO , Always Clearing Throat Chest Feels Funny (No Anginal Ch Pn) +/- SOB (on exertion or not) - already did EKG and ECHO in MAY 28 to Eval his Non-Anginal Chest Discomfort of Sorts - RADS: Maxilo-Fac CT for Sinuses Thorax to Exclude Restrictive Disease (intersti Lungs) 4) Hyperglycemic - AIC pending (was 5.8 JUN 28) RTC One Week - Review Labs He Just Did Today Medication Reconciliation: Outpatient: Has the patient been taking medications as documented in the EMLR? YES: The patient has been taking medications as documented in the EMLR. Essential Medication List for Review used to complete this medication reconciliation. INCLUDED IN THIS LIST: Alphabetical list of active outpatient prescriptions dispensed from this [facility] (local) and dispensed from another [place] or [facility] facility (remote) as well as [...] provider. /ivone/ BOY DELONG PA-C STAFF PHYSICIAN MEDICAL ASSOCIATE Signed: 01/06/2024 10:40 BOY DELONG
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
--- OUTSIDE RECORDS SUMMARY | 2024-03-02 09:02 | XMS_ITS | Encounter Summary ---
Author Name [facility] [facility] [place] [facility] [place] Address [address] [place] [address] Care Team Providers Care Implementation Coordinator Name Role Phone BOY DELONG Primary Care [...] [facility] Mar 07, 2020 [facility] [id number] MARGARETH HONG RRYL PATIENT Selected Encounter This section includes the information on record at [place] for the Encounter. Date/Time Encounter Type Encounter Description Reason Pro vider Source Mar 01, 2024 03:31 PM Outpatient Encounter ADMIN PAT ACTIVTIES (MASNONCT) [...] Appointment Type Appointme nt Facility Name Apr 06, 2024 10:00 AM AMBULATORY - [place]IATRY [place] [facility] [place] [facility] May 14, 2024 10:30 AM AMBULATORY - MEDICINE [place] [facility] Active, Pending, and Scheduled Orders This section includes a listing of several types of active, pending, and scheduled orders, including clinic medications orders, diagnostic test orders, procedure orders and consult orders; where the start date of the order is 45 days before the date of the Encounter or 45 days after the date of theEncounter. The data comes from all [place] treatment facilities. Test Date/Time Test Type Test Details Facility Name Feb 03, 2024 03:52 PM Consult Order PHYSICAL T HERAPY/SPOPC OUTPT Cons Civil Engineer'S Aide's Choice [place] Lab Results: +/- 30 days of the [...] Range Comment Feb 16, 2024 11:13 AM [place] HLA-B27 (QU) Specimen Type: BLOOD Comment: Test Performed by [employer], [employer] [facility], [address] [place] [address] Rajesh Doss M.D., Ph.D., Director of Laboratories , CLIA [id number] TEST PERFORMED AT: , Ordering Provider: BOY DELONG Report Released Date/Time: Feb 03, 2024 03:52 PM Reporting Lab: [place] [facility] [address] [facility] [address] Performing Lab: [facility] [address] [address] HLA-B27 Negative Negative Feb 16, 2024 11:13 AM [place] RHEUMATOID FACTOR Specimen Type: SERUM No comment entered. Ordering Provider: BOY DELONG Report Released Date/Time: Feb 03, 2024 03:52 PM Reporting Lab: [facility] [address] [facility] [address] Performing Lab: [facility] [address] [facility] [address] RHEUMATOID FACTOR <15 0-15 Feb 16, 2024 11:13 AM [place] MICHA SCREEN/TITER Specimen Type: SERUM Comment: 2+ Cytoplasmic staining observed. Ordering Provider: BOY DELONG Report Released Date/Time: Feb 03, 2024 03:52 PM Reporting Lab: [facility] [address] [address] Performing Lab: [facility]ITALUSEBINGHAM[facility] [address] [facility] [address] MICHA SCREEN NEG NEG <1:40 Feb 16, 2024 11:13 AM [place] C REACTIVE PROTEIN HS (WROX) Specimen T ype: SERUM Comment: Reference range changed on 08/25/10 [facility] reference ranges for ages >17 years: hsCRP [...] Feb 03, 2024 03:52 PM Reporting Lab: [facility] [address] [address] Performing Lab: [facility] [address] [facility] [address] C REACTIVE PROTEIN HS (WROX) 6.46 mg/L See eval. Feb 16, 2024 11:13 AM [place] SED RATE, AUTOMATED Specimen Type: BLOOD No comment entered. Ordering Provider: BOY DELONG Report Released Date/Time: Feb 03, 2024 03:52 PM Reporting Lab: [facility] [address] [address] Performing Lab: [facility] [address] [address] SED RATE, AUTOMATED 3 mm/h 0-20 Encounter Notes: All associated encounter notes This section contains the clinical notes associated to the Encounter. Date/Time Encounter Note(s) Provider Source Mar 02, 2024 08:17 AM ADDENDUM: LOCAL TITLE: Addendum STANDARD TITLE: ADDENDUM DATE OF NOTE: MAR 02, 2024@08:17:39 ENTRY DATE: MAR 02, 2024@08:17:40 AUTHOR: TEJA LUTZ EXP COSIGNER: URGENCY: STATUS: COMPLETED PCP--Please call to discuss lab results. Thanks /ivone/ Teja Lutz RN Registered Nurse (RN) Signed: 03/02/2024 08:18 Receipt Acknowledged By: 03/02/2024 08:53 /es/ BOY DELONG PA-C STAFF PHYSICIAN FLANGING ROLL OPERATOR === --- Original Document --- 03/01/24 CCC: SCHEDULING ADMINISTRATION: Patient Demographics Patient Name: LUPILLO HONG Patient Primary Phone: [phone] Patient Primary Address[address] [address] [place] [address] Patient : 1960 Patient Age: 63 Caller/Recipient Relation to Patient: Self Caller Name: LUPILLO HONG Administrative Administrative Note Reason: Lab / Imaging Results Administrative Note Comments: requesting a call back regarding bloodwork results. [place] can be reached at number on file. IMPORTANT: This note was created by [facility] Clinical Contact Center staff. Please do not alert the staff member by adding them as a signer for future communications. Alerts are not monitored by this user. /es/ ZANDRA CABRERA Advanced Copier Repair Technician Signed: 03/01/2024 15:31 Receipt Acknowledged By: 03/02/2024 08:24 /ivone/ Teja Lutz RN Registered Nurse (RN) * AWAITING SIGNATURE * SUZETTE WOO HOLLY N [place] [facility] Mar 01, 2024 03:31 PM ADMINISTRATIVE NOTE: LOCAL TITLE: CCC: SCHEDULING ADMINISTRATION STANDARD TITLE: ADMINISTRATIVE NOTE DATE OF NOTE: MAR 01, 2024@15:31:58 ENTRY DATE: MAR 01, 2024@15:31:59 AUTHOR: ZANDRA CABRERA COSIGNER: URGENCY: STATUS: COMPLETED CCC: SCHEDULING ADMINISTRATION Has ADDENDA Patient Demographics Patient Name: LUPILLO HONG Patient Primary Phone: [phone] Patient Primary Address: [address] [place] [address] Patient : 1960 Patient Age: 63 Caller/Recipient Relation to Patient: Self Caller Name: LUPILLO HONG Administrative Administrative Note Reason: Lab / Imaging Results Administrative Note Comments: [place] requesting a call back regarding bloodwork results. [place] can be reached at number on file. IMPORTANT: This note was created by [facility] Clinical Contact Center staff. Please do not alert the staff member by adding them as a signer for future communications. Alerts are not monitored by this user. /ivone/ ZANDRA CABRERA Advanced Copier Repair Technician Signed: 03/01/2024 15:31 Receipt Acknowledged By: 03/02/2024 08:24 /ivone/ Teja Lutz RN Registered Nurse (RN) * AWAITING SIGNATURE * SUZETTE WOO 03/02/2024 ADDENDUM STATUS: COMPLETED PCP--Please call to discuss lab results. Thanks /ivone/ Teja Lutz RN Registered Nurse (RN) Signed: 03/02/2024 08:18 Receipt Acknowledged By: * AWAITING SIGNATURE * BOY DELONG KAYLA JADIRA [place] [facility]
== END 2024-03-01 08:43 | disposition home or self-care (01) ==
LOC: HO.HOSX 08:42
PROVIDERS: Visit Provider Orthopaedic Surgery
DX: Z13.89 Encounter for screening for other disorder (principal)

== ENCOUNTER 2024-06-06 08:04 | Outpatient (AMB) | payer OTHER, SELFPAY ==
--- NOTE | 2024-06-06 08:08 | MHC.OFFVIS ---
Intake Visit Reasons: Bilateral knee pains Intake Note: Albaro is a 63 year old male who presents with complaints of progressively worsening bilateral knee pains, right greater than left. He has had both cortisone injections as well as viscosupplementation injections which gave him minimal relief. His last cortisone injection was 1 week ago. He got no relief from that injection. He describes his right knee pain as sharp and severe in nature, 10/10. His knee pains have gotten worse over the last few years in spite of continued non operative treatments. He has failed the last 6 weeks of conservative treatment. He has tried Tylenol and anti-inflammatory medicines which gave him minimal relief. At this point his right knee pain is interfering with his activities of daily living and his ability to sleep well through the night. Allergies No Known Allergies Allergy (Verified 06/06/24 08:11) Medication List - Last Reconciled 06/06/24 by Armando Urbina MD albuterol sulfate 90 mcg/actuation inhalation celecoxib mg PO BID losartan 25 mg PO DAILY sertraline mg PO sildenafil 100 mg PO DIRECTED [facility] Social History Alcohol intake: current Alcohol intake frequency: holidays/special occasions only Patient Tobacco Use Status: Never used Tobacco Current occupational status: employed Current occupation: [employer] Physical Exam Const Other: Well-nourished well-developed very friendly male awake alert and oriented x3 in no acute distress Extrem Other: Bilateral lower extremity examination shows good capillary refill, no skin lesions noted, normal sensation light touch Bilateral knee examination shows minimal effusions, palpable crepitus with range of motion, pain with range of motion, range of motion from -3 degrees to 115 degrees, no instability Results Reviewed Results Reviewed: X-rays of the patient's bilateral knees taken previously show end-stage degenerative joint disease with grade 4 [id number] arthritis, subchondral sclerosis, osteophyte formation, no acute bony abnormalities Assessment & Plan Assessment & Plan (1) Osteoarthritis of right knee: Code(s): M17.11 - Unilateral primary osteoarthritis, right knee Category: Medical (2) Osteoarthritis of left knee: Code(s): M17.12 - Unilateral primary osteoarthritis, left knee Category: Medical Plan Mr. Monroe presents with progressively worsening bilateral knee pains, right greater than left, due to end-stage degenerative joint disease. I had a lengthy discussion with the patient regarding the treatment options. At this point he has failed continued non operative treatments. The risks and benefits of right total knee replacement surgery were discussed at length with the patient. The patient is interested in proceeding with surgery later this year. He did have a cortisone injection given into his right knee last week so he will have to wait at least 3 months. He will contact my office to pick a surgery date when he is ready to do so. I will see him back just prior to his surgery to answer any final questions that he might have. He will follow-up as instructed. I spent 20 minutes in reviewing the patient's records and imaging studies, seeing the patient and documenting in the medical record. Coding Level of Care Code New Pt Level 3 (79614) Complex EM visit Add On G2211 Diagnoses Osteoarthritis of right knee M17.11 Osteoarthritis of left knee M17.12
--- OUTSIDE RECORDS SUMMARY | 2024-06-06 08:11 | XMS_ITS ---
Author Name [facility] [place] [facility] [facility] [place] Address [address] [place] [address] Care Team Providers Care Restaurant Hostess Name Role Phone BOY DELONG Primary Care [...] [facility] Mar 07, 2020 [facility] [id number] MARGARETH HONG RRYL PATIENT Selected Encounter This section includes the information on record at [place] for the Encounter. Date/Time Encounter Type Encounter Description Reason Provider Source Nov 17, 2023 08:00 AM OFFICE O/P EST LOW 20 MIN PM&RS PHYSICIAN ICD-10-CM M17.0 Bilateral primary osteoarthritis of knee NNAMDI ERIC E Encounter Template Text not used by [place] Assessments - Encounter Diagnoses This section includes the primary and secondary diagnoses documented for the Encounter. Date/Time Primary/Secondary Diagnosis Diagnosis Name Provider Source Nov 17, 2023 08:46 AM PRIMARY Bilateral primary osteoarthritis of knee NNAMDI ERIC [place] [facility] [place] [facility] Plan of Treatment: Future Appointments (+ 6 months) and Future Tests (+/- 45 days) The Plan of Treatment section includes future care activities for the patient from all [place] [facility] hospital. This section includes future appointments and [...] 06, 2024 10:00 AM AMBULATORY - MEDICINE [facility] Jan 10, 2024 11:15 AM AMBULATORY - NONE [place] [facility] [place] [facility] Jan 10, 2024 11:30 AM AMBULATORY - NONE [place] [facility] [place] [facility] Jan 13, 2024 10:00 AM AMBULATORY - [place]CHIATRY [place] [facility] [place] [facility] Jan 13, 2024 01:00 PM AMBULATORY - [place]ICINE [place] [facility] [facility] Feb 03, 2024 03:30 PM AMBULATORY - MEDICINE [facility] Mar 01, 2024 11:00 AM AMBULATORY - [place]IC[place] [facility] [facility] Apr 06, 2024 10:00 AM AMBULATORY - [place]IATRY [place] [facility] [place] [facility] Apr 10, 2024 09:00 AM AMBULATORY - [place]CHIATRY [place] [facility] [place] [facility] May 15, 2024 09:00 AM AMBULATORY - [place]IATRY [place] [facility] [place] [facility] May 15, 2024 10:30 AM AM[place]UL[place]ORY - [place] [facility] [facility] Lab Results: +/- 30 [...] 2023 08:30 AM [place] [facility] [place] [facility] CULTURE,BODY FLUID PANEL(C.D.H) Specimen Type: SYNOVIAL FLUID Comment: Refer to CPRS: [employer] Imag. Display for Lab Results Ordering Provider: REESE ERIC Report Released Date/Time: Nov 17, 2023 09:15 AM Reporting Lab: [place] [facility] [facility] [address] [address] Performing Lab: [facility] [place] [facility] [address] [facility] [id number] GRAM STAIN(cdh) comment ANAEROBIC CULTURE(cdh) comment CULTURE,BODY FLUID(cdh) comment Nov 17, 2023 08:30 [facility] GLUCOSE, SYNOVIAL (q) Specimen Type: SYNOVIAL FLUID Comment: Synovial fluid glucose values are equivalent to plasma values if obtained from a fasting patient. The difference between the plasma glucose and synovial fluid glucose value should be <10 mg/dL. Test Performed by [employer], [facility], [address] [place] [address] Rajesh Doss M.D., Ph.D., Director of Laboratories , CLIA [id number] TEST PERFORMED AT: , Ordering Provider: REESE ERIC Report Released Date/Time: Nov 17, 2023 09:15 AM Reporting Lab: [facility] [address] [address] Performing Lab: [facility] [address] [address] GLUCOSE, SYNOVIAL (q) 145 mg/dL Nov 17, 2023 08:30 AM [facility] SYNOVIAL FLUID CRYSTALS PANEL Specimen Type: SYNOVIAL FLUID No comment entered. Ordering Provider: REESE ERIC Report Released Date/Time: Nov 17, 2023 09:24 AM Reporting Lab: [facility] [address] [facility] [facility] [address] Performing Lab: [facility] [address] [facility] [address] CRYSTALS,BF Positive Negative MSU CRYSTALS,BF Present Negative MSU CRYSTAL EXTRA,BF Present Negative MSU CRYSTAL INTRA,BF Present Negative Nov 17, 2023 08:30 AM [facility] CELL COUNT (SYNOVIAL FLUID) Specimen Type: SYNOVIAL FLUID Comment: *CRYSTALS Not Performed: Nov 17, 2023@09:25 by [id number] *[employer]PER[employer] Reason: see wrled [id number] for results Ordering Provider: REESE ERIC Report Released Date/Time: Nov 17, 2023 09:15 AM Reporting Lab: [facility] [address] [facility] [address] Performing Lab: [facility] [address] [address] WBC 350 RBC <3000 COLOR Y VOLUME [...] for acute and chronic treatment. /ivone/ [facility] Signed: 11/23/2023 08:02 Receipt Acknowledged By: 11/23/2023 08:33 /ivone/ BOY DELONG PA-C STAFF PHYSICIAN PROFESSOR OF RHETORIC --- Original Document --- 11/17/23 PM&R BACK/JOINT PROCEDURE NOTE: PROCEDURE: Bilateral intra-articular knee injection with hyluronic Acid, Durolane INDICATION: Knee pain.Osteoarthritis ANESTHESIA: None. INFORMED CONSENT: Obtained verbally, and through IMED. Sheldon had 2 events over the past month [...] STAFF NAME: Mya Grewal RN Lot #: [id number] Exp: 2026-03-06 The procedure was performed with [...] this [facility] (local) and dispensed from another [place] or [facility] facility (remote) as well as [...] Remote Allergy/ADR Data available for this patient [facility] No Known Allergies Med Recon [facility] (Tool #1) INCLUDED IN THIS LIST: Alphabetical list of active outpatient prescriptions dispensed from this [place] (local) and dispensed from another [place] or [facility] facility (remote) as well as inpatient orders (local pending and active), local clinic medications, locally documented non-VA medications, and local prescriptions that have or been discontinued in the past 90 days. Non-VA Meds Last Documented On: Jun 05, 2021 NOTE The display of VA prescriptions dispensed from another [place] or [facility] facility (remote) is limited to active outpatient prescription entries matched to National Drug File at the originating site and may not include some items such as investigational drugs, compounds, etc. NOT INCLUDED IN THIS LIST: Medications self-entered by the patient into personal health records (i.e. Ad[employer]) are NOT included in this list. Non-VA medications documented outside this [place], remote inpatient orders (regardless of status) and remote clinic medications are NOT included in this list. The patient and provider must always discuss medications the patient is taking, regardless of where the medication was dispensed or obtained. OUTPT ALBUTEROL 90MCG (CFC-F) 200D ORAL INHL (Status = Active) INHALE 1 PUFF BY MOUTH ONCE DAILY NEEDED FOR BRONCHOSPASM Rx# [id number] Last Released: 06/10/23 Qty/Days Supply: 04/05 Rx Expiration Date: 06/10/24 Refills Remainin Indication: FOR BRONCHOSPASM OUTPT AMLODIPINE BESYLATE 10MG TAB (Status = Active) TAKE ONE TABLET BY MOUTH ONCE DAILY FOR BLOOD PRESSURE/HEART, DO NOT TAKE WITH GRAPEFRUIT JUICE Rx# [id number] Last Released: 08/09/23 Qty/Days Supply: Rx Expiration Date: 04/04/24 Refills Remainin OUTPT CELECOXIB 200MG CAP (Status = Active) TAKE ONE CAPSULE BY MOUTH TWICE DAILY NEEDED FOR RHEUMATOID ARTHRITIS Rx# [id number] Last Released: 08/11/23 Qty/Days Supply: Rx Expiration Date: 08/09/24 Refills Remainin Indication: FOR RHEUMATOID ARTHRITIS OUTPT DOXEPIN 3MG TAB (Status = Active) TAKE ONE TABLET BY MOUTH AT BEDTIME NEEDED FOR INSOMNIA Rx# [id number] Last Released: 09/19/23 Qty/Days Supply: Rx Expiration Date: 09/09/24 Refills Remainin Indication: FOR CHRONIC TROUBLE SLEEPING OUTPT HYALURONATE NA (DUROLANE)20MG/ML SYR 3ML (Status = Active) INJECT 60MG INTRA-ARTICULAR ONE TIME OSTEOARTHRITIS OF THE KNEE Rx# [id number] Last Released: 11/09/23 Qty/Days Supply: Rx Expiration Date: 04/01/24 Refills Remainin Indication: OSTEOARTHRITIS OF THE KNEE OUTPT HYDROCHLOROTHIAZIDE 25MG TAB (Status = Active) TAKE ONE-HALF TABLET BY MOUTH ONCE DAILY Rx# [id number] Last Released: 04/04/23 Qty/Days Supply: Rx Expiration Date: 04/04/24 Refills Remainin Indication: FOR HIGH BLOOD PRESSURE OUTPT LORATADINE 10MG TAB (Status = Active) TAKE ONE TABLET BY MOUTH ONCE DAILY FOR ALLERGY Rx# [id number] Last Released: 09/30/23 Qty/Days Supply: Rx Expiration Date: 06/10/24 Refills Remainin Indication: FOR ALLERGY OUTPT LOSARTAN 25MG TAB (Status = ) TAKE ONE TABLET BY MOUTH ONCE DAILY FOR BLOOD PRESSURE/HEART Rx# [id number] Last Released: 08/20/23 Qty/Days Supply: Rx Expiration Date: 09/08/23 Refills Remainin Indication: FOR HIGH BLOOD PRESSURE OUTPT MULTIVITAMIN CAP/TAB (Status = Active) TAKE 1 TABLET BY MOUTH ONCE DAILY FOR VITAMIN SUPPLEMENTATION Rx# [id number] Last Released: 11/01/23 Qty/Days Supply: 100 Rx Expiration Date: 10/28/24 Refills Remainin Indication: FOR VITAMIN SUPPLEMENTATION OUTPT SERTRALINE HCL 100MG TAB (Status = Discontinued) TAKE ONE-HALF TABLET BY MOUTH ONCE DAILY FOR MAJOR DEPRESSIVE DISORDER Rx# [id number] Last Released: 09/15/23 Qty/Days Supply: Rx Expiration Date: 09/09/24 Refills Remainin Indication: FOR MAJOR DEPRESSIVE DISORDER OUTPT SERTRALINE HCL 100MG TAB (Status = Active) TAKE ONE-HALF TABLET BY MOUTH ONCE DAILY FOR MAJOR DEPRESSIVE DISORDER Rx# [id number] Last Released: 11/01/23 Qty/Days Supply: Rx Expiration Date: 10/28/24 Refills Remainin Indication: FOR MAJOR DEPRESSIVE DISORDER OUTPT SERTRALINE HCL 50MG TAB (Status = Discontinued) TAKE ONE-HALF TABLET BY MOUTH ONCE DAILY FOR MAJOR DEPRESSIVE DISORDER Rx# [id number] Last Released: 08/11/23 Qty/Days Supply: Rx Expiration [...] THAN ONE TABLET AT ONE TIME Rx# [id number] Last Released: 07/27/23 Qty/Days Supply: 09/03 Rx Expiration Date: 07/25/24 Refills Remainin Indication: FOR ERECTILE DYSFUNCTION SUPPLIES OUTPT MEDICATION ORGANIZER 7DAY/2 SLOT (Status = Active) USE 1 ORGANIZER DIRECTED DIRECTED BY PROVIDER Rx# [id number] Last Released: 09/13/23 Qty/Days Supply: Rx Expiration Date: 12/08/23 Refills Remainin /ivone/ SOTERO ESPINAL,[facility] Signed: 11/17/2023 08:46 11/23/2023 ADDENDUM STATUS: COMPLETED Knee aspirate SYNOVIAL FLUID CRYSTALS PANEL SYNOVIAL SP LB #[id number] Collection time: Nov 17, 2023@08:30 Test Name Result Units Range --------- ------ ----- ----- CRYSTALS,BF Positive Ref: Negative MSU CRYSTALS,BF Present Ref: Negative MSU CRYSTAL EXTRA,BF Present Ref: Negative MSU CRYSTAL INTRA,BF Present Ref: Negative Will inform PCP to initiate treatment for gout. He does have tricompratmental arthritis secondarily. // SOTERO ERIC [facility] Signed: 11/23/2023 07:59 SOTERO ERIC [place] [facility] [facility] Nov 17, 2023 08:36 AM PHYSICAL MEDICINE [...] with the injection. TIME OUT NOTE TIME:Nov@08:15 Sheldon correctly stated: [X]Full name: LUPILLO HONG SMILEY [X]Last 4 of #: [id number] [X]: Oct PROVIDER NAME: Sotero Eric PA-c STAFF NAME: Mya Grewal RN Lot #: [id number] Exp: 2026-03-06 The procedure was performed with [...] of active outpatient prescriptions dispensed from this [place] (local) and dispensed from another [place] or [facility] facility (remote) as well as [...] Remote Allergy/ADR Data available for this patient [place] [facility] [place] [facility] No Known Allergies Med Recon NoGlossary (Tool [...] the patient into personal health records (i.e. [employer]) are NOT included in this list. Non-VA medications documented outside this [place], remote inpatient orders (regardless of status) and remote clinic medications are NOT included in this list. The patient and provider must always discuss medications the patient is taking, regardless of where the medication was dispensed or obtained. OUTPT ALBUTEROL 90MCG (CFC-F) 200D ORAL INHL (Status = Active) INHALE 1 PUFF BY MOUTH ONCE DAILY NEEDED FOR BRONCHOSPASM Rx# [id number] Last Released: 06/10/23 Qty/Days Supply: 04/05 Rx Expiration Date: 06/10/24 Refills Remainin Indication: FOR BRONCHOSPASM OUTPT AMLODIPINE BESYLATE 10MG TAB (Status = Active) TAKE ONE TABLET BY MOUTH ONCE DAILY FOR BLOOD PRESSURE/HEART, DO NOT TAKE WITH GRAPEFRUIT JUICE Rx# [id number] Last Released: 08/09/23 Qty/Days Supply: Rx Expiration Date: 04/04/24 Refills Remainin OUTPT CELECOXIB 200MG CAP (Status = Active) TAKE ONE CAPSULE BY MOUTH TWICE DAILY NEEDED FOR RHEUMATOID ARTHRITIS Rx# [id number] Last Released: 08/11/23 Qty/Days Supply: Rx Expiration Date: 08/09/24 Refills Remainin Indication: FOR RHEUMATOID ARTHRITIS OUTPT DOXEPIN 3MG TAB (Status = Active) TAKE ONE TABLET BY MOUTH AT BEDTIME NEEDED FOR INSOMNIA Rx# [id number] Last Released: 09/19/23 Qty/Days Supply: Rx Expiration Date: 09/09/24 Refills Remainin Indication: FOR CHRONIC TROUBLE SLEEPING OUTPT HYALURONATE NA (DUROLANE)20MG/ML SYR 3ML (Status = Active) INJECT 60MG INTRA-ARTICULAR ONE TIME OSTEOARTHRITIS OF THE KNEE Rx# [id number] Last Released: 11/09/23 Qty/Days Supply: Rx Expiration Date: 04/01/24 Refills Remainin Indication: OSTEOARTHRITIS OF THE KNEE OUTPT HYDROCHLOROTHIAZIDE 25MG TAB (Status = Active) TAKE ONE-HALF TABLET BY MOUTH ONCE DAILY Rx# [id number] Last Released: 04/04/23 Qty/Days Supply: Rx Expiration Date: 04/04/24 Refills Remainin Indication: FOR HIGH BLOOD PRESSURE OUTPT LORATADINE 10MG TAB (Status = Active) TAKE ONE TABLET BY MOUTH ONCE DAILY FOR ALLERGY Rx# [id number] Last Released: 09/30/23 Qty/Days Supply: Rx Expiration Date: 06/10/24 Refills Remainin Indication: FOR ALLERGY OUTPT LOSARTAN 25MG TAB (Status = ) TAKE ONE TABLET BY MOUTH ONCE DAILY FOR BLOOD PRESSURE/HEART Rx# [id number] Last Released: 08/20/23 Qty/Days Supply: 90 Rx Expiration Date: 09/08/23 Refills Remainin Indication: FOR HIGH BLOOD PRESSURE OUTPT MULTIVITAMIN CAP/TAB (Status = Active) TAKE 1 TABLET BY MOUTH ONCE DAILY FOR VITAMIN SUPPLEMENTATION Rx# [id number] Last Released: 11/01/23 Qty/Days Supply: Rx Expiration Date: 10/28/24 Refills Remainin Indication: FOR VITAMIN SUPPLEMENTATION OUTPT SERTRALINE HCL 100MG TAB (Status = Discontinued) TAKE ONE-HALF TABLET BY MOUTH ONCE DAILY FOR MAJOR DEPRESSIVE DISORDER Rx# [id number] Last Released: 09/15/23 Qty/Days Supply: Rx Expiration Date: 09/09/24 Refills Remainin Indication: FOR MAJOR DEPRESSIVE DISORDER OUTPT SERTRALINE HCL 100MG TAB (Status = Active) TAKE ONE-HALF TABLET BY MOUTH ONCE DAILY FOR MAJOR DEPRESSIVE DISORDER Rx# [id number] Last Released: 11/01/23 Qty/Days Supply: Rx Expiration Date: 10/28/24 Refills Remainin Indication: FOR MAJOR DEPRESSIVE DISORDER OUTPT SERTRALINE HCL 50MG TAB (Status = Discontinued) TAKE ONE-HALF TABLET BY MOUTH ONCE DAILY FOR MAJOR DEPRESSIVE DISORDER Rx# [id number] Last Released: 08/11/23 Qty/Days Supply: Rx Expiration [...] THAN ONE TABLET AT ONE TIME Rx# [id number] Last Released: 07/27/23 Qty/Days Supply: 09/03 Rx Expiration Date: 07/25/24 Refills Remainin Indication: FOR ERECTILE DYSFUNCTION SUPPLIES OUTPT MEDICATION ORGANIZER 7DAY/2 SLOT (Status = Active) USE 1 ORGANIZER DIRECTED DIRECTED BY PROVIDER Rx# [id number] Last Released: 09/13/23 Qty/Days Supply: Rx Expiration Date: 12/08/23 Refills Remainin /HIEN Vickers Signed: 11/17/2023 08:46 11/23/2023 ADDENDUM STATUS: COMPLETED Knee aspirate SYNOVIAL FLUID CRYSTALS PANEL SYNOVIAL SP LB #[id number] Collection time: Nov 17, 2023@08:30 Test Name [...] AWAITING SIGNATURE * BOY DELONG DANIEL L [facility]
--- OUTSIDE RECORDS SUMMARY | 2024-06-06 08:11 | XMS_ITS | Clinical Summary ---
Author Organization [facility] Address [address] [id number] Care Team Providers Care Metal Cabinet Finisher Name Role Phone Bang Liu MD Primary Care Provider [phone] Allergies No known active allergies Medications Medication Sig Dispensed Refills Start Date End Date Status amLODIPine (NORVASC) tablet 5 mg TAKE 1 TABLET BY MOUTH EVERY DAY 0 12/28/2016 Active fluticasone (FLONASE) 50 MCG/ACT nasal spray spray or apply 100 mcg inside Nose. 0 05/14/2015 Active GJZ-UDt-JzHk-NaSulf -Na Asc-C 100 G SOLR Take 1 each by mouth. 0 02/16/2017 Active cyclobenzaprine (FLEXERIL) 10 MG tablet Take 10 mg by mouth. 0 05/09/2017 Active amLODIPine (NORVASC) tablet 10 mg amlodipine 10 mg tablet 0 11/14/2018 Active diclofenac (VOLTAREN) 50 MG EC tablet diclofenac sodium 50 mg tablet,delayed release 0 Active celecoxib (CeleBREX) 200 MG capsule TAKE 1 CAPSULE BY MOUTH EVERY DAY 30 capsule 2 01/26/2021 Active Active Problems Problem Noted Date Diagnosed Date Arthritis of knee, left 03/23/2018 Arthritis of right knee 04/07/2017 Chronic pain of right knee 04/07/2017 Social History Tobacco Use Types Packs/Day Years Used Date Smoking Tobacco: Never Assessed Sex and Gender Information Value Date Recorded Sex Assigned at Not on file Gender Identity Not on file Sexual Orientation Not on file Job Start Date Occupation Industry Not on file Not on file Not on file Plan of Treatment Health Maintenance Due Date Last Done Comments Hepatitis C Screening 1962 Depression Screening 1974 Preventative Health Evaluation 1980 Colon Cancer Screening (Colonoscopy) 10/30/2007 Shingrix-Zoster Vaccine (1 o f 2) 2012 DTap / Tdap / Td (2 - Td or Tdap) 08/02/2017 08/03/2007 COVID-19 Vaccine (3 - 2023-2 5 season) 2023 07/25/2020, 07/04/2020 Influenza Vaccine (#1) 2023 6, 01/17/2015 RSV Adult > 60+ Yrs or (1 - 1-dose 75+ series) 2037 Hepatitis B Vaccines Aged Out No long er eligible based on patient's age to complete this topic Pneumococcal Vaccine Aged Out No long er eligible based on patient's age to complete this topic RSV Ped < 20 months Aged Out No longe r eligible based on patient's age to complete this topic Care Teams Metal Cabinet Finisher Relationship Specialty Start Date End Date Bang Liu MD [address] [facility], [place] [phone] PCP - General Internal Medicine 02/16/17
--- OUTSIDE RECORDS SUMMARY | 2024-06-06 08:11 | XMS_ITS ---
Author Name [facility] [place] Address [address] [place] [address] Care Team Providers Care Dimension Specification Inspector Name Role Phone BOY DELONG Primary [...] RX PRESCRIPT ION HEALT H [place] Mar 07, 2020 [facility] [id number] MARGARETH HONG RRYL PATIENT Selected Encounter This section includes the information on record at [place] for the Encounter. Date/Time Encounter Type Encounter Description Reason Pro vider Source Aug 08, 2023 08:09 PM Outpatient Encounter ADMIN PAT ACTIVTIES (MASNONCT) IHE Encounter Template Text not used by [place] Plan of Treatment: Future Appointments (+ 6 [...] - MEDICINE [facility] [place] [facility] Aug 19, 2023 10:00 AM [facility] Sep 09, 2023 09:30 AM AMBULATORY - PSYCHIATRY [facility] [place] [facility] Oct 14, 2023 09:30 AM AMBULATORY - PSYCHIATRY [facility] [place] [facility] Oct 28, 2023 10:00 AM AMBULATORY - PSYCHIATRY [facility] [place] [facility] Nov 11, 2023 11:00 AM AMBULATORY - PSYCHIATRY [facility] [place] [facility] Nov 14, 2023 03:00 PM AMBULATORY - MEDICINE [facility] [place] [facility] Nov 17, 2023 08:00 AM AMBULATORY - MEDICINE [facility] [place] [facility] Jan 06, 2024 10:00 AM AMBULATORY - MEDICINE [place] Jan 10, 2024 11:15 AM AMBULATORY - NONE [facility] [place] [facility] Jan 10, 2024 11:30 AM AMBULATORY - NONE [facility] [place] [facility] Jan 13, 2024 10:00 AM AMBULATORY - PSYCHIATRY [facility] [place] [facility] Jan 13, 2024 01:00 PM AMBULATORY - MEDICINE [facility] [place] [facility] Feb 03, 2024 03:30 PM AMBULATORY - [...] COSIGNER: URGENCY: STATUS: COMPLETED Date: Aug Division: [facility] referred by Pharmacy Call Center for medication renewal: Non-controlled/maintenan ce medication Medications requested: [id number] CELECOXIB 200MG CAP Defer to primary care provider To be mailed . Please review and renew if appropriate. *This note was generated by [facility] Pharmacy Customer Care. If you have any questions or need assistance, do not contact this author. Please refer all questions to your local, on-site pharmacy departments. /ivone/ ISIS RAMOS CPhT Fashion Consultant Sales, [place]/Pharmacy Customer Care Signed: 08/08/2023 20:10 Receipt Acknowledged By: 08/09/2023 08:10 /es/ BOY DELONG PA-C STAFF PHYSICIAN QUALITY ASSURANCE ASSESSOR 08/09/2023 09:45 /ivone/ Imelda Lutz RN Registered Nurse (RN) ISIS RAMOS [facility]
--- OUTSIDE RECORDS SUMMARY | 2024-06-06 08:11 | XMS_ITS | Encounter Summary ---
Author Name [facility] [place] Organization [place] Address [address] [place] [id number] Care Team Providers Care Registered Medical Assistant Name Role Phone BOY DELONG Primary [...] RX PRESCRIPT ION HEALT H [place] [facility] Mar 07, 2020 [facility] [id number] MARGARETH HONG RRYL PATIENT Selected Encounter This section includes the information on record at [place] for the Encounter. Date/Time Encounter Type Encounter Description Reason Provider Source Jun 10, 2023 11:30 AM OFFICE O/P EST MOD 30 MIN PRIMARY CARE/MEDICINE ICD-10-CM R73.9 Hyperglycemia, unspecified BOY DELONG Encounter Template Text not used by [place] [...] activities for the patient from all [place] [facility]. This section includes future appointments and future orders which are active, pending or scheduled. Future Appointments This section includes appointments that were scheduled to occur 6 months from the date of the Encounter, up to a maximum of 20 appointments. The data comes from all [facility]. Appointment Date/Time Appointment Type Appointme nt Facility Name Jun 17, 2023 08:00 AM AMBULATORY - PSYCHIATRY [facility] Jun 21, 2023 08:00 AM AMBULATORY - PSYCHIATRY [facility] Jun 24, 2023 11:00 AM AMBULATORY - NONE [place] [facility] [place] [place] [facility] Jun 24, 2023 11:30 AM AMBULATORY - REHAB MEDICIN [place] [facility] [place] [facility] July 22, 2023 01:00 PM AMBULATORY - PSYCHIATRY [facility] August 03, 2023 08:00 AM AMBULATORY - REHAB MEDICIN [facility] August 05, 2023 09:00 AM AMBULATORY - PSYCHIATRY [place] [facility] [place] [facility] August 05, 2023 03:00 PM AMBULATORY - PSYCHIATRY [place] [facility] [place] [facility] Aug 11, 2023 10:40 AM AMBULATORY - MEDICINE [place] [place] [facility] Aug 19, 2023 10:00 AM AMBULATORY - REHAB MEDICIN [facility] Sep 09, 2023 09:30 AM AMBULATORY - PSYCHIATRY [place] [facility] [place] [facility] Oct 14, 2023 09:30 AM AMBULATORY - PSYCHIATRY [place] [facility] [place] [facility] Oct 28, 2023 10:00 AM AMBULATORY - PSYCHIATRY [facility] [place] [facility] Nov 11, 2023 11:00 AM AMBULATORY - PSYCHIATRY [place] [facility] [place] [facility] Nov 14, 2023 03:00 PM AMBULATORY - MEDICINE [place] [facility] [place] [facility] Nov 17, 2023 08:00 AM AMBULATORY - MEDICINE [facility] [place] [facility] [...] Range Comment Jun 09, 2023 08:32 AM [place] VITAMIN D (25-OH) Specimen Type: SERUM No comment entered. Ordering Provider: BOY DELONG Report Released Date/Time: Dec 14, 2022 10:56 AM Reporting Lab: [address] [address] Performing Lab: [address] [address] VITAMIN D (25-OH) 21 ng/mL 20-50 Jun 09, 2023 08:32 AM [place] URINALYSIS Specimen Type: URINE Comment: If Glucose = >500 and Ketones are positive, please alert the Physician. Ordering Provider: BOY DELONG Report Released Date/Time: Dec 14, 2022 10:56 AM Reporting Lab: [address] [address] Performing Lab: [address] [address] UA COLOR Light-Yellow Yellow UA APPEARANCE Clear Clear UA GLUCOSE NEGATIVE mg/dL Negative UA KETONES NEGATIVE mg/dL Negative UA BLOOD NEGATIVE mg/dL Negative UA PROTEIN NEGATIVE mg/dL Negative UA NITRITE NEGATIVE mg/dL Negative UA BILIRUBIN NEGATIVE mg/dL Negative UA SPECIFIC GRAVITY 1.015 L 1.016-1.02 2 UA pH 5.5 5.0-9.0 UA UROBILINOGEN <2.0 mg/dL <2.0 UA LEUKOCYTE NEGATIVE Negative Jun 09, 2023 08:32 AM [place] VITAMIN B12 Specimen Type: SERUM No comment entered. Ordering Provider: BOY DELONG Report Released Date/Time: Dec 14, 2022 10:56 AM Reporting Lab: [address] [address] Performing Lab: [address] [address] VITAMIN B12 580 pg/mL 200-900 Jun 09, 2023 08:32 AM [place] FERRITIN Specimen Type: SERUM No comment entered. Ordering Provider: BOY DELONG Report Released Date/Time: Dec 14, 2022 10:56 AM Reporting [facility]: [facility] [address] [facility] [address] Performing [facility]: [facility] [address] [address] FERRITIN 199 ng/mL 20-300 Jun 09, 2023 08:32 AM [place] CBC AND DIFF (AUTO) Specimen Type: BLOOD No comment entered. Ordering Provider: BOY DELONG Report Released Date/Time: Dec 14, 2022 10:56 AM Reporting Lab: [facility] [address] [facility] [address] Performing Lab: [facility] [address] [address] WBC 4.38 10*3/uL L 4.50-11.00 RBC 5.42 10*6/uL 4.23-5.66 HGB 15.0 g/dL 12.8-17 HCT 44.9 39.2-50.4 MCV 82.8 fL 82-99 MCHC 33.4 g/dL 30.8-35.1 PLT 265 10*3/uL 140-360 RDW-CV 12.8 12.0-16.0 [place], Abs 0.37 10*3/uL 0.30-1.10 MCH 27.7 pg 26.2-32.6 Neut % 56.0 43.7-75.8 Lymph % 31.7 14.0-42.3 [place] % 8.4 5.1-13.7 Eos % 3.0 0.4-6.8 Baso % 0.7 0.1-2.0 Neut, Abs 2.45 10*3/uL 2.20-7.60 Lymph, Abs 1.39 10*3/uL 1.00-3.20 Eos, Abs 0.13 10*3/uL 0.03-0.44 Baso, Abs 0.03 10*3/uL 0.01-0.13 Immature Gran % 0.2 0.0-0.7 Immature Gran, Abs 0.01 10*3/uL 0.00-0.06 Jun 09, 2023 08:32 AM [place] RETICULOCYTES Specimen Type: BLOOD No comment entered. Ordering Provider: BOY DELONG Report Released Date/Time: Dec 14, 2022 10:56 AM Reporting Lab: [facility] [address] [facility] [address] Performing Lab: [facility] [address] [address] RETIC % 1.1 0.6-2.0 RETIC, ABS 61.8 10*3/uL 30.0-90.0 Ret-He % 31.3 27.9-42.0 Jun 09, 2023 08:32 AM [place] HEMOGLOBIN A1C PANEL Specimen Type: BLOOD Comment: [...] 2022 10:56 AM Reporting Lab: [facility] [address] [address] Performing Lab: [facility] [address] HEMOGLOBIN A1C 5.8 H 4.0-5.6 Jun 09, 2023 08:32 AM [place] TSH Specimen Type: SERUM No comment entered. Ordering Provider: BOY DELONG Report Released Date/Time: Dec 14, 2022 10:56 AM Reporting Lab: [facility] [address] [address] Performing Lab: [facility] [address] TSH 2.27 u[IU]/mL 0.35-5.00 Jun 09, 2023 08:32 AM [place] PSA Specimen Type: SERUM No comment entered. Ordering Provider: BOY DELONG Report Released Date/Time: Dec 14, 2022 10:56 AM Reporting Lab: [facility] [address] Performing Lab: [facility] [place] [address] PSA 2.13 ng/mL 0.00-4.00 Jun 09, 2023 08:32 AM [place] LIVER FUNCTION Specimen Type: SERUM No comment entered. Ordering Provider: BOY DELONG Report Released Date/Time: Dec 14, 2022 10:56 AM Reporting Lab: [address] [address] Performing Lab: [address] [address] PROTEIN,TOTAL 6.9 g/dL 6.0-8.3 ALBUMIN 4.0 g/dL 3.5-5.0 ALKALINE PHOSPHATASE 66 U/L 40-150 AST 19 U/L 5-34 ALT 27 U/L BILIRUBIN, TOTAL 0.5 mg/dL 0.2-1.2 Jun 09, 2023 08:32 AM [place] LIPID PANEL FASTING Specimen Type: SERUM No comment entered. Ordering Provider: BOY DELONG Report Released Date/Time: Dec 14, 2022 10:56 AM Reporting Lab: [address] [address] Performing Lab: [address] [address] CHOLESTEROL 173 mg/dL TRIGLYCERIDE 81 mg/dL 0-150 LDL calculated 118 mg/dL 0-129 CHOL/HDL 4.4 HDL CHOLESTEROL 39 mg/dL L 40-60 Jun 09, 2023 08:32 AM [place] BASIC METABOLIC PANEL (fasting) Specime n Type: SERUM No comment entered. Ordering Provider: BOY DELONG Report Released Date/Time: Dec 14, 2022 10:56 AM Reporting Lab: [address] [address] Performing Lab: [address] [address] UREA NITROGEN 15 mg/dL 7-25 GLUCOSE 113 mg/dL H 65-100 SODIUM 141 mmol/L 135-145 POTASSIUM 3.9 mmol/L 3.5-5.0 CHLORIDE 108 mmol/L 100-110 CO2 24 meq/L 20-30 CREATININE, Serum 1.17 mg/dL 0.50-1.40 eGFR(CKD-EPI 2020) 71 mL/min >60 Jun 09, 2023 08:32 AM [place] URIC ACID Specimen Type: SERUM No comment entered. Ordering Provider: BOY DELONG Report Released Date/Time: Dec 14, 2022 10:56 AM Reporting Lab: [address] [address] Performing Lab: [address] [address] URIC ACID 5.6 mg/dL 3.5-7.2 Jun 09, 2023 08:32 AM [place] CALCIUM Specimen Type: SERUM No comment entered. Ordering Provider: BOY DELONG Report Released Date/Time: Dec 14, 2022 10:56 AM Reporting Lab: [address] [address] Performing Lab: [address] [address] CALCIUM 8.8 mg/dL 8.5-10.2 Vital Signs: All taken on the encounter date This section contains inpatient and outpatient Vital Signs collected on the date of the Encounter. Date/Time Temperature Pulse Blood Pressure Respiratory Rate SP02 Pain Height Weight Body Mass Index Source Jun 10, 2023 11:38 AM [address] [place] Jun 10, 2023 11:37 AM 96.8 73 134/[address] [facility] Social History: Smoking Status (Most current) and Tobacco Use (All prior to encounter date) This section includes the most current, and the historical, smoking and tobacco- related health factors from the [place] facility where the Encounter took place. Current Smoking Status This section includes the most current smoking, or tobacco-related health factor, from the [place] facility where the Encounter took place. Date/Time Current Smoking Status Comment Matthew blankenship Jun 10, 2023 11:30 AM [place]-TOBACCO NEVER USED [place] Tobacco Use History This section includes a history of the smoking, or tobacco-related health factors, that were collected on or before the date of the Encounter. The data comes from the [place] facility where the Encounter took place. Date/Time Smoking Status/Tobacco Use Comment F acility May 14, 2022 11:30 AM [place]-TOBACCO NEVER USED [place] Mar 27, 2021 11:00 AM [place]-TOBACCO NEVER USED [place] Radiology Reports: +/- 30 days of the [...] 2023 10:59 AM ABDOMINAL ULTRASOUND: LUPILLO HONG [id number] -[id number] M Exm Date: JUN 24, 2023@10:59 Req Phys: BOY DELONG Loc: CWM/SO/PACT 3 WH (Req'g Loc) Img Loc: ULTRASOUND Service: Unknown (Case [id number] COMPLETE) real trends ABDOMEN [facility] (US Detailed) CPT:95396 Reason for Study: umbilical hernia Clinical History: need views before seeing karen trujillo Report Status: Verified Date Reported: JUN 25, 2023 Date Verified: JUN 25, 2023 Sap Bi Developer E-Sig: Report: real trends ABDOMEN [facility] [PRINTSET] Clinical History: Umbilical hernia. Comparison: None [...] containing hernia. READING PHYSICIAN: Mikhail Andrews MD -[id number] 06/24/2023 23:15 PDT [facility] National Teleradiology Program [phone] (For Medical Practitioner Use Only) Attention Patients / Veterans: If you have questions or concerns about these test results, please contact your ordering provider or primary care team. Primary Diagnostic Code: NO ALERT REQUIRED Primary Interpreting Staff: RADIOLOGY,OUTSIDE SERVICE, Staff Physician / RADIOLOGY,OUTSIDE SERVICE [place] [facility] Encounter Notes: All associated encounter notes This section contains the clinical notes associated to the Encounter. 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 /ivone/ BOY DELONG PA-C STAFF PHYSICIAN MENTAL HEALTH CASE MANAGER Signed: 06/10/2023 13:02 BOY DELONG
--- OUTSIDE RECORDS SUMMARY | 2024-06-06 08:11 | XMS_ITS | Encounter Summary ---
Author Name Department of [facility] [place] Organization [place] Address [address] [place] [address] Care Team Providers Care Body Line Finisher Name Role Phone BOY DELONG Primary Care [...] OPTUM RX PRESCRIPT ION HEALT H [facility] Mar 07, 2020 [facility] [id number] MARGARETH HONG RRYL PATIENT Selected Encounter This section includes the information on record at [place] for the Encounter. Date/Time Encounter Type Encounter Description Reason Provider Source August 05, 2023 09:00 AM MTMS BY PHARM ADDL 15 MIN [facility] - IND ICD-10-CM F32.1 Major depressive disorder, single episode, moderate PRETTY MEEHAN Rosibel Encounter Template Text not used by [place] Assessments - Encounter Diagnoses This section includes the primary and secondary diagnoses documented for the Encounter. Date/Time Primary/Secondary Diagnosis Diagnosis Name Provider Source August 05, 2023 09:59 AM PRIMARY Major depressive disorder, single episode, moderate PRETTY MEEHAN [facility] Plan of Treatment: Future Appointments (+ 6 months) and Future Tests (+/- 45 days) The Plan of Treatment section includes future care activities for the patient from all [facility] This section includes future appointments and [...] - MEDICINE [facility] [place] [facility] Aug 19, 2023 10:00 AM [facility] Sep 09, 2023 09:30 AM AMBULATORY - PSYCHIATRY [facility] [place] [facility] Oct 14, 2023 09:30 AM AMBULATORY - PSYCHIATRY [facility] [facility] Oct 28, 2023 10:00 AM AMBULATORY - PSYCHIATRY [facility] [place] [facility] Nov 11, 2023 11:00 AM AMBULATORY - PSYCHIATRY [facility] [facility] Nov 14, 2023 03:00 PM AMBULATORY - MEDICINE [facility] [place] [facility] Nov 17, 2023 08:00 AM AMBULATORY - MEDICINE [place] [facility] [place] [facility] Jan 06, 2024 10:00 AM AMBULATORY - MEDICINE [facility] Jan 10, 2024 11:15 AM AMBULATORY - NONE [facility] [place] [facility] Jan 10, 2024 11:30 AM AMBULATORY - NONE [facility] [facility] Jan 13, 2024 10:00 AM AMBULATORY - PSYCHIATRY [facility] [place] [facility] Jan 13, 2024 01:00 PM AMBULATORY - MEDICINE [facility] [place] [facility] Feb 03, 2024 03:30 PM [facility] Encounter Notes: All associated encounter notes [...] okay reports the following regarding medications: -N--Y- [ [...] following review of all active psychotropic and ENTERPRISE MOBILITY ARCHITECT-active agents is to ensure pharmacotherapy is evaluated [...] Other: RTC Interval: every 4-6weeks Next Apt: [id number] was provided filing writer's contact information and instructed to contact filing writer as needed for any changes to scheduling or concerns otherwise. [place] is aware of actions to take if they feel unsafe, including calling the [facility] Crisis Line (#[phone]); calling 911; or going to the nearest urgent care or emergency room. The is also aware of how to contact the clinic should the require additional services prior to the next appointment. Time spent on chart review, session, and documentation: 60minutes /ivone/ Dieudonne Meehan PharmD Clinical Pharmacist Practitioner Signed: 08/12/2023 16:28 DIEUDONNE MEEHAN MD [facility]
--- OUTSIDE RECORDS SUMMARY | 2024-06-06 08:11 | XMS_ITS | Encounter Summary ---
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 Date/Time Encounter Type Encounter Description Reason Provider Source Feb 03, 2024 03:30 PM OFFICE O/P EST MOD 30 MIN PRIMARY CARE/MEDICINE ICD-10-CM M54.30 Sciatica, unspecified side BOY DELONG Encounter Template Text not used by [place] [...] activities for the patient from all [place] [facility] This section includes future appointments and future orders which are active, pending or scheduled. Future Appointments This section includes appointments that were scheduled to occur 6 months from the date of the Encounter, up to a maximum of 20 appointments. The data comes from all [facility]. Appointment Date/Time Appointment Type Appointme nt Facility Name Mar 01, 2024 11:00 AM AMBULATORY - MEDICINE [place] [facility] [place] [facility] [place] [facility] Apr 06, 2024 10:00 AM [facility] Apr 10, 2024 09:00 AM [facility] May 15, 2024 09:00 AM [facility] [place] [facility] May 15, 2024 10:30 AM AMBULATORY - MEDICINE [facility] NTRL [facility] May 28, 2024 10:30 AM AMBULATORY MEDICINE [facility] [place] [facility] July 10, 2024 10:00 AM AMBULATORY PS[facility] Active, Pending, and Scheduled Orders This section includes a listing of several types of active, pending, and scheduled orders, including clinic medications orders, diagnostic test orders, procedure orders and consult orders; where the start date of the order is 45 days before the date of the Encounter or 45 days after the date of theEncounter. The data comes from all [facility]. Test Date/Time Test Type Test Details Facility Name Jan 13, 2024 01:37 PM Consult Order [facility]GICAL Cons Purchasing/Receiving's Choice [facility] Lab Results: +/- 30 days of [...] Range Comment Feb 16, 2024 11:13 AM [facility] HLA-B27 (QU) Specimen Type: BLOOD Comment: Test Performed by [facility], [address] [place], [place] Rajesh Doss M.D., Ph.D., Director of Laboratories , CLIA [id number] TEST PERFORMED AT: , Ordering Provider: BOY DEOLNG Report Released Date/Time: Feb 03, 2024 03:52 PM Reporting Lab: [facility] [address] [facility] [address] Performing Lab: [facility] [address] [address] HLA-B27 Negative Negative Feb 16, 2024 11:13 AM [facility] RHEUMATOID FACTOR Specimen Type: SERUM No comment entered. Ordering Provider: BOY DELONG Report Released Date/Time: Feb 03, 2024 03:52 PM Reporting Lab: [facility] [address] [facility] [address] Performing Lab: [facility] [address] [facility] [address] RHEUMATOID FACTOR <15 0-15 Feb 16, 2024 11:13 AM [facility] MICHA SCREEN/TITER Specimen Type: SERUM Comment: 2+ Cytoplasmic staining observed. Ordering Provider: BOY DELONG Report Released Date/Time: Feb 03, 2024 03:52 PM Reporting Lab: [facility] [address] [facility] [address] Performing Lab: [facility] [address] [facility] [address] MICHA SCREEN NEG NEG <1:40 Feb 16, 2024 11:13 AM [facility] C REACTIVE PROTEIN HS (WROX) Specimen T ype: SERUM Comment: Reference range changed on 08/25/10 [facility] reference ranges for ages >17 years: [...] Feb 03, 2024 03:52 PM Reporting Lab: [facility] [address] [facility] [address] Performing Lab: [facility] [address] [facility] [address] C REACTIVE PROTEIN HS (WROX) 6.46 mg/L See eval. Feb 16, 2024 11:13 AM [facility] SED RATE, AUTOMATED Specimen Type: BLOOD No comment entered. Ordering Provider: BOY DELONG Report Released Date/Time: Feb 03, 2024 03:52 PM Reporting Lab: [facility] [address] [facility] [address] Performing Lab: [address] [address] SED RATE, AUTOMATED 3 mm/h 0-20 Jan 06, 2024 10:11 AM [facility] MICROALBUMIN CREATININE RATIO PANEL Spe cimen Type: URINE No comment entered. Ordering Provider: BOY DELONG Report Released Date/Time: Nov 23, 2023 08:33 AM Reporting Lab: [address] [address] Performing Lab: [facility] [address] [facility] [address] MICROALBUMIN/C REATININE RATIO 13.8 mg/g 0-29.9 MICROALBUMIN,Q UANTITATIVE 2.5 mg/dL RR UNAVAIL CREATININE URINE 180.82 mg/dL Jan 06, 2024 10:11 AM [facility] URINALYSIS Specimen Type: URINE Comment: If Glucose = >500 and Ketones are positive, please alert the Physician. Ordering Provider: BOY DELONG Report Released Date/Time: Nov 23, 2023 08:33 AM Reporting Lab: [facility] [address] [facility] [address] Performing Lab: [address] [address] UA COLOR Light-Yellow Yellow UA APPEARANCE Clear Clear UA GLUCOSE Normal mg/dL Negative UA KETONES NEGATIVE mg/dL Negative UA BLOOD NEGATIVE mg/dL Negative UA PROTEIN 10 mg/dL Negative UA NITRITE NEGATIVE mg/dL Negative UA BILIRUBIN NEGATIVE mg/dL Negative UA SPECIFIC GRAVITY 1.024 H 1.016-1.02 2 UA pH 5.5 5.0-9.0 UA UROBILINOGEN Normal mg/dL <2.0 UA LEUKOCYTE NEGATIVE Negative Jan 06, 2024 09:55 AM [facility] URIC ACID Specimen Type: SERUM No comment entered. Ordering Provider: BOY DELONG Report Released Date/Time: Nov 23, 2023 08:33 AM Reporting Lab: [facility] [address] Performing Lab: [address] [address] URIC ACID 5.7 mg/dL 3.5-7.2 Jan 06, 2024 09:55 AM [facility] CALCIUM Specimen Type: SERUM No comment entered. Ordering Provider: BOY DELONG Report Released Date/Time: Nov 23, 2023 08:33 AM Reporting Lab: [facility] [address] Performing Lab: [facility] [address] CALCIUM 9.0 mg/dL 8.5-10.2 Jan 06, 2024 09:55 AM [facility] BASIC METABOLIC PANEL (fasting) Specime n Type: SERUM No comment entered. Ordering Provider: BOY DELONG Report Released Date/Time: Nov 23, 2023 08:33 AM Reporting Lab: [facility] [address] [address] Performing Lab: [facility]ENUSE[address] [address] UREA NITROGEN 18 mg/dL 7-25 GLUCOSE 108 mg/dL H 65-100 SODIUM 140 mmol/L 135-145 POTASSIUM 3.9 mmol/L 3.5-5.0 CHLORIDE 111 mmol/L H 100-110 CO2 21 meq/L 20-30 CREATININE, Serum 1.13 mg/dL 0.50-1.40 eGFR(CKD-EPI 2020) 74 mL/min >60 Jan 06, 2024 09:55 AM [facility] LIVER FUNCTION Specimen Type: SERUM No comment entered. Ordering Provider: BOY DELONG Report Released Date/Time: Nov 23, 2023 08:33 AM Reporting Lab: [facility] [address] [facility] [address] Performing Lab: [facility]ILDRENUSE[address] [address] PROTEIN,TOTAL 6.8 g/dL 6.0-8.3 ALBUMIN 3.9 g/dL 3.5-5.0 ALKALINE PHOSPHATASE 66 U/L 40-150 AST 21 U/L 5-34 ALT 34 U/L BILIRUBIN, TOTAL 0.4 mg/dL 0.2-1.2 Jan 06, 2024 09:55 AM [facility] LIPID PANEL FASTING Specimen Type: SERUM No comment entered. Ordering Provider: BOY DELONG Report Released Date/Time: Nov 23, 2023 08:33 AM Reporting Lab: [facility] [address] [address] Performing Lab: [facility] [address] [address] CHOLESTEROL 168 mg/dL TRIGLYCERIDE 70 mg/dL 0-150 LDL calculated 115 mg/dL 0-129 CHOL/HDL 4.3 HDL CHOLESTEROL 39 mg/dL L 40-60 Jan 06, 2024 09:55 AM [facility] VITAMIN D (25-OH) Specimen Type: SERUM No comment entered. Ordering Provider: BOY DELONG Report Released Date/Time: Nov 23, 2023 08:33 AM Reporting Lab: [facility] [address] [address] Performing Lab: [facility]ILDRENUSE[address] [address] VITAMIN D (25-OH) 23 ng/mL 20-50 Jan 06, 2024 09:55 AM [facility] FERRITIN Specimen Type: SERUM No comment entered. Ordering Provider: BOY DELONG Report Released Date/Time: Nov 23, 2023 08:33 AM Reporting Lab: [facility]IL[facility]ENUSE[address] [address] Performing Lab: [address] [address] FERRITIN 214 ng/mL 20-300 Jan 06, 2024 09:55 AM [facility] VITAMIN B12 Specimen Type: SERUM No comment entered. Ordering Provider: BOY DELONG Report Released Date/Time: Nov 23, 2023 08:33 AM Reporting Lab: [facility] [address] [facility] [address] Performing Lab: [facility] [address] [address] VITAMIN B12 636 pg/mL 200-900 Jan 06, 2024 09:55 AM [facility] PSA Specimen Type: SERUM No comment entered. Ordering Provider: BOY DELONG Report Released Date/Time: Nov 23, 2023 08:33 AM Reporting Lab: [facility] [address] [address] Performing Lab: [facility] [address] [address] PSA 1.09 ng/mL 0.00-4.00 Jan 06, 2024 09:55 AM [facility] CBC AND DIFF (AUTO) Specimen Type: BLOOD No comment entered. Ordering Provider: BOY DELONG Report Released Date/Time: Nov 23, 2023 08:33 AM Reporting Lab: [facility] [address] [address] Performing Lab: [facility] [address] [address] WBC 3.76 10*3/uL L 4.50-11.00 RBC 5.35 [...] 10*3/uL 0.00-0.00 Jan 06, 2024 09:55 AM [facility] HEMOGLOBIN A1C PANEL Specimen Type: BLOOD Comment: [...] Nov 23, 2023 08:33 AM Reporting Lab: [facility] [address] [address] Performing Lab: [facility] [address] [address] HEMOGLOBIN A1C 5.5 4.0-5.6 Jan 06, 2024 09:55 AM [facility] TSH Specimen Type: SERUM No comment entered. Ordering Provider: BOY DELONG Report Released Date/Time: Nov 23, 2023 08:33 AM Reporting Lab: [facility] [address] [address] Performing Lab: [address] [address] TSH 3.01 u[IU]/mL 0.35-5.00 Vital Signs: All taken on the encounter date This section contains inpatient and outpatient Vital Signs collected on the date of the Encounter. Date/Time Temperature Pulse Blood Pressure Respiratory Rate SP02 Pain Height Weight Body Mass Index Source Feb 03, 2024 03:59 PM 97 [place] Feb 03, 2024 03:58 PM 78 130/88 [address] [facility] [place] Social History: Smoking Status (Most current) and Tobacco Use (All prior to encounter date) This section includes the most current, and the historical, smoking and tobacco- related health factors from the [place] facility where the Encounter took place. Current Smoking Status This section includes the most current smoking, or tobacco-related health factor, from the [place] facility where the Encounter took place. Date/Time Current Smoking Status Comment Matthew ity Jun 10, 2023 11:30 AM [place]-TOBACCO NEVER USED [facility] Tobacco Use History This section includes a history of the smoking, or tobacco-related health factors, that were collected on or before the date of the Encounter. The data comes from the [place] facility where the Encounter took place. Date/Time Smoking Status/Tobacco Use Comment F acility May 14, 2022 11:30 AM [place]-TOBACCO NEVER USED [facility] Mar 27, 2021 11:00 AM [place]-TOBACCO NEVER USED [facility] Radiology Reports: +/- 30 days of the [...] AM KNEE 3 VIEWS (LEFT): LUPILLO HONG [id number] -1960 M Ex Date: JAN 10, 2024@11:27 Req Phys: BOY DELONG Loc: CWM/SO/PACT 3 WH (Req'g Loc) Img Loc: [facility] 1 Service: [place] [address] (Case [id number] COMPLETE) KNEE 3 VIEWS (LEFT) (RAD Detailed) CPT:60474 Reason for Study: left knee pain Clinical History: any OA or joint erosions? did have gout L knee Report Status: Verified Date Reported: JAN 10, 2024 Date Verified: JAN 10, 2024 Renewable Energy Engineer E-Sig: Report: KNEE 3 VIEWS (LEFT) [...] the right knee demonstrates severe medial and ontu-ce-nxuwivwz lateral tibiofemoral compartment joint degeneration, similar to [...] to prior. READING PHYSICIAN: Karon Blount M.D. -[phone] 01/10/2024 11:58 EST [facility] National Teleradiology Program [phone] (For Medical Practitioner Use Only) Attention Patients / Veterans: If you have questions or concerns about these test results, please contact your ordering provider or primary care team. Primary Diagnostic Code: NO ALERT REQUIRED Primary Interpreting Staff: RADIOLOGY,OUTSIDE SERVICE, Staff Physician / RADIOLOGY,OUTSIDE SERVICE [facility] Jan 10, 2024 11:[address] MAXILLOFACIAL W/O CONT: LUPILLO HONG [id number] -1960 M [facility] Date: JAN 10, 2024@11:15 Req Phys: BOY DELONG Loc: CWM/SO/PACT 3 WH (Req'g Loc) Img Loc: NHM/CT Service: Unknown [place] [address] (Case [id number] COMPLETE) CT MAXILLOFACIAL W/O CONT (CT Detailed) CPT:66843 Reason for Study: post nasal drip Clinical History: always cleasring thraot Report Status: Verified Date Reported: JAN 10, 2024 Date Verified: JAN 10, 2024 Renewable Energy Engineer E-Sig: Report: MAXILLOFACIAL CT WITHOUT IV CONTRAST/CT OF THE PARANASAL SINUSES WITHOUT IV CONTRAST: INDICATION: Post nasal drip. Patient reportedly always clearing throat. TECHNIQUE: Volumetric CT acquisition through the maxillofacial structures/paranasal sinuses, with axial, coronal and sagittal reformats, was performed at the local [place] facility. 159 images were received by the [place] National Teleradiology Program (NTP) for interpretation. RADIATION [...] commentary as above. READING PHYSICIAN: Boy Sun -[phone] 01/10/2024 16:06 [facility] National Teleradiology Program [phone] (For Medical Practitioner Use Only) Attention Patients / Veterans: If you have questions or concerns about these test results, please contact your ordering provider or primary care team. Primary Diagnostic Code: NO ALERT REQUIRED Primary Interpreting Staff: RADIOLOGY,OUTSIDE SERVICE, Staff Physician / RADIOLOGY,OUTSIDE SERVICE [facility] Jan 10, 2024 11:[address] THORAX W/O CONT: GELYLUPILLOVIET REIS [id number] -1960 M Exm Date: JAN 10, 2024@11:15 Req Phys: BOY DELONG Loc: CWM/SO/PACT 3 WH (Req'g Loc) Img Loc: NHM/CT Service: [place] [address] (Case 84 COMPLETE) CT THORAX W/O CONT (CT Detailed) CPT:32392 Reason for Study: chest tightness Clinical History: post nasal drip coughing echo and ekg of heart neg for cardiac pathology back in may 2023 any signs interstitial lung disease? Report Status: Verified Date Reported: JAN 10, 2024 Date Verified: JAN 10, 2024 Renewable Energy Engineer E-Sig: Report: CT OF THE CHEST WITHOUT IV CONTRAST INDICATION: Chest tightness, post nasal drip, coughing. Assess for signs of interstitial lung disease. TECHNIQUE: Volumetric CT acquisition through the chest, with axial, coronal and sagittal reformats, was performed at the local [place] facility. 1194 images were received by the [place] National Teleradiology Program (NTP) for interpretation. RADIATION [...] as detailed above. READING PHYSICIAN: Boy Sun -[phone] 01/10/2024 17:01 [facility] National Teleradiology Program [phone] (For Medical Practitioner Use Only) Attention Patients / Veterans: If you have questions or concerns about these test results, please contact your ordering provider or primary care team. Primary Diagnostic Code: SIGNIFICANT ABNORMALITY, ATTN NEEDED Primary Interpreting Staff: RADIOLOGY,OUTSIDE SERVICE, Staff Physician / RADIOLOGY,OUTSIDE SERVICE [place] [facility] Encounter Notes: All associated encounter notes This section contains the clinical notes associated to the Encounter. Date/Time Encounter Note(s) Provider Source Mar 02, 2024 08:53 AM LETTERS: LOCAL TITLE: PATIENT LETTER (T) STANDARD TITLE: LETTERS DATE OF NOTE: MAR 02, 2024@08:53 ENTRY DATE: MAR 02, 2024@08:53:28 AUTHOR: BOY DELONG EXP COSIGNER: URGENCY: STATUS: COMPLETED DEPARTMENT OF [facility] Toll Free Number Primary Care Telephone Assistance can be reached at extension [phone] [facility] scheduling can be reached at extension [phone] [facility] scheduling can be reached at ext [phone] LUPILLO HONG [address] [place], [place], [address] Dear Mr. Hong, Maybe I am wrong. I thought we had an appointment to discuss your lab tests, etc.. Sugar, liver, kidney, cholesterol: all normal. White, red blood cells: all normal. Prostate: normal. Arthritis Tests: one test shows signs of arthritis (which you do have in your back and knee) Any questions? Please make appointment. BOY DELONG Physician Lead Sql Developer Sincerely, Your Primary Care Team [facility] [address] [facility] [address] [place] [address] [place] [address] [phone] [facility] [address] [place] [address] [place] [address] [phone] [facility] [address] [facility] [place] [address] [place] [address] BOY DELONG [facility] Feb 03, 2024 03:59 PM PREVENTIVE MEDICIN E NURSING NOTE: LOCAL TITLE: CLINICAL REMINDERS/NURSING STANDARD TITLE: PREVENTIVE MEDICINE NURSING NOTE DATE OF NOTE: FEB 03, 2024@15:59 ENTRY DATE: FEB 03, 2024@15:59:41 AUTHOR: DRE PEREIRA EXP COSIGNER: URGENCY: STATUS: COMPLETED Nursing Clinical Reminders not due this visit. /ivone/ DRE PEREIRA LPN LPN Signed: 02/03/2024 16:00 DRE PEREIRA [facility] Feb 03, 2024 03:46 PM PHYSICIAN ASSISTAN T NOTE: LOCAL TITLE: PA NOTE STANDARD TITLE: PHYSICIAN WILL CALL ORDER CLERK NOTE DATE OF NOTE: FEB 03, 2024@15:46 ENTRY DATE: FEB 03, 2024@15:46:06 AUTHOR: BOY DELONG EXP COSIGNER: URGENCY: STATUS: COMPLETED S - here to review labs, rads O - LABS: reviewed w/ pt RADS: reviewed w/ pt A/P - Degen Arthritis L-Spine and Sciatica (X-Ray of L-Spine Done 2021) - CON: PT OA, Both Knees - CON: Ortho Eval pending Any Rheumatologic Reason for Diffuse Arthralgias? - LABS: Rheum-Oriented Labs Chronic Rhino-Sinusitis - RADS: Maxilo-Fac CT [place] DEC 28: Minimal Mucosal Thickening CT of Lungs DEC 28 [place] Neg for Intersitial Lung Disease or Identifiable [...] of active outpatient prescriptions dispensed from this [place] (local) and dispensed from another [place] or [facility] facility (remote) as well as inpatient [...] provider. /ivone/ BOY DELONG PA-C STAFF PHYSICIAN WILL CALL ORDER CLERK Signed: 02/03/2024 16:07 BOY DELONG
--- OUTSIDE RECORDS SUMMARY | 2024-06-06 08:11 | XMS_ITS ---
Author Name [facility] [place] [facility] [place] [facility] [place] Address [address] [place] [address] Care Team Providers Care Purchasing Buyer Name Role Phone BOY DELONG Primary Care [...] OPTUM RX PRESCRIPT ION HEALT H [facility] Mar 07, 2020 [facility] [id number] MARGARETH HONG RRYL PATIENT Selected Encounter [...] depressive disorder, single episode, moderate PRETTY MEEHAN [facility] Plan of Treatment: Future Appointments (+ 6 months) and Future Tests (+/- 45 days) The Plan of Treatment section includes future care activities for the patient from all [place] [facility] This section includes future appointments and future orders which are active, pending or scheduled. Future Appointments This section includes appointments that were scheduled to occur 6 months from the date of the Encounter, up to a maximum of 20 appointments. The data comes from all [facility]. Appointment Date/Time Appointment Type Appointme nt Facility Name Feb 03, 2024 03:30 PM [facility] Mar 01, 2024 11:00 AM AMBULATORY - MEDICINE [place] [facility] [place] [facility] Apr 06, 2024 10:00 AM AMBULATORY - PSYCHIATRY [place] [facility] [place] [facility] Apr 10, 2024 09:00 AM AMBULATORY PSYCHIATRY [place] [facility] [place] [facility] May 15, 2024 09:00 AM AMBULATORY PSYCHIATRY [place] [facility] [place] [facility] May 15, 2024 10:30 AM AMBULATORY - MEDICINE DC [facility] [place] [facility] May 28, 2024 10:30 AM AMBULATORY - MEDICINE DC [facility] [place] [facility] July 10, 2024 10:00 AM AMBULATORY PSYCHIATRY [place] [facility] [place] [facility] Active, Pending, and Scheduled Orders This section includes a listing of several types of active, pending, and scheduled orders, including clinic medications orders, diagnostic test orders, procedure orders and consult orders; where the start date of the order is 45 days before the date of the Encounter or 45 days after the date of theEncounter. The data comes from all [facility]. Test Date/Time Test Type Test Details Facility Name Jan 13, 2024 01:37 PM Consult Order COMMUNITY CARE-ORTHO SURGICAL Cons [employer] Baller[employer] Choice [facility] [place] [facility] Lab [...] Range Comment Jan 06, 2024 10:11 AM [place] MICROALBUMIN CREATININE RATIO PANEL Spe cimen Type: URINE No comment entered. Ordering Provider: BOY DELONG Report Released Date/Time: Nov 23, 2023 08:33 AM Reporting Lab: [address] [address] Performing Lab: [address] [address] MICROALBUMIN/C REATININE RATIO 13.8 mg/g 0-29.9 MICROALBUMIN,Q UANTITATIVE 2.5 mg/dL RR UNAVAIL CREATININE URINE 180.82 mg/dL Jan 06, 2024 10:11 AM [place] URINALYSIS Specimen Type: URINE Comment: If Glucose = >500 and Ketones are positive, please alert the Physician. Ordering Provider: BOY DELONG Report Released Date/Time: Nov 23, 2023 08:33 AM Reporting Lab: [address] [address] Performing Lab: [address] [address] UA COLOR Light-Yellow Yellow UA APPEARANCE Clear Clear UA GLUCOSE Normal mg/dL Negative UA KETONES NEGATIVE mg/dL Negative UA BLOOD NEGATIVE mg/dL Negative UA PROTEIN 10 mg/dL Negative UA NITRITE NEGATIVE mg/dL Negative UA BILIRUBIN NEGATIVE mg/dL Negative UA SPECIFIC GRAVITY 1.024 H 1.016-1.022 UA pH 5.5 5.0-9.0 UA UROBILINOGEN Normal mg/dL <2.0 UA LEUKOCYTE NEGATIVE Negative Jan 06, 2024 09:55 AM [place] URIC ACID Specimen Type: SERUM No comment entered. Ordering Provider: BOY DELONG Report Released Date/Time: Nov 23, 2023 08:33 AM Reporting Lab: [address] [address] Performing Lab: [address] [address] URIC ACID 5.7 mg/dL 3.5-7.2 Jan 06, 2024 09:55 AM [place] BASIC METABOLIC PANEL (fasting) Specime n Type: SERUM No comment entered. Ordering Provider: BOY DELONG Report Released Date/Time: Nov 23, 2023 08:33 AM Reporting Lab: [facility] [address] [facility] [address] Performing Lab: [address] [address] UREA NITROGEN 18 mg/dL 7-25 GLUCOSE 108 mg/dL H 65-100 SODIUM 140 mmol/L 135-145 POTASSIUM 3.9 mmol/L 3.5-5.0 CHLORIDE 111 mmol/L H 100-110 CO2 21 meq/L 20-30 CREATININE, Serum 1.13 mg/dL 0.50-1.40 eGFR(CKD-EPI 2020) 74 mL/min >60 Jan 06, 2024 09:55 AM [place] CALCIUM Specimen Type: SERUM No comment entered. Ordering Provider: BOY DELONG Report Released Date/Time: Nov 23, 2023 08:33 AM Reporting Lab: [address] [address] Performing Lab: [address] [address] CALCIUM 9.0 mg/dL 8.5-10.2 Jan 06, 2024 09:55 AM [place] LIVER FUNCTION Specimen Type: SERUM No comment entered. Ordering Provider: BOY DELONG Report Released Date/Time: Nov 23, 2023 08:33 AM Reporting Lab: [address] [address] Performing Lab: [address] [address] PROTEIN,TOTAL 6.8 g/dL 6.0-8.3 ALBUMIN 3.9 g/dL 3.5-5.0 ALKALINE PHOSPHATASE 66 U/L 40-150 AST 21 U/L 5-34 ALT 34 U/L BILIRUBIN, TOTAL 0.4 mg/dL 0.2-1.2 Jan 06, 2024 09:55 AM [place] LIPID PANEL FASTING Specimen Type: SERUM No comment entered. Ordering Provider: BOY DELONG Report Released Date/Time: Nov 23, 2023 08:33 AM Reporting Lab: [address] [address] Performing Lab: [address] [place] [address] CHOLESTEROL 168 mg/dL TRIGLYCERIDE 70 mg/dL 0-150 LDL calculated 115 mg/dL 0-129 CHOL/HDL 4.3 HDL CHOLESTEROL 39 mg/dL L 40-60 Jan 06, 2024 09:55 AM [place] VITAMIN D (25-OH) Specimen Type: SERUM No comment entered. Ordering Provider: BOY DELONG Report Released Date/Time: Nov 23, 2023 08:33 AM Reporting Lab: [facility] [address] [facility] [address] Performing Lab: [facility] [address] VITAMIN D (25-OH) 23 ng/mL 20-50 Jan 06, 2024 09:55 AM [place] FERRITIN Specimen Type: SERUM No comment entered. Ordering Provider: BOY DELONG Report Released Date/Time: Nov 23, 2023 08:33 AM Reporting Lab: [facility] [address] [address] Performing Lab: [facility] [address] FERRITIN 214 ng/mL 20-300 Jan 06, 2024 09:55 AM [place] VITAMIN B12 Specimen Type: SERUM No comment entered. Ordering Provider: BOY DELONG Report Released Date/Time: Nov 23, 2023 08:33 AM Reporting Lab: [facility] [address] Performing Lab: [facility] [address] VITAMIN B12 636 pg/mL 200-900 Jan 06, 2024 09:55 AM [place] PSA Specimen Type: SERUM No comment entered. Ordering Provider: BOY DELONG Report Released Date/Time: Nov 23, 2023 08:33 AM Reporting Lab: [facility] [address] [address] Performing Lab: [facility] [address] PSA 1.09 ng/mL 0.00-4.00 Jan 06, 2024 09:55 AM [place] CBC AND DIFF (AUTO) Specimen Type: BLOOD No comment entered. Ordering Provider: BOY DELONG Report Released Date/Time: Nov 23, 2023 08:33 AM Reporting Lab: [facility] [address] [facility] [address] Performing Lab: [facility] [address] [facility] [address] WBC 3.76 10*3/uL L 4.50-11.00 RBC 5.35 [...] 10*3/uL 0.00-0.00 Jan 06, 2024 09:55 AM [place] HEMOGLOBIN A1C PANEL Specimen Type: BLOOD Comment: [...] Nov 23, 2023 08:33 AM Reporting Lab: [address] [address] Performing Lab: [address] [address] HEMOGLOBIN A1C 5.5 4.0-5.6 Jan 06, 2024 09:55 AM [place] TSH Specimen Type: SERUM No comment entered. Ordering Provider: BOY DELONG Report Released Date/Time: Nov 23, 2023 08:33 AM Reporting Lab: [address] [address] Performing Lab: [address] [address] TSH 3.01 u[IU]/mL 0.35-5.00 Vital Signs: All taken on the encounter date This section contains inpatient and outpatient Vital Signs collected on the date of the Encounter. Date/Time Temperature Pulse Blood Pressure Respiratory Rate SP02 Pain Height Weight Body Mass Index Source Jan 13, 2024 01:11 PM 124/70 3 [facility] Radiology Reports: +/- 30 days of [...] 11:27 AM KNEE 3 VIEWS (LEFT): GELYLUPILLO [id number] -1960 M Exm Date: JAN 10, 2024@11:27 Req Phys: BOY DELONG Loc: CWM/SO/PACT 3 WH (Req'g Loc) Img Loc: [facility]/BUILDING 1 Service: [place] [address] (Case [id number] COMPLETE) KNEE 3 VIEWS (LEFT) (RAD Detailed) CPT:40352 Reason for Study: left knee pain Clinical History: any OA or joint erosions? did have gout L knee Report Status: Verified Date Reported: JAN 10, 2024 Date Verified: JAN 10, 2024 Logistician E-Sig: Report: KNEE 3 VIEWS (LEFT) COMPARISON: [...] the right knee demonstrates severe medial and [id number] lateral tibiofemoral compartment joint degeneration, similar to [...] to prior. READING PHYSICIAN: Karon Blount M.D. -[id number] 01/10/2024 11:58 EST [facility] National Teleradiology Program [phone] (For Medical Practitioner Use Only) Attention Patients / Veterans: If you have questions or concerns about these test results, please contact your ordering provider or primary care team. Primary Diagnostic Code: NO ALERT REQUIRED Primary Interpreting Staff: RADIOLOGY,OUTSIDE SERVICE, Staff Physician / RADIOLOGY,OUTSIDE SERVICE [place] [facility] [place] [facility] Jan 10, 2024 11:[address] MAXILLOFACIAL W/O CONT: LUPILLO HONG [id number] -1960 M Exm Date: JAN 10, 2024@11:15 Req Phys: BOY DELONG Loc: CWM/SO/PACT 3 WH (Req'g Loc) Img Loc: [facility]/CT Service: Unknown [place] [facility] [place] [facility] [place] [address] (Case [id number] COMPLETE) CT MAXILLOFACIAL W/O CONT (CT Detailed) CPT:19030 Reason for Study: post nasal drip Clinical History: always cleasring thraot Report Status: Verified Date Reported: JAN 10, 2024 Date Verified: JAN 10, 2024 Logistician E-Sig: Report: MAXILLOFACIAL CT WITHOUT IV CONTRAST/CT [...] commentary as above. READING PHYSICIAN: Boy Sun -[id number] 01/10/2024 16:06 EST [facility] National Teleradiology Program [phone] (For Medical Practitioner Use Only) Attention Patients / Veterans: If you have questions or concerns about these test results, please contact your ordering provider or primary care team. Primary Diagnostic Code: NO ALERT REQUIRED Primary Interpreting Staff: RADIOLOGY,OUTSIDE SERVICE, Staff Physician / RADIOLOGY,OUTSIDE SERVICE [facility] Jan 10, 2024 11:[address] THORAX W/O CONT: LUPILLO HONG [id number] -1960 M Exm Date: JAN 10, 2024@11:15 Req Phys: BOY DELONG Loc: CWM/SO/PACT 3 WH (Req'g Loc) Img Loc: [facility]/CT Service: Unknown [facility] [address] (Case [id number] COMPLETE) CT THORAX W/O CONT (CT Detailed) CPT:78006 Reason for Study: chest tightness Clinical History: post nasal drip coughing echo and ekg of heart neg for cardiac pathology back in may 2023 any signs interstitial lung disease? Report Status: Verified Date Reported: JAN 10, 2024 Date Verified: JAN 10, 2024 Logistician E-Sig: Report: CT OF THE CHEST WITHOUT [...] as detailed above. READING PHYSICIAN: Boy Sun -[phone] 01/10/2024 17:01 [facility] National Teleradiology Program [phone] (For Medical Practitioner Use Only) Attention Patients / Veterans: If you have questions or concerns about these test results, please contact your ordering provider or primary care team. Primary Diagnostic Code: SIGNIFICANT ABNORMALITY, ATTN NEEDED Primary Interpreting Staff: RADIOLOGY,OUTSIDE SERVICE, Staff Physician / RADIOLOGY,OUTSIDE SERVICE [facility] Encounter Notes: All associated encounter notes This section contains the clinical notes associated to the Encounter. Date/Time Encounter Note(s) Provider Source Jan 13, 2024 10:07 AM PHARMACY MEDICATION MGT NOTE: LOCAL TITLE: CLINICAL PHARMACIST ALEXIA F/U NOTE STANDARD TITLE: PHARMACY MEDICATION MGT NOTE DATE OF NOTE: JAN 13, 2024@10:07 ENTRY DATE: JAN 13, 2024@10:08:01 AUTHOR: ASHOK MEEHAN COSIGNER: URGENCY: STATUS: COMPLETED CLINICAL PHARMACIST ALEXIA F/U NOTE Has ADDENDA [place] Video Connect (VVC) Standard Documentation VVC Clinician Resources Only: E911 (Emergency Call Relay Center): [phone] National Veterans Crisis Line - 988 then press #1. NEVALeandro Suicide Coordinator [phone], Ext. [phone]; Back-up Ext. [phone] [place] Police, [place] [phone] Introduction: Visit is being conducted by [place] [employer]. identified with 2 identifiers: [X] Full Name [X] Date of [ ] VA ID Card Emergency Plan: [place] confirmed and/or provided the following information in case of emergency or technology failure. PATIENT PHONE - PHONE NUMBER [CELLULAR] - NONE FOUND Is patient phone number correct, if not, enter below: 's phone number: LUPILLO HONG [address], [place], [address] [place]'s present location and address for appointment: at home [place]'s emergency contact name and phone number: on file reported that location is private and safe: Yes Informed Consent: informed of the risks and benefits of Telehealth video care. has the right to refuse video services. If refuses video visit, a [id number] visit will be scheduled. verbalized consent for [...] 63yo BLACK OR MALE -=-=-=-=-=-=-=-=-=-=-=-=-=-=- =-=-=-=-=-==-=-=-=-=-=-=-=-=- =-=-=-=-=-=Subjective- was last seen on [id number] with the following pharmacotherapeutic plan: [X] No changes [ ] Discontinue: [ ] Initiate: [ ] Change the following: Treating Dx(s): MDD INTERIM HISTORY noted that pt was having difficulties w/ connecting to [facility] appt; thus, appt was conducted via [...] part of my depression was working in [employer] for 25yrs. reports sleep has improved since last seeing this quality analyst/technical writer. endorses utilizing doxepin 3-4x/wk. agreed to [...] following review of all active psychotropic and PRODUCTION SUPERVISOR-active agents is to ensure pharmacotherapy is evaluated [...] Other: RTC Interval: every 12weeks Next Apt: [id number] [place] was provided quality analyst/technical writer's contact information and instructed to contact quality analyst/technical writer as needed for any changes to scheduling or concerns otherwise. [place] is aware of actions to take if they feel unsafe, including calling the [place]'s Crisis Line (#263); calling 911; or going to the nearest urgent care or emergency room. The is also aware of how to contact the clinic should the require additional services prior to the next appointment. Time spent on chart review, session, and documentation: 30minutes /barbara Meehan PharmD Clinical Pharmacist Practitioner Signed: 01/13/2024 [...] at home, or get along with others. /barbara Meehan PharmD Clinical Pharmacist Practitioner Signed: 01/29/2024 22:37 ASHOK MEEHAN [place] [facility] [place] [facility]
--- OUTSIDE RECORDS SUMMARY | 2024-06-06 08:11 | XMS_ITS ---
Author Name [facility] [place] Address [address] [place] [address] Care Team Providers Care Medical And Health Services Manager Name Role Phone BOY DELONG Primary [...] OPTUM RX PRESCRIPT ION HEALT H NEW [facility] Mar 07, 2020 [facility] [id number] MARGARETH HONG RRYL PATIENT Selected Encounter This section includes the information on record at [place] for the Encounter. Date/Time Encounter Type Encounter Description Reason Provider Source May 28, 2024 10:30 AM OFFICE O/P EST LOW 20 MIN PM&RS PHYSICIAN ICD-10-CM M17.0 Bilateral primary osteoarthritis of knee NNAMDI ERIC E Encounter Template Text not used by [place] Assessments - Encounter Diagnoses This section includes the primary and secondary diagnoses documented for the Encounter. Date/Time Primary/Secondary Diagnosis Diagnosis Name Provider Source May 28, 2024 11:14 AM PRIMARY Bilateral primary osteoarthritis of knee NNAMDI ERIC [place] [facility] [place] [facility] May 28, 2024 11:14 AM SECONDARY Gout, unspecified NNAMDI ERIC [facility] Plan of Treatment: Future Appointments (+ 6 months) and Future Tests (+/- 45 days) The Plan of Treatment section includes future care activities for the patient from all [place] [facility] [place]. This section includes future appointments and future orders which are active, pending or scheduled. Future Appointments This section includes appointments that were scheduled to occur 6 months from the date of the Encounter, up to a maximum of 20 appointments. The data comes from all [facility] facilities. Appointment Date/Time Appointment Type Appointme nt Facility Name July 10, 2024 10:00 AM AMBULATORY - PSYCHIATRY [facility] Vital Signs: All taken on the encounter date This section contains inpatient and outpatient Vital Signs collected on the date of the Encounter. Date/Time Temperature Pulse Blood Pressure Respiratory Rate SP02 Pain Height Weight Body Mass Index Source May 28, 2024 10:33 AM 130/80 5 [facility] Encounter Notes: All associated encounter notes This section contains the clinical notes associated to the Encounter. Date/Time Encounter Note(s) Provider Source May 28, 2024 11:03 AM PHYSICAL MEDICINE REHAB NOTE: LOCAL TITLE: PM&R BACK/JOINT PROCEDURE NOTE STANDARD TITLE: PHYSICAL MEDICINE REHAB NOTE DATE OF NOTE: MAY 28, 2024@11:03 ENTRY DATE: MAY 28, 2024@11:04:02 AUTHOR: SOTERO ERIC EXP COSIGNER: URGENCY: STATUS: COMPLETED PROCEDURE: Right intra-articular knee injection with cortisone. INDICATION: Knee pain. ANESTHESIA: None. INFORMED CONSENT: Obtained verbally, and through IMED. Mr. Hong presents today for reassessment of bilateral knee pain. Both knees are bothering him but the right is significantly worse than that of the left. He has a great deal of discomfort all of the time but stiffness is much more problematic than it had been. He has not noticed any significant swelling as of late. He has been taking the colchicine but has not seen any significant improvement. Pain levels continue to vary between 8 out of 10 and 6 out of 10. He does have an appointment next month with orthopedics for further consideration to joint replacement. He would like to avoid having this done during the summer. He is taking Celebrex as well as the colchicine when he has flares. Exam today demonstrates right knee 120 degrees of flexion with terminal extension. Varus alignment is noted. He has no instability. Tenderness medial joint line as well as in the parapatellar region. Crepitus noted with flexion and extension. No instability. Tightness noted within the hamstrings bilaterally right greater than left. Left knee demonstrates tenderness over the parapatellar region and medial joint line. 130 degrees of flexion with terminal extension. Tenderness in the medial joint line as well as in the lateral joint line. No effusion redness or warmth. The steps of the procedure, potential risks and benefits of the intra-articular knee injection, as well as alternatives were discussed with patient. The potential risks include, but not limited to: local injection reaction, pain, bruising/hematoma, nerve damage, temporary increase in blood sugar (if applicable), adverse side effects to cortisone or lidocaine including rash/itching, infection, and swelling of the knee. Patient agreed to proceed with the injection. TIME OUT NOTE TIME:May@10:45 [place] correctly stated: [X]Full name: GELYLUPILLOJoey REIS [X]Last 4 of #: [id number] [X]: Oct PROVIDER NAME: Sotero Eric PA-c STAFF NAME: Mya Grewal RN Lot #: [id number] Exp: Feb 2025 The procedure was performed with the patient in the seated position. Right knee was cleansed with chlorhexidine x 3. Anteromedial approach selected. 25-gauge 1-1/2 inch needle advanced into the intercondylar notch. After negative aspiration for heme injected with 80 mg triamcinolone, 2 cc of 1% lidocaine and 2 cc bupivacaine. No complications. No blood loss. The patient [...] Pre-procedure pain level: 6/10 Post-procedure pain level: /10 Assessment and plan: 63-year-old presenting with bilateral osteoarthritis tricompartmental. Right greater than left. Encouraged to continue to brace primarily for stability. Injected the right knee today and we can inject the left in 3 weeks. May consider use of diclofenac in place of the Celebrex. [place] sees no significant improvement he may wish to reconsider surgical date understanding that now the right knee has been injected he cannot have surgery within the next 3 months without increased risk for infection. Medication Reconciliation: Outpatient: Has the patient been [...] Remote Allergy/ADR Data available for this patient [place] [facility] [place] [facility] No Known Allergies Med [facility] INCLUDED IN THIS LIST: [...] the patient into personal health records (i.e. Apieron) are NOT included in this list. Non-VA medications documented outside this [place], remote inpatient orders (regardless of status) and remote clinic medications are NOT included in this list. The patient and provider must always discuss medications the patient is taking, regardless of where the medication was dispensed or obtained. OUTPT ALBUTEROL 90MCG (CFC-F) 200D ORAL INHL (Status = Active) INHALE 1 PUFF BY MOUTH ONCE DAILY NEEDED FOR BRONCHOSPASM Rx# [id number] Last Released: 12/30/23 Qty/Days Supply: 04/05 Rx Expiration Date: 06/10/24 Refills Remainin Indication: FOR BRONCHOSPASM OUTPT AMLODIPINE BESYLATE 10MG TAB (Status = Active) TAKE ONE TABLET BY MOUTH ONCE DAILY FOR BLOOD PRESSURE/HEART, DO NOT TAKE WITH GRAPEFRUIT JUICE Rx# [id number] Last Released: 02/13/24 Qty/Days Supply: Rx Expiration Date: 01/06/25 Refills Remainin OUTPT CELECOXIB 200MG CAP (Status = Active) TAKE ONE CAPSULE BY MOUTH TWICE DAILY NEEDED FOR RHEUMATOID ARTHRITIS Rx# [id number] Last Released: 05/04/24 Qty/Days Supply: Rx Expiration Date: 08/09/24 Refills Remainin Indication: FOR RHEUMATOID ARTHRITIS OUTPT CETIRIZINE HCL 10MG TAB (Status = Active) TAKE TWO TABLETS BY MOUTH ONCE DAILY FOR ALLERGIES Rx# [id number] Last Released: 05/22/24 Qty/Days Supply: Rx Expiration Date: 02/03/25 Refills Remainin Indication: FOR ALLERGIES OUTPT COLCHICINE 0.6MG TAB (Status = Active) TAKE 2 TABLETS AT ONSET BY MOUTH ONE TIME AND TAKE 1 TABLET ONE HOUR LATER ONE TIME FOR GOUT [MAY ONLY REPEAT COURSE ONCE EVERY TWO WEEKS][TOTAL OF TWO COURSES IN 30 DAYS][6 TABLETS PER 30 DAYS] Rx# [id number] Last Released: 02/03/24 Qty/Days Supply: 09/03 Rx Expiration Date: 12/27/24 Refills Remainin Indication: TO PREVENT GOUT OUTPT DOXEPIN 3MG TAB (Status = Active) TAKE ONE TABLET BY MOUTH AT BEDTIME NEEDED FOR INSOMNIA Rx# [id number] Last Released: 04/04/24 Qty/Days Supply: Rx Expiration Date: 09/09/24 Refills Remainin Indication: FOR CHRONIC TROUBLE SLEEPING OUTPT HYALURONATE NA (DUROLANE)20MG/ML SYR 3ML (Status = Discontinued) INJECT 60MG INTRA-ARTICULAR ONE TIME OSTEOARTHRITIS OF THE KNEE Rx# [id number] Last Released: 11/09/23 Qty/Days Supply: Rx Expiration Date: 04/01/24 Refills Remainin Indication: OSTEOARTHRITIS OF THE KNEE OUTPT HYALURONATE NA (DUROLANE)20MG/ML SYR 3ML (Status = Active) INJECT 60MG INTRA-ARTICULAR ONE TIME OSTEOARTHRITIS OF THE KNEE Rx# [id number] Last Released: Qt/Days Supply: Rx Expiration Date: 05/12/25 Refills Remainin Indication: OSTEOARTHRITIS OF THE KNEE OUTPT HYDROCHLOROTHIAZIDE 25MG TAB (Status = Active) TAKE ONE-HALF TABLET BY MOUTH ONCE DAILY Rx# [id number] Last Released: 01/10/24 Qty/Days Supply: Rx Expiration Date: 01/06/25 Refills Remainin Indication: FOR HIGH BLOOD PRESSURE OUTPT LOSARTAN 25MG TAB (Status = ) TAKE ONE TABLET BY MOUTH ONCE DAILY FOR BLOOD PRESSURE/HEART Rx# [id number] Last Released: 01/10/24 Qty/Days Supply: Rx Expiration Date: 04/05/24 Refills Remainin Indication: FOR HIGH BLOOD PRESSURE OUTPT MULTIVITAMIN CAP/TAB (Status = Active) TAKE 1 TABLET BY MOUTH ONCE DAILY FOR VITAMIN SUPPLEMENTATION Rx# [id number] Last Released: 11/01/23 Qty/Days Supply: Rx Expiration Date: 10/28/24 Refills Remainin Indication: FOR VITAMIN SUPPLEMENTATION OUTPT SERTRALINE HCL 100MG TAB (Status = Discontinued) TAKE ONE-HALF TABLET BY MOUTH ONCE DAILY FOR MAJOR DEPRESSIVE DISORDER Rx# [id number] Last Released: 04/06/24 Qty/Days Supply: Rx Expiration Date: 10/28/24 Refills Remainin Indication: FOR MAJOR DEPRESSIVE DISORDER OUTPT SERTRALINE HCL 100MG TAB (Status = Active) TAKE ONE TABLET BY MOUTH ONCE DAILY FOR MAJOR DEPRESSIVE DISORDER Rx# [id number] Last Released: 05/22/24 Qty/Days Supply: Rx Expiration Date: 04/11/25 Refills Remainin Indication: FOR MAJOR DEPRESSIVE DISORDER OUTPT SILDENAFIL CITRATE 100MG TAB (Status = Active) TAKE ONE TABLET BY MOUTH DIRECTED TAKE 1 HOUR PRIOR TO SEXUAL ACTIVITY TRY ONE HALF PILL; IF ONE HALF DOES NOT WORK THEN MAY TAKE ONE WHOLE TABLET NEXT TIME; NEVER TAKE MORE THAN ONE TABLET AT ONE TIME Rx# [id number] Last Released: 01/18/24 Qty/Days Supply: 09/03 Rx Expiration Date: 07/25/24 Refills Remainin Indication: FOR ERECTILE DYSFUNCTION SUPPLIES /ivone/ SOTERO ERIC [facility] Signed: 05/28/2024 11:14 SOTERO ERICL [facility]
--- OUTSIDE RECORDS SUMMARY | 2024-06-06 08:11 | XMS_ITS | Encounter Summary ---
Author Name Department of Vetera Affairs [place]) Organization [place] Address [address] [place] [address] Care Team Providers Care Steam Blocker Name Role Phone BOY DELONG Primary Care [...] ENGL [facility] Mar 07, 2020 [facility] [id number] MARGARETH HONG RRYL PATIENT Selected Encounter This section includes the information on record at [place] for the Encounter. Date/Time Encounter Type Encounter Description Reason Provider Source Aug 19, 2023 10:00 AM SELF CARE MNGMENT TRAINING PHYSICAL THERAPY ICD-10-CM M17.0 Bilateral primary osteoarthritis of knee LUISANA CHINO [place] Encounter Template Text not used by [place] Assessments - Encounter Diagnoses This section includes [...] - PSYCHIATRY [facility] [place] [facility] Oct 14, 2023 09:30 AM AMBULATORY - PS[facility]CHIATRY [facility] [place] [facility] Oct 28, 2023 10:00 AM AMBULATORY - PSYCHIATRY [facility] [place] [facility] Nov 11, 2023 11:00 AM AMBULATORY - PSYCHIATRY [facility] [place] [facility] Nov 14, 2023 03:00 PM AMBULATORY - MEDICINE [place] [facility] [place] [facility] Nov 17, 2023 08:00 AM AMBULATORY - MEDICINE [place] [facility] [place] [facility] Jan 06, 2024 10:00 AM AMBULATORY - MEDICINE [facility] Jan 10, 2024 11:15 AM AMBULATORY - NONE [facility] [place] [facility] Jan 10, 2024 11:30 AM AMBULATORY - NONE [facility] [place] [facility] Jan 13, 2024 10:00 AM AMBULATORY - PSYCHIATRY [facility] [place] [facility] Jan 13, 2024 01:00 PM AMBULATORY - MEDICINE [place] [facility] [place] [facility] Feb 03, 2024 03:30 PM AMBULATORY - MEDICINE [facility] Social History: Smoking Status (Most current) and Tobacco Use (All prior to encounter date) This section includes the most current, and the historical, smoking and tobacco- related health factors from the [place] facility where the Encounter took place. Current Smoking Status This section includes the most current smoking, or tobacco-related health factor, from the [place] facility where the Encounter took place. Date/Time Current Smoking Status Comment Matthew dongy Jun 10, 2023 11:30 AM [place]-TOBACCO NEVER USED [place] Tobacco Use History This section includes a history of the smoking, or tobacco-related health factors, that were collected on or before the date of the Encounter. The data comes from the [place] facility where the Encounter took place. Date/Time Smoking Status/Tobacco Use Comment F acility May 14, 2022 11:30 AM VA-TOBACCO NEVER USED [place] Mar 27, 2021 11:00 AM VA-TOBACCO NEVER USED [place] Encounter Notes: All associated encounter notes This [...] [] skin intact pre/post modality Access Code: [email or web address] URL: [email or web address] Date: 08/03/2023 Prepared by: Fletcher Chino Exercises [...] PHYSICAL THERAPIST Signed: 08/19/2023 10:35 FLETCHER CHINO [place]
--- OUTSIDE RECORDS SUMMARY | 2024-06-06 08:11 | XMS_ITS | Encounter Summary ---
Author Name [facility] [place] [facility] [place] Organization [place] Address [address] [place] [id number] Care Team Providers Care Basketball Player Name Role Phone DELONGBOY Primary Care Provider [...] OPTUM RX PRESCRIPT ION HEALT H [facility] Mar 07, 2020 [facility] [id number] MARGARETH HONG RRYL PATIENT Selected Encounter This section includes the information on record at [place] for the Encounter. Date/Time Encounter Type Encounter Description Reason Pro vider Source IHE Encounter Template Text not used by [place]
--- OUTSIDE RECORDS SUMMARY | 2024-06-06 08:11 | XMS_ITS | Encounter Summary ---
Author Name [facility] of Vetera [facility] ([place] Organization [place] Address [address] [place] [address] Care Team Providers Care Teen Counselor Name Role Phone BOY DELONG Primary Care [...] PRESCRIPT ION HEALT H NEW [place] [facility] Mar 07, [address] [facility] [id number] MARGARETH HONG RRYL PATIENT Selected Encounter This section includes the information on record at [place] for the Encounter. Date/Time Encounter Type Encounter Description Reason Provider Source August 03, 2023 08:00 AM SELF CARE MNGMENT TRAINING PHYSICAL THERAPY ICD-10-CM M17.0 Bilateral primary osteoarthritis of knee LUISANA CHINO IHRosibel Encounter Template Text not used by [place] [...] AMBULATORY - PSYCHIATRY [facility] [place] [facility] August 05, 2023 03:00 PM AMBULATORY - PSYCHIATRY [facility] [place] [facility] Aug 11, 2023 10:40 AM AMBULATORY - MEDICINE [facility] [place] [facility] Aug 19, 2023 10:00 AM AMBULATORY - REHAB [facility] Sep 09, 2023 09:30 AM AMBULATORY - PSYCHIATRY [facility] [place] [facility] Oct 14, 2023 09:30 AM AMBULATORY - PSYCHIATRY [facility] [place] [facility] Oct 28, 2023 10:00 AM AMBULATORY - PSYCHIATRY [facility] [place] [facility] Nov 11, 2023 11:00 AM AMBULATORY - PSYCHIATRY [facility] [place] [facility] Nov 14, 2023 03:00 PM AMBULATORY - MEDICINE [place] [facility] [facility] Nov 17, 2023 08:00 AM AMBULATORY - MEDICINE [place] [facility] [place] [facility] Jan 06, 2024 10:00 AM AMBULATORY - MEDICINE [facility] Jan 10, 2024 11:15 AM AMBULATORY - NONE [facility] [place] [facility] Jan 10, 2024 11:30 AM AMBULATORY - NONE [facility] [place] [facility] Jan 13, 2024 10:00 AM AMBULATORY - PSYCHIATRY [facility] [place] [facility] Jan 13, 2024 01:00 PM AMBULATORY - MEDICINE [place] [facility] [facility] Feb 03, 2024 03:30 PM AMBULATORY - MEDICINE [facility] Social History: Smoking Status (Most current) [...] 10, 2023 11:30 AM [place]-TOBACCO NEVER USED [place] Tobacco Use History This section includes a history of the smoking, or tobacco-related health factors, that were collected on or before the date of the Encounter. The data comes from the [place] facility where the Encounter took place. 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
--- OUTSIDE RECORDS SUMMARY | 2024-06-06 08:11 | XMS_ITS ---
Author Name [facility] [place] [facility] [place] [facility] [place] Address [address] [place] [address] Care Team Providers Care Gut Dropper Name Role Phone BOY DELONG Primary Care [...] HEALT H [facility] Mar 07, 2020 [facility] [id number] MARGARETH HONG RRYL PATIENT Selected Encounter This section includes the information on record at [place] for the Encounter. Date/Time Encounter Type Encounter Description Reason Provider Source Jun 24, 2023 11:30 AM OFFICE O/P EST LOW 20 MIN PM&RS PHYSICIAN ICD-10-CM M25.859 Other specified joint disorders, unspecified hip REESE MCFADDEN E Encounter Template Text not used by [place] Assessments - Encounter Diagnoses This section includes the primary and secondary diagnoses documented for the Encounter. Date/Time Primary/Secondary Diagnosis Diagnosis Name Provider Source Jun 25, 2023 09:58 AM PRIMARY Other specified joint disorders, unspecified hip NNAMDI MCFADDEN [facility] Jun 25, 2023 09:58 AM SECONDARY Bilateral primary osteoarthritis of knee NNAMDI MCFADDEN [place] [facility] [place] [facility] Jun 25, 2023 09:58 AM SECONDARY Pain in left knee NNAMDI MCFADDEN [place] [facility] [place] [facility] Jun 25, 2023 09:58 AM SECONDARY Pain in right knee NNAMDI MCFADDEN [place] [facility] [place] [facility] Plan of Treatment: Future Appointments (+ 6 months) and Future Tests (+/- 45 days) The Plan of Treatment section includes future care activities for the patient [facility] [place] [facility]. This section includes future appointments [...] 22, 2023 01:00 PM AMBULATORY - PSYCHIATRY [facility] August 03, 2023 08:00 AM AMBULATORY - REHAB [facility] August 05, 2023 09:00 AM AMBULATORY [place]AT[place] [facility] [place] [facility] August 05, 2023 03:00 PM AMBULATORY - [place]IAT[place] [facility] [place] [facility] Aug 11, 2023 10:40 AM AMBULATORY - MEDICINE [place] [facility] [place] [facility] Aug 19, 2023 10:00 AM AMBULATORY - REHAB [facility] Sep 09, 2023 09:30 AM AMBULATORY - [place]AT[place] [facility] [place] [facility] Oct 14, 2023 09:30 AM AMBULATORY [place]AT[place] [facility] [place] [facility] Oct 28, 2023 10:00 AM AMBULATORY - [place]ATRY [place] [facility] [place] [facility] Nov 11, 2023 11:00 AM AMBULATORY - PS[place]IATRY [place] [facility] [place] [facility] Nov 14, 2023 03:00 PM AMBULATORY - MEDICINE [place] [facility] [place] [facility] Nov 17, 2023 08:00 AM AMBULATORY - MEDICINE [place] [facility] [place] [facility] Lab Results: +/- 30 days of the encounter This section includes the Chemistry and Hematology Lab Results on record with [place] for the patient. Radiology Reports and Pathology Reports are provided separately, in subsequent sections. Lab Results This section contains the Chemistry/Hematology Results that were resulted 30 days before or 30 daysafter the date of the Encounter. Date/Time Source Result Type Result - Unit Interpretation Reference Range Comment Jun 09, 2023 08:32 AM [place] VITAMIN D (25-OH) Specimen Type: SERUM No comment entered. Ordering Provider: BOY DELONG Report Released Date/Time: Dec 14, 2022 10:56 AM Reporting Lab: [address] [address] Performing Lab: [address] [address] VITAMIN D (25-OH) 21 ng/mL 20-50 Jun 09, 2023 08:32 AM [place] URINALYSIS Specimen Type: URINE Comment: If Glucose = >500 and Ketones are positive, please alert the Physician. Ordering Provider: BOY DELONG Report Released Date/Time: Dec 14, 2022 10:56 AM Reporting Lab: [address] [address] Performing Lab: [address] [address] UA COLOR Light-Yellow Yellow UA APPEARANCE Clear Clear UA GLUCOSE NEGATIVE mg/dL Negative UA KETONES NEGATIVE mg/dL Negative UA BLOOD NEGATIVE mg/dL Negative UA PROTEIN NEGATIVE mg/dL Negative UA NITRITE NEGATIVE mg/dL Negative UA BILIRUBIN NEGATIVE mg/dL Negative UA SPECIFIC GRAVITY 1.015 L 1.016-1.02 2 UA pH 5.5 5.0-9.0 UA UROBILINOGEN <2.0 mg/dL <2.0 UA LEUKOCYTE NEGATIVE Negative Jun 09, 2023 08:32 AM [place] VITAMIN B12 Specimen Type: SERUM No comment entered. Ordering Provider: BOY DELONG Report Released Date/Time: Dec 14, 2022 10:56 AM Reporting Lab: [address] [address] Performing Lab: [address] [address] VITAMIN B12 580 pg/mL 200-900 Jun 09, 2023 08:32 AM [place] FERRITIN Specimen Type: SERUM No comment entered. Ordering Provider: BOY DELONG Report Released Date/Time: Dec 14, 2022 10:56 AM Reporting Lab: [facility] [address] [facility] [address] Performing Lab: [address] [address] FERRITIN 199 ng/mL 20-300 Jun 09, 2023 08:32 AM [place] CBC AND DIFF (AUTO) Specimen Type: BLOOD No comment entered. Ordering Provider: BOY DELONG Report Released Date/Time: Dec 14, 2022 10:56 AM Reporting Lab: [facility] [address] [address] Performing Lab: [address] [address] WBC 4.38 10*3/uL L 4.50-11.00 RBC 5.42 10*6/uL 4.23-5.66 HGB 15.0 g/dL 12.8-17 HCT 44.9 39.2-50.4 MCV 82.8 fL 82-99 MCHC 33.4 g/dL 30.8-35.1 PLT 265 10*3/uL 140-360 RDW-CV 12.8 12.0-16.0 [place], Abs 0.37 10*3/uL 0.30-1.10 MCH 27.7 pg 26.2-32.6 Neut % 56.0 43.7-75.8 Lymph % 31.7 14.0-42.3 [place] % 8.4 5.1-13.7 Eos % 3.0 0.4-6.8 Baso % 0.7 0.1-2.0 Neut, Abs 2.45 10*3/uL 2.20-7.60 Lymph, Abs 1.39 10*3/uL 1.00-3.20 Eos, Abs 0.13 10*3/uL 0.03-0.44 Baso, Abs 0.03 10*3/uL 0.01-0.13 Immature Gran % 0.2 0.0-0.7 Immature Gran, Abs 0.01 10*3/uL 0.00-0.06 Jun 09, 2023 08:32 AM [place] RETICULOCYTES Specimen Type: BLOOD No comment entered. Ordering Provider: BOY DELONG Report Released Date/Time: Dec 14, 2022 10:56 AM Reporting Lab: [facility] [address] [facility] [address] Performing Lab: [facility] [address] [address] RETIC % 1.1 0.6-2.0 RETIC, ABS 61.8 10*3/uL 30.0-90.0 Ret-He % 31.3 27.9-42.0 Jun 09, 2023 08:32 AM [place] HEMOGLOBIN A1C PANEL Specimen Type: BLOOD Comment: [...] 14, 2022 10:56 AM Reporting Lab: [facility] [address] [facility] [address] Performing Lab: [facility] [address] [address] HEMOGLOBIN A1C 5.8 H 4.0-5.6 Jun 09, 2023 08:32 AM [place] TSH Specimen Type: SERUM No comment entered. Ordering Provider: BOY DELONG Report Released Date/Time: Dec 14, 2022 10:56 AM Reporting Lab: [facility]USE[address] [address] Performing Lab: [facility] [address] [address] TSH 2.27 u[IU]/mL 0.35-5.00 Jun 09, 2023 08:32 AM [place] PSA Specimen Type: SERUM No comment entered. Ordering Provider: BOY DELONG Report Released Date/Time: Dec 14, 2022 10:56 AM Reporting Lab: [facility] [address] [address] Performing Lab: [facility] [address] [address] PSA 2.13 ng/mL 0.00-4.00 Jun 09, 2023 08:32 AM [place] LIVER FUNCTION Specimen Type: SERUM No comment entered. Ordering Provider: BOY DELONG Report Released Date/Time: Dec 14, 2022 10:56 AM Reporting Lab: [facility] [address] [facility] [address] Performing Lab: [address] [address] PROTEIN,TOTAL 6.9 g/dL 6.0-8.3 ALBUMIN 4.0 g/dL 3.5-5.0 ALKALINE PHOSPHATASE 66 U/L 40-150 AST 19 U/L 5-34 ALT 27 U/L BILIRUBIN, TOTAL 0.5 mg/dL 0.2-1.2 Jun 09, 2023 08:32 AM [place] LIPID PANEL FASTING Specimen Type: SERUM No comment entered. Ordering Provider: BOY EDLONG Report Released Date/Time: Dec 14, 2022 10:56 AM Reporting Lab: [address] [address] Performing Lab: [address] [address] CHOLESTEROL 173 mg/dL TRIGLYCERIDE 81 mg/dL 0-150 LDL calculated 118 mg/dL 0-129 CHOL/HDL 4.4 HDL CHOLESTEROL 39 mg/dL L 40-60 Jun 09, 2023 08:32 AM [place] BASIC METABOLIC PANEL (fasting) Specime n Type: SERUM No comment entered. Ordering Provider: BOY DELONG Report Released Date/Time: Dec 14, 2022 10:56 AM Reporting Lab: [address] [address] Performing Lab: [address] [address] UREA NITROGEN 15 mg/dL 7-25 GLUCOSE 113 mg/dL H 65-100 SODIUM 141 mmol/L 135-145 POTASSIUM 3.9 mmol/L 3.5-5.0 CHLORIDE 108 mmol/L 100-110 CO2 24 meq/L 20-30 CREATININE, Serum 1.17 mg/dL 0.50-1.40 eGFR(CKD-EPI 2020) 71 mL/min >60 Jun 09, 2023 08:32 AM [place] URIC ACID Specimen Type: SERUM No comment entered. Ordering Provider: BOY DELONG Report Released Date/Time: Dec 14, 2022 10:56 AM Reporting Lab: [address] [address] Performing Lab: [address] [address] URIC ACID 5.6 mg/dL 3.5-7.2 Jun 09, 2023 08:32 AM [place] CALCIUM Specimen Type: SERUM No comment entered. Ordering Provider: BOY DELONG Report Released Date/Time: Dec 14, 2022 10:56 AM Reporting Lab: [address] [address] Performing Lab: [address] [address] CALCIUM 8.8 mg/dL 8.5-10.2 Radiology Reports: +/- [...] the Encounter. The data comes from all [facility] facilities. Date/Time Radiology Report Provider Source Jun 24, 2023 10:59 AM ABDOMINAL ULTRASOUND: LUPILLO HONG [id number] -[id number] M Exm Date: JUN 24, 2023@10:59 Req Phys: BOY DELONG Pat Loc: CWM/SO/PACT 3 WH (Req'g Loc) Img Loc: ULTRASOUND Service: Unknown (Case [id number] COMPLETE) [employer] (US Detailed) CPT:73724 Reason for Study: umbilical hernia Clinical History: need views before seeing karen trujillo Report Status: Verified Date Reported: JUN 25, 2023 Date Verified: JUN 25, 2023 Furnace Fitter E-Sig: Report: [employer] [PRINTSET] Clinical History: Umbilical hernia. [...] containing hernia. READING PHYSICIAN: Mikhail Andrews MD -[id number] 06/24/2023 23:15 PDT [facility] National Teleradiology Program [phone] (For Medical Practitioner Use Only) Attention Patients / Veterans: If you have questions or concerns about these test results, please contact your ordering provider or primary care team. Primary Diagnostic Code: NO ALERT REQUIRED Primary Interpreting Staff: RADIOLOGY,OUTSIDE SERVICE, Staff Physician / RADIOLOGY,OUTSIDE SERVICE [facility] Encounter Notes: All associated encounter notes This section contains the clinical notes associated to the Encounter. Date/Time Encounter Note(s) Provider Source Jun 24, 2023 02:18 PM PHYSICAL MEDICINE REHAB PHYSICIAN NOTE: LOCAL TITLE: PM&R FOLLOW-UP STANDARD TITLE: PHYSICAL MEDICINE REHAB PHYSICIAN NOTE DATE OF NOTE: JUN 24, 2023@14:18 ENTRY DATE: JUN 24, 2023@14:18:30 AUTHOR: JAM MCFADDEN COSIGNER: URGENCY: STATUS: COMPLETED [employer] (VVC) Standard Documentation [facility] Clinician Resources Only: E911 (Emergency Call Relay Center): [phone] National Veterans Crisis Line - 988 then press #1. CW Suicide Coordinator [phone], Ext. [phone]; Back-up Ext. [phone] EDWARD Hoffman, Valente VILLARREAL [phone] Introduction: Visit is being conducted by [employer]. identified with 2 identifiers: [X] Full Name [X] Date of [ ] VA ID Card Emergency Plan: Bannister confirmed and/or provided the following information in case of emergency or technology failure. PATIENT PHONE - PHONE NUMBER [CELLULAR] - NONE FOUND Is patient phone number correct, if not, enter below: Bannister's phone number: LUPILLO HONG [address], [place], [address] Bannister's present location and address for appointment: At [place] 's emergency contact name and phone number: on file reported that location is private and safe: Yes Informed Consent: informed of the risks and benefits of Telehealth video care. Bannister has the right to refuse video services. If refuses video visit, a [id number]-[id number] visit will be scheduled. verbalized consent for this video visit: Yes Bannister provided consent for any other persons present for visit: N/A If yes, who and relationship to patient: Secure visit: Visit was locked for security and privacy:Yes Bannister seen today for video communication. Reevaluation of [...] discussed treatment options including use of off spray machine loader braces. He has bilateral medial compartment arthritis by x-ray which is fairly severe. He does use his neoprene brace which he finds to be helpful. Assessment and plan: Bilateral osteoarthritis of the knees. Will refer to physical therapy for strengthening of muscles around the pelvis as well as anterior tibialis. Optimize function about the ankles. Off spray machine loader braces to be provided by physical therapy. Bannister does not wish to consider surgical intervention [...] of active outpatient prescriptions dispensed from this [place] (local) and dispensed from another VA or [...] Remote Allergy/ADR Data available for this patient [place] [facility] [place] [facility] No Known Allergies [...] the patient into personal health records (i.e. [employer]) are NOT included in this list. Non-VA medications documented outside this [place], remote inpatient orders (regardless of status) and remote clinic medications are NOT included in this list. The patient and provider must always discuss medications the patient is taking, regardless of where the medication was dispensed or obtained. OUTPT ALBUTEROL 90MCG (CFC-F) 200D ORAL INHL (Status = Active) INHALE 1 PUFF BY MOUTH ONCE DAILY NEEDED FOR BRONCHOSPASM Rx# [id number] Last Released: 06/10/23 Qty/Days Supply: 04/05 Rx Expiration Date: 06/10/24 Refills Remainin Indication: FOR BRONCHOSPASM OUTPT AMLODIPINE BESYLATE 10MG TAB (Status = Discontinued) TAKE ONE TABLET BY MOUTH ONCE DAILY FOR BLOOD PRESSURE/HEART, DO NOT TAKE WITH GR[employer] JUICE Rx# [id number] Last Released: 12/14/22 Qty/Days Supply: Rx Expiration Date: 12/15/23 Refills Remainin OUTPT AMLODIPINE BESYLATE 10MG TAB (Status = Active) TAKE ONE TABLET BY MOUTH ONCE DAILY FOR BLOOD PRESSURE/HEART, DO NOT TAKE WITH GRAPEFRUIT JUICE Rx# [id number] Last Released: 04/04/23 Qty/Days Supply: Rx Expiration Date: 04/04/24 Refills Remainin OUTPT DICLOFENAC NA 1% TOP GEL (Status = ) APPLY 4 GRAMS TOPICALLY FOUR TIMES A DAY FOR OSTEOARTHRITIS - USE DOSING CARD PROVIDED IN BOX Rx# [id number] Last Released: 10/13/22 Qty/Days Supply: Rx Expiration Date: 05/15/23 Refills Remainin Indication: FOR JOINT PAIN OUTPT HYALURONATE NA (DUROLANE)20MG/ML SYR 3ML (Status = Active) INJECT 60MG INTRA-ARTICULAR ONE TIME OSTEOARTHRITIS OF THE KNEE Rx# [id number] Last Released: 05/04/23 Qty/Days Supply: Rx Expiration Date: 04/01/24 Refills Remainin Indication: OSTEOARTHRITIS OF THE KNEE OUTPT HYDROCHLOROTHIAZIDE 25MG TAB (Status = Discontinued) TAKE ONE-HALF TABLET BY MOUTH ONCE DAILY Rx# [id number] Last Released: 12/14/22 Qty/Days Supply: Rx Expiration Date: 12/15/23 Refills Remainin Indication: FOR HIGH BLOOD PRESSURE OUTPT HYDROCHLOROTHIAZIDE 25MG TAB (Status = Active) TAKE ONE-HALF TABLET BY MOUTH ONCE DAILY Rx# [id number] Last Released: 04/04/23 Qty/Days Supply: Rx Expiration Date: 04/04/24 Refills Remainin Indication: FOR HIGH BLOOD PRESSURE OUTPT LORATADINE 10MG TAB (Status = Active) TAKE ONE TABLET BY MOUTH ONCE DAILY FOR ALLERGY Rx# [id number] Last Released: 06/10/23 Qty/Days Supply: Rx Expiration Date: 06/10/24 Refills Remainin Indication: FOR ALLERGY OUTPT LOSARTAN 25MG TAB (Status = Discontinued) TAKE ONE TABLET BY MOUTH ONCE DAILY FOR BLOOD PRESSURE/HEART Rx# [id number] Last Released: 05/12/23 Qty/Days Supply: Rx Expiration Date: 04/04/24 Refills Remainin Indication: FOR HIGH BLOOD PRESSURE OUTPT LOSARTAN 25MG TAB (Status = Discontinued) TAKE ONE TABLET BY MOUTH ONCE DAILY FOR BLOOD PRESSURE/HEART Rx# [id number] Last Released: 05/31/23 Qty/Days Supply: Rx Expiration Date: 08/22/23 Refills Remainin Indication: FOR HIGH BLOOD PRESSURE OUTPT LOSARTAN 25MG TAB (Status = Active/Suspended) TAKE ONE TABLET BY MOUTH ONCE DAILY FOR BLOOD PRESSURE/HEART Rx# [id number] Last Released: QtDays Supply: Rx Expiration Date: 09/08/23 Refills Remainin Indication: FOR HIGH BLOOD PRESSURE SUPPLIES PHARMACY TERMS AND POSSIBLE PATIENT ACTIONS INPT = [place] inpatient order IV = [place] intravenous medication OUTPT = [place] outpatient prescription PHARMACY POSSIBLE PATIENT TERMS EXPLANATION ACTIONS -------- --- ACTIVE A prescription that can be If you have refills, filled at the local [place] pharmacy. you may request a refill of this prescription from your [facility] pharmacy. CLINIC A medication you received during If you have questions a visit to a [place] clinic or about this medication emergency department. contact your [place] healthcare team. DISCONTINUED A prescription your provider has Contact your [place] stopped. It is no longer healthcare team if you available to be sent to you or need more of this picked up at the [place] pharmacy medication. window. A prescription which is [...] the VA. Or, it may be an wrxn-dtn-eirihgp (OTC), herbal, dietary supplements or sample medication. [...] An active prescription that is Contact your [place] not scheduled to be filled yet. pharmacy if you need You should receive it before this medication now. you run out. ======== /es/ JAM MCFADDEN [facility] Signed: 06/24/2023 14:37 JAM MCFADDEN [place] [facility]
--- OUTSIDE RECORDS SUMMARY | 2024-06-06 08:11 | XMS_ITS | Encounter Summary ---
Author Name [facility] [place] [facility] [place] [facility] [place] Address [address] [place] [id number] Care Team Providers Care Air Traffic Control Specialist Name Role Phone BOY DELONG Primary [...] RX PRESCRIPT ION HEALT H NEW ENGL [facility] Mar 07, 2020 [facility] [id number] MARGARETH HONG RRYL PATIENT Selected Encounter This section includes the information on record at [place] for the Encounter. Date/Time Encounter Type Encounter Description Reason Provider Source Jan 06, 2024 10:00 AM OFFICE O/P EST MOD 30 MIN PRIMARY CARE/MEDICINE ICD-10-CM R73.9 Hyperglycemia, unspecified BOY DELONG Encounter Template Text not used by [place] Assessments - Encounter Diagnoses This section includes the primary and secondary diagnoses documented for the Encounter. Date/Time Primary/Secondary Diagnosis Diagnosis Name Provider Source Jan 06, 2024 10:39 AM PRIMARY Hyperglycemia, unspecified BOY DELONG [facility] Jan 06, 2024 10:39 AM SECONDARY Encounter for immunization MARGARET WOO [facility] Jan 06, 2024 10:39 AM SECONDARY Essential (primary) hypertension BOY DELONG [facility] Jan 06, 2024 10:39 AM SECONDARY Pain in left knee BOY DELONG Jan 06, 2024 10:39 AM SECONDARY Pain in right knee BOY DELONG Plan of Treatment: Future Appointments (+ 6 months) and Future Tests (+/- 45 days) The Plan of Treatment section includes future care activities for the patient from [facility] [place] [facility]. This section includes future appointments [...] AMBULATORY - NONE [facility] [facility] Jan 10, 2024 11:30 AM AMBULATORY - NONE [facility] [place] [facility] Jan 13, 2024 10:00 AM AMBULATORY - PSYCHIATRY [facility] [place] [facility] Jan 13, 2024 01:00 PM AMBULATORY - MEDICINE [facility] [place] [facility] Feb 03, 2024 03:30 PM AMBULATORY - MEDICINE [facility] Mar 01, 2024 11:00 AM AMBUL[place]ORY [place]ICINE [place] [facility] [place] [facility] Apr 06, 2024 10:00 AM AMBULATORY - PSYCHIATRY [facility] [place] [facility] Apr 10, 2024 09:00 AM AMBULATORY - PSYCHIATRY [facility] [place] [facility] May 15, 2024 09:00 AM AMBULATORY - PS[facility]CHIATRY [facility] [place] [facility] May 15, 2024 10:30 AM AM[place]UL[place]ORY [place]ICINE [place] [facility] [place] [facility] May 28, 2024 10:30 AM AM[place]ORY [place]ICINE [place] [facility] [place] [facility] Active, Pending, and Scheduled Orders This section includes a listing of several types of active, pending, and scheduled orders, including clinic medications orders, diagnostic test orders, procedure orders and consult orders; where the start date of the order is 45 days before the date of the Encounter or 45 days after the date of theEncounter. The data comes from all [place] treatment [facility]. Test Date/Time Test Type Test Details Facility Name Jan 13, 2024 01:37 PM Consult Order [facility] Cons Client Sales And Service Officer's Choice [facility] Lab Results: +/- 30 days of [...] Range Comment Jan 06, 2024 10:11 AM [facility] MICROALBUMIN CREATININE RATIO PANEL Spe cimen Type: URINE No comment entered. Ordering Provider: BOY DELONG Report Released Date/Time: Nov 23, 2023 08:33 AM Reporting Lab: [address] [address] Performing Lab: [address] [address] MICROALBUMIN/C REATININE RATIO 13.8 mg/g 0-29.9 MICROALBUMIN,Q UANTITATIVE 2.5 mg/dL RR UNAVAIL CREATININE URINE 180.82 mg/dL Jan 06, 2024 10:11 AM [facility] URINALYSIS Specimen Type: URINE Comment: If Glucose = >500 and Ketones are positive, please alert the Physician. Ordering Provider: BOY DELONG Report Released Date/Time: Nov 23, 2023 08:33 AM Reporting Lab: [address] [address] Performing Lab: [address] [address] UA COLOR Light-Yellow Yellow UA APPEARANCE Clear Clear UA GLUCOSE Normal mg/dL Negative UA KETONES NEGATIVE mg/dL Negative UA BLOOD NEGATIVE mg/dL Negative UA PROTEIN 10 mg/dL Negative UA NITRITE NEGATIVE mg/dL Negative UA BILIRUBIN NEGATIVE mg/dL Negative UA SPECIFIC GRAVITY 1.024 H 1.016-1.022 UA pH 5.5 5.0-9.0 UA UROBILINOGEN Normal mg/dL <2.0 UA LEUKOCYTE NEGATIVE Negative Jan 06, 2024 09:55 AM [facility] URIC ACID Specimen Type: SERUM No comment entered. Ordering Provider: BOY DELONG Report Released Date/Time: Nov 23, 2023 08:33 AM Reporting Lab: [facility] [address] [address] Performing [facility]: [facility] [address] [address] URIC ACID 5.7 mg/dL 3.5-7.2 Jan 06, 2024 09:55 AM [facility] BASIC METABOLIC PANEL (fasting) Specime n Type: SERUM No comment entered. Ordering Provider: BOY DELONG Report Released Date/Time: Nov 23, 2023 08:33 AM Reporting Lab: [facility] [address] [address] Performing Lab: [address] [address] UREA NITROGEN 18 mg/dL 7-25 GLUCOSE 108 mg/dL H 65-100 SODIUM 140 mmol/L 135-145 POTASSIUM 3.9 mmol/L 3.5-5.0 CHLORIDE 111 mmol/L H 100-110 CO2 21 meq/L 20-30 CREATININE, Serum 1.13 mg/dL 0.50-1.40 eGFR(CKD-EPI 2020) 74 mL/min >60 Jan 06, 2024 09:55 AM [facility] CALCIUM Specimen Type: SERUM No comment entered. Ordering Provider: BOY DELONG Report Released Date/Time: Nov 23, 2023 08:33 AM Reporting Lab: [facility] [address] [address] Performing Lab: [address] [address] CALCIUM 9.0 mg/dL 8.5-10.2 Jan 06, 2024 09:55 AM [facility] LIPID PANEL FASTING Specimen Type: SERUM No comment entered. Ordering Provider: BOY DELONG Report Released Date/Time: Nov 23, 2023 08:33 AM Reporting Lab: [facility] [address] [address] Performing Lab: [address] [address] CHOLESTEROL 168 mg/dL TRIGLYCERIDE 70 mg/dL 0-150 LDL calculated 115 mg/dL 0-129 CHOL/HDL 4.3 HDL CHOLESTEROL 39 mg/dL L 40-60 Jan 06, 2024 09:55 AM [facility] LIVER FUNCTION Specimen Type: SERUM No comment entered. Ordering Provider: BOY DELONG Report Released Date/Time: Nov 23, 2023 08:33 AM Reporting Lab: [facility] [address] [address] Performing Lab: [facility] [address] [address] PROTEIN,TOTAL 6.8 g/dL 6.0-8.3 ALBUMIN 3.9 g/dL 3.5-5.0 ALKALINE PHOSPHATASE 66 U/L 40-150 AST 21 U/L 5-34 ALT 34 U/L BILIRUBIN, TOTAL 0.4 mg/dL 0.2-1.2 Jan 06, 2024 09:55 AM [facility] VITAMIN D (25-OH) Specimen Type: SERUM No comment entered. Ordering Provider: BOY DELONG Report Released Date/Time: Nov 23, 2023 08:33 AM Reporting Lab: [facility] [address] [address] Performing Lab: [facility] [address] [address] VITAMIN D (25-OH) 23 ng/mL 20-50 Jan 06, 2024 09:55 AM [facility] FERRITIN Specimen Type: SERUM No comment entered. Ordering Provider: BOY DELONG Report Released Date/Time: Nov 23, 2023 08:33 AM Reporting Lab: [facility] [address] [address] Performing Lab: [facility] [address] [address] FERRITIN 214 ng/mL 20-300 Jan 06, 2024 09:55 AM [facility] VITAMIN B12 Specimen Type: SERUM No comment entered. Ordering Provider: BOY DELONG Report Released Date/Time: Nov 23, 2023 08:33 AM Reporting Lab: [facility] [address] [address] Performing Lab: [facility] [address] VITAMIN B12 636 pg/mL 200-900 Jan 06, 2024 09:55 AM [facility] PSA Specimen Type: SERUM No comment entered. Ordering Provider: BOY DELONG Report Released Date/Time: Nov 23, 2023 08:33 AM Reporting Lab: [facility] [address] [address] Performing Lab: [address] [address] PSA 1.09 ng/mL 0.00-4.00 Jan 06, 2024 09:55 AM [facility] CBC AND DIFF (AUTO) Specimen Type: BLOOD No comment entered. Ordering Provider: BOY DELONG Report Released Date/Time: Nov 23, 2023 08:33 AM Reporting Lab: [address] [address] Performing Lab: [address] [address] WBC 3.76 10*3/uL L 4.50-11.00 RBC 5.35 [...] 10*3/uL 0.00-0.00 Jan 06, 2024 09:55 AM [facility] HEMOGLOBIN A1C PANEL Specimen Type: BLOOD Comment: [...] Nov 23, 2023 08:33 AM Reporting Lab: [address] [address] Performing Lab: [address] [address] HEMOGLOBIN A1C 5.5 4.0-5.6 Jan 06, 2024 09:55 AM [facility] TSH Specimen Type: SERUM No comment entered. Ordering Provider: BOY DELONG Report Released Date/Time: Nov 23, 2023 08:33 AM Reporting Lab: [address] [address] Performing Lab: [address] [address] TSH 3.01 u[IU]/mL 0.35-5.00 Vital Signs: All taken on the encounter date This section contains inpatient and outpatient Vital Signs collected on the date of the Encounter. Date/Time Temperature Pulse Blood Pressure Respiratory Rate SP02 Pain Height Weight Body Mass Index Source Jan 06, 2024 10:15 AM 97 76 101/80 18 95 244 33 [facility] IELD Immunizations: All administered on the encounter date This section contains immunizations associated to the Encounter. Immunization Series Date Issued Reaction Comments INFLUENZA, HIGH-DOSE, TRIVALENT, PF Jan 05 Social History: Smoking Status (Most current) and Tobacco Use (All prior to encounter date) This section includes the most current, and the historical, smoking and tobacco- related health factors from the [place] facility where the Encounter took place. Current Smoking Status This section includes the most current smoking, or tobacco-related health factor, from the [place] facility where the Encounter took place. Date/Time Current Smoking Status Comment Matthew blankenship Jun 10, 2023 11:30 AM [facility]-TO[facility]ACCO NEVER USED [facility] Tobacco Use History This section includes a history of the smoking, or tobacco-related health factors, that were collected on or before the date of the Encounter. The data comes from the [place] facility where the Encounter took place. Date/Time Smoking Status/Tobacco Use Comment F acility May 14, 2022 11:30 AM [facility]-TOBACCO NEVER USED [facility] Mar 27, 2021 11:00 AM [place]CO [place] US[place] [facility] Radiology Reports: +/- 30 days of the [...] the Encounter. The data comes from all [place] treatment facilities. Date/Time Radiology Report Provider Source Jan 10, 2024 11:27 AM KNEE 3 VIEWS (LEFT): JORDAN HONGL SMILEY [id number] -1960 M Exm Date: JAN 10, 2024@11:27 Req Phys: BOY DELONG Loc: CWM/SO/PACT 3 WH (Req'g Loc) Img Loc: [facility] 1 Service: [place] [address] (Case [id number] COMPLETE) KNEE 3 VIEWS (LEFT) (RAD Detailed) CPT:53440 Reason for Study: left knee pain Clinical History: any OA or joint erosions? did have gout L knee Report Status: Verified Date Reported: JAN 10, 2024 Date Verified: JAN 10, 2024 Plastics Fabricator Or Welder E-Sig: Report: KNEE 3 VIEWS (LEFT) COMPARISON: [...] the right knee demonstrates severe medial and dqox-np-jgegenxs lateral tibiofemoral compartment joint degeneration, similar to [...] to prior. READING PHYSICIAN: Karon Blount M.D. -[phone] 01/10/2024 11:58 EST [facility] [phone] (For Medical Practitioner Use Only) Attention Patients / Veterans: If you have questions or concerns about these test results, please contact your ordering provider or primary care team. Primary Diagnostic Code: NO ALERT REQUIRED Primary Interpreting Staff: RADIOLOGY,OUTSIDE SERVICE, Staff Physician / RADIOLOGY,OUTSIDE SERVICE [facility] Jan 10, 2024 11:[address] MAXILLOFACIAL W/O CONT: LUPILLO HONG [id number] -1960 M Exm Date: JAN 10, 2024@11:15 Req Phys: BOY DELONG Loc: CWM/SO/PACT 3 WH (Req'g Loc) Img Loc: [facility]/CT Service: [place] [address] (Case [id number] COMPLETE) CT MAXILLOFACIAL W/O CONT (CT Detailed) CPT:08205 Reason for Study: post nasal drip Clinical History: always cleasring thraot Report Status: Verified Date Reported: JAN 10, 2024 Date Verified: JAN 10, 2024 Plastics Fabricator Or Welder E-Sig: Report: MAXILLOFACIAL CT WITHOUT IV CONTRAST/CT OF THE PARANASAL SINUSES WITHOUT IV CONTRAST: INDICATION: Post nasal drip. Patient reportedly always clearing throat. TECHNIQUE: Volumetric CT acquisition through the maxillofacial structures/paranasal sinuses, with axial, coronal and sagittal reformats, was performed at the local [place] facility. 159 images were received by the [place] [facility] ([facility]) for interpretation. RADIATION DOSE (mGy*cm): [...] commentary as above. READING PHYSICIAN: Boy Sun -[phone] 01/10/2024 16:06 EST [facility] National [facility] Program [phone] (For Medical Practitioner Use Only) Attention Patients / Veterans: If you have questions or concerns about these test results, please contact your ordering provider or primary care team. Primary Diagnostic Code: NO ALERT REQUIRED Primary Interpreting Staff: RADIOLOGY,OUTSIDE SERVICE, Staff Physician / RADIOLOGY,OUTSIDE SERVICE [facility] Jan 10, 2024 11:[address] THORAX W/O CONT: LUPILLO HONG [id number] -1960 M Exm Date: JAN 10, 2024@11:15 Req Phys: BOY DELONG Loc: CWM/SO/PACT 3 WH (Req'g Loc) Img Loc: [facility]/CT Service: Unknown [place] [address] (Case [id number] COMPLETE) CT THORAX W/O CONT (CT Detailed) CPT:34844 Reason for Study: chest tightness Clinical History: post nasal drip coughing echo and ekg of heart neg for cardiac pathology back in may 2023 any signs interstitial lung disease? Report Status: Verified Date Reported: JAN 10, 2024 Date Verified: JAN 10, 2024 Plastics Fabricator Or Welder E-Sig: Report: CT OF THE CHEST WITHOUT IV CONTRAST INDICATION: Chest tightness, post nasal drip, coughing. Assess for signs of interstitial lung disease. TECHNIQUE: Volumetric CT acquisition through the chest, with axial, coronal and sagittal reformats, was performed at the local [place] facility. 1194 images were received by the [place] [facility] (NTP) for interpretation. RADIATION [...] as detailed above. READING PHYSICIAN: Boy Sun -[phone] 01/10/2024 17:01 [facility] National Teleradiology Program [phone] (For Medical Practitioner Use Only) Attention Patients / Veterans: If you have questions or concerns about these test results, please contact your ordering provider or primary care team. Primary Diagnostic Code: SIGNIFICANT ABNORMALITY, ATTN NEEDED Primary Interpreting Staff: RADIOLOGY,OUTSIDE SERVICE, Staff Physician / RADIOLOGY,OUTSIDE SERVICE [place] [facility] Encounter Notes: All associated encounter notes [...] advance directive on file at any facility, [place] or outside. S/he is not interested in completing one at this time. The patient received education about Advance Directives and written notification of his/her rights. BMI>30/>24.99 High Risk: Patient declines to discuss weight management. Patient declined weight discussion. Discussed revisiting at a future visit. Influenza Immunization: Influenza, High-Dose, Trivalent, Preservative Free (Fluzone-Syringe) Administered: INFLUENZA, HIGH-DOSE, TRIVALENT, PF Date Administered: Jan 06, 2024 10:00 Dust Brush Assembler: SANOFI PASTEUR Lot: [id number] Exp Date: Sep 03, 2024 [facility]: [phone] Admin Route/Site: INTRAMUSCULAR/LEFT DELTOID Dosage: 0.5mL Vaccine Information Statement(s): INFLUENZA(FLU) VACC(INACTIVATED OR RECOMBINANT)VIS Oct 10, 2020 (FRISIAN) Order By: Policy Administered By: Suzette Woo [...] PRACTICAL NURSE Signed: 01/06/2024 10:28 SUZETTE WOO [facility] Jan 06, 2024 10:11 AM PHYSICIAN EVERARDO Cantu NOTE: LOCAL TITLE: PA NOTE STANDARD TITLE: PHYSICIAN FARM MANAGEMENT PROFESSOR NOTE DATE OF NOTE: JAN 06, 2024@10:11 [...] Gout, L Knee per [facility] [place] L Knee Aspirated NOV 28 at [place] OA, L Knee? - Minimal Relief of [...] provider. /ivone/ BOY DELONG PA-C STAFF PHYSICIAN FARM MANAGEMENT PROFESSOR Signed: 01/06/2024 10:40 BOY DELONG
--- OUTSIDE RECORDS SUMMARY | 2024-06-06 08:11 | XMS_ITS | Continuity of Care Document ---
Author Name [facility] Organization [facility] Care Team Providers Care Clay Temperer Name Role Phone [facility] Unavailable Unavailable Problems Combined list of problems [...] DELONG Comment: PtDeejay Flanagans GEN SURG al [place] Acute bronchitis Active Condition May 14, 2022 Entered By: BOY DELONG Comment: Seen SPOPC MAR 29: Dx Bronchitis; Rx'd Abx;May 14, 2022 Entered By: BOY DELONG Comment: CXR, MAR 29 No Acute Cardio-Pulmo Disease;Apr 05, 2022 Entered By: BOY DELONG Comment: Still Has Reactive Cough (after finishing abx); Tx Symptomatically Mar Entered By: BOY DELONG Comment: CT, Thorax MAY 27 at [place]:May 21, 2022 Entered By: BOY DELONG Comment: No Acute Pumo Processes; Some Atelectasis Present;May 21, 2022 Entered By: BOY DELONG Comment: Some Mild Interstial Thickening RML & LingulaMay 21, 2022 Entered By: BOY DELONG Comment: He Declines PULMO Consult as of MAY 27: May Choose To Go Later DRISCOLL Ambulatory ECG normal Active Condition Oct 20, 2022 Entered By: BOY DELONG Comment: EKG, OCT 27: NSR (has chest wall pain)Jun 02, 2023 Entered By: BOY DELONG Comment: ECHO (TTE) MAY 28: EF 60%; Mild LVH, Moderate Pulmonic Regurg;Jan 06, 2024 Entered By: BOY DELONG Comment: +Aortic Sclerosis; But, w/o Stenosis DR[place]CO[place] Benign hypertension Active Condition Apr 28, 2023 Entered By: BOY DELONG Comment: US, Carotids APR 30: No Hemodynamically Signif StenosisApr 2023 Entered By: BOY DELONG Comment: US, Aorta APR 30: no AAA DR[place]COLL Chronic cough Active Condition Jan Entered By: BOY DELONG Comment: Some Associ SOB; CT Thorax, JAN 28: No Signs ILD or Pulmo FibrosissNov 2023 Entered By: BOY DELONG Comment: CT, Thorax [place] JAN 28: Neg Signs of Interstitial Lung DiseaseNov 2023 Entered By: BOY DELONG Comment: Maxilo-Fac CT [place] JAN 28: Minimal Ethmoid/Maxillary Mucosal Thickening DR[place] Dyspnea Active Condition Mar 27 Entered By: [...] Findings c/w Post - Inflamm/Infectiou s Etio DRISCOLL Femoral acetabular impingement Active Condition Jun 10, 2023 Entered By: BOY DELONG Comment: R Side DR[place]CO[place] Foot pain Active Condition Oct 16 Entered By: BOY DELONG Comment: Bilat Plantar Fasciitis; Bilat Pes Planus DRISCOLL Gout Active Condition Jan 05 Entered By: BOY DELONG Comment: See PM&R Addendum Note Dated NOV 28; +Crystal on Aspiration L KneeSep 2023 Entered By: BOY DELONG Comment: Rx Colchicine; Check Ur Acid at Time of Next Routine LabsSep 2023 Entered By: BOY DELONG Comment: Ur Acid Historically WNL per [facility] at [facility] Housing insecurity Active Condition [facility] Hyperglycemia Active Condition Jun Entered By: BOY DELONG Comment: A1C only 5.8 as of JUN 28 DR[place] Low back pain Active Condition Oct Entered By: BOY DELONG Comment: Recurrent x Yrs; Not RadicularSep 2021 Entered By: BOY DELONG Comment: X-Ray, L-Spine NOV 26: Multi-Level Degen Jt. Disease/OASep 2021 Entered By: BOY DELONG Comment: Doing PT NOV 26 [place] Multiple renal cysts Active Condition Jun 05, 2021 Entered By: BOY DELONG Comment: US, ABD MAY 26: Multiple Benign-Appearing Renal CystsJun 05, 2021 Entered By: BOY DELONG Comment: also; Small Benign Hepatic Lesions DRISCOLL Nocturia Active Condition Mar 27 Entered By: BOY DELONG Comment: Bladder Outlet Syndome; Saw URO approx 2019 DR[place] Pain in right hip joint Active Condition Oct 13, 2022 Entered By: BOY DELONG Comment: See X-Ray Report Dated OCT 27 from [place]: Impingement Syndrome ? DRISCOLL Pain of bilateral knee regions Active Condition [...] BOY DELONG Comment: See Med Rehab Note, [place] Dated MAY 27 and MAY 28Nov 2023 Entered By: BOY DELONG Comment: pending Ortho Eval FEB 27 [place] Sciatica Active Condition Feb 02 Entered By: BOY DELONG Comment: Degen Arthritis, L-Spine (X Ray [place] 2021) DRISCOLL Screening for malignant neoplasm of colon done Active Condition Mar 27, 2021 Entered By: BOY DELONG Comment: Screen Colonoscopy 2019; No CRC; +Benign PolypsMar 27, 2021 Entered By: BOY DELONG Comment: repeat 2024 [place] Diagnosis: ICD-10-CM M17.0 Bilateral primary osteoarthritis of knee Active Diagnosis [facility] Diagnosis: ICD-10-CM F32.1 Major depressive disorder, single episode, moderate Active Diagnosis [facility] Diagnosis: ICD-10-CM M54.30 Sciatica, unspecified side Active Diagnosis [facility] Diagnosis: ICD-10-CM R73.9 Hyperglycemia, unspecified Active Diagnosis [place] Diagnosis: ICD-10-CM Z59.819 Housing instability, housed unspecified Active Diagnosis [facility] A[facility] Diagnosis: ICD-10-CM Z59.811 Housing instability, housed, with risk of homelessness Active Diagnosis [facility] ([id number]) Diagnosis: ICD-10-CM M25.859 Other specified joint disorders, unspecified hip Active Diagnosis [facility] LE[facility]AN EUGEN[facility] Diagnosis: ICD-10-CM Z71.89 Other specified counseling Active Diagnosis [place] Diagnosis: ICD-10-CM M25.561 Pain in right knee Active Diagnosis [facility] Diagnosis: ICD-10-CM I48.11 Longstanding persistent atrial fibrillation Active Diagnosis [facility] Diagnosis: ICD-10-CM I10 Essential (primary) hypertension [facility] Diagnosis: ICD-10-CM M16.11 Unilateral primary osteoarthritis, right hip Active Diagnosis [facility] [facility] Diagnosis: ICD-10-CM M25.551 Pain in right hip Active Diagnosis [facility] Medications Combined list of outpatient medications from Department of Defense and Veterans Affairs facilities.Medications provided include 1) outpatient medications from the last 15 months, and 2) patient-reported medications. Medication Details Route Status Patient Instructions Prescription Expires Prescription Number Last Dispense Date Ordering Provider Order Date Order Qty Source ALBUTEROL 90MCG/ACTUA T (CFC-F) INHL,ORAL,8 .5GM DOSE COUNTER INHALE 1 PUFF BY MOUTH ONCE DAILY NEEDED FOR BRONCHOS PASM RESPIR ATORY (INHAL ATION) ACTIVE 06/10/2024 [id number] BENNY DELONG 2023 1 [place] AMLODIPINE BESYLATE 10MG TAB TAKE ONE TABLET BY MOUTH ONCE DAILY FOR BLOOD PRESSURE /HEART, DO NOT TAKE WITH GRAPEFRU IT JUICE ORAL ACTIVE 01/06/2025 [id number] 4 BENNY DELONG 2023 90 [place] AMLODIPINE BESYLATE 10MG TAB TAKE ONE TABLET BY MOUTH ONCE DAILY FOR BLOOD PRESSURE /HEART, DO NOT TAKE WITH GRAPEFRU IT JUICE ORAL DISCONT INUED 04/04/2024 [id number] BENNY DELONG JEREMY 2023 90 [place] CELECOXIB 200MG CAP TAKE ONE CAPSULE BY MOUTH TWICE DAILY NEEDED FOR RHEUMATO ID ARTHRITI S ORAL ACTIVE 08/09/2024 [id number] BALJEETBENNY LUNA 2023 60 [facility] CETIRIZINE HCL 10MG TAB TAKE TWO TABLETS BY MOUTH ONCE DAILY FOR ALLERGIE S ORAL ACTIVE 02/03/2025 [id number] BALJEETBENNY LUNA 2023 60 [place] COLCHICINE 0.6MG TAB [...] TABLETS PER 30 DAYS] ORAL ACTIVE 12/27/2024 [id number] BALJEETBENNY LUNA 2023 6 [place] COLCHICINE 0.6MG TAB [...] PER 30 DAYS] ORAL DISCONT INUED 11/23/2024 [id number] DELONGBENNY 2023 6 [place] DOXEPIN 3MG TAB TAKE ONE TABLET BY MOUTH AT BEDTIME NEEDED FOR INSOMNIA ORAL ACTIVE 09/09/2024 [id number] ASHOK MARION 2023 30 [facility] HYALURONATE NA (DUROLANE) 20MG/ML INJ,SYRINGE ,3ML INJECT 60MG INTRA-AR TICULAR ONE TIME OSTEOART HRITIS OF THE KNEE INTRA- ARTICU LAR ACTIVE 05/12/2025 [id number] 5 JAM MCFADDEN Joey 2024 2 [facility] HYALURONATE NA (DUROLANE) 20MG/ML INJ,SYRINGE ,3ML INJECT 60MG INTRA-AR TICULAR ONE TIME OSTEOART HRITIS OF THE KNEE INTRA- ARTICU LAR DISCONT INUED 04/01/2024 [id number] JAM MCFADDEN Joey 2023 [facility] HYDROCHLORO THIAZIDE 25MG TAB TAKE ONE-HALF TABLET BY MOUTH ONCE DAILY ORAL ACTIVE 01/06/2025 [id number] BENNY DELONG 2023 45 [place] HYDROCHLORO THIAZIDE 25MG TAB TAKE ONE-HALF TABLET BY MOUTH ONCE DAILY ORAL DISCONT INUED 04/04/2024 [id number] BENNY DELONG 2023 45 [place] LORATADINE 10MG TAB TAKE ONE TABLET BY MOUTH ONCE DAILY FOR ALLERGY ORAL DISCONT INUED BY PROVIDE R 06/10/2024 [id number] BENNY DELONG 2023 30 [place] LOSARTAN 25MG TAB TAKE ONE TABLET BY MOUTH ONCE DAILY FOR BLOOD PRESSURE /HEART ORAL DISCONT INUED 09/08/2023 [id number] 4 BENNY DELONG 2023 90 [place] LOSARTAN 25MG TAB TAKE ONE TABLET BY MOUTH ONCE DAILY FOR BLOOD PRESSURE /HEART ORAL DISCONT INUED 08/22/2023 [id number] BENNY DELONG 2023 90 [facility] LOSARTAN 25MG TAB TAKE ONE TABLET BY MOUTH ONCE DAILY FOR BLOOD PRESSURE /HEART ORAL DISCONT INUED 04/04/2024 [id number] BENNY DELONG 2023 30 [place] LOSARTAN 25MG TAB TAKE ONE TABLET BY MOUTH ONCE DAILY FOR BLOOD PRESSURE /HEART ORAL 04/05/2024 [id number] BENNY DELONG 2023 90 [place] MULTIVITAMI NS CAP/TAB TAKE 1 TABLET BY MOUTH ONCE DAILY FOR VITAMIN SUPPLEME NTATION ORAL ACTIVE 10/28/2024 [id number] ASHOK MARIONDE D 2023 100 [facility] SERTRALINE HCL 100MG TAB TAKE ONE TABLET BY MOUTH ONCE DAILY FOR MAJOR DEPRESSI VE DISORDER ORAL ACTIVE 04/11/2025 [id number] 5 RAGUINDIN ,JASPER MATIAS D 2024 90 [facility] SERTRALINE HCL 100MG TAB TAKE ONE-HALF TABLET BY MOUTH ONCE DAILY FOR MAJOR DEPRESSI VE DISORDER ORAL DISCONT INUED BY PROVIDE R 10/28/2024 [id number] 5 PRETTY MARIONER MATIAS D 2023 45 [facility] SERTRALINE HCL 100MG TAB TAKE ONE-HALF TABLET BY MOUTH ONCE DAILY FOR MAJOR DEPRESSI VE DISORDER ORAL DISCONT INUED (EDIT) 09/09/2024 [id number] 4 RAGROHANDIN MONIQUESPER MATIAS D 2023 15 [facility] SERTRALINE HCL 50MG TAB TAKE ONE-HALF TABLET BY MOUTH ONCE DAILY FOR MAJOR DEPRESSI VE DISORDER ORAL DISCONT INUED (EDIT) 08/05/2024 [id number] MONIQUE MARIONSPER MATIAS D 2023 15 [facility] SILDENAFIL CITRATE [...] TABLET AT ONE TIME ORAL ACTIVE 07/25/2024 [id number] 4 BENNY DELONG 2023 6 [place] Immunizations Combined list of available immunizations from the Department of Defense and Veterans Affairs facilities. Immunization Series Date Given Administered By Site Reaction Lot Number CVX Code Drug Welt Slasher Status Comments Source INFLUENZA, HIGH-DOSE, TRIVALENT, PF 2023 KATHLEEN WOO LEFT DELTO ID [id number] A 135 complet ed [facility] IELD INFLUENZA, INJECTABLE, QUADRIVALENT, PRESERVATIVE FREE 2022 KATHLEEN WOO LEFT DELTO ID [id number] A 150 complet ed [place] INFLUENZA, INJECTABLE, QUADRIVALENT, PRESERVATIVE FREE 2021 150 complet ed [place] COVID-19 (PFIZER), MRNA, LNP-S, PF, 30 MCG/0.3 ML DOSE 3 2020 208 complet ed [facility] COVID-19 (PFIZER), MRNA, LNP-S, PF, 30 MCG/0.3 ML DOSE 2 2020 208 complet ed [facility] COVID-19 (PFIZER), MRNA, LNP-S, PF, 30 MCG/0.3 ML DOSE 1 2020 208 complet ed [facility] Results Combined list of recent chemistry, hematology and other laboratory results from Department of Defense and Veterans Affairs, ranging from 15 months to all on record, depending upon the facility. Order Name Results Value Reference Range Date Interpretation Specimen Comments Source HLA-B27 (QU) HLA-B27 [PRESENCE] Negative 02/15 Specimen Type: BLOOD Comment: Test Performed by [employer] [facility], [address] [place] [address] Rajesh Doss M.D., Ph.D., Director of Laboratorie s , CLIA [id number] TEST PERFORMED AT: , Ordering Provider: BOY DELONG Report Released Date/Time: Feb 03, 2024 03:52 PM Reporting Lab: [facility] [address] [facility] [address] Performing Lab: [facility] [employer] [place] [address] [place] MICHA SCREEN/T ITER NUCLEAR AB [PRESENCE] IN SERUM NEG NEG <1:40 - 140 02/15 Specimen Type: SERUM Comment: 2+ Cytoplasmic staining observed. Ordering Provider: BOY DELONG Report Released Date/Time: Feb 03, 2024 03:52 PM Reporting Lab: [facility] [address] [facility] [address] Performing Lab: [facility] [address] [facility] [address] [place] RHEUMATO ID FACTOR RHEUMATOID FACTOR [UNITS/VOL UME] IN SERUM BY NEPHELOMET RY <15 0 - 15 02/15 Specimen Type: SERUM No comment entered. Ordering Provider: BOY DELONG Report Released Date/Time: Feb 03, 2024 03:52 PM Reporting Lab: [address] [address] Performing Lab: [facility] [address] [facility] [address] [employer] Storage SystemsFIE LD C REACTIVE PROTEIN HS (WROX) C REACTIVE PROTEIN [MASS/VOLU ME] IN SERUM OR PLASMA BY HIGH SENSITIVIT Y METHOD 6.46 mg/L 02/15 Specimen Type: SERUM Comment: Reference range changed on 08/25/10 [facility] reference ranges for ages >17 years: hsCRP [...] Feb 03, 2024 03:52 PM Reporting Lab: [facility] [address] [facility] [address] Performing Lab: [facility] [address] [facility] [address] [place] SED RATE, AUTOMATE D ERYTHROCYT E SEDIMENTAT ION RATE BY WESTERGREN METHOD 3 mm/h 0 - 20 02/15 Specimen Type: BLOOD No comment entered. Ordering Provider: BOY DELONG Report Released Date/Time: Feb 03, 2024 03:52 PM Reporting Lab: [facility] [address] [facility] [address] Performing Lab: [facility] [address] [facility] [address] [place] MICROALB UMIN CREATINI NE RATIO PANEL MICROALBUM IN/CREATIN INE [MASS RATIO] IN URINE 13.8 mg/g 0 - 29.9 01/05 Specimen Type: URINE No comment entered. Ordering Provider: BOY DELONG Report Released Date/Time: Nov 23, 2023 08:33 AM Reporting Lab: [facility] TRN [address] [address] Performing Lab: [facility] [address] [facility] [address] [place] MICROALB UMIN CREATINI NE RATIO PANEL MICROALBUM IN [MASS/VOLU ME] IN URINE 2.5 mg/dL 01/05 Specimen Type: URINE No comment entered. Ordering Provider: BOY DELONG Report Released Date/Time: Nov 23, 2023 08:33 AM Reporting Lab: [facility]N [facility] [address] [facility] [address] Performing Lab: [facility]N [facility]ITAL[facility] [address] [address] [place] MICROALB UMIN CREATINI NE RATIO PANEL CREATININE [MASS/VOLU ME] IN URINE 180.82 mg/dL 01/05 Specimen Type: URINE No comment entered. Ordering Provider: BOY DELONG Report Released Date/Time: Nov 23, 2023 08:33 AM Reporting Lab: [facility] [address] [facility] [address] Performing Lab: [facility]ITALRST. [facility]INCENT[facility] CHILTONTRN [facility] HOSPITALUSE[address] [address] [place] URINALYS IS COLOR OF URINE Light-Ye llow 01/05 Specimen Type: URINE Comment: If Glucose = >500 and Ketones are positive, please alert the Physician. Ordering Provider: BOY DELONG Report Released Date/Time: Nov 23, 2023 08:33 AM Reporting Lab: [address] [address] Performing Lab: [address] [address] [place] URINALYS IS APPEARANCE OF URINE Clear 01/05 Specimen Type: URINE Comment: If Glucose = >500 and Ketones are positive, please alert the Physician. Ordering Provider: BOY DELONG Report Released Date/Time: Nov 23, 2023 08:33 AM Reporting Lab: [address] [phone] Performing Lab: [address] [address] [place] URINALYS IS GLUCOSE [MASS/VOLU ME] IN URINE Normalmg /dL 01/05 Specimen Type: URINE Comment: If Glucose = >500 and Ketones are positive, please alert the Physician. Ordering Provider: BOY DELONG Report Released Date/Time: Nov 23, 2023 08:33 AM Reporting Lab: [address] [address] Performing Lab: [address] [address] [place] URINALYS IS KETONES [MASS/VOLU ME] IN URINE BY TEST STRIP NEGATIVE mg/dL 01/05 Specimen Type: URINE Comment: If Glucose = >500 and Ketones are positive, please alert the Physician. Ordering Provider: BOY DELONG Report Released Date/Time: Nov 23, 2023 08:33 AM Reporting Lab: [facility] [address] [address] Performing Lab: [address] [address] [place] URINALYS IS ERYTHROCYT ES [PRESENCE] IN URINE SEDIMENT BY LIGHT MICROSCOPY NEGATIVE mg/dL 01/05 Specimen Type: URINE Comment: If Glucose = >500 and Ketones are positive, please alert the Physician. Ordering Provider: BOY DELONG Report Released Date/Time: Nov 23, 2023 08:33 AM Reporting Lab: [address] [address] Performing Lab: [address] [address] [place] URINALYS IS PROTEIN [MASS/VOLU ME] IN URINE BY TEST STRIP 10 mg/dL 01/05 Specimen Type: URINE Comment: If Glucose = >500 and Ketones are positive, please alert the Physician. Ordering Provider: BOY DELONG Report Released Date/Time: Nov 23, 2023 08:33 AM Reporting Lab: [address] [address] Performing Lab: [address] [address] [place] URINALYS IS NITRITE [PRESENCE] IN URINE NEGATIVE mg/dL 01/05 Specimen Type: URINE Comment: If Glucose = >500 and Ketones are positive, please alert the Physician. Ordering Provider: BOY DELONG Report Released Date/Time: Nov 23, 2023 08:33 AM Reporting Lab: [address] [address] Performing Lab: [address] [address] [place] URINALYS IS BILIRUBIN. TOTAL [PRESENCE] IN URINE NEGATIVE mg/dL 01/05 Specimen Type: URINE Comment: If Glucose = >500 and Ketones are positive, please alert the Physician. Ordering Provider: BOY DELONG Report Released Date/Time: Nov 23, 2023 08:33 AM Reporting Lab: [address] [address] Performing Lab: [address] [address] [place] URINALYS IS SPECIFIC GRAVITY OF URINE BY REFRACTOME TRY 1.024 1.016 - 1.022 01/05 H Specimen Type: URINE Comment: If Glucose = >500 and Ketones are positive, please alert the Physician. Ordering Provider: BOY DELONG Report Released Date/Time: Nov 23, 2023 08:33 AM Reporting Lab: [address] [address] Performing Lab: [address] [address] [place] URINALYS IS PH OF URINE BY TEST STRIP 5.5 5.0 - 9.0 01/05 Specimen Type: URINE Comment: If Glucose = >500 and Ketones are positive, please alert the Physician. Ordering Provider: BOY DELONG Report Released Date/Time: Nov 23, 2023 08:33 AM Reporting Lab: [address] [address] Performing Lab: [address] [address] [employer] Storage SystemsFIE LD URINALYS IS UROBILINOG EN [MASS/VOLU ME] IN URINE BY TEST STRIP Normalmg /dL <2.0 - 2.0 01/05 Specimen Type: URINE Comment: If Glucose = >500 and Ketones are positive, please alert the Physician. Ordering Provider: BOY DELONG Report Released Date/Time: Nov 23, 2023 08:33 AM Reporting Lab: [address] [address] Performing Lab: [address] [address] [place] URINALYS IS LEUKOCYTE ESTERASE [PRESENCE] IN URINE BY TEST STRIP NEGATIVE 01/05 Specimen Type: URINE Comment: If Glucose = >500 and Ketones are positive, please alert the Physician. Ordering Provider: BOY DELONG Report Released Date/Time: Nov 23, 2023 08:33 AM Reporting Lab: [address] [address] Performing Lab: [address] [place] [address] [place] URIC ACID URATE [MASS/VOLU ME] IN SERUM OR PLASMA 5.7 mg/dL 3.5 - 7.2 01/05 Specimen Type: SERUM No comment entered. Ordering Provider: BOY DELONG Report Released Date/Time: Nov 23, 2023 08:33 AM Reporting Lab: [facility] [address] [facility] [address] Performing Lab: [facility] [address] [facility] [address] [place] CALCIUM CALCIUM [MASS/VOLU ME] IN SERUM OR PLASMA 9.0 mg/dL 8.5 - 10.2 01/05 Specimen Type: SERUM No comment entered. Ordering Provider: BOY DELONG Report Released Date/Time: Nov 23, 2023 08:33 AM Reporting Lab: [facility] [address] [address] Performing Lab: [facility]USE[address] [address] [place] BASIC METABOLI C PANEL (fasting ) UREA NITROGEN [MASS/VOLU ME] IN SERUM OR PLASMA 18 mg/dL 7 - 25 01/05 Specimen Type: SERUM No comment entered. Ordering Provider: BOY DELONG Report Released Date/Time: Nov 23, 2023 08:33 AM Reporting Lab: [facility] [address] [facility] [address] Performing Lab: [facility] [address] [place] BASIC METABOLI C PANEL (fasting ) GLUCOSE [MASS/VOLU ME] IN SERUM OR PLASMA 108 mg/dL 65 - 100 01/05 H Specimen Type: SERUM No comment entered. Ordering Provider: BOY DELONG Report Released Date/Time: Nov 23, 2023 08:33 AM Reporting Lab: [facility]ITALRST. [facility]INCENT'[facility] CHILTONTRN [address] [address] Performing Lab: [facility] [address] [address] [place] BASIC METABOLI C PANEL (fasting ) SODIUM [MOLES/VOL UME] IN SERUM OR PLASMA 140 mmol/L 135 - 145 01/05 Specimen Type: SERUM No comment entered. Ordering Provider: BOY DELONG Report Released Date/Time: Nov 23, 2023 08:33 AM Reporting Lab: [facility] [address] [facility] [address] Performing Lab: [facility] [address] [facility] [address] [place] BASIC METABOLI C PANEL (fasting ) POTASSIUM [MOLES/VOL UME] IN SERUM OR PLASMA 3.9 mmol/L 3.5 - 5.0 01/05 Specimen Type: SERUM No comment entered. Ordering Provider: BOY DELONG Report Released Date/Time: Nov 23, 2023 08:33 AM Reporting Lab: [address] [address] Performing Lab: [address] [address] [employer]FI[employer] BASIC METABOLI C PANEL (fasting ) CHLORIDE [MOLES/VOL UME] IN SERUM OR PLASMA 111 mmol/L 100 - 110 01/05 H Specimen Type: SERUM No comment entered. Ordering Provider: BOY DELONG Report Released Date/Time: Nov 23, 2023 08:33 AM Reporting Lab: [address] [address] Performing Lab: [address] [address] [employer] Storage SystemsFIE [place] BASIC METABOLI C PANEL (fasting ) CARBON DIOXIDE, TOTAL [MOLES/VOL UME] IN SERUM OR PLASMA 21 meq/L 20 - 30 01/05 Specimen Type: SERUM No comment entered. Ordering Provider: BOY DELONG Report Released Date/Time: Nov 23, 2023 08:33 AM Reporting Lab: [facility] [address] [address] Performing Lab: [address] [address] [place] BASIC METABOLI C PANEL (fasting ) CREATININE [MASS/VOLU ME] IN SERUM OR PLASMA 1.13 mg/dL 0.50 - 1.40 01/05 Specimen Type: SERUM No comment entered. Ordering Provider: BOY DELONG Report Released Date/Time: Nov 23, 2023 08:33 AM Reporting Lab: [facility]ITALRST[facility]INCENT'[facility] CHILTONTRN [place] [facility] [address] [facility] [address] Performing Lab: [facility]ITALUSE[facility] [address] [facility] [address] [employer] BASIC METABOLI C PANEL (fasting ) GLOMERULAR FILTRATION RATE/1.73 SQ M.PREDICTE D [VOLUME RATE/AREA] IN SERUM, PLASMA OR BLOOD BY CREATININE -BASED FORMULA (CKD-EPI 2020) 74 mL/min 60 01/05 Specimen Type: SERUM No comment entered. Ordering Provider: BOY DELONG Report Released Date/Time: Nov 23, 2023 08:33 AM Reporting Lab: [facility]ITALRST[facility]INCENT'[facility] CHILTONTRN [place] [facility] [address] [facility] [address] Performing Lab: [facility]ITALRST[facility]INCENT'[facility] CHILTONTRN [place] [facility] [address] [facility] [address] [employer] Vital Signs Combined list of inpatient and outpatient Vital Signs from Department of Defense and Veterans Affairs, ranging from 12 months to all on record, depending upon the facility. Vital Sign Value Date Comments Source SYSTOLIC BLOOD PRESSURE 130 05/29/19 25 10:33:02 [facility] [place] [facility] DIASTOLIC BLOOD PRESSURE 80 025 10:33:02 [facility] [facility] [place] [facility] PAIN 5 05/28/2024 10:33:02 [facility] [place] [facility] SYSTOLIC BLOOD PRESSURE 130 02/03/20 24 15:58:31 [facility] DIASTOLIC BLOOD PRESSURE 88 024 15:58:31 [facility] WEIGHT 245.6 02/03/2024 15:58:31 [facility] BMI 33 kg/m2 02/03/2024 15:58:31 [facility] PAIN 1 02/03/2024 15:58:31 [facility] HEIGHT 72 02/03/2024 15:58:31 [facility] PULSE 78 02/03/2024 15:58:31 [facility] RESPIRATION 20 02/03/2024 15:58:31 [facility] SYSTOLIC BLOOD PRESSURE 124 01/13/20 13:11:51 [facility] [place] [facility] DIASTOLIC BLOOD PRESSURE 70 13:11:51 [facility] [place] PAIN 3 01/13/2024 13:11:51 [place] [facility] [place] [facility] SYSTOLIC BLOOD PRESSURE 101 01/06/20 24 10:15:06 [facility] DIASTOLIC BLOOD PRESSURE 80 024 10:15:06 [facility] PULSE OXIMETRY 95 01/06/2024 10:15:06 [facility] WEIGHT 244 01/06/2024 10:15:06 [facility] BMI 33 kg/m2 01/06/2024 10:15:06 [facility] TEMPERATURE 97 01/06/2024 10:15:06 [facility] PULSE 76 01/06/2024 10:15:06 [facility] RESPIRATION 18 01/06/2024 10:15:06 [facility] SYSTOLIC BLOOD PRESSURE 134 06/10/19 11:37:12 [facility] DIASTOLIC BLOOD PRESSURE 84 024 11:37:12 [facility] WEIGHT 239.4 06/10/2023 11:37:12 [facility] BMI 33 kg/m2 06/10/2023 11:37:12 [facility] TEMPERATURE 96.8 06/10/2023 11:37:12 [facility] PULSE 73 06/10/2023 11:37:12 [facility] Encounters Combined list of: 1) Encounters from Department of [facility] Affairs facilities going backup to the last 18 months, not all [place] inpatient encounters are included; 2) Encounters from the Department of [facility] facilities going backup to 280 months. Location Location Details Encounter Type Encounter Number Reason For Visit Attending Provider ADM Date DC Date Status Disposition Source [facility] [place] [facility] OFFICE O/P EST LOW 20-29 MIN [id number] Diagnos is: ICD-10- CM M16.11 Unilate ral primary osteoar thritis , right hip Karlos MCFADDEN 12/07 [facility] [place] Outpatient Encounter [id number] 12/10 [facility] Encounter [id number] 12/10 [facility] Encounter [id number] 12/14 [facility] [place] [facility]/P EST MOD 30-39 MIN [id number] Diagnos is: ICD-10- CM I10 Essenti al (primar y) hyperte nsyao DELONGJLIL N 12/14 [place] [facility] Out[facility] Encounter [id number] 12/27 [facility] [place] OFF/OP EST MAY X REQ PHY/QHP [id number] Diagnos is: ICD-10- CM I10 Essenti al (primar y) hyperte nsion STEFANO GOMEZ Y N 01/07 [place] [facility] [place] OFFICE O/P EST HI 40-54 MIN [id number] Diagnos is: ICD-10- CM M25.551 Pain in right hip SONI SMITH 02/02 [facility] Encounter [id number] 02/02 [facility] Encounter [id number] 02/04 [facility] Encounter [id number] 03/01 [facility] OFF[facility] O/P EST LOW 20 MIN [id number] Diagnos is: ICD-10- CM M16.11 Unilate ral primary osteoar thritis , right hip Karlos MCFADDEN L 04/01 [facility] [place] [place] [facility] [place] [facility] QNHP OL DIG ASSMT&MGMT 11-20 [id number] Diagnos is: ICD-10- CM M17.0 Bilater al primary osteoar thritis of knee TEP,CRISSY Ochoa SHANKAR 04/01 [facility] [place] [facility] [place] Outpatient Encounter [id number] GREGORIO 04/04 [facility] [place] [place] [facility] [place] OFFICE O/P EST LOW 20 MIN [id number] Diagnos is: ICD-10- CM I10 Essenti al (primar y) hyperte nsJILL Llanos N 04/04 [place] [facility] [place] Outpatient Encounter [id number] 04/15 [facility] [place] [place] [facility] [place] [facility] TTE W/DOPPLER COMPLETE [id number] Diagnos is: ICD-10- CM I10 Essenti al (primar y) hyperte nsyao ABDIFATAH YOON 05/12 [facility] [place] [place] [facility] T[place] W/DOPPLER COMPLETE [id number] Diagnos is: ICD-10- CM I48.11 Longsta nding persist ent atrial fibrill ation Leandro BYRNES 05/15 [place] [facility] [place] [facility] OFFICE O/P EST LOW 20 MIN [id number] Diagnos is: ICD-10- CM M25.561 Pain in right knee Karlos MCFADDEN L 05/22 [facility] En[facility] [id number] 05/22 [facility] Encounter [id number] 06/01 [facility] [place] [place] [facility] [place] OFFICE O/P EST MOD 30 MIN [id number] Diagnos is: ICD-10- CM R73.9 Hypergl ycemia, unspeci fied JILL DELONG 06/09 [place] [facility] En[facility] [id number] 06/09 [facility] [place] [place] [facility] [place] Outpatient Encounter [id number] 06/16 [place] [facility] OFF/OP EST MAY X REQ PHY/QHP [id number] Diagnos is: ICD-10- CM 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 GABI Tom O 06/20 [place] [facility] OFFICE O/P EST LOW 20 MIN [id number] Diagnos is: ICD-10- CM M25.859 Other specifi ed joint disorde rs, unspeci fied hip Karlos MCFADDEN L 06/23 [facility] En[facility] [id number] 07/04 [facility] [place] Out[facility] Encounter [id number] 07/17 [facility] [place] [place] [facility] [place] PSYCH DIAGNOSTIC EVALUATION [id number] Diagnos is: ICD-10- CM F32.1 Major depress jonny disorde r, single episode , moderat e LJ ASHLEY 07/21 [place] [facility] MNGMENT TRAINING [id number] Diagnos is: ICD-10- CM M17.0 Bilater al primary osteoar thritis of knee DANNEN,ABIMAEL HAEL 08/02 [place] [facility] MTMS BY PHARM ADDL 15 MIN [id number] Diagnos is: ICD-10- CM F32.1 Major depress jonny disorde r, single episode , moderat e ASHOK MARION 08/04 [facility] En[facility] [id number] 08/04 [facility] [place] Out[facility] Encounter [id number] 08/07 [facility] [place] Encounter [id number] 08/09 [facility] [place] Encounter [id number] 08/10 [facility] [place] Out[facility] Encounter [id number] 08/11 [facility] [place] [id number] Diagnos is: ICD-10- CM M17.0 Bilater al primary osteoar thritis of knee DANNEN,ABIMAEL HAEL 08/18 [place] [facility] Encounter [id number] 09/01 [facility] En[facility] [id number] 09/01 [facility] Encounter [id number] 09/05 [facility] MTMS BY PHARM ADDL 15 MIN [id number] Diagnos is: ICD-10- CM F32.1 Major depress jonny disorde r, single episode , moderat e ASHOK MARION 09/08 [facility] En[facility] [id number] 09/20 [facility] En[facility] [id number] 10/06 [facility] [place] Encounter [id number] 10/13 [facility] [place] Encounter [id number] 10[facility]13 [facility] [place] Encounter [id number] 10/13 [facility] [place] Encounter [id number] 10/18 [facility] [place] Encounter [id number] 10/20 [facility] [place] Encounter [id number] 10/23 [facility] [place] ([id number] HC PRO PHONE CALL 5-10 MIN [id number] Diagnos is: ICD-10- CM Z59.811 Housing instabi lity, housed, with risk of homeles jania DownsDIAMOND Rhona 10/25 [facility] Encounter [id number] 10/26 [facility] [place] MTMS BY PHARM ADDL 15 MIN [id number] Diagnos is: ICD-10- CM F32.1 Major depress jonny disorde r, single episode , moderat e ASHOK MARION 10/27 [facility] PT EDUCATION NOC INDIVID [id number] Diagnos is: ICD-10- CM Z59.819 Housing instabi lity, housed unspeci KRISTA Mullins 10/27 [facility] Encounter [id number] [facility] [place] Encounter [id number] 11/10 [facility] [place] Encounter [id number] 11/13 [facility] [place] Encounter [id number] [facility] OFFICE O/P EST LOW 20 MIN [id number] Diagnos is: ICD-10- CM M17.0 Bilater al primary osteoar thritis of knee Karlos MCFADDEN 11/16 [facility] En[facility] [id number] 11/16 [facility] [place] Encounter [id number] [facility] [place] Encounter [id number] 12/01 [facility] [place] HC PRO PHONE CALL 5-10 MIN [id number] Diagnos is: ICD-10- CM Z59.819 Housing benny almodovar, housed unspeci rosita KRISTA HESS 12/06 [facility] Out[facility] En[facility] [id number] 12/25 [facility] HC PRO PHONE CALL 5-10 MIN [id number] Diagnos is: ICD-10- CM Z59.819 Housing benny almodovar, housed unspeci rosita KRISTA HESS 01/02 [facility] Out[facility] Encounter [id number] RA MIRTHA BLUM 01/04 [facility] [place] OFFICE O/P EST MOD 30 MIN [id number] Diagnos is: ICD-10- CM R73.9 Hypergl ycemia, unspeci fied DELONGJILL N 01/05 [place] [facility] MTMS BY PHARM ADDL 15 MIN [id number] Diagnos is: ICD-10- CM F32.1 Major depress jonny disorde r, single episode , moderASHOK Torres 01/12 [facility] [place] [place] [facility] OFFICE O/P EST LOW 20 MIN [id number] Diagnos is: ICD-10- CM M17.0 Bilater al primary osteoar thritis of knee Karlos MCFADDEN 01/12 [facility] [place] En[facility] [id number] 1.01/22 [facility] [place] [place] [facility] Outpatient Encounter [id number] 1.01/23 [facility] [place] [place] [facility] OFFICE O/P EST MOD 30 MIN [id number] Diagnos is: ICD-10- CM M54.30 Sciatic a, unspeci fied side JILL DELONG 02/02 [place] [facility] Encounter [id number] 03/01 [facility] [place] Encounter [id number] 04/06 [facility] [place] MTMS BY PHARM ADDL 15 MIN [id number] Diagnos is: ICD-10- CM F32.1 Major depress jonny disorde r, single episode , moderat e RAGUINEMMA, JASPER MATIAS D 04/10 [facility] [place] [place] [facility] [place] [facility] Outpatient [facility]counter [id number] 05/11 [facility] [place] [facility] [place] [facility] MTMS BY PHARM ADDL 15 MIN [id number] Diagnos is: ICD-10- CM F32.1 Major depress jonny disorde r, single episode , moderat e RAGUINDIN, JASPER MATIAS D 05/15 [facility] [place] [place] [facility] [place] [facility] Outpatient Encounter [id number] 05/15 [facility] [place] [place] [facility] [place] [facility] Outpatient Encounter [id number] Chintan GIBSON 05/21 [facility] [place] [place] [facility] [place] [facility] OFFICE O/P EST LOW 20 MIN [id number] Diagnos is: ICD-10- CM M17.0 Bilater al primary osteoar thritis of knee Karlos MCFADDEN 05/28 [facility] [place] [place] [facility] Outpatient Encounter [id number] 05/28 [facility] [place] [place] [facility] Social History Combined list of available smoking, tobacco, and other social history from Department of Defense and Veterans Affairs facilities. Social History Type Response Date Comment Sourc e Tobacco smoking status [facility]IS [facility]-TOBACCO NEVER USED 06/10/19 [facility] History of tobacco use [place]-TOBACCO NEVER USED 05/14/2022 [facility] History of tobacco use [place]-TOBACCO NEVER USED 03/27/2021 [facility] Plan of Care List of future care activities from Department of Veterans Affairs facilities. Additional future care activities may be listed in the Assessment and Plan section. Date/Time Care Activity Care Activity Detail Facili ty 07/10/2024 AMBULATORY - PSYCHIATRY [place] [place] [facility] [facility]
--- OUTSIDE RECORDS SUMMARY | 2024-06-06 08:11 | XMS_ITS ---
Author Name [facility] [place] [facility] [facility] [place] Address [address] [place] [address] Care Team Providers Care Production Weigher Name Role Phone BOY DELONG Primary Care [...] [facility] Mar 07, 2020 [facility] [id number] MARGARETH HONG RRYL PATIENT Selected Encounter This section includes the information on record at [place] for the Encounter. Date/Time Encounter Type Encounter Description Reason Pro vider Source Apr 06, 2024 10:00 AM Outpatient Encounter [facility] Encounter Template Text not used by [place] Plan of Treatment: Future Appointments (+ 6 [...] Appointment Type Appointme nt Facility Name Apr 10, 2024 09:00 AM [place] [facility] May 15, 2024 09:00 AM [place] [facility] [place] [facility] May 15, 2024 10:30 AM AM[place] [facility] [place] [facility] May 28, 2024 10:30 AM AMBULATORY - MEDICINE [facility] [place] [facility] July 10, 2024 10:00 AM [facility] Active, Pending, and Scheduled Orders This section includes a listing of several types of active, pending, and scheduled orders, including clinic medications orders, diagnostic test orders, procedure orders and consult orders; where the start date of the order is 45 days before the date of the Encounter or 45 days after the date of theEncounter. The data comes from all [place] treatment facilities. Test Date/Time Test Type Test Details Facility Name Apr 10, 2024 09:42 AM Consult Order PSYCHOTHER APOLINAR ELDER/NOLAN OUTPT Cons [facility] Encounter Notes: All associated encounter notes This section contains the clinical notes associated to the Encounter. Date/Time Encounter Note(s) Provider Source Apr 06, 2024 10:29 AM CLERICAL NOTE: LOCAL TITLE: APPOINTMENT NO SHOW STANDARD TITLE: CLERICAL NOTE DATE OF NOTE: APR 06, 2024@10:29 ENTRY DATE: APR 06, 2024@10:29:03 AUTHOR: DIEUDONNE MEEHAN COSIGNER: URGENCY: STATUS: COMPLETED Patient Name: LUPILLO HONG Patient SSN: [id number] Date and time of Appointment No show : 04/06/24 10:00 PATIENT PHONE - PHONE NUMBER [CELLULAR] - NONE FOUND Patient's medical record was reviewed. Follow-up actions were determined and initiated: Please check/complete as applies: [X]Telephoned Directly [ ]Re-scheduled for next available appt [X]Sent a N0-show letter ( must call for appointment) [ ]Other (Emergent/Overbook, etc.): Additional Comments: Vet did not connect to [address] [facility] appt. called, but no response. left to return call at [phone]. no-show letter to be sent for rescheduling purposes. Future Clinic Visits 05/14/2024 10:30 [facility] /ivone/ Dieudonne Everett. Aleena Meehan Clinical Pharmacist Practitioner Signed: 04/06/2024 10:29 Receipt Acknowledged By: 04/09/2024 08:13 /ivone/ [facility] DIEUDONNE MEEHAN [facility]
--- OUTSIDE RECORDS SUMMARY | 2024-06-06 08:11 | XMS_ITS ---
Author Name [facility] [place] [facility] [place] Address [address] [place] [address] Care Team Providers Care Lean Manager Name Role Phone BOY DELONG Primary [...] RX PRESCRIPT ION HEALT H NEW ENGL [facility] Mar 07, 2020 [facility] [id number] MARGARETH HONG RRYL PATIENT Selected Encounter [...] NONE [facility] Jan 13, 2024 10:00 AM AMBULATORY [facility] Jan 13, 2024 01:00 PM AMBULATORY [facility] MEDICINE [facility] Feb 03, 2024 03:30 PM AMBULATORY - MEDICINE [facility] Mar 01, 2024 11:00 AM [facility]AT[facility]ICINE [facility] [place] [facility] Apr 06, 2024 10:00 AM AMBULATORY [facility] PS[facility]ATRY [facility] [place] [facility] Apr 10, 2024 09:00 AM [facility] May 15, 2024 09:00 AM AMBUL[facility]ORY [facility]RY [facility] [place] [facility] May 15, 2024 10:30 AM AM[facility]ULATORY [facility] MEDICINE [facility] [place] [facility] May 28, 2024 10:30 AM AMBULATORY - MEDICINE [facility] [place] [facility] Active, Pending, and Scheduled Orders This section includes a listing of several types of active, pending, and scheduled orders, including clinic medications orders, diagnostic test orders, procedure orders and consult orders; where the start date of the order is 45 days before the date of the Encounter or 45 days after the date of theEncounter. The data comes from all [place] treatment facilities. Test Date/Time Test Type Test Details Facility Name Jan 13, 2024 01:37 PM Consult Order [facility] Cons Shot Peen Operator's Choice [facility] [place] [facility] Lab Results: +/- 30 days of the encounter This section includes the Chemistry and Hematology Lab Results on record with [place] for the patient. Radiology Reports and Pathology Reports are provided separately, in subsequent sections. Lab Results This section contains the Chemistry/Hematology Results that were resulted 30 days before or 30 daysafter the date of the Encounter. Date/Time Source Result Type Result - Unit Interpretation Reference Range Comment Jan 06, 2024 10:11 AM [facility] MICROALBUMIN CREATININE RATIO PANEL Spe cimen Type: URINE No comment entered. Ordering Provider: BOY DELONG Report Released Date/Time: Nov 23, 2023 08:33 AM Reporting Lab: [address] [address] Performing Lab: [address] [address] MICROALBUMIN/C REATININE RATIO 13.8 mg/g 0-29.9 MICROALBUMIN,Q UANTITATIVE 2.5 mg/dL RR UNAVAIL CREATININE URINE 180.82 mg/dL Jan 06, 2024 10:11 AM [facility] URINALYSIS Specimen Type: URINE Comment: If Glucose = >500 and Ketones are positive, please alert the Physician. Ordering Provider: BOY DELONG Report Released Date/Time: Nov 23, 2023 08:33 AM Reporting Lab: [address] [address] Performing Lab: [address] [address] UA COLOR Light-Yellow Yellow UA APPEARANCE Clear Clear UA GLUCOSE Normal mg/dL Negative UA KETONES NEGATIVE mg/dL Negative UA BLOOD NEGATIVE mg/dL Negative UA PROTEIN 10 mg/dL Negative UA NITRITE NEGATIVE mg/dL Negative UA BILIRUBIN NEGATIVE mg/dL Negative UA SPECIFIC GRAVITY 1.024 H 1.016-1.022 UA pH 5.5 5.0-9.0 UA UROBILINOGEN Normal mg/dL <2.0 UA LEUKOCYTE NEGATIVE Negative Jan 06, 2024 09:55 AM [facility] URIC ACID Specimen Type: SERUM No comment entered. Ordering Provider: BOY DELONG Report Released Date/Time: Nov 23, 2023 08:33 AM Reporting Lab: [address] [address] Performing Lab: [address] [address] URIC ACID 5.7 mg/dL 3.5-7.2 Jan 06, 2024 09:55 AM [facility] BASIC METABOLIC PANEL (fasting) Specime n Type: SERUM No comment entered. Ordering Provider: BOY DELONG Report Released Date/Time: Nov 23, 2023 08:33 AM Reporting Lab: [facility] [address] [address] Performing Lab: [facility] [address] [address] UREA NITROGEN 18 mg/dL 7-25 GLUCOSE 108 mg/dL H 65-100 SODIUM 140 mmol/L 135-145 POTASSIUM 3.9 mmol/L 3.5-5.0 CHLORIDE 111 mmol/L H 100-110 CO2 21 meq/L 20-30 CREATININE, Serum 1.13 mg/dL 0.50-1.40 eGFR(CKD-EPI 2020) 74 mL/min >60 Jan 06, 2024 09:55 AM [facility] CALCIUM Specimen Type: SERUM No comment entered. Ordering Provider: BOY DELONG Report Released Date/Time: Nov 23, 2023 08:33 AM Reporting Lab: [facility] [address] [address] Performing Lab: [address] [address] CALCIUM 9.0 mg/dL 8.5-10.2 Jan 06, 2024 09:55 AM [facility] LIVER FUNCTION Specimen Type: SERUM No comment entered. Ordering Provider: BOY DELONG Report Released Date/Time: Nov 23, 2023 08:33 AM Reporting Lab: [facility] [address] [address] Performing Lab: [address] [address] PROTEIN,TOTAL 6.8 g/dL 6.0-8.3 ALBUMIN 3.9 g/dL 3.5-5.0 ALKALINE PHOSPHATASE 66 U/L 40-150 AST 21 U/L 5-34 ALT 34 U/L BILIRUBIN, TOTAL 0.4 mg/dL 0.2-1.2 Jan 06, 2024 09:55 AM [facility] LIPID PANEL FASTING Specimen Type: SERUM No comment entered. Ordering Provider: BOY DELONG Report Released Date/Time: Nov 23, 2023 08:33 AM Reporting Lab: [address] [address] Performing Lab: [address] [address] CHOLESTEROL 168 mg/dL TRIGLYCERIDE 70 mg/dL 0-150 LDL calculated 115 mg/dL 0-129 CHOL/HDL 4.3 HDL CHOLESTEROL 39 mg/dL L 40-60 Jan 06, 2024 09:55 AM [facility] VITAMIN D (25-OH) Specimen Type: SERUM No comment entered. Ordering Provider: BOY DELONG Report Released Date/Time: Nov 23, 2023 08:33 AM Reporting Lab: [facility] [place] [facility] [address] [address] Performing [facility]: [facility] [address] [address] VITAMIN D (25-OH) 23 ng/mL 20-50 Jan 06, 2024 09:55 AM [facility] FERRITIN Specimen Type: SERUM No comment entered. Ordering Provider: BOY DELONG Report Released Date/Time: Nov 23, 2023 08:33 AM Reporting [facility]: [facility] [address] Performing Lab: [facility] [address] [address] FERRITIN 214 ng/mL 20-300 Jan 06, 2024 09:55 AM [facility] VITAMIN B12 Specimen Type: SERUM No comment entered. Ordering Provider: BOY DELONG Report Released Date/Time: Nov 23, 2023 08:33 AM Reporting Lab: [facility] [address] [address] Performing [facility]: [facility] [address] [address] VITAMIN B12 636 pg/mL 200-900 Jan 06, 2024 09:55 AM [facility] PSA Specimen Type: SERUM No comment entered. Ordering Provider: BOY DELONG Report Released Date/Time: Nov 23, 2023 08:33 AM Reporting Lab: [facility] [place] [address] [address] Performing Lab: [facility] [address] [address] PSA 1.09 ng/mL 0.00-4.00 Jan 06, 2024 09:55 AM [facility] CBC AND DIFF (AUTO) Specimen Type: BLOOD No comment entered. Ordering Provider: BOY DELONG Report Released Date/Time: Nov 23, 2023 08:33 AM Reporting Lab: [facility] [address] [address] Performing Lab: [facility] [address] [address] WBC 3.76 10*3/uL L 4.50-11.00 RBC 5.35 [...] 10*3/uL 0.00-0.00 Jan 06, 2024 09:55 AM [facility] HEMOGLOBIN A1C PANEL Specimen Type: BLOOD Comment: [...] Nov 23, 2023 08:33 AM Reporting Lab: [address] [address] Performing Lab: [address] [address] HEMOGLOBIN A1C 5.5 4.0-5.6 Jan 06, 2024 09:55 AM [facility] TSH Specimen Type: SERUM No comment entered. Ordering Provider: BOY DELONG Report Released Date/Time: Nov 23, 2023 08:33 AM Reporting Lab: [address] [address] Performing Lab: [address] [address] TSH 3.01 u[IU]/mL 0.35-5.00 Radiology Reports: +/- [...] AM KNEE 3 VIEWS (LEFT): LUPILLO HONG [id number] -1960 M Ex Date: JAN 10, 2024@11:27 Req Phys: BOY DELONG Loc: CWM/SO/PACT 3 WH (Req'g Loc) Im Loc: [facility] 1 Service: [place] [address] (Case [id number] COMPLETE) KNEE 3 VIEWS (LEFT) (RAD Detailed) CPT:27081 Reason for Study: left knee pain Clinical History: any OA or joint erosions? did have gout L knee Report Status: Verified Date Reported: JAN 10, 2024 Date Verified: JAN 10, 2024 Border Measurer E-Sig: Report: KNEE 3 VIEWS (LEFT) COMPARISON: [...] the right knee demonstrates severe medial and [id number] lateral tibiofemoral compartment joint degeneration, similar to [...] to prior. READING PHYSICIAN: Karon Blount M.D. -[id number] 01/10/2024 11:58 EST [facility] National Teleradiology Program [phone] (For Medical Practitioner Use Only) Attention Patients / Veterans: If you have questions or concerns about these test results, please contact your ordering provider or primary care team. Primary Diagnostic Code: NO ALERT REQUIRED Primary Interpreting Staff: RADIOLOGY,OUTSIDE SERVICE, Staff Physician / RADIOLOGY,OUTSIDE SERVICE [facility] Jan 10, 2024 11:[address] MAXILLOFACIAL W/O CONT: LUPILLO HONG [id number] -1960 M Ex Date: JAN 10, 2024@11:15 Req Phys: BOY DELONG Loc: CWM/SO/PACT 3 WH (Req'g Loc) Img Loc: [facility]/CT Service: [place] [address] (Case [id number] COMPLETE) CT MAXILLOFACIAL W/O CONT (CT Detailed) CPT:26178 Reason for Study: post nasal drip Clinical History: always cleasring thraot Report Status: Verified Date Reported: JAN 10, 2024 Date Verified: JAN 10, 2024 Border Measurer E-Sig: Report: MAXILLOFACIAL CT WITHOUT IV CONTRAST/CT OF THE PARANASAL SINUSES WITHOUT IV CONTRAST: INDICATION: Post nasal drip. Patient reportedly always clearing throat. TECHNIQUE: Volumetric CT acquisition through the maxillofacial structures/paranasal sinuses, with axial, coronal and sagittal reformats, was performed at the local [place] facility. 159 images were received by the [place] National GoChongoradiology Program (NTP) for interpretation. RADIATION DOSE (mGy*cm): [...] commentary as above. READING PHYSICIAN: Boy Sun -[phone] 01/10/2024 16:06 [facility] National Teleradiology Program [phone] (For Medical Practitioner Use Only) Attention Patients / Veterans: If you have questions or concerns about these test results, please contact your ordering provider or primary care team. Primary Diagnostic Code: NO ALERT REQUIRED Primary Interpreting Staff: RADIOLOGY,OUTSIDE SERVICE, Staff Physician / RADIOLOGY,OUTSIDE SERVICE [facility] Jan 10, 2024 11:[address] THORAX W/O CONT: JORDAN HONGL SMILEY [id number] -1960 M Exm Date: JAN 10, 2024@11:15 Req Phys: BOY DELONG Loc: CWM/SO/PACT 3 WH (Req'g Loc) Img Loc: [place] Service: [place] [address] (Case [id number] COMPLETE) CT THORAX W/O CONT (CT Detailed) CPT:13472 Reason for Study: chest tightness Clinical History: post nasal drip coughing echo and ekg of heart neg for cardiac pathology back in may 2023 any signs interstitial lung disease? Report Status: Verified Date Reported: JAN 10, 2024 Date Verified: JAN 10, 2024 Border Measurer E-Sig: Report: CT OF THE CHEST WITHOUT IV CONTRAST INDICATION: Chest tightness, post nasal drip, coughing. Assess for signs of interstitial lung disease. TECHNIQUE: Volumetric CT acquisition through the chest, with axial, coronal and sagittal reformats, was performed at the local [place] facility. 1194 images were received by the [place] National Teleradiology Program (NTP) for interpretation. RADIATION [...] as detailed above. READING PHYSICIAN: Boy Sun -[phone] 01/10/2024 17:01 EST [facility] National Teleradiology Program [phone] (For Medical Practitioner Use Only) Attention Patients / Veterans: If you have questions or concerns about these test results, please contact your ordering provider or primary care team. Primary Diagnostic Code: SIGNIFICANT ABNORMALITY, ATTN NEEDED Primary Interpreting Staff: RADIOLOGY,OUTSIDE SERVICE, Staff Physician / RADIOLOGY,OUTSIDE SERVICE [facility] Encounter Notes: All associated encounter notes This section contains the clinical notes associated to the Encounter. Date/Time Encounter Note(s) Provider Source Dec 26, 2023 06:56 PM PHARMACY NOTE: LOCAL TITLE: PHARMACY CUSTOMER CARE MEDICATION RENEWAL STANDARD TITLE: PHARMACY NOTE DATE OF NOTE: DEC 26, 2023@18:56 ENTRY DATE: DEC 26, 2023@18:56:59 AUTHOR: JAMES NUNO EXP COSIGNER: URGENCY: STATUS: COMPLETED Date: Dec Division: [facility] referred by Pharmacy Call Center for medication renewal: Non-controlled/maintenance medication Medications requested: [id number] COLCHICINE 0.6MG TAB Defer to primary care provider To be mailed . Please review and renew if appropriate. *This note was generated by [facility]/CT Pharmacy Customer Care. If you have any questions or need assistance, do not contact this author. Please refer all questions to your local, on-site pharmacy departments. /ivone/ JAMES NUNO CPhT Insurance Verification Specialist, [place]/Pharmacy Customer Care Signed: 12/26/2023 18:57 Receipt Acknowledged By: 12/27/2023 08:25 /es/ BOY DELONG PA-C STAFF PHYSICIAN FRUIT [employer]KER 12/27/2023 08:15 /es/ Imelda Lutz, RN Registered Nurse (RN) JAMES NUNO [facility]
--- OUTSIDE RECORDS SUMMARY | 2024-06-06 08:11 | XMS_ITS ---
Author Name [place] Organization [place] Address [address] [place] [address] Care Team Providers Care Director Religious Education Name Role Phone BOY DELONG Primary Care [...] RX PRESCRIPT ION HEALT H NEW ENGL [facility] Mar 07, 2020 [facility] [id number] MARGARETH HONG RRYL PATIENT Selected Encounter This section includes the information on record at [place] for the Encounter. Date/Time Encounter Type Encounter Description Reason Pro vider Source Oct 14, 2023 09:30 AM Outpatient Encounter [facility] Encounter Template Text not used by [place] Plan of Treatment: Future Appointments (+ 6 [...] AMBULATORY - [facility]AT[facility] [place] [facility] Nov 11, 2023 11:00 AM AMBULATORY - PS[facility]IATRY [facility] [place] [facility] Nov 14, 2023 03:00 PM [facility]ULATORY [facility] MEDICINE [facility] [place] [facility] Nov 17, 2023 08:00 AM [facility] [place] [facility] Jan 06, 2024 10:00 AM AMBULATORY - MEDICINE [facility] Jan 10, 2024 11:15 AM AMBULATORY - NONE [facility] [place] [facility] Jan 10, 2024 11:30 AM AMBULATORY - NONE [facility] [place] [facility] Jan 13, 2024 10:00 AM AMBULATORY - PS[facility]CHIATRY [facility] [place] [facility] Jan 13, 2024 01:00 PM AM[facility]UL[facility] MEDICINE [facility] [place] [facility] Feb 03, 2024 03:30 PM AMBULATORY - MEDICINE [facility] Mar 01, 2024 11:00 AM [facility]ICINE [facility] [place] [facility] Apr 06, 2024 10:00 AM AMBULATORY - PS[facility]CHIATRY [facility] [place] [facility] Apr 10, 2024 09:00 AM AMBULATORY - PS[facility]IATRY [facility] [place] [facility] Encounter Notes: All associated encounter notes This section contains the clinical notes associated to the Encounter. Date/Time Encounter Note(s) Provider Source Oct 14, 2023 09:57 AM CLERICAL NOTE: LOCAL TITLE: APPOINTMENT NO SHOW STANDARD TITLE: CLERICAL NOTE DATE OF NOTE: OCT 14, 2023@09:57 ENTRY DATE: OCT 14, 2023@09:57:08 AUTHOR: DIEUDONNE MEEHAN COSIGNER: URGENCY: STATUS: COMPLETED Patient Name: LUPILLO HONG Patient SSN: [id number] Date and time of Appointment No show [...] 01/06/2024 10:00 CWM/SO/PACT 3 WH /es/ Dieudonne Meehan, PharmD Clinical Pharmacist Practitioner Signed: 10/14/2023 09:57 DIEUDONNE MEEHAN [place] [facility]
--- OUTSIDE RECORDS SUMMARY | 2024-06-06 08:12 | XMS_ITS ---
Author Name [place] Address [address] [place] [address] Care Team Providers Care Community Music Therapist Name Role Phone BOY DELONG Primary Care [...] OPTUM RX PRESCRIPT ION HEALT H [facility] Mar 07, 2020 [facility] [id number] MARGARETH HONG RRYL PATIENT Selected Encounter This section includes the information on record at [place] for the Encounter. Date/Time Encounter Type Encounter Description Reason Provider Source May 15, 2024 09:00 AM MTMS BY PHARM ADDL 15 MIN [facility] CLINIC - IND ICD-10-CM F32.1 Major depressive disorder, single episode, moderate PRETTY MEEHAN Rosibel Encounter Template Text not used by [place] Assessments - Encounter Diagnoses This section includes the primary and secondary diagnoses documented for the Encounter. Date/Time Primary/Secondary Diagnosis Diagnosis Name Provider Source May 15, 2024 09:24 AM PRIMARY Major depressive disorder, single episode, moderate PRETTY MEEHAN [facility] Plan of Treatment: Future Appointments (+ 6 months) and Future Tests (+/- 45 days) The Plan of Treatment section includes future care activities for the patient from all [place] [facility]. This section includes future appointments and future orders which are active, pending or scheduled. Future Appointments This section includes appointments that were scheduled to occur 6 months from the date of the Encounter, up to a maximum of 20 appointments. The data comes from all [place] treatment facilities. Appointment Date/Time Appointment Type Appointme nt Facility Name May 28, 2024 10:30 AM AMBULATORY [facility] July 10, 2024 10:00 AM AMBULATORY - PSYCHIATRY [facility] Active, Pending, and Scheduled Orders This section includes a listing of several types of active, pending, and scheduled orders, including clinic medications orders, diagnostic test orders, procedure orders and consult orders; where the start date of the order is 45 days before the date of the Encounter or 45 days after the date of theEncounter. The data comes from all [facility]. Test Date/Time Test Type Test Details Facility Name Apr 10, 2024 09:42 AM Consult Order PSYCHOTHER APY BHIP/NHM OUTPT Cons Pulmonary Physician's Choice [facility] Encounter Notes: All associated encounter notes This section contains the clinical notes associated to the Encounter. Date/Time Encounter Note(s) Provider Source May 15, 2024 09:03 AM PHARMACY MEDICATION MGT NOTE: LOCAL TITLE: CLINICAL PHARMACIST F/U NOTE STANDARD TITLE: PHARMACY MEDICATION MGT NOTE DATE OF NOTE: MAY 15, 2024@09:03 ENTRY DATE: MAY 15, 2024@09:03:16 AUTHOR: DIEUDONNE MEEHAN COSIGNER: URGENCY: STATUS: COMPLETED VA Video Connect (VVC) Standard Documentation VVC Clinician Resources Only: E911 (Emergency Call Relay Center): [phone] National Veterans Crisis Line - 988 then press #1. PH[place] Suicide Coordinator [phone], Ext. [phone]; Back-up Ext. [phone] PHIL Mejias Leeds [phone] Introduction: Visit is being conducted by [place] [employer]. [place] identified with 2 identifiers: [X] Full Name [X] Date of [ ] VA ID Card Emergency Plan: [place] confirmed and/or provided the following information in case of emergency or technology failure. PATIENT PHONE - PHONE NUMBER [CELLULAR] - NONE FOUND Is patient phone number correct, if not, enter below: [place]'s phone number: LUPILLO HONG [address], [place], [address] [place]'s present location and address for appointment: at home [place]'s emergency contact name and phone number: on file [place] reported that location is private and safe: Yes Informed Consent: informed of the risks and benefits of Telehealth video care. [place] has the right to refuse video services. If refuses video visit, a [id number]-hi-hzpg visit will be scheduled. [place] verbalized consent for this video visit: Yes [...] -=-=-=-=-=-=-=-=-=-=-=-=-=-=- =-=-=-=-=-==-=-=-=-=-=-=-=-=- =-=-=-=-=-=Subjective- was last seen on [id number] with the following pharmacotherapeutic plan: [ ] No changes [ ] Discontinue: [ ] Initiate: [X] Change the following: increase sertraline to 100mg daily Treating Dx(s): MDD INTERIM HISTORY pt reports to be well. expressed that he has been status quo since last seeing this insurance underwriter sales, but expressed feeling better than prior to the change. mentions that he is still processing the recent loss of his cousin, but that he is doing okay. medications reviewed. denies any new side effects. agreed to continue the current regimen. appt ended briefly as pt reports neeing to transport his mother to an appt. disclosed no other issues or concerns at this time. -=-=-=-=-=-=-=-=-=-=-=-=-=-=- =-=-=-=-=-==-=-=-=-=-=-=-=-=- =-=-=-=-=-=-Objective- Mental Status Exam Appearance: [...] List is the source for the followin. Sciatica 2. Chronic cough 3. Gout 4. Housing insecurity 5. Femoral acetabular impingement 6. Abdominal hernia 7. Ambulatory ECG normal 8. Pain in right hip joint 9. Acute bronchitis 10. Low back pain 11. Foot pain 12. Hyperglycemia 13. Benign hypertension 14. Multiple renal cysts 15. Screening for malignant neoplasm of colon done 16. Pain of bilateral knee regions 17. Nocturia 18. Dyspnea ALLERGIES: Patient has answered NKA Active Outpatient Medications (including Supplies): Active Outpatient Medications Status 1) ALBUTEROL 90MCG (CFC-F) 200D ORAL INHL INHALE 1 PUFF BY ACTIVE MOUTH ONCE DAILY NEEDED Indication: FOR BRONCHOSPASM 2) AMLODIPINE BESYLATE 10MG TAB TAKE ONE TABLET BY MOUTH ONCE ACTIVE DAILY FOR BLOOD PRESSURE/HEART, DO NOT TAKE WITH GRAPEFRUIT JUICE 3) CELECOXIB 200MG CAP TAKE ONE CAPSULE BY MOUTH TWICE DAILY ACTIVE NEEDED Indication: FOR RHEUMATOID ARTHRITIS 4) CETIRIZINE HCL 10MG TAB TAKE TWO TABLETS BY MOUTH ONCE DAILY ACTIVE Indication: FOR ALLERGIES 5) COLCHICINE 0.6MG TAB TAKE 2 TABLETS AT ONSET BY MOUTH ONE ACTIVE TIME AND TAKE 1 TABLET ONE HOUR LATER ONE TIME FOR GOUT [MAY ONLY REPEAT COURSE ONCE EVERY TWO WEEKS][TOTAL OF TWO COURSES IN 30 DAYS][6 TABLETS PER 30 DAYS] Indication: TO PREVENT GOUT 6) DOXEPIN 3MG TAB TAKE ONE TABLET BY MOUTH AT BEDTIME ACTIVE NEEDED FOR INSOMNIA Indication: FOR CHRONIC TROUBLE SLEEPING 7) HYALURONATE NA (DUROLANE)20MG/ML SYR 3ML INJECT 60MG ACTIVE INTRA-ARTICULAR ONE TIME Indication: OSTEOARTHRITIS OF THE KNEE 8) HYDROCHLOROTHIAZIDE 25MG TAB TAKE ONE-HALF TABLET BY MOUTH ACTIVE ONCE DAILY Indication: FOR HIGH BLOOD PRESSURE 9) MULTIVITAMIN CAP/TAB TAKE 1 TABLET BY MOUTH ONCE DAILY ACTIVE Indication: FOR VITAMIN SUPPLEMENTATION 10) SERTRALINE HCL 100MG TAB TAKE ONE TABLET BY MOUTH ONCE DAILY HOLD Indication: FOR MAJOR DEPRESSIVE DISORDER 11) SILDENAFIL CITRATE 100MG TAB TAKE ONE TABLET BY MOUTH ACTIVE DIRECTED TAKE 1 HOUR PRIOR TO SEXUAL ACTIVITY TRY ONE HALF PILL; IF ONE HALF DOES NOT WORK THEN MAY TAKE ONE WHOLE TABLET NEXT TIME; NEVER TAKE MORE THAN ONE TABLET AT ONE TIME Indication: FOR ERECTILE DYSFUNCTION Past psychiatric medications include the following: [X] Per CPRS: - sertraline (2023-current) - doxepin (2023-current) [ ] Per Patient: Vitals: Ht: 72 in [182.9 cm] (02/03/2024 15:58) Wt: 245.6 lb [111.40 kg] (02/03/2024 15:58) BMI: 33.4 BP: 130/88 (02/03/2024 15:58) HR: 78 (02/03/2024 15:58) Labs: CHEM 7 TREND LAB CUMULATIVE SELECTED [...] following review of all active psychotropic and DIRECTOR HEART-active agents is to ensure pharmacotherapy is evaluated for safety and efficacy as they relate to behaviorial and physiological changes and outcomes Pt is stable on the following regimen and requires no changes at this time. MDD - sertraline 100mg daily - doxepin 3mg hs prn for sleep PLAN 1. Pharmacotherapy [X] No changes [ ] Discontinue: [ ] Initiate: [ ] Change the followin. Labs/tests: n/a 3. Consult(s) or Coordination of care: psychotherapy consult pending 4. Other: n/a Education was provided to [...] Reduction [ ] Other: RTC Interval: every 6-8weeks Next Apt: tbd was provided insurance underwriter sales's contact information and instructed to contact insurance underwriter sales as needed for any changes to scheduling or concerns otherwise. [place] is aware of actions to take if they feel unsafe, including calling the [place]'s Crisis Line (#215); calling 911; or going to the nearest urgent care or emergency room. The is also aware of how to contact the clinic should the require additional services prior to the next appointment. Time spent on chart review, session, and documentation: 30minutes /es/ Dieudonne Meehan PharmD Clinical Pharmacist Practitioner Signed: 05/16/2024 10:45 DIEUDONNE MEEHAN [place] [facility]
--- OUTSIDE RECORDS SUMMARY | 2024-06-06 08:12 | XMS_ITS | Encounter Summary ---
Author Name [facility] [place] Address [address] [place] [address] Care Team Providers Care Casting Associate Name Role Phone DELONGBOY Primary Care Provider [...] RX PRESCRIPT ION HEALT H [facility] Mar 07, 2020 [facility] [id number] MARGARETH MONROE RRYL PATIENT Selected Encounter This section includes the information on record at [place] for the Encounter. Date/Time Encounter Type Encounter Description Reason Provider Source July 22, 2023 01:00 PM PSYCH DIAGNOSTIC EVALUATION MENTAL [facility] - IND ICD-10-CM F32.1 Major depressive disorder, single episode, moderate LJ ASHLEY Rosibel Encounter Template Text not used by [place] [...] 03, 2023 08:00 AM AMBULATORY - REHAB [facility] August 05, 2023 09:00 AM AMBULATORY - PSYCHIATRY [place] [facility] [place] [facility] August 05, 2023 03:00 PM AMBULATORY - PSYCHIATRY [facility] [place] [facility] Aug 11, 2023 10:40 AM AMBULATORY - MEDICINE [place] [facility] [place] [facility] Aug 19, 2023 10:00 AM AMBULATORY - REHAB [facility] Sep 09, 2023 09:30 AM AMBULATORY - PSYCHIATRY [facility] [place] [facility] Oct 14, 2023 09:30 AM AMBULATORY - PSYCHIATRY [facility] [place] [facility] Oct 28, 2023 10:00 AM AMBULATORY - PSYCHIATRY [facility] [place] [facility] Nov 11, 2023 11:00 AM AMBULATORY - PSYCHIATRY [facility] [place] [facility] Nov 14, 2023 03:00 PM AMBULATORY - MEDICINE [place] [facility] [place] [facility] Nov 17, 2023 08:00 AM AMBULATORY - MEDICINE [place] [facility] [place] [facility] Jan 06, 2024 10:00 AM AMBULATORY - MEDICINE [facility] Jan 10, 2024 11:15 AM AMBULATORY - NONE [place] [facility] [place] [facility] Jan 10, 2024 11:30 AM AMBULATORY - NONE [facility] [place] [facility] Jan 13, 2024 10:00 AM AMBULATORY - PSYCHIATRY [facility] [place] [facility] Jan 13, 2024 01:00 PM AMBULATORY - MEDICINE [place] [facility] [place] [facility] Social History: Smoking Status (Most current) [...] 10, 2023 11:30 AM VA-TOBACCO NEVER USED [facility] Tobacco Use History This section includes a history of the smoking, or tobacco-related health factors, that were collected on or before the date of the Encounter. The data comes from the [place] facility where the Encounter took place. Date/Time Smoking Status/Tobacco Use Comment F acility May 14, 2022 11:30 AM [place]-TOBACCO NEVER USED [facility] Mar 27, 2021 11:00 AM [place]-TOBACCO NEVER USED [facility] Radiology Reports: +/- 30 days of the [...] 2023 10:59 AM ABDOMINAL ULTRASOUND: LUPILLO MONROE [id number] -1960 M Exm Date: JUN 24, 2023@10:59 Req Phys: BOY DELONG Loc: CWM/SO/PACT 3 WH (Req'g Loc) Img Loc: ULTRASOUND Service: Unknown (Case [id number] COMPLETE) [facility] ABDOMEN 2 Minutes (US Detailed) CPT:43568 Reason for Study: umbilical hernia Clinical History: need views before seeing karen trujillo Report Status: Verified Date Reported: JUN 25, 2023 Date Verified: JUN 25, 2023 Heater Room Helper E-Sig: Report: [facility] ABDOMEN 2 Minutes [PRINTSET] Clinical History: Umbilical hernia. Comparison: None [...] containing hernia. READING PHYSICIAN: Mikhail Andrews MD -[id number] 06/24/2023 23:15 PDT [facility] National Teleradiology Program [phone] (For Medical Practitioner Use Only) Attention Patients / Veterans: If you have questions or concerns about these test results, please contact your ordering provider or primary care team. Primary Diagnostic Code: NO ALERT REQUIRED Primary Interpreting Staff: RADIOLOGY,OUTSIDE SERVICE, Staff Physician / RADIOLOGY,OUTSIDE SERVICE [place] [facility] [place] [facility] Encounter Notes: All associated encounter notes This section contains the clinical notes associated to the Encounter. Date/Time Encounter Note(s) Provider Source July 22, 2023 01:26 PM PSYCHOLOGY NOTE: LOCAL TITLE: PSYCHOLOGY NOTE STANDARD TITLE: PSYCHOLOGY NOTE DATE OF NOTE: JULY 22, 2023@13:26 ENTRY DATE: JULY 22, 2023@13:26:58 AUTHOR: LJ ASHLEY COSIGNER: URGENCY: STATUS: COMPLETED Suicide Screen: C-SSRS Screening Craig-Suicide Severity Rating Scale (C-SSRS Screener) 1. Over [...] By: 08/08/2023 17:31 /es/ JOSIAS CARDONA Suicide Qa Internship LJ ASHLEY [facility] July 22, 2023 12:59 PM MENTAL HEALTH CONS ULT: LOCAL TITLE: CONSULT REPORT/UNIFORM OUTPATIENT MENTAL HEALTH ASS STANDARD TITLE: MENTAL HEALTH CONSULT DATE OF NOTE: JULY 22, 2023@12:59 ENTRY DATE: JULY 22, 2023@12:59:34 AUTHOR: LJ ASHLEY EXP COSIGNER: URGENCY: STATUS: COMPLETED VA GRAVIDI (VVC) Standard Documentation VVC Clinician Resources Only: E911 (Emergency Call Relay Center): [phone] National Veterans Crisis Line - 988 then press #1. [facility] Suicide Coordinator [phone], Ext. [phone]; Back-up Ext. [phone] [place] PHIL [place] [phone] Introduction: Visit is being conducted by Kasumi-sou. identified with 2 identifiers: [X] Full Name [X] Date of [ ] VA ID Card Emergency Plan: [place] confirmed and/or provided the following information in case of emergency or technology failure. PATIENT PHONE - PHONE NUMBER [CELLULAR] - NONE FOUND Is patient phone number correct, if not, enter below: 's phone number: LUPILLO MONROE [address], [place], [address] 's present location and address for appointment: Home [place]'s emergency contact name and phone number: see chart reported that location is private and safe: Yes Informed Consent: informed of the risks and benefits of Telehealth video care. [place] has the right to refuse video services. If refuses video visit, a jrvg-it-[id number] visit will be scheduled. verbalized consent for [...] court of law and presented to a nursery school teacher), and [facility] access for active duty service members. Provided Suicide Prevention Hotline number, and other contact numbers as necessary. Uniform Outpatient Mental Health Assessment I. IDENTIFYING INFORMATION: LUPILLO MONROE Oct [phone] SERVICE CONNECTED % - 10 MARITAL STATUS - NEVER Referral source: Dot Goetz Present at time of intake: [X] Family member [ ] Supportive person(s) Name: Language Preference:Cambodian Language Spoken:Cambodian II. PRESENTING SITUATION: A. What brings you [...] ] No [X] If yes, please identify [place]'s primary and secondary substances of choice: ALCOHOL [...] level: Regarding the motivation for treatment, estimate [place]'s stage of change with respect to this [...] level: Regarding the motivation for treatment, estimate [place]'s stage of change with respect to this substance: Which withdrawl symptoms have you had when you tried to stop using substance? IV: PERSONAL HISTORY/INFORMATION: A. Biological/Social History (including: relevant developmental history, family of origin, sexual/physical/emotional traumas, cultural factors, applicable sexual history): He related that he was born in [place], [place] and raised primarily in [place], [place]. He stated that he was raised by his mother. He reported that he has a younger brother. He denied any history of sexual/physical/emotional abuse. He indicated that he has never been . He stated that he has 3 daughters. B. History (including actual duties, combat/war zone duty, trauma exposure, exposure to environmental contaminants): He related that he served in the [employer] from [id number]. 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 What is your level of mormon or spiritual fulfillment: I'm Restorationist L. How do you culturally identify? Can [...] AND IMPRESSIONS: Mr. Monroe is a 62-year-old tarpipe who was referred to the clinic by Dot Goetz. It is likely that he meets criteria for Major Depressive Disorder at this time. [place] stated that he was interested in individual [...] the consults will be placed. C: Recommendations: [place] would benefit from psychotherapy to obtain support and coping skills (e.g., CBT interventions; behavioral activation; cognitive restructuring/reframing; mindfulness/relaxation exercises). /ivone/ LJ ASHLEY PSYD Clinical Psychologist Signed: 07/22/2023 13:54 LJ ASHLEY
--- OUTSIDE RECORDS SUMMARY | 2024-06-06 08:12 | XMS_ITS ---
Author Name [place] Address [address] [place] [address] Care Team Providers Care Grave Cleaner Name Role Phone BOY DELONG Primary Care [...] PRESCRIPT ION HEALT H [facility] Mar 07, 2020 [facility] [id number] MARGARETH HONG RRYL PATIENT Selected Encounter [...] depressive disorder, single episode, moderate PRETTY MEEHAN [facility] Plan of Treatment: Future Appointments (+ 6 months) and Future Tests (+/- 45 days) The Plan of Treatment section includes future care activities for the patient from all [place] [facility]. This section includes future appointments [...] - MEDICINE [place] [facility] [facility] Nov 17, 2023 08:00 AM AMBULATORY - MEDICINE [place] [facility] [facility] Jan 06, 2024 10:00 AM AMBULATORY - MEDICINE [facility] Jan 10, 2024 11:15 AM AMBULATORY - NONE [place] [facility] [facility] Jan 10, 2024 11:30 AM AMBULATORY - NONE [place] [facility] [place] [facility] Jan 13, 2024 10:00 AM AMBULATORY - PSYCHIATRY [place] [facility] [place] [facility] Jan 13, 2024 01:00 PM AMBULATORY - MEDICINE [place] [facility] [facility] Feb 03, 2024 03:30 PM AMBULATORY - MEDICINE [facility] Mar 01, 2024 11:00 AM AMBULATORY - MEDICINE [place] [facility] [facility] Encounter Notes: All associated [...] Resources Only: E911 (Emergency Call Relay Center): [phone] National Veterans Crisis Line - 988 then press #1. PHIL Suicide Coordinator [phone], Ext. [phone]; Back-up Ext. [phone] [place] Police, [place] VILLARREAL [phone] Introduction: Visit is being conducted by [place] [employer]. identified with 2 identifiers: [X] Full Name [X] Date of [ ] VA ID Card Emergency Plan: confirmed and/or provided the following information in case of emergency or technology failure. PATIENT PHONE - PHONE NUMBER [CELLULAR] - NONE FOUND Is patient phone number correct, if not, enter below: 's phone number: LUPILLO HONG [address], [place], [address] 's present location and address for appointment: at home [place]'s emergency contact name and phone number: on file [place] reported that location is private and safe: Yes Informed Consent: [place] informed of the risks and benefits of Telehealth video care. has the right to refuse video services. If refuses video visit, a [id number]-lr-[id number] visit will be scheduled. [place] verbalized consent for this video visit: Yes [...] 62yo BLACK OR MALE -=-=-=-=-=-=-=-=-=-=-=-=-=-=- =-=-=-=-=-==-=-=-=-=-=-=-=-=- =-=-=-=-=-=Subjective- [place] was last seen on [id number] with the [...] not feel rested; avg 4hrs Apetite: okay [place] reports the following regarding medications: -N--Y- [X][ [...] following review of all active psychotropic and PRODUCT DELIVERY SPECIALIST-active agents is to ensure pharmacotherapy is [...] Other: RTC Interval: every 4-6weeks Next Apt: [id number] was provided assembly instructions writer's contact information and instructed to contact assembly instructions writer as needed for any changes to scheduling or concerns otherwise. [place] is aware of actions to take if they feel unsafe, including calling the 's Crisis Line (#654); calling 911; or going to the nearest urgent care or emergency room. The is also aware of how to contact the clinic should the require additional services prior to the next appointment. Time spent on chart review, session, and documentation: 30minutes /es/ Dieudonne Meehan PharmD Clinical Pharmacist Practitioner Signed: 09/09/2023 11:28 D[facility]UD[facility] MEEHAN [facility]
--- OUTSIDE RECORDS SUMMARY | 2024-06-06 08:12 | XMS_ITS ---
Author Name [facility] [place] [facility] [place] [facility] [place] Address [address] [place] [address] Care Team Providers Care Senior Web Developer Name Role Phone BOY DELONG Primary Care [...] OPTUM RX PRESCRIPT ION [facility]ALT [facility] Mar 07, 2020 [facility] [id number] MARGARETH HONG RRYL PATIENT Selected Encounter [...] knee NNAMDI MCFADDEN [place] [facility] [place] [facility] Jan 13, 2024 01:46 PM SECONDARY Gout, unspecified NNAMDI [place] [facility] [place] [facility] Plan of Treatment: Future Appointments (+ 6 months) and Future Tests (+/- 45 days) The Plan of Treatment section includes future care activities for the patient [facility] [place] [facility] This section includes future appointments and future orders which are active, pending or scheduled. Future Appointments This section includes appointments that were scheduled to occur 6 months from the date of the Encounter, up to a maximum of 20 appointments. The data comes from all [facility]. Appointment Date/Time Appointment Type Appointme nt Facility Name Feb 03, 2024 03:30 PM AMBULATORY - MEDICINE [facility] Mar 01, 2024 11:00 AM AMBULATORY [facility] MEDICINE [facility] Apr 06, 2024 10:00 [facility] Apr 10, 2024 09:00 AM [facility] May 15, 2024 09:00 AM [facility] May 15, 2024 10:[address] [facility] N[facility]L [facility] May 28, 2024 10:[address] [facility] July 10, 2024 10:00 AM AMBULATORY PSYCHIATRY [facility] Active, Pending, and Scheduled Orders This section includes a listing of several types of active, pending, and scheduled orders, including clinic medications orders, diagnostic test orders, procedure orders and consult orders; where the start date of the order is 45 days before the date of the Encounter or 45 days after the date of theEncounter. The data comes from all [facility]. Test Date/Time Test Type Test Details Facility Name Jan 13, 2024 01:37 PM Consult Order [facility] [employer] [facility] Lab Results: +/- 30 days of [...] Range Comment Jan 06, 2024 10:11 AM [facility] MICROALBUMIN CREATININE RATIO PANEL Spe cimen Type: URINE No comment entered. Ordering Provider: BOY DELONG Report Released Date/Time: Nov 23, 2023 08:33 AM Reporting Lab: [address] [address] Performing Lab: [address] [address] MICROALBUMIN/C REATININE RATIO 13.8 mg/g 0-29.9 MICROALBUMIN,Q UANTITATIVE 2.5 mg/dL RR UNAVAIL CREATININE URINE 180.82 mg/dL Jan 06, 2024 10:11 AM [facility] URINALYSIS Specimen Type: URINE Comment: If Glucose = >500 and Ketones are positive, please alert the Physician. Ordering Provider: BOY DELONG Report Released Date/Time: Nov 23, 2023 08:33 AM Reporting Lab: [address] [address] Performing Lab: [address] [address] UA COLOR Light-Yellow Yellow UA APPEARANCE Clear Clear UA GLUCOSE Normal mg/dL Negative UA KETONES NEGATIVE mg/dL Negative UA BLOOD NEGATIVE mg/dL Negative UA PROTEIN 10 mg/dL Negative UA NITRITE NEGATIVE mg/dL Negative UA BILIRUBIN NEGATIVE mg/dL Negative UA SPECIFIC GRAVITY 1.024 H 1.016-1.022 UA pH 5.5 5.0-9.0 UA UROBILINOGEN Normal mg/dL <2.0 UA LEUKOCYTE NEGATIVE Negative Jan 06, 2024 09:55 AM [facility] URIC ACID Specimen Type: SERUM No comment entered. Ordering Provider: BOY DELONG Report Released Date/Time: Nov 23, 2023 08:33 AM Reporting Lab: [address] [address] Performing Lab: [address] [address] URIC ACID 5.7 mg/dL 3.5-7.2 Jan 06, 2024 09:55 AM [facility] BASIC METABOLIC PANEL (fasting) Specime n Type: SERUM No comment entered. Ordering Provider: BOY DELONG Report Released Date/Time: Nov 23, 2023 08:33 AM Reporting Lab: [facility] [address] [facility] [address] Performing Lab: [address] [address] UREA NITROGEN 18 mg/dL 7-25 GLUCOSE 108 mg/dL H 65-100 SODIUM 140 mmol/L 135-145 POTASSIUM 3.9 mmol/L 3.5-5.0 CHLORIDE 111 mmol/L H 100-110 CO2 21 meq/L 20-30 CREATININE, Serum 1.13 mg/dL 0.50-1.40 eGFR(CKD-EPI 2020) 74 mL/min >60 Jan 06, 2024 09:55 AM [facility] CALCIUM Specimen Type: SERUM No comment entered. Ordering Provider: BOY DELONG Report Released Date/Time: Nov 23, 2023 08:33 AM Reporting Lab: [address] [address] Performing Lab: [address] [address] CALCIUM 9.0 mg/dL 8.5-10.2 Jan 06, 2024 09:55 AM [facility] LIVER FUNCTION Specimen Type: SERUM No comment entered. Ordering Provider: BOY DELONG Report Released Date/Time: Nov 23, 2023 08:33 AM Reporting Lab: [address] [address] Performing Lab: [address] [address] PROTEIN,TOTAL 6.8 g/dL 6.0-8.3 ALBUMIN 3.9 g/dL 3.5-5.0 ALKALINE PHOSPHATASE 66 U/L 40-150 AST 21 U/L 5-34 ALT 34 U/L BILIRUBIN, TOTAL 0.4 mg/dL 0.2-1.2 Jan 06, 2024 09:55 AM [facility] LIPID PANEL FASTING Specimen Type: SERUM No comment entered. Ordering Provider: BOY DELONG Report Released Date/Time: Nov 23, 2023 08:33 AM Reporting Lab: [address] [address] Performing Lab: [place] [facility] [place] [facility] [address] [facility] [address] CHOLESTEROL 168 mg/dL TRIGLYCERIDE 70 mg/dL 0-150 LDL calculated 115 mg/dL 0-129 CHOL/HDL 4.3 HDL CHOLESTEROL 39 mg/dL L 40-60 Jan 06, 2024 09:55 AM [facility] VITAMIN D (25-OH) Specimen Type: SERUM No comment entered. Ordering Provider: BOY DELONG Report Released Date/Time: Nov 23, 2023 08:33 AM Reporting Lab: [place] [facility] [place] [facility] [address] [facility] [address] Performing Lab: [facility] [address] [facility] [address] VITAMIN D (25-OH) 23 ng/mL 20-50 Jan 06, 2024 09:55 AM [facility] FERRITIN Specimen Type: SERUM No comment entered. Ordering Provider: BOY DELONG Report Released Date/Time: Nov 23, 2023 08:33 AM Reporting Lab: [place] [facility] [place] [facility] [address] [facility] [address] Performing Lab: [facility] [address] [address] FERRITIN 214 ng/mL 20-300 Jan 06, 2024 09:55 AM [facility] VITAMIN B12 Specimen Type: SERUM No comment entered. Ordering Provider: BOY DELONG Report Released Date/Time: Nov 23, 2023 08:33 AM Reporting Lab: [facility] [address] [facility] [address] Performing Lab: [facility] [address] [facility] [address] VITAMIN B12 636 pg/mL 200-900 Jan 06, 2024 09:55 AM [facility] PSA Specimen Type: SERUM No comment entered. Ordering Provider: BOY DELONG Report Released Date/Time: Nov 23, 2023 08:33 AM Reporting Lab: [place] [facility] [address] [facility] [address] Performing Lab: [facility] [address] [address] PSA 1.09 ng/mL 0.00-4.00 Jan 06, 2024 09:55 AM [facility] CBC AND DIFF (AUTO) Specimen Type: BLOOD No comment entered. Ordering Provider: BOY DELONG Report Released Date/Time: Nov 23, 2023 08:33 AM Reporting Lab: [facility] [address] [facility] [address] Performing Lab: [facility] [address] [facility] [address] WBC 3.76 10*3/uL L 4.50-11.00 RBC 5.35 [...] 10*3/uL 0.00-0.00 Jan 06, 2024 09:55 AM [facility] HEMOGLOBIN A1C PANEL Specimen Type: BLOOD Comment: [...] 23, 2023 08:33 AM Reporting [facility] [address] [address] Performing Lab: [address] [address] HEMOGLOBIN A1C 5.5 4.0-5.6 Jan 06, 2024 09:55 AM [facility] TSH Specimen Type: SERUM No comment entered. Ordering Provider: BOY DELONG Report Released Date/Time: Nov 23, 2023 08:33 AM Reporting Lab: [address] [address] Performing Lab: [address] [address] TSH 3.01 u[IU]/mL 0.35-5.00 Vital Signs: All taken on the encounter date This section contains inpatient and outpatient Vital Signs collected on the date of the Encounter. Date/Time Temperature Pulse Blood Pressure Respiratory Rate SP02 Pain Height Weight Body Mass Index Source Jan 13, 2024 01:11 PM 124/70 3 [facility] Radiology Reports: +/- 30 days of [...] the Encounter. The data comes from all [place] treatment facilities. Date/Time Radiology Report Provider Source Jan 10, 2024 11:27 AM KNEE 3 VIEWS (LEFT): LUPILLO HONG [id number] -1960 M Exm Date: JAN 10, 2024@11:27 Req Phys: BOY DELONG Pat Loc: CWM/SO/PACT 3 WH (Req'g Loc) Img Loc: [facility]BUILDING 1 Service: [place] [address] (Case [id number] COMPLETE) KNEE 3 VIEWS (LEFT) (RAD Detailed) CPT:89497 Reason for Study: left knee pain Clinical History: any OA or joint erosions? did have gout L knee Report Status: Verified Date Reported: JAN 10, 2024 Date Verified: JAN 10, 2024 [employer] Rec[employer] E-Sig: Report: KNEE 3 VIEWS (LEFT) COMPARISON: [...] the right knee demonstrates severe medial and uldc-ny-crpfmdrk lateral tibiofemoral compartment joint degeneration, similar to [...] to prior. READING PHYSICIAN: Karon Blount M.D. -[phone] 01/10/2024 11:58 EST [facility] National Teleradiology Program [phone] (For Medical Practitioner Use Only) Attention Patients / Veterans: If you have questions or concerns about these test results, please contact your ordering provider or primary care team. Primary Diagnostic Code: NO ALERT REQUIRED Primary Interpreting Staff: RADIOLOGY,OUTSIDE SERVICE, Staff Physician / RADIOLOGY,OUTSIDE SERVICE [facility] Jan 10, 2024 11:[address] MAXILLOFACIAL W/O CONT: LUPILLO HONG [id number] -1960 M Exm Date: JAN 10, 2024@11:15 Req Phys: BOY DELONG Loc: CWM/SO/PACT 3 WH (Req'g Loc) Img Loc: [facility]/CT Service: Unknown [place] [facility] [place] [facility] [place] [address] (Case [id number] COMPLETE) CT MAXILLOFACIAL W/O CONT (CT Detailed) CPT:02746 Reason for Study: post nasal drip Clinical History: always cleasring thraot Report Status: Verified Date Reported: JAN 10, 2024 Date Verified: JAN 10, 2024 Materials Recycler E-Sig: Report: MAXILLOFACIAL CT WITHOUT IV CONTRAST/CT OF THE PARANASAL SINUSES WITHOUT IV CONTRAST: INDICATION: Post nasal drip. Patient reportedly always clearing throat. TECHNIQUE: Volumetric CT acquisition through the maxillofacial structures/paranasal sinuses, with axial, coronal and sagittal reformats, was performed at the local [place] facility. 159 images were received by the [place] National Teleradiology Program (NTP) for interpretation. RADIATION [...] commentary as above. READING PHYSICIAN: Boy Sun -[phone] 01/10/2024 16:06 EST [facility] National Teleradiology Program [phone] (For Medical Practitioner Use Only) Attention Patients / Veterans: If you have questions or concerns about these test results, please contact your ordering provider or primary care team. Primary Diagnostic Code: NO ALERT REQUIRED Primary Interpreting Staff: RADIOLOGY,OUTSIDE SERVICE, Staff Physician / RADIOLOGY,OUTSIDE SERVICE [facility] Jan 10, 2024 11:[address] THORAX W/O CONT: GELYLUPILLOJoey REIS [id number] -1960 M Exm Date: JAN 10, 2024@11:15 Req Phys: BOY DELONG Loc: CWM/SO/PACT 3 WH (Req'g Loc) Img Loc: [facility]/CT Service: [place] [address] (Case 84 COMPLETE) CT THORAX W/O CONT (CT Detailed) CPT:26434 Reason for Study: chest tightness Clinical History: post nasal drip coughing echo and ekg of heart neg for cardiac pathology back in may 2023 any signs interstitial lung disease? Report Status: Verified Date Reported: JAN 10, 2024 Date Verified: JAN 10, 2024 Materials Recycler E-Sig: Report: CT OF THE CHEST WITHOUT IV CONTRAST INDICATION: Chest tightness, post nasal drip, coughing. Assess for signs of interstitial lung disease. TECHNIQUE: Volumetric CT acquisition through the chest, with axial, coronal and sagittal reformats, was performed at the local [place] facility. 1194 images were received by the [place] National Teleradiology Program (NTP) for interpretation. RADIATION [...] as detailed above. READING PHYSICIAN: Boy Sun -[phone] 01/10/2024 17:01 [facility] National Teleradiology Program [phone] (For Medical Practitioner Use Only) Attention Patients / Veterans: If you have questions or concerns about these test results, please contact your ordering provider or primary care team. Primary Diagnostic Code: SIGNIFICANT ABNORMALITY, ATTN NEEDED Primary Interpreting Staff: RADIOLOGY,OUTSIDE SERVICE, Staff Physician / RADIOLOGY,OUTSIDE SERVICE [place] [facility] Encounter Notes: All associated encounter notes [...] Dyspnea Soc Hx: MARITAL STATUS - NEVER [employer] FROM Oct TO Oct ALL: Patient has [...] record, educating, counseling and coordinating care. /[facility] Signed: 01/13/2024 13:46 01/13/2024 ADDENDUM STATUS: COMPLETED total time spent 25 minutes /barbara [facility]INAL,[facility] Signed: 01/13/2024 13:48 JAM MCFADDEN [place] [facility]
--- OUTSIDE RECORDS SUMMARY | 2024-06-06 08:12 | XMS_ITS | Encounter Summary ---
Author Name [facility] [place] [facility] [place] Address [address] [place] [address] Care Team Providers Care Grain Grader Name Role Phone BOY DELONG Primary Care [...] OPTUM RX PRESCRIPT [facility] Mar 07, 2020 [facility] [id number] MARGARETH HONG RRYL PATIENT Selected Encounter This section includes the information on record at [place] for the Encounter. Date/Time Encounter Type Encounter Description Reason Provider Source Jun 21, 2023 08:00 AM OFF/OP EST JULY X REQ PHY/Q [facility] - IND ICD-10-CM Z71.89 Other specified counseling MCKENZIE TUCKER Encounter Template Text not used by [place] [...] activities for the patient from all [place] [facility]. This section includes future appointments and future [...] [facility] [place] [facility] Jun 24, 2023 11:30 AM AMBULATORY - REHAB MEDICIN E [facility] [place] [facility] July 22, 2023 01:00 PM AMBULATORY - PSYCHIATRY [facility] August 03, 2023 08:00 AM AMBULATORY - REHAB MEDICIN E [place] August 05, 2023 09:00 AM AMBULATORY - PSYCHIATRY [facility] [place] [facility] August 05, 2023 03:00 PM AMBULATORY - PSYCHIATRY [facility] [place] [facility] Aug 11, 2023 10:40 AM AMBULATORY [place]ICINE [place] [facility] [facility] Aug 19, 2023 10:00 AM AMBULATORY - REHAB MEDICIN E [place] Sep 09, 2023 09:30 AM AMBULATORY - PSYCHIATRY [facility] [place] [facility] Oct 14, 2023 09:30 AM AMBULATORY - PSYCHIATRY [facility] [place] [facility] Oct 28, 2023 10:00 AM AMBULATORY - PSYCHIATRY [facility] [place] [facility] Nov 11, 2023 11:00 AM AMBULATORY - PSYCHIATRY [facility] [place] [facility] Nov 14, 2023 03:00 PM AMBULATORY [place] MEDICINE [place] [facility] [facility] Nov 17, 2023 08:00 AM AM[place]ULATORY [place]ICINE [place] [facility] [place] [facility] Lab Results: +/- 30 days of [...] Range Comment Jun 09, 2023 08:32 AM [place] VITAMIN D (25-[place]) Specimen Type: SERUM No comment entered. Ordering Provider: BOY DELONG Report Released Date/Time: Dec 14, 2022 10:56 AM Reporting Lab: [address] [address] Performing Lab: [address] [address] VITAMIN D (25-OH) 21 ng/mL 20-50 Jun 09, 2023 08:32 AM [place] URINALYSIS Specimen Type: URINE Comment: If Glucose = >500 and Ketones are positive, please alert the Physician. Ordering Provider: BOY DELONG Report Released Date/Time: Dec 14, 2022 10:56 AM Reporting Lab: [address] [address] Performing Lab: [address] [address] UA COLOR Light-Yellow Yellow UA APPEARANCE Clear Clear UA GLUCOSE NEGATIVE mg/dL Negative UA KETONES NEGATIVE mg/dL Negative UA BLOOD NEGATIVE mg/dL Negative UA PROTEIN NEGATIVE mg/dL Negative UA NITRITE NEGATIVE mg/dL Negative UA BILIRUBIN NEGATIVE mg/dL Negative UA SPECIFIC GRAVITY 1.015 L 1.016-1.02 2 UA pH 5.5 5.0-9.0 UA UROBILINOGEN <2.0 mg/dL <2.0 UA LEUKOCYTE NEGATIVE Negative Jun 09, 2023 08:32 AM [place] VITAMIN B12 Specimen Type: SERUM No comment entered. Ordering Provider: BOY DELONG Report Released Date/Time: Dec 14, 2022 10:56 AM Reporting Lab: [address] [address] Performing Lab: [address] [address] VITAMIN B12 580 pg/mL 200-900 Jun 09, 2023 08:32 AM [place] FERRITIN Specimen Type: SERUM No comment entered. Ordering Provider: BOY DELONG Report Released Date/Time: Dec 14, 2022 10:56 AM Reporting Lab: [address] [address] Performing Lab: [address] [address] FERRITIN 199 ng/mL 20-300 Jun 09, 2023 08:32 AM [place] CBC AND DIFF (AUTO) Specimen Type: BLOOD No comment entered. Ordering Provider: BOY DELONG Report Released Date/Time: Dec 14, 2022 10:56 AM Reporting Lab: [facility] [address] [facility] [address] Performing Lab: [facility] [address] [facility] [address] WBC 4.38 10*3/uL L 4.50-11.00 RBC 5.42 10*6/uL 4.23-5.66 HGB 15.0 g/dL 12.8-17 HCT 44.9 39.2-50.4 MCV 82.8 fL 82-99 MCHC 33.4 g/dL 30.8-35.1 PLT 265 10*3/uL 140-360 RDW-CV 12.8 12.0-16.0 [place], Abs 0.37 10*3/uL 0.30-1.10 MCH 27.7 pg 26.2-32.6 Neut % 56.0 43.7-75.8 Lymph % 31.7 14.0-42.3 [place] % 8.4 5.1-13.7 Eos % 3.0 0.4-6.8 Baso % 0.7 0.1-2.0 Neut, Abs 2.45 10*3/uL 2.20-7.60 Lymph, Abs 1.39 10*3/uL 1.00-3.20 Eos, Abs 0.13 10*3/uL 0.03-0.44 Baso, Abs 0.03 10*3/uL 0.01-0.13 Immature Gran % 0.2 0.0-0.7 Immature Gran, Abs 0.01 10*3/uL 0.00-0.06 Jun 09, 2023 08:32 AM [place] RETICULOCYTES Specimen Type: BLOOD No comment entered. Ordering Provider: BOY DELONG Report Released Date/Time: Dec 14, 2022 10:56 AM Reporting Lab: [facility] [address] [address] Performing Lab: [facility] [address] [address] RETIC % 1.1 0.6-2.0 RETIC, ABS 61.8 10*3/uL 30.0-90.0 Ret-He % 31.3 27.9-42.0 Jun 09, 2023 08:32 AM [place] HEMOGLOBIN A1C PANEL Specimen Type: BLOOD Comment: [...] Dec 14, 2022 10:56 AM Reporting Lab: [place] [facility] [place] [id number] Performing Lab: [facility] [address] HEMOGLOBIN A1C 5.8 H 4.0-5.6 Jun 09, 2023 08:32 AM [place] TSH Specimen Type: SERUM No comment entered. Ordering Provider: BOY DELONG Report Released Date/Time: Dec 14, 2022 10:56 AM Reporting Lab: [place] [facility] [place] [address] [address] Performing Lab: [place] [facility] [address] TSH 2.27 u[IU]/mL 0.35-5.00 Jun 09, 2023 08:32 AM [place] PSA Specimen Type: SERUM No comment entered. Ordering Provider: BOY DELONG Report Released Date/Time: Dec 14, 2022 10:56 AM Reporting Lab: [place] [facility] [address] [address] Performing Lab: [place] [facility] [id number] PSA 2.13 ng/mL 0.00-4.00 Jun 09, 2023 08:32 AM [place] LIVER FUNCTION Specimen Type: SERUM No comment entered. Ordering Provider: BOY DELONG Report Released Date/Time: Dec 14, 2022 10:56 AM Reporting Lab: [address] [address] Performing Lab: [address] [address] PROTEIN,TOTAL 6.9 g/dL 6.0-8.3 ALBUMIN 4.0 g/dL 3.5-5.0 ALKALINE PHOSPHATASE 66 U/L 40-150 AST 19 U/L 5-34 ALT 27 U/L BILIRUBIN, TOTAL 0.5 mg/dL 0.2-1.2 Jun 09, 2023 08:32 AM [place] LIPID PANEL FASTING Specimen Type: SERUM No comment entered. Ordering Provider: BOY DELONG Report Released Date/Time: Dec 14, 2022 10:56 AM Reporting Lab: [address] [address] Performing Lab: [address] [address] CHOLESTEROL 173 mg/dL TRIGLYCERIDE 81 mg/dL 0-150 LDL calculated 118 mg/dL 0-129 CHOL/HDL 4.4 HDL CHOLESTEROL 39 mg/dL L 40-60 Jun 09, 2023 08:32 AM [place] BASIC METABOLIC PANEL (fasting) Specime n Type: SERUM No comment entered. Ordering Provider: BOY DELONG Report Released Date/Time: Dec 14, 2022 10:56 AM Reporting Lab: [address] [address] Performing Lab: [address] [address] UREA NITROGEN 15 mg/dL 7-25 GLUCOSE 113 mg/dL H 65-100 SODIUM 141 mmol/L 135-145 POTASSIUM 3.9 mmol/L 3.5-5.0 CHLORIDE 108 mmol/L 100-110 CO2 24 meq/L 20-30 CREATININE, Serum 1.17 mg/dL 0.50-1.40 eGFR(CKD-EPI 2020) 71 mL/min >60 Jun 09, 2023 08:32 AM [place] URIC ACID Specimen Type: SERUM No comment entered. Ordering Provider: BOY DELONG Report Released Date/Time: Dec 14, 2022 10:56 AM Reporting Lab: [facility] [address] [facility] [address] Performing Lab: [facility] [address] [facility] [address] URIC ACID 5.6 mg/dL 3.5-7.2 Jun 09, 2023 08:32 AM [place] CALCIUM Specimen Type: SERUM No comment entered. Ordering Provider: BOY DELONG Report Released Date/Time: Dec 14, 2022 10:56 AM Reporting Lab: [facility] [address] [facility] [address] Performing Lab: [facility] [address] [facility] [address] CALCIUM 8.8 mg/dL 8.5-10.2 Social History: Smoking Status (Most current) and Tobacco Use (All prior to encounter date) This section includes the most current, and the historical, smoking and tobacco- related health factors from the [place] facility where the Encounter took place. Current Smoking Status This section includes the most current smoking, or tobacco-related health factor, from the [place] facility where the Encounter took place. Date/Time Current Smoking Status Comment Matthew ity Jun 10, 2023 11:30 AM [facility] [place] Tobacco Use History This section includes a history of the smoking, or tobacco-related health factors, that were collected on or before the date of the Encounter. The data comes from the [place] facility where the Encounter took place. Date/Time Smoking Status/Tobacco Use Comment F acility May 14, 2022 11:30 AM [place]TOBACCO NEVER USED [place] Mar 27, 2021 11:00 AM [facility] [place] Radiology Reports: +/- 30 days of the [...] the Encounter. The data comes from all [place] treatment facilities. Date/Time Radiology Report Provider Source Jun 24, 2023 10:59 AM ABDOMINAL ULTRASOUND: LUPILLO HONG [id number] -[id number] M Exm Date: JUN 24, 2023@10:59 Req Phys: BOY DELONG Loc: CWM/SO/PACT 3 WH (Req'g Loc) Img Loc: ULTRASOUND Service: Unknown (Case [id number] COMPLETE) [employer] ABDOMEN Conjur (US Detailed) CPT:93120 Reason for Study: umbilical hernia Clinical History: need views before seeing karen trujillo Report Status: Verified Date Reported: JUN 25, 2023 Date Verified: JUN 25, 2023 Paid Search Specialist E-Sig: Report: [place] [[place]] Clinical History: Umbilical hernia. Comparison: None [...] containing hernia. READING PHYSICIAN: Mikhail Andrews MD -[id number] 06/24/2023 23:15 PDT [facility] National Teleradiology Program [phone] (For Medical Practitioner Use Only) Attention Patients / Veterans: If you have questions or concerns about these test results, please contact your ordering provider or primary care team. Primary Diagnostic Code: NO ALERT REQUIRED Primary Interpreting Staff: RADIOLOGY,OUTSIDE SERVICE, Staff Physician / RADIOLOGY,OUTSIDE SERVICE [place] [facility] Encounter Notes: All associated encounter notes This [...] see note dated 06/20. /ivone/ GALILEA Guevara CANNON FIRE DIRECTION SPECIALIST Signed: 06/21/2023 08:56 MCKENZIE TUCKER CAROL Jun 21, 2023 08:30 AM TELEHEALTH NOTE: LOCAL TITLE: [place] VIDEO CONNECT SOCIAL WORK NOTE STANDARD TITLE: TELEHEALTH NOTE DATE OF NOTE: JUN 21, 2023@08:30 ENTRY DATE: JUN 21, 2023@08:30:30 AUTHOR: MCKENZIE TUCKER EXP COSIGNER: URGENCY: STATUS: COMPLETED [place] [facility] Connect (VVC) Standard Documentation VVC Clinician Resources Only: E911 (Emergency Call Relay Center): [phone] [place] [employer] Crisis Line - 988 then press #1. [facility] Suicide Coordinator [phone], Ext. [phone]; Back-up Ext. [phone] [place] Police, [place] [phone] Introduction: Visit is being conducted by [place] [employer] Connect. identified with 2 identifiers: [X] Full Name [X] Date of [ ] [place] ID Card Emergency Plan: [place] confirmed and/or provided the following information in case of emergency or technology failure. PATIENT PHONE - PHONE NUMBER [CELLULAR] - NONE FOUND Is patient phone number correct, if not, enter below: [place]'s phone number: s/p LUPILLO HONG [address], [place], [address] [place]'s present location and address for appointment: s/a [place]'s emergency contact name and phone number: as in chart reported that location is private and safe: Yes Informed Consent: [place] informed of the risks and benefits of Telehealth video care. [place] has the right to refuse video services. If refuses video visit, a vjrt-hu-suzm visit will be scheduled. 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 Financially things have been difficult, he recently [...] if he spends too much at the [employer]. was polite and cooperative, clean cut, wearing his work shirt. Leading questions needed to be asked, he did not speak easily about himself or his situation. This is his first experience w . He is unsure about psych medications at this time- I am on so many right now I just don't know . consult placed. /ivone/ GALILEA Guevara CANNON FIRE DIRECTION SPECIALIST Signed: 06/21/2023 08:55 MCKENZIE TUCKER [place]
--- OUTSIDE RECORDS SUMMARY | 2024-06-06 08:12 | XMS_ITS ---
Author Name [facility] [place] [facility] [place] Address [address] [place] [address] Care Team Providers Care Medart Operator Name Role Phone BOY DELONG Primary [...] PRESCRIPT ION HEALT H [facility] Mar 07, 2020 [facility] [id number] MARGARETH HONG RRYL PATIENT Selected Encounter [...] depressive disorder, single episode, moderate PRETTY MEEHAN [facility] Plan of Treatment: Future Appointments (+ 6 months) and Future Tests (+/- 45 days) The Plan of Treatment section includes future care activities for the patient from all [place] [facility]. This section includes future appointments and future [...] 14, 2023 03:00 PM AMBULATORY [place]ICINE [place] [facility] Nov 17, 2023 08:00 AM AM[place] MEDICINE [place] [facility] Jan 06, 2024 10:00 AM AMBULATORY - MEDICINE [facility] Jan 10, 2024 11:15 AM AMBULATORY - NONE [place] [facility] [place] [facility] Jan 10, 2024 11:30 AM AMBULATORY - NONE [place] [facility] [place] [facility] Jan 13, 2024 10:00 AM AMBULATORY - PSYCHIATRY [place] [facility] [place] [facility] Jan 13, 2024 01:00 PM AMBULATORY - MEDICINE [place] [facility] Feb 03, 2024 03:30 PM AMBULATORY - MEDICINE [facility] Mar 01, 2024 11:00 AM AMBULATORY - MEDICINE [place] [facility] Apr 06, 2024 10:00 AM AMBULATORY - PSYCHIATRY [place] [facility] [facility] Apr 10, 2024 09:00 AM AMBULATORY - PSYCHIATRY [place] [facility] [facility] Lab Results: +/- 30 days of [...] Range Comment Nov 17, 2023 08:30 AM [place] [facility] [facility] CULTURE,BODY FLUID PANEL(C.D.H) Specimen Type: SYNOVIAL FLUID Comment: Refer to CPRS: [place] Imag. Display for Lab Results Ordering Provider: REESE MCFADDEN Report Released Date/Time: Nov 17, 2023 09:15 AM Reporting Lab: [address] [address] Performing Lab: [facility] [address] [facility] [address] GRAM STAIN(cdh) comment ANAEROBIC CULTURE(cdh) comment CULTURE,BODY FLUID(cdh) comment Nov 17, 2023 08:30 AM [facility] GLUCOSE, SYNOVIAL (q) Specimen Type: SYNOVIAL FLUID Comment: Synovial fluid glucose values are equivalent to plasma values if obtained from a fasting patient. The difference between the plasma glucose and synovial fluid glucose value should be <10 mg/dL. Test Performed by [employer], [employer] [facility], [address] [place] [address] Rajesh Doss M.D., Ph.D., Director of Laboratories , [place] [id number] TEST PERFORMED AT: , Ordering Provider: REESE MCFADDEN Report Released Date/Time: Nov 17, 2023 09:15 AM Reporting Lab: [address] [address] Performing Lab: [facility] [address] [address] GLUCOSE, SYNOVIAL (q) 145 mg/dL Nov 17, 2023 08:30 AM [facility] SYNOVIAL FLUID CRYSTALS PANEL Specimen Type: SYNOVIAL FLUID No comment entered. Ordering Provider: REESE MCFADDEN Report Released Date/Time: Nov 17, 2023 09:24 AM Reporting Lab: [facility] [address] [facility] [address] Performing Lab: [facility] [address] [facility] [address] CRYSTALS,BF Positive Negative MSU CRYSTALS,BF Present Negative MSU CRYSTAL EXTRA,BF Present Negative MSU CRYSTAL INTRA,BF Present Negative Nov 17, 2023 08:30 AM [facility] CELL COUNT (SYNOVIAL FLUID) Specimen Type: SYNOVIAL FLUID Comment: *CRYSTALS Not Performed: Nov 17, 2023@09:25 by [id number] *ADMITTING CLERK Reason: see wrled [id number] for results Ordering Provider: REESE MCFADDEN Report Released Date/Time: Nov 17, 2023 09:15 AM Reporting Lab: [facility] [address] [facility] [address] Performing Lab: [facility] [address] [facility] [address] WBC 350 RBC <3000 COLOR Y VOLUME [...] AUTHOR: DIEUDONNE MEEHAN COSIGNER: URGENCY: STATUS: COMPLETED [place] Video Connect (VVC) Standard Documentation VVC Clinician Resources Only: E911 (Emergency Call Relay Center): [phone] [facility] Crisis Line - 988 then press #1. [facility] Suicide Coordinator [phone], Ext. [phone]; Back-up Ext. [phone] [place] Police, [place] [phone] Introduction: Visit is being conducted by [place] [employer] Connect. identified with 2 identifiers: [X] Full Name [X] Date of [ ] [place] ID Card Emergency Plan: confirmed and/or provided the following information in case of emergency or technology failure. PATIENT PHONE - PHONE NUMBER [CELLULAR] - NONE FOUND Is patient phone number correct, if not, enter below: [facility] phone number: LUPILLO HONG [address], [place], [address] [facility] present location and address for appointment: at home [facility] emergency contact name and phone number: on file [facility] reported that location is private and safe: Yes Informed Consent: informed of the risks and benefits of Telehealth video care. has the right to refuse video services. If refuses video visit, a bmke-yv-qnti visit will be scheduled. [place] verbalized consent for this video visit: Yes [facility] provided consent for any other persons present [...] 62yo BLACK OR MALE -=-=-=-=-=-=-=-=-=-=-=-=-=-=- =-=-=-=-=-==-=-=-=-=-=-=-=-=- =-=-=-=-=-=Subjective- [facility]on was last seen on [id number] with the [...] regimen. mentions plan to start therapy soon. [facility] reports the following regarding medications: -N--Y- [X][ [...] following review of all active psychotropic and JOURNEYMAN GLAZIER-active agents is to ensure pharmacotherapy is evaluated [...] RTC Interval: every 8-12weeks Next Apt: TBD [facility] was provided medical technical writer's contact information and instructed to contact medical technical writer as needed for any changes to scheduling or concerns otherwise. is aware of actions to take if they feel unsafe, including calling the 's Crisis Line (#[phone]); calling 911; or going to the nearest urgent care or emergency room. The is also aware of how to contact the clinic should the require additional services prior to the next appointment. Time spent on chart review, session, and documentation: 30minutes /es/ Dieudonne Meehan PharmD Clinical Pharmacist Practitioner Signed: 10/31/2023 10:54 DIEUDONNE MEEHAN [place] [facility]
--- OUTSIDE RECORDS SUMMARY | 2024-06-06 08:12 | XMS_ITS | Encounter Summary ---
Author Name [facility] [facility] [place] Organization [facility] [place] [facility] [place] Address [address] [place] [address] Care Team Providers Care Ben Day Artist Name Role Phone BOY DELONG Primary [...] PRESCRIPT ION HEALT H [facility] Mar 07, 2020 [facility] [id number] MARGARETH HONG RRYL PATIENT Selected Encounter This section includes the information on record at [place] for the Encounter. Date/Time Encounter Type Encounter Description Reason Provider Source Apr 10, 2024 09:00 AM MTMS BY PHARM ADDL 15 MIN [facility] - IND ICD-10-CM F32.1 Major depressive disorder, single episode, moderate PRETTY MEEHAN Rosibel Encounter Template Text not used by [place] Assessments - Encounter Diagnoses This section includes the primary and secondary diagnoses documented for the Encounter. Date/Time Primary/Secondary Diagnosis Diagnosis Name Provider Source Apr 10, 2024 09:22 AM PRIMARY Major depressive disorder, single episode, moderate PRETTY MEEHAN [facility] Plan of Treatment: Future Appointments (+ 6 months) and Future Tests (+/- 45 days) The Plan of Treatment section includes future care activities for the patient from all [place] [facility] This section includes future appointments and future orders which are active, pending or scheduled. Future Appointments This section includes appointments that were scheduled to occur 6 months from the date of the Encounter, up to a maximum of 20 appointments. The data comes from all [facility]. Appointment Date/Time Appointment Type Appointme nt Facility Name May 15, 2024 09:00 AM AMBULATORY - PSYCHIATRY [facility] May 15, 2024 10:30 AM AMBULATORY MEDICINE [facility] May 28, 2024 10:30 AM AMBULATORY MEDICINE [facility] July 10, 2024 10:00 AM AMBULATORY - PSYCHIATRY [facility] Active, Pending, and Scheduled Orders This section includes a listing of several types of active, pending, and scheduled orders, including clinic medications orders, diagnostic test orders, procedure orders and consult orders; where the start date of the order is 45 days before the date of the Encounter or 45 days after the date of the Encounter. The data comes from all [facility]. Test Date/Time Test Type Test Details Facility Name Apr 10, 2024 09:42 AM Consult Order PSYCHOTHER APOLINAR ELDER/NOLAN OUTPT Cons Retail Coverage Merchandiser [employer] [facility] Encounter Notes: All associated encounter notes This section contains the clinical notes associated to the Encounter. Date/Time Encounter Note(s) Provider Source Apr 10, 2024 09:01 AM PHARMACY MEDICATION MGT NOTE: LOCAL TITLE: CLINICAL PHARMACIST F/U NOTE STANDARD TITLE: PHARMACY MEDICATION MGT NOTE DATE OF NOTE: APR 10, 2024@09:01 ENTRY DATE: APR 10, 2024@09:01:39 AUTHOR: DIEUDONNE MEEHAN COSIGNER: URGENCY: STATUS: COMPLETED [facility] Connect (VVC) Standard Documentation VVC Clinician Resources Only: E911 (Emergency Call Relay Center): [phone] [facility] Crisis Line - 988 then press #1. CWM Suicide Coordinator [phone], Ext. [phone]; Back-up Ext. [phone] [place] Police, Valente VILLARREAL [phone] Introduction: Visit is being conducted by [place] Video Connect. Bernard identified with 2 identifiers: [X] Full Name [X] Date of [ ] VA ID Card Emergency Plan: Bernard confirmed and/or provided the following information in case of emergency or technology failure. PATIENT PHONE - PHONE NUMBER [CELLULAR] - NONE FOUND Is patient phone number correct, if not, enter below: 's phone number: LUPILLO HONG [address], [place], [address] Bernard's present location and address for appointment: at home Bernard's emergency contact name and phone number: on file reported that location is private and safe: Yes Informed Consent: Bernard informed of the risks and benefits of Telehealth video care. has the right to refuse video services. If refuses video visit, a [id number] visit will be scheduled. Bernard verbalized consent for this video visit: Yes [...] 63yo BLACK OR MALE -=-=-=-=-=-=-=-=-=-=-=-=-=-=- =-=-=-=-=-==-=-=-=-=-=-=-=-=- =-=-=-=-=-=Subjective- Bernard was last seen on [id number] with the following pharmacotherapeutic plan: [X] No changes [ ] Discontinue: [ ] Initiate: [ ] Change the following: Treating Dx(s): MDD INTERIM HISTORY pt reports to be okay. mentions that there was an unexpected in the family last week. support provided. expressed that prior to this, he had been maintaining...I still have moments but they were never too high or low. mentions that he had been socializing more within the family; and that his youngest daughter has moved back. states it's had to deal with all of the changes. discussed titrating sertraline today. medication education provided, to which the pt provided verbal unsertanding and agreed to the plan. additionally, pt agreeable to psychotherapy services at this time. Bernard reports the following regarding medications: -N--Y- [X][ [...] INSOMNIA Indication: FOR CHRONIC TROUBLE SLEEPING 7) HYDROCHLOROTHIAZIDE 25MG TAB TAKE ONE-HALF TABLET BY MOUTH ACTIVE ONCE DAILY Indication: FOR HIGH BLOOD PRESSURE 8) MULTIVITAMIN CAP/TAB TAKE 1 TABLET BY MOUTH ONCE DAILY ACTIVE Indication: FOR VITAMIN SUPPLEMENTATION 9) SERTRALINE HCL 100MG TAB TAKE ONE-HALF TABLET BY MOUTH ONCE ACTIVE DAILY Indication: FOR MAJOR DEPRESSIVE DISORDER 10) SILDENAFIL CITRATE [...] following review of all active psychotropic and CLOTHESPIN DRIER OPERATOR-active agents is to ensure pharmacotherapy is evaluated for safety and efficacy as they relate to behaviorial and physiological changes and outcomes MDD - sertraline 50mg daily > tolerating; will titrate to effect - doxepin 3mg hs prn for sleep PLAN 1. Pharmacotherapy [ ] No changes [ ] Discontinue: [ ] Initiate: [X] Change the following: increase sertraline to 100mg daily 2. Labs/tests: n/a 3. Consult(s) or [...] Other: RTC Interval: every 4-6weeks Next Apt: [id number]@0900 was provided mortgage or loan underwriter's contact information and instructed to contact mortgage or loan underwriter as needed for any changes to scheduling or concerns otherwise. is aware of actions to take if they feel unsafe, including calling the 's Crisis Line (#251); calling 911; or going to the nearest urgent care or emergency room. The is also aware of how to contact the clinic should the require additional services prior to the next appointment. Time spent on chart review, session, and documentation: 30minutes /es/ Dieudonne Meehan PharmD Clinical Pharmacist Practitioner Signed: 04/10/2024 09:40 [facility]UDONNE [facility]EEHAN [facility]
--- OUTSIDE RECORDS SUMMARY | 2024-06-06 08:12 | XMS_ITS | Encounter Summary ---
Author Name [facility] [facility] [place] Organization [facility] [place] Address [address] [place] [address] Care Team Providers Care Pie Cutter Name Role Phone BOY DELONG Primary [...] RX PRESCRIPT ION HEALT H [facility] Mar 07, 2020 [facility] [id number] MARGARETH HONG RRYL PATIENT Selected Encounter This section includes the information on record at [place] for the Encounter. Date/Time Encounter Type Encounter Description Reason Pro vider Source Jun 17, 2023 08:00 AM Outpatient Encounter [facility] Encounter Template Text not used by [place] [...] AMBULATORY - NONE [facility] [place] [facility] Jun 24, 2023 11:30 AM AMBULATORY - REHAB MEDICIN [facility] [place] [facility] July 22, 2023 01:00 PM AMBULATORY - PSYCHIATRY [facility] August 03, 2023 08:00 AM AMBULATORY - REHAB MEDICIN [facility] August 05, 2023 09:00 AM AMBULATORY - PS[facility]CHIATRY [facility] [place] [facility] August 05, 2023 03:00 PM AMBULATORY - [facility]CHIAT[facility] [place] [facility] Aug 11, 2023 10:40 AM AM[facility]UL[facility]ORY - [facility]ICINE [facility] [place] [facility] Aug 19, 2023 10:00 AM AMBULATORY - REHAB MEDICIN E [facility] Sep 09, 2023 09:30 AM AMBULATORY - PS[facility]CHIATRY [facility] [place] [facility] Oct 14, 2023 09:30 AM AMBULATORY [facility]IAT[facility] [place] [facility] Oct 28, 2023 10:00 AM AMBULATORY - PS[facility]CHIATRY [facility] [place] [facility] Nov 11, 2023 11:00 AM AMBULATORY - PS[facility]CHIATRY [facility] [place] [facility] Nov 14, 2023 03:00 PM AMBULATORY - MEDICINE [facility] [place] [facility] Nov 17, 2023 08:00 AM AMBULATORY - MEDICINE [facility] [place] [facility] Lab Results: +/- 30 days of [...] Range Comment Jun 09, 2023 08:32 AM [place] VITAMIN D (25-OH) Specimen Type: SERUM No comment entered. Ordering Provider: BOY DELONG Report Released Date/Time: Dec 14, 2022 10:56 AM Reporting [facility]: [facility] [address] [address] Performing Lab: [facility] [address] [address] VITAMIN D (25-OH) 21 ng/mL 20-50 Jun 09, 2023 08:32 AM [facility] URINALYSIS Specimen Type: URINE Comment: If Glucose = >500 and Ketones are positive, please alert the Physician. Ordering Provider: BOY DELONG Report Released Date/Time: Dec 14, 2022 10:56 AM Reporting Lab: [address] [address] Performing Lab: [address] [address] UA COLOR Light-Yellow Yellow UA APPEARANCE Clear Clear UA GLUCOSE NEGATIVE mg/dL Negative UA KETONES NEGATIVE mg/dL Negative UA BLOOD NEGATIVE mg/dL Negative UA PROTEIN NEGATIVE mg/dL Negative UA NITRITE NEGATIVE mg/dL Negative UA BILIRUBIN NEGATIVE mg/dL Negative UA SPECIFIC GRAVITY 1.015 L 1.016-1.02 2 UA pH 5.5 5.0-9.0 UA UROBILINOGEN <2.0 mg/dL <2.0 UA LEUKOCYTE NEGATIVE Negative Jun 09, 2023 08:32 AM [place] VITAMIN B12 Specimen Type: SERUM No comment entered. Ordering Provider: BOY DELONG Report Released Date/Time: Dec 14, 2022 10:56 AM Reporting Lab: [address] [address] Performing Lab: [address] [address] VITAMIN B12 580 pg/mL 200-900 Jun 09, 2023 08:32 AM [place] FERRITIN Specimen Type: SERUM No comment entered. Ordering Provider: BOY DELONG Report Released Date/Time: Dec 14, 2022 10:56 AM Reporting Lab: [address] [address] Performing Lab: [address] [address] FERRITIN 199 ng/mL 20-300 Jun 09, 2023 08:32 AM [place] RETICULOCYTES Specimen Type: BLOOD No comment entered. Ordering Provider: BOY DELONG Report Released Date/Time: Dec 14, 2022 10:56 AM Reporting Lab: [address] [place] [address] Performing Lab: [address] [address] RETIC % 1.1 0.6-2.0 RETIC, ABS 61.8 10*3/uL 30.0-90.0 Ret-He % 31.3 27.9-42.0 Jun 09, 2023 08:32 AM [place] HEMOGLOBIN A1C PANEL Specimen Type: BLOOD Comment: [...] 14, 2022 10:56 AM Reporting Lab: [address] [address] Performing Lab: [address] [address] HEMOGLOBIN A1C 5.8 H 4.0-5.6 Jun 09, 2023 08:32 AM [place] CBC AND DIFF (AUTO) Specimen Type: BLOOD No comment entered. Ordering Provider: BOY DELONG Report Released Date/Time: Dec 14, 2022 10:56 AM Reporting Lab: [address] [address] Performing Lab: [address] [address] WBC 4.38 10*3/uL L 4.50-11.00 RBC 5.42 10*6/uL 4.23-5.66 HGB 15.0 g/dL 12.8-17 HCT 44.9 39.2-50.4 MCV 82.8 fL 82-99 MCHC 33.4 g/dL 30.8-35.1 PLT 265 10*3/uL 140-360 RDW-CV 12.8 12.0-16.0 Davidson, Abs 0.37 10*3/uL 0.30-1.10 MCH 27.7 pg 26.2-32.6 Neut % 56.0 43.7-75.8 Lymph % 31.7 14.0-42.3 Davidson % 8.4 5.1-13.7 Eos % 3.0 0.4-6.8 Baso % 0.7 0.1-2.0 Neut, Abs 2.45 10*3/uL 2.20-7.60 Lymph, Abs 1.39 10*3/uL 1.00-3.20 Eos, Abs 0.13 10*3/uL 0.03-0.44 Baso, Abs 0.03 10*3/uL 0.01-0.13 Immature Gran % 0.2 0.0-0.7 Immature Gran, Abs 0.01 10*3/uL 0.00-0.06 Jun 09, 2023 08:32 AM [place] PSA Specimen Type: SERUM No comment entered. Ordering Provider: BOY DELONG Report Released Date/Time: Dec 14, 2022 10:56 AM Reporting Lab: [facility] [address] [address] Performing Lab: [facility] [address] [address] PSA 2.13 ng/mL 0.00-4.00 Jun 09, 2023 08:32 AM [place] TSH Specimen Type: SERUM No comment entered. Ordering Provider: BOY DELONG Report Released Date/Time: Dec 14, 2022 10:56 AM Reporting Lab: [facility] [address] [address] Performing Lab: [facility] [address] [address] TSH 2.27 u[IU]/mL 0.35-5.00 Jun 09, 2023 08:32 AM [place] BASIC METABOLIC PANEL (fasting) Specime n Type: SERUM No comment entered. Ordering Provider: BOY DELONG Report Released Date/Time: Dec 14, 2022 10:56 AM Reporting Lab: [facility] [address] [address] Performing Lab: [facility] [address] [address] UREA NITROGEN 15 mg/dL 7-25 GLUCOSE 113 mg/dL H 65-100 SODIUM 141 mmol/L 135-145 POTASSIUM 3.9 mmol/L 3.5-5.0 CHLORIDE 108 mmol/L 100-110 CO2 24 meq/L 20-30 CREATININE, Serum 1.17 mg/dL 0.50-1.40 eGFR(CKD-EPI 2020) 71 mL/min >60 Jun 09, 2023 08:32 AM [place] LIVER FUNCTION Specimen Type: SERUM No comment entered. Ordering Provider: BOY DELONG Report Released Date/Time: Dec 14, 2022 10:56 AM Reporting Lab: [facility] [address] [address] Performing Lab: [address] [address] PROTEIN,TOTAL 6.9 g/dL 6.0-8.3 ALBUMIN 4.0 g/dL 3.5-5.0 ALKALINE PHOSPHATASE 66 U/L 40-150 AST 19 U/L 5-34 ALT 27 U/L BILIRUBIN, TOTAL 0.5 mg/dL 0.2-1.2 Jun 09, 2023 08:32 AM [place] LIPID PANEL FASTING Specimen Type: SERUM No comment entered. Ordering Provider: BOY DELONG Report Released Date/Time: Dec 14, 2022 10:56 AM Reporting Lab: [facility] [address] [address] Performing Lab: [address] [address] CHOLESTEROL 173 mg/dL TRIGLYCERIDE 81 mg/dL 0-150 LDL calculated 118 mg/dL 0-129 CHOL/HDL 4.4 HDL CHOLESTEROL 39 mg/dL L 40-60 Jun 09, 2023 08:32 AM [place] URIC ACID Specimen Type: SERUM No comment entered. Ordering Provider: BOY DELONG Report Released Date/Time: Dec 14, 2022 10:56 AM Reporting Lab: [facility] [address] [address] Performing Lab: [address] [address] URIC ACID 5.6 mg/dL 3.5-7.2 Jun 09, 2023 08:32 AM [place] CALCIUM Specimen Type: SERUM No comment entered. Ordering Provider: BOY DELONG Report Released Date/Time: Dec 14, 2022 10:56 AM Reporting Lab: [facility] [address] [facility] [address] Performing Lab: [facility] [address] [address] CALCIUM 8.8 mg/dL 8.5-10.2 Social History: Smoking Status (Most current) and Tobacco Use (All prior to encounter date) This section includes the most current, and the historical, smoking and tobacco- related health factors from the [place] facility where the Encounter took place. Current Smoking Status This section includes the most current smoking, or tobacco-related health factor, from the [place] facility where the Encounter took place. Date/Time Current Smoking Status Comment Facil ity Jun 10, 2023 11:30 AM [place]-TOBACCO NEVER USED [place] Tobacco Use History This section includes a history of the smoking, or tobacco-related health factors, that were collected on or before the date of the Encounter. The data comes from the [place] facility where the Encounter took place. Date/Time Smoking Status/Tobacco Use Comment F acility May 14, 2022 11:30 AM [place]-TOBACCO NEVER USED [place] Mar 27, 2021 11:00 AM [place]-TOBACCO NEVER USED [facility] Radiology Reports: +/- 30 days of the [...] 2023 10:59 AM ABDOMINAL ULTRASOUND: LUPILLO HONG [id number] -1960 M Exm Date: JUN 24, 2023@10:59 Req Phys: BOY DELONG Loc: CWM/SO/PACT 3 WH (Req'g Loc) Img Loc: ULTRASOUND Service: Unknown (Case [id number] COMPLETE) ECHOGRAM ABDOMEN LTD (US Detailed) CPT:90566 Reason for Study: umbilical hernia Clinical History: need views before seeing karen trujillo Report Status: Verified Date Reported: JUN 25, 2023 Date Verified: JUN 25, 2023 Service Trainer E-Sig: Report: ECHOGRAM ABDOMEN LTD [PRINTSET] Clinical [...] containing hernia. READING PHYSICIAN: Mikhail Andrews MD -[id number] 06/24/2023 23:15 PDT [facility] National Teleradiology Program [phone] (For Medical Practitioner Use Only) Attention Patients / Veterans: If you have questions or concerns about these test results, please contact your ordering provider or primary care team. Primary Diagnostic Code: NO ALERT REQUIRED Primary Interpreting Staff: RADIOLOGY,OUTSIDE SERVICE, Staff Physician / RADIOLOGY,OUTSIDE SERVICE [facility] Encounter Notes: [...] marked NS and Letter Sent alerting consult warehouse pricing and inventory clerk. /ivone/ RAQUEL HANSEN ADVANCED MOTOR COACH DRIVER Signed: 06/20/2023 09:32 Receipt Acknowledged By: 06/20/2023 10:05 /ivone/ NELLI NGUYEN Advanced Inoculator ======== --- Original Document --- 06/17/23 APPOINTMENT NO SHOW: Patient Name: LUPILLO HONG Patient SSN: [id number] Date and time of Appointment No show [...] 10:00 CWM/SO/PACT 3 WH /ivone/ GALILEA Guevara REGIONAL TRAINING MANAGER Signed: 06/17/2023 12:45 Receipt Acknowledged By: 06/20/2023 09:32 /ivone/ RAQUEL HANSEN ADVANCED MOTOR COACH DRIVER RAQUEL HANSEN Jun 17, 2023 12:43 PM CLERICAL NOTE: LOCAL TITLE: APPOINTMENT NO SHOW STANDARD TITLE: CLERICAL NOTE DATE OF NOTE: JUN 17, 2023@12:43 ENTRY DATE: JUN 17, 2023@12:44 AUTHOR: MCKENZIE TUCKER EXP COSIGNER: URGENCY: STATUS: COMPLETED APPOINTMENT NO SHOW Has ADDENDA Patient Name: LUPILLO HONG Patient SSN: [id number] Date and time of Appointment No show [...] 01/06/2024 10:00 CWM/SO/PACT 3 /ivone/ GALILEA Guevara REGIONAL TRAINING MANAGER Signed: 06/17/2023 12:45 Receipt Acknowledged By: 06/20/2023 09:32 /ivone/ RAQUEL HANSEN ADVANCED MOTOR COACH DRIVER 06/20/2023 ADDENDUM STATUS: COMPLETED Appt marked NS and Letter Sent alerting consult warehouse pricing and inventory clerk. /ivone/ RAQUEL HANSEN ADVANCED MOTOR COACH DRIVER Signed: 06/20/2023 09:32 Receipt Acknowledged By: * AWAITING SIGNATURE * NELLI NGUYEN,MCKENZIE TIDWELLFIELD
== END 2024-06-06 08:36 | disposition home or self-care (01) ==
LOC: HO.HOS 08:04
PROVIDERS: Visit Provider Orthopaedic Surgery
DX: M17.0 Bilateral primary osteoarthritis of knee (principal)
CPT/HCPCS: 99203; G2211

== ENCOUNTER → 2024-06-06 08:04 | Outpatient (BNVA) | payer OTHER, SELFPAY | PROVIDERS: Visit Provider Orthopaedic Surgery | DX: M17.0 Bilateral primary osteoarthritis of knee (principal) | CPT/HCPCS: 99202 ==